=== PATIENT | female | born 1965 | race Caucasian/White ===

== ENCOUNTER 2017-01-14 17:33 | Inpatient (IN) | payer BC ==
[~2017-01-14] VITALS: Ht 165.1 cm; Wt 83.2 kg
[~2017-01-14 17:33] MED LIST: DIPH25CA65 PO; LORA-741 PO; LSX/40 PO; SPIR100T PO; TRAM-10 PO
[2017-01-14] MEDS ORDERED: PANT40TA PO (18:42)
[2017-01-14] MEDS ORDERED: ESCI10TA17 PO (18:42)
[2017-01-14] MEDS ORDERED: SODIUM CHLORIDE 0.9% 1000ML 1,000 ML IV STA (19:26)
[2017-01-14] MEDS ORDERED: OPTIRAY 320 IV PRN (19:30)
[2017-01-14 20:12] LABS: URINE APPEARANCE CLEAR (CLEAR); URINE BILIRUBIN NEG (NEG); URINE COLOR YELLOW; URINE NITRITE NEG (NEG); URINE PH 5.5 (4.5-7.5); URINE SPECIFIC GRAVITY 1.012 (1.000-1.030); UROBILINOGEN NEG (NEG); ZZUR CULT IF INDIC CLEAN CATCH NO
[2017-01-14 20:16] LABS: MANUAL MICROSCOPIC REQUIRED? NO; REVIEW REQ? NO
[2017-01-14 21:01] LABS: HEMATOCRIT 29.6 % (37-47); MEAN CELL VOLUME 88.6 fL (80-100); MEAN CORPUSCULAR HEMOGLOBIN 30.5 pg (25-34); MEAN CORPUSCULAR HGB CONC 34.5 g/dl (32-36); MEAN PLATELET VOLUME 9.3 fL (7.4-10.4); PLATELET COUNT 225 K/uL (130-400); RED BLOOD COUNT 3.34 M/uL (4.2-5.4); WHITE BLOOD COUNT 6.59 K/uL (4.8-10.8)
[2017-01-14 21:08] LABS: INR 1.3 (0.9-1.1); PROTHROMBIN TIME (PATIENT) 13.7 SECONDS (9.0-12.0)
[2017-01-14 21:17] LABS: ALT/SGPT 22 U/L (12-78); BLOOD UREA NITROGEN 6 mg/dl (7-18); BUN/CREATININE RATIO 8.6 (10-20); CALCIUM 8.5 mg/dl (8.5-10.1); CARBON DIOXIDE 22 mmol/L (21-32); CHLORIDE 91 mmol/L (98-107); CREATININE 0.72 mg/dl (0.60-1.20); GLUCOSE 78 mg/dl (70-99); MAGNESIUM 1.7 mg/dl (1.8-2.4); POTASSIUM 3.5 mmol/L (3.5-5.1); SODIUM 124 mmol/L (136-145)
[2017-01-14 21:22] LABS: ALB/GLOB RATIO 0.7 (0.9-2); ALKALINE PHOSPHATASE 232 U/L (45-117); AST/SGOT 57 U/L (15-37)
[2017-01-14 21:26] LABS: BASO % 0.2 %; BASO ABS # 0.01 K/uL (0-0.2); COMPLETE YES; IG% 0.2 %; LYMPH % 15.6 %; LYMPH ABS # 1.03 K/uL (1.2-3.4); MONO % 6.7 %; NEUT % 77.3 %
--- NOTE | 2017-01-14 23:02 | DIAGNOSTIC IMAGING REPORT ---
CT SCAN OF THE ABDOMEN AND PELVIS WITH IV CONTRAST CLINICAL HISTORY: Generalized abdominal pain. COMPARISON STUDY: Abdominal CT dated 02/18/2012. TECHNIQUE: Following the IV administration of 116 cc of Optiray 320, CT scan of the abdomen and pelvis is performed from the lung bases to the proximal femora. Images are reviewed in the axial, sagittal, and coronal planes. IV contrast was administered without complication. Automated dose control exposure was utilized. A dose lowering technique was utilized adhering to the principles of ALARA. CT DOSE: 927.45 mGycm FINDINGS: Lung bases: The heart is normal in size and without pericardial effusion. The lung bases are clear noting dependent atelectasis. Liver: The contrast-enhanced liver is cirrhotic in morphology and heterogeneous in attenuation. There is nodularity of the surface contour as well as widening of the fissures. There is hypertrophy of the left lobe and caudate. There is diffusely diminished attenuation of liver suggesting a component of steatosis. There is no intrahepatic biliary ductal dilatation. The hepatic veins and portal veins are patent. There are perigastric varices, as well as retroperitoneal collateral vessels. Gallbladder: There are calcified gallstones. Mild gallbladder wall thickening is likely related to cirrhosis and ascites. Spleen: The spleen is enlarged, measuring 15.4 cm in length. Pancreas: Moderately atrophic and grossly unremarkable. Adrenal glands: Unremarkable. Kidneys: The contrast enhanced kidneys demonstrate mild cortical atrophy and are without hydronephrosis. The kidneys enhance symmetrically. Abdominal vasculature: The abdominal aorta is normal in course and caliber noting moderate atherosclerotic calcification. Bowel: The small bowel and colon are normal in course and caliber. There is wall thickening and edema seen involving the right colon. The appendix is well-visualized and normal. Peritoneum: There is a small volume of abdominopelvic ascites. No intraperitoneal free air is seen. Lymphadenopathy: None. Pelvic viscera: The bladder, uterus, and adnexa are normal as visualized. Skeletal structures: The skeletal structures are osteopenic. No lytic or blastic lesions are seen. There are chronic left pubic ring fractures. IMPRESSION: 1. Cirrhotic liver morphology with evidence of portal hypertension including splenomegaly, a small volume of abdominopelvic ascites, and collateral vessels. 2. There is wall thickening and edema seen involving the right colon. This likely represents portal colopathy. Correlate clinically for evidence of a superimposed infectious/inflammatory colitis. 3. Cholelithiasis without CT evidence of acute cholecystitis. 4. Additional findings as above. Electronically signed by: Madi Haynes M.D. 01/14/2017 11:01 PM Dictated Date/Time: 01/14/2017 10:54 PM
--- NOTE | 2017-01-14 23:50 | EMERGENCY ROOM VISIT NOTE ---
History Report prepared by Jackelin: Vijay Salmon Under the Supervision of: Dr. Sierra Wang D.O. First contact with patient: 19:11 Chief Complaint: RECTAL BLEEDING Stated Complaint: BLEEDING - STOMACH PAINS Nursing Triage Summary: bright red rectal bleeding x two days with upper abd pain History of Present Illness The patient is a 51 year old female who presents to the Emergency Room with complaints of persistent "bright red" rectal bleeding beginning today. She also complains of "sharp" upper abdominal pain, leg swelling, fatigue and weakness. She has a history of hemorrhoids for the past month and states that they appear to be bleeding "profusely". The patient has a history of ascites due to liver failure from alcoholism. She states that she has not had her abdomen drained in "a while". She states that she is not drinking alcohol currently. The patient also has a history of esophageal varices. She states that her current bleeding has been a "constant ooze". She denies any recent fevers, or chills. The patient currently denies any other bleeding. She has had to have multiple blood transfusions in the past. She is not taking any blood thinners. Source of History: patient Onset: Two days ago Position: other (rectum) Quality: other ("bright red" bleeding) Associated Symptoms: + abdominal pain ("sharp" upper), + fatigue, + weakness , No fevers, No chills Note: The patient also complains of leg swelling. Review of Systems See HPI for pertinent positives & negatives. A total of 10 systems reviewed and were otherwise negative. Past Medical & Surgical Medical Problems: (1) AC ALCOHOLIC HEPATITIS (2) ALCOHOL CIRRHOSIS LIVER (3) Colitis (4) DEPRESSIVE DISORDER NEC (5) DUODENAL ULCER NOS (6) ESOPHAGEAL REFLUX (7) Esophageal varices Family History Patient reports no known family medical history. Social History Smoking Status: Current Every Day Smoker Alcohol Use: heavy Drug Use: other Marital Status: Housing Status: lives with family Occupation Status: employed, other Current/Historical Medications Scheduled Escitalopram (Lexapro), 10 MG PO QAM Furosemide (Lasix), 80 MG PO BID Pantoprazole (Protonix), 40 MG PO BID Spironolactone (Aldactone), 200 MG PO QAM Scheduled PRN Diphenhydramine Hcl (Benadryl Allergy), 1 CAP PO HS PRN for PRN Lorazepam (Ativan), 0.5 MG PO BID PRN for Anxiety Allergies Coded Allergies: No Known Allergies (Verified , 01/16/16) Physical Exam Vital Signs Date Time Temp Pulse Resp B/P (MAP) Pulse Ox O2 Delivery O2 Flow Rate FiO2 01/14/17 22:51 74 18 101/54 98 Room Air 01/14/17 21:30 72 18 96/47 96 Room Air 01/14/17 20:03 70 100/55 96 Room Air 01/14/17 17:45 36.9 80 20 103/62 97 Room Air Physical Exam GENERAL: alert, well appearing, well nourished, no distress, non-toxic EYE EXAM: normal conjunctiva, PERRL and EOM's grossly intact OROPHARYNX: no exudate, no erythema, lips, buccal mucosa, and tongue normal and mucous membranes are moist NECK: supple, no nuchal rigidity, no adenopathy, non-tender LUNGS: Clear to auscultation. Normal chest wall mechanics HEART: no murmurs, S1 normal and S2 normal ABDOMEN: abdomen soft, non-tender, normo-active bowel sounds, no masses, no rebound or guarding, mild distention and fluid wave. BACK: Back is symmetrical on inspection and there is no deformity, no midline tenderness, no CVA tenderness. RECTAL: Several large hemorrhoids noted. None appear thrombosed. No fissures. No stool in the vault. Stool is guaiac negative. SKIN: no rashes and no bruising UPPER EXTREMITIES: upper extremities are grossly normal. LOWER EXTREMITIES: No pitting edema. NEURO EXAM: Normal sensorium, cranial nerves II-XII grossly intact, normal speech, no gross weakness of arms, no gross weakness of legs. Medical Decision & Procedures ER Provider Diagnostic Interpretation: CT:Per my review, radiologist interpretation. CT SCAN OF THE ABDOMEN AND PELVIS WITH IV CONTRAST FINDINGS: Lung bases: The heart is normal in size and without pericardial effusion. The lung bases are clear noting dependent atelectasis. Liver: The contrast-enhanced liver is cirrhotic in morphology and heterogeneous in attenuation. There is nodularity of the surface contour as well as widening of the fissures. There is hypertrophy of the left lobe and caudate. There is diffusely diminished attenuation of liver suggesting a component of steatosis. There is no intrahepatic biliary ductal dilatation. The hepatic veins and portal veins are patent. There are perigastric varices, as well as retroperitoneal collateral vessels. Gallbladder: There are calcified gallstones. Mild gallbladder wall thickening is likely related to cirrhosis and ascites. Spleen: The spleen is enlarged, measuring 15.4 cm in length. Pancreas: Moderately atrophic and grossly unremarkable. Adrenal glands: Unremarkable. Kidneys: The contrast enhanced kidneys demonstrate mild cortical atrophy and are without hydronephrosis. The kidneys enhance symmetrically. Abdominal vasculature: The abdominal aorta is normal in course and caliber noting moderate atherosclerotic calcification. Bowel: The small bowel and colon are normal in course and caliber. There is wall thickening and edema seen involving the right colon. The appendix is well-visualized and normal. Peritoneum: There is a small volume of abdominopelvic ascites. No intraperitoneal free air is seen. Lymphadenopathy: None. Pelvic viscera: The bladder, uterus, and adnexa are normal as visualized. Skeletal structures: The skeletal structures are osteopenic. No lytic or blastic lesions are seen. There are chronic left pubic ring fractures. IMPRESSION: 1. Cirrhotic liver morphology with evidence of portal hypertension including splenomegaly, a small volume of abdominopelvic ascites, and collateral vessels. 2. There is wall thickening and edema seen involving the right colon. This likely represents portal colopathy. Correlate clinically for evidence of a superimposed infectious/inflammatory colitis. 3. Cholelithiasis without CT evidence of acute cholecystitis. 4. Additional findings as above. Electronically signed by: Madi Haynes M.D. Laboratory Results Test 01/14/17 19:58 01/14/17 20:50 Urine Color YELLOW Urine Appearance CLEAR (CLEAR) Urine pH 5.5 (4.5-7.5) Urine Specific [place] 1.012 (1.000-1.030) Urine Protein NEG (NEG) Urine Glucose (UA) NEG (NEG) Urine Ketones NEG (NEG) Urine Occult Blood NEG (NEG) Urine Nitrite NEG (NEG) Urine Bilirubin NEG (NEG) Urine Urobilinogen NEG (NEG) Urine Leukocyte Esterase NEG (NEG) Prothrombin Time 13.7 SECONDS (9.0-12.0) Prothromb Time International Ratio 1.3 (0.9-1.1) Total Bilirubin 2.2 mg/dl (0.2-1) Aspartate Amino Transf (AST/SGOT) 57 U/L (15-37) Alanine Aminotransferase (ALT/SGPT) 22 U/L (12-78) Alkaline Phosphatase 232 U/L (45-117) Troponin I < 0.015 ng/ml (0-0.045) Total Protein 6.6 gm/dl (6.4-8.2) Albumin 2.7 gm/dl (3.4-5.0) Globulin 3.9 gm/dl (2.5-4.0) Albumin/Globulin Ratio 0.7 (0.9-2) Lipase 241 U/L (73-393) Laboratory results per my review. Medications Administered Medications (Trade) Dose Ordered Sig/Betty Route Start Time Stop Time Status Last Admin Dose Admin Sodium Chloride 1,000 ml @ 125 mls/hr Q8H STAT IV 01/14/17 19:26 01/15/17 03:25 DC 01/14/17 19:26 125 MLS/HR ECG Indication: weakness Rate (beats per minute): 71 Rhythm: normal sinus Findings: no acute ischemic change, prolonged QT (mildly), no ectopy, other ( Normal axis. Normal QRS. ) ED Course 1911: The patient was evaluated in room C12B. A complete history and physical exam was performed. 1925: Ordered Sodium Chloride 1000 ml @ 125 mls/hr IV. 0: Upon reevaluation, the patient is resting comfortably. I discussed the findings and the treatment plan with the patient. She expresses agreement and understanding. I spoke with Dr. Fowler of the [facility]. The patient will be evaluated for further management. Medical Decision Differential diagnosis: Etiologies such as diverticulosis, AVM, coagulopathy, colitis, inflammatory bowel disease, malignancy, Lexus-Bustillos tear, esophagitis, peptic ulcer disease , variceal bleed, gastritis, epistaxis, fissure, hemorrhoids, as well as others were entertained. No acute pathology found on CT and no worsening bleeding while in the ER. Negative on bedside testing, however given complication of cirrhosis including variceal bleeding and hemorrhoids. H/H stable compared to prior, hyponatremia worse compared to prior, no new renal dysfunction. VS stable. Mild hypotension here, however pt states she typically runs low. Given risks of bleeding with ascites, chronic anemia, mild chronic hypotension, pt admitted for monitoring as a precaution. No evidence of bacteremia/sepsis, doubt SBP. Pt not in need of emergent transfusion or GI intervention at this time. Doubt upper GI bleed. Medication Reconcilliation Current Medication List: was personally reviewed by me Blood Pressure Screening Patient's blood pressure: Low blood pressure Consults Time Called: [phone] Consulting Physician: Dr. Malcolm Christie Returned Call: [phone] I reviewed the patient's case with Dr. Fowler. Joaquim will evaluate the patient for further management. Impression Primary Impression: Diarrhea Additional Impressions: GI bleed Abdominal pain Hyponatremia Scribe Attestation The scribe's documentation has been prepared under my direction and personally reviewed by me in its entirety. I confirm that the note above accurately reflects all work, treatment, procedures, and medical decision making performed by me. Departure Information Dispostion Being Evaluated By Hospitalist Referrals Stef Hylton D.OJacek (PCP) Patient Instructions My [facility] Problem Qualifiers Primary Impression: Diarrhea Diarrhea type: unspecified type Qualified Codes: R19.7 - Diarrhea, unspecified Additional Impressions: GI bleed GI bleed type/associated pathology: unspecified gastrointestinal hemorrhage type Qualified Codes: K92.2 - Gastrointestinal hemorrhage, unspecified Abdominal pain Abdominal location: upper abdomen, unspecified Qualified Codes: R10.10 - Upper abdominal pain, unspecified
[2017-01-15] VITALS (7 sets, daily range): BP systolic 94–102; BP diastolic 51–64; PULSE 72–86; TEMP 36.8–37; O2SAT 90–97; Ht 165.1 cm; Wt 83.2 kg
[2017-01-15] MEDS ORDERED: FUROSEMIDE 40 MG TAB PO ONE (00:25)
[2017-01-15] MEDS ORDERED: POTASSIUM CHLORIDE 10 MEQ TABCR PO STA (00:25)
[2017-01-15] MEDS ORDERED: ONDANSETRON INJ 2 MG/ML 2 ML VIAL IV PRN (00:30)
[2017-01-15] MEDS ORDERED: ACETAMINOPHEN 325 MG TAB PO PRN (00:30)
[2017-01-15] MEDS ORDERED: MoRPHine SULFATE 4 MG/ML 1 ML CARP\\VIAL IV PRN (00:30)
[2017-01-15] MEDS ORDERED: TRAMADOL HCL 50 MG TAB PO PRN (00:30)
[2017-01-15] MEDS ORDERED: LORAZEPAM 2 MG/ML 1 ML VIAL IV PRN (00:30)
[2017-01-15] MEDS ORDERED: POTASSIUM CHLORIDE 10 MEQ TABCR ONE (00:37)
[2017-01-15] MEDS ORDERED: FUROSEMIDE 40 MG/4 ML VIAL ONE (00:38)
[2017-01-15] MEDS ORDERED: MAGNESIUM SULFATE 1GM / D5W 1 GM BAG ONE (00:38)
[2017-01-15 01:04] LABS: HEMATOCRIT 28.8 % (37-47)
[2017-01-15] MEDS ORDERED: MAGNESIUM SULFATE 1GM / D5W 1 GM in PREMIXED IN D5W 100 ML IV ONE (02:30)
[2017-01-15 07:42] LABS: HEMATOCRIT 27.3 % (37-47); MEAN CELL VOLUME 89.5 fL (80-100); MEAN CORPUSCULAR HEMOGLOBIN 30.8 pg (25-34); MEAN CORPUSCULAR HGB CONC 34.4 g/dl (32-36); MEAN PLATELET VOLUME 10.1 fL (7.4-10.4); PLATELET COUNT 226 K/uL (130-400); RED BLOOD COUNT 3.05 M/uL (4.2-5.4); WHITE BLOOD COUNT 5.62 K/uL (4.8-10.8)
[2017-01-15] MEDS: ESCITALOPRAM OXALATE 10 MG TAB PO SCH (07:48)
[2017-01-15] MEDS: SPIRONOLACTONE 100 MG TAB PO SCH (07:48)
[2017-01-15] MEDS: PANTOprazole SOD 40 MG TAB PO SCH ×2 (07:48→20:46)
[2017-01-15] MEDS: FUROSEMIDE 40 MG TAB PO SCH ×2 (07:48→20:45)
[2017-01-15] MEDS: POTASSIUM CHLORIDE 10 MEQ TABCR PO SCH (07:49)
[2017-01-15] MEDS: LORAZEPAM 0.5 MG TAB PO PRN ×2 (07:53→23:26)
[2017-01-15] MEDS: NICOTINE 7 MG/24 HR TDSY TD SCH (07:53)
[2017-01-15 08:20] LABS: BUN/CREATININE RATIO 9.4 (10-20); CREATININE 0.69 mg/dl (0.60-1.20); MAGNESIUM 1.9 mg/dl (1.8-2.4); POTASSIUM 3.9 mmol/L (3.5-5.1)
[2017-01-15 08:37] LABS: BASO % 0.2 %; BASO ABS # 0.01 K/uL (0-0.2); COMPLETE YES; EOS % 0.5 %; IG% 0.2 %; LYMPH % 19.9 %; LYMPH ABS # 1.12 K/uL (1.2-3.4); MONO % 9.4 %; NEUT % 69.8 %
--- NOTE | 2017-01-15 09:30 | HISTORY & PHYSICAL EXAMINATION ---
DATE OF ADMISSION: 01/14/2017 PRIMARY CARE PHYSICIAN: Dr. Hylton. CHIEF COMPLAINT: Abdominal pain, rectal bleeding. HISTORY OF PRESENT ILLNESS: History obtained from patient and records. Medical history significant for alcoholic cirrhosis, esophageal varices, mood disorder, ongoing tobacco abuse, past alcohol abuse, chronic anemia (baseline hemoglobin of 9-10), chronic hyponatremia, diverticulosis. Recent confinement last June 2014 for UGIB secondary to esophageal varices. Last night the patient noted right-sided achy upper abdominal pain with bloody diarrhea, multiple episodes as per patient. No chest pain, no shortness of breath. Denies NSAID intake. Admits to some nausea, dry heaving. No hematemesis. Some leg swelling. No recent travel, no recent antibiotics. At the Emergency Room, stool hemoccult was noted to be negative. Subsequent bowel movement in the ER noted to be brown, nonbloody. MEDICAL HISTORY: As above. 2015 EGD showed grade 2 esophageal varices status post banding. 2009 colonoscopy showed diverticulosis. SURGERIES: She has had bilateral tubal ligation. HOME MEDICATIONS: Include Benadryl, Lexapro, Lasix, Ativan, Protonix, Aldactone. ALLERGIES: No known drug allergies. FAMILY HISTORY: Stroke, breast cancer. PERSONAL AND SOCIAL HISTORY: One-half pack daily. No recent or past alcohol abuse. Works as a [employer] employee. REVIEW OF SYSTEMS: As per HPI, all other ROS negative. PHYSICAL EXAMINATION: VITAL SIGNS: Blood pressure was noted to be 140/80. Pulse rate 70, RR 18, temperature 37, O2 sats 98 on room air. GENERAL: Obese, slightly anxious. SKIN: Pallor. HEAD, EYES, EARS, NOSE, AND THROAT: Pale palpebral conjunctivae. Dry mucosa. NECK: Short neck. LUNGS: Decreased breath sounds. HEART: Regular rate and rhythm. ABDOMEN: Right-sided abdominal tenderness. EXTREMITIES: Minimal LE edema. No tenderness NEUROLOGIC: No gross focality. LABORATORY DATA: Hemoglobin 10.2, platelets 225 sodium to be 124, potassium 3.5, chloride 91, CO2 22, BUN 20, glucose was noted to be 87. CT abdomen and pelvis showed cirrhosis with portal hypertension, splenomegaly, small volume of abdominal and pelvic ascites collateral vessels, right colon wall thickening, possible colopathy, cholelithiasis ASSESSMENT: 1. Lower gastrointestinal bleed R colitis on CT Rule out Clostridium difficile. hemodynamically stable Hemoccult negative in the ER Subsequent bowel movements at the ER nonbloody as per patient Rule out C. difficile 2. Chronic anemia, hemoglobin at baseline 3. alcoholic cirrhosis. no overt decompensation 4. Acute on chronic hyponatremia 5. ongoing tobacco abuse. PLAN: [facility] Stool C. diff. Follow H&H. Home in a.m. if hemoglobin stable. May need GI consult if with/recurrence of GI bleed. Patient known to [facility]. Follow serum sodium Nicotine patch DVT prophylaxis SCDs. Re: GI bleed FULL CODE. MTDD
--- NOTE | 2017-01-15 16:09 | Progress Note ---
Internal Med Progress Note Date of Service: Jan 15, 2017. Provider Documentation: SUBJECTIVE: Diarrhea has resolved no episode of blood in stool tolerating diet no abdominal pain or discomfort OBJECTIVE: Vital Signs-as noted below Exam: General-no sign of distress Eyes-sclera no icteric ENT-NAD Neck-no JVD Lungs-CTA Heart-regular Abdomen-mildly distended , no tenderness , normal bowel sound Extremities-no lower ext edema Neuro-AAO x3, no focal deficit Lab data as noted below. ASSESSMENT & PLAN: DIARRHEA /REPORT OF BLOOD IN STOOL symptom has resolved , blood or dark stool noted Hemoccult negative in the ER pt mentions of taking Pepto Bismol recently that can cause transient diarrhea and dark stool symptom already improved markedly tolerating diet observe overnight PRN Imodium ordered possible discharge in AM Chronic anemia hemoglobin at baseline Alcoholic cirrhosis/Hx of Esophageal varices : no evidence of decompensation Cont Lasix , Aldactone Hyponatremia: chronic due to liver disease Na improved to baseline DVT PROPHYLAXIS scd and teds ambulate DISPOSITION possible discharge home tomorrow Vital Signs: Date Time Temp Pulse Resp B/P (MAP) Pulse Ox O2 Delivery O2 Flow Rate FiO2 01/15/17 15:17 36.8 78 16 96/56 (69) 96 Room Air 01/15/17 08:00 94 Room Air 01/15/17 07:45 36.9 86 16 94/51 (65) 90 Room Air 01/15/17 02:31 96 Room Air 01/15/17 01:30 37.0 72 18 96/59 (71) 97 Room Air 01/15/17 00:58 78 18 105/58 96 Room Air 01/15/17 00:04 77 18 102/48 95 Room Air 01/14/17 22:51 74 18 101/54 98 Room Air 01/14/17 21:30 72 18 96/47 96 Room Air 01/14/17 20:03 70 100/55 96 Room Air 01/14/17 17:45 36.9 80 20 103/62 97 Room Air Lab Results: Results Past 24 Hours Test 01/14/17 19:58 01/14/17 20:50 01/15/17 00:57 01/15/17 06:47 Range/Units Urine Color YELLOW Urine Appearance CLEAR CLEAR Urine pH 5.5 4.5-7.5 Urine Specific [place] 1.012 1.000-1.030 Urine Protein NEG NEG Urine Glucose (UA) NEG NEG Urine Ketones NEG NEG Urine Occult Blood NEG NEG Urine Nitrite NEG NEG Urine Bilirubin NEG NEG Urine Urobilinogen NEG NEG Urine Leukocyte Esterase NEG NEG White Blood Count 6.59 5.62 4.8-10.8 K/uL Red Blood Count 3.34 3.05 4.2-5.4 M/uL Hemoglobin 10.2 9.9 9.4 12.0-16.0 g/dL Hematocrit 29.6 28.8 27.3 37-47 % Mean Corpuscular Volume 88.6 89.5 80-100 fL Mean Corpuscular Hemoglobin 30.5 30.8 25-34 pg Mean Corpuscular Hemoglobin Concent 34.5 34.4 32-36 g/dl Platelet Count 225 226 130-400 K/uL Mean Platelet Volume 9.3 10.1 7.4-10.4 fL Neutrophils (%) (Auto) 77.3 69.8 % Lymphocytes (%) (Auto) 15.6 19.9 % Monocytes (%) (Auto) 6.7 9.4 % Eosinophils (%) (Auto) 0.0 0.5 % Basophils (%) (Auto) 0.2 0.2 % Neutrophils # (Auto) 5.10 3.92 1.4-6.5 K/uL Lymphocytes # (Auto) 1.03 1.12 1.2-3.4 K/uL Monocytes # (Auto) 0.44 0.53 0.11-0.59 K/uL Eosinophils # (Auto) 0.00 0.03 0-0.5 K/uL Basophils # (Auto) 0.01 0.01 0-0.2 K/uL RDW Standard Deviation 53.5 54.7 36.4-46.3 fL RDW Coefficient of Variation 16.3 16.7 11.5-14.5 % Immature Granulocyte % (Auto) 0.2 0.2 % Immature Granulocyte # (Auto) 0.01 0.01 0.00-0.02 K/uL Prothrombin Time 13.7 9.0-12.0 SECONDS Prothromb Time International Ratio 1.3 0.9-1.1 Sodium Level 124 129 131 136-145 mmol/L Potassium Level 3.5 3.9 3.5-5.1 mmol/L Chloride Level 91 99 98-107 mmol/L Carbon Dioxide Level 22 25 21-32 mmol/L Anion Gap 11.0 7.0 3-11 mmol/L Blood Urea Nitrogen 6 7 7-18 mg/dl Creatinine 0.72 0.69 0.60-1.20 mg/dl Est Creatinine Clear Calc Drug Dose 96.3 100.4 ml/min Estimated GFR () 110.8 115.2 Estimated GFR (Non- 95.6 99.4 BUN/Creatinine Ratio 8.6 9.4 10-20 Random Glucose 78 100 70-99 mg/dl Calcium Level 8.5 8.0 8.5-10.1 mg/dl Magnesium Level 1.7 1.9 1.8-2.4 mg/dl Total Bilirubin 2.2 0.2-1 mg/dl Aspartate Amino Transf (AST/SGOT) 57 15-37 U/L Alanine Aminotransferase (ALT/SGPT) 22 12-78 U/L Alkaline Phosphatase 232 45-117 U/L Troponin I < 0.015 0-0.045 ng/ml Total Protein 6.6 6.4-8.2 gm/dl Albumin 2.7 3.4-5.0 gm/dl Globulin 3.9 2.5-4.0 gm/dl Albumin/Globulin Ratio 0.7 0.9-2 Lipase 241 73-393 U/L Osmolality 264 280-300 mOsm/kg Test 01/15/17 09:33 Range/Units Hepatitis C Antibody Screen NEG NEG
[2017-01-15] MEDS ORDERED: LOPERAMIDE HCL 2 MG CAP PO PRN (16:15)
--- NOTE | 2017-01-15 16:25 | Discharge Instructions ---
Discharge Instructions Date of Service Jan 15, 2017. Admission Reason for Admission: Colitis Discharge Discharge Diagnosis / Problem: DIARRHEA /ABDOMINAL PAIN Discharge Goals Goal(s): Improve disease control, Diagnostic testing Activity Recommendations Activity Limitations: resume your previous activity . Instructions / Follow-Up Instructions / Follow-Up HOSPITAL FOLLOW UP : 01/23/2017 11:20 AM Stef Hylton DO General Internal Medicine [facility] GASTROENTEROLOGY FOLLOW UP : 02/06/2017 9:20 AM Tan Funk MD Gastroenterology, [facility] Hospital Diet Patient's current hospital diet: Low Potassium Diet (2g K), Low Lactose Diet Discharge Diet Recommended Diet: Low Lactose Diet Pending Studies Studies pending at discharge: no Medical Emergencies . Who to Call and When: Medical Emergencies: If at any time you feel your situation is an emergency, please call 911 immediately. . Non-Emergent Contact Non-Emergency issues call your: Primary Care Provider . . "Provider Documentation" section prepared by Nerissa Barton. . VTE Core Measure Inpt VTE Proph given/why not?: Joy Ellis, SCD's
[2017-01-16 07:21] VITALS: BP 92/54; PULSE 71; TEMP 36.7; O2SAT 96
[2017-01-16 07:34] LABS: BASO % 0.6 %; BASO ABS # 0.02 K/uL (0-0.2); COMPLETE YES; IG% 0.3 %; LYMPH % 7.9 %; LYMPH ABS # 0.28 K/uL (1.2-3.4); MEAN CORPUSCULAR HEMOGLOBIN 29.3 pg (25-34); MEAN CORPUSCULAR HGB CONC 32.5 g/dl (32-36); MEAN PLATELET VOLUME 9.3 fL (7.4-10.4); MONO % 26.7 %; NEUT % 62.5 %; PLATELET COUNT 182 K/uL (130-400); RED BLOOD COUNT 3.11 M/uL (4.2-5.4); WHITE BLOOD COUNT 3.56 K/uL (4.8-10.8)
[2017-01-16] MEDS: LORAZEPAM 0.5 MG TAB PO PRN (07:52)
[2017-01-16] MEDS: PANTOprazole SOD 40 MG TAB PO SCH (07:53)
[2017-01-16] MEDS: FUROSEMIDE 40 MG TAB PO SCH (07:53)
[2017-01-16] MEDS: ESCITALOPRAM OXALATE 10 MG TAB PO SCH (07:53)
[2017-01-16] MEDS: POTASSIUM CHLORIDE 10 MEQ TABCR PO SCH (07:54)
[2017-01-16] MEDS: SPIRONOLACTONE 100 MG TAB PO SCH (07:54)
[2017-01-16] MEDS: NICOTINE 7 MG/24 HR TDSY TD SCH (07:54)
[2017-01-16 08:00] VITALS: O2SAT 96
[2017-01-16 08:30] LABS: BUN/CREATININE RATIO 8.8 (10-20); CREATININE 0.67 mg/dl (0.60-1.20); POTASSIUM 3.3 mmol/L (3.5-5.1)
--- NOTE | 2017-01-16 10:09 | Progress Note ---
Internal Med Progress Note Date of Service: Jan 16, 2017. Provider Documentation: SUBJECTIVE: no episode of diarrhea tolerating diet no abdominal pain or nausea stable to be discharged home today OBJECTIVE: Vital Signs-as noted below Exam: General-no sign of distress Eyes-sclera no icteric ENT-NAD Neck-no JVD Lungs-CTA Heart-regular Abdomen-mildly distended , no tenderness , normal bowel sound Extremities-no lower ext edema Neuro-AAO x3, no focal deficit Lab data as noted below. ASSESSMENT & PLAN: DIARRHEA /REPORT OF BLOOD IN STOOL symptom has resolved , no diarrhea or dark stool , no blood in stool H&H stable Hemoccult negative in the ER pt mentions of taking Pepto Bismol recently that can cause transient diarrhea and dark stool tolerating diet PRN Imodium ordered stable to be discharged today Chronic anemia hemoglobin at baseline Alcoholic cirrhosis/Hx of Esophageal varices : no evidence of decompensation Cont Lasix , Aldactone Hyponatremia: chronic due to liver disease Na improved to baseline DVT PROPHYLAXIS scd and teds ambulate DISPOSITION discharge home today Vital Signs: Date Time Temp Pulse Resp B/P (MAP) Pulse Ox O2 Delivery O2 Flow Rate FiO2 01/16/17 08:00 96 Room Air 01/16/17 07:21 36.7 71 16 92/54 (67) 96 Room Air 01/16/17 00:00 Room Air 01/15/17 23:07 36.9 73 16 95/58 (70) 97 Room Air 01/15/17 20:49 102/64 (77) 01/15/17 16:00 Room Air 01/15/17 15:17 36.8 78 16 96/56 (69) 96 Room Air Lab Results: Results Past 24 Hours Test 01/16/17 07:16 Range/Units White Blood Count 3.56 4.8-10.8 K/uL Red Blood Count 3.11 4.2-5.4 M/uL Hemoglobin 9.1 12.0-16.0 g/dL Hematocrit 28.0 37-47 % Mean Corpuscular Volume 90.0 80-100 fL Mean Corpuscular Hemoglobin 29.3 25-34 pg Mean Corpuscular Hemoglobin Concent 32.5 32-36 g/dl Platelet Count 182 130-400 K/uL Mean Platelet Volume 9.3 7.4-10.4 fL Neutrophils (%) (Auto) 62.5 % Lymphocytes (%) (Auto) 7.9 % Monocytes (%) (Auto) 26.7 % Eosinophils (%) (Auto) 2.0 % Basophils (%) (Auto) 0.6 % Neutrophils # (Auto) 2.23 1.4-6.5 K/uL Lymphocytes # (Auto) 0.28 1.2-3.4 K/uL Monocytes # (Auto) 0.95 0.11-0.59 K/uL Eosinophils # (Auto) 0.07 0-0.5 K/uL Basophils # (Auto) 0.02 0-0.2 K/uL RDW Standard Deviation 54.8 36.4-46.3 fL RDW Coefficient of Variation 16.8 11.5-14.5 % Immature Granulocyte % (Auto) 0.3 % Immature Granulocyte # (Auto) 0.01 0.00-0.02 K/uL Sodium Level 131 136-145 mmol/L Potassium Level 3.3 3.5-5.1 mmol/L Chloride Level 96 98-107 mmol/L Carbon Dioxide Level 27 21-32 mmol/L Anion Gap 8.0 3-11 mmol/L Blood Urea Nitrogen 6 7-18 mg/dl Creatinine 0.67 0.60-1.20 mg/dl Est Creatinine Clear Calc Drug Dose 103.4 ml/min Estimated GFR () 116.3 Estimated GFR (Non- 100.4 BUN/Creatinine Ratio 8.8 10-20 Random Glucose 82 70-99 mg/dl Calcium Level 8.0 8.5-10.1 mg/dl
--- NOTE | 2017-01-16 10:10 | Discharge Summary ---
Discharge Summary Date of Service Jan 16, 2017. Discharge Summary Admission Date: Jan 14, 2017 at 23:54 Discharge Date: Jan 16, 2017 Discharge Disposition: Home Principal Diagnosis: DIARRHEA /ABDOMINAL PAIN Procedures: CT ABDOMEN /PELVIS : IMPRESSION: 1. Cirrhotic liver morphology with evidence of portal hypertension including splenomegaly, a small volume of abdominopelvic ascites, and collateral vessels. 2. There is wall thickening and edema seen involving the right colon. This likely represents portal colopathy. Correlate clinically for evidence of a superimposed infectious/inflammatory colitis. 3. Cholelithiasis without CT evidence of acute cholecystitis. 4. Additional findings as above. Medication Reconciliation Continued Medications: Diphenhydramine Hcl (Benadryl Allergy) 25 Mg Cap 1 CAP PO HS PRN for PRN for 30 Days, #30 CAP Escitalopram (Lexapro) 10 Mg Tab 10 MG PO QAM Furosemide (Lasix) 40 Mg Tab 80 MG PO BID Lorazepam (Ativan) 0.5 Mg Tab 0.5 MG PO BID PRN for Anxiety Pantoprazole (Protonix) 40 Mg Tab 40 MG PO BID Spironolactone (Aldactone) 100 Mg Tab 200 MG PO QAM Admission Information HPI (per Admitting provider): DATE OF ADMISSION: 01/14/2017 PRIMARY CARE PHYSICIAN: Dr. Hylton. CHIEF COMPLAINT: Abdominal pain, rectal bleeding. HISTORY OF PRESENT ILLNESS: History obtained from patient and records. Medical history significant for alcoholic cirrhosis, esophageal varices, mood disorder, ongoing tobacco abuse, past alcohol abuse, chronic anemia (baseline hemoglobin of 9-10), chronic hyponatremia, diverticulosis. Recent confinement last June 2014 for UGIB secondary to esophageal varices. Last night the patient noted right-sided achy upper abdominal pain with bloody diarrhea, multiple episodes as per patient. No chest pain, no shortness of breath. Denies NSAID intake. Admits to some nausea, dry heaving. No hematemesis. Some leg swelling. No recent travel, no recent antibiotics. At the Emergency Room, stool hemoccult was noted to be negative. Subsequent bowel movement in the ER noted to be brown, nonbloody. MEDICAL HISTORY: As above. 2015 EGD showed grade 2 esophageal varices status post banding. 2009 colonoscopy showed diverticulosis. SURGERIES: She has had bilateral tubal ligation. HOME MEDICATIONS: Include Benadryl, Lexapro, Lasix, Ativan, Protonix, Aldactone. ALLERGIES: No known drug allergies. FAMILY HISTORY: Stroke, breast cancer. PERSONAL AND SOCIAL HISTORY: One-half pack daily. No recent or past alcohol abuse. Works as a [employer] employee. Physical Exam (per Admitting): REVIEW OF SYSTEMS: As per HPI, all other ROS negative. PHYSICAL EXAMINATION: VITAL SIGNS: Blood pressure was noted to be 140/80. Pulse rate 70, RR 18, temperature 37, O2 sats 98 on room air. GENERAL: Obese, slightly anxious. SKIN: Pallor. HEAD, EYES, EARS, NOSE, AND THROAT: Pale palpebral conjunctivae. Dry mucosa. NECK: Short neck. LUNGS: Decreased breath sounds. HEART: Regular rate and rhythm. ABDOMEN: Right-sided abdominal tenderness. EXTREMITIES: Minimal LE edema. No tenderness NEUROLOGIC: No gross focality. Hospital Course DIARRHEA /REPORT OF BLOOD IN STOOL symptom has resolved , no diarrhea or dark stool , no blood in stool H&H stable Hemoccult negative in the ER pt mentions of taking Pepto Bismol recently that can cause transient diarrhea and dark stool tolerating diet PRN Imodium ordered stable to be discharged today Chronic anemia hemoglobin at baseline Alcoholic cirrhosis/Hx of Esophageal varices : no evidence of decompensation Cont Lasix , Aldactone Hyponatremia: chronic due to liver disease Na improved to baseline DVT PROPHYLAXIS scd and teds ambulate DISPOSITION discharge home today Total time spent on discharge = 35 mins This includes examination of the patient, discharge planning, medication reconciliation, and communication with other providers. Discharge Instructions Discharge Instructions Date of Service Jan 15, 2017. Admission Reason for Admission: Colitis Discharge Discharge Diagnosis / Problem: DIARRHEA /ABDOMINAL PAIN Discharge Goals Goal(s): Improve disease control, Diagnostic testing Activity Recommendations Activity Limitations: resume your previous activity . Instructions / Follow-Up Instructions / Follow-Up HOSPITAL FOLLOW UP : 01/23/2017 11:20 AM Stef Hylton DO General Internal Medicine [facility] GASTROENTEROLOGY FOLLOW UP : 02/06/2017 9:20 AM Tan Funk MD Gastroenterology, [facility] Current Hospital Diet Patient's current hospital diet: Low Potassium Diet (2g K), Low Lactose Diet Discharge Diet Recommended Diet: Low Lactose Diet Pending Studies Studies pending at discharge: no Medical Emergencies . Who to Call and When: Medical Emergencies: If at any time you feel your situation is an emergency, please call 911 immediately. . Non-Emergent Contact Non-Emergency issues call your: Primary Care Provider . . "Provider Documentation" section prepared by Nerissa Barton. . VTE Core Measure Inpt VTE Proph given/why not?: Joy Ellis, SCD's Additional Copies To Stef Hylton D.O.
[2017-01-16] MEDS ORDERED: POTASSIUM CHLORIDE 10 MEQ TABCR PO ONE (10:15)
[2017-01-16 10:55] VITALS: BP 92/54; PULSE 71; TEMP 36.7; O2SAT 96
--- NOTE | 2017-01-17 12:55 | EDITING REQUIRED CODING QUERY ---
CODING QUERY To promote full compliance with coding requirements relating to patient care, provider participation is requested in all cases of screener and blender uncertainty. Please assist us with the question(s) below: Coding Question(s): Patient admitted with abdominal pain, rectal bleeding, and diarrhea. Progress note states "patient taking Pepto Bismol that can cause diarrhea and dark stools". Please document, if known or suspected, the etiology of the patients' rectal bleeding and othe GI symptoms if known or suspected. Thanks for your help! Juan [facility] Osman [facility] Physician's Response(s): There was no actual diagnosis of rectal bleed Stool heme occult was negative in ER No dark stool or GI bleed noted on admission pt did not had any GI symptoms pt's reports of dark stool and diarrhea prior to admission could be secondary to medication induced Principal Diagnosis: "_that condition established after study, to be chiefly responsible for occasioning the admission of the patient to the hospital for care." Co-Existing Principal Diagnosis: "_when two or more diagnoses equally meet the criteria for principal diagnosis as determined by the circumstances of admission, diagnostic work up, and/or therapy provided, and the Alphabetic Index, Tabular List, or another coding guideline does not provide sequencing direction, any one of the diagnoses may be sequenced first." "When the physician has documented what appears to be a current diagnosis in the body of the record, but has not included the diagnosis in the final diagnostic statement, the physician should be asked whether the diagnosis should be added." (Source Coding Clinic 2 QTR90. p3-4)
[2017-02-11] MEDS ORDERED: PRMT25 PO (12:24)
[2017-02-11] MEDS ORDERED: SPR25 PO (12:24)
[2017-02-11] MEDS ORDERED: MULTTAB PO (12:24)
[2017-02-11] MEDS ORDERED: LCTL45 PO (12:24)
[2017-02-11] MEDS ORDERED: THM100 PO (12:24)
[2017-02-11] MEDS ORDERED: LSX40 PO (12:24)
[2017-02-11] MEDS ORDERED: ONDA4TAB65 PO (13:44)
[2017-02-11] MEDS ORDERED: TRAM-10 PO (13:44)
[2017-03-01] MEDS ORDERED: NYSS5 PO (12:47)
[2017-03-01] MEDS ORDERED: PRMT25 PO (12:47)
[2017-03-01] MEDS ORDERED: LACT12LO EXT (12:47)
[2017-03-01] MEDS ORDERED: THM100 PO (13:38)
[2017-03-01] MEDS ORDERED: AMOX875T PO (13:38)
[2017-03-01] MEDS ORDERED: MCRK20 PO (13:38)
[2017-03-01] MEDS ORDERED: FLV1 PO (13:38)
[2017-03-12] MEDS ORDERED: SPR25 PO (20:57)
== END 2017-01-16 14:57 | disposition home or self-care (01) | DRG 392 ==
LOC: C.EDB 17:34 → C.MS2W 23:54 → ENRESERV 01-15 00:50
PROVIDERS: ADMIT Hospitalist; ATTEND Hospitalist
DX: R19.7 Diarrhea, unspecified (principal); F10.24 Alcohol dependence with alcohol-induced mood disorder; I85.10 Secondary esophageal varices without bleeding; E87.1 Hypo-osmolality and hyponatremia; K76.6 Portal hypertension; R10.9 Unspecified abdominal pain; K70.31 Alcoholic cirrhosis of liver with ascites; F17.200 Nicotine dependence, unspecified, uncomplicated; D64.9 Anemia, unspecified; K57.90 Diverticulosis of intestine, part unspecified, without perforation or abscess without bleeding

== ENCOUNTER 2017-02-02 20:13 | Inpatient (IN) | payer BC ==
[~2017-02-02] VITALS: Ht 165.1 cm; Wt 84.1 kg
[~2017-02-02 20:13] MED LIST changes: +ESCI10TA17 PO; +PANT40TA PO; -TRAM-10 PO
[2017-02-02] MEDS ORDERED: TRAM-10 PO (20:51)
[2017-02-02] MEDS ORDERED: LORAZEPAM 2 MG/ML 1 ML VIAL IV STA (20:54)
[2017-02-02] MEDS ORDERED: SODIUM CHLORIDE 0.9% 1000ML 500 ML IV STA (20:54)
[2017-02-02 20:55] LABS: ISTAT CREATININE 1.4 mg/dl (0.6-1.3); ISTAT HEMOGLOBIN 10.2 g/dl (12.0-16.0); ISTAT IONIZED CALCIUM 1.07 mmol/l (1.12-1.32)
--- NOTE | 2017-02-02 21:10 | EMERGENCY ROOM VISIT NOTE ---
History Report prepared by Jackelin: Shea Munoz Under the Supervision of: Dr. Madi Orellana M.D. First contact with patient: 20:50 Chief Complaint: SEIZURE Stated Complaint: ABD PAIN Nursing Triage Summary: Patient reports taking multiple tramadol for "severe stomach pain." Per daughter, patient has hx of alcoholism, alcoholic liver disease, states "it seems like every year she has a problem with bleeding. She has been transferred out of here for bleeding from everywhere, stomach, esophagous. This has been getting worse for months this time." History of Present Illness The patient is a 52 year old female who presents to the Emergency Room with complaints of seizure like activity that occurred prior to arrival. She is accompanied by her daughter. The patient was seen by her [facility] md recently for abdominal pain, which she states she has experienced for the past 3 weeks, but the pain worsened over the past 2 days. The patient's daughter reports she witnessed the patient "fall forward after lighting up a cigarette" in the ED parking lot, and fall to the ground. She ran to get a wheelchair and found the patient very confused when she came too. She denies witnessing the patient shaking at all. She notes the patient became incontinent of her bladder during the episode. The patient herself admits to recent vomiting for the past "couple of days" along with her increased abdominal pain. She has a history of alcoholic hepatitis and alcoholic cirrhosis. She admits she still drinks alcohol regularly, but denies any ETOH use earlier today and states the last time she drank was last night. She also denies any major injuries being sustained during her fall this evening except for cuts along her fingers. The patient does admit to some recent shortness of breath and fatigue. Her PCP is Dr. Hylton with [facility] and she also follows with Dr. Funk of [facility] Gastroenterology. Source of History: patient, family (daughter) Onset: US[employer] Position: other (global) Quality: other (seizure like activity) Timing: resolved Associated Symptoms: + SOB, + vomiting, + abdominal pain, + fatigue Review of Systems See HPI for pertinent positives & negatives. A total of 10 systems reviewed and were otherwise negative. Past Medical & Surgical Medical Problems: (1) AC ALCOHOLIC HEPATITIS (2) ALCOHOL CIRRHOSIS LIVER (3) Cirrhosis, alcoholic (4) Colitis (5) DEPRESSIVE DISORDER NEC (6) DUODENAL ULCER NOS (7) ESOPHAGEAL REFLUX (8) Esophageal varices (9) Syncope and collapse Family History Patient reports no known family medical history. Social History Smoking Status: Current Every Day Smoker Alcohol Use: heavy Drug Use: other Marital Status: Housing Status: lives with family Occupation Status: employed, other Current/Historical Medications Scheduled Escitalopram (Lexapro), 10 MG PO QAM Furosemide (Lasix), 80 MG PO BID Pantoprazole (Protonix), 40 MG PO BID Spironolactone (Aldactone), 200 MG PO QAM Scheduled PRN Lorazepam (Ativan), 0.5 MG PO BID PRN for Anxiety Tramadol (Ultram), 100 MG PO NEEDED PRN for Pain Allergies Coded Allergies: No Known Allergies (Verified , 01/16/16) Physical Exam Vital Signs Date Time Temp Pulse Resp B/P (MAP) Pulse Ox O2 Delivery O2 Flow Rate FiO2 02/02/17 23:53 60 02/02/17 23:26 58 18 85/45 95 Room Air 02/02/17 21:01 92 Room Air 02/02/17 20:39 60 02/02/17 20:15 36.6 64 18 98/42 98 Room Air Physical Exam GENERAL: Patient is in no acute distress. HEENT: No acute trauma, normocephalic atraumatic, mucous membranes moist, no nasal congestion, mild scleral icterus. NECK: No stridor, no adenopathy, no meningismus, trachea is midline. LUNGS: Clear to auscultation bilaterally, no wheeze, no rhonchi, breath sounds equal. HEART: Without murmurs gallops or rubs, regular rate and rhythm. ABDOMEN: Soft, distended, tender in the LUQ, bowel sounds positive, no hernias, no peritonitis. EXTREMITIES: No cyanosis, full range of motion of all the joints without pain or difficulty, abrasions to dorsal fingers, consistent with fall, no evidence for fracture. Moderate bilateral pedal edema. NEUROLOGIC: Oriented x 3, no acute motor or sensory deficits, no focal weakness. SKIN: Jaundice noted, no cellulitis. Medical Decision & Procedures ER Provider Diagnostic Interpretation: Radiology results as stated below per my review and radiologist interpretation: CT OF THE ABDOMEN AND PELVIS WITHOUT CONTRAST CLINICAL HISTORY: Abdominal pain. Possible obstruction. Weakness. COMPARISON STUDY: CT of the abdomen and pelvis January 14, 2017. TECHNIQUE: Axial images of the abdomen and pelvis were obtained without IV contrast. Images were reviewed in the axial, sagittal, and coronal planes. A dose lowering technique was utilized adhering to the principles of ALARA. FINDINGS: Moderate cardiomegaly is noted. Groundglass opacities within visualized portions of the lungs likely reflect atelectasis. Evaluation of the abdomen and pelvis is suboptimal given the lack of IV and oral contrast. Moderate abdominal and pelvic ascites is noted. The liver is markedly dysmorphic with nodularity of the liver surface and enlargement of the caudate lobe and lateral segment. Capsular retraction within the right hepatic lobe is noted. Sensitivity for detection of hepatic lesions diminished on this unenhanced exam but none are identified. There are gallstones within the gallbladder. Mild splenomegaly is noted with extensive varices throughout the abdomen and pelvis. There is no evidence for a bowel obstruction. The appendix is normal. An old left ischiopubic ring fracture is noted. There are multiple bilateral rib fractures. There is apparent wall thickening of the gastric body. IMPRESSION: 1. Cirrhosis with manifestations of portal hypertension including moderate ascites, mild splenomegaly and extensive varices formation. Suboptimal evaluation of the abdomen and pelvis given the lack of IV contrast. 2. Cholelithiasis. 3. Apparent gastric wall thickening. This is likely due to underdistention although gastritis could have this appearance. 4. No bowel obstruction. Normal appendix. Electronically signed by: Ruben Matos M.D. 02/02/2017 10:49 PM Dictated Date/Time: 02/02/2017 10:39 PM CHEST ONE VIEW PORTABLE CLINICAL HISTORY: Altered mental status. Weakness. COMPARISON STUDY: Chest CT July 06, 2014. FINDINGS: There is no pneumothorax or pleural effusion. Linear bibasilar opacities reflect atelectasis. There is no evidence of pulmonary edema. No consolidation is identified to suggest pneumonia. Cardiomediastinal silhouette is stable. There is no evidence of pulmonary edema. IMPRESSION: No acute cardiopulmonary findings. Electronically signed by: Ruben Matos M.D. 02/02/2017 9:[address] OF THE HEAD WITHOUT CONTRAST CLINICAL HISTORY: Altered mental status. COMPARISON STUDY: Head CT February 16, 2012. CT DOSE: 537.48 mGy.cm TECHNIQUE: Helical axial images of the head were obtained without IV contrast. Automated exposure control was utilized for the study. A dose lowering technique was utilized adhering to the principles of ALARA. FINDINGS: No acute intracranial hemorrhage, midline shift or mass effect is present. Mild to moderate atrophy is noted. Ventricular system is unremarkable. The basilar cisterns are patent. There are no extra-axial collections. There are no findings to suggest acute dural sinus thrombosis or acute territorial infarct. There are no significant calvarial abnormalities. Visualized portions of the sinuses and mastoid air cells are clear. IMPRESSION: No acute intracranial findings. Electronically signed by: Ruben Matos M.D. 02/02/2017 10:33 PM Laboratory Results 02/02/17 20:30 Red Blood Count 2.85, Mean Corpuscular Volume 87.4, Mean Corpuscular Hemoglobin 31.6, Mean Corpuscular Hemoglobin Concent 36.1, Mean Platelet Volume 11.1, Neutrophils (%) (Auto) 72.7, Lymphocytes (%) (Auto) 15.8, Monocytes (%) (Auto) 9.9, Eosinophils (%) (Auto) 0.5, Basophils (%) (Auto) 0.2, Neutrophils # (Auto) 4.25, Lymphocytes # (Auto) 0.92, Monocytes # (Auto) 0.58, Eosinophils # (Auto) 0.03, Basophils # (Auto) 0.01 Test 02/02/17 20:30 02/02/17 20:38 02/02/17 20:39 02/02/17 21:25 White Blood Count 5.84 K/uL (4.8-10.8) Red Blood Count 2.85 M/uL (4.2-5.4) Hemoglobin 9.0 g/dL (12.0-16.0) Hematocrit 24.9 % (37-47) Mean Corpuscular Volume 87.4 fL (80-100) Mean Corpuscular Hemoglobin 31.6 pg (25-34) Mean Corpuscular Hemoglobin Concent 36.1 g/dl (32-36) Platelet Count 52 K/uL (130-400) Mean Platelet Volume 11.1 fL (7.4-10.4) Neutrophils (%) (Auto) 72.7 % Lymphocytes (%) (Auto) 15.8 % Monocytes (%) (Auto) 9.9 % Eosinophils (%) (Auto) 0.5 % Basophils (%) (Auto) 0.2 % Neutrophils # (Auto) 4.25 K/uL (1.4-6.5) Lymphocytes # (Auto) 0.92 K/uL (1.2-3.4) Monocytes # (Auto) 0.58 K/uL (0.11-0.59) Eosinophils # (Auto) 0.03 K/uL (0-0.5) Basophils # (Auto) 0.01 K/uL (0-0.2) RDW Standard Deviation 55.8 fL (36.4-46.3) RDW Coefficient of Variation 17.3 % (11.5-14.5) Immature Granulocyte % (Auto) 0.9 % Immature Granulocyte # (Auto) 0.05 K/uL (0.00-0.02) Platelet Estimate DECREASED Large Platelets 1+ Echinocytes 1+ Prothrombin Time 14.8 SECONDS (9.0-12.0) Prothromb Time International Ratio 1.4 (0.9-1.1) Activated Partial Thromboplast Time 38.5 SECONDS (21.0-31.0) Partial Thromboplastin Ratio 1.5 Est Creatinine Clear Calc Drug Dose 59.2 ml/min Magnesium Level 1.7 mg/dl (1.8-2.4) Total Bilirubin 4.1 mg/dl (0.2-1) Direct Bilirubin 2.4 mg/dl (0-0.2) Aspartate Amino Transf (AST/SGOT) 46 U/L (15-37) Alanine Aminotransferase (ALT/SGPT) 18 U/L (12-78) Alkaline Phosphatase 212 U/L (45-117) Ammonia 88.0 umol/L (11-32) Total Creatine Kinase 96 U/L (26-192) Troponin I < 0.015 ng/ml (0-0.045) Total Protein 5.8 gm/dl (6.4-8.2) Albumin 2.4 gm/dl (3.4-5.0) Lipase 121 U/L (73-393) Thyroid Stimulating Hormone (TSH) 1.570 uIu/ml (0.300-4.500) Bedside Lactic Acid Venous 2.95 mmol/L (0.90-1.70) Bedside Hemoglobin 10.2 g/dl (12.0-16.0) Bedside Hematocrit 30 % (37-47) Bedside Sodium 111 mEq/L (135-144) Bedside Potassium 4.4 mEq/L (3.3-5.0) Bedside Chloride 79 mEq/L (101-112) Bedside Total CO2 21 mEq/l (24-31) Bedside Blood Urea Nitrogen 11 mg/dl (7-18) Bedside Creatinine 1.4 mg/dl (0.6-1.3) Bedside Glucose (other) 114 mg/dl (70-99) Bedside Ionized Calcium (Stacey) 1.07 mmol/l (1.12-1.32) Urine Color DK YELLOW Urine Appearance CLEAR (CLEAR) Urine pH 5.0 (4.5-7.5) Urine Specific [place] 1.015 (1.000-1.030) Urine Protein NEG (NEG) Urine Glucose (UA) NEG (NEG) Urine Ketones NEG (NEG) Urine Occult Blood NEG (NEG) Urine Nitrite NEG (NEG) Urine Bilirubin NEG (NEG) Urine Urobilinogen NEG (NEG) Urine Leukocyte Esterase NEG (NEG) Test 02/02/17 21:52 02/02/17 23:27 Ethyl Alcohol mg/dL < 3.0 mg/dl (0-3) Laboratory results reviewed by me. Medications Administered Medications (Trade) Dose Ordered Sig/Betty Route Start Time Stop Time Status Last Admin Dose Admin Sodium Chloride 500 ml @ 999 mls/hr Q31M STAT IV 02/02/17 20:54 02/02/17 21:24 DC 02/02/17 21:06 999 MLS/HR Lorazepam (Ativan Inj) 0.5 mg NOW STAT IV 02/02/17 20:54 02/02/17 20:59 DC 02/02/17 21:07 0.5 MG Sodium Chloride 500 ml @ 999 mls/hr Q31M STAT IV 02/02/17 22:45 02/02/17 23:15 DC 02/02/17 22:45 999 MLS/HR ECG Indication: weakness (seizure like activity) Rate (beats per minute): 63 Rhythm: normal sinus Findings: no acute ischemic change, no ectopy ED Course 2051: The patient was evaluated in room A3. A complete history and physical exam was performed. 2053: Ativan 0.5 mg IV, NSS 500 ml @ 999 mls/hr IV. 2244: NSS 500 ml @ 999 mls/hr IV. 2257: I reevaluated the patient. She is resting comfortably. I discussed her results and my recommendation she remain in the hospital for further evaluation and management. She verbalized complete understanding and agreement. 2305: I discussed the patient case with Joaquim Coleman. The patient will be further evaluated. Medical Decision The differential diagnoses considered include electrolyte imbalance, seizure, syncope, dehydration, worsening liver failure, intracranial bleeding, infection , bowel obstruction, abdominal mass, splenic injury and UTI. There is no leukocytosis. The patient is anemic but she has a history of this and her hemoglobin appears stable. Renal panel testing shows hyponatremia with a sodium about 114. No kidney failure. She does have liver enzyme elevations consistent with her liver disease however, her bilirubin is twice the value it was the last time we checked. No pancreatitis by our testing. There was a mild coagulopathy, likely consistent with her liver disease. Ammonia level was elevated again, consistent with her liver disease. Chest film did not show any pneumonia or CHF. EKG showed a normal sinus rhythm, no acute ischemia. Brain CT showed no acute bleed or mass effect. Abdominal and pelvis CT showed some chronic findings, no acute bowel obstruction, no acute process in the left upper quadrant that would explain her pain. Urinalysis does not show infection. Alcohol level was undetectable. The patient received IV saline and IV Ativan, she is doing fairly well although her blood pressure remains somewhat low. There has been no seizure-like activity noted by us and I am not convinced she had a seizure outside in the hospital parking lot. She felt lightheaded and fell forward and may have had a syncopal event but the daughter did not report any shaking or seizure-like activity. The patient requires a hospital stay. I talked to her about her findings. The on-call hospitalist has been consulted and case management is involved. Medication Reconcilliation Current Medication List: was personally reviewed by me Blood Pressure Screening Patient's blood pressure: Low blood pressure Blood pressure disposition: Did not require urgent referral Consults Time Called: [phone] Consulting Physician: Joaquim Coleman Returned Call: [phone] I discussed the patient case with Joaquim Colemanist. The patient will be further evaluated. Impression Primary Impression: Hyponatremia Additional Impressions: Syncope Liver failure Abdominal pain, left upper quadrant Scribe Attestation The scribe's documentation has been prepared under my direction and personally reviewed by me in its entirety. I confirm that the note above accurately reflects all work, treatment, procedures, and medical decision making performed by me. Departure Information Dispostion Being Evaluated By Hospitalist Referrals No Doctor, Assigned (PCP) Patient Instructions My [facility] Problem Qualifiers
[2017-02-02 21:17] LABS: HEMATOCRIT 24.9 % (37-47); MEAN CELL VOLUME 87.4 fL (80-100); MEAN CORPUSCULAR HEMOGLOBIN 31.6 pg (25-34); MEAN CORPUSCULAR HGB CONC 36.1 g/dl (32-36); RED BLOOD COUNT 2.85 M/uL (4.2-5.4); WHITE BLOOD COUNT 5.84 K/uL (4.8-10.8)
--- NOTE | 2017-02-02 21:21 | DIAGNOSTIC IMAGING REPORT ---
CHEST ONE VIEW PORTABLE CLINICAL HISTORY: Altered mental status. Weakness. COMPARISON STUDY: Chest CT July 06, 2014. FINDINGS: There is no pneumothorax or pleural effusion. Linear bibasilar opacities reflect atelectasis. There is no evidence of pulmonary edema. No consolidation is identified to suggest pneumonia. Cardiomediastinal silhouette is stable. There is no evidence of pulmonary edema. IMPRESSION: No acute cardiopulmonary findings. Electronically signed by: Ruben Matos M.D. 02/02/2017 9:20 PM Dictated Date/Time: 02/02/2017 9:19 PM
[2017-02-02 21:34] LABS: ALT/SGPT 18 U/L (12-78); BLOOD UREA NITROGEN 11 mg/dl (7-18); BUN/CREATININE RATIO 9.3 (10-20); CARBON DIOXIDE 21 mmol/L (21-32); CHLORIDE 81 mmol/L (98-107); GLUCOSE 109 mg/dl (70-99); MAGNESIUM 1.7 mg/dl (1.8-2.4); POTASSIUM 4.4 mmol/L (3.5-5.1)
[2017-02-02 21:35] LABS: INR 1.4 (0.9-1.1); PARTIAL THROMBOPLASTIN RATIO 1.5; PROTHROMBIN TIME (PATIENT) 14.8 SECONDS (9.0-12.0); SODIUM 114 mmol/L (136-145)
[2017-02-02 21:47] LABS: ALKALINE PHOSPHATASE 212 U/L (45-117); AST/SGOT 46 U/L (15-37)
[2017-02-02 21:49] LABS: URINE APPEARANCE CLEAR (CLEAR); URINE BILIRUBIN NEG (NEG); URINE COLOR DK YELLOW; URINE NITRITE NEG (NEG); URINE SPECIFIC GRAVITY 1.015 (1.000-1.030); UROBILINOGEN NEG (NEG); ZZURINE CULT IF INDIC CATH NO
[2017-02-02 21:54] LABS: MANUAL MICROSCOPIC REQUIRED? NO; REVIEW REQ? NO
[2017-02-02 22:02] LABS: PLATELET COUNT 52 K/uL (130-400)
[2017-02-02 22:03] LABS: BASO % 0.2 %; BASO ABS # 0.01 K/uL (0-0.2); COMPLETE YES; ECHINOCYTES 1+; EOS % 0.5 %; IG% 0.9 %; LARGE PLATELETS 1+; LYMPH % 15.8 %; LYMPH ABS # 0.92 K/uL (1.2-3.4); MEAN PLATELET VOLUME 11.1 fL (7.4-10.4); MONO % 9.9 %; NEUT % 72.7 %; PLT ESTIMATE DECREASED
--- NOTE | 2017-02-02 22:34 | DIAGNOSTIC IMAGING REPORT ---
CT OF THE HEAD WITHOUT CONTRAST CLINICAL HISTORY: Altered mental status. COMPARISON STUDY: Head CT February 16, 2012. CT DOSE: 537.48 mGy.cm TECHNIQUE: Helical axial images of the head were obtained without IV contrast. Automated exposure control was utilized for the study. A dose lowering technique was utilized adhering to the principles of ALARA. FINDINGS: No acute intracranial hemorrhage, midline shift or mass effect is present. Mild to moderate atrophy is noted. Ventricular system is unremarkable. The basilar cisterns are patent. There are no extra-axial collections. There are no findings to suggest acute dural sinus thrombosis or acute territorial infarct. There are no significant calvarial abnormalities. Visualized portions of the sinuses and mastoid air cells are clear. IMPRESSION: No acute intracranial findings. Electronically signed by: Ruben Matos M.D. 02/02/2017 10:33 PM Dictated Date/Time: 02/02/2017 10:30 PM
[2017-02-02] MEDS ORDERED: SODIUM CHLORIDE 0.9% 500ML 500 ML IV STA (22:45)
--- NOTE | 2017-02-02 22:50 | DIAGNOSTIC IMAGING REPORT ---
CT OF THE ABDOMEN AND PELVIS WITHOUT CONTRAST CLINICAL HISTORY: Abdominal pain. Possible obstruction. Weakness. COMPARISON STUDY: CT of the abdomen and pelvis January 14, 2017. TECHNIQUE: Axial images of the abdomen and pelvis were obtained without IV contrast. Images were reviewed in the axial, sagittal, and coronal planes. A dose lowering technique was utilized adhering to the principles of ALARA. FINDINGS: Moderate cardiomegaly is noted. Groundglass opacities within visualized portions of the lungs likely reflect atelectasis. Evaluation of the abdomen and pelvis is suboptimal given the lack of IV and oral contrast. Moderate abdominal and pelvic ascites is noted. The liver is markedly dysmorphic with nodularity of the liver surface and enlargement of the caudate lobe and lateral segment. Capsular retraction within the right hepatic lobe is noted. Sensitivity for detection of hepatic lesions diminished on this unenhanced exam but none are identified. There are gallstones within the gallbladder. Mild splenomegaly is noted with extensive varices throughout the abdomen and pelvis. There is no evidence for a bowel obstruction. The appendix is normal. An old left ischiopubic ring fracture is noted. There are multiple bilateral rib fractures. There is apparent wall thickening of the gastric body. IMPRESSION: 1. Cirrhosis with manifestations of portal hypertension including moderate ascites, mild splenomegaly and extensive varices formation. Suboptimal evaluation of the abdomen and pelvis given the lack of IV contrast. 2. Cholelithiasis. 3. Apparent gastric wall thickening. This is likely due to underdistention although gastritis could have this appearance. 4. No bowel obstruction. Normal appendix. Electronically signed by: Ruben Matos M.D. 02/02/2017 10:49 PM Dictated Date/Time: 02/02/2017 10:39 PM
[2017-02-02] MEDS ORDERED: ONDANSETRON INJ 2 MG/ML 2 ML VIAL IV PRN (23:30)
[2017-02-02] MEDS ORDERED: LORAZEPAM 0.5 MG TAB PO PRN (23:45)
[2017-02-02] MEDS ORDERED: TRAMADOL HCL 50 MG TAB PO PRN (23:45)
[2017-02-02] MEDS ORDERED: MAGNESIUM SULFATE 1GM / D5W 1 GM in PREMIXED IN D5W 100 ML IV STA (23:47)
[2017-02-03] VITALS (11 sets, daily range): BP systolic 65–112; BP diastolic 30–56; PULSE 55–66; TEMP 36.4–36.7; O2SAT 91–96; Ht 165.1 cm; Wt 84.1 kg
[2017-02-03 00:56] LABS: BUN/CREATININE RATIO 9.3 (10-20); CALCIUM 7.7 mg/dl (8.5-10.1); CREATININE 1.2 mg/dl (0.60-1.20); POTASSIUM 4.4 mmol/L (3.5-5.1)
[2017-02-03] MEDS ORDERED: SODIUM CHLORIDE 0.9% 1000ML 1,000 ML IV SCH ×3 (01:00→16:45)
--- NOTE | 2017-02-03 04:46 | HISTORY & PHYSICAL EXAMINATION ---
DATE OF ADMISSION: 02/02/2017 PRIMARY CARE PHYSICIAN: Dr. Hylton. CHIEF COMPLAINT: Abdominal pain, left upper quadrant, with a syncopal episode. HISTORY OF PRESENT COMPLAINT: She is a 52-year-old female with significant past medical history of alcoholic cirrhosis with history of hepatic encephalopathy, esophageal varices status, depression, hypotension, iron deficiency anemia and alcohol dependence, apparently has been complaining of left upper quadrant pain for the last 2 weeks. She was seen by Dr. Warner madsen on 2nd of this month. At that time, her sodium was low at 121 and also her AST was up. She continues to drink alcohol. She was complaining of abdominal pain and was prescribed Ultram for the pain control. She has been using Ultram, but the pain did not go away. She was coming to the ER this evening and from the cars in the parking lot to the door to the ER, she collapsed. Her daughter was with her. She did not have a significant injury, but no definite history of convulsions at this time. In the ER, she was hemodynamically stable. She was lethargic and weak and her sodium was noted to be 114 and from that point, she was admitted to telemetry unit for continuation of care. PAST MEDICAL HISTORY: Significant for alcoholic cirrhosis with alcohol dependency, esophageal varices, history of hepatic encephalopathy, depression, hypotension, and iron deficiency anemia. PAST SURGICAL HISTORY: delivery, EGD on 01/16/2016 showed esophageal varices. SOCIAL HISTORY: She is . She has 5 children. She smoked quarter pack per day, 30 years. She continues to drink beer on the weekend. She is generally weak but otherwise reasonably active. FAMILY HISTORY: Paternal grandmother had breast cancer. Mother from a stroke at 75. Father at 49 and do not know the cause. REVIEW OF SYSTEMS: Other systemic review unremarkable except those mentioned in the history of present illness. PHYSICAL EXAMINATION: GENERAL: On examination in the emergency room, she was drowsy but not confused. She was not having any acute distress. VITAL SIGNS: Temperature 36.6, pulse 64, blood pressure 92/42, and saturation 92% on room air. HEENT: Unremarkable. NECK: Supple. No JVD, no bruit. CHEST: Clear to auscultation bilaterally with decreased breath sound both bases. HEART: S1, S2 regular. ABDOMEN: Nondistended, soft, may have minimal amount of ascites and tenderness noted over upper quadrant mostly on the left side. Bowel sounds present. EXTREMITIES: 1+ edema bilaterally. MUSCULOSKELETAL SYSTEM: No acute arthritis in any joint. CENTRAL NERVOUS SYSTEM: She was alert, awake, oriented x3. Generally weak, but no focal sensory and/or motor deficit appreciated. LABORATORY DATA: Noted today white count was 5.84, hemoglobin 9, hematocrit 24.9, and platelet was 52. Sodium 111, potassium 4.4, chloride 81, carbon dioxide 21, anion gap 12, BUN 11, creatinine 1.2, random glucose 114. Lactic acid was 2.95, calcium 8.0. Magnesium 1.7, total bilirubin 4.1, direct 2.4, AST 446, ALT 18, alkaline phosphatase 212, ammonia level was 88, albumin 2.4. Lipase 121, TSH 1.50. INR 1.4, PTT ratio 1.5. Ethyl alcohol was less than 3. UA examination unremarkable. IMAGING DATA: CT of the head, no acute intracranial injury following the fall. Chest x-ray, no acute cardiopulmonary finding and CT of the abdomen and pelvis reported as cirrhosis with manifestations of portal hypertension including moderate ascites, mild splenomegaly and extensive varices formation. Suboptimal evaluation of the abdomen and pelvis given the lack of IV contrast. Cholelithiasis without cholecystitis and apparent gastric wall thickening, this is likely due to under distention, although gastritis could have this appearance. No bowel obstruction. EKG was in sinus rhythm, rate of 63 per minute, normal axis and no acute ST-T wave changes. IMPRESSION AND PLAN: 1. Hyponatremia secondary to cirrhosis. Her sodium was 121 on 2nd of this month. She is received 500 x2 bolus of normal alkaline in the emergency room by the ER physician. We will repeat sodium level. If it is low, we will give a small amount of hypertonic saline to improve sodium, otherwise continue with normal saline. The case was discussed with a video poker floorman. The cause of hyponatremia is due to cirrhosis. 2. Syncope and collapse, likely secondary to ongoing weakness and tiredness could be contributed by hyponatremia. No evidence of any seizure activity. The collapse can be due to low blood pressure as well which she has due to cirrhosis again and intravascular dehydration. 3. Cirrhosis of liver secondary to alcohol abuse.Left upper Quadrant pain, likely secondary to gastritis/stretching of the splenic capsule.Continue Tramadol. She has extensive esophageal and gastric varices. A CT scan did show moderate ascites with mild splenomegaly and extensive adhesions formation. We will continue with her current medications. We will get a GI evaluation while in the hospital. 4. Esophageal varices as mentioned earlier and continue with Protonix. 5. Deep venous thrombosis prophylaxis. We will not give any pharmacologic anticoagulation due to low platelet. 6. Code status -- she will be a full code. In my clinical judgment, the beneficiary meets criteria as per CMS for 2 midnight stay in the hospital. CAROL
[2017-02-03 06:50] LABS: HEMATOCRIT 24.4 % (37-47); MEAN CELL VOLUME 87.5 fL (80-100); MEAN CORPUSCULAR HEMOGLOBIN 31.5 pg (25-34); MEAN CORPUSCULAR HGB CONC 36.1 g/dl (32-36); RED BLOOD COUNT 2.79 M/uL (4.2-5.4); WHITE BLOOD COUNT 3.71 K/uL (4.8-10.8)
[2017-02-03 07:29] LABS: BUN/CREATININE RATIO 11.3 (10-20); CALCIUM 7.8 mg/dl (8.5-10.1); CREATININE 1.1 mg/dl (0.60-1.20); MAGNESIUM 1.9 mg/dl (1.8-2.4); PHOSPHORUS 3.4 mg/dl (2.5-4.9); POTASSIUM 4.2 mmol/L (3.5-5.1)
[2017-02-03 07:38] LABS: MEAN PLATELET VOLUME 11.2 fL (7.4-10.4); PLATELET COUNT 36 K/uL (130-400)
[2017-02-03] MEDS ORDERED: TRAMADOL HCL 50 MG TAB PO PRN (08:15)
[2017-02-03] MEDS ORDERED: LIDODERM (LIDOCAINE) PATCH 5% TD ONE (08:30)
[2017-02-03] MEDS: ESCITALOPRAM OXALATE 10 MG TAB PO SCH (08:44)
[2017-02-03] MEDS ORDERED: SPIRONOLACTONE 100 MG TAB PO SCH (09:00)
[2017-02-03] MEDS ORDERED: PANTOprazole SOD 40 MG TAB PO SCH (09:00)
[2017-02-03 10:52] LABS: BUN/CREATININE RATIO 12.4 (10-20); CALCIUM 7.6 mg/dl (8.5-10.1); POTASSIUM 3.9 mmol/L (3.5-5.1)
[2017-02-03 13:33] LABS: BUN/CREATININE RATIO 11.3 (10-20); CALCIUM 7.6 mg/dl (8.5-10.1); CREATININE 1.1 mg/dl (0.60-1.20); POTASSIUM 3.8 mmol/L (3.5-5.1)
--- NOTE | 2017-02-03 14:17 | NEPHROLOGY CONSULTATION ---
DATE OF CONSULTATION: 02/03/2017 REASON FOR CONSULT: Severe hyponatremia. HISTORY OF PRESENT ILLNESS: The patient is a 52-year-old female with a history of alcoholic cirrhosis who is still drinking heavily. She also has history of hepatic encephalopathy, esophageal varices, depression, chronic hypertension, iron deficiency anemia. She has been complaining of a left upper quadrant for the last few weeks. She was seen by Dr. Hylton who is her PCP 10 days ago, even at that time her sodium was low at 121 and her liver enzymes were up. She continues to drink alcohol. She says she had her birthday just a few days ago where she drank more than usual. As for the pain she was prescribed Ultram, which she took yesterday. It did not help her pain, but she then became very goofy and had altered mental status and she apparently passed out. According to the daughter, the patient had a seizure episode where she was shaking violently and had urinary incontinence. She was brought to the hospital after that. Her sodium at the time of admission was 111, after which she was given normal saline and a few hours later blood sodium was repeated and it had gone up to 116. Normal saline was continued overnight. This morning labs showed a serum sodium of 118. The patient does have lower extremity edema as well as ascites. As an outpatient, she takes both Lasix and spironolactone. She claims she takes her medicines as prescribed. It is worth noting that patient drinks a massive amount of liquid. She drinks about 12 glasses of water per day as well as few sodas. She also drinks about 4 cups of tea and then drinks beer 3-4 most of the days. So even by going by her account, her daily fluid intake is more than 200 ounces per day and it is more likely to be 300 ounces per day which is incredibly high for a patient with advanced liver cirrhosis. At this time, patient appears fairly comfortable and she was eating her breakfast when I interviewed her. PAST MEDICAL AND SURGICAL HISTORY: Alcoholic cirrhosis with alcohol dependency, esophageal varices, history of hepatic encephalopathy, depression, hypertension, chronic anemia. PAST SURGICAL HISTORY: , endoscopy done last year showed esophageal varices. SOCIAL HISTORY: She is . She has 5 children. 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 She has a [id number] history of smoking. She continues to drink beer most of the days. She claims she drinks about 3-4 at one session. FAMILY HISTORY: Grandmother had breast cancer. Mother of a stroke. REVIEW OF SYSTEMS: A full 12 system was reviewed and unless stated otherwise in the HPI and was negative. PHYSICAL EXAMINATION: GENERAL: At the time of my examination, she appears awake, alert, oriented x3. She was eating her breakfast without much problem. She does not appear to be in any distress at all. VITAL SIGNS: Most recent blood pressure this morning was 84/50, 94% on room air, pulse rate 60 per minute, temperature 36.7, respiratory rate 18 per minute. HEENT: Unremarkable. NECK: Supple. No jugular venous distention. No carotid bruit. Mucous membrane is moist. CHEST: Bilateral decreased breath sounds with occasional wheezing. HEART: S1 and S2, regular. ABDOMEN: Distended, it is tender in the left upper quadrant as well as right upper quadrant. She does have some ascites. EXTREMITIES: Show 1+ edema bilaterally with pitting in nature. LABORATORY TESTS: At the time of admission, she had a critically low serum sodium of 111, this morning labs shows a serum 118. As stated earlier, 10 days ago she had a serum sodium of 121 when done as an outpatient, creatinine 1.0, BUN 12. Lactic acid was elevated at the time of admission at 2.95, calcium 7.6, phosphorus 3.4, magnesium 1.9, potassium 3.9, BUN 12. Urinalysis done shows blood is negative, protein is negative, specific gravity 1.015, platelet count 36,000, hemoglobin 8.8, WBC count 3.71. ASSESSMENT AND PLAN: A 52-year-old female with advanced liver disease from alcoholic cirrhosis, admitted with critical hyponatremia and possible mental status change/seizure. It is hard to prove for sure that whether she had a seizure or not. However, given the bladder incontinence and witnessed activity it is possible she really did have seizure as she is very high risk of having that given her alcoholic cirrhosis and very low serum sodium. The etiology of hyponatremia is obviously advanced liver disease. She does not follow any fluid restriction at all. Her daily fluid intake seems more like 300 ounce per day which is incredibly high and it is no wonder her serum sodium runs very low even as an outpatient and she did have more alcohol than usual the last few days because of her birthday constitution party and was probably the cause of drop to the critically low level of 111. Her blood pressure is low and is related with liver disease. Surprisingly, she actually looks quite good despite her advanced liver disease and her low blood pressure. I agree with not giving any more normal saline as the serum sodium has already corrected from 111-118. It is slightly faster rate of correction but given that she had symptoms as well as possible seizure, it is reasonable to correct somewhat fast, but she appears very normal now, so we do not have to correct any further. I believe if we continue with the fluid restriction her serum sodium should go up. Her blood pressure is too low to give any Lasix for now, but we can certainly use this in the coming days. Thank you very much for the consult. CAROL
[2017-02-03 16:04] LABS: BUN/CREATININE RATIO 11.1 (10-20); CALCIUM 7.7 mg/dl (8.5-10.1); CREATININE 1.3 mg/dl (0.60-1.20); POTASSIUM 3.8 mmol/L (3.5-5.1)
[2017-02-03] MEDS ORDERED: FUROSEMIDE INJ 40 MG in SYRINGE 0 ML IV ONE (17:00)
[2017-02-03] MEDS: ALBUMIN HUMAN 25% 12.5 GM/50 ML VIAL IV ONE ×2 (18:11→18:33)
[2017-02-03 20:11] LABS: BUN/CREATININE RATIO 12.3 (10-20); CALCIUM 7.8 mg/dl (8.5-10.1); CREATININE 1.2 mg/dl (0.60-1.20)
[2017-02-03] MEDS ORDERED: LORAZEPAM 1 MG TAB PO PRN (20:45)
--- NOTE | 2017-02-03 20:54 | Progress Note ---
Medicine Progress Note Date & Time of Visit: Feb 03, 2017 at 20:47. Subjective patient seen resting in bed, alert, oriented, appears tired but comfortable states she feels ok main complaint is point tenderness near the left subcostal region, worse with movement denies headache, dizziness,nausea/vomiting, dyspnea, cough denies tremors, anxiety, hallucinations states last drink was last week no other symptoms Objective Last 8 Hrs Date Time Temp Pulse Resp B/P (MAP) Pulse Ox O2 Delivery O2 Flow Rate FiO2 02/03/17 19:37 36.7 61 19 80/39 (53) 93 Room Air 78/42 (54) 02/03/17 16:00 95 Room Air 02/03/17 15:15 36.7 59 20 82/49 (60) 95 Room Air 84/50 (61) Physical Exam: General- oriented x 3, not in distress, speaks in sentences with no effort Head- atraumatic Eyes-EOMI, anicteric ENT- oropharynx clear Neck- supple, no JVD, no adenopathy, no thyromegaly Lungs- clear to auscultation bilaterally (+) spider angiomata on the chest (+) tenderness on the left subcostal region Heart- regular rhythm; no murmur, normal rate Abdomen- normal bowel sounds, soft, nontender, non distended Extremities- no pretibial edema, no calf tenderness; peripheral pulses intact Neuro- alert, oriented x 3; no gross focal deficits Skin- warm & dry Laboratory Results: Last 24 Hours Test 02/02/17 21:25 02/02/17 21:52 02/03/17 00:26 02/03/17 06:34 Urine Color DK YELLOW Urine Appearance CLEAR Urine pH 5.0 Urine Specific [place] 1.015 Urine Protein NEG Urine Glucose (UA) NEG Urine Ketones NEG Urine Occult Blood NEG Urine Nitrite NEG Urine Bilirubin NEG Urine Urobilinogen NEG Urine Leukocyte Esterase NEG Ethyl Alcohol mg/dL < 3.0 mg/dl Sodium Level 116 mmol/L 116 mmol/L Potassium Level 4.4 mmol/L 4.2 mmol/L Chloride Level 84 mmol/L 84 mmol/L Carbon Dioxide Level 23 mmol/L 24 mmol/L Anion Gap 8.0 mmol/L 8.0 mmol/L Blood Urea Nitrogen 11 mg/dl 12 mg/dl Creatinine 1.20 mg/dl 1.10 mg/dl Est Creatinine Clear Calc Drug Dose 58.3 ml/min 63.6 ml/min Estimated GFR () 59.3 65.9 Estimated GFR (Non- 51.2 56.9 BUN/Creatinine Ratio 9.3 11.3 Random Glucose 96 mg/dl 81 mg/dl Calcium Level 7.7 mg/dl 7.8 mg/dl White Blood Count 3.71 K/uL Red Blood Count 2.79 M/uL Hemoglobin 8.8 g/dL Hematocrit 24.4 % Mean Corpuscular Volume 87.5 fL Mean Corpuscular Hemoglobin 31.5 pg Mean Corpuscular Hemoglobin Concent 36.1 g/dl RDW Standard Deviation 56.1 fL RDW Coefficient of Variation 17.4 % Platelet Count 36 K/uL Mean Platelet Volume 11.2 fL Phosphorus Level 3.4 mg/dl Magnesium Level 1.9 mg/dl Test 02/03/17 09:53 02/03/17 12:46 02/03/17 14:17 02/03/17 15:26 Sodium Level 118 mmol/L 118 mmol/L 117 mmol/L Potassium Level 3.9 mmol/L 3.8 mmol/L 3.8 mmol/L Chloride Level 85 mmol/L 85 mmol/L 85 mmol/L Carbon Dioxide Level 24 mmol/L 24 mmol/L 25 mmol/L Anion Gap 8.0 mmol/L 9.0 mmol/L 7.0 mmol/L Blood Urea Nitrogen 12 mg/dl 12 mg/dl 14 mg/dl Creatinine 1.00 mg/dl 1.10 mg/dl 1.30 mg/dl Est Creatinine Clear Calc Drug Dose 69.9 ml/min 63.6 ml/min 53.8 ml/min Estimated GFR () 74.0 65.9 53.9 Estimated GFR (Non- 63.8 56.9 46.5 BUN/Creatinine Ratio 12.4 11.3 11.1 Random Glucose 87 mg/dl 105 mg/dl 104 mg/dl Calcium Level 7.6 mg/dl 7.6 mg/dl 7.7 mg/dl Urine Osmolality 258 mOms/kg Test 02/03/17 19:33 Sodium Level 117 mmol/L Potassium Level 4.0 mmol/L Chloride Level 85 mmol/L Carbon Dioxide Level 25 mmol/L Anion Gap 6.0 mmol/L Blood Urea Nitrogen 15 mg/dl Creatinine 1.20 mg/dl Est Creatinine Clear Calc Drug Dose 58.3 ml/min Estimated GFR () 59.3 Estimated GFR (Non- 51.2 BUN/Creatinine Ratio 12.3 Random Glucose 94 mg/dl Calcium Level 7.8 mg/dl Date/Time Source Procedure Growth Status 02/02/17 21:52 Blood Blood Culture Pending Received 02/02/17 21:50 Blood Blood Culture Pending Received 02/03/17 00:25 Nasal MRSA DNA Surveillance Screen - Final Specimen Negative for MRSA by DNA Probe Complete Assessment & Plan IMPRESSION AND PLAN: Hyponatremia secondary to cirrhosis - Na improving - Nephro consulted monitor Syncope and collapse, likely secondary to hyponatremia, hypotension -- continue to correct Na monitor BP Left upper Quadrant pain,likely secondary to gastritis/stretching of the splenic capsule vs. rib fracture -- Tramadol PRN Lidoderm patch Cirrhosis of liver secondary to alcohol abuse. Alcoholic Hepatitis? - last drink was last Saturday as per patient Bilirubin increasing compared to last admission platelets also decreasing, no signs of bleeding at this time Ct abdomen:IMPRESSION: 1. Cirrhosis with manifestations of portal hypertension including moderate ascites, mild splenomegaly and extensive varices formation. Suboptimal evaluation of the abdomen and pelvis given the lack of IV contrast. 2. Cholelithiasis. 3. Apparent gastric wall thickening. This is likely due to underdistention although gastritis could have this appearance. 4. No bowel obstruction. Normal appendix. - Ammonia elevated no signs of encephalopathy will start Lactulose - Discriminant Function score: 17 will hold off steroids consult GI - Thrombocytopenia Plt trending down no signs of bleeding will hold 2 units Plts - Esophageal varices no signs of bleeding Protonix IV BID - INR seems to be at baseline monitor 5. Deep venous thrombosis prophylaxis. We will not give any pharmacologic anticoagulation due to low platelet. 6. Code status -- she will be a full code. Discharge planning: uncertain (needs PT/OT) Current Inpatient Medications: Current Inpatient Medications Medications (Trade) Dose Ordered Sig/Btety Route Start Time Stop Time Status Last Admin Dose Admin Ondansetron HCl (Zofran Inj) 4 mg Q6H PRN IV 02/02/17 23:30 03/04/17 23:29 Escitalopram Oxalate (Lexapro Tab) 10 mg QAM PO 02/03/17 09:00 03/05/17 08:59 02/03/17 08:44 10 MG Lorazepam (Ativan Tab) 0.5 mg BID PRN PO 02/02/17 23:45 03/04/17 23:44 Pantoprazole Sodium (Protonix Tab) 40 mg BID PO 02/03/17 09:00 03/05/17 08:59 02/03/17 08:44 40 MG Tramadol HCl (Ultram Tab) 50 mg Q12H PRN PO 02/03/17 08:15 03/05/17 08:14 02/03/17 14:19 50 MG Lidocaine (Lidoderm Patch 5%) 1 patch QAM TD 02/04/17 09:00 03/06/17 08:59 Miscellaneous (Remove Lidoderm Patch) 1 ea DAILY@21 N/A 02/03/17 21:00 03/05/17 20:59 Sodium Chloride 1,000 ml @ 100 mls/hr Q10H IV 02/03/17 16:45 03/05/17 16:44 02/03/17 17:05 100 MLS/HR
[2017-02-03] MEDS ORDERED: LACTULOSE SYRUP 30 GM/45 ML UDP PO SCH (21:00)
[2017-02-03] MEDS ORDERED: NURSING VERBAL MED ORDER ONE ×2 (21:00→23:45)
[2017-02-03] MEDS ORDERED: PANTOprazole INJ 40 MG in SYRINGE 0 ML IV STA (21:17)
[2017-02-03] MEDS ORDERED: MIDODRINE 10 MG TAB PO STA (21:21)
[2017-02-03] MEDS ORDERED: ALBUMIN 25% 50 ML with FUROSEMIDE INJ 40 MG IV STA ×2 (21:22)
[2017-02-03] MEDS ORDERED: SODIUM CHLORIDE 1 GM TAB PO STA (21:23)
[2017-02-03] MEDS: THIAMINE HCL 100 MG TAB PO SCH (21:53)
[2017-02-03 22:05] LABS: PARTIAL THROMBOPLASTIN RATIO 1.5
[2017-02-03] MEDS: TRAMADOL HCL 50 MG TAB PO PRN (23:50)
[2017-02-04] VITALS (14 sets, daily range): BP systolic 75–96; BP diastolic 41–58; PULSE 60–75; TEMP 36.4–37.1; O2SAT 90–99
[2017-02-04 06:02] LABS: HEMATOCRIT 24.1 % (37-47); MEAN CORPUSCULAR HGB CONC 35.7 g/dl (32-36); RED BLOOD COUNT 2.77 M/uL (4.2-5.4); WHITE BLOOD COUNT 3.85 K/uL (4.8-10.8)
[2017-02-04 06:05] LABS: MEAN PLATELET VOLUME 11.3 fL (7.4-10.4); PLATELET COUNT 41 K/uL (130-400)
[2017-02-04 06:22] LABS: BASO % 0.5 %; BASO ABS # 0.02 K/uL (0-0.2); COMPLETE YES; ECHINOCYTES 1+; EOS % 0.5 %; IG% 0.3 %; LARGE PLATELETS 2+; LYMPH % 26.5 %; LYMPH ABS # 1.02 K/uL (1.2-3.4); MONO % 10.4 %; NEUT % 61.8 %
[2017-02-04 06:27] LABS: INR 1.4 (0.9-1.1); PARTIAL THROMBOPLASTIN RATIO 1.5; PROTHROMBIN TIME (PATIENT) 15.2 SECONDS (9.0-12.0)
[2017-02-04 06:37] LABS: BUN/CREATININE RATIO 15.3 (10-20); CALCIUM 7.9 mg/dl (8.5-10.1); CREATININE 0.95 mg/dl (0.60-1.20); POTASSIUM 4.3 mmol/L (3.5-5.1)
[2017-02-04] MEDS: TRAMADOL HCL 50 MG TAB PO PRN ×2 (07:42→20:27)
[2017-02-04] MEDS: LACTULOSE SYRUP 30 GM/45 ML UDP PO SCH ×3 (07:42→20:17)
[2017-02-04] MEDS: ESCITALOPRAM OXALATE 10 MG TAB PO SCH (07:43)
[2017-02-04] MEDS: LIDODERM (LIDOCAINE) PATCH 5% TD SCH (07:43)
[2017-02-04] MEDS: PANTOprazole INJ 40 MG in SYRINGE 0 ML IV SCH ×2 (09:54→20:28)
[2017-02-04] MEDS ORDERED: ALBUMIN HUMAN 25% 12.5 GM/50 ML VIAL IV ONE (11:00)
--- NOTE | 2017-02-04 11:51 | Gastrointestinal Consultation ---
Gastrointestinal Consultation Date of Consultation: Feb 04, 2017 Attending Physician: Denis Keys Consulting Physician: Kalie Chou Reason for Consultation: ETOH cirrhosis History of Present Illness Patient is a 52 year old female w PMHx of ETOH cirrhosis complicated by hx of hepatic encephalopathy, bleeding esophageal varices; depression, hypotension, Fe deficiency anemia, who presented w c/o ongoing LUQ abd pain. She was taken to ED by her dght and was collapsed on arrival but no s/s of seizures. Upon eval , her Na was 114, currently improved to 120. Other labs notable for low plt of 40s, INR 1/4, BUN/Cr normal 15/0.98. LFTs elevated Tbili 3.3, AST 41, ALT 13, AP 205, NH3 76. CT head, CXR unremarkable. CT abd/pelvis showed cirrhotic liver , ascites, bilateral rib fx. Pt's cirrhosis is usually managed by Dr. Funk, last office visit was 2015. Hx of esophageal varices, last EGD 01/16/16, grade II varices, banded. Last [id number] 12/15/09 showed diverticulosis otherwise normal exam. She continues to drink ETOH, admits last intake during her birthday 4 beers but admitted to another provider drinks daily. She noticed abd distension x2 weeks. Denies any fever, chills, + SOB but related to abd distension, denies any CP. c/ o LUQ, L rib area tenderness. Denies any bowel habit changes including any dark , tarry stools. Past Medical/Surgical History Medical Problems: (1) Abdominal pain Status: Acute (2) Abdominal pain, left upper quadrant Status: Acute (3) Diarrhea Status: Acute (4) GI bleed Status: Acute (5) Hyponatremia Status: Acute (6) Hyponatremia Status: Acute (7) Liver failure Status: Acute (8) Syncope Status: Acute Past Medical History: See aboce Past Surgical History: C section Family History Patient reports no known family medical history. Social History Smoking Status: Current Every Day Smoker Alcohol Use: heavy Drug Use: none, other Marital Status: Housing Status: lives with family Occupation Status: employed, other Allergies Coded Allergies: No Known Allergies (Verified , 01/16/16) Current Medications Home Meds and Scripts Medications Dose Route/Sig Max Daily Dose Days Date Category Ultram (Tramadol HCl) 50 Mg Tab 100 Mg PO NEEDED PRN 02/02/17 Reported Lexapro (Escitalopram Oxalate) 10 Mg Tab 10 Mg PO QAM 11/19/12 Reported Protonix (Pantoprazole Sodium) 40 Mg Tab 40 Mg PO BID 11/19/12 Reported Ativan (Lorazepam) 0.5 Mg Tab 0.5 Mg PO BID PRN 02/16/12 Reported Aldactone (Spironolactone) 100 Mg Tab 200 Mg PO QAM 02/16/12 Reported Lasix (Furosemide) 40 Mg Tab 80 Mg PO BID 02/16/12 Reported Review of Systems Constitutional: + weakness, No fever, No chills Respiratory: + shortness of breath, No cough Cardiac: No chest pain, No edema Abdomen: + see HPI, + pain, No nausea, No vomiting, No diarrhea, No constipation, No GI bleeding Skin: No rash, No itch, No jaundice Physical Exam Date Time Temp Pulse Resp B/P (MAP) Pulse Ox O2 Delivery O2 Flow Rate FiO2 02/04/17 08:04 36.8 72 18 90/44 (59) 99 02/04/17 08:00 Room Air 02/04/17 04:00 Room Air 02/04/17 03:33 36.7 67 16 93/57 (69) 93 Room Air 02/03/17 23:59 93 Room Air 02/03/17 23:42 36.4 66 16 92/52 (65) 93 Room Air 02/03/17 20:00 93 Room Air 02/03/17 19:37 36.7 61 19 80/39 (53) 93 Room Air 78/42 (54) 02/03/17 16:00 95 Room Air 02/03/17 15:15 36.7 59 20 82/49 (60) 95 Room Air 84/50 (61) 02/03/17 12:05 Room Air General Appearance: WD/WN, no apparent distress Eyes: EOMI, + pertinent finding (mild icteric sclera) Neck: supple, no JVD, trachea midline Respiratory/Chest: no respiratory distress, no accessory muscle use, + decreased breath sounds Cardiovascular: regular rate, rhythm, no gallop, no murmur Abdomen: normal bowel sounds, non tender, + distended Extremities: normal inspection, no pedal edema, no calf tenderness Neurologic/Psych: alert, normal mood/affect, oriented x 3, + pertinent finding (mild asterixis noted) Skin: + jaundice, + pertinent finding (several ecchyomosis on neck, arms. + spider angiomatas on chest, arms. ) Laboratory Results Last 24 Hours Test 02/03/17 12:46 02/03/17 14:17 02/03/17 15:26 02/03/17 19:33 Sodium Level 118 mmol/L 117 mmol/L 117 mmol/L Potassium Level 3.8 mmol/L 3.8 mmol/L 4.0 mmol/L Chloride Level 85 mmol/L 85 mmol/L 85 mmol/L Carbon Dioxide Level 24 mmol/L 25 mmol/L 25 mmol/L Anion Gap 9.0 mmol/L 7.0 mmol/L 6.0 mmol/L Blood Urea Nitrogen 12 mg/dl 14 mg/dl 15 mg/dl Creatinine 1.10 mg/dl 1.30 mg/dl 1.20 mg/dl Est Creatinine Clear Calc Drug Dose 63.6 ml/min 53.8 ml/min 58.3 ml/min Estimated GFR () 65.9 53.9 59.3 Estimated GFR (Non- 56.9 46.5 51.2 BUN/Creatinine Ratio 11.3 11.1 12.3 Random Glucose 105 mg/dl 104 mg/dl 94 mg/dl Calcium Level 7.6 mg/dl 7.7 mg/dl 7.8 mg/dl Urine Osmolality 258 mOms/kg Test 02/03/17 21:36 02/04/17 05:49 Activated Partial Thromboplast Time 40.3 SECONDS 39.2 SECONDS Partial Thromboplastin Ratio 1.5 1.5 White Blood Count 3.85 K/uL Red Blood Count 2.77 M/uL Hemoglobin 8.6 g/dL Hematocrit 24.1 % Mean Corpuscular Volume 87.0 fL Mean Corpuscular Hemoglobin 31.0 pg Mean Corpuscular Hemoglobin Concent 35.7 g/dl Platelet Count 41 K/uL Mean Platelet Volume 11.3 fL Neutrophils (%) (Auto) 61.8 % Lymphocytes (%) (Auto) 26.5 % Monocytes (%) (Auto) 10.4 % Eosinophils (%) (Auto) 0.5 % Basophils (%) (Auto) 0.5 % Neutrophils # (Auto) 2.38 K/uL Lymphocytes # (Auto) 1.02 K/uL Monocytes # (Auto) 0.40 K/uL Eosinophils # (Auto) 0.02 K/uL Basophils # (Auto) 0.02 K/uL RDW Standard Deviation 54.7 fL RDW Coefficient of Variation 17.2 % Immature Granulocyte % (Auto) 0.3 % Immature Granulocyte # (Auto) 0.01 K/uL Large Platelets 2+ Echinocytes 1+ Prothrombin Time 15.2 SECONDS Prothromb Time International Ratio 1.4 Sodium Level 120 mmol/L Potassium Level 4.3 mmol/L Chloride Level 88 mmol/L Carbon Dioxide Level 24 mmol/L Anion Gap 8.0 mmol/L Blood Urea Nitrogen 15 mg/dl Creatinine 0.95 mg/dl Est Creatinine Clear Calc Drug Dose 74.6 ml/min Estimated GFR () 78.7 Estimated GFR (Non- 67.9 BUN/Creatinine Ratio 15.3 Random Glucose 70 mg/dl Calcium Level 7.9 mg/dl Total Bilirubin 3.3 mg/dl Direct Bilirubin 2.0 mg/dl Aspartate Amino Transf (AST/SGOT) 41 U/L Alanine Aminotransferase (ALT/SGPT) 17 U/L Alkaline Phosphatase 205 U/L Ammonia 76.0 umol/L Total Protein 5.3 gm/dl Albumin 2.6 gm/dl Impression Patient is a 52 year old female admitted for hyponatremia, LUQ abd pain, ? syncopal episode. GI following for ETOH cirrhosis. MELD 15 Plan - Lactulose 15g TID (titrate to goal 3-5 BMs daily) - Continue Protonix 40mg BID - Given low BP, hyponatremia, will hold off restart of diuretics for now (home doses Lasix 80mg BID, Spironolactone 100mg BID). - U/S paracentesis w fluid analysis up to 5L removal ok. Albumin 25% 25g before and 25g after paracentesis. - 2g Na diet - Discussed w pt importance of quitting ETOH intake, advised to go through AA again. - Watch for DTs. - Monitor electrolytes and renal function. Late entry: Patient was seen and examined with Jeanie Guy on 02/04 . Her note reflects our findings and plan.
[2017-02-04] MEDS ORDERED: GABAPENTIN 600 MG TAB PO SCH (12:45)
[2017-02-04] MEDS ORDERED: ALBUMIN HUMAN 25% 12.5 GM/50 ML VIAL IV SCH ×2 (13:15)
[2017-02-04] MEDS ORDERED: GABAPENTIN 1200MG LOADING DOSE PO SCH (14:00)
--- NOTE | 2017-02-04 16:24 | Nephrology Progress Note ---
Nephrology Progress Note Date of Service: Feb 04, 2017. Subjective 52 yo female with hyponatremia in the setting of cirrhosis. sodium levels have slowly improved. pt mentating well. no complaints other than left upper abdominal pain. just came back from a paracentesis today. Objective Date Time Temp Pulse Resp B/P (MAP) Pulse Ox O2 Delivery O2 Flow Rate FiO2 02/04/17 13:56 36.7 74 20 93/54 (67) 93 Room Air 02/04/17 13:39 37.0 71 20 90/44 (59) 93 02/04/17 13:18 36.8 70 20 88/46 (60) 93 Room Air 02/04/17 12:00 Room Air 02/04/17 08:04 36.8 72 18 90/44 (59) 99 02/04/17 08:00 Room Air 02/04/17 04:00 Room Air 02/04/17 03:33 36.7 67 16 93/57 (69) 93 Room Air 02/03/17 23:59 93 Room Air 02/03/17 23:42 36.4 66 16 92/52 (65) 93 Room Air 02/03/17 20:00 93 Room Air 02/03/17 19:37 36.7 61 19 80/39 (53) 93 Room Air 78/42 (54) Physical Exam: General-aaox3 Eyes-no scleral icterus ENT-mmm Neck-supple Lungs-cta Heart-rrr Abdomen-bs+/mildly distended/mild tenderness left upper abdominal Extremities-no c/c/e Neuro-nonfocal Current Inpatient Medications Medications (Trade) Dose Ordered Sig/Betty Route Start Time Stop Time Status Last Admin Dose Admin Ondansetron HCl (Zofran Inj) 4 mg Q6H PRN IV 02/02/17 23:30 03/04/17 23:29 Escitalopram Oxalate (Lexapro Tab) 10 mg QAM PO 02/03/17 09:00 03/05/17 08:59 02/04/17 07:43 10 MG Lidocaine (Lidoderm Patch 5%) 1 patch QAM TD 02/04/17 09:00 03/06/17 08:59 02/04/17 07:43 1 PATCH Miscellaneous (Remove Lidoderm Patch) 1 ea DAILY@21 N/A 02/03/17 21:00 03/05/17 20:59 02/03/17 21:53 1 EA Thiamine HCl (Vitamin B-1 Tab) 100 mg Q24H PO 02/03/17 21:00 03/05/17 20:59 02/03/17 21:53 100 MG Lorazepam (Ativan Tab) 1 mg ONE PRN PO 02/03/17 20:45 03/04/17 20:44 Pantoprazole Sodium 40 mg/ Syringe 10 ml @ 5 mls/min DAILY@ IV 02/04/17 09:00 03/06/17 08:59 02/04/17 09:54 5 MLS/MIN Lactulose (Chronulac Syrup) 15 gm TID PO 02/04/17 09:00 03/06/17 08:59 02/04/17 07:42 15 GM Tramadol HCl (Ultram Tab) 50 mg Q6H PRN PO 02/03/17 23:45 03/05/17 23:44 02/04/17 07:42 50 MG Gabapentin (Neurontin Tab) 600 mg Q6H PO 02/04/17 20:00 02/05/17 02:01 Gabapentin (Neurontin Tab) 600 mg Q8H PO 02/05/17 14:00 02/06/17 06:01 Gabapentin (Neurontin Tab) 600 mg Q12H PO 02/06/17 18:00 02/07/17 06:01 Gabapentin (Neurontin Tab) 600 mg Q24H PO 02/08/17 06:00 02/08/17 06:01 Last 24 Hours Test 02/03/17 19:33 02/03/17 21:36 02/04/17 05:49 02/04/17 16:10 Sodium Level 117 mmol/L 120 mmol/L Potassium Level 4.0 mmol/L 4.3 mmol/L Chloride Level 85 mmol/L 88 mmol/L Carbon Dioxide Level 25 mmol/L 24 mmol/L Anion Gap 6.0 mmol/L 8.0 mmol/L Blood Urea Nitrogen 15 mg/dl 15 mg/dl Creatinine 1.20 mg/dl 0.95 mg/dl Est Creatinine Clear Calc Drug Dose 58.3 ml/min 74.6 ml/min Estimated GFR () 59.3 78.7 Estimated GFR (Non- 51.2 67.9 BUN/Creatinine Ratio 12.3 15.3 Random Glucose 94 mg/dl 70 mg/dl Calcium Level 7.8 mg/dl 7.9 mg/dl Activated Partial Thromboplast Time 40.3 SECONDS 39.2 SECONDS Partial Thromboplastin Ratio 1.5 1.5 White Blood Count 3.85 K/uL Red Blood Count 2.77 M/uL Hemoglobin 8.6 g/dL Hematocrit 24.1 % Mean Corpuscular Volume 87.0 fL Mean Corpuscular Hemoglobin 31.0 pg Mean Corpuscular Hemoglobin Concent 35.7 g/dl Platelet Count 41 K/uL Mean Platelet Volume 11.3 fL Neutrophils (%) (Auto) 61.8 % Lymphocytes (%) (Auto) 26.5 % Monocytes (%) (Auto) 10.4 % Eosinophils (%) (Auto) 0.5 % Basophils (%) (Auto) 0.5 % Neutrophils # (Auto) 2.38 K/uL Lymphocytes # (Auto) 1.02 K/uL Monocytes # (Auto) 0.40 K/uL Eosinophils # (Auto) 0.02 K/uL Basophils # (Auto) 0.02 K/uL RDW Standard Deviation 54.7 fL RDW Coefficient of Variation 17.2 % Immature Granulocyte % (Auto) 0.3 % Immature Granulocyte # (Auto) 0.01 K/uL Large Platelets 2+ Echinocytes 1+ Prothrombin Time 15.2 SECONDS Prothromb Time International Ratio 1.4 Total Bilirubin 3.3 mg/dl Direct Bilirubin 2.0 mg/dl Aspartate Amino Transf (AST/SGOT) 41 U/L Alanine Aminotransferase (ALT/SGPT) 17 U/L Alkaline Phosphatase 205 U/L Ammonia 76.0 umol/L Total Protein 5.3 gm/dl Albumin 2.6 gm/dl Assessment & Plan marry-creatinine of 1.3 and improved to 0.9. hyponatremia-sodium levels have slowly improved. rechecking sodium again today. off fluids and off lasix now. urine osm under 300 and will recheck again tomorrow. if continues to be under 300, should improve with normal saline if not improving through fluid restriction alone.
--- NOTE | 2017-02-04 16:43 | DIAGNOSTIC IMAGING REPORT ---
ULTRASOUND-GUIDED DIAGNOSTIC AND THERAPEUTIC PARACENTESIS: HISTORY: Generalized abdominal pain. Cirrhosis. Ascites. Procedure: The procedure and its risks, benefits and alternatives were discussed with the patient and written informed consent was obtained. Preliminary ultrasound of the abdomen was performed to determine a safe needle entry site. The right upper quadrant was prepped and draped in the usual sterile fashion. 1% Lidocaine was used for local anesthesia. A paracentesis needle-sheath was inserted into the peritoneal space using ultrasound guidance. The needle was removed and the sheath was connected to tubing and a vacuum suction device. A total of 3.3 liters of yellow ascites was aspirated. The sheath was removed and a sterile dressing applied. The patient tolerated the procedure well and there were no immediate complications. IMPRESSION: Ultrasound-guided therapeutic paracentesis with aspiration of 3.3 liters of ascites. 1 L of fluid was sent to the laboratory for further analysis. Electronically signed by: Michael De Leon M.D. 02/04/2017 4:41 PM Dictated Date/Time: 02/04/2017 4:40 PM
[2017-02-04 16:56] LABS: BUN/CREATININE RATIO 15.3 (10-20); CALCIUM 8.4 mg/dl (8.5-10.1); CREATININE 0.95 mg/dl (0.60-1.20); POTASSIUM 4.6 mmol/L (3.5-5.1)
--- NOTE | 2017-02-04 19:20 | Progress Note ---
Medicine Progress Note Date & Time of Visit: Feb 04, 2017 at 19:15. Subjective seen resting in bed, appears brighter states she feels improved compared to yesterday although still has LUQ pain, tenderness denies tremors, anxiety, sweats denies dizziness, dyspnea, chest pain no other symptoms Objective Last 8 Hrs Date Time Temp Pulse Resp B/P (MAP) Pulse Ox O2 Delivery O2 Flow Rate FiO2 02/04/17 18:48 36.8 82/43 (56) 86/41 (56) 02/04/17 18:30 67 20 75/43 (54) 91 Room Air 02/04/17 18:10 36.7 66 18 84/45 93 02/04/17 17:53 36.9 64 18 85/43 93 02/04/17 17:07 36.8 60 18 96/58 (71) 94 Room Air 02/04/17 16:43 36.6 66 22 89/45 (60) 96 Room Air 02/04/17 16:05 Room Air 02/04/17 13:56 36.7 74 20 93/54 (67) 93 Room Air 02/04/17 13:39 37.0 71 20 90/44 (59) 93 02/04/17 13:18 36.8 70 20 88/46 (60) 93 Room Air 02/04/17 12:00 Room Air Physical Exam: General- oriented x 3, not in distress, speaks in sentences with no effort Eyes- anicteric Neck- supple, no JVD Lungs- clear to auscultation bilaterally, no n rales/wheeze (+) spider angiomata on the chest (+) tenderness on the left subcostal region Heart- regular rhythm; no murmur, normal rate Abdomen- normal bowel sounds, soft, nontender, mildly distended Extremities- no pretibial edema, no calf tenderness (+) ecchymoses on right upper arm Neuro- alert, oriented x 3; no gross focal deficits Skin- warm & dry Laboratory Results: Last 24 Hours Test 02/03/17 19:33 02/03/17 21:36 02/04/17 00:00 02/04/17 05:49 Sodium Level 117 mmol/L 120 mmol/L Potassium Level 4.0 mmol/L 4.3 mmol/L Chloride Level 85 mmol/L 88 mmol/L Carbon Dioxide Level 25 mmol/L 24 mmol/L Anion Gap 6.0 mmol/L 8.0 mmol/L Blood Urea Nitrogen 15 mg/dl 15 mg/dl Creatinine 1.20 mg/dl 0.95 mg/dl Est Creatinine Clear Calc Drug Dose 58.3 ml/min 74.6 ml/min Estimated GFR () 59.3 78.7 Estimated GFR (Non- 51.2 67.9 BUN/Creatinine Ratio 12.3 15.3 Random Glucose 94 mg/dl 70 mg/dl Calcium Level 7.8 mg/dl 7.9 mg/dl Activated Partial Thromboplast Time 40.3 SECONDS 39.2 SECONDS Partial Thromboplastin Ratio 1.5 1.5 Peritoneal Fluid Total Protein 1.2 g/dl Peritoneal Fluid Albumin 0.6 g/dl White Blood Count 3.85 K/uL Red Blood Count 2.77 M/uL Hemoglobin 8.6 g/dL Hematocrit 24.1 % Mean Corpuscular Volume 87.0 fL Mean Corpuscular Hemoglobin 31.0 pg Mean Corpuscular Hemoglobin Concent 35.7 g/dl Platelet Count 41 K/uL Mean Platelet Volume 11.3 fL Neutrophils (%) (Auto) 61.8 % Lymphocytes (%) (Auto) 26.5 % Monocytes (%) (Auto) 10.4 % Eosinophils (%) (Auto) 0.5 % Basophils (%) (Auto) 0.5 % Neutrophils # (Auto) 2.38 K/uL Lymphocytes # (Auto) 1.02 K/uL Monocytes # (Auto) 0.40 K/uL Eosinophils # (Auto) 0.02 K/uL Basophils # (Auto) 0.02 K/uL RDW Standard Deviation 54.7 fL RDW Coefficient of Variation 17.2 % Immature Granulocyte % (Auto) 0.3 % Immature Granulocyte # (Auto) 0.01 K/uL Large Platelets 2+ Echinocytes 1+ Prothrombin Time 15.2 SECONDS Prothromb Time International Ratio 1.4 Total Bilirubin 3.3 mg/dl Direct Bilirubin 2.0 mg/dl Aspartate Amino Transf (AST/SGOT) 41 U/L Alanine Aminotransferase (ALT/SGPT) 17 U/L Alkaline Phosphatase 205 U/L Ammonia 76.0 umol/L Total Protein 5.3 gm/dl Albumin 2.6 gm/dl Test 02/04/17 16:19 Sodium Level 121 mmol/L Potassium Level 4.6 mmol/L Chloride Level 89 mmol/L Carbon Dioxide Level 26 mmol/L Anion Gap 6.0 mmol/L Blood Urea Nitrogen 15 mg/dl Creatinine 0.95 mg/dl Est Creatinine Clear Calc Drug Dose 74.6 ml/min Estimated GFR () 78.7 Estimated GFR (Non- 67.9 BUN/Creatinine Ratio 15.3 Random Glucose 82 mg/dl Calcium Level 8.4 mg/dl Date/Time Source Procedure Growth Status 02/04/17 00:00 Ascities Fluid Gram Stain Pending Received 02/04/17 00:00 Ascities Fluid Bacterial Culture Pending Received Assessment & Plan Hyponatremia secondary to cirrhosis - Na improving - Nephro consulted given Albumin, Lasix, IV fluids -- monitor Syncope and collapse, likely secondary to hyponatremia, hypotension -- continue to correct Na monitor BP Left upper Quadrant pain,likely secondary to gastritis/stretching of the splenic capsule vs. rib fracture -- for Paracentesis today -- Tramadol PRN Lidoderm patch Cirrhosis of liver secondary to alcohol abuse. Alcoholic Hepatitis? - last drink was last Saturday as per patient Bilirubin increasing compared to last admission platelets also decreasing, no signs of bleeding at this time Ct abdomen:IMPRESSION: 1. Cirrhosis with manifestations of portal hypertension including moderate ascites, mild splenomegaly and extensive varices formation. Suboptimal evaluation of the abdomen and pelvis given the lack of IV contrast. 2. Cholelithiasis. 3. Apparent gastric wall thickening. This is likely due to underdistention although gastritis could have this appearance. 4. No bowel obstruction. Normal appendix. - Ammonia elevated no signs of encephalopathy started Lactulose monitor - Discriminant Function score: 17 will hold off steroids consulted GI - Thrombocytopenia Plt trending down no signs of bleeding 1 unit plt ordered after discussion with Radiologist as patient was having paracentesis monitor Plt - Esophageal varices no signs of bleeding Protonix IV BID - INR seems to be at baseline monitor 5. Deep venous thrombosis prophylaxis. -- heparin/lovenox contraindicated due to thrombocytopenia 6. Code status -- full code. Dispo pending usually lives at home will need PT/OT Discharge planning: uncertain (needs PT/OT) Current Inpatient Medications: Current Inpatient Medications Medications (Trade) Dose Ordered Sig/Betty Route Start Time Stop Time Status Last Admin Dose Admin Ondansetron HCl (Zofran Inj) 4 mg Q6H PRN IV 02/02/17 23:30 03/04/17 23:29 Escitalopram Oxalate (Lexapro Tab) 10 mg QAM PO 02/03/17 09:00 03/05/17 08:59 02/04/17 07:43 10 MG Lidocaine (Lidoderm Patch 5%) 1 patch QAM TD 02/04/17 09:00 03/06/17 08:59 02/04/17 07:43 1 PATCH Miscellaneous (Remove Lidoderm Patch) 1 ea DAILY@21 N/A 02/03/17 21:00 03/05/17 20:59 02/03/17 21:53 1 EA Thiamine HCl (Vitamin B-1 Tab) 100 mg Q24H PO 02/03/17 21:00 03/05/17 20:59 02/03/17 21:53 100 MG Lorazepam (Ativan Tab) 1 mg ONE PRN PO 02/03/17 20:45 03/04/17 20:44 Pantoprazole Sodium 40 mg/ Syringe 10 ml @ 5 mls/min DAILY@ IV 02/04/17 09:00 03/06/17 08:59 02/04/17 09:54 5 MLS/MIN Lactulose (Chronulac Syrup) 15 gm TID PO 02/04/17 09:00 03/06/17 08:59 02/04/17 16:47 15 GM Tramadol HCl (Ultram Tab) 50 mg Q6H PRN PO 02/03/17 23:45 03/05/17 23:44 02/04/17 07:42 50 MG Gabapentin (Neurontin Tab) 600 mg Q6H PO 02/04/17 20:00 02/05/17 02:01 Gabapentin (Neurontin Tab) 600 mg Q8H PO 02/05/17 14:00 02/06/17 06:01 Gabapentin (Neurontin Tab) 600 mg Q12H PO 02/06/17 18:00 02/07/17 06:01 Gabapentin (Neurontin Tab) 600 mg Q24H PO 02/08/17 06:00 02/08/17 06:01
[2017-02-04] MEDS: GABAPENTIN 600MG Q6H DOSE PO SCH (20:27)
[2017-02-04] MEDS: THIAMINE HCL 100 MG TAB PO SCH (20:28)
[2017-02-04 20:32] LABS: PERIT FL WBC 160 /uL (0-300); PERITONEAL FLUID RBC < 3000 /uL
[2017-02-05] MEDS: GABAPENTIN 600MG Q6H DOSE PO SCH (03:22)
[2017-02-05] MEDS: TRAMADOL HCL 50 MG TAB PO PRN ×2 (03:23→20:47)
[2017-02-05 04:00] VITALS: BP 94/57; PULSE 77; TEMP 37.4; O2SAT 92
[2017-02-05 06:33] LABS: HEMATOCRIT 24.5 % (37-47); MEAN CELL VOLUME 88.8 fL (80-100); MEAN CORPUSCULAR HEMOGLOBIN 30.4 pg (25-34); MEAN CORPUSCULAR HGB CONC 34.3 g/dl (32-36); RED BLOOD COUNT 2.76 M/uL (4.2-5.4); WHITE BLOOD COUNT 4.65 K/uL (4.8-10.8)
[2017-02-05 06:40] LABS: MEAN PLATELET VOLUME 10.9 fL (7.4-10.4); PLATELET COUNT 48 K/uL (130-400)
[2017-02-05 06:47] LABS: INR 1.5 (0.9-1.1); PARTIAL THROMBOPLASTIN RATIO 1.5; PROTHROMBIN TIME (PATIENT) 16.1 SECONDS (9.0-12.0)
[2017-02-05 07:08] LABS: BUN/CREATININE RATIO 17.8 (10-20); CALCIUM 8.2 mg/dl (8.5-10.1); CREATININE 0.7 mg/dl (0.60-1.20); POTASSIUM 4.3 mmol/L (3.5-5.1)
[2017-02-05 07:19] VITALS: BP 97/64; PULSE 64; TEMP 36.8; O2SAT 97
[2017-02-05 07:30] LABS: BASO % 0.2 %; BASO ABS # 0.01 K/uL (0-0.2); COMPLETE YES; ECHINOCYTES 1+; EOS % 0.2 %; GIANT PLATELETS 3+; IG% 0.2 %; LYMPH % 18.9 %; LYMPH ABS # 0.88 K/uL (1.2-3.4); MONO % 12.5 %
--- NOTE | 2017-02-05 07:35 | Nephrology Progress Note ---
Nephrology Progress Note Date of Service: Feb 05, 2017. Subjective 52 yo female with hyponatremia in the setting of cirrhosis. sodium levels have slowly improved. pt happy with the swelling in legs improved. continues to have left upper quadrant pain but overall much more comfortable. Objective Date Time Temp Pulse Resp B/P (MAP) Pulse Ox O2 Delivery O2 Flow Rate FiO2 02/05/17 07:19 36.8 64 18 97/64 (75) 97 2.0 02/05/17 04:00 Nasal Cannula 2.0 02/05/17 04:00 37.4 77 20 94/57 (69) 92 Nasal Cannula 2.0 02/05/17 00:00 Room Air 02/04/17 23:51 37.1 75 18 96/46 (63) 90 Room Air 02/04/17 20:00 Room Air 02/04/17 19:51 88/58 (68) 02/04/17 19:48 36.4 65 20 91/56 90 02/04/17 18:48 36.8 70 20 82/43 (56) 86/41 (56) 02/04/17 18:48 36.6 70 18 82/43 02/04/17 18:30 67 20 75/43 (54) 91 Room Air 02/04/17 18:10 36.7 66 18 84/45 93 02/04/17 17:53 36.9 64 18 85/43 93 02/04/17 17:07 36.8 60 18 96/58 (71) 94 Room Air 02/04/17 16:43 36.6 66 22 89/45 (60) 96 Room Air 02/04/17 16:05 Room Air 02/04/17 13:56 36.7 74 20 93/54 (67) 93 Room Air 02/04/17 13:39 37.0 71 20 90/44 (59) 93 02/04/17 13:18 36.8 70 20 88/46 (60) 93 Room Air 02/04/17 12:00 Room Air 02/04/17 08:04 36.8 72 18 90/44 (59) 99 02/04/17 08:00 Room Air Physical Exam: General-aaox3 Eyes-no scleral icterus ENT-mmm Neck-supple Lungs-clear Heart-regular Abdomen-bs+/soft/+mild distention Extremities-no c/c-mild edema in legs Neuro-nonfocal Current Inpatient Medications Medications (Trade) Dose Ordered Sig/Betty Route Start Time Stop Time Status Last Admin Dose Admin Ondansetron HCl (Zofran Inj) 4 mg Q6H PRN IV 02/02/17 23:30 03/04/17 23:29 Escitalopram Oxalate (Lexapro Tab) 10 mg QAM PO 02/03/17 09:00 03/05/17 08:59 02/04/17 07:43 10 MG Lidocaine (Lidoderm Patch 5%) 1 patch QAM TD 02/04/17 09:00 03/06/17 08:59 02/04/17 07:43 1 PATCH Miscellaneous (Remove Lidoderm Patch) 1 ea DAILY@21 N/A 02/03/17 21:00 03/05/17 20:59 02/04/17 20:28 1 EA Thiamine HCl (Vitamin B-1 Tab) 100 mg Q24H PO 02/03/17 21:00 03/05/17 20:59 02/04/17 20:28 100 MG Lorazepam (Ativan Tab) 1 mg ONE PRN PO 02/03/17 20:45 03/04/17 20:44 Pantoprazole Sodium 40 mg/ Syringe 10 ml @ 5 mls/min DAILY@ IV 02/04/17 09:00 03/06/17 08:59 02/04/17 20:28 5 MLS/MIN Lactulose (Chronulac Syrup) 15 gm TID PO 02/04/17 09:00 03/06/17 08:59 02/04/17 20:17 15 GM Tramadol HCl (Ultram Tab) 50 mg Q6H PRN PO 02/03/17 23:45 03/05/17 23:44 02/05/17 03:23 50 MG Gabapentin (Neurontin Tab) 600 mg Q8H PO 02/05/17 14:00 02/06/17 06:01 Gabapentin (Neurontin Tab) 600 mg Q12H PO 02/06/17 18:00 02/07/17 06:01 Gabapentin (Neurontin Tab) 600 mg Q24H PO 02/08/17 06:00 02/08/17 06:01 Last 24 Hours Test 02/04/17 16:19 02/05/17 03:40 02/05/17 06:21 Sodium Level 121 mmol/L 122 mmol/L Potassium Level 4.6 mmol/L 4.3 mmol/L Chloride Level 89 mmol/L 90 mmol/L Carbon Dioxide Level 26 mmol/L 25 mmol/L Anion Gap 6.0 mmol/L 7.0 mmol/L Blood Urea Nitrogen 15 mg/dl 12 mg/dl Creatinine 0.95 mg/dl 0.70 mg/dl Est Creatinine Clear Calc Drug Dose 74.6 ml/min 101.0 ml/min Estimated GFR () 78.7 113.8 Estimated GFR (Non- 67.9 98.2 BUN/Creatinine Ratio 15.3 17.8 Random Glucose 82 mg/dl 66 mg/dl Calcium Level 8.4 mg/dl 8.2 mg/dl Urine Osmolality 256 mOms/kg White Blood Count 4.65 K/uL Red Blood Count 2.76 M/uL Hemoglobin 8.4 g/dL Hematocrit 24.5 % Mean Corpuscular Volume 88.8 fL Mean Corpuscular Hemoglobin 30.4 pg Mean Corpuscular Hemoglobin Concent 34.3 g/dl Platelet Count 48 K/uL Mean Platelet Volume 10.9 fL Neutrophils (%) (Auto) 68.0 % Lymphocytes (%) (Auto) 18.9 % Monocytes (%) (Auto) 12.5 % Eosinophils (%) (Auto) 0.2 % Basophils (%) (Auto) 0.2 % Neutrophils # (Auto) 3.16 K/uL Lymphocytes # (Auto) 0.88 K/uL Monocytes # (Auto) 0.58 K/uL Eosinophils # (Auto) 0.01 K/uL Basophils # (Auto) 0.01 K/uL RDW Standard Deviation 58.2 fL RDW Coefficient of Variation 18.0 % Immature Granulocyte % (Auto) 0.2 % Immature Granulocyte # (Auto) 0.01 K/uL Giant Platelets 3+ Echinocytes 1+ Prothrombin Time 16.1 SECONDS Prothromb Time International Ratio 1.5 Activated Partial Thromboplast Time 38.8 SECONDS Partial Thromboplastin Ratio 1.5 Total Bilirubin 3.6 mg/dl Direct Bilirubin 2.0 mg/dl Aspartate Amino Transf (AST/SGOT) 40 U/L Alanine Aminotransferase (ALT/SGPT) 18 U/L Alkaline Phosphatase 188 U/L Ammonia 55.0 umol/L Total Protein 5.4 gm/dl Albumin 2.8 gm/dl Assessment & Plan marry-creatinine of 1.3 and improved to 0.7. hyponatremia-sodium levels have slowly improved. urine osm under 300. on fluid restriction. 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 recheck bmp again this afternoon.
[2017-02-05] MEDS: ESCITALOPRAM OXALATE 10 MG TAB PO SCH (07:48)
[2017-02-05] MEDS: LACTULOSE SYRUP 30 GM/45 ML UDP PO SCH ×2 (07:49→20:42)
[2017-02-05] MEDS: LIDODERM (LIDOCAINE) PATCH 5% TD SCH (07:49)
[2017-02-05] MEDS: PANTOprazole INJ 40 MG in SYRINGE 0 ML IV SCH ×2 (09:39→20:41)
[2017-02-05] MEDS: FUROSEMIDE 40 MG TAB PO SCH (09:40)
--- NOTE | 2017-02-05 10:01 | Gastroenterology Progress Note ---
Progress Note Date of Service: Feb 05, 2017 Subjective Pt evaluation today including: conversation w/ patient, physical exam, chart review, lab review, review of studies, review of inpatient medication list Pt feels abd distension is much improved. Had 3L ascites removal via paracentesis. No signs of SBP on cell ct. Still c/o LUQ, L lower rib tenderness but only when turning on L side. Denies any BMs since admission. Review of Systems Constitutional: No fever, No chills Respiratory: No cough, No shortness of breath Cardiac: No chest pain Abdomen: No pain, No nausea, No vomiting Skin: + jaundice Medications Current Inpatient Medications Medications (Trade) Dose Ordered Sig/Betty Route Start Time Stop Time Status Last Admin Dose Admin Ondansetron HCl (Zofran Inj) 4 mg Q6H PRN IV 02/02/17 23:30 03/04/17 23:29 Escitalopram Oxalate (Lexapro Tab) 10 mg QAM PO 02/03/17 09:00 03/05/17 08:59 02/05/17 07:48 10 MG Lidocaine (Lidoderm Patch 5%) 1 patch QAM TD 02/04/17 09:00 03/06/17 08:59 02/05/17 07:49 1 PATCH Miscellaneous (Remove Lidoderm Patch) 1 ea DAILY@21 N/A 02/03/17 21:00 03/05/17 20:59 02/04/17 20:28 1 EA Thiamine HCl (Vitamin B-1 Tab) 100 mg Q24H PO 02/03/17 21:00 03/05/17 20:59 02/04/17 20:28 100 MG Lorazepam (Ativan Tab) 1 mg ONE PRN PO 02/03/17 20:45 03/04/17 20:44 Pantoprazole Sodium 40 mg/ Syringe 10 ml @ 5 mls/min DAILY@09,21 IV 02/04/17 09:00 03/06/17 08:59 02/05/17 09:39 5 MLS/MIN Tramadol HCl (Ultram Tab) 50 mg Q6H PRN PO 02/03/17 23:45 03/05/17 23:44 02/05/17 03:23 50 MG Gabapentin (Neurontin Tab) 600 mg Q8H PO 02/05/17 14:00 02/06/17 06:01 Gabapentin (Neurontin Tab) 600 mg Q12H PO 02/06/17 18:00 02/07/17 06:01 Gabapentin (Neurontin Tab) 600 mg Q24H PO 02/08/17 06:00 02/08/17 06:01 Furosemide (Lasix Tab) 40 mg QAM PO 02/05/17 09:00 03/07/17 08:59 02/05/17 09:40 40 MG Lactulose (Chronulac Syrup) 30 gm BID PO 02/05/17 21:00 03/06/17 08:59 Objective Vital Signs Date Time Temp Pulse Resp B/P (MAP) Pulse Ox O2 Delivery O2 Flow Rate FiO2 02/05/17 07:19 36.8 64 18 97/64 (75) 97 2.0 02/05/17 04:00 Nasal Cannula 2.0 02/05/17 04:00 37.4 77 20 94/57 (69) 92 Nasal Cannula 2.0 02/05/17 00:00 Room Air 02/04/17 23:51 37.1 75 18 96/46 (63) 90 Room Air 02/04/17 20:00 Room Air 02/04/17 19:51 88/58 (68) 02/04/17 19:48 36.4 65 20 91/56 90 02/04/17 18:48 36.8 70 20 82/43 (56) 86/41 (56) 02/04/17 18:48 36.6 70 18 82/43 02/04/17 18:30 67 20 75/43 (54) 91 Room Air 02/04/17 18:10 36.7 66 18 84/45 93 02/04/17 17:53 36.9 64 18 85/43 93 02/04/17 17:07 36.8 60 18 96/58 (71) 94 Room Air 02/04/17 16:43 36.6 66 22 89/45 (60) 96 Room Air 02/04/17 16:05 Room Air 02/04/17 13:56 36.7 74 20 93/54 (67) 93 Room Air 02/04/17 13:39 37.0 71 20 90/44 (59) 93 02/04/17 13:18 36.8 70 20 88/46 (60) 93 Room Air 8/14/17 12:00 Room Air Physical Exam General Appearance: WD/WN, no apparent distress Eyes: normal inspection, PERRL, EOMI Neck: supple, no JVD, trachea midline Respiratory/Chest: no respiratory distress, no accessory muscle use, + decreased breath sounds Cardiovascular: regular rate, rhythm, no gallop, no murmur Abdomen: normal bowel sounds, non tender (LUQ), soft Extremities: normal inspection, no pedal edema, no calf tenderness Neurologic/Psych: alert, normal mood/affect, oriented x 3 Skin: + jaundice, + pertinent finding (+ spider angiomatas, bruising to neck, chest, arms. ) Laboratory Results Last 24 Hours Test 02/04/17 16:19 02/05/17 03:40 02/05/17 06:21 Sodium Level 121 mmol/L 122 mmol/L Potassium Level 4.6 mmol/L 4.3 mmol/L Chloride Level 89 mmol/L 90 mmol/L Carbon Dioxide Level 26 mmol/L 25 mmol/L Anion Gap 6.0 mmol/L 7.0 mmol/L Blood Urea Nitrogen 15 mg/dl 12 mg/dl Creatinine 0.95 mg/dl 0.70 mg/dl Est Creatinine Clear Calc Drug Dose 74.6 ml/min 101.0 ml/min Estimated GFR () 78.7 113.8 Estimated GFR (Non- 67.9 98.2 BUN/Creatinine Ratio 15.3 17.8 Random Glucose 82 mg/dl 66 mg/dl Calcium Level 8.4 mg/dl 8.2 mg/dl Urine Osmolality 256 mOms/kg White Blood Count 4.65 K/uL Red Blood Count 2.76 M/uL Hemoglobin 8.4 g/dL Hematocrit 24.5 % Mean Corpuscular Volume 88.8 fL Mean Corpuscular Hemoglobin 30.4 pg Mean Corpuscular Hemoglobin Concent 34.3 g/dl Platelet Count 48 K/uL Mean Platelet Volume 10.9 fL Neutrophils (%) (Auto) 68.0 % Lymphocytes (%) (Auto) 18.9 % Monocytes (%) (Auto) 12.5 % Eosinophils (%) (Auto) 0.2 % Basophils (%) (Auto) 0.2 % Neutrophils # (Auto) 3.16 K/uL Lymphocytes # (Auto) 0.88 K/uL Monocytes # (Auto) 0.58 K/uL Eosinophils # (Auto) 0.01 K/uL Basophils # (Auto) 0.01 K/uL RDW Standard Deviation 58.2 fL RDW Coefficient of Variation 18.0 % Immature Granulocyte % (Auto) 0.2 % Immature Granulocyte # (Auto) 0.01 K/uL Giant Platelets 3+ Echinocytes 1+ Prothrombin Time 16.1 SECONDS Prothromb Time International Ratio 1.5 Activated Partial Thromboplast Time 38.8 SECONDS Partial Thromboplastin Ratio 1.5 Total Bilirubin 3.6 mg/dl Direct Bilirubin 2.0 mg/dl Aspartate Amino Transf (AST/SGOT) 40 U/L Alanine Aminotransferase (ALT/SGPT) 18 U/L Alkaline Phosphatase 188 U/L Ammonia 55.0 umol/L Total Protein 5.4 gm/dl Albumin 2.8 gm/dl Assessment and Plan Impression Patient is a 52 year old female admitted for hyponatremia, LUQ abd pain, ? syncopal episode. GI following for ETOH cirrhosis. MELD 16 Plan - Increase Lactulose to 30g BID - Continue Protonix 40mg BID - Home doses Lasix 80mg BID, Spironolactone 100mg BID; Lasix restarted at 40mg daily by Nephrology, monitor Cr and electrolytes - U/S paracentesis w fluid analysis up to 5L removal ok. Albumin 25% 25g before and 25g after paracentesis. -> done 02/04, no signs of SBP on initial cell ct - 2g Na diet - Discussed w pt importance of quitting ETOH intake, advised to go through AA again. - Watch for DTs. I have seen and examined the patient with Jeanie ATKINS on 02/05. Her note reflect sour findings and plan.
[2017-02-05 11:31] VITALS: BP 85/43; PULSE 64; TEMP 36.8; O2SAT 95
[2017-02-05] MEDS: GABAPENTIN 600MG Q8H DOSE PO SCH ×2 (14:20→20:41)
[2017-02-05 15:27] VITALS: BP 88/53; PULSE 63; TEMP 36.7; O2SAT 98
[2017-02-05 16:31] LABS: BUN/CREATININE RATIO 15.1 (10-20); CALCIUM 8.1 mg/dl (8.5-10.1); CREATININE 0.87 mg/dl (0.60-1.20)
[2017-02-05] MEDS ORDERED: LACTULOSE SYRUP 30 GM/45 ML UDP PO ONE (18:15)
--- NOTE | 2017-02-05 18:33 | Progress Note ---
Internal Med Progress Note Date of Service: Feb 05, 2017. Provider Documentation: SUBJECTIVE: complains of left sided abdominal pain' constipated afebrile s/p paracentesis no sob or chest pain eating ok OBJECTIVE: Vital Signs-as noted below Exam: General-alert and oriented. Not in distress ENT-normal hearing Neck-no neck masses Lungs-cta b/l no wheezing or crackles Heart-s1 and s2 heard regular rhythm no murmurs Abdomen-soft bowel sounds present mild Luq tender mild distension Extremities-no edema no erythema skin spider nevi seen Neuro-alert and oriented moves extremities Lab data as noted below. ASSESSMENT & PLAN: Hyponatremia secondary to cirrhosis Na slowly improving Nephro consulted given Albumin, Lasix, IV fluids continue to monitor Syncope and collapse, likely secondary to hyponatremia, hypotension to correct Na Will monitor BP Left upper Quadrant pain,likely secondary to gastritis/stretching of the splenic capsule vs. rib fracture s/p paracentesis Tramadol PRN Lidoderm patch Cirrhosis of liver secondary to alcohol abuse. Alcoholic Hepatitis? last drink was last Saturday as per patient Bilirubin increasing compared to last admission platelets also decreasing, no signs of bleeding at this time Ammonia elevated no signs of encephalopathy On Lactulose monitor Discriminant Function score: 17 will hold off steroids consulted GI Thrombocytopenia Plt trending down no signs of bleeding Esophageal varices no signs of bleeding On Protonix IV BID INR seems to be at baseline monitor Deep venous thrombosis prophylaxis. heparin/Lovenox contraindicated due to thrombocytopenia Code status -- full code. Dispo pending usually lives at home PT/OT prior to discharge Vital Signs: Date Time Temp Pulse Resp B/P (MAP) Pulse Ox O2 Delivery O2 Flow Rate FiO2 02/05/17 15:27 36.7 63 18 88/53 (65) 98 Nasal Cannula 2.0 02/05/17 12:00 Nasal Cannula 2.0 02/05/17 11:31 36.8 64 16 85/43 (57) 95 Nasal Cannula 2.0 02/05/17 08:00 Nasal Cannula 2.0 02/05/17 07:19 36.8 64 18 97/64 (75) 97 2.0 02/05/17 04:00 Nasal Cannula 2.0 02/05/17 04:00 37.4 77 20 94/57 (69) 92 Nasal Cannula 2.0 02/05/17 00:00 Room Air 02/04/17 23:51 37.1 75 18 96/46 (63) 90 Room Air 02/04/17 20:00 Room Air 02/04/17 19:51 88/58 (68) 02/04/17 19:48 36.4 65 20 91/56 90 02/04/17 18:48 36.8 70 20 82/43 (56) 86/41 (56) 02/04/17 18:48 36.6 70 18 82/43 02/04/17 18:30 67 20 75/43 (54) 91 Room Air 02/04/17 18:10 36.7 66 18 84/45 93 02/04/17 17:53 36.9 64 18 85/43 93 Lab Results: Results Past 24 Hours Test 02/05/17 03:40 02/05/17 06:21 02/05/17 16:00 Range/Units Urine Osmolality 256 500-800 mOms/kg White Blood Count 4.65 4.8-10.8 K/uL Red Blood Count 2.76 4.2-5.4 M/uL Hemoglobin 8.4 12.0-16.0 g/dL Hematocrit 24.5 37-47 % Mean Corpuscular Volume 88.8 80-100 fL Mean Corpuscular Hemoglobin 30.4 25-34 pg Mean Corpuscular Hemoglobin Concent 34.3 32-36 g/dl Platelet Count 48 130-400 K/uL Mean Platelet Volume 10.9 7.4-10.4 fL Neutrophils (%) (Auto) 68.0 % Lymphocytes (%) (Auto) 18.9 % Monocytes (%) (Auto) 12.5 % Eosinophils (%) (Auto) 0.2 % Basophils (%) (Auto) 0.2 % Neutrophils # (Auto) 3.16 1.4-6.5 K/uL Lymphocytes # (Auto) 0.88 1.2-3.4 K/uL Monocytes # (Auto) 0.58 0.11-0.59 K/uL Eosinophils # (Auto) 0.01 0-0.5 K/uL Basophils # (Auto) 0.01 0-0.2 K/uL RDW Standard Deviation 58.2 36.4-46.3 fL RDW Coefficient of Variation 18.0 11.5-14.5 % Immature Granulocyte % (Auto) 0.2 % Immature Granulocyte # (Auto) 0.01 0.00-0.02 K/uL Giant Platelets 3+ Echinocytes 1+ Prothrombin Time 16.1 9.0-12.0 SECONDS Prothromb Time International Ratio 1.5 0.9-1.1 Activated Partial Thromboplast Time 38.8 21.0-31.0 SECONDS Partial Thromboplastin Ratio 1.5 Sodium Level 122 123 136-145 mmol/L Potassium Level 4.3 4.0 3.5-5.1 mmol/L Chloride Level 90 91 98-107 mmol/L Carbon Dioxide Level 25 25 21-32 mmol/L Anion Gap 7.0 7.0 3-11 mmol/L Blood Urea Nitrogen 12 13 7-18 mg/dl Creatinine 0.70 0.87 0.60-1.20 mg/dl Est Creatinine Clear Calc Drug Dose 101.0 81.3 ml/min Estimated GFR () 113.8 87.5 Estimated GFR (Non- 98.2 75.5 BUN/Creatinine Ratio 17.8 15.1 10-20 Random Glucose 66 83 70-99 mg/dl Calcium Level 8.2 8.1 8.5-10.1 mg/dl Total Bilirubin 3.6 0.2-1 mg/dl Direct Bilirubin 2.0 0-0.2 mg/dl Aspartate Amino Transf (AST/SGOT) 40 15-37 U/L Alanine Aminotransferase (ALT/SGPT) 18 12-78 U/L Alkaline Phosphatase 188 45-117 U/L Ammonia 55.0 11-32 umol/L Total Protein 5.4 6.4-8.2 gm/dl Albumin 2.8 3.4-5.0 gm/dl
[2017-02-05 19:41] VITALS: BP 90/48; PULSE 61; TEMP 36.7; O2SAT 99
[2017-02-05] MEDS: THIAMINE HCL 100 MG TAB PO SCH (20:41)
[2017-02-05 23:52] VITALS: BP 80/47; PULSE 67; TEMP 36.6; O2SAT 96
[2017-02-06] VITALS (9 sets, daily range): BP systolic 77–95; BP diastolic 40–61; PULSE 63–96; TEMP 36.6–36.8; O2SAT 81–98
[2017-02-06] MEDS ORDERED: ALBUMIN HUMAN 25% 12.5 GM/50 ML VIAL IV ONE (00:30)
[2017-02-06 00:52] LABS: HEMATOCRIT 24.8 % (37-47); MEAN CELL VOLUME 89.2 fL (80-100); MEAN CORPUSCULAR HEMOGLOBIN 30.9 pg (25-34); MEAN CORPUSCULAR HGB CONC 34.7 g/dl (32-36); RED BLOOD COUNT 2.78 M/uL (4.2-5.4); WHITE BLOOD COUNT 4.75 K/uL (4.8-10.8)
[2017-02-06 01:00] LABS: MEAN PLATELET VOLUME 11.1 fL (7.4-10.4); PLATELET COUNT 49 K/uL (130-400)
[2017-02-06 01:02] LABS: BASO % 0.4 %; BASO ABS # 0.02 K/uL (0-0.2); EOS % 0.2 %; IG% 0.4 %; LYMPH % 22.1 %; LYMPH ABS # 1.05 K/uL (1.2-3.4); MONO % 11.4 %; NEUT % 65.5 %
[2017-02-06 01:05] LABS: INR 1.4 (0.9-1.1); PROTHROMBIN TIME (PATIENT) 15.7 SECONDS (9.0-12.0)
[2017-02-06 01:22] LABS: COMPLETE YES; LARGE PLATELETS 3+
[2017-02-06 01:28] LABS: BUN/CREATININE RATIO 13.9 (10-20); CALCIUM 7.9 mg/dl (8.5-10.1); MAGNESIUM 1.9 mg/dl (1.8-2.4); POTASSIUM 3.8 mmol/L (3.5-5.1)
[2017-02-06 01:47] LABS: ALB/GLOB RATIO 0.9 (0.9-2)
[2017-02-06] MEDS: GABAPENTIN 600MG Q8H DOSE PO SCH (06:33)
[2017-02-06] MEDS: FUROSEMIDE 40 MG TAB PO SCH (07:47)
[2017-02-06] MEDS: PANTOprazole INJ 40 MG in SYRINGE 0 ML IV SCH ×2 (07:47→21:27)
[2017-02-06] MEDS: ESCITALOPRAM OXALATE 10 MG TAB PO SCH (07:47)
[2017-02-06] MEDS: LACTULOSE SYRUP 30 GM/45 ML UDP PO SCH ×2 (07:47→21:11)
[2017-02-06] MEDS: LIDODERM (LIDOCAINE) PATCH 5% TD SCH (07:49)
[2017-02-06] MEDS: TRAMADOL HCL 50 MG TAB PO PRN ×3 (08:50→23:55)
--- NOTE | 2017-02-06 09:08 | Nephrology Progress Note ---
Nephrology Progress Note Date of Service: Feb 06, 2017. Subjective 52 yo female with hyponatremia in the setting of cirrhosis. pt continues to feel better. still with some mild tenderness in the abdomen. Objective Date Time Temp Pulse Resp B/P (MAP) Pulse Ox O2 Delivery O2 Flow Rate FiO2 02/06/17 08:00 Room Air 02/06/17 06:55 36.7 64 16 95/55 (68) 98 Nasal Cannula 2.0 02/06/17 04:18 36.6 96 18 93/61 (72) 97 Nasal Cannula 02/06/17 04:00 Nasal Cannula 2.0 02/06/17 01:58 90/49 (63) 02/06/17 01:11 77/40 (52) 02/06/17 00:05 81 78/52 (61) 02/05/17 23:52 36.6 67 18 80/47 (58) 96 Nasal Cannula 02/05/17 23:36 Nasal Cannula 2.0 02/05/17 20:00 Nasal Cannula 2.0 02/05/17 19:41 36.7 61 20 90/48 (62) 99 Room Air 02/05/17 16:00 Nasal Cannula 2.0 02/05/17 15:27 36.7 63 18 88/53 (65) 98 Nasal Cannula 2.0 02/05/17 12:00 Nasal Cannula 2.0 02/05/17 11:31 36.8 64 16 85/43 (57) 95 Nasal Cannula 2.0 Physical Exam: General-[id number] Eyes-no scleral icterus ENT-mmm Neck-supple Lungs-cta Heart-rrr Abdomen-bs+/soft/+mild distention Extremities-no c/c-+1 edema in legs Neuro-nonfocal Current Inpatient Medications Medications (Trade) Dose Ordered Sig/Betty Route Start Time Stop Time Status Last Admin Dose Admin Ondansetron HCl (Zofran Inj) 4 mg Q6H PRN IV 02/02/17 23:30 03/04/17 23:29 Escitalopram Oxalate (Lexapro Tab) 10 mg QAM PO 02/03/17 09:00 03/05/17 08:59 02/06/17 07:47 10 MG Lidocaine (Lidoderm Patch 5%) 1 patch QAM TD 02/04/17 09:00 03/06/17 08:59 02/06/17 07:49 1 PATCH Miscellaneous (Remove Lidoderm Patch) 1 ea DAILY@21 N/A 02/03/17 21:00 03/05/17 20:59 02/05/17 20:49 1 EA Thiamine HCl (Vitamin B-1 Tab) 100 mg Q24H PO 02/03/17 21:00 03/05/17 20:59 02/05/17 20:41 100 MG Lorazepam (Ativan Tab) 1 mg ONE PRN PO 02/03/17 20:45 03/04/17 20:44 Pantoprazole Sodium 40 mg/ Syringe 10 ml @ 5 mls/min DAILY@ IV 02/04/17 09:00 03/06/17 08:59 02/06/17 07:47 5 MLS/MIN Tramadol HCl (Ultram Tab) 50 mg Q6H PRN PO 02/03/17 23:45 03/05/17 23:44 02/06/17 08:50 50 MG Gabapentin (Neurontin Tab) 600 mg Q12H PO 02/06/17 18:00 02/07/17 06:01 Gabapentin (Neurontin Tab) 600 mg Q24H PO 02/08/17 06:00 02/08/17 06:01 Furosemide (Lasix Tab) 40 mg QAM PO 02/05/17 09:00 03/07/17 08:59 02/06/17 07:47 40 MG Lactulose (Chronulac Syrup) 30 gm BID PO 02/05/17 21:00 03/06/17 08:59 02/05/17 20:42 30 GM Last 24 Hours Test 02/05/17 16:00 02/06/17 00:43 02/06/17 09:00 Sodium Level 123 mmol/L 126 mmol/L Potassium Level 4.0 mmol/L 3.8 mmol/L Chloride Level 91 mmol/L 94 mmol/L Carbon Dioxide Level 25 mmol/L 23 mmol/L Anion Gap 7.0 mmol/L 9.0 mmol/L Blood Urea Nitrogen 13 mg/dl 14 mg/dl Creatinine 0.87 mg/dl 1.00 mg/dl Est Creatinine Clear Calc Drug Dose 81.3 ml/min 70.7 ml/min Estimated GFR () 87.5 74.0 Estimated GFR (Non- 75.5 63.8 BUN/Creatinine Ratio 15.1 13.9 Random Glucose 83 mg/dl 85 mg/dl Calcium Level 8.1 mg/dl 7.9 mg/dl White Blood Count 4.75 K/uL Red Blood Count 2.78 M/uL Hemoglobin 8.6 g/dL Hematocrit 24.8 % Mean Corpuscular Volume 89.2 fL Mean Corpuscular Hemoglobin 30.9 pg Mean Corpuscular Hemoglobin Concent 34.7 g/dl Platelet Count 49 K/uL Mean Platelet Volume 11.1 fL Neutrophils (%) (Auto) 65.5 % Lymphocytes (%) (Auto) 22.1 % Monocytes (%) (Auto) 11.4 % Eosinophils (%) (Auto) 0.2 % Basophils (%) (Auto) 0.4 % Neutrophils # (Auto) 3.11 K/uL Lymphocytes # (Auto) 1.05 K/uL Monocytes # (Auto) 0.54 K/uL Eosinophils # (Auto) 0.01 K/uL Basophils # (Auto) 0.02 K/uL RDW Standard Deviation 58.4 fL RDW Coefficient of Variation 18.0 % Immature Granulocyte % (Auto) 0.4 % Immature Granulocyte # (Auto) 0.02 K/uL Large Platelets 3+ Basophilic Stippling 1+ Prothrombin Time 15.7 SECONDS Prothromb Time International Ratio 1.4 Lactic Acid Level 1.8 mmol/L Magnesium Level 1.9 mg/dl Total Bilirubin 3.1 mg/dl Aspartate Amino Transf (AST/SGOT) 42 U/L Alanine Aminotransferase (ALT/SGPT) 18 U/L Alkaline Phosphatase 197 U/L Ammonia 116.0 umol/L Total Protein 5.6 gm/dl Albumin 2.7 gm/dl Globulin 2.9 gm/dl Albumin/Globulin Ratio 0.9 Assessment & Plan hyponatremia-sodium levels continue to slowly trend up. sodium now up to 126. rechecking again this morning. goal is sodium above 130 if possible. on fluid restriction and lasix. continue current care and follow trends.
[2017-02-06 10:58] LABS: CALCIUM 8.2 mg/dl (8.5-10.1); CREATININE 0.82 mg/dl (0.60-1.20)
--- NOTE | 2017-02-06 11:53 | Gastroenterology Progress Note ---
Progress Note Date of Service: Feb 06, 2017 Subjective Pt evaluation today including: conversation w/ patient, physical exam, chart review, lab review, review of studies, review of inpatient medication list Pt still c/o L side tenderness. + cough, denies any SOB. Moved bowels this AM. Review of Systems Constitutional: No fever, No chills Respiratory: + cough, No shortness of breath Cardiac: No chest pain Abdomen: No pain, No nausea, No vomiting Musculoskeletal: + problem reported (L lower rib pain ) Skin: + jaundice, No rash, No itch Medications Current Inpatient Medications Medications (Trade) Dose Ordered Sig/Betty Route Start Time Stop Time Status Last Admin Dose Admin Ondansetron HCl (Zofran Inj) 4 mg Q6H PRN IV 02/02/17 23:30 03/04/17 23:29 Escitalopram Oxalate (Lexapro Tab) 10 mg QAM PO 02/03/17 09:00 03/05/17 08:59 02/06/17 07:47 10 MG Lidocaine (Lidoderm Patch 5%) 1 patch QAM TD 02/04/17 09:00 03/06/17 08:59 02/06/17 07:49 1 PATCH Miscellaneous (Remove Lidoderm Patch) 1 ea DAILY@21 N/A 02/03/17 21:00 03/05/17 20:59 02/05/17 20:49 1 EA Thiamine HCl (Vitamin B-1 Tab) 100 mg Q24H PO 02/03/17 21:00 03/05/17 20:59 02/05/17 20:41 100 MG Lorazepam (Ativan Tab) 1 mg ONE PRN PO 02/03/17 20:45 03/04/17 20:44 Pantoprazole Sodium 40 mg/ Syringe 10 ml @ 5 mls/min DAILY@09,21 IV 02/04/17 09:00 03/06/17 08:59 02/06/17 07:47 5 MLS/MIN Tramadol HCl (Ultram Tab) 50 mg Q6H PRN PO 02/03/17 23:45 03/05/17 23:44 02/06/17 08:50 50 MG Gabapentin (Neurontin Tab) 600 mg Q12H PO 02/06/17 18:00 02/07/17 06:01 Gabapentin (Neurontin Tab) 600 mg Q24H PO 02/08/17 06:00 02/08/17 06:01 Furosemide (Lasix Tab) 40 mg QAM PO 02/05/17 09:00 03/07/17 08:59 02/06/17 07:47 40 MG Lactulose (Chronulac Syrup) 30 gm BID PO 02/05/17 21:00 03/06/17 08:59 02/05/17 20:42 30 GM Objective Vital Signs Date Time Temp Pulse Resp B/P (MAP) Pulse Ox O2 Delivery O2 Flow Rate FiO2 02/06/17 11:42 36.8 63 17 84/49 (61) 98 Nasal Cannula 2.0 02/06/17 11:27 Room Air 02/06/17 08:00 Room Air 02/06/17 06:55 36.7 64 16 95/55 (68) 98 Nasal Cannula 2.0 02/06/17 04:18 36.6 96 18 93/61 (72) 97 Nasal Cannula 02/06/17 04:00 Nasal Cannula 2.0 02/06/17 01:58 90/49 (63) 02/06/17 01:11 77/40 (52) 02/06/17 00:05 81 78/52 (61) 02/05/17 23:52 36.6 67 18 80/47 (58) 96 Nasal Cannula 02/05/17 23:36 Nasal Cannula 2.0 02/05/17 20:00 Nasal Cannula 2.0 02/05/17 19:41 36.7 61 20 90/48 (62) 99 Room Air 02/05/17 16:00 Nasal Cannula 2.0 02/05/17 15:27 36.7 63 18 88/53 (65) 98 Nasal Cannula 2.0 02/05/17 12:00 Nasal Cannula 2.0 Physical Exam General Appearance: WD/WN, no apparent distress Eyes: normal inspection, PERRL, EOMI Neck: supple, no JVD, trachea midline Respiratory/Chest: + decreased breath sounds, + crackles (L upper lobe) Cardiovascular: regular rate, rhythm, no gallop, no murmur Abdomen: normal bowel sounds, non tender, + distended (mild) Extremities: normal inspection, no pedal edema, no calf tenderness Neurologic/Psych: alert, normal mood/affect, oriented x 3 Skin: + jaundice, + pertinent finding (spider angiomatas on trunk and neck, arms; along w varying areas of bruising on arms. ) Laboratory Results Last 24 Hours Test 02/05/17 16:00 02/06/17 00:43 02/06/17 10:06 Sodium Level 123 mmol/L 126 mmol/L 123 mmol/L Potassium Level 4.0 mmol/L 3.8 mmol/L 4.0 mmol/L Chloride Level 91 mmol/L 94 mmol/L 92 mmol/L Carbon Dioxide Level 25 mmol/L 23 mmol/L 26 mmol/L Anion Gap 7.0 mmol/L 9.0 mmol/L 5.0 mmol/L Blood Urea Nitrogen 13 mg/dl 14 mg/dl 14 mg/dl Creatinine 0.87 mg/dl 1.00 mg/dl 0.82 mg/dl Est Creatinine Clear Calc Drug Dose 81.3 ml/min 70.7 ml/min 86.1 ml/min Estimated GFR () 87.5 74.0 94.0 Estimated GFR (Non- 75.5 63.8 81.1 BUN/Creatinine Ratio 15.1 13.9 17.0 Random Glucose 83 mg/dl 85 mg/dl 104 mg/dl Calcium Level 8.1 mg/dl 7.9 mg/dl 8.2 mg/dl White Blood Count 4.75 K/uL Red Blood Count 2.78 M/uL Hemoglobin 8.6 g/dL Hematocrit 24.8 % Mean Corpuscular Volume 89.2 fL Mean Corpuscular Hemoglobin 30.9 pg Mean Corpuscular Hemoglobin Concent 34.7 g/dl Platelet Count 49 K/uL Mean Platelet Volume 11.1 fL Neutrophils (%) (Auto) 65.5 % Lymphocytes (%) (Auto) 22.1 % Monocytes (%) (Auto) 11.4 % Eosinophils (%) (Auto) 0.2 % Basophils (%) (Auto) 0.4 % Neutrophils # (Auto) 3.11 K/uL Lymphocytes # (Auto) 1.05 K/uL Monocytes # (Auto) 0.54 K/uL Eosinophils # (Auto) 0.01 K/uL Basophils # (Auto) 0.02 K/uL RDW Standard Deviation 58.4 fL RDW Coefficient of Variation 18.0 % Immature Granulocyte % (Auto) 0.4 % Immature Granulocyte # (Auto) 0.02 K/uL Large Platelets 3+ Basophilic Stippling 1+ Prothrombin Time 15.7 SECONDS Prothromb Time International Ratio 1.4 Lactic Acid Level 1.8 mmol/L Magnesium Level 1.9 mg/dl Total Bilirubin 3.1 mg/dl Aspartate Amino Transf (AST/SGOT) 42 U/L Alanine Aminotransferase (ALT/SGPT) 18 U/L Alkaline Phosphatase 197 U/L Ammonia 116.0 umol/L Total Protein 5.6 gm/dl Albumin 2.7 gm/dl Globulin 2.9 gm/dl Albumin/Globulin Ratio 0.9 Assessment and Plan Impression Patient is a 52 year old female admitted for hyponatremia, LUQ abd pain, ? syncopal episode. GI following for ETOH cirrhosis. MELD 16 Plan - Lactulose 30g BID may titrate to goal BM 3-5 a day - Continue Protonix 40mg BID - Home doses Lasix 80mg BID, Spironolactone 100mg BID; Lasix restarted at 40mg daily by Nephrology, monitor Cr and electrolytes - U/S paracentesis w fluid analysis up to 5L removal ok. Albumin 25% 25g before and 25g after paracentesis. -> done 02/04, no signs of SBP on initial cell ct - 2g Na diet - Discussed w pt importance of quitting ETOH intake, advised to go through AA again. - Watch for DTs. - No new GI plans; will watch peripherally, call if new questions/concerns arise. I have seen and examined the patient with Jeanie Guy whose note reflects our findings and plan. I had a long conversation with the patient yesterday regarding her continued daily ETOH abuse. She needs to go to rehab. Mortality is high with continued drinking. Family present.
--- NOTE | 2017-02-06 17:19 | Progress Note ---
Internal Med Progress Note Date of Service: Feb 06, 2017. Provider Documentation: SUBJECTIVE: resting comfortably had a large bowel movement last night afebrile no sob doing ok OBJECTIVE: Vital Signs-as noted below Exam: General-alert and oriented. Not in distress ENT-normal hearing Neck-no neck masses Lungs-cta b/l no wheezing or crackles Heart-s1 and s2 heard regular rhythm no murmurs Abdomen-soft bowel sounds present mild Luq tender mild distension Extremities-no edema no erythema skin spider nevi seen Neuro-alert and oriented moves extremities Lab data as noted below. ASSESSMENT & PLAN: Hyponatremia secondary to cirrhosis Na slowly improving Nephro consulted given Albumin, Lasix, IV fluids continue to monitor currently on fluid restriction 1500ml/day and lasix 40mg daily NA 126 in am and dropped again to 123 will d/w nephrology Syncope and collapse, likely secondary to hyponatremia, hypotension to correct Na Will monitor BP pt/ot Left upper Quadrant pain,likely secondary to gastritis/stretching of the splenic capsule vs. rib fracture s/p paracentesis Tramadol PRN Lidoderm patch Cirrhosis of liver secondary to alcohol abuse. Alcoholic Hepatitis? Discriminant Function score: 17 last drink was last Saturday as per patient Bilirubin increasing compared to last admission platelets also decreasing, no signs of bleeding at this time Ammonia elevated no signs of encephalopathy On Lactulose monitor GI on board held home diuretics and restarted Lasix at 40mg daily f/u ammonia levels in am Strong advice for alcohol cessation- Needs to go to rehab Thrombocytopenia Plt in 40's no signs of bleeding Esophageal varices no signs of bleeding On Protonix IV BID Deep venous thrombosis prophylaxis. heparin/Lovenox contraindicated due to thrombocytopenia Code status -- full code. Dispo transfer to medical floor usually lives at home PT/OT prior to discharge social service for d/c planning Vital Signs: Date Time Temp Pulse Resp B/P (MAP) Pulse Ox O2 Delivery O2 Flow Rate FiO2 02/06/17 15:33 36.7 66 18 94/54 (67) 94 Nasal Cannula 2.0 02/06/17 15:27 36.8 63 17 98 2.0 02/06/17 11:42 36.8 63 17 84/49 (61) 98 Nasal Cannula 2.0 02/06/17 11:27 Room Air 02/06/17 08:00 Room Air 02/06/17 06:55 36.7 64 16 95/55 (68) 98 Nasal Cannula 2.0 02/06/17 04:18 36.6 96 18 93/61 (72) 97 Nasal Cannula 02/06/17 04:00 Nasal Cannula 2.0 02/06/17 01:58 90/49 (63) 02/06/17 01:11 77/40 (52) 02/06/17 00:05 81 78/52 (61) 02/05/17 23:52 36.6 67 18 80/47 (58) 96 Nasal Cannula 02/05/17 23:36 Nasal Cannula 2.0 02/05/17 20:00 Nasal Cannula 2.0 02/05/17 19:41 36.7 61 20 90/48 (62) 99 Room Air Lab Results: Results Past 24 Hours Test 02/06/17 00:43 02/06/17 10:06 Range/Units White Blood Count 4.75 4.8-10.8 K/uL Red Blood Count 2.78 4.2-5.4 M/uL Hemoglobin 8.6 12.0-16.0 g/dL Hematocrit 24.8 37-47 % Mean Corpuscular Volume 89.2 80-100 fL Mean Corpuscular Hemoglobin 30.9 25-34 pg Mean Corpuscular Hemoglobin Concent 34.7 32-36 g/dl Platelet Count 49 130-400 K/uL Mean Platelet Volume 11.1 7.4-10.4 fL Neutrophils (%) (Auto) 65.5 % Lymphocytes (%) (Auto) 22.1 % Monocytes (%) (Auto) 11.4 % Eosinophils (%) (Auto) 0.2 % Basophils (%) (Auto) 0.4 % Neutrophils # (Auto) 3.11 1.4-6.5 K/uL Lymphocytes # (Auto) 1.05 1.2-3.4 K/uL Monocytes # (Auto) 0.54 0.11-0.59 K/uL Eosinophils # (Auto) 0.01 0-0.5 K/uL Basophils # (Auto) 0.02 0-0.2 K/uL RDW Standard Deviation 58.4 36.4-46.3 fL RDW Coefficient of Variation 18.0 11.5-14.5 % Immature Granulocyte % (Auto) 0.4 % Immature Granulocyte # (Auto) 0.02 0.00-0.02 K/uL Large Platelets 3+ Basophilic Stippling 1+ Prothrombin Time 15.7 9.0-12.0 SECONDS Prothromb Time International Ratio 1.4 0.9-1.1 Sodium Level 126 123 136-145 mmol/L Potassium Level 3.8 4.0 3.5-5.1 mmol/L Chloride Level 94 92 98-107 mmol/L Carbon Dioxide Level 23 26 21-32 mmol/L Anion Gap 9.0 5.0 3-11 mmol/L Blood Urea Nitrogen 14 14 7-18 mg/dl Creatinine 1.00 0.82 0.60-1.20 mg/dl Est Creatinine Clear Calc Drug Dose 70.7 86.1 ml/min Estimated GFR () 74.0 94.0 Estimated GFR (Non- 63.8 81.1 BUN/Creatinine Ratio 13.9 17.0 10-20 Random Glucose 85 104 70-99 mg/dl Lactic Acid Level 1.8 0.4-2.0 mmol/L Calcium Level 7.9 8.2 8.5-10.1 mg/dl Magnesium Level 1.9 1.8-2.4 mg/dl Total Bilirubin 3.1 0.2-1 mg/dl Aspartate Amino Transf (AST/SGOT) 42 15-37 U/L Alanine Aminotransferase (ALT/SGPT) 18 12-78 U/L Alkaline Phosphatase 197 45-117 U/L Ammonia 116.0 11-32 umol/L Total Protein 5.6 6.4-8.2 gm/dl Albumin 2.7 3.4-5.0 gm/dl Globulin 2.9 2.5-4.0 gm/dl Albumin/Globulin Ratio 0.9 0.9-2
[2017-02-06] MEDS: GABAPENTIN 600MG Q12H DOSE PO SCH (19:02)
[2017-02-06] MEDS: THIAMINE HCL 100 MG TAB PO SCH (21:11)
[2017-02-06] MEDS ORDERED: LORAZEPAM 0.5 MG TAB PO ONE (22:00)
[2017-02-07] VITALS: O2SAT 94
[2017-02-07 00:29] VITALS: BP 87/59; PULSE 66; TEMP 36.6; O2SAT 96
[2017-02-07] MEDS ORDERED: NURSING VERBAL MED ORDER ONE ×2 (04:30→17:15)
[2017-02-07] MEDS ORDERED: COUGH DROP (SUGAR FREE) LOZ 24 LOZ/1 BOX PO PRN (05:30)
[2017-02-07] MEDS: GABAPENTIN 600MG Q12H DOSE PO SCH (05:39)
[2017-02-07 05:49] LABS: HEMATOCRIT 25.2 % (37-47); MEAN CELL VOLUME 89.7 fL (80-100); MEAN CORPUSCULAR HEMOGLOBIN 31.3 pg (25-34); MEAN CORPUSCULAR HGB CONC 34.9 g/dl (32-36); RED BLOOD COUNT 2.81 M/uL (4.2-5.4); WHITE BLOOD COUNT 4.34 K/uL (4.8-10.8)
[2017-02-07 06:01] LABS: MEAN PLATELET VOLUME 11.4 fL (7.4-10.4); PLATELET COUNT 43 K/uL (130-400)
[2017-02-07 07:09] LABS: ANISOCYTOSIS PRESENT; BASO % 0.7 %; BASO ABS # 0.03 K/uL (0-0.2); COMPLETE YES; ECHINOCYTES 1+; GIANT PLATELETS 3+; IG% 0.2 %; LYMPH % 16.4 %; LYMPH ABS # 0.71 K/uL (1.2-3.4); MONO % 13.4 %; NEUT % 69.3 %; POIKILOCYTOSIS PRESENT
[2017-02-07 07:49] VITALS: BP 92/53; PULSE 66; TEMP 36.6; O2SAT 99
[2017-02-07 08:27] LABS: BUN/CREATININE RATIO 17.8 (10-20); CALCIUM 8.5 mg/dl (8.5-10.1); CREATININE 0.65 mg/dl (0.60-1.20); POTASSIUM 4.1 mmol/L (3.5-5.1)
[2017-02-07] MEDS: LACTULOSE SYRUP 30 GM/45 ML UDP PO SCH ×2 (09:17→20:00)
[2017-02-07] MEDS: FUROSEMIDE 40 MG TAB PO SCH ×2 (09:19→17:00)
[2017-02-07] MEDS: ESCITALOPRAM OXALATE 10 MG TAB PO SCH (09:20)
[2017-02-07] MEDS: TRAMADOL HCL 50 MG TAB PO PRN ×2 (09:21→20:29)
[2017-02-07] MEDS: LIDODERM (LIDOCAINE) PATCH 5% TD SCH (09:25)
[2017-02-07] MEDS: PANTOprazole INJ 40 MG in SYRINGE 0 ML IV SCH ×2 (09:26→20:30)
[2017-02-07] MEDS ORDERED: SPIRONOLACTONE 25 MG TAB PO STA (11:05)
--- NOTE | 2017-02-07 15:14 | DIAGNOSTIC IMAGING REPORT ---
RIBS BILATERAL WITH PA CHEST CLINICAL HISTORY: rib fx? Cough cough. Dyspnea. COMPARISON STUDY: 02/02/2017 FINDINGS: Nondisplaced cortical fracture left third fourth fifth and sixth ribs. Nondisplaced cortical fracture right fourth and fifth ribs. Lungs show minimal dependent atelectatic change. Lungs otherwise are clear. IMPRESSION: 1. Nondisplaced fractures of the left third through sixth ribs. 2. Nondisplaced fracture right fourth and fifth ribs. 3. No evidence of pneumothorax. The above report was generated using voice recognition software. It may contain grammatical, syntax or spelling errors. Electronically signed by: Mirza Spain M.D. 02/07/2017 3:13 PM Dictated Date/Time: 02/07/2017 3:11 PM
--- NOTE | 2017-02-07 15:16 | DIAGNOSTIC IMAGING REPORT ---
CERVICAL SPINE 2 OR 3 VIEWS HISTORY: Trauma fall. neck pain COMPARISON: None. FINDINGS: The cervical spine is visualized from C1 through the superior endplate of T1. There is no fracture. No subluxation. Moderate degenerative disc change at C6-C7. C1-C2 complex is intact. Prevertebral soft tissues and the atlantodens interval are intact. IMPRESSION: Degenerative change. No acute process. The above report was generated using voice recognition software. It may contain grammatical, syntax or spelling errors. Electronically signed by: Mirza Spain M.D. 02/07/2017 3:14 PM Dictated Date/Time: 02/07/2017 3:13 PM
--- NOTE | 2017-02-07 15:54 | Nephrology Progress Note ---
Nephrology Progress Note Date of Service: Feb 07, 2017. Subjective 52 yo female with hyponatremia in the setting of cirrhosis. pt doing well. no complaints at this time. resting comfortably. pt having a difficult time with the fluid restriction. Objective Date Time Temp Pulse Resp B/P (MAP) Pulse Ox O2 Delivery O2 Flow Rate FiO2 02/07/17 08:00 Room Air 02/07/17 07:49 36.6 66 18 92/53 (66) 99 Nasal Cannula 2.0 02/07/17 00:29 36.6 66 20 87/59 (68) 96 Room Air 02/07/17 00:00 94 Nasal Cannula 2.0 02/06/17 16:00 94 Nasal Cannula 2.0 Physical Exam: General-aaox3 Eyes-no scleral icterus ENT-mmm Neck-supple Lungs-clear Heart-regular Abdomen-bs+/soft/+mild distention Extremities-no c/c-+1 edema in legs Neuro-nonfocal Current Inpatient Medications Medications (Trade) Dose Ordered Sig/Betty Route Start Time Stop Time Status Last Admin Dose Admin Ondansetron HCl (Zofran Inj) 4 mg Q6H PRN IV 02/02/17 23:30 03/04/17 23:29 Escitalopram Oxalate (Lexapro Tab) 10 mg QAM PO 02/03/17 09:00 03/05/17 08:59 02/07/17 09:20 10 MG Lidocaine (Lidoderm Patch 5%) 1 patch QAM TD 02/04/17 09:00 03/06/17 08:59 02/07/17 09:25 1 PATCH Miscellaneous (Remove Lidoderm Patch) 1 ea DAILY@21 N/A 02/03/17 21:00 03/05/17 20:59 02/06/17 21:12 1 EA Thiamine HCl (Vitamin B-1 Tab) 100 mg Q24H PO 02/03/17 21:00 03/05/17 20:59 02/06/17 21:11 100 MG Lorazepam (Ativan Tab) 1 mg ONE PRN PO 02/03/17 20:45 03/04/17 20:44 Pantoprazole Sodium 40 mg/ Syringe 10 ml @ 5 mls/min DAILY@09,21 IV 02/04/17 09:00 03/06/17 08:59 02/07/17 09:26 5 MLS/MIN Tramadol HCl (Ultram Tab) 50 mg Q6H PRN PO 02/03/17 23:45 03/05/17 23:44 02/07/17 09:21 50 MG Gabapentin (Neurontin Tab) 600 mg Q24H PO 02/08/17 06:00 02/08/17 06:01 Lactulose (Chronulac Syrup) 30 gm BID PO 02/05/17 21:00 03/06/17 08:59 02/07/17 09:17 30 GM Menthol (Nice Douglas) 1 douglas PRN PRN PO 02/07/17 05:30 03/09/17 05:29 02/07/17 05:39 1 DOUGLAS Furosemide (Lasix Tab) 40 mg BID17 PO 02/07/17 17:00 03/09/17 16:59 Spironolactone (Aldactone Tab) 25 mg QAM PO 02/08/17 08:00 03/10/17 07:59 Last 24 Hours Test 02/07/17 05:29 02/07/17 07:51 White Blood Count 4.34 K/uL Red Blood Count 2.81 M/uL Hemoglobin 8.8 g/dL Hematocrit 25.2 % Mean Corpuscular Volume 89.7 fL Mean Corpuscular Hemoglobin 31.3 pg Mean Corpuscular Hemoglobin Concent 34.9 g/dl Platelet Count 43 K/uL Mean Platelet Volume 11.4 fL Neutrophils (%) (Auto) 69.3 % Lymphocytes (%) (Auto) 16.4 % Monocytes (%) (Auto) 13.4 % Eosinophils (%) (Auto) 0.0 % Basophils (%) (Auto) 0.7 % Neutrophils # (Auto) 3.01 K/uL Lymphocytes # (Auto) 0.71 K/uL Monocytes # (Auto) 0.58 K/uL Eosinophils # (Auto) 0.00 K/uL Basophils # (Auto) 0.03 K/uL RDW Standard Deviation 59.7 fL RDW Coefficient of Variation 18.2 % Immature Granulocyte % (Auto) 0.2 % Immature Granulocyte # (Auto) 0.01 K/uL Giant Platelets 3+ Poikilocytosis PRESENT Anisocytosis PRESENT Echinocytes 1+ Total Bilirubin 2.9 mg/dl Direct Bilirubin 1.7 mg/dl Aspartate Amino Transf (AST/SGOT) 39 U/L Alanine Aminotransferase (ALT/SGPT) 18 U/L Alkaline Phosphatase 182 U/L Ammonia 53.0 umol/L Total Protein 5.7 gm/dl Albumin 2.9 gm/dl Sodium Level 127 mmol/L Potassium Level 4.1 mmol/L Chloride Level 95 mmol/L Carbon Dioxide Level 27 mmol/L Anion Gap 5.0 mmol/L Blood Urea Nitrogen 12 mg/dl Creatinine 0.65 mg/dl Est Creatinine Clear Calc Drug Dose 106.1 ml/min Estimated GFR () 116.7 Estimated GFR (Non- 100.7 BUN/Creatinine Ratio 17.8 Random Glucose 79 mg/dl Calcium Level 8.5 mg/dl Magnesium Level 2.0 mg/dl Assessment & Plan hyponatremia-sodium levels are 127 this morning. have increased the lasix to twice a day and restarted the spironolactone. both at lower doses than when she was admitted. will follow bp and make sure she is not symptomatic ie lightheaded. hoping the increase in diuretics with the fluid restriction improves sodium levels up to the 130 range.
[2017-02-07 16:14] VITALS: BP 81/45; PULSE 67; TEMP 36.5; O2SAT 98
[2017-02-07 16:16] VITALS: BP_SYST 75; BP_SYST 84; BP_DIAS 45; BP_DIAS 49; PULSE 71; TEMP 36.6; O2SAT 97
[2017-02-07] MEDS ORDERED: SODIUM CHLORIDE 0.9% 250ML 250 ML IV SCH (17:45)
--- NOTE | 2017-02-07 19:33 | Progress Note ---
Internal Med Progress Note Date of Service: Feb 07, 2017. Provider Documentation: SUBJECTIVE: resting comfortably AMBULATED SOME DENIES PAIN NO SOB AFEBRILE OBJECTIVE: Vital Signs-as noted below Exam: General-alert and oriented. Not in distress ENT-normal hearing Neck-no neck masses Lungs-cta b/l no wheezing or crackles Heart-s1 and s2 heard regular rhythm no murmurs Abdomen-soft bowel sounds present mild Luq tender mild distension Extremities-no edema no erythema skin spider nevi seen Neuro-alert and oriented moves extremities Lab data as noted below. ASSESSMENT & PLAN: Hyponatremia secondary to cirrhosis Na slowly improving Nephro consulted given Albumin, Lasix, IV fluids continue to monitor currently on fluid restriction 1500ml/day and lasix 40mg daily NA 127 today increased Lasix and restarted Aldactone at lower dose but BP low will d/w nephrology Syncope and collapse, likely secondary to hyponatremia, hypotension to correct Na Will monitor BP pt/ot Left upper Quadrant pain,likely secondary to gastritis/stretching of the splenic capsule vs. rib fracture s/p paracentesis Tramadol PRN Lidoderm patch Cirrhosis of liver secondary to alcohol abuse. Alcoholic Hepatitis? Discriminant Function score: 17 last drink was last Saturday as per patient Bilirubin increasing compared to last admission platelets also decreasing, no signs of bleeding at this time Ammonia elevated no signs of encephalopathy On Lactulose monitor GI on board held home diuretics and restarted Lasix at 40mg daily f/u ammonia levels- 55 today Strong advice for alcohol cessation- Needs to go to rehab but patient wants to go home Thrombocytopenia Plt in 40's no signs of bleeding Esophageal varices no signs of bleeding On Protonix IV BID Deep venous thrombosis prophylaxis. heparin/Lovenox contraindicated due to thrombocytopenia Code status -- full code. Dispo usually lives at home PT/OT prior to discharge social service for d/c planning Vital Signs: Date Time Temp Pulse Resp B/P (MAP) Pulse Ox O2 Delivery O2 Flow Rate FiO2 02/07/17 16:16 36.6 71 18 84/49 (61) 97 Room Air 75/45 (55) 02/07/17 16:14 36.5 67 18 81/45 (57) 98 Room Air 02/07/17 16:00 Room Air 02/07/17 08:00 Room Air 02/07/17 07:49 36.6 66 18 92/53 (66) 99 Nasal Cannula 2.0 02/07/17 00:29 36.6 66 20 87/59 (68) 96 Room Air 02/07/17 00:00 94 Nasal Cannula 2.0 Lab Results: Results Past 24 Hours Test 02/07/17 05:29 02/07/17 07:51 Range/Units White Blood Count 4.34 4.8-10.8 K/uL Red Blood Count 2.81 4.2-5.4 M/uL Hemoglobin 8.8 12.0-16.0 g/dL Hematocrit 25.2 37-47 % Mean Corpuscular Volume 89.7 80-100 fL Mean Corpuscular Hemoglobin 31.3 25-34 pg Mean Corpuscular Hemoglobin Concent 34.9 32-36 g/dl Platelet Count 43 130-400 K/uL Mean Platelet Volume 11.4 7.4-10.4 fL Neutrophils (%) (Auto) 69.3 % Lymphocytes (%) (Auto) 16.4 % Monocytes (%) (Auto) 13.4 % Eosinophils (%) (Auto) 0.0 % Basophils (%) (Auto) 0.7 % Neutrophils # (Auto) 3.01 1.4-6.5 K/uL Lymphocytes # (Auto) 0.71 1.2-3.4 K/uL Monocytes # (Auto) 0.58 0.11-0.59 K/uL Eosinophils # (Auto) 0.00 0-0.5 K/uL Basophils # (Auto) 0.03 0-0.2 K/uL RDW Standard Deviation 59.7 36.4-46.3 fL RDW Coefficient of Variation 18.2 11.5-14.5 % Immature Granulocyte % (Auto) 0.2 % Immature Granulocyte # (Auto) 0.01 0.00-0.02 K/uL Giant Platelets 3+ Poikilocytosis PRESENT Anisocytosis PRESENT Echinocytes 1+ Total Bilirubin 2.9 0.2-1 mg/dl Direct Bilirubin 1.7 0-0.2 mg/dl Aspartate Amino Transf (AST/SGOT) 39 15-37 U/L Alanine Aminotransferase (ALT/SGPT) 18 12-78 U/L Alkaline Phosphatase 182 45-117 U/L Ammonia 53.0 11-32 umol/L Total Protein 5.7 6.4-8.2 gm/dl Albumin 2.9 3.4-5.0 gm/dl Sodium Level 127 136-145 mmol/L Potassium Level 4.1 3.5-5.1 mmol/L Chloride Level 95 98-107 mmol/L Carbon Dioxide Level 27 21-32 mmol/L Anion Gap 5.0 3-11 mmol/L Blood Urea Nitrogen 12 7-18 mg/dl Creatinine 0.65 0.60-1.20 mg/dl Est Creatinine Clear Calc Drug Dose 106.1 ml/min Estimated GFR () 116.7 Estimated GFR (Non- 100.7 BUN/Creatinine Ratio 17.8 10-20 Random Glucose 79 70-99 mg/dl Calcium Level 8.5 8.5-10.1 mg/dl Magnesium Level 2.0 1.8-2.4 mg/dl
[2017-02-07] MEDS: THIAMINE HCL 100 MG TAB PO SCH (20:30)
[2017-02-08 00:04] VITALS: BP 91/52; PULSE 69; TEMP 36.5; O2SAT 98
[2017-02-08] MEDS: TRAMADOL HCL 50 MG TAB PO PRN ×2 (05:24→18:10)
[2017-02-08] MEDS ORDERED: GABAPENTIN 600MG X1 DOSE PO SCH (06:00)
[2017-02-08 06:03] LABS: HEMATOCRIT 26.3 % (37-47); MEAN CELL VOLUME 90.7 fL (80-100); MEAN CORPUSCULAR HGB CONC 34.2 g/dl (32-36); WHITE BLOOD COUNT 4.64 K/uL (4.8-10.8)
[2017-02-08 06:05] LABS: MEAN PLATELET VOLUME 10.7 fL (7.4-10.4); PLATELET COUNT 50 K/uL (130-400)
[2017-02-08 07:15] LABS: ANISOCYTOSIS PRESENT; BASO % 0.4 %; BASO ABS # 0.02 K/uL (0-0.2); COMPLETE YES; ECHINOCYTES 1+; EOS % 0.6 %; GIANT PLATELETS 1+; IG% 0.4 %; LYMPH % 21.6 %; MONO % 10.3 %; NEUT % 66.7 %; PLT ESTIMATE DECREASED
[2017-02-08 07:27] VITALS: BP 100/59; PULSE 69; TEMP 36.8; O2SAT 97
--- NOTE | 2017-02-08 07:36 | Nephrology Progress Note ---
Nephrology Progress Note Date of Service: Feb 08, 2017. Subjective 52 yo female with hyponatremia in the setting of cirrhosis. pt doing well. on fluid restriction and increased her diuretics yesterday. pts blood pressure though are low and pt was lightheaded yesterday. continues to have pain in the right upper quadrant Objective Date Time Temp Pulse Resp B/P (MAP) Pulse Ox O2 Delivery O2 Flow Rate FiO2 02/08/17 07:27 36.8 69 16 100/59 (73) 97 2.0 02/08/17 00:04 36.5 69 18 91/52 (65) 98 2.0 02/08/17 00:00 Room Air 02/07/17 16:16 36.6 71 18 84/49 (61) 97 Room Air 75/45 (55) 02/07/17 16:14 36.5 67 18 81/45 (57) 98 Room Air 02/07/17 16:00 Room Air 02/07/17 08:00 Room Air 02/07/17 07:49 36.6 66 18 92/53 (66) 99 Nasal Cannula 2.0 Physical Exam: General-aaox3 Eyes-no scleral icterus ENT-mmm Neck-supple Lungs-cta Heart-rrr Abdomen-bs+/soft/+mild distention-pain in the right upper quadrant Extremities-no c/c-+1 edema in legs Neuro-nonfocal Current Inpatient Medications Medications (Trade) Dose Ordered Sig/Betty Route Start Time Stop Time Status Last Admin Dose Admin Ondansetron HCl (Zofran Inj) 4 mg Q6H PRN IV 02/02/17 23:30 03/04/17 23:29 Escitalopram Oxalate (Lexapro Tab) 10 mg QAM PO 02/03/17 09:00 03/05/17 08:59 02/07/17 09:20 10 MG Lidocaine (Lidoderm Patch 5%) 1 patch QAM TD 02/04/17 09:00 03/06/17 08:59 02/07/17 09:25 1 PATCH Miscellaneous (Remove Lidoderm Patch) 1 ea DAILY@21 N/A 02/03/17 21:00 03/05/17 20:59 02/07/17 20:43 1 EA Thiamine HCl (Vitamin B-1 Tab) 100 mg Q24H PO 02/03/17 21:00 03/05/17 20:59 02/07/17 20:30 100 MG Pantoprazole Sodium 40 mg/ Syringe 10 ml @ 5 mls/min DAILY@ IV 02/04/17 09:00 03/06/17 08:59 02/07/17 20:30 5 MLS/MIN Tramadol HCl (Ultram Tab) 50 mg Q6H PRN PO 02/03/17 23:45 03/05/17 23:44 02/08/17 05:24 50 MG Lactulose (Chronulac Syrup) 30 gm BID PO 02/05/17 21:00 03/06/17 08:59 02/07/17 09:17 30 GM Menthol (Nice Douglas) 1 douglas PRN PRN PO 02/07/17 05:30 03/09/17 05:29 02/07/17 05:39 1 DOUGLAS Furosemide (Lasix Tab) 40 mg BID17 PO 02/07/17 17:00 03/09/17 16:59 Spironolactone (Aldactone Tab) 25 mg QAM PO 02/08/17 08:00 03/10/17 07:59 Last 24 Hours Test 02/07/17 07:51 02/08/17 05:29 02/08/17 07:24 Sodium Level 127 mmol/L Potassium Level 4.1 mmol/L Chloride Level 95 mmol/L Carbon Dioxide Level 27 mmol/L Anion Gap 5.0 mmol/L Blood Urea Nitrogen 12 mg/dl Creatinine 0.65 mg/dl Est Creatinine Clear Calc Drug Dose 106.1 ml/min Estimated GFR () 116.7 Estimated GFR (Non- 100.7 BUN/Creatinine Ratio 17.8 Random Glucose 79 mg/dl Calcium Level 8.5 mg/dl Magnesium Level 2.0 mg/dl White Blood Count 4.64 K/uL Red Blood Count 2.90 M/uL Hemoglobin 9.0 g/dL Hematocrit 26.3 % Mean Corpuscular Volume 90.7 fL Mean Corpuscular Hemoglobin 31.0 pg Mean Corpuscular Hemoglobin Concent 34.2 g/dl Platelet Count 50 K/uL Mean Platelet Volume 10.7 fL Neutrophils (%) (Auto) 66.7 % Lymphocytes (%) (Auto) 21.6 % Monocytes (%) (Auto) 10.3 % Eosinophils (%) (Auto) 0.6 % Basophils (%) (Auto) 0.4 % Neutrophils # (Auto) 3.09 K/uL Lymphocytes # (Auto) 1.00 K/uL Monocytes # (Auto) 0.48 K/uL Eosinophils # (Auto) 0.03 K/uL Basophils # (Auto) 0.02 K/uL RDW Standard Deviation 62.1 fL RDW Coefficient of Variation 18.9 % Immature Granulocyte % (Auto) 0.4 % Immature Granulocyte # (Auto) 0.02 K/uL Platelet Estimate DECREASED Giant Platelets 1+ Anisocytosis PRESENT Echinocytes 1+ Total Bilirubin 3.5 mg/dl Direct Bilirubin 1.9 mg/dl Aspartate Amino Transf (AST/SGOT) 46 U/L Alanine Aminotransferase (ALT/SGPT) 19 U/L Alkaline Phosphatase 194 U/L Total Protein 5.8 gm/dl Albumin 2.8 gm/dl Assessment & Plan hyponatremia-thought to be from cirrhosis. on fluid restriction and lasix and spironolactone. sodium up to 127 yesterday. todays labs are pending. however bp is low and would like to start midodrine 2.5 tid and titrate up as needed to help raise bp so we can continue to keep diuretics on board.
[2017-02-08] MEDS: FUROSEMIDE 40 MG TAB PO SCH ×2 (09:00→16:50)
[2017-02-08] MEDS: PANTOprazole INJ 40 MG in SYRINGE 0 ML IV SCH (09:09)
[2017-02-08] MEDS: MIDODRINE 2.5 MG TAB PO SCH ×3 (09:09→16:52)
[2017-02-08] MEDS: ESCITALOPRAM OXALATE 10 MG TAB PO SCH (09:09)
[2017-02-08] MEDS: LACTULOSE SYRUP 30 GM/45 ML UDP PO SCH ×2 (09:12→20:01)
[2017-02-08] MEDS: SPIRONOLACTONE 25 MG TAB PO SCH (09:12)
[2017-02-08] MEDS: LIDODERM (LIDOCAINE) PATCH 5% TD SCH (09:15)
[2017-02-08 09:30] VITALS: BP 97/56
[2017-02-08 09:40] LABS: BUN/CREATININE RATIO 18.1 (10-20); CALCIUM 8.6 mg/dl (8.5-10.1); CREATININE 0.59 mg/dl (0.60-1.20); POTASSIUM 4.2 mmol/L (3.5-5.1)
--- NOTE | 2017-02-08 15:21 | Pharmacy Progress Note ---
Automatic IV to PO Conversion Date of Service: Feb 08, 2017. [facility] has identified patient as an appropriate candidate for automatic intravenous to oral conversion. Eligible medication: Protonix 40mg IV every 12 hours. Day # 4 of IV therapy. Subjective The patient is a 52 year old female admitted on Feb 02, 2017 at 23:32 for Cirrhosis, Alcoholic; Hyponatremia; Syncope Collap. Objective Vital Signs: Vital Signs Past 12 Hours Date Time Temp Pulse Resp B/P (MAP) Pulse Ox O2 Delivery O2 Flow Rate FiO2 02/08/17 09:30 97/56 (70) 02/08/17 09:15 Room Air 2.0 Nasal Cannula 02/08/17 07:27 36.8 69 16 100/59 (73) 97 2.0 White Blood Count: Test 02/08/17 05:29 White Blood Count 4.64 K/uL (4.8-10.8) Red Blood Count 2.90 M/uL (4.2-5.4) Hemoglobin 9.0 g/dL (12.0-16.0) Hematocrit 26.3 % (37-47) Mean Corpuscular Volume 90.7 fL (80-100) Mean Corpuscular Hemoglobin 31.0 pg (25-34) Mean Corpuscular Hemoglobin Concent 34.2 g/dl (32-36) Platelet Count 50 K/uL (130-400) Mean Platelet Volume 10.7 fL (7.4-10.4) Neutrophils (%) (Auto) 66.7 % Lymphocytes (%) (Auto) 21.6 % Monocytes (%) (Auto) 10.3 % Eosinophils (%) (Auto) 0.6 % Basophils (%) (Auto) 0.4 % Neutrophils # (Auto) 3.09 K/uL (1.4-6.5) Lymphocytes # (Auto) 1.00 K/uL (1.2-3.4) Monocytes # (Auto) 0.48 K/uL (0.11-0.59) Eosinophils # (Auto) 0.03 K/uL (0-0.5) Basophils # (Auto) 0.02 K/uL (0-0.2) Height (Feet): 5 Height (Inches): 5.00 Weight (Kilograms): 84.000 Assessment & Plan [employer] [place] [employer] recommend conversion to oral therapy once a patient is determined to be clinically stable and are able to tolerate oral medications. Patient identified as appropriate candidate for IV to PO conversion of Protonix based on the following criteria: * Receiving oral medications and/or tolerating oral diet for greater than 24 hours * Patient does not meet criteria for use of intravenous proton pump inhibitors ( negative for GI bleed, hypersecretory conditions, GERD associated with erosive esophagitis & unable to take PO) Automatic conversion to: Protonix 40mg PO every 12 hours
[2017-02-08 15:39] VITALS: BP 101/64; PULSE 70; TEMP 36.8; O2SAT 96
--- NOTE | 2017-02-08 17:31 | Progress Note ---
Internal Med Progress Note Date of Service: Feb 08, 2017. Provider Documentation: SUBJECTIVE: resting comfortably wants to ambulate had one bowel movement afebrile OBJECTIVE: Vital Signs-as noted below Exam: General-alert and oriented. Not in distress ENT-normal hearing Neck-no neck masses Lungs-cta b/l no wheezing or crackles Heart-s1 and s2 heard regular rhythm no murmurs Abdomen-soft bowel sounds present mild Luq tender mild distension Extremities-no edema no erythema skin spider nevi seen Neuro-alert and oriented moves extremities Lab data as noted below. ASSESSMENT & PLAN: Hyponatremia secondary to cirrhosis Na slowly improving Nephro consulted given Albumin, Lasix, IV fluids continue to monitor currently on fluid restriction 1500ml/day and lasix 40mg daily NA 128 today increased Lasix and restarted Aldactone at lower dose started on midodrine to keep BP up- so patient can ge given diuretics will d/w nephrology Syncope and collapse, likely secondary to hyponatremia, hypotension to correct Na Will monitor BP started on midodrine pt/ot Left upper Quadrant pain,likely secondary to gastritis/stretching of the splenic capsule vs. rib fracture s/p paracentesis Tramadol PRN Lidoderm patch Cirrhosis of liver secondary to alcohol abuse. Alcoholic Hepatitis? Discriminant Function score: 17 last drink was last Saturday as per patient Bilirubin increasing compared to last admission platelets also decreasing, no signs of bleeding at this time Ammonia elevated no signs of encephalopathy On Lactulose monitor GI on board held home diuretics and restarted Lasix at 40mg daily. currently on Lasix 40mg bid and Aldactone 25mg daily f/u ammonia levels- 55 today Strong advice for alcohol cessation- Needs to go to rehab but patient wants to go home Thrombocytopenia Plt in 40's no signs of bleeding Esophageal varices no signs of bleeding On Protonix IV BID Deep venous thrombosis prophylaxis. heparin/Lovenox contraindicated due to thrombocytopenia Code status -- full code. Dispo usually lives at home PT/OT prior to discharge social service for d/c planning Vital Signs: Date Time Temp Pulse Resp B/P (MAP) Pulse Ox O2 Delivery O2 Flow Rate FiO2 02/08/17 15:39 36.8 70 18 101/64 (76) 96 Nasal Cannula 2.0 02/08/17 09:30 97/56 (70) 02/08/17 09:15 Room Air 2.0 Nasal Cannula 02/08/17 07:27 36.8 69 16 100/59 (73) 97 2.0 02/08/17 00:04 36.5 69 18 91/52 (65) 98 2.0 02/08/17 00:00 Room Air Lab Results: Results Past 24 Hours Test 02/08/17 05:29 02/08/17 08:34 Range/Units White Blood Count 4.64 4.8-10.8 K/uL Red Blood Count 2.90 4.2-5.4 M/uL Hemoglobin 9.0 12.0-16.0 g/dL Hematocrit 26.3 37-47 % Mean Corpuscular Volume 90.7 80-100 fL Mean Corpuscular Hemoglobin 31.0 25-34 pg Mean Corpuscular Hemoglobin Concent 34.2 32-36 g/dl Platelet Count 50 130-400 K/uL Mean Platelet Volume 10.7 7.4-10.4 fL Neutrophils (%) (Auto) 66.7 % Lymphocytes (%) (Auto) 21.6 % Monocytes (%) (Auto) 10.3 % Eosinophils (%) (Auto) 0.6 % Basophils (%) (Auto) 0.4 % Neutrophils # (Auto) 3.09 1.4-6.5 K/uL Lymphocytes # (Auto) 1.00 1.2-3.4 K/uL Monocytes # (Auto) 0.48 0.11-0.59 K/uL Eosinophils # (Auto) 0.03 0-0.5 K/uL Basophils # (Auto) 0.02 0-0.2 K/uL RDW Standard Deviation 62.1 36.4-46.3 fL RDW Coefficient of Variation 18.9 11.5-14.5 % Immature Granulocyte % (Auto) 0.4 % Immature Granulocyte # (Auto) 0.02 0.00-0.02 K/uL Platelet Estimate DECREASED Giant Platelets 1+ Anisocytosis PRESENT Echinocytes 1+ Total Bilirubin 3.5 0.2-1 mg/dl Direct Bilirubin 1.9 0-0.2 mg/dl Aspartate Amino Transf (AST/SGOT) 46 15-37 U/L Alanine Aminotransferase (ALT/SGPT) 19 12-78 U/L Alkaline Phosphatase 194 45-117 U/L Total Protein 5.8 6.4-8.2 gm/dl Albumin 2.8 3.4-5.0 gm/dl Sodium Level 128 136-145 mmol/L Potassium Level 4.2 3.5-5.1 mmol/L Chloride Level 97 98-107 mmol/L Carbon Dioxide Level 25 21-32 mmol/L Anion Gap 6.0 3-11 mmol/L Blood Urea Nitrogen 11 7-18 mg/dl Creatinine 0.59 0.60-1.20 mg/dl Est Creatinine Clear Calc Drug Dose 116.7 ml/min Estimated GFR () 120.4 Estimated GFR (Non- 103.9 BUN/Creatinine Ratio 18.1 10-20 Random Glucose 99 70-99 mg/dl Calcium Level 8.6 8.5-10.1 mg/dl
[2017-02-08] MEDS: LORAZEPAM 0.5 MG TAB PO PRN (20:00)
[2017-02-08] MEDS: THIAMINE HCL 100 MG TAB PO SCH (20:02)
[2017-02-08] MEDS: PANTOprazole SOD 40 MG TAB PO SCH (20:03)
[2017-02-08 23:44] VITALS: BP 103/59; PULSE 73; TEMP 36.7; O2SAT 95
[2017-02-09 07:29] VITALS: BP 95/53; PULSE 59; TEMP 36.5; O2SAT 97
[2017-02-09] MEDS: PANTOprazole SOD 40 MG TAB PO SCH ×2 (08:36→20:39)
[2017-02-09] MEDS: LORAZEPAM 0.5 MG TAB PO PRN ×2 (08:36→20:39)
[2017-02-09] MEDS: TRAMADOL HCL 50 MG TAB PO PRN ×2 (08:37→20:39)
[2017-02-09] MEDS: MIDODRINE 2.5 MG TAB PO SCH ×3 (08:39→17:25)
[2017-02-09] MEDS: FUROSEMIDE 40 MG TAB PO SCH ×2 (08:39→17:25)
[2017-02-09] MEDS: ESCITALOPRAM OXALATE 10 MG TAB PO SCH (08:39)
[2017-02-09] MEDS: LACTULOSE SYRUP 30 GM/45 ML UDP PO SCH ×2 (08:40→20:39)
[2017-02-09] MEDS: LIDODERM (LIDOCAINE) PATCH 5% TD SCH (08:40)
[2017-02-09] MEDS: SPIRONOLACTONE 25 MG TAB PO SCH (08:44)
[2017-02-09 12:23] VITALS: BP 106/61; PULSE 77
[2017-02-09 15:21] VITALS: BP 97/59; PULSE 76; TEMP 36.9; O2SAT 96
--- NOTE | 2017-02-09 17:57 | Progress Note ---
Internal Med Progress Note Date of Service: Feb 09, 2017. Provider Documentation: SUBJECTIVE: resting comfortably no nausea eating ok wants to ambulate moved bowels today OBJECTIVE: Vital Signs-as noted below Exam: General-alert and oriented. Not in distress ENT-normal hearing Neck-no neck masses Lungs-cta b/l no wheezing or crackles Heart-s1 and s2 heard regular rhythm no murmurs Abdomen-soft bowel sounds present mild Luq tender mild distension Extremities-no edema no erythema skin spider nevi seen Neuro-alert and oriented moves extremities Lab data as noted below. ASSESSMENT & PLAN: Hyponatremia secondary to cirrhosis Na slowly improving Nephro consulted given Albumin, Lasix, IV fluids continue to monitor currently on fluid restriction 1500ml/day and lasix 40mg daily NA 128 increased Lasix and restarted Aldactone at lower dose started on midodrine to keep BP up- so patient can ge given diuretics f/u labs Syncope and collapse, likely secondary to hyponatremia, hypotension to correct Na Will monitor BP started on midodrine pt/ot Left upper Quadrant pain,likely secondary to gastritis/stretching of the splenic capsule vs. rib fracture s/p paracentesis Tramadol PRN Lidoderm patch Cirrhosis of liver secondary to alcohol abuse. Alcoholic Hepatitis? Discriminant Function score: 17 last drink was last Saturday prior to admission as per patient Bilirubin increasing compared to last admission platelets also decreasing, no signs of bleeding at this time Ammonia elevated no signs of encephalopathy On Lactulose monitor GI on board held home diuretics and restarted Lasix at 40mg daily. currently on Lasix 40mg bid and Aldactone 25mg daily Strong advice for alcohol cessation- Needs to go to rehab but patient wants to go home continue current meds Thrombocytopenia Plt in 40's no signs of bleeding Esophageal varices no signs of bleeding On Protonix BID Deep venous thrombosis prophylaxis. heparin/Lovenox contraindicated due to thrombocytopenia Code status -- full code. Dispo usually lives at home PT/OT prior to discharge possible d/c on Saturday social service for d/c planning Vital Signs: Date Time Temp Pulse Resp B/P (MAP) Pulse Ox O2 Delivery O2 Flow Rate FiO2 02/09/17 15:21 36.9 76 18 97/59 (72) 96 Room Air 02/09/17 15:03 Room Air 02/09/17 12:23 77 106/61 (76) 02/09/17 08:40 Room Air 02/09/17 07:29 36.5 59 16 95/53 (67) 97 Nasal Cannula 1.5 02/09/17 04:29 Nasal Cannula 2.0 02/09/17 00:48 Room Air 02/08/17 23:44 36.7 73 18 103/59 (74) 95 Room Air
[2017-02-09] MEDS: THIAMINE HCL 100 MG TAB PO SCH (20:39)
[2017-02-09 23:12] VITALS: BP 96/58; PULSE 71; TEMP 36.8; O2SAT 96
[2017-02-10 07:30] VITALS: BP 99/57; PULSE 75; TEMP 36.5; O2SAT 91
[2017-02-10] MEDS: ESCITALOPRAM OXALATE 10 MG TAB PO SCH (08:31)
[2017-02-10] MEDS: LACTULOSE SYRUP 30 GM/45 ML UDP PO SCH ×2 (08:31→21:16)
[2017-02-10] MEDS: PANTOprazole SOD 40 MG TAB PO SCH ×2 (08:31→21:16)
[2017-02-10] MEDS: MIDODRINE 2.5 MG TAB PO SCH ×3 (08:32→17:21)
[2017-02-10] MEDS: FUROSEMIDE 40 MG TAB PO SCH ×2 (08:32→17:20)
[2017-02-10] MEDS: SPIRONOLACTONE 25 MG TAB PO SCH (08:32)
[2017-02-10] MEDS: LIDODERM (LIDOCAINE) PATCH 5% TD SCH (08:32)
[2017-02-10] MEDS: LORAZEPAM 0.5 MG TAB PO PRN ×2 (08:34→21:16)
[2017-02-10] MEDS: TRAMADOL HCL 50 MG TAB PO PRN ×3 (08:34→21:16)
[2017-02-10 12:40] VITALS: BP 101/49; PULSE 85
--- NOTE | 2017-02-10 14:27 | Progress Note ---
Internal Med Progress Note Date of Service: Feb 10, 2017. Provider Documentation: SUBJECTIVE: slept ok had couple of bowel movements yesterday afebrile eating ok ambulated yesterday and want to try again today OBJECTIVE: Vital Signs-as noted below Exam: General-alert and oriented. Not in distress ENT-normal hearing Neck-no neck masses Lungs-cta b/l no wheezing or crackles Heart-s1 and s2 heard regular rhythm no murmurs Abdomen-soft bowel sounds present non tender mild distension Extremities-no edema no erythema skin spider nevi seen Neuro-alert and oriented moves extremities Lab data as noted below. ASSESSMENT & PLAN: Hyponatremia secondary to cirrhosis Na slowly improving Nephro consulted given Albumin, Lasix, IV fluids currently on fluid restriction 1500ml/day and lasix 40mg twice daily and Aldactone 25mg daily. NA 128 started on midodrine to keep BP up- so patient can ge given diuretics f/u labs Syncope and collapse, likely secondary to hyponatremia, hypotension to correct Na Will monitor BP started on midodrine seems stable pt/ot Left upper Quadrant pain,likely secondary to gastritis/stretching of the splenic capsule vs. rib fracture s/p paracentesis Tramadol PRN Lidoderm patch Cirrhosis of liver secondary to alcohol abuse. Alcoholic Hepatitis? Discriminant Function score: 17 last drink was last Saturday prior to admission as per patient Bilirubin increasing compared to last admission platelets also decreasing, no signs of bleeding at this time Ammonia elevated no signs of encephalopathy On Lactulose monitor GI on board held home diuretics and restarted Lasix 40mg bid and Aldactone 25mg daily Strong advice for alcohol cessation- Needs to go to rehab but patient wants to go home continue current meds Thrombocytopenia Plt in 40's no signs of bleeding Esophageal varices no signs of bleeding On Protonix BID Deep venous thrombosis prophylaxis. heparin/Lovenox contraindicated due to thrombocytopenia Code status -- full code. Dispo usually lives at home PT/OT prior to discharge possible d/c on Saturday social service for d/c planning Vital Signs: Date Time Temp Pulse Resp B/P (MAP) Pulse Ox O2 Delivery O2 Flow Rate FiO2 02/10/17 12:40 85 101/49 (66) 02/10/17 08:44 Room Air 02/10/17 07:30 36.5 75 99/57 (71) 91 02/10/17 00:27 Room Air 02/09/17 23:12 36.8 71 18 96/58 (71) 96 Nasal Cannula 2.0 02/09/17 19:43 Room Air 02/09/17 15:21 36.9 76 18 97/59 (72) 96 Room Air 02/09/17 15:03 Room Air
[2017-02-10 15:21] VITALS: BP 83/46; PULSE 74; TEMP 37; O2SAT 95
[2017-02-10 17:22] VITALS: BP 98/61; PULSE 73
[2017-02-10] MEDS: THIAMINE HCL 100 MG TAB PO SCH (21:15)
[2017-02-10 23:14] VITALS: BP 93/54; PULSE 74; TEMP 36.8; O2SAT 95
[2017-02-11 07:36] LABS: CREATININE 0.7 mg/dl (0.60-1.20); POTASSIUM 3.5 mmol/L (3.5-5.1)
[2017-02-11 07:39] LABS: ALB/GLOB RATIO 0.9 (0.9-2)
[2017-02-11 07:42] LABS: HEMATOCRIT 25.1 % (37-47); MEAN CELL VOLUME 90.9 fL (80-100); MEAN CORPUSCULAR HEMOGLOBIN 31.2 pg (25-34); MEAN CORPUSCULAR HGB CONC 34.3 g/dl (32-36); PLATELET COUNT 46 K/uL (130-400); RED BLOOD COUNT 2.76 M/uL (4.2-5.4); WHITE BLOOD COUNT 4.97 K/uL (4.8-10.8)
[2017-02-11 07:44] LABS: BASO % 0.4 %; BASO ABS # 0.02 K/uL (0-0.2); COMPLETE YES; IG% 0.2 %; LYMPH % 11.7 %; LYMPH ABS # 0.58 K/uL (1.2-3.4); MONO % 19.5 %; NEUT % 68.2 %
[2017-02-11 07:55] VITALS: BP 97/59; PULSE 73; TEMP 36.9; O2SAT 93
[2017-02-11] MEDS: ESCITALOPRAM OXALATE 10 MG TAB PO SCH (08:52)
[2017-02-11] MEDS: SPIRONOLACTONE 25 MG TAB PO SCH (08:52)
[2017-02-11] MEDS: LACTULOSE SYRUP 30 GM/45 ML UDP PO SCH (08:52)
[2017-02-11] MEDS: MIDODRINE 2.5 MG TAB PO SCH ×2 (08:52→12:13)
[2017-02-11] MEDS: TRAMADOL HCL 50 MG TAB PO PRN (08:53)
[2017-02-11] MEDS: FUROSEMIDE 40 MG TAB PO SCH (08:53)
[2017-02-11] MEDS: LORAZEPAM 0.5 MG TAB PO PRN (08:53)
[2017-02-11] MEDS: PANTOprazole SOD 40 MG TAB PO SCH (08:53)
[2017-02-11] MEDS: LIDODERM (LIDOCAINE) PATCH 5% TD SCH (09:42)
[2017-02-11] MEDS ORDERED: PRMT25 PO (12:24)
[2017-02-11] MEDS ORDERED: LSX40 PO (12:24)
[2017-02-11] MEDS ORDERED: MULTTAB PO (12:24)
[2017-02-11] MEDS ORDERED: LCTL45 PO (12:24)
[2017-02-11] MEDS ORDERED: SPR25 PO (12:24)
[2017-02-11] MEDS ORDERED: THM100 PO (12:24)
--- NOTE | 2017-02-11 12:26 | Discharge Instructions ---
Discharge Instructions Date of Service Feb 11, 2017. Admission Reason for Admission: Cirrhosis, Alcoholic; Hyponatremia; Syncope Collap Discharge Discharge Diagnosis / Problem: HYPONATREMIA, SYNCOPE, ALOCHOLISM Discharge Goals Goal(s): Decrease discomfort, Improve function Activity Recommendations Activity Limitations: resume your previous activity . Instructions / Follow-Up Instructions / Follow-Up FOLLOWUP WITH FAMILY DOCTOR ON January AT 8:45AM FOLLOWUP WITH GI IN 2-3 WEEKS. LAB: CBC AND CMP IN 5-7 DAYS AN FOLLOW RESULTS WITH FAMILY DOCTOR. Current Hospital Diet Patient's current hospital diet: Low Sodium Diet (2gm Na), Regular Diet Discharge Diet Recommended Diet: Low Sodium Diet (2gm Na) Fluid Restriction: 1500 ml (6 cups) Pending Studies Studies pending at discharge: no Medical Emergencies . Who to Call and When: Medical Emergencies: If at any time you feel your situation is an emergency, please call 911 immediately. . Non-Emergent Contact Non-Emergency issues call your: Primary Care Provider . . "Provider Documentation" section prepared by Pramod Sanabria. . VTE Core Measure Inpt VTE Proph given/why not?: SCD's
[2017-02-11 13:09] VITALS: BP 97/59; PULSE 73; TEMP 36.9; O2SAT 93
[2017-02-11] MEDS ORDERED: ONDA4TAB65 PO (13:44)
[2017-02-11] MEDS ORDERED: TRAM-10 PO (13:44)
--- NOTE | 2017-02-11 14:51 | Progress Note ---
Internal Med Progress Note Date of Service: Feb 11, 2017. Provider Documentation: SUBJECTIVE: ambulated ok no pain no nausea ok to go home OBJECTIVE: Vital Signs-as noted below Exam: General-alert and oriented. Not in distress ENT-normal hearing Neck-no neck masses Lungs-cta b/l no wheezing or crackles Heart-s1 and s2 heard regular rhythm no murmurs Abdomen-soft bowel sounds present non tender mild distension Extremities-no edema no erythema skin spider nevi seen Neuro-alert and oriented moves extremities Lab data as noted below. ASSESSMENT & PLAN: Hyponatremia secondary to cirrhosis Na slowly improving Nephro consulted given Albumin, Lasix, IV fluids currently on fluid restriction 1500ml/day and Lasix 40mg twice daily and Aldactone 25mg daily. NA 133 today started on midodrine to keep BP up- so patient can take diuretics f/u labs with pcp Syncope and collapse, likely secondary to hyponatremia, hypotension to correct Na Will monitor BP started on midodrine seems stable pt/ot Left upper Quadrant pain,likely secondary to gastritis/stretching of the splenic capsule vs. rib fracture s/p paracentesis Tramadol PRN Lidoderm patch Cirrhosis of liver secondary to alcohol abuse. Alcoholic Hepatitis? Discriminant Function score: 17 last drink was last Saturday prior to admission as per patient Bilirubin increasing compared to last admission platelets also decreasing, no signs of bleeding at this time Ammonia elevated no signs of encephalopathy On Lactulose monitor GI on board held home diuretics and restarted Lasix 40mg bid and Aldactone 25mg daily Strong advice for alcohol cessation- Needs to go to rehab but patient wants to go home continue current meds f/u with pcp and GI Thrombocytopenia Plt in 40's no signs of bleeding Esophageal varices no signs of bleeding On Protonix BID Discharged home with home health Vital Signs: Date Time Temp Pulse Resp B/P (MAP) Pulse Ox O2 Delivery O2 Flow Rate FiO2 02/11/17 13:09 36.9 73 18 93 Room Air 02/11/17 10:23 Room Air 02/11/17 07:55 36.9 73 18 97/59 (72) 93 Room Air 02/10/17 23:50 Room Air 02/10/17 23:14 36.8 74 18 93/54 (67) 95 Room Air 02/10/17 19:44 Room Air 02/10/17 17:22 73 98/61 (73) 02/10/17 15:41 Room Air 02/10/17 15:21 37.0 74 18 83/46 (58) 95 Room Air Lab Results: Results Past 24 Hours Test 02/11/17 06:47 Range/Units White Blood Count 4.97 4.8-10.8 K/uL Red Blood Count 2.76 4.2-5.4 M/uL Hemoglobin 8.6 12.0-16.0 g/dL Hematocrit 25.1 37-47 % Mean Corpuscular Volume 90.9 80-100 fL Mean Corpuscular Hemoglobin 31.2 25-34 pg Mean Corpuscular Hemoglobin Concent 34.3 32-36 g/dl Platelet Count 46 130-400 K/uL Mean Platelet Volume 12.0 7.4-10.4 fL Neutrophils (%) (Auto) 68.2 % Lymphocytes (%) (Auto) 11.7 % Monocytes (%) (Auto) 19.5 % Eosinophils (%) (Auto) 0.0 % Basophils (%) (Auto) 0.4 % Neutrophils # (Auto) 3.39 1.4-6.5 K/uL Lymphocytes # (Auto) 0.58 1.2-3.4 K/uL Monocytes # (Auto) 0.97 0.11-0.59 K/uL Eosinophils # (Auto) 0.00 0-0.5 K/uL Basophils # (Auto) 0.02 0-0.2 K/uL RDW Standard Deviation 63.7 36.4-46.3 fL RDW Coefficient of Variation 19.3 11.5-14.5 % Immature Granulocyte % (Auto) 0.2 % Immature Granulocyte # (Auto) 0.01 0.00-0.02 K/uL Sodium Level 133 136-145 mmol/L Potassium Level 3.5 3.5-5.1 mmol/L Chloride Level 98 98-107 mmol/L Carbon Dioxide Level 27 21-32 mmol/L Anion Gap 8.0 3-11 mmol/L Blood Urea Nitrogen 11 7-18 mg/dl Creatinine 0.70 0.60-1.20 mg/dl Est Creatinine Clear Calc Drug Dose 98.4 ml/min Estimated GFR () 113.8 Estimated GFR (Non- 98.2 BUN/Creatinine Ratio 15.0 10-20 Random Glucose 75 70-99 mg/dl Calcium Level 8.0 8.5-10.1 mg/dl Total Bilirubin 3.2 0.2-1 mg/dl Aspartate Amino Transf (AST/SGOT) 46 15-37 U/L Alanine Aminotransferase (ALT/SGPT) 19 12-78 U/L Alkaline Phosphatase 180 45-117 U/L Total Protein 5.3 6.4-8.2 gm/dl Albumin 2.5 3.4-5.0 gm/dl Globulin 2.8 2.5-4.0 gm/dl Albumin/Globulin Ratio 0.9 0.9-2
--- NOTE | 2017-02-11 15:16 | Discharge Summary ---
Discharge Summary Date of Service Feb 11, 2017. Discharge Summary Admission Date: Feb 02, 2017 at 23:32 Discharge Date: Feb 11, 2017 Discharge Disposition: Home with services Principal Diagnosis: ALCOHOLISM FALL/SYNCOPE HYPONATREMIA HYPOTENSION Secondary Diagnoses/Problems: alcoholic cirrhosis with history of hepatic encephalopathy, esophageal varices status, depression, hypotension, iron deficiency anemia and alcohol dependence Procedures: CT HEAD: No acute intracranial findings. CT ABD/PELVIS: 1. Cirrhosis with manifestations of portal hypertension including moderate ascites, mild splenomegaly and extensive varices formation. Suboptimal evaluation of the abdomen and pelvis given the lack of IV contrast. 2. Cholelithiasis. 3. Apparent gastric wall thickening. This is likely due to underdistention although gastritis could have this appearance. 4. No bowel obstruction. Normal appendix. PARACENTESIS: Ultrasound-guided therapeutic paracentesis with aspiration of 3.3 liters of ascites. 1 L of fluid was sent to the laboratory for further analysis. RIB/CHEST XRAY: 1. Nondisplaced fractures of the left third through sixth ribs. 2. Nondisplaced fracture right fourth and fifth ribs. 3. No evidence of pneumothorax. CERVICAL SPINE XRAY: Degenerative change. No acute process. Consultations: GI NEPHROLOGY Medication Reconciliation New Medications: Multivitamins/Minerals (Mvi With Minerals) Tab 1 TAB PO DAILY for 30 Days, TAB 2 Refills Ondansetron Hcl (Zofran) 4 Mg Tab 4 MG PO Q6 PRN for Nausea or Vomiting, #30 TAB Furosemide (Furosemide) 40 Mg Tab 40 MG PO BID17 for 30 Days, #60 TAB 2 Refills Lactulose (Lactulose) 30 Gm/45 Ml Syrp 45 ML PO UD for 30 Days, 2 Refills LACTULOSE 15-45ML PO 1-3 TIMES A DAY FOR 3-4 BOWEL MOVEMENTS A DAY Midodrine (Midodrine HCl) 2.5 Mg Tab 2.5 MG PO TID@08,12,17 for 30 Days, TAB 2 Refills Spironolactone (Spironolactone) 25 Mg Tab 25 MG PO QAM, #30 TAB 2 Refills Thiamine HCl (Vitamin B-1) 100 Mg Tab 100 MG PO Q24H, #30 TAB 1 Refill Changed Medications: Tramadol (Ultram) 50 Mg Tab 50 MG PO TID PRN for Pain, #30 TAB (Changed from: 100 MG; NEEDED) Continued Medications: Escitalopram (Lexapro) 10 Mg Tab 10 MG PO QAM Lorazepam (Ativan) 0.5 Mg Tab 0.5 MG PO BID PRN for Anxiety Pantoprazole (Protonix) 40 Mg Tab 40 MG PO BID Discontinued Medications: Furosemide (Lasix) 40 Mg Tab 80 MG PO BID Spironolactone (Aldactone) 100 Mg Tab 200 MG PO QAM Admission Information HPI (per Admitting provider): : She is a 52-year-old female with significant past medical history of alcoholic cirrhosis with history of hepatic encephalopathy, esophageal varices status, depression, hypotension, iron deficiency anemia and alcohol dependence, apparently has been complaining of left upper quadrant pain for the last 2 weeks. She was seen by Dr. Warner madsen on 2nd of this month. At that time, her sodium was low at 121 and also her AST was up. She continues to drink alcohol. She was complaining of abdominal pain and was prescribed Ultram for the pain control. She has been using Ultram, but the pain did not go away. She was coming to the ER this evening and from the cars in the parking lot to the door to the ER, she collapsed. Her daughter was with her. She did not have a significant injury, but no definite history of convulsions at this time. In the ER, she was hemodynamically stable. She was lethargic and weak and her sodium was noted to be 114 and from that point, she was admitted to telemetry unit for continuation of care. Physical Exam (per Admitting): GENERAL: On examination in the emergency room, she was drowsy but not confused. She was not having any acute distress. VITAL SIGNS: Temperature 36.6, pulse 64, blood pressure 92/42, and saturation 92% on room air. HEENT: Unremarkable. NECK: Supple. No JVD, no bruit. CHEST: Clear to auscultation bilaterally with decreased breath sound both bases. HEART: S1, S2 regular. ABDOMEN: Nondistended, soft, may have minimal amount of ascites and tenderness noted over upper quadrant mostly on the left side. Bowel sounds present. EXTREMITIES: 1+ edema bilaterally. MUSCULOSKELETAL SYSTEM: No acute arthritis in any joint. CENTRAL NERVOUS SYSTEM: She was alert, awake, oriented x3. Generally weak, but no focal sensory and/or motor deficit appreciated. Hospital Course Hyponatremia secondary to cirrhosis Na slowly improving Nephro consulted given Albumin, Lasix, IV fluids currently on fluid restriction 1500ml/day and Lasix 40mg twice daily and Aldactone 25mg daily. NA 133 today started on midodrine to keep BP up- so patient can take diuretics f/u labs with pcp Syncope and collapse, likely secondary to hyponatremia, hypotension to correct Na Will monitor BP started on midodrine seems stable pt/ot Left upper Quadrant pain,likely secondary to gastritis/stretching of the splenic capsule vs. rib fracture s/p paracentesis Tramadol PRN Lidoderm patch Cirrhosis of liver secondary to alcohol abuse. Alcoholic Hepatitis? Discriminant Function score: 17 last drink was last Saturday prior to admission as per patient Bilirubin increasing compared to last admission platelets also decreasing, no signs of bleeding at this time Ammonia elevated no signs of encephalopathy On Lactulose monitor GI on board held home diuretics and restarted Lasix 40mg bid and Aldactone 25mg daily Strong advice for alcohol cessation- Needs to go to rehab but patient wants to go home continue current meds f/u with pcp and GI Thrombocytopenia Plt in 40's no signs of bleeding Esophageal varices no signs of bleeding On Protonix BID Discharged home with home health Total time spent on discharge = 35MINUTES This includes examination of the patient, discharge planning, medication reconciliation, and communication with other providers. Discharge Instructions Discharge Instructions Date of Service Feb 11, 2017. Admission Reason for Admission: Cirrhosis, Alcoholic; Hyponatremia; Syncope Collap Discharge Discharge Diagnosis / Problem: HYPONATREMIA, SYNCOPE, ALOCHOLISM Discharge Goals Goal(s): Decrease discomfort, Improve function Activity Recommendations Activity Limitations: resume your previous activity . Instructions / Follow-Up Instructions / Follow-Up FOLLOWUP WITH FAMILY DOCTOR ON January AT 8:45AM FOLLOWUP WITH GI IN 2-3 WEEKS. LAB: CBC AND CMP IN 5-7 DAYS AN FOLLOW RESULTS WITH FAMILY DOCTOR. Current Hospital Diet Patient's current hospital diet: Low Sodium Diet (2gm Na), Regular Diet Discharge Diet Recommended Diet: Low Sodium Diet (2gm Na) Fluid Restriction: 1500 ml (6 cups) Pending Studies Studies pending at discharge: no Medical Emergencies . Who to Call and When: Medical Emergencies: If at any time you feel your situation is an emergency, please call 911 immediately. . Non-Emergent Contact Non-Emergency issues call your: Primary Care Provider . . "Provider Documentation" section prepared by Pramod Sanabria. . VTE Core Measure Inpt VTE Proph given/why not?: SCD's
[2017-03-12] MEDS ORDERED: SPR25 PO (20:57)
[2017-03-15] MEDS ORDERED: XFX550 PO (14:01)
[2017-03-15] MEDS ORDERED: ULT50X PO (15:00)
== END 2017-02-11 14:15 | disposition home or self-care (01) | DRG 641 ==
LOC: C.EDB 20:14 → C.2T 23:32 → ENRESERV 23:40 → C.4E 02-06 15:45
PROVIDERS: ADMIT Internal Medicine; ATTEND Internal Medicine
PROC: 0W9G3ZZ Drainage of Peritoneal Cavity, Percutaneous Approach (ICD-10-PCS; principal; 2017-02-04)
DX: E87.1 Hypo-osmolality and hyponatremia (principal); I85.00 Esophageal varices without bleeding; S22.43XA Multiple fractures of ribs, bilateral, initial encounter for closed fracture; F10.20 Alcohol dependence, uncomplicated; I95.9 Hypotension, unspecified; K70.31 Alcoholic cirrhosis of liver with ascites; F32.9 Major depressive disorder, single episode, unspecified; D50.9 Iron deficiency anemia, unspecified; R10.12 Left upper quadrant pain; D69.6 Thrombocytopenia, unspecified; Z87.891 Personal history of nicotine dependence; Z80.3 Family history of malignant neoplasm of breast; Z82.3 Family history of stroke; W18.39XA Other fall on same level, initial encounter; M50.30 Other cervical disc degeneration, unspecified cervical region

== ENCOUNTER 2017-02-22 17:39 | Inpatient (IN) | payer BC ==
[~2017-02-22] VITALS: Ht 165.1 cm; Wt 87.5 kg
[~2017-02-22 17:39] MED LIST changes: -DIPH25CA65 PO; +LCTL45 PO; -LSX/40 PO; +LSX40 PO; +MULTTAB PO; +ONDA4TAB65 PO; +PRMT25 PO; -SPIR100T PO; +SPR25 PO; +THM100 PO; +TRAM-10 PO
--- NOTE | 2017-02-22 18:02 | EMERGENCY ROOM VISIT NOTE ---
History Report prepared by Jackelin: Evelyn Danielle Under the Supervision of: Dr. Lavell Denson M.D. First contact with patient: 17:49 Chief Complaint: DIZZY Stated Complaint: DIZZYNESS,PAIN,WEAK,LOW BP Nursing Triage Summary: pt reports increased falls , dizzy unable to keep balance , denies NV . reports cont abdominal pain , pt reports multiple rib fx History of Present Illness The patient is a 52 year old female who presents to the Emergency Room with complaints of sudden dizziness beginning today. The patient also reports that she is confused but is unsure why. She reports going to her family doctor, Dr. Bauer, today who referred her to the ED for her dizziness. The patient also complains of increased swelling of her legs and a dry mouth. She states that she is on diuretics. The patient states that she was in the ED from February 02 to the because she had a seizure. She also states that she smokes 7 cigarettes per day and that she quit drinking alcohol 3 weeks ago when she was admitted in the ED. The patient reports that she has cirrhosis. Source of History: patient Onset: today Position: other (global) Quality: other (dizziness) Timing: other (sudden) Note: additional symptoms: confusion, dry mouth, swelling of legs Review of Systems All systems have been listed, reviewed, and are negative other than those previously mentioned. Please see Additional Medical History Sheet. Past Medical & Surgical Medical Problems: (1) AC ALCOHOLIC HEPATITIS (2) ALCOHOL CIRRHOSIS LIVER (3) Cirrhosis, alcoholic (4) Colitis (5) DEPRESSIVE DISORDER NEC (6) DUODENAL ULCER NOS (7) ESOPHAGEAL REFLUX (8) Esophageal varices (9) Syncope and collapse Family History Patient reports no known family medical history. Social History Smoking Status: Current Every Day Smoker Alcohol Use: heavy Drug Use: none, other Marital Status: Housing Status: lives with family Occupation Status: employed, other Current/Historical Medications Scheduled Escitalopram (Lexapro), 10 MG PO QAM Furosemide (Furosemide), 40 MG PO BID17 Lactulose (Lactulose), 45 ML PO UD Midodrine (Midodrine HCl), 2.5 MG PO TID@08,12,17 Multivitamins/Minerals (Mvi With Minerals), 1 TAB PO DAILY Pantoprazole (Protonix), 40 MG PO BID Spironolactone (Spironolactone), 25 MG PO QAM Thiamine HCl (Vitamin B-1), 100 MG PO Q24H Scheduled PRN Lorazepam (Ativan), 0.5 MG PO BID PRN for Anxiety Tramadol (Ultram), 50 MG PO TID PRN for Pain Allergies Coded Allergies: No Known Allergies (Verified , 02/22/17) Physical Exam Vital Signs Date Time Temp Pulse Resp B/P (MAP) Pulse Ox O2 Delivery O2 Flow Rate FiO2 02/22/17 19:34 83 18 103/50 94 Room Air 02/22/17 17:44 36.7 86 18 93/52 96 Room Air Physical Exam GENERAL: Patient awake, alert, oriented x 3. Slow to answer questions. Skin color has an orange tint. Patient follows commands. Patient does not appear toxic. Patient is adequately hydrated and well-nourished. SKIN: No erythema, pallor, cyanosis or rash HEENT: Normal head, pupils equal, reactive to light and accommodation. Oral cavity and posterior pharynx appear normal. Neck: Without adenopathy, no neck vein distention. LUNGS: Clear to auscultation. No wheezes, no rales, no rhonchi. HEART: No murmurs. No gallops. No rubs ABDOMEN: Distended with fluid. No masses, no rebound, no hepatomegaly or splenomegaly. EXTREMITIES: Bruise on right knee. Round bruise on right forearm. No signs of trauma. 3+ non-pitting pretibial and pedal edema. NEUROLOGIC: Cranial nerves II-XII within normal limits. No gross motor sensory function deficits. Medical Decision & Procedures ER Provider Diagnostic Interpretation: Radiology results as stated below per my review and radiologist interpretation: CHEST 2 VIEWS ROUTINE HISTORY: cirrhosis COMPARISON: Chest 02/07/2017. FINDINGS: No pneumothorax. Bibasilar linear densities favor subsegmental atelectasis. Progressive left basilar density which favors a small pleural effusion. This is best seen on the lateral view. Bilateral rib fractures are again noted.. The heart remains stable in size. The upper lung zones are clear. IMPRESSION: 1. Bilateral rib fractures are again noted. No pneumothorax. 2. Interval development of a small left pleural effusion. 3. Bibasilar linear densities persist and favor subsegmental atelectasis. Electronically signed by: Michael De Leon M.D. 02/22/2017 7:12 PM Dictated Date/Time: 02/22/2017 7:09 PM ASCITES-ABDOMEN LIMITED ULTRASOUND CLINICAL HISTORY: cirrhosis COMPARISON STUDY: Abdomen and pelvis CT 02/02/2017. FINDINGS: Nodular contour to the liver consistent with cirrhosis. Small to moderate amount of ascites present. This is similar to the prior study and is most pronounced within the perihepatic location. IMPRESSION: Small to moderate amount of ascites, unchanged. Electronically signed by: Michael De Leon M.D. 02/22/2017 7:34 PM Dictated Date/Time: 02/22/2017 7:33 PM Laboratory Results 02/22/17 18:20 Red Blood Count 3.08, Mean Corpuscular Volume 91.2, Mean Corpuscular Hemoglobin 31.2, Mean Corpuscular Hemoglobin Concent 34.2, Mean Platelet Volume 11.4, Neutrophils (%) (Auto) 74.5, Lymphocytes (%) (Auto) 18.3, Monocytes (%) (Auto) 3.7, Eosinophils (%) (Auto) 2.5, Basophils (%) (Auto) 0.6, Neutrophils # (Auto) 5.00, Lymphocytes # (Auto) 1.23, Monocytes # (Auto) 0.25, Eosinophils # (Auto) 0.17, Basophils # (Auto) 0.04 02/22/17 18:20 Test 02/22/17 18:20 02/22/17 18:30 02/22/17 19:46 White Blood Count 6.72 K/uL (4.8-10.8) Red Blood Count 3.08 M/uL (4.2-5.4) Hemoglobin 9.6 g/dL (12.0-16.0) Hematocrit 28.1 % (37-47) Mean Corpuscular Volume 91.2 fL (80-100) Mean Corpuscular Hemoglobin 31.2 pg (25-34) Mean Corpuscular Hemoglobin Concent 34.2 g/dl (32-36) Platelet Count 76 K/uL (130-400) Mean Platelet Volume 11.4 fL (7.4-10.4) Neutrophils (%) (Auto) 74.5 % Lymphocytes (%) (Auto) 18.3 % Monocytes (%) (Auto) 3.7 % Eosinophils (%) (Auto) 2.5 % Basophils (%) (Auto) 0.6 % Neutrophils # (Auto) 5.00 K/uL (1.4-6.5) Lymphocytes # (Auto) 1.23 K/uL (1.2-3.4) Monocytes # (Auto) 0.25 K/uL (0.11-0.59) Eosinophils # (Auto) 0.17 K/uL (0-0.5) Basophils # (Auto) 0.04 K/uL (0-0.2) RDW Standard Deviation 65.3 fL (36.4-46.3) RDW Coefficient of Variation 19.8 % (11.5-14.5) Immature Granulocyte % (Auto) 0.4 % Immature Granulocyte # (Auto) 0.03 K/uL (0.00-0.02) Platelet Estimate DECREASED Large Platelets 2+ Polychromasia 1+ Anisocytosis PRESENT Echinocytes 1+ Prothrombin Time 16.3 SECONDS (9.0-12.0) Prothromb Time International Ratio 1.5 (0.9-1.1) Activated Partial Thromboplast Time 41.7 SECONDS (21.0-31.0) Partial Thromboplastin Ratio 1.6 Anion Gap 9.0 mmol/L (3-11) Est Creatinine Clear Calc Drug Dose 67.0 ml/min Estimated GFR () 74.0 Estimated GFR (Non- 63.8 BUN/Creatinine Ratio 11.7 (10-20) Calcium Level 8.5 mg/dl (8.5-10.1) Magnesium Level 1.7 mg/dl (1.8-2.4) Total Bilirubin 5.3 mg/dl (0.2-1) Direct Bilirubin 3.1 mg/dl (0-0.2) Aspartate Amino Transf (AST/SGOT) 44 U/L (15-37) Alanine Aminotransferase (ALT/SGPT) 15 U/L (12-78) Alkaline Phosphatase 253 U/L (45-117) Troponin I < 0.015 ng/ml (0-0.045) Total Protein 5.9 gm/dl (6.4-8.2) Albumin 2.5 gm/dl (3.4-5.0) Globulin 3.4 gm/dl (2.5-4.0) Albumin/Globulin Ratio 0.7 (0.9-2) Lipase 174 U/L (73-393) Urine Color DK YELLOW Urine Appearance CLOUDY (CLEAR) Urine pH 5.5 (4.5-7.5) Urine Specific [place] 1.017 (1.000-1.030) Urine Protein NEG (NEG) Urine Glucose (UA) NEG (NEG) Urine Ketones NEG (NEG) Urine Occult Blood NEG (NEG) Urine Nitrite POS (NEG) Urine Bilirubin 1+ (NEG) Urine Urobilinogen NEG (NEG) Urine Leukocyte Esterase SMALL (NEG) Urine WBC (Auto) 5-10 /hpf (0-5) Urine RBC (Auto) 0-4 /hpf (0-4) Urine Hyaline Casts (Auto) 5-10 /lpf (0-5) Urine Epithelial Cells (Auto) >30 /lpf (0-5) Urine Bacteria (Auto) 1+ (NEG) Urine Yeast (Auto) PRESENT (NONE PRSENT) Ammonia 34.0 umol/L (11-32) Laboratory results as stated above per my review. Medications Administered Medications (Trade) Dose Ordered Sig/Betty Route Start Time Stop Time Status Last Admin Dose Admin Potassium Chloride (Klor-Con M10) 50 meq ONE STAT PO 02/22/17 21:12 02/22/17 21:13 DC 02/22/17 21:32 50 MEQ Sodium Chloride 500 ml @ 500 mls/hr Q1H STAT IV 02/22/17 21:13 02/22/17 22:12 DC 02/22/17 21:32 500 MLS/HR Thiamine HCl (Vitamin B-1 Inj) 100 mg NOW STAT IV 02/22/17 21:10 02/22/17 21:12 DC 02/22/17 21:32 100 MG ECG Indication: syncope Rate (beats per minute): 83 Rhythm: normal sinus Findings: no acute ischemic change, prolonged QT, no ectopy ED Course 2033: Discussed the patient's case with Dr. Fowler. The patient will be evaluated for further management. Medical Decision Nurses notes reviewed. Medical history sheet reviewed. Differential diagnosis includes but is not limited to: cirrhosis, hypotension, metabolic disorder, and anasarca. Multiple labs, EKG and imaging were obtained. Please see above. The patient has reaccumulated fluid in her abdomen despite a recent paracentesis. She has generalized anasarca. Sodium is extremely low. Bilirubin is significantly elevated. The patient will require further evaluation in the hospital. The patient may require another paracentesis. The case was discussed with the hospitalist. I also discussed care with the patient and her daughters. Medication Reconcilliation Current Medication List: was personally reviewed by me Blood Pressure Screening Patient's blood pressure: Low blood pressure Consults Time Called: 1999 Consulting Physician: Dr. Fowler[place] Returned Call: [phone] Discussed the patient's case with Dr. Fowler. The patient will be evaluated for further management. Impression Primary Impression: Cirrhosis Additional Impressions: Ascites Hyponatremia Hypokalemia Scribe Attestation The scribe's documentation has been prepared under my direction and personally reviewed by me in its entirety. I confirm that the note above accurately reflects all work, treatment, procedures, and medical decision making performed by me. Departure Information Dispostion Being Evaluated By Hospitalist Referrals No Doctor, Assigned (PCP) Patient Instructions My [facility] Problem Qualifiers
[2017-02-22 18:39] LABS: HEMATOCRIT 28.1 % (37-47); MEAN CELL VOLUME 91.2 fL (80-100); MEAN CORPUSCULAR HEMOGLOBIN 31.2 pg (25-34); MEAN CORPUSCULAR HGB CONC 34.2 g/dl (32-36); RED BLOOD COUNT 3.08 M/uL (4.2-5.4); WHITE BLOOD COUNT 6.72 K/uL (4.8-10.8)
[2017-02-22 18:51] LABS: INR 1.5 (0.9-1.1); PARTIAL THROMBOPLASTIN RATIO 1.6; PROTHROMBIN TIME (PATIENT) 16.3 SECONDS (9.0-12.0)
[2017-02-22 18:54] LABS: ALT/SGPT 15 U/L (12-78); BLOOD UREA NITROGEN 12 mg/dl (7-18); BUN/CREATININE RATIO 11.7 (10-20); CALCIUM 8.5 mg/dl (8.5-10.1); CARBON DIOXIDE 28 mmol/L (21-32); CHLORIDE 88 mmol/L (98-107); GLUCOSE 100 mg/dl (70-99); SODIUM 125 mmol/L (136-145)
[2017-02-22 19:00] LABS: ALB/GLOB RATIO 0.7 (0.9-2); ALKALINE PHOSPHATASE 253 U/L (45-117); AST/SGOT 44 U/L (15-37)
[2017-02-22 19:01] LABS: MEAN PLATELET VOLUME 11.4 fL (7.4-10.4); PLATELET COUNT 76 K/uL (130-400)
[2017-02-22 19:02] LABS: URINE APPEARANCE CLOUDY (CLEAR); URINE COLOR DK YELLOW; URINE EPITHELIAL CELL AUTO >30 /lpf (0-5); URINE NITRITE POS (NEG); URINE PH 5.5 (4.5-7.5); URINE SPECIFIC GRAVITY 1.017 (1.000-1.030); UROBILINOGEN NEG (NEG); ZZUR CULT IF INDIC CLEAN CATCH YES
[2017-02-22 19:02] LABS: ANISOCYTOSIS PRESENT; BASO % 0.6 %; BASO ABS # 0.04 K/uL (0-0.2); COMPLETE YES; ECHINOCYTES 1+; EOS % 2.5 %; IG% 0.4 %; LARGE PLATELETS 2+; LYMPH % 18.3 %; LYMPH ABS # 1.23 K/uL (1.2-3.4); MONO % 3.7 %; NEUT % 74.5 %; PLT ESTIMATE DECREASED; POLYCHROMASIA 1+
[2017-02-22 19:05] LABS: MANUAL MICROSCOPIC REQUIRED? NO; REVIEW REQ? YES; URINE BILIRUBIN 1+ (NEG)
--- NOTE | 2017-02-22 19:14 | DIAGNOSTIC IMAGING REPORT ---
CHEST 2 VIEWS ROUTINE HISTORY: cirrhosis COMPARISON: Chest 02/07/2017. FINDINGS: No pneumothorax. Bibasilar linear densities favor subsegmental atelectasis. Progressive left basilar density which favors a small pleural effusion. This is best seen on the lateral view. Bilateral rib fractures are again noted.. The heart remains stable in size. The upper lung zones are clear. IMPRESSION: 1. Bilateral rib fractures are again noted. No pneumothorax. 2. Interval development of a small left pleural effusion. 3. Bibasilar linear densities persist and favor subsegmental atelectasis. Electronically signed by: Michael De Leon M.D. 02/22/2017 7:12 PM Dictated Date/Time: 02/22/2017 7:09 PM
--- NOTE | 2017-02-22 19:36 | DIAGNOSTIC IMAGING REPORT ---
ASCITES-ABDOMEN LIMITED ULTRASOUND CLINICAL HISTORY: cirrhosis COMPARISON STUDY: Abdomen and pelvis CT 02/02/2017. FINDINGS: Nodular contour to the liver consistent with cirrhosis. Small to moderate amount of ascites present. This is similar to the prior study and is most pronounced within the perihepatic location. IMPRESSION: Small to moderate amount of ascites, unchanged. Electronically signed by: Michael De Leon M.D. 02/22/2017 7:34 PM Dictated Date/Time: 02/22/2017 7:33 PM
[2017-02-22] MEDS ORDERED: THIAMINE HCL 100 MG/ML 2 ML VIAL IV STA (21:10)
[2017-02-22] MEDS ORDERED: POTASSIUM CHLORIDE 10 MEQ TABCR PO STA (21:12)
[2017-02-22] MEDS ORDERED: SODIUM CHLORIDE 0.9% 500ML 500 ML IV STA (21:13)
[2017-02-22 22:00] VITALS: BP 99/49; PULSE 80; TEMP 36.7; O2SAT 96; Ht 165.1 cm; Wt 87.5 kg
[2017-02-22] MEDS ORDERED: ACETAMINOPHEN 325 MG TAB PO PRN (22:15)
[2017-02-22] MEDS ORDERED: ONDANSETRON INJ 2 MG/ML 2 ML VIAL IV PRN (22:15)
[2017-02-22] MEDS ORDERED: MAGNESIUM SULFATE 1GM / D5W 1 GM in PREMIXED IN D5W 100 ML IV ONE (22:30)
[2017-02-22] MEDS ORDERED: MIDODRINE 2.5 MG TAB PO ONE (22:39)
[2017-02-22] MEDS ORDERED: LACTULOSE SYRUP 10 GM/15 ML BTL 473 ML PO ONE (22:45)
[2017-02-22] MEDS ORDERED: OPTIRAY 320 IV PRN (22:45)
[2017-02-22] MEDS ORDERED: CEFTRIAXONE SOD INJ 1 GM in DEXTROSE 5% ADD-VANTAGE 50ML 50 ML IV SCH (23:00)
[2017-02-23] VITALS (8 sets, daily range): BP systolic 90–112; BP diastolic 42–54; PULSE 77–89; TEMP 36.4–37; O2SAT 92–95
[2017-02-23] MEDS: ALBUMIN HUMAN 25% 12.5 GM/50 ML VIAL IV SCH ×5 (00:14→23:00)
--- NOTE | 2017-02-23 00:18 | HISTORY & PHYSICAL EXAMINATION ---
DATE OF ADMISSION: 02/22/2017 PRIMARY CARE DOCTOR: Dr. Hylton. CHIEF COMPLAINT: Dizziness, weakness, blood pressure low, chest pain, abdominal pain, shortness of breath, and worsening swelling. HISTORY OF PRESENT ILLNESS: History obtained from patient and records. Medical history significant for alcoholic cirrhosis, past alcohol abuse, ongoing tobacco abuse, history of esophageal varices, mood disorder; chronic anemia (baseline hemoglobin of 9-10), chronic hyponatremia, diverticulosis. Recent confinement about 2 weeks ago for hyponatremia secondary to cirrhosis. Patient was seen by Nephrology. Placed on fluid restriction and diuretic treatment. Patient also started on Midodrine for orthostatic hypotension. Patient also complaining of left upper quadrant pain that time. Underwent paracentesis - transudative fluid on analysis. Patient discharged home. As per patient in the last week increasing abd distention, nicole leg swelling, increasing pleuritic chest pain, shortness of breath. No unusual cough symptoms. Patient dizzy. No black no bloody stools. No emesis. Denies dysuria but urine smells funny, according to her. Patient feels confused. Patient seen at PCP's office complaining of fatigue and fluid retention. Advised to continue home diuretics. Px claims to be compliant with medications. Patient returned to PCP's office today. Blood pressure was noted to be low. Patient was brought to the ER because of worsening symptoms. MEDICAL HISTORY: As above. SURGERIES: Bilateral tubal ligation. HOME MEDICATIONS: Include Lexapro, Ativan, Protonix, midodrine, multivitamins, tramadol, furosemide, lactulose, spironolactone and thiamine. ALLERGIES: No known drug allergies. FAMILY HISTORY: Stroke and breast cancer. PERSONAL AND SOCIAL HISTORY: A few cigarettes a day, quit drinking last month. Currently unemployed. REVIEW OF SYSTEMS: As per HPI, all other ROS negative. PHYSICAL EXAMINATION: VITAL SIGNS: Blood pressure was noted to be 92/52, pulse rate 86, RR 18, temperature 36.7, sats 96% on room air. GENERAL: Noted to be slightly anxious, no respiratory distress. SKIN: Pallor. Spider angiomata. HEENT: Pale palpebral conjunctivae, dry mucosa. NECK: Short. CHEST: Decreased breath sounds. HEART: Regular rate and rhythm. ABDOMEN: Distention, epigastric tenderness. EXTREMITIES: Bilateral lower extremity edema, no tenderness. NEUROLOGIC: No gross focality. LABS: Hemoglobin was noted to be 9.6, hematocrit 28, white cells 6.7, platelets 76. Sodium noted to be 125, potassium 3, chloride 88, CO2 28, BUN 12, creatinine 1, glucose 100. AST 44, alk phos 253, lipase 174. IMAGING DATA: Chest x-ray showed bilateral rib fractures, chronic, no pneumothorax, small left pleural effusion, and atelectasis. Abdomen ultrasound showed small to moderate size, unchanged. Nitrite positive urine. ASSESSMENT: 1. Acute on chronic hyponatremia decompensated cirrhosis. 2. Painful ascites, possible SBP 3. Urinary tract infection, no sepsis. 4. Chest pain. shortness of breath possibly from Old rib fractures rule out pulmonary embolism 5. Lower extremity swelling secondary to decompensated cirrhosis Rule out DVT Past alcohol abuse. 6. Orthostatic hypotension on Midodrine. Patient still hypotensive on current regimen dose. Patient symptomatic at SBP 90s. 7. Ongoing tobacco abuse. 8. Hypokalemia secondary to diuretic therapy PLAN: PCU monitor sodium Fluid restriction, continue diuretic therapy. Replace K, check mag Nephrology consult. RE acute on chronic hyponatremia ff urine CS, IV Ceftriaxone for possible UTI IV albumin for possible SBP, diagnostic/therapeutic paracentesis GI consult. Painful ascites, decompensated cirrhosis CT chest, PE study. RE pleuritic chest pain, SOB Lower extremity venous Dopplers rule out DVT Increase Midodrine dose to 5 mg by mouth 3 times a day Nutrition consult as per patient request RE home dietary advice for cirrhotic patient PT/OT eval. Patient counseled to stop smoking. DVT prophylaxis, SCDs. RE thrombocytopenia Full code. MTDD
[2017-02-23] MEDS ORDERED: FUROSEMIDE INJ 40 MG in SYRINGE 0 ML IV ONE ×2 (00:45→05:15)
[2017-02-23] MEDS: TRAMADOL HCL 50 MG TAB PO PRN ×3 (02:36→21:04)
--- NOTE | 2017-02-23 05:09 | DIAGNOSTIC IMAGING REPORT ---
(CHEST FOR PE) ANGIO WITH CLINICAL HISTORY: 52 years-old Female presenting with chest pain, shortness of breath, clinical concern for pulmonary embolus. TECHNIQUE: Multidetector CT angiography of the chest was performed after administration of intravenous contrast. 3-D volumetric and maximum intensity projection (MIP) images were subsequently reconstructed for review. IV contrast: 83 mL of Optiray 320. A dose lowering technique was used consistent with the principles of ALARA (as low as reasonably achievable). COMPARISON: 07/06/2014. CT DOSE (mGy.cm): The estimated cumulative dose is 288.02 mGy.cm. FINDINGS: [employer] topogram: Unremarkable. Pulmonary vasculature: The study is suboptimal for assessment of the pulmonary vascular tree secondary to delayed acquisition relative to the phase of contrast. No central filling defect to suggest pulmonary embolus. Main pulmonary artery not enlarged. No flattening of the interventricular septum. No intracardiac filling defect. Remaining chest: On soft tissue windows, subcentimeter right thyroid nodule aerated No axillary, supraclavicular, hilar, or mediastinal lymphadenopathy. Atherosclerosis of the thoracic aorta results and luminal contour irregularity descending portion. Normal heart size. Moderate left pleural effusion. No pericardial effusion. Cirrhotic morphology of the liver. Moderate amount of ascites in the upper abdomen. Infiltration of the omentum, nonspecific in the setting of ascites. On lung windows, dependent consolidation with lower lobe volume loss, likely passive atelectasis. Small blebs noted. No other focal infiltrate. Airways patent. On bone windows, deformities of several ribs suggest old fracture. IMPRESSION: 1. No evidence of central pulmonary embolus allowing for suboptimal image quality. 2. Moderate left pleural effusion with bibasilar atelectasis. 3. Cirrhosis with moderate ascites. Electronically signed by: Som Moore M.D. 02/23/2017 5:07 AM Dictated Date/Time: 02/23/2017 4:59 AM
--- NOTE | 2017-02-23 05:44 | DIAGNOSTIC IMAGING REPORT ---
VENOUS DOPPLER LWR EXT BILA CLINICAL HISTORY: 52 years-old Female presenting with leg swelling. TECHNIQUE: Real-time grayscale and color and spectral Doppler ultrasound imaging of the veins of the bilateral lower extremities was performed. Compression and augmentation were also utilized. COMPARISON: None. FINDINGS: Right: Common femoral vein: Patent. Femoral vein: Patent. Greater saphenous vein: Patent. Popliteal vein: Patent. Calf veins: Patent. Left: Common femoral vein: Patent. Femoral vein: Patent. Greater saphenous vein: Patent. Popliteal vein: Patent. Calf veins: Patent. Other: Subcutaneous edema noted in the lower legs bilaterally. IMPRESSION: No evidence of deep venous thrombosis. Electronically signed by: Som Moore M.D. 02/23/2017 5:42 AM Dictated Date/Time: 02/23/2017 5:41 AM
[2017-02-23 05:53] LABS: MEAN CORPUSCULAR HGB CONC 34.6 g/dl (32-36)
[2017-02-23 06:18] LABS: BLOOD UREA NITROGEN 12 mg/dl (7-18); BUN/CREATININE RATIO 11.8 (10-20); CALCIUM 8.5 mg/dl (8.5-10.1); CARBON DIOXIDE 26 mmol/L (21-32); CHLORIDE 90 mmol/L (98-107); GLUCOSE 85 mg/dl (70-99); HEMATOCRIT 25.4 % (37-47); MEAN CELL VOLUME 90.4 fL (80-100); MEAN CORPUSCULAR HEMOGLOBIN 31.3 pg (25-34); POTASSIUM 3.3 mmol/L (3.5-5.1); RED BLOOD COUNT 2.81 M/uL (4.2-5.4); SODIUM 125 mmol/L (136-145)
[2017-02-23 06:52] LABS: PLATELET COUNT 75 K/uL (130-400)
[2017-02-23 06:56] LABS: ANISOCYTOSIS PRESENT; BASO % 0.8 %; BASO ABS # 0.05 K/uL (0-0.2); COMPLETE YES; ECHINOCYTES 1+; EOS % 0.2 %; IG% 0.3 %; LARGE PLATELETS 2+; LYMPH % 8.9 %; LYMPH ABS # 0.59 K/uL (1.2-3.4); NEUT % 64.8 %; PLT ESTIMATE DECREASED
[2017-02-23] MEDS ORDERED: MIDODRINE 2.5 MG TAB PO SCH (08:00)
[2017-02-23] MEDS ORDERED: LACTULOSE SYRUP 20 GM/30 ML UDC PO SCH (09:00)
[2017-02-23] MEDS ORDERED: LACTULOSE SYRUP 10 GM/15 ML BTL 473 ML PO SCH (09:00)
[2017-02-23] MEDS: THIAMINE HCL 100 MG TAB PO SCH (09:22)
[2017-02-23] MEDS: PANTOprazole SOD 40 MG TAB PO SCH ×2 (09:22→21:03)
[2017-02-23] MEDS: ESCITALOPRAM OXALATE 10 MG TAB PO SCH (09:22)
[2017-02-23] MEDS: SPIRONOLACTONE 25 MG TAB PO SCH (09:23)
[2017-02-23] MEDS: FUROSEMIDE 40 MG TAB PO SCH ×2 (09:23→17:12)
[2017-02-23] MEDS: CEROVITE ADV FORMULA TAB PO SCH (09:23)
[2017-02-23] MEDS: MIDODRINE 2.5 MG TAB PO SCH ×3 (09:23→17:12)
[2017-02-23] MEDS ORDERED: POTASSIUM CHLORIDE 20 MEQ TABCR PO ONE (10:00)
[2017-02-23] MEDS ORDERED: LACTULOSE SYRUP 30 GM/45 ML UDP PO ONE (13:00)
--- NOTE | 2017-02-23 15:44 | Progress Note ---
Internal Med Progress Note Date of Service: Feb 23, 2017. Provider Documentation: SUBJECTIVE: says feeling weak and tired afebrile somewhat drowsy but arousable no nausea has abdominal distension OBJECTIVE: Vital Signs-as noted below Exam: General-alert and oriented. Not in distress. ENT-normal hearing Neck-no neck masses Lungs-cta b/l no wheezing or crackles Heart-s1 and s2 heard regular rate and rhythm, no murmurs Abdomen-soft bowel sounds present mild diffuse tender distended Extremities lower extremity edema present no erythema Neuro-alert and oriented moves extremities Lab data as noted below. ASSESSMENT & PLAN: 1. Acute on chronic hyponatremia hx of cirrhosis continue current diuretics fluid restriction f/u labs consulted nephrology 2 Decompensated cirrhosis. Painful ascites, possible SBP low BP perclude increasing diuretics increased midodrine plan for paracentesis continue current diuretics for now' on Rocephin will f/u cx 3. Urinary tract infection, no sepsis. on Rocephin will f/u cx. 4. Chest pain. shortness of breath most likely Old rib fractures CTA chest no Pe - moderate rt pleural effusion 5. Lower extremity swelling secondary to decompensated cirrhosis No DVT. 6.Past alcohol abuse. 7. Orthostatic hypotension on Midodrine. increased midodrine to 5mg tid. 8. Ongoing tobacco abuse. DVT PROPHYLAXIS scds DISPOSITION monitor in tele to be determined Vital Signs: Date Time Temp Pulse Resp B/P (MAP) Pulse Ox O2 Delivery O2 Flow Rate FiO2 02/23/17 12:00 Room Air 02/23/17 11:56 36.6 83 16 91/46 (61) 95 Room Air 02/23/17 09:20 79 95/54 (68) 02/23/17 08:00 Room Air 02/23/17 07:55 36.4 86 16 90/50 (63) 93 Room Air 02/23/17 04:00 36.4 77 17 97/48 (64) 92 Room Air 02/23/17 04:00 Room Air 02/23/17 00:00 36.7 83 18 101/53 (69) 95 Room Air 02/22/17 23:59 Room Air 02/22/17 22:00 36.7 80 18 99/49 96 Room Air 02/22/17 21:43 83 18 99/49 96 02/22/17 21:31 83 18 99/49 96 Room Air 02/22/17 19:34 83 18 103/50 94 Room Air 02/22/17 17:44 36.7 86 18 93/52 96 Room Air Lab Results: Results Past 24 Hours Test 02/22/17 18:20 02/22/17 18:30 02/22/17 18:41 02/22/17 19:46 Range/Units White Blood Count 6.72 4.8-10.8 K/uL Red Blood Count 3.08 4.2-5.4 M/uL Hemoglobin 9.6 12.0-16.0 g/dL Hematocrit 28.1 37-47 % Mean Corpuscular Volume 91.2 80-100 fL Mean Corpuscular Hemoglobin 31.2 25-34 pg Mean Corpuscular Hemoglobin Concent 34.2 32-36 g/dl Platelet Count 76 130-400 K/uL Mean Platelet Volume 11.4 7.4-10.4 fL Neutrophils (%) (Auto) 74.5 % Lymphocytes (%) (Auto) 18.3 % Monocytes (%) (Auto) 3.7 % Eosinophils (%) (Auto) 2.5 % Basophils (%) (Auto) 0.6 % Neutrophils # (Auto) 5.00 1.4-6.5 K/uL Lymphocytes # (Auto) 1.23 1.2-3.4 K/uL Monocytes # (Auto) 0.25 0.11-0.59 K/uL Eosinophils # (Auto) 0.17 0-0.5 K/uL Basophils # (Auto) 0.04 0-0.2 K/uL RDW Standard Deviation 65.3 36.4-46.3 fL RDW Coefficient of Variation 19.8 11.5-14.5 % Immature Granulocyte % (Auto) 0.4 % Immature Granulocyte # (Auto) 0.03 0.00-0.02 K/uL Platelet Estimate DECREASED Large Platelets 2+ Polychromasia 1+ Anisocytosis PRESENT Echinocytes 1+ Prothrombin Time 16.3 9.0-12.0 SECONDS Prothromb Time International Ratio 1.5 0.9-1.1 Activated Partial Thromboplast Time 41.7 21.0-31.0 SECONDS Partial Thromboplastin Ratio 1.6 Sodium Level 125 136-145 mmol/L Potassium Level 3.0 3.5-5.1 mmol/L Chloride Level 88 98-107 mmol/L Carbon Dioxide Level 28 21-32 mmol/L Anion Gap 9.0 3-11 mmol/L Blood Urea Nitrogen 12 7-18 mg/dl Creatinine 1.00 0.60-1.20 mg/dl Est Creatinine Clear Calc Drug Dose 67.0 ml/min Estimated GFR () 74.0 Estimated GFR (Non- 63.8 BUN/Creatinine Ratio 11.7 10-20 Random Glucose 100 70-99 mg/dl Calcium Level 8.5 8.5-10.1 mg/dl Magnesium Level 1.7 1.8-2.4 mg/dl Total Bilirubin 5.3 0.2-1 mg/dl Direct Bilirubin 3.1 0-0.2 mg/dl Aspartate Amino Transf (AST/SGOT) 44 15-37 U/L Alanine Aminotransferase (ALT/SGPT) 15 12-78 U/L Alkaline Phosphatase 253 45-117 U/L Troponin I < 0.015 0-0.045 ng/ml Total Protein 5.9 6.4-8.2 gm/dl Albumin 2.5 3.4-5.0 gm/dl Globulin 3.4 2.5-4.0 gm/dl Albumin/Globulin Ratio 0.7 0.9-2 Lipase 174 73-393 U/L Urine Color DK YELLOW Urine Appearance CLOUDY CLEAR Urine pH 5.5 4.5-7.5 Urine Specific [place] 1.017 1.000-1.030 Urine Protein NEG NEG Urine Glucose (UA) NEG NEG Urine Ketones NEG NEG Urine Occult Blood NEG NEG Urine Nitrite POS NEG Urine Bilirubin 1+ NEG Urine Urobilinogen NEG NEG Urine Leukocyte Esterase SMALL NEG Urine WBC (Auto) 5-10 0-5 /hpf Urine RBC (Auto) 0-4 0-4 /hpf Urine Hyaline Casts (Auto) 5-10 0-5 /lpf Urine Epithelial Cells (Auto) >30 0-5 /lpf Urine Bacteria (Auto) 1+ NEG Urine Yeast (Auto) PRESENT NONE PRSENT Ethyl Alcohol mg/dL < 3.0 0-3 mg/dl Ammonia 34.0 11-32 umol/L Test 02/22/17 23:19 02/23/17 05:28 02/23/17 12:15 Range/Units Sodium Level 124 125 125 136-145 mmol/L Osmolality 250 280-300 mOsm/kg Lactic Acid Level 1.6 0.4-2.0 mmol/L White Blood Count 6.60 4.8-10.8 K/uL Red Blood Count 2.81 4.2-5.4 M/uL Hemoglobin 8.8 12.0-16.0 g/dL Hematocrit 25.4 37-47 % Mean Corpuscular Volume 90.4 80-100 fL Mean Corpuscular Hemoglobin 31.3 25-34 pg Mean Corpuscular Hemoglobin Concent 34.6 32-36 g/dl Platelet Count 75 130-400 K/uL Neutrophils (%) (Auto) 64.8 % Lymphocytes (%) (Auto) 8.9 % Monocytes (%) (Auto) 25.0 % Eosinophils (%) (Auto) 0.2 % Basophils (%) (Auto) 0.8 % Neutrophils # (Auto) 4.28 1.4-6.5 K/uL Lymphocytes # (Auto) 0.59 1.2-3.4 K/uL Monocytes # (Auto) 1.65 0.11-0.59 K/uL Eosinophils # (Auto) 0.01 0-0.5 K/uL Basophils # (Auto) 0.05 0-0.2 K/uL RDW Standard Deviation 63.7 36.4-46.3 fL RDW Coefficient of Variation 19.3 11.5-14.5 % Immature Granulocyte % (Auto) 0.3 % Immature Granulocyte # (Auto) 0.02 0.00-0.02 K/uL Platelet Estimate DECREASED Large Platelets 2+ Anisocytosis PRESENT Echinocytes 1+ Potassium Level 3.3 3.5-5.1 mmol/L Chloride Level 90 98-107 mmol/L Carbon Dioxide Level 26 21-32 mmol/L Anion Gap 9.0 3-11 mmol/L Blood Urea Nitrogen 12 7-18 mg/dl Creatinine 1.00 0.60-1.20 mg/dl Est Creatinine Clear Calc Drug Dose 29.6 ml/min Estimated GFR () 74.0 Estimated GFR (Non- 63.8 BUN/Creatinine Ratio 11.8 10-20 Random Glucose 85 70-99 mg/dl Calcium Level 8.5 8.5-10.1 mg/dl Magnesium Level 2.0 1.8-2.4 mg/dl Ammonia 59.0 11-32 umol/L Troponin I < 0.015 0-0.045 ng/ml Microbiology Results 02/22/17 Urine Culture - Preliminary, Resulted Staph Species
[2017-02-23] MEDS ORDERED: AMOXICILLIN/CLAVULANATE TAB 500 MG TAB PO SCH (16:45)
--- NOTE | 2017-02-23 23:03 | GASTROINTESTINAL CONSULTATION ---
DATE OF CONSULTATION: 02/23/2017 ATTENDING PHYSICIAN: Dr. Fowler. CONSULTING PHYSICIAN: Dr. Roca. REASON FOR CONSULTATION: Hyponatremia, alcohol-induced cirrhosis. HISTORY OF PRESENT ILLNESS: Lauren Licona is a 52-year-old female with an extensive past medical history that includes alcohol-induced cirrhosis, hepatic encephalopathy, history of esophageal varices, status post banding, and acute on chronic hyponatremia, who presented to the Department of Emergency Medicine on 02/22/2017 with complaints of dizziness and weakness. Upon arrival to the Department of Emergency Medicine, she was noted to have sodium of 125 with a potassium of 3.0, chloride of 88, BUN and creatinine of 12 and 1.0. Total bilirubin was noted to be 5.3 with a direct bilirubin of 3.1, AST of 44, ALT of 50 and an alkaline phosphatase of 235. Her troponin was normal. Her ammonia level was 34. Tox screen for alcohol was less than 3 and the patient states that she has not had any alcohol intake since 01/17/2017. Her H&H was 9.6 and 28.1. It should be noted that she was hospitalized from 02/02/2017 until 02/11/2017 with symptoms from her alcoholic cirrhosis. At the time of discharge, her H&H was 8.6 and 25.1 and her sodium at that time was 133. Her total bilirubin at that time was 3.2. Imaging studies from yesterday in the ER included a chest thorax CTA which was negative for PE, bilateral lower extremity Dopplers were negative, a right upper quadrant ultrasound showed small to moderate amount of ascites which was unchanged from her previous and a chest x-ray which showed bilateral rib fractures with no pneumothorax, interval development of small left pleural effusion and subsegmental atelectasis bilaterally. The patient was admitted. She was started on ceftriaxone 1 gram IV daily as well as morphine and Zofran p.r.n. to control symptoms. At the time that I saw the patient, she states that she was feeling slightly improved from when she came in, though still feels weak and does complain of some mild left upper quadrant abdominal pain rated as a 3/10 in intensity, nonradiating, without alleviating or exacerbating factors. She denies any hematemesis, melena, hematochezia, fevers, chills, nausea, vomiting. She has no further complaints. PAST MEDICAL HISTORY: Significant for alcohol-induced cirrhosis, hepatic encephalopathy, esophageal varices, status post banding, depression, hypotension, hyponatremia, iron deficiency anemia. PAST SURGICAL HISTORY: Includes . ALLERGIES: None. MEDICATIONS: At present, Lexapro 10 mg p.o. q.a.m., multivitamin 1 tab p.o. daily, Protonix 40 mg p.o. b.i.d., vitamin B 100 mg p.o. q.a.m., folic acid 1 mg p.o. q.a.m., lactulose 15 grams p.o. daily, Lasix 40 mg p.o. b.i.d., Aldactone 25 mg p.o. q.a.m., midodrine 5 mg p.o. t.i.d., ceftriaxone 1 gram IV daily, DuoNeb via nebulizer every 2 hours p.r.n. shortness of breath and wheezing, albumin 12.5 grams IV q. 6 hours, Tylenol 325 mg p.o. q. 6 p.r.n. pain or fever, Ativan 0.5 mg p.o. b.i.d. p.r.n. anxiety, Tramadol 50 mg p.o. q. 4 p.r.n. pain, Zofran 4 mg IV q. 6 p.r.n. nausea, morphine 2 mg IV q. 3 hours p.r.n. pain. SOCIAL HISTORY: She is a chronic alcohol abuser, her last drink was approximately 1 month ago. She smokes a pack of cigarettes daily and has a [id number] history. She denies illicit drug use. She is . FAMILY HISTORY: Negative for GI malignancy or inflammatory bowel disease. REVIEW OF SYSTEMS: Negative 10-system review other than pertinent positives listed in the HPI. PHYSICAL EXAMINATION: VITAL SIGNS: Include a temp of 36.4, pulse 79, respirations 16, blood pressure 95/54, pulse ox 93% on room air. GENERAL: She is chronic ill appearing, disheveled, in no acute distress. HEAD: Normocephalic, atraumatic. EYES: Pupils equally round. Extraocular muscles are intact. Sclerae are icteric. ENT: External evaluation of ears and nose is normal. Oropharynx is clear. NECK: Soft and supple. CHEST: Clear to auscultation bilaterally. CARDIOVASCULAR: Regular rate and rhythm. ABDOMEN: Soft, distended, positive fluid wave, positive bowel sounds, tenderness in the left upper quadrant. EXTREMITIES: No clubbing or cyanosis. No pitting edema. SKIN: Noted pallor. LABORATORY AND RADIOGRAPHIC STUDIES: Reviewed in the HPI. IMPRESSION: This is a 52-year-old female with alcohol-induced cirrhosis. PLAN: I would recommend continuing her on Protonix 40 mg b.i.d. I would also recommend 2-gram sodium diet. I would recommend lactulose 15 grams p.o. t.i.d. to titrate to a goal of 3-5 bowel movements daily to avoid encephalopathy. I would recommend fluid evaluation with ultrasound-guided paracentesis with fluid analysis for SBP, though it was normal on her last admission. I would also recommend consideration of discontinuing albumin therapy at this point as I am unsure of the indication for its use. If the patient has SBP, there is a clear mortality benefit in using this; however, if there is no evidence of SBP, I am not sure what we are using the albumin for at this point. I would defer this to the primary team. Once again, thanks for allowing me to participate in the care of this patient. If you have any further questions, please do not hesitate in contacting me.
[2017-02-24] VITALS (11 sets, daily range): BP systolic 96–112; BP diastolic 40–65; PULSE 86–95; TEMP 36.5–37.6; O2SAT 92–97
[2017-02-24] MEDS: ALBUMIN HUMAN 25% 12.5 GM/50 ML VIAL IV SCH ×4 (05:25→23:09)
[2017-02-24 06:46] LABS: HEMATOCRIT 24.3 % (37-47); MEAN CELL VOLUME 91.7 fL (80-100); MEAN CORPUSCULAR HEMOGLOBIN 30.9 pg (25-34); MEAN CORPUSCULAR HGB CONC 33.7 g/dl (32-36); RED BLOOD COUNT 2.65 M/uL (4.2-5.4); WHITE BLOOD COUNT 5.12 K/uL (4.8-10.8)
[2017-02-24 07:15] LABS: BUN/CREATININE RATIO 11.5 (10-20); CALCIUM 8.2 mg/dl (8.5-10.1); POTASSIUM 3.6 mmol/L (3.5-5.1)
[2017-02-24 07:19] LABS: MEAN PLATELET VOLUME 10.7 fL (7.4-10.4); PLATELET COUNT 75 K/uL (130-400)
[2017-02-24 07:20] LABS: ANISOCYTOSIS PRESENT; BASO ABS # 0.05 K/uL (0-0.2); COMPLETE YES; EOS % 3.9 %; GIANT PLATELETS 1+; IG% 0.4 %; LYMPH % 22.1 %; LYMPH ABS # 1.13 K/uL (1.2-3.4); MONO % 11.9 %; NEUT % 60.7 %; POIKILOCYTOSIS PRESENT
[2017-02-24 08:15] LABS: INR 1.5 (0.9-1.1); PROTHROMBIN TIME (PATIENT) 16.1 SECONDS (9.0-12.0)
[2017-02-24] MEDS: FUROSEMIDE 40 MG TAB PO SCH (08:41)
[2017-02-24] MEDS: ESCITALOPRAM OXALATE 10 MG TAB PO SCH (08:41)
[2017-02-24] MEDS: PANTOprazole SOD 40 MG TAB PO SCH ×2 (08:41→21:33)
[2017-02-24] MEDS: MIDODRINE 2.5 MG TAB PO SCH ×3 (08:42→18:23)
[2017-02-24] MEDS: THIAMINE HCL 100 MG TAB PO SCH (08:42)
[2017-02-24] MEDS: SPIRONOLACTONE 25 MG TAB PO SCH (08:42)
[2017-02-24] MEDS: CEROVITE ADV FORMULA TAB PO SCH (08:42)
[2017-02-24] MEDS: TRAMADOL HCL 50 MG TAB PO PRN ×4 (08:54→22:42)
[2017-02-24] MEDS: AMOXICILLIN/CLAVULANATE TAB 875 MG TAB PO SCH ×2 (08:59→18:21)
[2017-02-24] MEDS: LACTULOSE SYRUP 10 GM/15 ML BTL 473 ML PO SCH ×3 (09:32→21:00)
--- NOTE | 2017-02-24 11:05 | DIAGNOSTIC IMAGING REPORT ---
ULTRASOUND GUIDED DIAGNOSTIC AND THERAPEUTIC PARACENTESIS CLINICAL HISTORY: Laennec's Cirrhosis PROCEDURE: The risks, benefits, and alternatives to the procedure were discussed with the patient including the risk of bleeding, infection and injury to adjacent structures. The patient agreed to the procedure and informed written consent was obtained. Following real-time ultrasound localization, the skin of the left lower quadrant was prepped and draped. Following local anesthesia with Xylocaine, the sheath paracentesis needle was inserted and approximately 2.4 liters of straw-colored fluid was removed by vacuum suction. The patient tolerated the procedure well and no immediate complications were evident. IMPRESSION: Ultrasound-guided diagnostic and therapeutic paracentesis with removal of 2.4 liters of ascites. 1 L of ascites sent to the laboratory for analysis. Electronically signed by: Ruben Matos M.D. 02/24/2017 11:04 AM Dictated Date/Time: 02/24/2017 11:03 AM
[2017-02-24 12:43] LABS: PERIT FL WBC 167 /uL (0-300); PERITONEAL FLUID RBC < 3000 /uL
[2017-02-24 13:18] LABS: BUN/CREATININE RATIO 11.5 (10-20); CALCIUM 8.5 mg/dl (8.5-10.1); CREATININE 0.97 mg/dl (0.60-1.20); POTASSIUM 3.4 mmol/L (3.5-5.1)
[2017-02-24 14:34] LABS: URINE APPEARANCE CLOUDY (CLEAR); URINE BILIRUBIN NEG (NEG); URINE COLOR DK YELLOW; URINE NITRITE NEG (NEG); URINE SPECIFIC GRAVITY 1.017 (1.000-1.030); UROBILINOGEN NEG (NEG)
--- NOTE | 2017-02-24 15:10 | GASTROENTEROLOGY PROGRESS NOTE ---
DATE: 02/24/2017 SUBJECTIVE: Lauren Licona was seen at her bedside today. She states she was feeling better. She did undergo an ultrasound-guided paracentesis this morning. Studies revealed no evidence of SBP. I informed the patient of this fact. She denies any fevers, chills, nausea, vomiting, hematemesis, melena or hematochezia and has no further complaints. PHYSICAL EXAMINATION: VITAL SIGNS: Temp 36.8, pulse 86, respirations 16. Blood pressure 108/50. GENERAL: She is alert, oriented x3. Chronic ill appearing. CHEST: Clear to auscultation bilaterally. CARDIOVASCULAR SYSTEM: Regular rate and rhythm. ABDOMEN: Soft, distended, nontender, positive bowel sounds. LABORATORY STUDIES: Today include an H&H of 8.2 and 24.3. Her INR is 1.5. Sodium 129, potassium 3.4, chloride 95, bicarbonate 27, BUN 11, creatinine 0.97, blood glucose 111. IMPRESSION: A 52-year-old female with Laennec cirrhosis. PLAN: At the present time, there is no evidence of SBP. Would recommend continued abstinence from all alcohol as it is a known liver toxin and can worsen this patient's already end-stage liver disease. I would recommend titrating her lactulose 15 grams p.o. t.i.d. with a goal of 3-5 bowel movements daily. I would also recommend a 2 gram sodium-restricted diet and I would continue her on Protonix 40 mg p.o. b.i.d. I will follow her clinical course and make further recommendations as needed. Once again, thanks for allowing me to participate in the care of this patient. If you have any further questions, please do not hesitate in contacting me.
[2017-02-24 15:19] LABS: MANUAL MICROSCOPIC REQUIRED? YES; REVIEW REQ? NO
[2017-02-24 15:38] LABS: URINE RBC 0-4 /hpf (0-4)
[2017-02-24 15:39] LABS: URINE BACTERIA 1+ (NEG); URINE WBC >30 /hpf (0-5)
--- NOTE | 2017-02-24 17:08 | Progress Note ---
Internal Med Progress Note Date of Service: Feb 24, 2017. Provider Documentation: SUBJECTIVE: feeling better today afebrile no nausea ambulated ok moved bowels no sob OBJECTIVE: Vital Signs-as noted below Exam: General-alert and oriented. Not in distress. ENT-normal hearing Neck-no neck masses Lungs-cta b/l no wheezing or crackles Heart-s1 and s2 heard regular rate and rhythm, no murmurs Abdomen-soft bowel sounds present mild diffuse tender distended Extremities lower extremity edema present no erythema Neuro-alert and oriented moves extremities Lab data as noted below. ASSESSMENT & PLAN: 1. Acute on chronic hyponatremia hx of cirrhosis continue current diuretics- nephrology changed Lasix to 60mg bid fluid restriction f/u labs consulted nephrology and appreciate inputs 2 Decompensated cirrhosis. Painful ascites, possible SBP low BP perclude increasing diuretics increased midodrine s/p paracentesis with 2.4lts taken out- no SBP diuretics as per nephrology 3. Urinary tract infection, no sepsis. on Augmentin f/u cx 4. Chest pain. shortness of breath most likely Old rib fractures CTA chest no Pe - moderate rt pleural effusion 5. Lower extremity swelling secondary to decompensated cirrhosis No DVT. 6.Past alcohol abuse. 7. Orthostatic hypotension on Midodrine. increased midodrine to 5mg tid.To monitor 8. Ongoing tobacco abuse. DVT PROPHYLAXIS scds DISPOSITION transfer to medical floor pt/ot to be determined Vital Signs: Date Time Temp Pulse Resp B/P (MAP) Pulse Ox O2 Delivery O2 Flow Rate FiO2 02/24/17 15:19 36.6 90 18 112/65 (81) 97 Room Air 02/24/17 14:09 91 92 02/24/17 12:54 36.8 86 16 108/50 (69) 02/24/17 12:00 Room Air 02/24/17 11:25 92 102/52 (69) 02/24/17 11:09 36.7 92 16 106/61 (76) 94 Room Air 02/24/17 08:19 36.8 95 16 96/40 (58) 94 Room Air 02/24/17 08:00 Room Air 02/24/17 04:00 Room Air 02/24/17 03:56 36.9 87 18 97/48 (64) 94 Room Air 02/23/17 23:59 Room Air 02/23/17 23:43 37.0 89 16 97/48 (64) 94 Room Air 02/23/17 20:00 Room Air 02/23/17 19:08 36.4 86 20 95/42 (59) 93 Room Air Lab Results: Results Past 24 Hours Test 02/23/17 17:49 02/24/17 06:26 02/24/17 07:38 02/24/17 11:00 Range/Units Sodium Level 127 128 136-145 mmol/L White Blood Count 5.12 4.8-10.8 K/uL Red Blood Count 2.65 4.2-5.4 M/uL Hemoglobin 8.2 12.0-16.0 g/dL Hematocrit 24.3 37-47 % Mean Corpuscular Volume 91.7 80-100 fL Mean Corpuscular Hemoglobin 30.9 25-34 pg Mean Corpuscular Hemoglobin Concent 33.7 32-36 g/dl Platelet Count 75 130-400 K/uL Mean Platelet Volume 10.7 7.4-10.4 fL Neutrophils (%) (Auto) 60.7 % Lymphocytes (%) (Auto) 22.1 % Monocytes (%) (Auto) 11.9 % Eosinophils (%) (Auto) 3.9 % Basophils (%) (Auto) 1.0 % Neutrophils # (Auto) 3.11 1.4-6.5 K/uL Lymphocytes # (Auto) 1.13 1.2-3.4 K/uL Monocytes # (Auto) 0.61 0.11-0.59 K/uL Eosinophils # (Auto) 0.20 0-0.5 K/uL Basophils # (Auto) 0.05 0-0.2 K/uL RDW Standard Deviation 67.4 36.4-46.3 fL RDW Coefficient of Variation 20.0 11.5-14.5 % Immature Granulocyte % (Auto) 0.4 % Immature Granulocyte # (Auto) 0.02 0.00-0.02 K/uL Giant Platelets 1+ Poikilocytosis PRESENT Anisocytosis PRESENT Potassium Level 3.6 3.5-5.1 mmol/L Chloride Level 94 98-107 mmol/L Carbon Dioxide Level 25 21-32 mmol/L Anion Gap 9.0 3-11 mmol/L Blood Urea Nitrogen 12 7-18 mg/dl Creatinine 1.00 0.60-1.20 mg/dl Est Creatinine Clear Calc Drug Dose 70.1 ml/min Estimated GFR () 74.0 Estimated GFR (Non- 63.8 BUN/Creatinine Ratio 11.5 10-20 Random Glucose 80 70-99 mg/dl Calcium Level 8.2 8.5-10.1 mg/dl Prothrombin Time 16.1 9.0-12.0 SECONDS Prothromb Time International Ratio 1.5 0.9-1.1 Peritoneal Fluid Color YELLOW Peritoneal Fluid Appearance CLEAR Peritoneal Fluid WBC 167 0-300 /uL Peritoneal Fluid RBC < 3000 /uL Peritoneal Fld Mononuclear WBCs (%) 80.6 % Peritoneal Fld Polynuclear WBCs (%) 19.4 % Peritoneal Fluid Total Protein 0.7 g/dl Peritoneal Fluid Albumin < 0.6 g/dl Test 02/24/17 12:29 02/24/17 14:18 Range/Units Sodium Level 129 136-145 mmol/L Potassium Level 3.4 3.5-5.1 mmol/L Chloride Level 95 98-107 mmol/L Carbon Dioxide Level 27 21-32 mmol/L Anion Gap 7.0 3-11 mmol/L Blood Urea Nitrogen 11 7-18 mg/dl Creatinine 0.97 0.60-1.20 mg/dl Est Creatinine Clear Calc Drug Dose 72.3 ml/min Estimated GFR () 76.7 Estimated GFR (Non- 66.2 BUN/Creatinine Ratio 11.5 10-20 Random Glucose 111 70-99 mg/dl Osmolality 267 280-300 mOsm/kg Calcium Level 8.5 8.5-10.1 mg/dl Urine Color DK YELLOW Urine Appearance CLOUDY CLEAR Urine pH 6.0 4.5-7.5 Urine Specific [place] 1.017 1.000-1.030 Urine Protein NEG NEG Urine Glucose (UA) NEG NEG Urine Ketones NEG NEG Urine Occult Blood TRACE NEG Urine Nitrite NEG NEG Urine Bilirubin NEG NEG Urine Urobilinogen NEG NEG Urine Leukocyte Esterase MODERATE NEG Urine WBC (Auto) 0-5 /hpf Urine RBC (Auto) 0-4 /hpf Urine Hyaline Casts (Auto) 0-5 /lpf Urine Epithelial Cells (Auto) 0-5 /lpf Urine Bacteria (Auto) NEG Urine RBC 0-4 0-4 /hpf Urine WBC >30 0-5 /hpf Urine Epithelial Cells >30 0-5 /lpf Urine Bacteria 1+ NEG Urine Hyaline Casts 1-5 0-5 /lpf Urine Osmolality 212 500-800 mOms/kg Urine Random Creatinine 67.0 mg/dl Urine Random Sodium 7 mEq/L Microbiology Results 02/24/17 Gram Stain, Received Pending 02/24/17 Bacterial Culture, Received Pending
[2017-02-24] MEDS: FUROSEMIDE 20 MG TAB PO SCH (18:22)
[2017-02-24] MEDS: LORAZEPAM 0.5 MG TAB PO PRN (18:40)
--- NOTE | 2017-02-24 21:44 | NEPHROLOGY CONSULTATION ---
DATE OF CONSULTATION: 02/24/2017 REASON FOR CONSULT: Hyponatremia in a patient with alcoholic cirrhosis. HISTORY OF PRESENT ILLNESS: Lauren Licona is a 52-year-old white female with an extensive past medical history of alcohol-induced cirrhosis, hepatic encephalopathy, history of esophageal varices status post banding, and history of acute and chronic hyponatremia. She presented to the Emergency Department 2 days ago with complaints of dizziness, weakness and some question of altered mental status. The blood work done in the Emergency Department was abnormal with a serum sodium of 125 and a potassium of 3.0, BUN of 12 and a creatinine of 1.0. Her ammonia level was 34. The patient states that she has not had any alcohol for almost 6 weeks now. She was hospitalized at [facility] from February 02 to February 11 and even at that time she did have hyponatremia. At the time of discharge, her sodium was 133. She had had a CT angiogram of her chest which was negative for PE. Bilateral lower extremity Dopplers were done and was negative for DVT. Serum sodium has improved from 125 on admission to the most recent of 128 and potassium is now normal at 3.6. She is currently getting Lasix 40 mg twice daily as well as spironolactone 25 daily. Her blood pressure as expected for cirrhosis patient is on the lower side, but the most recent one is quite acceptable at 108/50. She just came from abdominal paracentesis where 2.5 L of fluid was removed. PAST MEDICAL AND SURGICAL HISTORY: Alcohol-induced cirrhosis, hepatic encephalopathy, esophageal varices status post banding, depression, hypertension, chronic hyponatremia with acute exacerbations at times, iron deficiency anemia, , anxiety disorder, and COPD. ALLERGIES: None. MEDICATIONS: Prior to hospitalization was reviewed in detail. REVIEW OF SYSTEMS: As detailed in HPI. Unless stated otherwise, 14 systems reviewed and negative. The positive review of system included increasing lower extremity edema, bilateral; increasing shortness of breath and intermittent pleuritic chest pain, weakness, fatigue and increasing abdominal distention. PHYSICAL EXAMINATION: GENERAL: Middle-aged white female who looks older than her stated age. She appears chronically ill. VITAL SIGNS: Most recent blood pressure 108/50, 94% on room air, temperature 36.8, pulse rate 86 per minute. HEENT: Mucous membranes moist. NECK: Supple. No jugular venous distention. SKIN: Shows pallor and spider angiomas. HEENT: Dry mucosa, pale conjuctivae. CHEST: Decreased breath sounds, poor inspiratory effort. HEART: Regular rate and rhythm. No murmur, rub or gallop heard. ABDOMEN: Distention positive, ascites positive. EXTREMITIES: Bilateral 1-2+ lower extremity edema. No calf tenderness. NEUROLOGIC: She is awake, alert, oriented at this time; moving all 4 extremities. Normal speech and following commands. LABORATORY TESTS: From this morning shows a sodium 128, potassium 3.6, chloride 94, CO2 25, BUN 12, creatinine 1.0, calcium 8.2. Hemoglobin 8.2, platelet count 75,000, WBC count 5.12. ASSESSMENT AND PLAN: A 52-year-old female with alcoholic cirrhosis and now admitted with a multitude of symptoms, all of which seems to be related with cirrhosis. I was called for evaluation and management of hyponatremia. 1. Hyponatremia. This is by definition hypervolemic hyponatremia in a patient with known alcoholic cirrhosis. She clearly has 1-2+ edema at this time, which means she does have fluid retention and that is the cause of hyponatremia; however, given her underlying disease it is incredibly difficult to manage her hyponatremia. She would always have somewhat low serum sodium. She needs 2 grams per day salt diet. Fluid restriction as much as we can. I would recommend around 1500 mL per day. She does need Lasix. She is currently getting 40 mg twice daily and even with that serum sodium is actually going up, but she is still complaining of a lot of lower extremity edema, so I would increase the dose of Lasix slightly to 60 mg twice daily. If her serum sodium drops then I would give her higher dose of Lasix, preferably of IV Lasix. Her potassium at this time is normal. I would continue with Aldactone. We would do a urine osmol, urinalysis, urine sodium and urine creatinine for further evaluation, but it is worth noting that given her underlying liver cirrhosis, urine sodium is always low. Repeat BMP again at least every 12 hours for now. Thank you very much for the consult. CAR[place]
[2017-02-25] VITALS (10 sets, daily range): BP systolic 95–116; BP diastolic 53–66; PULSE 86–93; TEMP 36.6–37; O2SAT 91–93
[2017-02-25 06:16] LABS: HEMATOCRIT 22.1 % (37-47); MEAN CELL VOLUME 92.1 fL (80-100); MEAN CORPUSCULAR HEMOGLOBIN 32.1 pg (25-34); MEAN CORPUSCULAR HGB CONC 34.8 g/dl (32-36); WHITE BLOOD COUNT 3.48 K/uL (4.8-10.8)
[2017-02-25 06:25] LABS: MEAN PLATELET VOLUME 11.2 fL (7.4-10.4); PLATELET COUNT 59 K/uL (130-400)
[2017-02-25 06:42] LABS: ANISOCYTOSIS PRESENT; BASO % 0.9 %; BASO ABS # 0.03 K/uL (0-0.2); COMPLETE YES; EOS % 4.9 %; LARGE PLATELETS 2+; LYMPH % 8.3 %; LYMPH ABS # 0.29 K/uL (1.2-3.4); MONO % 25.3 %; NEUT % 60.6 %
[2017-02-25 06:44] LABS: BUN/CREATININE RATIO 11.7 (10-20); CALCIUM 8.3 mg/dl (8.5-10.1); CREATININE 0.77 mg/dl (0.60-1.20); POTASSIUM 3.3 mmol/L (3.5-5.1)
[2017-02-25] MEDS: ALBUT/IPRATROP 3MG/0.5MG NEB 3 ML VIAL INH PRN ×2 (08:17→22:19)
[2017-02-25] MEDS: AMOXICILLIN/CLAVULANATE TAB 875 MG TAB PO SCH ×2 (08:22→16:58)
[2017-02-25] MEDS: MIDODRINE 2.5 MG TAB PO SCH ×3 (08:23→16:58)
[2017-02-25] MEDS: FUROSEMIDE 20 MG TAB PO SCH ×2 (08:23→16:58)
[2017-02-25] MEDS: SPIRONOLACTONE 25 MG TAB PO SCH (08:23)
[2017-02-25] MEDS: PANTOprazole SOD 40 MG TAB PO SCH ×2 (08:24→20:27)
[2017-02-25] MEDS: CEROVITE ADV FORMULA TAB PO SCH (08:24)
[2017-02-25] MEDS: ESCITALOPRAM OXALATE 10 MG TAB PO SCH (08:24)
[2017-02-25] MEDS: THIAMINE HCL 100 MG TAB PO SCH (08:24)
[2017-02-25] MEDS: LACTULOSE SYRUP 10 GM/15 ML BTL 473 ML PO SCH ×3 (08:28→20:27)
[2017-02-25] MEDS: TRAMADOL HCL 50 MG TAB PO PRN ×3 (08:30→23:42)
[2017-02-25] MEDS ORDERED: POTASSIUM CHLORIDE 20 MEQ TABCR PO STA (09:30)
[2017-02-25] MEDS: LORAZEPAM 0.5 MG TAB PO PRN (09:55)
--- NOTE | 2017-02-25 12:58 | NEPHROLOGY PROGRESS NOTE ---
DATE: 02/25/2017 SUBJECTIVE: Overnight, no new issues. Serum sodium has remained slightly low, but stable with a serum sodium ranging from 127 to 129. Most recently is 128. She is making urine, but we do not have a Malloy catheter, so hard to tell exactly how much. Blood pressure is slightly on the lower side, but acceptable. OBJECTIVE: VITAL SIGNS: Most recent blood pressure is 107/57, 92% on room air, pulse rate 86, and temperature 36.6. HEENT: Mucous membrane is moist. NECK: Supple. No jugular venous distention. SKIN: Does show spider angiomas, pallor and some signs of liver cirrhosis. CHEST: Decreased breath sounds. Poor inspiratory effort. CARDIOVASCULAR: Regular rate and rhythm. No murmur, rub or gallop heard. ABDOMEN: Positive for ascites. EXTREMITIES: Show 1-2+ lower extremity edema. No calf tenderness. NEUROLOGIC: She is awake, alert, and oriented at this time, moving all 4 extremities. Normal speech and following commands. LABORATORY TESTS: From this morning, sodium 128, potassium 3.3, BUN is 9, creatinine 0.77, and calcium is 8.3. ASSESSMENT AND PLAN: A 52-year-old female with alcoholic cirrhosis, now admitted with multitude of symptoms, all of which seem to be related with cirrhosis. I was called for evaluation and management of hyponatremia. 1. Hyponatremia. This is by definition hypervolemic hyponatremia in a patient with known alcoholic cirrhosis. She still has evidence of fluid retention with lower extremity edema as well as ascites. I would continue with the Lasix 60 mg twice daily for now. If her serum sodium gets lower, we can increase the Lasix to a higher dose; however, her blood pressure can be low and she also gets lightheaded, which is limiting how much Lasix we can actually use. Serum sodium will fluctuate depending on her hydration status. It would be low if she is hypervolemic. It will be closer to normal when is more euvolemic. Continue to do labs once a day at this time. MTDD
--- NOTE | 2017-02-25 13:35 | Progress Note ---
Internal Med Progress Note Date of Service: Feb 25, 2017. Provider Documentation: SUBJECTIVE: The patient was seen and examined Generally weak and lethargic Denies any symptoms OBJECTIVE: Vital Signs-as noted below Exam: General-No distress at rest Eyes-normal ENT-normal Neck-supple Lungs-clear to ausucltate bilaterally Heart-Regular,no murmur appreciated Abdomen-Benign,no masses,bowel sound present Extremities-Trace edema bilaterally Neuro-AAOc3 Generally weak Lab data as noted below. ASSESSMENT & PLAN: Acute on chronic hyponatremia -hx of cirrhosis with Fluid Overload -fluid restriction -appreciate Nephrology input and recommendation -Has been on Lasix 60mg IV BID -Sodium is stable at 128 Decompensated cirrhosis. Painful ascites:s/p paracentesis with 2.4lts taken out- no SBP Increased midodrine to improve BP Generally weak but remains stable Urinary tract infection, no sepsis. on Augmentin f/u cx-negative Chest pain. shortness of breath -most likely Old rib fractures -CTA chest no Pe - moderate rt pleural effusion Lower extremity swelling secondary to decompensated cirrhosis No DVT. Past alcohol abuse. No withdrawal symptoms Orthostatic hypotension on Midodrine. -increased midodrine to 5mg tid Ongoing tobacco abuse. DVT PROPHYLAXIS scds DISPOSITION Awaited Vital Signs: Date Time Temp Pulse Resp B/P (MAP) Pulse Ox O2 Delivery O2 Flow Rate FiO2 02/25/17 12:15 89 116/66 (83) 02/25/17 09:50 88 104/64 (77) 02/25/17 08:22 90 16 93 Room Air 02/25/17 08:15 89 95/55 (68) 02/25/17 08:10 Room Air 02/25/17 07:21 37.0 86 18 111/57 (75) 91 Room Air 02/25/17 00:22 36.8 87 18 104/62 (76) 92 Room Air 02/25/17 00:00 Room Air 02/24/17 23:07 36.6 86 20 107/57 (74) 92 Room Air 02/24/17 20:00 Room Air 02/24/17 19:49 36.5 86 20 108/62 (77) 95 Room Air 02/24/17 19:20 36.7 88 24 100/51 (67) 94 Room Air 02/24/17 16:00 97 Room Air 02/24/17 15:19 36.6 90 18 112/65 (81) 97 Room Air 02/24/17 14:09 91 92 Lab Results: Results Past 24 Hours Test 02/24/17 14:18 02/25/17 05:37 Range/Units Urine Color DK YELLOW Urine Appearance CLOUDY CLEAR Urine pH 6.0 4.5-7.5 Urine Specific [place] 1.017 1.000-1.030 Urine Protein NEG NEG Urine Glucose (UA) NEG NEG Urine Ketones NEG NEG Urine Occult Blood TRACE NEG Urine Nitrite NEG NEG Urine Bilirubin NEG NEG Urine Urobilinogen NEG NEG Urine Leukocyte Esterase MODERATE NEG Urine WBC (Auto) 0-5 /hpf Urine RBC (Auto) 0-4 /hpf Urine Hyaline Casts (Auto) 0-5 /lpf Urine Epithelial Cells (Auto) 0-5 /lpf Urine Bacteria (Auto) NEG Urine RBC 0-4 0-4 /hpf Urine WBC >30 0-5 /hpf Urine Epithelial Cells >30 0-5 /lpf Urine Bacteria 1+ NEG Urine Hyaline Casts 1-5 0-5 /lpf Urine Osmolality 212 500-800 mOms/kg Urine Random Creatinine 67.0 mg/dl Urine Random Sodium 7 mEq/L White Blood Count 3.48 4.8-10.8 K/uL Red Blood Count 2.40 4.2-5.4 M/uL Hemoglobin 7.7 12.0-16.0 g/dL Hematocrit 22.1 37-47 % Mean Corpuscular Volume 92.1 80-100 fL Mean Corpuscular Hemoglobin 32.1 25-34 pg Mean Corpuscular Hemoglobin Concent 34.8 32-36 g/dl Platelet Count 59 130-400 K/uL Mean Platelet Volume 11.2 7.4-10.4 fL Neutrophils (%) (Auto) 60.6 % Lymphocytes (%) (Auto) 8.3 % Monocytes (%) (Auto) 25.3 % Eosinophils (%) (Auto) 4.9 % Basophils (%) (Auto) 0.9 % Neutrophils # (Auto) 2.11 1.4-6.5 K/uL Lymphocytes # (Auto) 0.29 1.2-3.4 K/uL Monocytes # (Auto) 0.88 0.11-0.59 K/uL Eosinophils # (Auto) 0.17 0-0.5 K/uL Basophils # (Auto) 0.03 0-0.2 K/uL RDW Standard Deviation 65.8 36.4-46.3 fL RDW Coefficient of Variation 19.7 11.5-14.5 % Immature Granulocyte % (Auto) 0.0 % Immature Granulocyte # (Auto) 0.00 0.00-0.02 K/uL Large Platelets 2+ Anisocytosis PRESENT Sodium Level 128 136-145 mmol/L Potassium Level 3.3 3.5-5.1 mmol/L Chloride Level 95 98-107 mmol/L Carbon Dioxide Level 27 21-32 mmol/L Anion Gap 6.0 3-11 mmol/L Blood Urea Nitrogen 9 7-18 mg/dl Creatinine 0.77 0.60-1.20 mg/dl Est Creatinine Clear Calc Drug Dose 91.0 ml/min Estimated GFR () 101.5 Estimated GFR (Non- 87.5 BUN/Creatinine Ratio 11.7 10-20 Random Glucose 80 70-99 mg/dl Calcium Level 8.3 8.5-10.1 mg/dl
[2017-02-25 15:28] LABS: HEMATOCRIT 23.3 % (37-47)
[2017-02-26] VITALS (8 sets, daily range): BP systolic 91–104; BP diastolic 54–66; PULSE 83–97; TEMP 36.5–37; O2SAT 91–93
[2017-02-26 05:45] LABS: HEMATOCRIT 22.7 % (37-47); MEAN CELL VOLUME 91.9 fL (80-100); MEAN CORPUSCULAR HGB CONC 34.8 g/dl (32-36); RED BLOOD COUNT 2.47 M/uL (4.2-5.4); WHITE BLOOD COUNT 4.54 K/uL (4.8-10.8)
[2017-02-26 05:48] LABS: MEAN PLATELET VOLUME 11.3 fL (7.4-10.4); PLATELET COUNT 69 K/uL (130-400)
[2017-02-26 06:10] LABS: ANISOCYTOSIS PRESENT; BASO % 1.1 %; BASO ABS # 0.05 K/uL (0-0.2); COMPLETE YES; EOS % 1.3 %; IG% 0.4 %; LARGE PLATELETS 1+; LYMPH % 10.8 %; LYMPH ABS # 0.49 K/uL (1.2-3.4); MONO % 25.3 %; NEUT % 61.1 %
[2017-02-26 06:12] LABS: BUN/CREATININE RATIO 9.7 (10-20); CALCIUM 7.7 mg/dl (8.5-10.1); CREATININE 0.75 mg/dl (0.60-1.20); POTASSIUM 3.4 mmol/L (3.5-5.1)
[2017-02-26] MEDS ORDERED: POTASSIUM CHLORIDE 10 MEQ TABCR PO STA (08:00)
[2017-02-26] MEDS: AMOXICILLIN/CLAVULANATE TAB 875 MG TAB PO SCH ×2 (08:20→17:00)
[2017-02-26] MEDS: SPIRONOLACTONE 25 MG TAB PO SCH (08:21)
[2017-02-26] MEDS: MIDODRINE 2.5 MG TAB PO SCH ×3 (08:21→16:08)
[2017-02-26] MEDS: THIAMINE HCL 100 MG TAB PO SCH (08:22)
[2017-02-26] MEDS: CEROVITE ADV FORMULA TAB PO SCH (08:22)
[2017-02-26] MEDS: FUROSEMIDE 20 MG TAB PO SCH ×2 (08:22→17:01)
[2017-02-26] MEDS: PANTOprazole SOD 40 MG TAB PO SCH ×2 (08:22→20:20)
[2017-02-26] MEDS: ESCITALOPRAM OXALATE 10 MG TAB PO SCH (08:22)
[2017-02-26] MEDS: LACTULOSE SYRUP 10 GM/15 ML BTL 473 ML PO SCH ×3 (08:23→20:21)
[2017-02-26] MEDS: LORAZEPAM 0.5 MG TAB PO PRN (08:27)
[2017-02-26] MEDS: TRAMADOL HCL 50 MG TAB PO PRN ×4 (08:27→23:59)
[2017-02-26] MEDS ORDERED: POTASSIUM CHLORIDE 10 MEQ TABCR PO ONE (08:30)
--- NOTE | 2017-02-26 09:13 | Nephrology Progress Note ---
Nephrology Progress Note Date of Service: Feb 26, 2017. Subjective no c/o except ongoing edema. some orthostatic sx but states she ambulates well; struggling w/ fluid limit Objective Date Time Temp Pulse Resp B/P (MAP) Pulse Ox O2 Delivery O2 Flow Rate FiO2 02/26/17 06:54 37.0 97 16 97/54 (68) 91 Room Air 02/26/17 00:00 Room Air 02/25/17 23:55 36.7 93 18 106/53 (70) 92 Room Air 02/25/17 22:19 86 16 93 Room Air 02/25/17 16:00 92 Room Air 02/25/17 15:41 36.6 86 18 102/56 (71) 92 Room Air 02/25/17 12:15 89 116/66 (83) 02/25/17 09:50 88 104/64 (77) 02/25/17 08:22 90 16 93 Room Air 02/25/17 08:15 89 95/55 (68) 02/25/17 08:10 Room Air Physical Exam: General-on RA maneuvers readily for exam, nad HEENT: Mucous membrans moist. NECK: Supple. SKIN: nonpruritic upper body diffuse rash w/ macules and patches CHEST: Decreased breath sounds. CARDIOVASCULAR: Regular rate and rhythm. ABDOMEN: soft NT + fluid wave; no sears EXTREMITIES: trace lower extremity edema. no c/c NEUROLOGIC: awake, alert, and oriented at this time, moving all 4 extremities. Normal speech and following commands. Current Inpatient Medications Medications (Trade) Dose Ordered Sig/Betty Route Start Time Stop Time Status Last Admin Dose Admin Acetaminophen (Tylenol Tab) 325 mg Q6H PRN PO 02/22/17 22:15 03/24/17 22:14 Escitalopram Oxalate (Lexapro Tab) 10 mg QAM PO 02/23/17 09:00 03/25/17 08:59 02/25/17 08:24 10 MG Lorazepam (Ativan Tab) 0.5 mg BID PRN PO 02/22/17 22:15 03/24/17 22:14 02/25/17 09:55 0.5 MG Multivitamins/ Minerals (Multivitamin W/ Minerals Tab) 1 tab DAILY PO 02/23/17 09:00 03/25/17 08:59 02/25/17 08:24 1 TAB Pantoprazole Sodium (Protonix Tab) 40 mg BID PO 02/23/17 09:00 03/25/17 08:59 02/25/17 20:27 40 MG Tramadol HCl (Ultram Tab) pain not relieved by tylenol Q4H PRN PO 02/22/17 22:15 03/24/17 22:14 02/25/17 23:42 50 MG Thiamine HCl (Vitamin B-1 Tab) 100 mg QAM PO 02/23/17 09:00 03/25/17 08:59 02/25/17 08:24 100 MG Folic Acid (Folvite Tab) 1 mg QAM PO 02/23/17 09:00 03/25/17 08:59 02/25/17 08:23 1 MG Ondansetron HCl (Zofran Inj) 4 mg Q6H PRN IV 02/22/17 22:15 03/24/17 22:14 Morphine Sulfate (MoRPHine SULFATE INJ) 2 mg Q3H PRN IV 02/22/17 22:15 03/08/17 22:14 Ioversol (Optiray 320) 100 ml UD PRN IV 02/22/17 22:45 02/26/17 22:44 Midodrine (Proamatine Tab) 5 mg TID@,,17 PO 02/23/17 08:00 03/25/17 07:59 02/25/17 16:58 5 MG Albuterol/ Ipratropium (Duoneb) 3 ml Q2H PRN INH 02/22/17 23:00 03/24/17 22:59 02/25/17 22:19 3 ML Spironolactone (Aldactone Tab) 25 mg QAM PO 02/23/17 09:00 03/25/17 08:59 02/25/17 08:23 25 MG Lactulose (Chronulac Syrup) 15 gm TID PO 02/24/17 09:00 03/25/17 08:59 02/25/17 20:27 15 GM Amoxicillin/ Clavulanate Potassium (Augmentin Tab) 875 mg BIDM PO 02/24/17 09:00 02/28/17 08:59 02/25/17 16:58 875 MG Furosemide (Lasix Tab) 60 mg BID17 PO 02/24/17 17:00 03/25/17 08:59 02/25/17 16:58 60 MG Last 24 Hours Test 02/25/17 15:13 02/26/17 05:16 Hemoglobin 8.3 g/dL 7.9 g/dL Hematocrit 23.3 % 22.7 % White Blood Count 4.54 K/uL Red Blood Count 2.47 M/uL Mean Corpuscular Volume 91.9 fL Mean Corpuscular Hemoglobin 32.0 pg Mean Corpuscular Hemoglobin Concent 34.8 g/dl Platelet Count 69 K/uL Mean Platelet Volume 11.3 fL Neutrophils (%) (Auto) 61.1 % Lymphocytes (%) (Auto) 10.8 % Monocytes (%) (Auto) 25.3 % Eosinophils (%) (Auto) 1.3 % Basophils (%) (Auto) 1.1 % Neutrophils # (Auto) 2.77 K/uL Lymphocytes # (Auto) 0.49 K/uL Monocytes # (Auto) 1.15 K/uL Eosinophils # (Auto) 0.06 K/uL Basophils # (Auto) 0.05 K/uL RDW Standard Deviation 65.7 fL RDW Coefficient of Variation 19.7 % Immature Granulocyte % (Auto) 0.4 % Immature Granulocyte # (Auto) 0.02 K/uL Large Platelets 1+ Basophilic Stippling 1+ Anisocytosis PRESENT Sodium Level 129 mmol/L Potassium Level 3.4 mmol/L Chloride Level 97 mmol/L Carbon Dioxide Level 27 mmol/L Anion Gap 5.0 mmol/L Blood Urea Nitrogen 7 mg/dl Creatinine 0.75 mg/dl Est Creatinine Clear Calc Drug Dose 93.5 ml/min Estimated GFR () 104.7 Estimated GFR (Non- 90.4 BUN/Creatinine Ratio 9.7 Random Glucose 83 mg/dl Calcium Level 7.7 mg/dl Assessment & Plan 52-year-old female with alcoholic cirrhosis admitted with volume overload, UTI, hypervolemic hyponatremia. Hypervolemic hyponatremia from liver disease complicated by symptomatic hypotension -continue lasix 60 mg po bid -reinforced importance of fluid limit 1.5 L currently and of cooperating w/ nursing efforts to track output -cont midodrine and current spironolactone dosing -cont <2 gm daily Na diet -I gave some oral K today > may need standing dose -once daily labs appropriate Appreciate consult; will follow with you.
--- NOTE | 2017-02-26 13:07 | Gastroenterology Progress Note ---
Progress Note Date of Service: Feb 26, 2017 Subjective Pt evaluation today including: conversation w/ patient, physical exam, chart review, lab review, review of inpatient medication list Pt reports feeling well today, denies any CP, SOB, headache, abd pain, n/v, diarrhea. BM 4x a day. No bleeding noted. Review of Systems Constitutional: No fever, No chills Respiratory: No cough Cardiac: No chest pain, No edema Abdomen: No pain, No nausea, No vomiting, No diarrhea, No GI bleeding Endo: No fatigue Skin: No rash, No itch, No jaundice Medications Current Inpatient Medications Medications (Trade) Dose Ordered Sig/Betty Route Start Time Stop Time Status Last Admin Dose Admin Acetaminophen (Tylenol Tab) 325 mg Q6H PRN PO 02/22/17 22:15 03/24/17 22:14 Escitalopram Oxalate (Lexapro Tab) 10 mg QAM PO 02/23/17 09:00 03/25/17 08:59 02/26/17 08:22 10 MG Lorazepam (Ativan Tab) 0.5 mg BID PRN PO 02/22/17 22:15 03/24/17 22:14 02/26/17 08:27 0.5 MG Multivitamins/ Minerals (Multivitamin W/ Minerals Tab) 1 tab DAILY PO 02/23/17 09:00 03/25/17 08:59 02/26/17 08:22 1 TAB Pantoprazole Sodium (Protonix Tab) 40 mg BID PO 02/23/17 09:00 03/25/17 08:59 02/26/17 08:22 40 MG Tramadol HCl (Ultram Tab) pain not relieved by tylenol Q4H PRN PO 02/22/17 22:15 03/24/17 22:14 02/26/17 08:27 50 MG Thiamine HCl (Vitamin B-1 Tab) 100 mg QAM PO 02/23/17 09:00 03/25/17 08:59 02/26/17 08:22 100 MG Folic Acid (Folvite Tab) 1 mg QAM PO 02/23/17 09:00 03/25/17 08:59 02/26/17 08:21 1 MG Ondansetron HCl (Zofran Inj) 4 mg Q6H PRN IV 02/22/17 22:15 03/24/17 22:14 Morphine Sulfate (MoRPHine SULFATE INJ) 2 mg Q3H PRN IV 02/22/17 22:15 03/08/17 22:14 Ioversol (Optiray 320) 100 ml UD PRN IV 02/22/17 22:45 02/26/17 22:44 Midodrine (Proamatine Tab) 5 mg TID@08,12,17 PO 02/23/17 08:00 03/25/17 07:59 02/26/17 12:17 5 MG Albuterol/ Ipratropium (Duoneb) 3 ml Q2H PRN INH 02/22/17 23:00 03/24/17 22:59 02/25/17 22:19 3 ML Spironolactone (Aldactone Tab) 25 mg QAM PO 02/23/17 09:00 03/25/17 08:59 02/26/17 08:21 25 MG Lactulose (Chronulac Syrup) 15 gm TID PO 02/24/17 09:00 03/25/17 08:59 02/26/17 08:23 15 GM Amoxicillin/ Clavulanate Potassium (Augmentin Tab) 875 mg BIDM PO 02/24/17 09:00 02/28/17 08:59 02/26/17 08:20 875 MG Furosemide (Lasix Tab) 60 mg BID17 PO 02/24/17 17:00 03/25/17 08:59 02/26/17 08:22 60 MG Cosyntropin 1 mcg/ Syringe 0.5 ml @ 1 mls/min ONE ONCE IV 02/27/17 08:00 02/27/17 08:01 UNV Objective Vital Signs Date Time Temp Pulse Resp B/P (MAP) Pulse Ox O2 Delivery O2 Flow Rate FiO2 02/26/17 12:20 36.5 92 18 102/59 (73) 92 Room Air 02/26/17 08:40 37.0 93 18 91/54 (66) 92 Room Air 02/26/17 08:00 92 Room Air 02/26/17 06:54 37.0 97 16 97/54 (68) 91 Room Air 02/26/17 00:00 Room Air 02/25/17 23:55 36.7 93 18 106/53 (70) 92 Room Air 02/25/17 22:19 86 16 93 Room Air 02/25/17 16:00 92 Room Air 02/25/17 15:41 36.6 86 18 102/56 (71) 92 Room Air Physical Exam General Appearance: WD/WN, no apparent distress Eyes: + pertinent finding (icteric sclera) Neck: supple, no JVD, trachea midline Respiratory/Chest: no respiratory distress, no accessory muscle use, + decreased breath sounds Cardiovascular: regular rate, rhythm, no gallop, no murmur Abdomen: normal bowel sounds, non tender, soft Extremities: normal inspection, no pedal edema, no calf tenderness Neurologic/Psych: alert, normal mood/affect, oriented x 3 Skin: + jaundice, + pertinent finding (spider angiomata on face, chest ) Laboratory Results Last 24 Hours Test 02/25/17 15:13 02/26/17 05:16 Hemoglobin 8.3 g/dL 7.9 g/dL Hematocrit 23.3 % 22.7 % White Blood Count 4.54 K/uL Red Blood Count 2.47 M/uL Mean Corpuscular Volume 91.9 fL Mean Corpuscular Hemoglobin 32.0 pg Mean Corpuscular Hemoglobin Concent 34.8 g/dl Platelet Count 69 K/uL Mean Platelet Volume 11.3 fL Neutrophils (%) (Auto) 61.1 % Lymphocytes (%) (Auto) 10.8 % Monocytes (%) (Auto) 25.3 % Eosinophils (%) (Auto) 1.3 % Basophils (%) (Auto) 1.1 % Neutrophils # (Auto) 2.77 K/uL Lymphocytes # (Auto) 0.49 K/uL Monocytes # (Auto) 1.15 K/uL Eosinophils # (Auto) 0.06 K/uL Basophils # (Auto) 0.05 K/uL RDW Standard Deviation 65.7 fL RDW Coefficient of Variation 19.7 % Immature Granulocyte % (Auto) 0.4 % Immature Granulocyte # (Auto) 0.02 K/uL Large Platelets 1+ Basophilic Stippling 1+ Anisocytosis PRESENT Sodium Level 129 mmol/L Potassium Level 3.4 mmol/L Chloride Level 97 mmol/L Carbon Dioxide Level 27 mmol/L Anion Gap 5.0 mmol/L Blood Urea Nitrogen 7 mg/dl Creatinine 0.75 mg/dl Est Creatinine Clear Calc Drug Dose 93.5 ml/min Estimated GFR () 104.7 Estimated GFR (Non- 90.4 BUN/Creatinine Ratio 9.7 Random Glucose 83 mg/dl Calcium Level 7.7 mg/dl Assessment and Plan Patient is a 52 year old female w ETOH cirrhosis, admitted for weakness, hyponatremia (improving). Pt said last ETOH intake 01/17/17. Last paracentesis 2 days ago w 2.3L removed, no SBP noted. MELD 17, MELD Na 24. Plan - Lactulose 15g TID may titrate to goal BM 3-5 a day - Continue Protonix 40mg BID - Defer diuretic titration of dose by Nephrology, monitor Cr and electrolytes - 2g Na diet; 1.5L fluid restriction - Will order Cortisol STIM test. - Discussed w pt importance of quitting ETOH intake, advised to go through AA again. - Will help arrange for GI f/u upon her DC (follows Dr. Funk). I have seen, examined, and agree with the plan as outlined above by WILBERT Lynn. -Likely Hypervolemic, hypernatremia, but will stim given symptoms and complete w /u
--- NOTE | 2017-02-26 14:07 | Progress Note ---
Internal Med Progress Note Date of Service: Feb 26, 2017. Provider Documentation: SUBJECTIVE: The patient was seen and examined Generally weak and lethargic Denies any symptoms Much brighter today OBJECTIVE: Vital Signs-as noted below Exam: General-No distress at rest Eyes-normal ENT-normal Neck-supple Lungs-clear to ausucltate bilaterally Heart-Regular,no murmur appreciated Abdomen-Benign,no masses,bowel sound present Mild tenderness left flunk area ,the site of paracentesis Extremities-Trace edema bilaterally Neuro-AAOc3 Generally weak Lab data as noted below. ASSESSMENT & PLAN: Chronic Anemia Hb 9.6 to 7.9 Type and Hold 2 units Transfuse of Hb <7.0 Acute on chronic hyponatremia -hx of cirrhosis with Fluid Overload -fluid restriction -appreciate Nephrology input and recommendation -Has been on Lasix 60mg IV BID-changed to oral -Sodium is stable at 129 -Remains stable but needs further improvement -can be discharged when level ~130 Decompensated cirrhosis. Painful ascites:s/p paracentesis with 2.4lts taken out- no SBP Increased midodrine to improve BP Generally weak but remains stable OP GI appointment Urinary tract infection, no sepsis. on Augmentin f/u cx-negative Will stop after 7 days course Chest pain. shortness of breath -most likely Old rib fractures -CTA chest no Pe - moderate rt pleural effusion Lower extremity swelling secondary to decompensated cirrhosis No DVT. Past alcohol abuse. No withdrawal symptoms AA as an OP Orthostatic hypotension on Midodrine. -increased midodrine to 5mg tid Ongoing tobacco abuse. DVT PROPHYLAXIS scds DISPOSITION Awaited Vital Signs: Date Time Temp Pulse Resp B/P (MAP) Pulse Ox O2 Delivery O2 Flow Rate FiO2 02/26/17 12:20 36.5 92 18 102/59 (73) 92 Room Air 02/26/17 08:40 37.0 93 18 91/54 (66) 92 Room Air 02/26/17 08:00 92 Room Air 02/26/17 06:54 37.0 97 16 97/54 (68) 91 Room Air 02/26/17 00:00 Room Air 02/25/17 23:55 36.7 93 18 106/53 (70) 92 Room Air 02/25/17 22:19 86 16 93 Room Air 02/25/17 16:00 92 Room Air 02/25/17 15:41 36.6 86 18 102/56 (71) 92 Room Air Lab Results: Results Past 24 Hours Test 02/25/17 15:13 02/26/17 05:16 Range/Units Hemoglobin 8.3 7.9 12.0-16.0 g/dL Hematocrit 23.3 22.7 37-47 % White Blood Count 4.54 4.8-10.8 K/uL Red Blood Count 2.47 4.2-5.4 M/uL Mean Corpuscular Volume 91.9 80-100 fL Mean Corpuscular Hemoglobin 32.0 25-34 pg Mean Corpuscular Hemoglobin Concent 34.8 32-36 g/dl Platelet Count 69 130-400 K/uL Mean Platelet Volume 11.3 7.4-10.4 fL Neutrophils (%) (Auto) 61.1 % Lymphocytes (%) (Auto) 10.8 % Monocytes (%) (Auto) 25.3 % Eosinophils (%) (Auto) 1.3 % Basophils (%) (Auto) 1.1 % Neutrophils # (Auto) 2.77 1.4-6.5 K/uL Lymphocytes # (Auto) 0.49 1.2-3.4 K/uL Monocytes # (Auto) 1.15 0.11-0.59 K/uL Eosinophils # (Auto) 0.06 0-0.5 K/uL Basophils # (Auto) 0.05 0-0.2 K/uL RDW Standard Deviation 65.7 36.4-46.3 fL RDW Coefficient of Variation 19.7 11.5-14.5 % Immature Granulocyte % (Auto) 0.4 % Immature Granulocyte # (Auto) 0.02 0.00-0.02 K/uL Large Platelets 1+ Basophilic Stippling 1+ Anisocytosis PRESENT Sodium Level 129 136-145 mmol/L Potassium Level 3.4 3.5-5.1 mmol/L Chloride Level 97 98-107 mmol/L Carbon Dioxide Level 27 21-32 mmol/L Anion Gap 5.0 3-11 mmol/L Blood Urea Nitrogen 7 7-18 mg/dl Creatinine 0.75 0.60-1.20 mg/dl Est Creatinine Clear Calc Drug Dose 93.5 ml/min Estimated GFR () 104.7 Estimated GFR (Non- 90.4 BUN/Creatinine Ratio 9.7 10-20 Random Glucose 83 70-99 mg/dl Calcium Level 7.7 8.5-10.1 mg/dl
[2017-02-26] MEDS: ALBUT/IPRATROP 3MG/0.5MG NEB 3 ML VIAL INH PRN (20:03)
[2017-02-27] VITALS (8 sets, daily range): BP systolic 91–103; BP diastolic 46–70; PULSE 84–92; TEMP 36.6–37.3; O2SAT 91–94
[2017-02-27 07:03] LABS: MEAN CORPUSCULAR HEMOGLOBIN 32.2 pg (25-34); RED BLOOD COUNT 2.61 M/uL (4.2-5.4); WHITE BLOOD COUNT 5.86 K/uL (4.8-10.8)
[2017-02-27 07:14] LABS: MEAN PLATELET VOLUME 10.9 fL (7.4-10.4); PLATELET COUNT 67 K/uL (130-400)
[2017-02-27 07:33] LABS: BUN/CREATININE RATIO 10.1 (10-20); CALCIUM 8.2 mg/dl (8.5-10.1); CREATININE 0.69 mg/dl (0.60-1.20); POTASSIUM 3.6 mmol/L (3.5-5.1)
[2017-02-27 07:41] LABS: ANISOCYTOSIS PRESENT; BASO % 0.9 %; BASO ABS # 0.05 K/uL (0-0.2); COMPLETE YES; EOS % 3.4 %; IG% 0.5 %; LARGE PLATELETS 3+; LYMPH % 4.9 %; LYMPH ABS # 0.29 K/uL (1.2-3.4); MONO % 29.5 %; NEUT % 60.8 %; PLT ESTIMATE DECREASED
[2017-02-27] MEDS ORDERED: COSYNTROPIN INJ 1 MCG in SYRINGE 0 ML IV ONE (08:00)
[2017-02-27] MEDS: SPIRONOLACTONE 25 MG TAB PO SCH (08:39)
[2017-02-27] MEDS: PANTOprazole SOD 40 MG TAB PO SCH ×2 (08:39→20:38)
[2017-02-27] MEDS: LACTULOSE SYRUP 10 GM/15 ML BTL 473 ML PO SCH ×3 (08:39→20:39)
[2017-02-27] MEDS: THIAMINE HCL 100 MG TAB PO SCH (08:39)
[2017-02-27] MEDS: CEROVITE ADV FORMULA TAB PO SCH (08:39)
[2017-02-27] MEDS: POTASSIUM CHLORIDE 20 MEQ TABCR PO SCH (08:40)
[2017-02-27] MEDS: FUROSEMIDE 20 MG TAB PO SCH (08:40)
[2017-02-27] MEDS: ESCITALOPRAM OXALATE 10 MG TAB PO SCH (08:40)
[2017-02-27] MEDS: MIDODRINE 2.5 MG TAB PO SCH ×3 (08:41→16:51)
[2017-02-27] MEDS: AMOXICILLIN/CLAVULANATE TAB 875 MG TAB PO SCH ×2 (08:41→16:51)
[2017-02-27] MEDS: TRAMADOL HCL 50 MG TAB PO PRN ×3 (08:46→21:23)
[2017-02-27] MEDS: LORAZEPAM 0.5 MG TAB PO PRN ×2 (08:47→17:38)
[2017-02-27] MEDS ORDERED: NURSING VERBAL MED ORDER ONE (09:15)
--- NOTE | 2017-02-27 09:40 | Gastroenterology Progress Note ---
Progress Note Date of Service: Feb 27, 2017 Subjective Pt evaluation today including: conversation w/ patient, physical exam, chart review, lab review, review of inpatient medication list Pt reports feeling well, denies CP. But does have some cough and slight SOB, needing Albuterol nebulizer treatment. Cough dry, causing throat irritated, she is using Biotene spray for dry mouth. Denies any abd pain, n/v. Review of Systems Constitutional: No fever, No chills Respiratory: + see HPI, + cough, + shortness of breath, No sputum Cardiac: No chest pain Abdomen: No pain, No nausea, No vomiting, No GI bleeding Medications Current Inpatient Medications Medications (Trade) Dose Ordered Sig/Betty Route Start Time Stop Time Status Last Admin Dose Admin Acetaminophen (Tylenol Tab) 325 mg Q6H PRN PO 02/22/17 22:15 03/24/17 22:14 Escitalopram Oxalate (Lexapro Tab) 10 mg QAM PO 02/23/17 09:00 03/25/17 08:59 02/27/17 08:40 10 MG Lorazepam (Ativan Tab) 0.5 mg BID PRN PO 02/22/17 22:15 03/24/17 22:14 02/27/17 08:47 0.5 MG Multivitamins/ Minerals (Multivitamin W/ Minerals Tab) 1 tab DAILY PO 02/23/17 09:00 03/25/17 08:59 02/27/17 08:39 1 TAB Pantoprazole Sodium (Protonix Tab) 40 mg BID PO 02/23/17 09:00 03/25/17 08:59 02/27/17 08:39 40 MG Tramadol HCl (Ultram Tab) pain not relieved by tylenol Q4H PRN PO 02/22/17 22:15 03/24/17 22:14 02/27/17 08:46 50 MG Thiamine HCl (Vitamin B-1 Tab) 100 mg QAM PO 02/23/17 09:00 03/25/17 08:59 02/27/17 08:39 100 MG Folic Acid (Folvite Tab) 1 mg QAM PO 02/23/17 09:00 03/25/17 08:59 02/27/17 08:40 1 MG Ondansetron HCl (Zofran Inj) 4 mg Q6H PRN IV 02/22/17 22:15 03/24/17 22:14 Morphine Sulfate (MoRPHine SULFATE INJ) 2 mg Q3H PRN IV 02/22/17 22:15 03/08/17 22:14 Midodrine (Proamatine Tab) 5 mg TID@08,12,17 PO 02/23/17 08:00 03/25/17 07:59 02/27/17 08:41 5 MG Albuterol/ Ipratropium (Duoneb) 3 ml Q2H PRN INH 02/22/17 23:00 03/24/17 22:59 02/26/17 20:03 3 ML Spironolactone (Aldactone Tab) 25 mg QAM PO 02/23/17 09:00 03/25/17 08:59 02/27/17 08:39 25 MG Lactulose (Chronulac Syrup) 15 gm TID PO 02/24/17 09:00 03/25/17 08:59 02/27/17 08:39 15 GM Amoxicillin/ Clavulanate Potassium (Augmentin Tab) 875 mg BIDM PO 02/24/17 09:00 02/28/17 08:59 02/27/17 08:41 875 MG Furosemide (Lasix Tab) 60 mg BID17 PO 02/24/17 17:00 03/25/17 08:59 02/27/17 08:40 60 MG Potassium Chloride (Klor-Con Tab) 20 meq QAM PO 02/27/17 09:00 03/29/17 08:59 02/27/17 08:40 20 MEQ Nystatin (Mycostatin Susp) 5 ml QID PO 02/27/17 13:00 03/09/17 12:59 Objective Vital Signs Date Time Temp Pulse Resp B/P (MAP) Pulse Ox O2 Delivery O2 Flow Rate FiO2 02/27/17 08:50 Room Air 02/27/17 08:02 37.3 86 16 91/46 (61) 91 Room Air 02/27/17 08:00 91 Room Air 02/27/17 00:00 Room Air 02/27/17 00:00 36.7 84 20 97/59 (72) 94 Room Air 02/26/17 20:03 96 22 92 Room Air 02/26/17 16:57 89 18 104/66 (79) 93 Room Air 02/26/17 16:01 92 Room Air 02/26/17 15:55 36.8 83 18 95/58 (70) 92 Room Air 96/57 (70) 02/26/17 12:20 36.5 92 18 102/59 (73) 92 Room Air Physical Exam General Appearance: WD/WN, no apparent distress Eyes: PERRL, EOMI, + pertinent finding (slightly icteric sclera) Neck: supple, no JVD, trachea midline Respiratory/Chest: normal breath sounds, no respiratory distress, no accessory muscle use Cardiovascular: regular rate, rhythm, no gallop, no murmur Abdomen: normal bowel sounds, non tender, soft Extremities: normal inspection, no pedal edema, no calf tenderness Neurologic/Psych: alert, normal mood/affect, oriented x 3 Skin: + jaundice, + pertinent finding (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 ) Laboratory Results Last 24 Hours Test 02/27/17 06:53 02/27/17 09:15 White Blood Count 5.86 K/uL Red Blood Count 2.61 M/uL Hemoglobin 8.4 g/dL Hematocrit 24.0 % Mean Corpuscular Volume 92.0 fL Mean Corpuscular Hemoglobin 32.2 pg Mean Corpuscular Hemoglobin Concent 35.0 g/dl Platelet Count 67 K/uL Mean Platelet Volume 10.9 fL Neutrophils (%) (Auto) 60.8 % Lymphocytes (%) (Auto) 4.9 % Monocytes (%) (Auto) 29.5 % Eosinophils (%) (Auto) 3.4 % Basophils (%) (Auto) 0.9 % Neutrophils # (Auto) 3.56 K/uL Lymphocytes # (Auto) 0.29 K/uL Monocytes # (Auto) 1.73 K/uL Eosinophils # (Auto) 0.20 K/uL Basophils # (Auto) 0.05 K/uL RDW Standard Deviation 65.1 fL RDW Coefficient of Variation 19.4 % Immature Granulocyte % (Auto) 0.5 % Immature Granulocyte # (Auto) 0.03 K/uL Platelet Estimate DECREASED Large Platelets 3+ Anisocytosis PRESENT Sodium Level 128 mmol/L Potassium Level 3.6 mmol/L Chloride Level 96 mmol/L Carbon Dioxide Level 27 mmol/L Anion Gap 5.0 mmol/L Blood Urea Nitrogen 7 mg/dl Creatinine 0.69 mg/dl Est Creatinine Clear Calc Drug Dose 101.6 ml/min Estimated GFR () 114.4 Estimated GFR (Non- 98.7 BUN/Creatinine Ratio 10.1 Random Glucose 73 mg/dl Calcium Level 8.2 mg/dl Assessment and Plan Patient is a 52 year old female w ETOH cirrhosis, admitted for weakness, hyponatremia (improving). Pt said last ETOH intake 01/17/17. Last paracentesis w 2.3L removed, no SBP noted. MELD 17, MELD Na 24. Plan - Lactulose 15g TID may titrate to goal BM 3-5 a day - Continue Protonix 40mg BID - Defer diuretic titration of dose by Nephrology, monitor Cr and electrolytes - 2g Na diet; 1.5L fluid restriction - Cortisol STIM test in process - Discussed w pt importance of quitting ETOH intake, advised to go through AA again. - Will help arrange for GI f/u upon her DC (follows Dr. Funk). I have seen, examined and agree with the plan as outlined by WILBERT Velazquez as above. -exam reveals soft abd -
--- NOTE | 2017-02-27 10:12 | DIAGNOSTIC IMAGING REPORT ---
CHEST 2 VIEWS ROUTINE HISTORY: r/o pneumonia COMPARISON: Chest 02/22/2017. FINDINGS: Progression of the small to moderate left pleural effusion and left basilar densities.. The heart is stable in size. No pneumothorax. No evidence for pulmonary edema. Right basilar linear densities are consistent with subsegmental atelectasis. IMPRESSION: Progression of the small to moderate left pleural effusion and left basilar consolidation. This may represent atelectasis or pneumonia. Recommend follow up to ensure resolution. Electronically signed by: Michael De Leon M.D. 02/27/2017 10:11 AM Dictated Date/Time: 02/27/2017 10:10 AM
[2017-02-27] MEDS: NYSTATIN SUSP 500,000 U/5 ML UDC PO SCH ×3 (12:25→20:38)
--- NOTE | 2017-02-27 12:37 | Progress Note ---
Internal Med Progress Note Date of Service: Feb 27, 2017. Provider Documentation: SUBJECTIVE: The patient was seen and examined Generally weak and lethargic Has some pain left lower chest Much brighter today OBJECTIVE: Vital Signs-as noted below Exam: General-No distress at rest Eyes-normal ENT-normal Neck-supple Lungs-clear to ausucltate bilaterally Decreased breath sound at the left base Heart-Regular,no murmur appreciated Abdomen-Benign,no masses,bowel sound present Mild tenderness left flunk area ,the site of paracentesis Extremities-Trace edema bilaterally Neuro-AAOc3 Generally weak Lab data as noted below. ASSESSMENT & PLAN: Chronic Anemia Hb 9.6 to 7.9 Type and Hold 2 units Transfuse of Hb <7.0 Hb >8 on 02/27/17 Acute on chronic hyponatremia -hx of cirrhosis with Fluid Overload -fluid restriction -appreciate Nephrology input and recommendation -Has been on Lasix 60mg IV BID-changed to oral -Sodium is stable at 129 -Remains stable but needs further improvement -can be discharged when level ~130 -sodium 128 today -increased Lasix to 80 mg PO BID -continue water restriction to 1500 mls/day Decompensated cirrhosis. Painful ascites:s/p paracentesis with 2.4lts taken out- no SBP Increased midodrine to improve BP Generally weak but remains stable OP GI appointment Urinary tract infection, no sepsis. on Augmentin f/u cx-negative Continue Augmentin for now Chest pain. shortness of breath -most likely Old rib fractures -CTA chest no Pe - moderate left pleural effusion -CXR-left lower lobe atelectasis/consolidation -may need to change antibiotic Lower extremity swelling secondary to decompensated cirrhosis No DVT. Past alcohol abuse. No withdrawal symptoms AA as an OP Orthostatic hypotension on Midodrine. -increased midodrine to 5mg tid Ongoing tobacco abuse. DVT PROPHYLAXIS Thrombocytopenia;No Pharmacologic anticoagulation scds DISPOSITION Awaited Vital Signs: Date Time Temp Pulse Resp B/P (MAP) Pulse Ox O2 Delivery O2 Flow Rate FiO2 02/27/17 11:42 92 18 102/55 (71) 92 Room Air 02/27/17 08:50 Room Air 02/27/17 08:02 37.3 86 16 91/46 (61) 91 Room Air 02/27/17 08:00 91 Room Air 02/27/17 00:00 Room Air 02/27/17 00:00 36.7 84 20 97/59 (72) 94 Room Air 02/26/17 20:03 96 22 92 Room Air 02/26/17 16:57 89 18 104/66 (79) 93 Room Air 02/26/17 16:01 92 Room Air 02/26/17 15:55 36.8 83 18 95/58 (70) 92 Room Air 96/57 (70) Lab Results: Results Past 24 Hours Test 02/27/17 06:53 02/27/17 09:15 Range/Units White Blood Count 5.86 4.8-10.8 K/uL Red Blood Count 2.61 4.2-5.4 M/uL Hemoglobin 8.4 12.0-16.0 g/dL Hematocrit 24.0 37-47 % Mean Corpuscular Volume 92.0 80-100 fL Mean Corpuscular Hemoglobin 32.2 25-34 pg Mean Corpuscular Hemoglobin Concent 35.0 32-36 g/dl Platelet Count 67 130-400 K/uL Mean Platelet Volume 10.9 7.4-10.4 fL Neutrophils (%) (Auto) 60.8 % Lymphocytes (%) (Auto) 4.9 % Monocytes (%) (Auto) 29.5 % Eosinophils (%) (Auto) 3.4 % Basophils (%) (Auto) 0.9 % Neutrophils # (Auto) 3.56 1.4-6.5 K/uL Lymphocytes # (Auto) 0.29 1.2-3.4 K/uL Monocytes # (Auto) 1.73 0.11-0.59 K/uL Eosinophils # (Auto) 0.20 0-0.5 K/uL Basophils # (Auto) 0.05 0-0.2 K/uL RDW Standard Deviation 65.1 36.4-46.3 fL RDW Coefficient of Variation 19.4 11.5-14.5 % Immature Granulocyte % (Auto) 0.5 % Immature Granulocyte # (Auto) 0.03 0.00-0.02 K/uL Platelet Estimate DECREASED Large Platelets 3+ Anisocytosis PRESENT Sodium Level 128 136-145 mmol/L Potassium Level 3.6 3.5-5.1 mmol/L Chloride Level 96 98-107 mmol/L Carbon Dioxide Level 27 21-32 mmol/L Anion Gap 5.0 3-11 mmol/L Blood Urea Nitrogen 7 7-18 mg/dl Creatinine 0.69 0.60-1.20 mg/dl Est Creatinine Clear Calc Drug Dose 101.6 ml/min Estimated GFR () 114.4 Estimated GFR (Non- 98.7 BUN/Creatinine Ratio 10.1 10-20 Random Glucose 73 70-99 mg/dl Calcium Level 8.2 8.5-10.1 mg/dl Cortisol Response to Stimulation Cortisol Baseline
[2017-02-27] MEDS: FUROSEMIDE 80 MG TAB PO SCH (17:38)
--- NOTE | 2017-02-27 17:52 | Nephrology Progress Note ---
Nephrology Progress Note Date of Service: Feb 27, 2017. Subjective no c/o except thirst. ambulating well; cont to struggle w/ fluid limit. Objective Date Time Temp Pulse Resp B/P (MAP) Pulse Ox O2 Delivery O2 Flow Rate FiO2 02/27/17 17:33 90 18 100/70 (80) 94 Room Air 02/27/17 16:00 94 Room Air 02/27/17 15:40 36.6 86 18 95/58 (70) 94 Room Air 02/27/17 11:42 92 18 102/55 (71) 92 Room Air 02/27/17 08:50 Room Air 02/27/17 08:02 37.3 86 16 91/46 (61) 91 Room Air 02/27/17 08:00 91 Room Air 02/27/17 00:00 Room Air 02/27/17 00:00 36.7 84 20 97/59 (72) 94 Room Air 02/26/17 20:03 96 22 92 Room Air Physical Exam: General-on RA maneuvers readily for exam, nad HEENT: Mucous membrans moist. NECK: Supple. SKIN: nonpruritic upper body diffuse rash w/ macules and patches CHEST: Decreased breath sounds. CARDIOVASCULAR: Regular rate and rhythm. ABDOMEN: soft NT + fluid wave; no sears EXTREMITIES: at most trace lower extremity edema. no c/c NEUROLOGIC: awake, alert, and oriented at this time, moving all 4 extremities. Normal speech and following commands. Current Inpatient Medications Medications (Trade) Dose Ordered Sig/Betty Route Start Time Stop Time Status Last Admin Dose Admin Acetaminophen (Tylenol Tab) 325 mg Q6H PRN PO 02/22/17 22:15 03/24/17 22:14 Escitalopram Oxalate (Lexapro Tab) 10 mg QAM PO 02/23/17 09:00 03/25/17 08:59 02/27/17 08:40 10 MG Lorazepam (Ativan Tab) 0.5 mg BID PRN PO 02/22/17 22:15 03/24/17 22:14 02/27/17 17:38 0.5 MG Multivitamins/ Minerals (Multivitamin W/ Minerals Tab) 1 tab DAILY PO 02/23/17 09:00 03/25/17 08:59 02/27/17 08:39 1 TAB Pantoprazole Sodium (Protonix Tab) 40 mg BID PO 02/23/17 09:00 03/25/17 08:59 02/27/17 08:39 40 MG Tramadol HCl (Ultram Tab) pain not relieved by tylenol Q4H PRN PO 02/22/17 22:15 03/24/17 22:14 02/27/17 17:38 50 MG Thiamine HCl (Vitamin B-1 Tab) 100 mg QAM PO 02/23/17 09:00 03/25/17 08:59 02/27/17 08:39 100 MG Folic Acid (Folvite Tab) 1 mg QAM PO 02/23/17 09:00 03/25/17 08:59 02/27/17 08:40 1 MG Ondansetron HCl (Zofran Inj) 4 mg Q6H PRN IV 02/22/17 22:15 03/24/17 22:14 Morphine Sulfate (MoRPHine SULFATE INJ) 2 mg Q3H PRN IV 02/22/17 22:15 03/08/17 22:14 Midodrine (Proamatine Tab) 5 mg TID@,, PO 02/23/17 08:00 03/25/17 07:59 02/27/17 16:51 5 MG Albuterol/ Ipratropium (Duoneb) 3 ml Q2H PRN INH 02/22/17 23:00 03/24/17 22:59 02/26/17 20:03 3 ML Spironolactone (Aldactone Tab) 25 mg QAM PO 02/23/17 09:00 03/25/17 08:59 02/27/17 08:39 25 MG Lactulose (Chronulac Syrup) 15 gm TID PO 02/24/17 09:00 03/25/17 08:59 02/27/17 13:59 15 GM Amoxicillin/ Clavulanate Potassium (Augmentin Tab) 875 mg BIDM PO 02/24/17 09:00 02/28/17 08:59 02/27/17 16:51 875 MG Potassium Chloride (Klor-Con Tab) 20 meq QAM PO 02/27/17 09:00 03/29/17 08:59 02/27/17 08:40 20 MEQ Nystatin (Mycostatin Susp) 5 ml QID PO 02/27/17 13:00 03/09/17 12:59 9/6/17 16:51 5 ML Furosemide (Lasix Tab) 80 mg BID17 PO 02/27/17 17:00 03/29/17 16:59 02/27/17 17:38 80 MG Last 24 Hours Test 02/27/17 06:53 02/27/17 09:15 White Blood Count 5.86 K/uL Red Blood Count 2.61 M/uL Hemoglobin 8.4 g/dL Hematocrit 24.0 % Mean Corpuscular Volume 92.0 fL Mean Corpuscular Hemoglobin 32.2 pg Mean Corpuscular Hemoglobin Concent 35.0 g/dl Platelet Count 67 K/uL Mean Platelet Volume 10.9 fL Neutrophils (%) (Auto) 60.8 % Lymphocytes (%) (Auto) 4.9 % Monocytes (%) (Auto) 29.5 % Eosinophils (%) (Auto) 3.4 % Basophils (%) (Auto) 0.9 % Neutrophils # (Auto) 3.56 K/uL Lymphocytes # (Auto) 0.29 K/uL Monocytes # (Auto) 1.73 K/uL Eosinophils # (Auto) 0.20 K/uL Basophils # (Auto) 0.05 K/uL RDW Standard Deviation 65.1 fL RDW Coefficient of Variation 19.4 % Immature Granulocyte % (Auto) 0.5 % Immature Granulocyte # (Auto) 0.03 K/uL Platelet Estimate DECREASED Large Platelets 3+ Anisocytosis PRESENT Sodium Level 128 mmol/L Potassium Level 3.6 mmol/L Chloride Level 96 mmol/L Carbon Dioxide Level 27 mmol/L Anion Gap 5.0 mmol/L Blood Urea Nitrogen 7 mg/dl Creatinine 0.69 mg/dl Est Creatinine Clear Calc Drug Dose 101.6 ml/min Estimated GFR () 114.4 Estimated GFR (Non- 98.7 BUN/Creatinine Ratio 10.1 Random Glucose 73 mg/dl Calcium Level 8.2 mg/dl Cortisol Response to Stimulation Cortisol Baseline Assessment & Plan 52-year-old female with alcoholic cirrhosis admitted with volume overload, UTI, hypervolemic hyponatremia. Hypervolemic hyponatremia from liver disease complicated by symptomatic hypotension -increase lasix to 80 mg po bid -reinforced importance of fluid limit 1.5 L currently and of cooperating w/ nursing efforts to track output -cont midodrine and current spironolactone dosing -cont <2 gm daily Na diet -I gave some oral K today > continue standing am dose -GI did adrenal insufficiency labs this am -once daily labs appropriate Appreciate consult; will follow with you. Care coordinated w/ arnulfo tobin
[2017-02-27] MEDS: ALBUTEROL HFA 8 GM INHALER INH PRN (19:07)
[2017-02-28] MEDS: TRAMADOL HCL 50 MG TAB PO PRN ×4 (01:33→16:41)
[2017-02-28 06:43] LABS: HEMATOCRIT 25.9 % (37-47); MEAN CELL VOLUME 92.8 fL (80-100); MEAN CORPUSCULAR HEMOGLOBIN 31.9 pg (25-34); MEAN CORPUSCULAR HGB CONC 34.4 g/dl (32-36); RED BLOOD COUNT 2.79 M/uL (4.2-5.4); WHITE BLOOD COUNT 7.07 K/uL (4.8-10.8)
[2017-02-28 07:10] VITALS: BP 99/49; PULSE 91; TEMP 37.4; O2SAT 92
[2017-02-28 07:19] LABS: CALCIUM 8.4 mg/dl (8.5-10.1); CREATININE 0.79 mg/dl (0.60-1.20); POTASSIUM 4.2 mmol/L (3.5-5.1)
[2017-02-28 07:23] LABS: MEAN PLATELET VOLUME 11.9 fL (7.4-10.4); PLATELET COUNT 86 K/uL (130-400)
[2017-02-28 07:27] LABS: ANISOCYTOSIS PRESENT; BASO % 0.8 %; BASO ABS # 0.06 K/uL (0-0.2); COMPLETE YES; EOS % 6.5 %; GIANT PLATELETS 1+; IG% 0.6 %; LYMPH % 9.8 %; LYMPH ABS # 0.69 K/uL (1.2-3.4); MONO % 24.9 %; NEUT % 57.4 %
[2017-02-28 07:45] VITALS: O2SAT 92
[2017-02-28] MEDS: LORAZEPAM 0.5 MG TAB PO PRN ×2 (08:12→22:59)
[2017-02-28] MEDS: FUROSEMIDE 80 MG TAB PO SCH ×2 (08:13→18:13)
[2017-02-28] MEDS: CEROVITE ADV FORMULA TAB PO SCH (08:13)
[2017-02-28] MEDS: ESCITALOPRAM OXALATE 10 MG TAB PO SCH (08:13)
[2017-02-28] MEDS: POTASSIUM CHLORIDE 20 MEQ TABCR PO SCH (08:13)
[2017-02-28] MEDS: PANTOprazole SOD 40 MG TAB PO SCH ×2 (08:14→22:08)
[2017-02-28] MEDS: NYSTATIN SUSP 500,000 U/5 ML UDC PO SCH ×4 (08:14→21:00)
[2017-02-28] MEDS: MIDODRINE 2.5 MG TAB PO SCH ×3 (08:14→16:41)
[2017-02-28] MEDS: AMOXICILLIN/CLAVULANATE TAB 875 MG TAB PO SCH (08:14)
[2017-02-28] MEDS: SPIRONOLACTONE 25 MG TAB PO SCH (08:14)
[2017-02-28] MEDS: LACTULOSE SYRUP 10 GM/15 ML BTL 473 ML PO SCH ×3 (08:14→22:08)
[2017-02-28] MEDS: THIAMINE HCL 100 MG TAB PO SCH (08:14)
--- NOTE | 2017-02-28 14:23 | Progress Note ---
Internal Med Progress Note Date of Service: Feb 28, 2017. Provider Documentation: SUBJECTIVE: The patient was seen and examined Generally weak and lethargic Much better today Ambulating by herself OBJECTIVE: Vital Signs-as noted below Exam: General-No distress at rest Eyes-normal ENT-normal Neck-supple Lungs-clear to ausucltate bilaterally Decreased breath sound at the left base Heart-Regular,no murmur appreciated Abdomen-Benign,no masses,bowel sound present Mild tenderness left flunk area ,the site of paracentesis Extremities-Trace edema bilaterally Neuro-AAOc3 Generally weak Lab data as noted below. ASSESSMENT & PLAN: Chronic Anemia Hb 9.6 to 7.9 Type and Hold 2 units Transfuse of Hb <7.0 Hb 8.9 today 02/28/17 Acute on chronic hyponatremia -hx of cirrhosis with Fluid Overload -fluid restriction -appreciate Nephrology input and recommendation -Has been on Lasix 60mg IV BID-changed to oral -Sodium is stable at 129 -Remains stable but needs further improvement -can be discharged when level ~130 -sodium 128 today -increased Lasix to 80 mg PO BID -continue water restriction to 1500 mls/day -Sodium remain low at 128 for the last few days -monitor and likely discharge when the level >130 Decompensated cirrhosis. Painful ascites:s/p paracentesis with 2.4lts taken out- no SBP Increased midodrine to improve BP Generally weak but remains stable OP GI appointment Urinary tract infection, no sepsis. on Augmentin f/u cx-negative Continue Augmentin for now to cover possible LLL infiltration Chest pain. shortness of breath -most likely Old rib fractures -CTA chest no Pe - moderate left pleural effusion -CXR-left lower lobe atelectasis/consolidation -may need to change antibiotic Lower extremity swelling secondary to decompensated cirrhosis No DVT. Past alcohol abuse. No withdrawal symptoms AA as an OP Orthostatic hypotension on Midodrine. -increased midodrine to 5mg tid Ongoing tobacco abuse. DVT PROPHYLAXIS Thrombocytopenia;No Pharmacologic anticoagulation scds DISPOSITION Awaited Vital Signs: Date Time Temp Pulse Resp B/P (MAP) Pulse Ox O2 Delivery O2 Flow Rate FiO2 02/28/17 07:45 92 Room Air 02/28/17 07:10 37.4 91 20 99/49 (66) 92 Room Air 02/28/17 00:00 Room Air 02/27/17 23:38 36.7 89 20 103/59 (74) 91 Room Air 02/27/17 17:33 90 18 100/70 (80) 94 Room Air 02/27/17 16:00 94 Room Air 02/27/17 15:40 36.6 86 18 95/58 (70) 94 Room Air Lab Results: Results Past 24 Hours Test 02/28/17 06:19 Range/Units White Blood Count 7.07 4.8-10.8 K/uL Red Blood Count 2.79 4.2-5.4 M/uL Hemoglobin 8.9 12.0-16.0 g/dL Hematocrit 25.9 37-47 % Mean Corpuscular Volume 92.8 80-100 fL Mean Corpuscular Hemoglobin 31.9 25-34 pg Mean Corpuscular Hemoglobin Concent 34.4 32-36 g/dl Platelet Count 86 130-400 K/uL Mean Platelet Volume 11.9 7.4-10.4 fL Neutrophils (%) (Auto) 57.4 % Lymphocytes (%) (Auto) 9.8 % Monocytes (%) (Auto) 24.9 % Eosinophils (%) (Auto) 6.5 % Basophils (%) (Auto) 0.8 % Neutrophils # (Auto) 4.06 1.4-6.5 K/uL Lymphocytes # (Auto) 0.69 1.2-3.4 K/uL Monocytes # (Auto) 1.76 0.11-0.59 K/uL Eosinophils # (Auto) 0.46 0-0.5 K/uL Basophils # (Auto) 0.06 0-0.2 K/uL RDW Standard Deviation 65.9 36.4-46.3 fL RDW Coefficient of Variation 19.4 11.5-14.5 % Immature Granulocyte % (Auto) 0.6 % Immature Granulocyte # (Auto) 0.04 0.00-0.02 K/uL Giant Platelets 1+ Anisocytosis PRESENT Sodium Level 128 136-145 mmol/L Potassium Level 4.2 3.5-5.1 mmol/L Chloride Level 96 98-107 mmol/L Carbon Dioxide Level 26 21-32 mmol/L Anion Gap 6.0 3-11 mmol/L Blood Urea Nitrogen 9 7-18 mg/dl Creatinine 0.79 0.60-1.20 mg/dl Est Creatinine Clear Calc Drug Dose 88.7 ml/min Estimated GFR () 98.4 Estimated GFR (Non- 84.9 BUN/Creatinine Ratio 11.0 10-20 Random Glucose 83 70-99 mg/dl Calcium Level 8.4 8.5-10.1 mg/dl
[2017-02-28 14:50] VITALS: BP 94/58; PULSE 76; TEMP 36.5; O2SAT 93
[2017-02-28 16:00] VITALS: O2SAT 93
--- NOTE | 2017-02-28 16:36 | Nephrology Progress Note ---
Nephrology Progress Note Date of Service: Feb 28, 2017. Subjective 52 yo female with alcoholic liver disease who no longer drinks. pt with hypervolemic hyponatremia currently on fluid restriction and lasix. continues to have leg swelling but improving. Objective Date Time Temp Pulse Resp B/P (MAP) Pulse Ox O2 Delivery O2 Flow Rate FiO2 02/28/17 14:50 36.5 76 20 94/58 (70) 93 Room Air 02/28/17 07:45 92 Room Air 02/28/17 07:10 37.4 91 20 99/49 (66) 92 Room Air 02/28/17 00:00 Room Air 02/27/17 23:38 36.7 89 20 103/59 (74) 91 Room Air 02/27/17 17:33 90 18 100/70 (80) 94 Room Air Physical Exam: General-aaox3 Eyes-no scleral icterus ENT-mmm Neck-supple Lungs-decreased at bases Heart-rrr Abdomen-bs+, mildly distended Extremities-+1 to 2 edema-tense Neuro-nonfocal Current Inpatient Medications Medications (Trade) Dose Ordered Sig/Betty Route Start Time Stop Time Status Last Admin Dose Admin Acetaminophen (Tylenol Tab) 325 mg Q6H PRN PO 02/22/17 22:15 03/24/17 22:14 Escitalopram Oxalate (Lexapro Tab) 10 mg QAM PO 02/23/17 09:00 03/25/17 08:59 02/28/17 08:13 10 MG Lorazepam (Ativan Tab) 0.5 mg BID PRN PO 02/22/17 22:15 03/24/17 22:14 02/28/17 08:12 0.5 MG Multivitamins/ Minerals (Multivitamin W/ Minerals Tab) 1 tab DAILY PO 02/23/17 09:00 03/25/17 08:59 02/28/17 08:13 1 TAB Pantoprazole Sodium (Protonix Tab) 40 mg BID PO 02/23/17 09:00 03/25/17 08:59 02/28/17 08:14 40 MG Tramadol HCl (Ultram Tab) pain not relieved by tylenol Q4H PRN PO 02/22/17 22:15 03/24/17 22:14 02/28/17 11:50 50 MG Thiamine HCl (Vitamin B-1 Tab) 100 mg QAM PO 02/23/17 09:00 03/25/17 08:59 02/28/17 08:14 100 MG Folic Acid (Folvite Tab) 1 mg QAM PO 02/23/17 09:00 03/25/17 08:59 02/28/17 08:13 1 MG Ondansetron HCl (Zofran Inj) 4 mg Q6H PRN IV 02/22/17 22:15 03/24/17 22:14 Morphine Sulfate (MoRPHine SULFATE INJ) 2 mg Q3H PRN IV 02/22/17 22:15 03/08/17 22:14 Midodrine (Proamatine Tab) 5 mg TID@,,17 PO 02/23/17 08:00 03/25/17 07:59 02/28/17 11:48 5 MG Albuterol/ Ipratropium (Duoneb) 3 ml Q2H PRN INH 02/22/17 23:00 03/24/17 22:59 02/26/17 20:03 3 ML Spironolactone (Aldactone Tab) 25 mg QAM PO 02/23/17 09:00 03/25/17 08:59 02/28/17 08:14 25 MG Lactulose (Chronulac Syrup) 15 gm TID PO 02/24/17 09:00 03/25/17 08:59 02/28/17 14:02 15 GM Potassium Chloride (Klor-Con Tab) 20 meq QAM PO 02/27/17 09:00 03/29/17 08:59 02/28/17 08:13 20 MEQ Nystatin (Mycostatin Susp) 5 ml QID PO 02/27/17 13:00 03/09/17 12:59 02/28/17 14:02 5 ML Furosemide (Lasix Tab) 80 mg BID17 PO 02/27/17 17:00 03/29/17 16:59 02/28/17 08:13 80 MG Albuterol (Ventolin Hfa Inhaler) 2 puffs Q6 PRN INH 02/27/17 18:30 03/29/17 18:29 02/27/17 19:07 2 PUFFS Last 24 Hours Test 02/28/17 06:19 White Blood Count 7.07 K/uL Red Blood Count 2.79 M/uL Hemoglobin 8.9 g/dL Hematocrit 25.9 % Mean Corpuscular Volume 92.8 fL Mean Corpuscular Hemoglobin 31.9 pg Mean Corpuscular Hemoglobin Concent 34.4 g/dl Platelet Count 86 K/uL Mean Platelet Volume 11.9 fL Neutrophils (%) (Auto) 57.4 % Lymphocytes (%) (Auto) 9.8 % Monocytes (%) (Auto) 24.9 % Eosinophils (%) (Auto) 6.5 % Basophils (%) (Auto) 0.8 % Neutrophils # (Auto) 4.06 K/uL Lymphocytes # (Auto) 0.69 K/uL Monocytes # (Auto) 1.76 K/uL Eosinophils # (Auto) 0.46 K/uL Basophils # (Auto) 0.06 K/uL RDW Standard Deviation 65.9 fL RDW Coefficient of Variation 19.4 % Immature Granulocyte % (Auto) 0.6 % Immature Granulocyte # (Auto) 0.04 K/uL Giant Platelets 1+ Anisocytosis PRESENT Sodium Level 128 mmol/L Potassium Level 4.2 mmol/L Chloride Level 96 mmol/L Carbon Dioxide Level 26 mmol/L Anion Gap 6.0 mmol/L Blood Urea Nitrogen 9 mg/dl Creatinine 0.79 mg/dl Est Creatinine Clear Calc Drug Dose 88.7 ml/min Estimated GFR () 98.4 Estimated GFR (Non- 84.9 BUN/Creatinine Ratio 11.0 Random Glucose 83 mg/dl Calcium Level 8.4 mg/dl Assessment & Plan hyponatremia-sodium levels are slowly improving. thought to be from hypervolemic hyponatremia on fluid restriction and lasix. to recheck sodium levels tomorrow. if sodium levels are stable ok from renal perspective to go home and recheck bmp on saturday as oupt and weekly x 2. hypokalemia-k of 4.2 on appropriate potassium supplementation.
[2017-02-28] MEDS: ALBUTEROL HFA 8 GM INHALER INH PRN (16:44)
[2017-02-28 18:14] VITALS: BP 98/60
[2017-02-28] MEDS: MoRPHine SULFATE 2 MG/ML CARP IV PRN (22:08)
[2017-03-01] VITALS (7 sets, daily range): BP systolic 92–96; BP diastolic 56–58; PULSE 81–94; TEMP 36.6–37.1; O2SAT 91–94
[2017-03-01 06:20] LABS: MEAN CORPUSCULAR HEMOGLOBIN 31.6 pg (25-34); MEAN CORPUSCULAR HGB CONC 33.6 g/dl (32-36); RED BLOOD COUNT 2.66 M/uL (4.2-5.4); WHITE BLOOD COUNT 7.98 K/uL (4.8-10.8)
[2017-03-01 06:22] LABS: MEAN PLATELET VOLUME 11.5 fL (7.4-10.4); PLATELET COUNT 90 K/uL (130-400)
[2017-03-01 06:53] LABS: BUN/CREATININE RATIO 10.3 (10-20); CREATININE 0.94 mg/dl (0.60-1.20); POTASSIUM 4.2 mmol/L (3.5-5.1)
[2017-03-01 07:33] LABS: ANISOCYTOSIS PRESENT; BASO % 0.8 %; BASO ABS # 0.06 K/uL (0-0.2); COMPLETE YES; EOS % 6.8 %; IG% 0.4 %; LARGE PLATELETS 2+; LYMPH % 15.5 %; LYMPH ABS # 1.24 K/uL (1.2-3.4); MONO % 17.4 %; NEUT % 59.1 %
[2017-03-01] MEDS: MoRPHine SULFATE 2 MG/ML CARP IV PRN (07:54)
[2017-03-01] MEDS: MIDODRINE 2.5 MG TAB PO SCH ×2 (08:00→11:52)
[2017-03-01] MEDS: LACTULOSE SYRUP 10 GM/15 ML BTL 473 ML PO SCH (08:24)
[2017-03-01] MEDS: POTASSIUM CHLORIDE 20 MEQ TABCR PO SCH (08:25)
[2017-03-01] MEDS: SPIRONOLACTONE 25 MG TAB PO SCH (08:26)
[2017-03-01] MEDS: FUROSEMIDE 80 MG TAB PO SCH (08:26)
[2017-03-01] MEDS: PANTOprazole SOD 40 MG TAB PO SCH (08:27)
[2017-03-01] MEDS: THIAMINE HCL 100 MG TAB PO SCH (08:27)
[2017-03-01] MEDS: NYSTATIN SUSP 500,000 U/5 ML UDC PO SCH ×2 (08:27→12:53)
[2017-03-01] MEDS: ESCITALOPRAM OXALATE 10 MG TAB PO SCH (08:27)
[2017-03-01] MEDS: CEROVITE ADV FORMULA TAB PO SCH (08:27)
[2017-03-01] MEDS: LORAZEPAM 0.5 MG TAB PO PRN (08:36)
[2017-03-01] MEDS: ALBUTEROL HFA 8 GM INHALER INH PRN (08:42)
--- NOTE | 2017-03-01 12:40 | Progress Note ---
Internal Med Progress Note Date of Service: Mar 01, 2017. Provider Documentation: SUBJECTIVE: The patient was seen and examined Generally weak and lethargic Ready to be discharged Denies any complaints OBJECTIVE: Vital Signs-as noted below Exam: General-No distress at rest Has generalized rash-non specific Eyes-normal ENT-normal Neck-supple Lungs-clear to ausucltate bilaterally Decreased breath sound at the left base Heart-Regular,no murmur appreciated Abdomen-Benign,no masses,bowel sound present Mild tenderness left flunk area ,the site of paracentesis Extremities-1+ edema bilaterally Neuro-AAOc3 Generally weak Lab data as noted below. ASSESSMENT & PLAN: Chronic Anemia Hb 9.6 to 7.9 Type and Hold 2 units Transfuse of Hb <7.0 Hb 8.9 today 02/28/17,8.4 on 03/01/17 Acute on chronic hyponatremia -hx of cirrhosis with Fluid Overload -fluid restriction -appreciate Nephrology input and recommendation -Has been on Lasix 60mg IV BID-changed to oral -Sodium is stable at 129 -Remains stable but needs further improvement -can be discharged when level ~130 -sodium 128 today -increased Lasix to 80 mg PO BID -continue water restriction to 1500 mls/day -Sodium remain low at 128 for the last few days -Sodium 129 today -will discharge home -Discussed with the Custodial Services Manager Decompensated cirrhosis. Painful ascites:s/p paracentesis with 2.4lts taken out- no SBP Increased midodrine to improve BP Generally weak but remains stable OP GI appointment Urinary tract infection, no sepsis. on Augmentin f/u cx-negative Continue Augmentin for now to cover possible LLL infiltration Will continue a total of 10 days course of Augmentin Chest pain. shortness of breath -most likely Old rib fractures -CTA chest no Pe - moderate left pleural effusion -CXR-left lower lobe atelectasis/consolidation -may need to change antibiotic -remains stable on Augmentin Lower extremity swelling secondary to decompensated cirrhosis No DVT. Past alcohol abuse. No withdrawal symptoms AA as an OP Orthostatic hypotension on Midodrine. -increased midodrine to 5mg tid Ongoing tobacco abuse. DVT PROPHYLAXIS Thrombocytopenia;No Pharmacologic anticoagulation scds DISPOSITION Discharge today Vital Signs: Date Time Temp Pulse Resp B/P (MAP) Pulse Ox O2 Delivery O2 Flow Rate FiO2 03/01/17 12:18 36.6 92 18 94 Room Air 03/01/17 11:54 36.6 94 18 94/56 (69) 92 Room Air 92 03/01/17 09:04 37.1 92 13 92/58 (69) 94 Room Air 03/01/17 08:04 94 Room Air 03/01/17 08:00 91 Room Air 03/01/17 07:18 36.7 88 20 96/58 (71) 91 Room Air 03/01/17 00:12 36.7 81 18 96/56 (69) 93 Room Air 03/01/17 00:00 Room Air 02/28/17 20:00 Room Air 02/28/17 18:14 98/60 (73) 02/28/17 16:00 93 Room Air 02/28/17 14:50 36.5 76 20 94/58 (70) 93 Room Air Lab Results: Results Past 24 Hours Test 03/01/17 05:09 Range/Units White Blood Count 7.98 4.8-10.8 K/uL Red Blood Count 2.66 4.2-5.4 M/uL Hemoglobin 8.4 12.0-16.0 g/dL Hematocrit 25.0 37-47 % Mean Corpuscular Volume 94.0 80-100 fL Mean Corpuscular Hemoglobin 31.6 25-34 pg Mean Corpuscular Hemoglobin Concent 33.6 32-36 g/dl Platelet Count 90 130-400 K/uL Mean Platelet Volume 11.5 7.4-10.4 fL Neutrophils (%) (Auto) 59.1 % Lymphocytes (%) (Auto) 15.5 % Monocytes (%) (Auto) 17.4 % Eosinophils (%) (Auto) 6.8 % Basophils (%) (Auto) 0.8 % Neutrophils # (Auto) 4.72 1.4-6.5 K/uL Lymphocytes # (Auto) 1.24 1.2-3.4 K/uL Monocytes # (Auto) 1.39 0.11-0.59 K/uL Eosinophils # (Auto) 0.54 0-0.5 K/uL Basophils # (Auto) 0.06 0-0.2 K/uL RDW Standard Deviation 66.2 36.4-46.3 fL RDW Coefficient of Variation 19.3 11.5-14.5 % Immature Granulocyte % (Auto) 0.4 % Immature Granulocyte # (Auto) 0.03 0.00-0.02 K/uL Large Platelets 2+ Anisocytosis PRESENT Sodium Level 129 136-145 mmol/L Potassium Level 4.2 3.5-5.1 mmol/L Chloride Level 97 98-107 mmol/L Carbon Dioxide Level 27 21-32 mmol/L Anion Gap 5.0 3-11 mmol/L Blood Urea Nitrogen 10 7-18 mg/dl Creatinine 0.94 0.60-1.20 mg/dl Est Creatinine Clear Calc Drug Dose 74.6 ml/min Estimated GFR () 79.7 Estimated GFR (Non- 68.8 BUN/Creatinine Ratio 10.3 10-20 Random Glucose 71 70-99 mg/dl Calcium Level 8.0 8.5-10.1 mg/dl
[2017-03-01] MEDS ORDERED: LACT12LO EXT (12:47)
[2017-03-01] MEDS ORDERED: PRMT25 PO (12:47)
[2017-03-01] MEDS ORDERED: NYSS5 PO (12:47)
--- NOTE | 2017-03-01 12:51 | Discharge Instructions ---
Discharge Instructions Date of Service Mar 01, 2017. Admission Reason for Admission: Hyponatremia Discharge Discharge Diagnosis / Problem: Hyponatremia,Cirrhosis Discharge Goals Goal(s): Prevent Disease Progression Activity Recommendations Activity Limitations: resume your previous activity . Instructions / Follow-Up Instructions / Follow-Up Dr Hylton on 03/05/17 at 8:05 AM. Please keep appointment with GI and Nephrology.Please heck PRP and report to Dr Horan Current Hospital Diet Patient's current hospital diet: Low Sodium Diet (2gm Na) Discharge Diet Recommended Diet: Low Sodium Diet (2gm Na) Fluid Restriction: 1500 ml (6 cups) Pending Studies Studies pending at discharge: no Medical Emergencies . Who to Call and When: Medical Emergencies: If at any time you feel your situation is an emergency, please call 911 immediately. . Non-Emergent Contact Non-Emergency issues call your: Primary Care Provider . Past History Medical & Surgical History: (1) ALCOHOL CIRRHOSIS LIVER (2) DEPRESSIVE DISORDER NEC (3) ESOPHAGEAL REFLUX (4) Esophageal varices (5) Syncope and collapse (6) Hypokalemia (7) Hyponatremia (8) Ascites . "Provider Documentation" section prepared by Mervin Martell. . VTE Core Measure Inpt VTE Proph given/why not?: SCD's (Thrombocytopenia)
[2017-03-01] MEDS: TRAMADOL HCL 50 MG TAB PO PRN (12:54)
[2017-03-01] MEDS ORDERED: AMOX875T PO (13:38)
[2017-03-01] MEDS ORDERED: MCRK20 PO (13:38)
[2017-03-01] MEDS ORDERED: FLV1 PO (13:38)
[2017-03-01] MEDS ORDERED: THM100 PO (13:38)
--- NOTE | 2017-03-01 18:40 | Discharge Summary ---
Discharge Summary Date of Service Mar 01, 2017. Discharge Summary Admission Date: Feb 22, 2017 at 21:19 Discharge Date: Mar 01, 2017 Discharge Disposition: Home with services Principal Diagnosis: Hyponatremia,Cirrhosis Secondary Diagnoses/Problems: Please see H&P and Hospital progress note Consultations: Nephrology Medication Reconciliation New Medications: Amoxicillin & Pot Clavulanate (Augmentin 875-125 mg) 1 Tab Tab 875 MG PO BID for 3 Days, #6 TAB Lactic Acid (Ammonium Lactate) (Lac-Hydrin Twelve) 12 % Lot 1 APPLN EXT UD, #1 TUBE Folic Acid (Folic Acid) 1 Mg Tab 1 MG PO QAM for 30 Days, #30 TAB Midodrine (Midodrine HCl) 2.5 Mg Tab 5 MG PO TID@08,12,17 for 30 Days, #90 TAB Nystatin (Nystatin) 5 Ml Susp 5 ML PO QID for 7 Days, #30 DOSE Potassium Chloride (Klor-Con M20) 20 Meq Tabcr 20 MEQ PO QAM for 30 Days, #30 MEQ Thiamine HCl (Vitamin B-1) 100 Mg Tab 100 MG PO QAM for 30 Days, #30 TAB Continued Medications: Escitalopram (Lexapro) 10 Mg Tab 10 MG PO QAM Furosemide (Furosemide) 40 Mg Tab 40 MG PO BID17 for 30 Days, #60 TAB 2 Refills Lactulose (Lactulose) 30 Gm/45 Ml Syrp 45 ML PO UD for 30 Days, 2 Refills LACTULOSE 15-45ML PO 1-3 TIMES A DAY FOR 3-4 BOWEL MOVEMENTS A DAY Lorazepam (Ativan) 0.5 Mg Tab 0.5 MG PO BID PRN for Anxiety Multivitamins/Minerals (Mvi With Minerals) Tab 1 TAB PO DAILY for 30 Days, TAB 2 Refills Pantoprazole (Protonix) 40 Mg Tab 40 MG PO BID Spironolactone (Spironolactone) 25 Mg Tab 25 MG PO QAM, #30 TAB 2 Refills Thiamine HCl (Vitamin B-1) 100 Mg Tab 100 MG PO Q24H, #30 TAB 1 Refill Tramadol (Ultram) 50 Mg Tab 50 MG PO TID PRN for Pain, #30 TAB Discontinued Medications: Midodrine (Midodrine HCl) 2.5 Mg Tab 2.5 MG PO TID@08,12,17 for 30 Days, TAB 2 Refills Admission Information HPI (per Admitting provider): DATE OF ADMISSION: 02/22/2017 PRIMARY CARE DOCTOR: Dr. Hylton. CHIEF COMPLAINT: Dizziness, weakness, blood pressure low, chest pain, abdominal pain, shortness of breath, and worsening swelling. HISTORY OF PRESENT ILLNESS: History obtained from patient and records. Medical history significant for alcoholic cirrhosis, past alcohol abuse, ongoing tobacco abuse, history of esophageal varices, mood disorder; chronic anemia (baseline hemoglobin of 9-10), chronic hyponatremia, diverticulosis. Recent confinement about 2 weeks ago for hyponatremia secondary to cirrhosis. Patient was seen by Nephrology. Placed on fluid restriction and diuretic treatment. Patient also started on Midodrine for orthostatic hypotension. Patient also complaining of left upper quadrant pain that time. Underwent paracentesis - transudative fluid on analysis. Patient discharged home. As per patient in the last week increasing abd distention, nicole leg swelling, increasing pleuritic chest pain, shortness of breath. No unusual cough symptoms. Patient dizzy. No black no bloody stools. No emesis. Denies dysuria but urine smells funny, according to her. Patient feels confused. Patient seen at PCP's office complaining of fatigue and fluid retention. Advised to continue home diuretics. Px claims to be compliant with medications. Patient returned to PCP's office today. Blood pressure was noted to be low. Patient was brought to the ER because of worsening symptoms. MEDICAL HISTORY: As above. SURGERIES: Bilateral tubal ligation. HOME MEDICATIONS: Include Lexapro, Ativan, Protonix, midodrine, multivitamins, tramadol, furosemide, lactulose, spironolactone and thiamine. ALLERGIES: No known drug allergies. FAMILY HISTORY: Stroke and breast cancer. PERSONAL AND SOCIAL HISTORY: A few cigarettes a day, quit drinking last month. Currently unemployed. REVIEW OF SYSTEMS: As per HPI, all other ROS negative. PHYSICAL EXAMINATION: VITAL SIGNS: Blood pressure was noted to be 92/52, pulse rate 86, RR 18, temperature 36.7, sats 96% on room air. GENERAL: Noted to be slightly anxious, no respiratory distress. SKIN: Pallor. Spider angiomata. HEENT: Pale palpebral conjunctivae, dry mucosa. NECK: Short. CHEST: Decreased breath sounds. HEART: Regular rate and rhythm. ABDOMEN: Distention, epigastric tenderness. EXTREMITIES: Bilateral lower extremity edema, no tenderness. NEUROLOGIC: No gross focality. LABS: Hemoglobin was noted to be 9.6, hematocrit 28, white cells 6.7, platelets 76. Sodium noted to be 125, potassium 3, chloride 88, CO2 28, BUN 12, creatinine 1, glucose 100. AST 44, alk phos 253, lipase 174. IMAGING DATA: Chest x-ray showed bilateral rib fractures, chronic, no pneumothorax, small left pleural effusion, and atelectasis. Abdomen ultrasound showed small to moderate size, unchanged. Nitrite positive urine. ASSESSMENT: 1. Acute on chronic hyponatremia decompensated cirrhosis. 2. Painful ascites, possible SBP 3. Urinary tract infection, no sepsis. 4. Chest pain. shortness of breath possibly from Old rib fractures rule out pulmonary embolism 5. Lower extremity swelling secondary to decompensated cirrhosis Rule out DVT Past alcohol abuse. 6. Orthostatic hypotension on Midodrine. Patient still hypotensive on current regimen dose. Patient symptomatic at SBP 90s. 7. Ongoing tobacco abuse. 8. Hypokalemia secondary to diuretic therapy PLAN: PCU monitor sodium Fluid restriction, continue diuretic therapy. Replace K, check mag Nephrology consult. RE acute on chronic hyponatremia ff urine CS, IV Ceftriaxone for possible UTI IV albumin for possible SBP, diagnostic/therapeutic paracentesis GI consult. Painful ascites, decompensated cirrhosis CT chest, PE study. RE pleuritic chest pain, SOB Lower extremity venous Dopplers rule out DVT Increase Midodrine dose to 5 mg by mouth 3 times a day Nutrition consult as per patient request RE home dietary advice for cirrhotic patient PT/OT eval. Patient counseled to stop smoking. DVT prophylaxis, SCDs. RE thrombocytopenia Full code. Hospital Course Chronic Anemia Hb 9.6 to 7.9 Type and Hold 2 units Transfuse of Hb <7.0 Hb 8.9 today 02/28/17,8.4 on 03/01/17 Acute on chronic hyponatremia -hx of cirrhosis with Fluid Overload -fluid restriction -appreciate Nephrology input and recommendation -Has been on Lasix 60mg IV BID-changed to oral -Sodium is stable at 129 -Remains stable but needs further improvement -can be discharged when level ~130 -sodium 128 today -increased Lasix to 80 mg PO BID -continue water restriction to 1500 mls/day -Sodium remain low at 128 for the last few days -Sodium 129 today -will discharge home -Discussed with the Senior Python Developer Decompensated cirrhosis. Painful ascites:s/p paracentesis with 2.4lts taken out- no SBP Increased midodrine to improve BP Generally weak but remains stable OP GI appointment Urinary tract infection, no sepsis. on Augmentin f/u cx-negative Continue Augmentin for now to cover possible LLL infiltration Will continue a total of 10 days course of Augmentin Chest pain. shortness of breath -most likely Old rib fractures -CTA chest no Pe - moderate left pleural effusion -CXR-left lower lobe atelectasis/consolidation -may need to change antibiotic -remains stable on Augmentin Lower extremity swelling secondary to decompensated cirrhosis No DVT. Past alcohol abuse. No withdrawal symptoms AA as an OP Orthostatic hypotension on Midodrine. -increased midodrine to 5mg tid Ongoing tobacco abuse. DVT PROPHYLAXIS Thrombocytopenia;No Pharmacologic anticoagulation scds DISPOSITION Discharge today Total time spent on discharge = 35 minutes This includes examination of the patient, discharge planning, medication reconciliation, and communication with other providers. Discharge Instructions Date of Service Mar 01, 2017. Admission Reason for Admission: Hyponatremia Discharge Discharge Diagnosis / Problem: Hyponatremia,Cirrhosis Discharge Goals Goal(s): Prevent Disease Progression Activity Recommendations Activity Limitations: resume your previous activity . Instructions / Follow-Up Instructions / Follow-Up Dr Hylton on 03/05/17 at 8:05 AM. Please keep appointment with GI and Nephrology.Please heck PRP and report to Dr Horan Current Hospital Diet Patient's current hospital diet: Low Sodium Diet (2gm Na) Discharge Diet Recommended Diet: Low Sodium Diet (2gm Na) Fluid Restriction: 1500 ml (6 cups) Pending Studies Studies pending at discharge: no Medical Emergencies . Who to Call and When: Medical Emergencies: If at any time you feel your situation is an emergency, please call 911 immediately. . Non-Emergent Contact Non-Emergency issues call your: Primary Care Provider . Past History Medical & Surgical History: (1) ALCOHOL CIRRHOSIS LIVER (2) DEPRESSIVE DISORDER NEC (3) ESOPHAGEAL REFLUX (4) Esophageal varices (5) Syncope and collapse (6) Hypokalemia (7) Hyponatremia (8) Ascites . "Provider Documentation" section prepared by Mervin Martell. . VTE Core Measure Inpt VTE Proph given/why not?: SCD's (Thrombocytopenia) <Electronically signed by Mervin Martell M.D.> Signed: 03/01/17 7757 Additional Copies To Stef Hylton D.O.
[2017-03-12] MEDS ORDERED: SPR25 PO (20:57)
[2017-03-15] MEDS ORDERED: XFX550 PO (14:01)
[2017-03-15] MEDS ORDERED: ULT50X PO (15:00)
== END 2017-03-01 14:11 | disposition home or self-care (01) | DRG 641 ==
LOC: C.EDB 17:39 → C.2E 21:19 → ENRESERV 21:29 → C.MS2W 02-24 14:54
PROVIDERS: ADMIT Internal Medicine; ATTEND Internal Medicine
PROC: 0W9G3ZZ Drainage of Peritoneal Cavity, Percutaneous Approach (ICD-10-PCS; principal; 2017-02-24)
DX: E87.1 Hypo-osmolality and hyponatremia (principal); N39.0 Urinary tract infection, site not specified; J90 Pleural effusion, not elsewhere classified; K70.31 Alcoholic cirrhosis of liver with ascites; R07.9 Chest pain, unspecified; I95.1 Orthostatic hypotension; E87.6 Hypokalemia; D64.9 Anemia, unspecified; F17.210 Nicotine dependence, cigarettes, uncomplicated; Z79.899 Other long term (current) drug therapy

== ENCOUNTER 2017-03-12 16:30 | Inpatient (IN) | payer BC ==
[~2017-03-12] VITALS: Ht 165.1 cm; Wt 82.1 kg
[~2017-03-12 16:30] MED LIST changes: +FLV1 PO; +LACT12LO EXT; +MCRK20 PO; +NYSS5 PO; -ONDA4TAB65 PO
--- NOTE | 2017-03-12 17:07 | EMERGENCY ROOM VISIT NOTE ---
History Report prepared by Jackelin: Daniel Pérez Under the Supervision of: Dr. John Rosenthal M.D. First contact with patient: 16:47 Chief Complaint: EDEMA TO EXTREMITY Stated Complaint: WATER RETENTION History of Present Illness The patient is a 52 year old white female with a past medical history of cirrhosis who presents to the ED with a cc of worsening lower extremity beginning last month. Positive abdomen, hip, ankle swelling, shortness of breath , chest pain. Negative cough. She says that she was admitted here last week for a week and last month for 6 days for the same problems. The patient states that she saw her PCP earlier today (Dr. Hylton). She also follows-up with GI (Dr. Funk) and has an appointment scheduled. The patient adds that she has gained 7 pounds in the past week, and has not been eating as much. She takes Spirolactone and Lasix. Source of History: patient Onset: Last month Position: leg (bilateral) Quality: other (swelling) Timing: worsening Associated Symptoms: + chest pain, + SOB, No cough Note: Associated symptoms: Abdomen, hip, ankle swelling. Gained 7 pounds in past week. Review of Systems See HPI for pertinent positives and negatives. A total of ten systems were reviewed and were otherwise negative. Past Medical & Surgical Medical Problems: (1) AC ALCOHOLIC HEPATITIS (2) ALCOHOL CIRRHOSIS LIVER (3) Cirrhosis, alcoholic (4) Colitis (5) DEPRESSIVE DISORDER NEC (6) DUODENAL ULCER NOS (7) ESOPHAGEAL REFLUX (8) Esophageal varices (9) Syncope and collapse Family History Patient reports no known family medical history. Social History Smoking Status: Current Every Day Smoker Alcohol Use: heavy Drug Use: none, other Marital Status: Housing Status: lives with family Occupation Status: employed, other Current/Historical Medications Scheduled Escitalopram (Lexapro), 10 MG PO QAM Folic Acid (Folic Acid), 1 MG PO QAM Furosemide (Furosemide), 40 MG PO BID17 Lactic Acid (Ammonium Lactate) (Lac-Hydrin Twelve), 1 APPLN EXT UD Lactulose (Lactulose), 45 ML PO UD Midodrine (Midodrine HCl), 5 MG PO TID@08,12,17 Multivitamins/Minerals (Mvi With Minerals), 1 TAB PO DAILY Nystatin (Nystatin), 5 ML PO QID Pantoprazole (Protonix), 40 MG PO BID Potassium Chloride (Klor-Con M20), 20 MEQ PO QAM Spironolactone (Spironolactone), 25 MG PO QAM Thiamine HCl (Vitamin B-1), 100 MG PO Q24H Thiamine HCl (Vitamin B-1), 100 MG PO QAM Scheduled PRN Lorazepam (Ativan), 0.5 MG PO BID PRN for Anxiety Allergies Coded Allergies: No Known Allergies (Verified , 02/22/17) Physical Exam Vital Signs Date Time Temp Pulse Resp B/P (MAP) Pulse Ox O2 Delivery O2 Flow Rate FiO2 03/12/17 19:28 87 22 120/51 95 Room Air 03/12/17 18:00 89 21 96 03/12/17 17:45 85 20 03/12/17 17:31 119/42 03/12/17 17:30 88 22 96 03/12/17 17:15 90 23 95 03/12/17 17:10 115/46 03/12/17 17:03 92 03/12/17 16:56 97 Room Air 03/12/17 16:41 36.7 98 22 112/66 97 Room Air Physical Exam GENERAL: Awake, alert, well-appearing, NAD HENT: Normocephalic, atraumatic. EYES: Normal conjunctiva. Some scleral icterus nicole. NECK: Supple. No nuchal rigidity. FROM. RESPIRATORY: CTAB, no rhonchi, wheezing, crackles CARDIAC: RRR, no MRG. Ejection murmur. ABDOMEN: Soft, distended, no tenderness, BS+ MSK: No chest wall TTP, 4+ nicole LE edema, no asymmetry, calor or calf tenderness. NEURO: GCS 15, CN 2-12 intact, moves all 4s on command SKIN: Multiple telangiectasias over anterior chest. Medical Decision & Procedures ER Provider Diagnostic Interpretation: X-ray: Per my interpretation, radiologist review. CHEST ONE VIEW PORTABLE CLINICAL HISTORY: ABDOMINAL PAIN/GI pain. Nausea. COMPARISON STUDY: 02/27/2017 FINDINGS: Unchanging consolidative/effusion-type change left lung base. The right lung remains clear. Right hemidiaphragm is smooth. Moderate stable cardiomegaly. IMPRESSION: Unchanging left basilar effusion/basilar consolidation. No change from the prior study. The above report was generated using voice recognition software. It may contain grammatical, syntax or spelling errors. Electronically signed by: Mirza Spain M.D. 03/12/2017 5:21 PM Dictated Date/Time: 03/12/2017 5:18 PM Laboratory Results 03/12/17 17:45 Red Blood Count 2.78, Mean Corpuscular Volume 95.0, Mean Corpuscular Hemoglobin 33.1, Mean Corpuscular Hemoglobin Concent 34.8, Mean Platelet Volume 10.9, Neutrophils (%) (Auto) 67.8, Lymphocytes (%) (Auto) 17.5, Monocytes (%) (Auto) 10.1, Eosinophils (%) (Auto) 3.6, Basophils (%) (Auto) 0.7, Neutrophils # (Auto ) 4.75, Lymphocytes # (Auto) 1.23, Monocytes # (Auto) 0.71, Eosinophils # (Auto ) 0.25, Basophils # (Auto) 0.05 03/12/17 17:45 Test 03/12/17 17:00 03/12/17 17:45 Urine Color DK YELLOW Urine Appearance CLEAR (CLEAR) Urine pH 6.0 (4.5-7.5) Urine Specific [place] 1.017 (1.000-1.030) Urine Protein NEG (NEG) Urine Glucose (UA) NEG (NEG) Urine Ketones NEG (NEG) Urine Occult Blood NEG (NEG) Urine Nitrite NEG (NEG) Urine Bilirubin NEG (NEG) Urine Urobilinogen NEG (NEG) Urine Leukocyte Esterase SMALL (NEG) Urine WBC (Auto) 10-30 /hpf (0-5) Urine RBC (Auto) 0-4 /hpf (0-4) Urine Hyaline Casts (Auto) 1-5 /lpf (0-5) Urine Epithelial Cells (Auto) >30 /lpf (0-5) Urine Bacteria (Auto) NEG (NEG) Urine Pathogenic Casts /lpf (0) White Blood Count 7.01 K/uL (4.8-10.8) Red Blood Count 2.78 M/uL (4.2-5.4) Hemoglobin 9.2 g/dL (12.0-16.0) Hematocrit 26.4 % (37-47) Mean Corpuscular Volume 95.0 fL (80-100) Mean Corpuscular Hemoglobin 33.1 pg (25-34) Mean Corpuscular Hemoglobin Concent 34.8 g/dl (32-36) Platelet Count 125 K/uL (130-400) Mean Platelet Volume 10.9 fL (7.4-10.4) Neutrophils (%) (Auto) 67.8 % Lymphocytes (%) (Auto) 17.5 % Monocytes (%) (Auto) 10.1 % Eosinophils (%) (Auto) 3.6 % Basophils (%) (Auto) 0.7 % Neutrophils # (Auto) 4.75 K/uL (1.4-6.5) Lymphocytes # (Auto) 1.23 K/uL (1.2-3.4) Monocytes # (Auto) 0.71 K/uL (0.11-0.59) Eosinophils # (Auto) 0.25 K/uL (0-0.5) Basophils # (Auto) 0.05 K/uL (0-0.2) RDW Standard Deviation 64.0 fL (36.4-46.3) RDW Coefficient of Variation 18.3 % (11.5-14.5) Immature Granulocyte % (Auto) 0.3 % Immature Granulocyte # (Auto) 0.02 K/uL (0.00-0.02) Red Blood Cell Morphology Unremarkable Prothrombin Time 15.3 SECONDS (9.0-12.0) Prothromb Time International Ratio 1.4 (0.9-1.1) Activated Partial Thromboplast Time 37.6 SECONDS (21.0-31.0) Partial Thromboplastin Ratio 1.4 Anion Gap 9.0 mmol/L (3-11) Est Creatinine Clear Calc Drug Dose 64.4 ml/min Estimated GFR () 65.9 Estimated GFR (Non- 56.9 BUN/Creatinine Ratio 12.5 (10-20) Calcium Level 9.2 mg/dl (8.5-10.1) Total Bilirubin 4.8 mg/dl (0.2-1) Direct Bilirubin 2.7 mg/dl (0-0.2) Aspartate Amino Transf (AST/SGOT) 56 U/L (15-37) Alanine Aminotransferase (ALT/SGPT) 18 U/L (12-78) Alkaline Phosphatase 251 U/L (45-117) Ammonia 22.0 umol/L (11-32) Troponin I < 0.015 ng/ml (0-0.045) Pro-B-Type Natriuretic Peptide 265 pg/ml (0-900) Total Protein 6.4 gm/dl (6.4-8.2) Albumin 2.8 gm/dl (3.4-5.0) Lipase 266 U/L (73-393) Laboratory results reviewed by me ECG Indication: SOB/dyspnea Rate (beats per minute): 89 Rhythm: normal sinus Findings: other (QTC prolonged, normal axis, T-wave flattening in lead 3, no sts chagnes or TWI) ED Course 1654: The patient was evaluated in room A3. A complete history and physical exam was performed. 1948: I discussed the patient with Dr. Lisa March wind up worker - he will evaluate the patient for further treatment. 1954: I reevaluated the patient and she is resting comfortably. The patient verbally expressed understanding and agreement of the treatment plan. The patient will be evaluated for further treatment. Medical Decision The patient is a 52 year old white female with a past medical history of cirrhosis who presents to the ED with a cc of worsening lower extremity beginning last month. Positive abdomen, hip, ankle swelling, shortness of breath , chest pain. Negative cough. Differential diagnosis: Liver failure, hepatorenal syndrome, kidney failure, CHF, pleural effusion, atypical CP. Patient was seen and evaluated the bedside. Patient was not in any acute distress. Patient had blood work chest x-ray completed. Patient was noted to have a stable left-sided pleural effusion. Patient's BNP was within normal limits. Patient did have elevated LFTs as well as bilirubin however these are stable from prior. Patient's ammonia was within normal limits. Patient UA negative for acute infection if anything possibly skin contaminant. Patient's hemoglobin is stable. Patient also with hyponatremia which is likely secondary to her volume overload from her alcoholic cirrhosis and ascites. Patient now with an elevated or low white blood cell count. Patient's platelet count over 100,000. Patient was ambulated as a walk test. Outpatient maintain saturations greater than 90% patient was visibly tachypneic and dyspneic. Patient's heart rate was also in the low 100s. Given the patient's symptomatic issues I spoke with the hospitalist who agreed the patient would benefit from a symptomatic paracentesis. Medication Reconcilliation Current Medication List: was personally reviewed by me Blood Pressure Screening Patient's blood pressure: Normal blood pressure Consults Time Called: 1939 Consulting Physician: Dr. Lisa March wind up worker Returned Call: 1948 (in person) I discussed the patient with Dr. Lisa March wind up worker - he will evaluate the patient for further treatment. Impression Primary Impression: Alcoholic cirrhosis of liver with ascites Additional Impressions: Chronic hyponatremia Pleural effusion associated with hepatic disorder Scribe Attestation The scribe's documentation has been prepared under my direction and personally reviewed by me in its entirety. I confirm that the note above accurately reflects all work, treatment, procedures, and medical decision making performed by me. Departure Information Dispostion Being Evaluated By Hospitalist Referrals No Doctor, Assigned (PCP) Patient Instructions My [facility] Problem Qualifiers
--- NOTE | 2017-03-12 17:22 | DIAGNOSTIC IMAGING REPORT ---
CHEST ONE VIEW PORTABLE CLINICAL HISTORY: ABDOMINAL PAIN/GI pain. Nausea. COMPARISON STUDY: 02/27/2017 FINDINGS: Unchanging consolidative/effusion-type change left lung base. The right lung remains clear. Right hemidiaphragm is smooth. Moderate stable cardiomegaly. IMPRESSION: Unchanging left basilar effusion/basilar consolidation. No change from the prior study. The above report was generated using voice recognition software. It may contain grammatical, syntax or spelling errors. Electronically signed by: Mirza Spain M.D. 03/12/2017 5:21 PM Dictated Date/Time: 03/12/2017 5:18 PM
[2017-03-12 17:32] LABS: URINE APPEARANCE CLEAR (CLEAR); URINE BILIRUBIN NEG (NEG); URINE COLOR DK YELLOW; URINE EPITHELIAL CELL AUTO >30 /lpf (0-5); URINE NITRITE NEG (NEG); URINE SPECIFIC GRAVITY 1.017 (1.000-1.030); UROBILINOGEN NEG (NEG); ZZUR CULT IF INDIC CLEAN CATCH YES
[2017-03-12 17:33] LABS: MANUAL MICROSCOPIC REQUIRED? NO; REVIEW REQ? YES
[2017-03-12 18:10] LABS: HEMATOCRIT 26.4 % (37-47); MEAN CORPUSCULAR HEMOGLOBIN 33.1 pg (25-34); MEAN CORPUSCULAR HGB CONC 34.8 g/dl (32-36); MEAN PLATELET VOLUME 10.9 fL (7.4-10.4); PLATELET COUNT 125 K/uL (130-400); RED BLOOD COUNT 2.78 M/uL (4.2-5.4); WHITE BLOOD COUNT 7.01 K/uL (4.8-10.8)
[2017-03-12 18:28] LABS: INR 1.4 (0.9-1.1); PARTIAL THROMBOPLASTIN RATIO 1.4; PROTHROMBIN TIME (PATIENT) 15.3 SECONDS (9.0-12.0)
[2017-03-12 18:31] LABS: ALT/SGPT 18 U/L (12-78); BLOOD UREA NITROGEN 14 mg/dl (7-18); BUN/CREATININE RATIO 12.5 (10-20); CALCIUM 9.2 mg/dl (8.5-10.1); CARBON DIOXIDE 23 mmol/L (21-32); CHLORIDE 92 mmol/L (98-107); GLUCOSE 105 mg/dl (70-99); SODIUM 124 mmol/L (136-145)
[2017-03-12 18:36] LABS: ALKALINE PHOSPHATASE 251 U/L (45-117); AST/SGOT 56 U/L (15-37)
[2017-03-12 18:49] LABS: BASO % 0.7 %; BASO ABS # 0.05 K/uL (0-0.2); COMPLETE YES; EOS % 3.6 %; IG% 0.3 %; LYMPH % 17.5 %; LYMPH ABS # 1.23 K/uL (1.2-3.4); MONO % 10.1 %; NEUT % 67.8 %
[2017-03-12] MEDS ORDERED: LSX40 PO (20:56)
[2017-03-12] MEDS ORDERED: SPR25 PO (20:57)
[2017-03-12] MEDS ORDERED: AMMONIUM LACTATE 12% LOTION 225 GM BTL EXT PRN (21:00)
[2017-03-12] MEDS ORDERED: ONDANSETRON INJ 2 MG/ML 2 ML VIAL IV PRN (21:00)
--- NOTE | 2017-03-12 21:26 | History and Physical ---
History & Physical Date & Time of Service: Mar 12, 2017 at 21:04 Chief Complaint: Water Retention Primary Care Physician: No Doctor, Assigned History of Present Illness Source: patient, clinic records, hospital records 52 o alcoholic cirrhotic presents with a 20 lb weight gain in the past month. She was recently admitted twice in short succession with a similar presentation. She was admitted 02/02- for hyponatremia and swelling, was placed on diuretics and fluid restriction and was started on midodrine for orthostatic hypotension with improvement. At that time she also underwent a paracentesis that was not infected and 3.3L were taken off. That same admission revealed multiple nondisplaced rib fractures on both side of her sternum related to a fall thought to be related to intoxication. She reports that her last alcoholic drink was December 16. She was then readmitted 02/22-03/01 again for hyponatremia and swelling related to cirrhosis. At that time she had pleuritic chest pain and shortness of breath with some confusion. She had another paracentesis with 2L taken off and was diuresed with IV Lasix again. She reports leaving still with edema which she reports is new for her, and now has felt the edema track up to her thighs with continued weight gain. Although she states that she sticks to a fluid restriction, she can't quite remember it and emphatically expressed how thirsty she is all the time. She denies any excessive salt use and reports compliance with her medications and abstinence from alcohol. ROS reveals some substernal chest pain that stabs her and causes discomfort when her fluid-filled belly pushes up on it-whatever position that might provoke that. As I pushed on her suprapubic area on exam, for instance, she reported the substernal pain in the top of her abdomen. She reports having 2-3 BMs daily on the lactulose and denies confusion. She reports shortness of breath and defines it as not being able to take a deep breath with the large fluid filled belly pushing up on her diaphragm. She denies any fevers, chills or other abdominal pain and does not appear toxic. She denies any UTI symptoms but does report some urgency with little urine output of late. She reports some headache, denies cough, sore throat, she is tolerating PO and denies nausea. She also denies any GI bleeding or changes in stool consistency or color. She was on Lasix 40mg BID and Spironolactone 25mg PO BID and during her hospital followup with her PCP on 03/05 her Lasix was increased to 80mg qAM and 40mg qPM. Past Medical/Surgical History Medical Problems: (1) AC ALCOHOLIC HEPATITIS Status: Resolved (2) ALCOHOL CIRRHOSIS LIVER Status: Chronic (3) DEPRESSIVE DISORDER NEC Status: Chronic (4) DUODENAL ULCER NOS Status: Chronic (5) ESOPHAGEAL REFLUX Status: Chronic (6) Esophageal varices Status: Chronic (7) H/O ETOH abuse Status: Chronic Family History Stroke MOTHER Social History Smoking Status: Current Every Day Smoker Smokeless Tobacco Use: No Alcohol Use: none Drug Use: none, other Marital Status: Housing status: lives with significant other Occupational Status: disabled Immunizations History of Influenza Vaccine: Yes Influenza Vaccine Date: Mar 02, 2017 History of Tetanus Vaccine?: Yes Tetanus Immunization Date: Jun 28, 2015 History of Pneumococcal: Yes Pneumococcal Date: Nov 23, 2009 History of Hepatitis B Vaccine: Yes Hepatitis Immunization Date: Apr 11, 2012 Multi-Drug Resistant Organisms History of MDRO: No Allergies Coded Allergies: No Known Allergies (Verified , 02/22/17) Home Medications Scheduled Escitalopram (Lexapro), 10 MG PO QAM Folic Acid (Folic Acid), 1 MG PO QAM Furosemide (Furosemide), 1 TAB PO UD Lactic Acid (Ammonium Lactate) (Lac-Hydrin Twelve), 1 APPLN EXT UD Lactulose (Lactulose), 45 ML PO UD Midodrine (Midodrine HCl), 5 MG PO TID@08,12,17 Multivitamins/Minerals (Mvi With Minerals), 1 TAB PO DAILY Pantoprazole (Protonix), 40 MG PO BID Potassium Chloride (Klor-Con M20), 20 MEQ PO QAM Spironolactone (Spironolactone), 25 MG PO BID Thiamine HCl (Vitamin B-1), 100 MG PO Q24H Scheduled PRN Lorazepam (Ativan), 0.5 MG PO BID PRN for Anxiety Review of Systems Constitutional: No fever, No chills, No weight loss Eyes: No worsening of vision ENT: No sore throat, No trouble swallowing Respiratory: + shortness of breath (when abdomen pushes up into her chest), + dyspnea on exertion, No cough, No dyspnea at rest Cardiovascular: + chest pain (when abdomen pushes up into her chest ), + edema Abdomen: + pain (when abdomen hangs forward or pushes up into her chest), No nausea, No vomiting, No diarrhea, No constipation, No GI bleeding Musculoskeletal: + swelling, No joint pain, No muscle pain Genitourinary - Female: No dysuria, No hematuria Psychiatric: No substance abuse Hematologic / Lymphatic: No abnormal bleeding/bruising Integumentary: + new/changing skin lesions (chronic spider angiomata and cold sores on mouth. ), No rash Allergic / Immunologic: No food allergies Physical Exam Vital Signs Date Time Temp Pulse Resp B/P (MAP) Pulse Ox O2 Delivery O2 Flow Rate FiO2 03/12/17 19:28 87 22 120/51 95 Room Air 03/12/17 18:00 89 21 96 03/12/17 17:45 85 20 03/12/17 17:31 119/42 03/12/17 17:30 88 22 96 03/12/17 17:15 90 23 95 03/12/17 17:10 115/46 03/12/17 17:03 92 03/12/17 16:56 97 Room Air 03/12/17 16:41 36.7 98 22 112/66 97 Room Air General Appearance: WD/WN, no apparent distress Head: normocephalic, atraumatic Eyes: normal inspection, PERRL, EOMI, + abnormal sclerae exam (jaundiced) ENT: normal ENT inspection, hearing grossly normal, pharynx normal, + pertinent finding (cold sores on mouth) Neck: supple, no JVD, trachea midline Respiratory/Chest: lungs clear, normal breath sounds, no respiratory distress, no accessory muscle use Cardiovascular: regular rate, rhythm, no gallop, no murmur, + pertinent finding (edema 3+pitting, to thighs bilaterally) Abdomen/GI: normal bowel sounds, non tender, soft Back: normal inspection Extremities/Musculoskelatal: normal inspection, normal range of motion 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, no motor/sensory deficits, alert, normal mood/affect, oriented x 3 Skin: normal color, warm/dry, + pertinent finding (spider angiomata on her anterior chest and shoulders) Diagnostics Laboratory Results 03/12/17 17:45 Red Blood Count 2.78, Mean Corpuscular Volume 95.0, Mean Corpuscular Hemoglobin 33.1, Mean Corpuscular Hemoglobin Concent 34.8, Mean Platelet Volume 10.9, Neutrophils (%) (Auto) 67.8, Lymphocytes (%) (Auto) 17.5, Monocytes (%) (Auto) 10.1, Eosinophils (%) (Auto) 3.6, Basophils (%) (Auto) 0.7, Neutrophils # (Auto ) 4.75, Lymphocytes # (Auto) 1.23, Monocytes # (Auto) 0.71, Eosinophils # (Auto ) 0.25, Basophils # (Auto) 0.05 03/12/17 17:45 Test 03/12/17 17:00 03/12/17 17:45 03/12/17 21:21 Urine Color DK YELLOW Urine Appearance CLEAR (CLEAR) Urine pH 6.0 (4.5-7.5) Urine Specific Clover 1.017 (1.000-1.030) Urine Protein NEG (NEG) Urine Glucose (UA) NEG (NEG) Urine Ketones NEG (NEG) Urine Occult Blood NEG (NEG) Urine Nitrite NEG (NEG) Urine Bilirubin NEG (NEG) Urine Urobilinogen NEG (NEG) Urine Leukocyte Esterase SMALL (NEG) Urine WBC (Auto) 10-30 /hpf (0-5) Urine RBC (Auto) 0-4 /hpf (0-4) Urine Hyaline Casts (Auto) 1-5 /lpf (0-5) Urine Epithelial Cells (Auto) >30 /lpf (0-5) Urine Bacteria (Auto) NEG (NEG) Urine Pathogenic Casts /lpf (0) White Blood Count 7.01 K/uL (4.8-10.8) Red Blood Count 2.78 M/uL (4.2-5.4) Hemoglobin 9.2 g/dL (12.0-16.0) Hematocrit 26.4 % (37-47) Mean Corpuscular Volume 95.0 fL (80-100) Mean Corpuscular Hemoglobin 33.1 pg (25-34) Mean Corpuscular Hemoglobin Concent 34.8 g/dl (32-36) Platelet Count 125 K/uL (130-400) Mean Platelet Volume 10.9 fL (7.4-10.4) Neutrophils (%) (Auto) 67.8 % Lymphocytes (%) (Auto) 17.5 % Monocytes (%) (Auto) 10.1 % Eosinophils (%) (Auto) 3.6 % Basophils (%) (Auto) 0.7 % Neutrophils # (Auto) 4.75 K/uL (1.4-6.5) Lymphocytes # (Auto) 1.23 K/uL (1.2-3.4) Monocytes # (Auto) 0.71 K/uL (0.11-0.59) Eosinophils # (Auto) 0.25 K/uL (0-0.5) Basophils # (Auto) 0.05 K/uL (0-0.2) RDW Standard Deviation 64.0 fL (36.4-46.3) RDW Coefficient of Variation 18.3 % (11.5-14.5) Immature Granulocyte % (Auto) 0.3 % Immature Granulocyte # (Auto) 0.02 K/uL (0.00-0.02) Red Blood Cell Morphology Unremarkable Prothrombin Time 15.3 SECONDS (9.0-12.0) Prothromb Time International Ratio 1.4 (0.9-1.1) Activated Partial Thromboplast Time 37.6 SECONDS (21.0-31.0) Partial Thromboplastin Ratio 1.4 Anion Gap 9.0 mmol/L (3-11) Est Creatinine Clear Calc Drug Dose 64.4 ml/min Estimated GFR () 65.9 Estimated GFR (Non- 56.9 BUN/Creatinine Ratio 12.5 (10-20) Calcium Level 9.2 mg/dl (8.5-10.1) Total Bilirubin 4.8 mg/dl (0.2-1) Direct Bilirubin 2.7 mg/dl (0-0.2) Aspartate Amino Transf (AST/SGOT) 56 U/L (15-37) Alanine Aminotransferase (ALT/SGPT) 18 U/L (12-78) Alkaline Phosphatase 251 U/L (45-117) Ammonia 22.0 umol/L (11-32) Troponin I < 0.015 ng/ml (0-0.045) Pro-B-Type Natriuretic Peptide 265 pg/ml (0-900) Total Protein 6.4 gm/dl (6.4-8.2) Albumin 2.8 gm/dl (3.4-5.0) Lipase 266 U/L (73-393) Date/Time Source Procedure Growth Status 03/12/17 17:00 Urine , Clean Catch Urine Culture Pending Received Results Past 24 Hours Test 03/12/17 17:00 03/12/17 17:45 Range/Units Urine Color DK YELLOW Urine Appearance CLEAR CLEAR Urine pH 6.0 4.5-7.5 Urine Specific Clover 1.017 1.000-1.030 Urine Protein NEG NEG Urine Glucose (UA) NEG NEG Urine Ketones NEG NEG Urine Occult Blood NEG NEG Urine Nitrite NEG NEG Urine Bilirubin NEG NEG Urine Urobilinogen NEG NEG Urine Leukocyte Esterase SMALL NEG Urine WBC (Auto) 10-30 0-5 /hpf Urine RBC (Auto) 0-4 0-4 /hpf Urine Hyaline Casts (Auto) 1-5 0-5 /lpf Urine Epithelial Cells (Auto) >30 0-5 /lpf Urine Bacteria (Auto) NEG NEG Urine Pathogenic Casts 0 /lpf White Blood Count 7.01 4.8-10.8 K/uL Red Blood Count 2.78 4.2-5.4 M/uL Hemoglobin 9.2 12.0-16.0 g/dL Hematocrit 26.4 37-47 % Mean Corpuscular Volume 95.0 80-100 fL Mean Corpuscular Hemoglobin 33.1 25-34 pg Mean Corpuscular Hemoglobin Concent 34.8 32-36 g/dl Platelet Count 125 130-400 K/uL Mean Platelet Volume 10.9 7.4-10.4 fL Neutrophils (%) (Auto) 67.8 % Lymphocytes (%) (Auto) 17.5 % Monocytes (%) (Auto) 10.1 % Eosinophils (%) (Auto) 3.6 % Basophils (%) (Auto) 0.7 % Neutrophils # (Auto) 4.75 1.4-6.5 K/uL Lymphocytes # (Auto) 1.23 1.2-3.4 K/uL Monocytes # (Auto) 0.71 0.11-0.59 K/uL Eosinophils # (Auto) 0.25 0-0.5 K/uL Basophils # (Auto) 0.05 0-0.2 K/uL RDW Standard Deviation 64.0 36.4-46.3 fL RDW Coefficient of Variation 18.3 11.5-14.5 % Immature Granulocyte % (Auto) 0.3 % Immature Granulocyte # (Auto) 0.02 0.00-0.02 K/uL Red Blood Cell Morphology Unremarkable Prothrombin Time 15.3 9.0-12.0 SECONDS Prothromb Time International Ratio 1.4 0.9-1.1 Activated Partial Thromboplast Time 37.6 21.0-31.0 SECONDS Partial Thromboplastin Ratio 1.4 Sodium Level 124 136-145 mmol/L Potassium Level 4.0 3.5-5.1 mmol/L Chloride Level 92 98-107 mmol/L Carbon Dioxide Level 23 21-32 mmol/L Anion Gap 9.0 3-11 mmol/L Blood Urea Nitrogen 14 7-18 mg/dl Creatinine 1.10 0.60-1.20 mg/dl Est Creatinine Clear Calc Drug Dose 64.4 ml/min Estimated GFR () 65.9 Estimated GFR (Non- 56.9 BUN/Creatinine Ratio 12.5 10-20 Random Glucose 105 70-99 mg/dl Calcium Level 9.2 8.5-10.1 mg/dl Total Bilirubin 4.8 0.2-1 mg/dl Direct Bilirubin 2.7 0-0.2 mg/dl Aspartate Amino Transf (AST/SGOT) 56 15-37 U/L Alanine Aminotransferase (ALT/SGPT) 18 12-78 U/L Alkaline Phosphatase 251 45-117 U/L Ammonia 22.0 11-32 umol/L Troponin I < 0.015 0-0.045 ng/ml Pro-B-Type Natriuretic Peptide 265 0-900 pg/ml Total Protein 6.4 6.4-8.2 gm/dl Albumin 2.8 3.4-5.0 gm/dl Lipase 266 73-393 U/L Microbiology Results 03/12/17 Urine Culture, Received Pending Diagnostic Radiology CHEST ONE VIEW PORTABLE CLINICAL HISTORY: ABDOMINAL PAIN/GI pain. Nausea. COMPARISON STUDY: 02/27/2017 FINDINGS: Unchanging consolidative/effusion-type change left lung base. The right lung remains clear. Right hemidiaphragm is smooth. Moderate stable cardiomegaly. IMPRESSION: Unchanging left basilar effusion/basilar consolidation. No change from the prior study. EKG SR, prolonged QTc to 530 Impression Assessment and Plan 52 yo F presents with increased fluid retention 2/2 decompensated cirrhosis 1. Decompensated cirrhosis-20 lb weight gain over last month per outpatient clinic trend. 3+pitting edema and ascitic fluid in protuberant abdomen. No concerning features of SBP with no tenderness on exam except around where her prior rib fractures were located. The abdominal pain, shortness of breath and chest pain she is describing is all likely from these prior fractures and the larger strain from the increased abdominal fluid. She is not encephalopathic; she has a h/o portal HTN wtih bleeding varices s/p banding. She is notably not on a beta rhina. Diagnostic and therapeutic paracentesis was ordered for am. Diuretics will need to be adjusted. For now, will keep aldactone at 25mg BID dosing and will start Lasix IV. Fluid restriction to 1500/day and 2gm sodium restriction ordered. I am suspicious that she is drinking more water than she lets on with the way she was talking about how thirsty she gets. GI consulted. 2. Hypervolemic hypotonic hyponatremia-likely 2/2 volume overload from cirrhosis and possibly another component of polydipsia? Cont Lasix IV and fluid restriction. Repeat PRP in am. Nephrology was consulted to assist. 3. h/o ETOH abuse-reports abstinence. 4. GERD-Protonix BID 5. Prolonged QTc-530 ms. Repeat EKG in am. 6. Anemia-likely 2/2 chronic occult bleeding and ACD. She is at baseline since prior discharge. No active bleeding. No indication for acute transfusion. DVT proph-Lovenox Full Code Dispo-to med/surg Mary Kay Haley DO [facility] Hospitalist prolonged QTc to 530-repeat EKG in am VTE Prophylaxis VTE Risk Assessment Done? Y/N: Yes Risk Level: Moderate Given or contraindicated: Enoxaparin (Lovenox)SQ
[2017-03-12] MEDS: FUROSEMIDE INJ 40 MG in SYRINGE 0 ML IV SCH (22:19)
[2017-03-12] MEDS: LORAZEPAM 0.5 MG TAB PO PRN (22:20)
[2017-03-12] MEDS: PANTOprazole SOD 40 MG TAB PO SCH (22:20)
[2017-03-12] MEDS: THIAMINE HCL 100 MG TAB PO SCH (22:20)
[2017-03-12] MEDS: SPIRONOLACTONE 25 MG TAB PO SCH (22:21)
[2017-03-12 23:38] VITALS: BP 104/57; PULSE 88; TEMP 36.6; O2SAT 96
[2017-03-12] MEDS ORDERED: IV FLUIDS COMPLETED PRN (23:45)
[2017-03-13] VITALS (13 sets, daily range): BP systolic 92–108; BP diastolic 51–65; PULSE 80–93; TEMP 36.5–36.9; O2SAT 92–98; Ht 165.1 cm; Wt 82.1 kg
[2017-03-13] MEDS: TRAMADOL HCL 50 MG TAB PO PRN ×3 (00:14→18:36)
[2017-03-13 06:50] LABS: BUN/CREATININE RATIO 15.9 (10-20); CALCIUM 8.4 mg/dl (8.5-10.1); POTASSIUM 4.2 mmol/L (3.5-5.1)
[2017-03-13 07:03] LABS: HEMATOCRIT 25.2 % (37-47); MEAN CELL VOLUME 95.8 fL (80-100); MEAN CORPUSCULAR HEMOGLOBIN 33.8 pg (25-34); MEAN CORPUSCULAR HGB CONC 35.3 g/dl (32-36); MEAN PLATELET VOLUME 11.4 fL (7.4-10.4); PLATELET COUNT 118 K/uL (130-400); RED BLOOD COUNT 2.63 M/uL (4.2-5.4); WHITE BLOOD COUNT 5.75 K/uL (4.8-10.8)
[2017-03-13] MEDS: LACTULOSE SYRUP 10 GM/15 ML BTL 473 ML PO SCH ×3 (08:00→20:08)
[2017-03-13] MEDS ORDERED: ESCITALOPRAM OXALATE 10 MG TAB PO SCH (08:00)
[2017-03-13] MEDS: SPIRONOLACTONE 25 MG TAB PO SCH ×2 (08:51→17:07)
[2017-03-13] MEDS: POTASSIUM CHLORIDE 20 MEQ TABCR PO SCH (08:53)
[2017-03-13] MEDS: CEROVITE ADV FORMULA TAB PO SCH (08:54)
[2017-03-13] MEDS: PANTOprazole SOD 40 MG TAB PO SCH ×2 (08:55→20:08)
[2017-03-13] MEDS: MIDODRINE 2.5 MG TAB PO SCH ×3 (08:55→17:06)
[2017-03-13] MEDS: FUROSEMIDE INJ 40 MG in SYRINGE 0 ML IV SCH ×2 (08:56→17:07)
[2017-03-13] MEDS ORDERED: LACTULOSE SYRUP 10 GM/15 ML BTL 473 ML PO SCH (09:00)
--- NOTE | 2017-03-13 09:29 | NEPHROLOGY CONSULTATION ---
DATE OF CONSULTATION: 03/13/2017 ATTENDING OF RECORD: Dr. Barton. REASON FOR CONSULTATION: Hyponatremia. HISTORY OF PRESENT ILLNESS: This is a 52-year-old cirrhotic secondary to alcoholism, last drink was December 16. The patient has had several hospitalizations in January and February for low sodium and volume overload and responded favorably to paracenteses as well as diuresis with fluid restriction. The patient though presents during this admission with a low sodium level of 124, significant abdominal distention and edema in her legs up to her thighs. The patient states that she has never been this fluid overloaded before. She has difficult time eating, since she feels bloated and is having a difficult time moving as well since her legs are heavy and her abdomen is so big. The patient was placed on Lasix 40 mg IV b.i.d. as well as spironolactone 25 mg p.o. b.i.d. and is currently on a midodrine 5 mg p.o. t.i.d. as well. The patient is alert with normal ammonia levels. The patient denies extra salt intake and states that she tried to continue on her fluid restriction at home and was taking her medications appropriately, but continued to retain fluid. REVIEW OF SYSTEMS: +swelling, +fatigue, +early satiety, no fevers or chills, no chest pain, no nausea, no vomiting, no dysuria, no rash, no itching, no headaches, no blurry vision, no dysphagia all other review of systems otherwise negative. PAST MEDICAL HISTORY: Cirrhosis secondary to alcohol, recurrent admissions for hyponatremia, GERD, esophageal varices, and depression. PAST SURGICAL HISTORY: The patient denies. FAMILY HISTORY: Mother is with stroke. SOCIAL HISTORY: Active smoker. No alcohol. Last drink in December 16. No drugs. Lives at home. HOME MEDICATIONS: Significant for spironolactone 25 mg p.o. b.i.d. and Lasix 80 mg in the morning and 40 mg at night. CURRENT MEDICATIONS: Lexapro 10 mg daily, folic acid 1 mg daily, midodrine 5 mg p.o. t.i.d., multivitamin daily, potassium 20 mEq daily, lactulose 15 grams t.i.d., spironolactone 25 mg p.o. twice a day, Lasix 40 mg IV b.i.d., Protonix 40 mg p.o. b.i.d., and thiamine 100 mg p.o. daily. PHYSICAL EXAMINATION: VITAL SIGNS: Temperature 36.5, pulse 93, respiratory rate 16, blood pressure is 108/64, and satting 92% on room air. GENERAL: Awake, alert, and oriented x3. Positive jaundice. Positive scleral icterus. ENT: Moist mucous membranes. NECK: Supple. PULMONARY: Clear to auscultation. CARDIAC: Regular rate and rhythm. ABDOMEN: Bowel sounds positive, significantly distended, and nontender. EXTREMITIES: +2 edema up to her thighs. NEUROLOGICALLY: Nonfocal. DERMATOLOGIC: No rash or ulcers noted. LABORATORIES: Pending for this morning. Sodium level is 124 last night, potassium 4, chloride is 92, bicarbonate is 23, BUN is 14, and creatinine is 1.1. Serum osmolality is 258. Glucose 105. T-bili is elevated at 4.8. Ammonia level is 22. Albumin is 2.8. INR is 1.4. White count 7, H&H 9 and 26, and platelet count 125. Urine cultures pending. Chest x-ray shows left basilar effusion and consolidation. IMPRESSION AND PLAN: Hyponatremia. The patient with hyponatremia from volume overload in the setting of cirrhosis and placed on 1500 mL fluid restriction and switched oral Lasix to IV Lasix on admission. Repeat sodium levels are pending for this morning. Continue to diurese and likely will go for paracentesis well today. All of which should help with her sodium levels. Once volume status has improved and sodium levels have improved above 130, we will need to adjust her outpatient diuretic regimen to try to help control her volume status and sodium levels as an outpatient. The patient was on Lasix 80 mg in the morning and 40 mg at night, but only for about a week prior to coming in and on spironolactone 25 mg. Likely, we will need both outpatient diuretic regimens aggressively increased to try to help control the third spacing of fluid and the need for subsequent paracenteses. I appreciate the consultation. CAROL
--- NOTE | 2017-03-13 09:33 | Gastrointestinal Consultation ---
Gastrointestinal Consultation Date of Consultation: Mar 13, 2017 Attending Physician: Mick Consulting Physician: Ana Reason for Consultation: cirrhosis, weight gain History of Present Illness Patient is a 52 year old female w/ past medical history that includes alcohol- induced cirrhosis, hepatic encephalopathy, history of esophageal varices, status post banding and chronic hyponatremia, who presented through the ED for evaluation of weight gain - GI was consulted for abdominal distention and ascites. Pt tells me she has had about a 30-40 lb wt gain since her last discharge. She tells me she was taking her medication but notes that about one week ago she began developing worsening lower extremity edema abdominal distention. Reports constant abdominal pain explained as a fullness and discomfort. No black or bloody stools, no nausea or vomiting. No fever, chills, CP, SOB. Decompensations: Varices: yes Ascites: yes Hepatic encephalopathy: yes Screenings: EGD:will nee to review records, appears to be last EGD 2015 HCC: will get RUQ US Immunization: will need to review outpatient records Chest XR: Unchanging consolidative/effusion-type change left lung base. The right lung remains clear. Right hemidiaphragm is smooth. Moderate stable cardiomegaly. Past Medical/Surgical History Medical Problems: (1) Abdominal pain Status: Acute (2) Abdominal pain, left upper quadrant Status: Acute (3) Ascites Status: Acute (4) Cirrhosis Status: Acute (5) Diarrhea Status: Acute (6) GI bleed Status: Acute (7) Hypokalemia Status: Acute (8) Hyponatremia Status: Acute (9) Hyponatremia Status: Acute (10) Hyponatremia Status: Acute (11) Liver failure Status: Acute (12) Syncope Status: Acute Past Medical History: ETOH cirrhosis, hepatic encephalopathy, esophageal varices, status post banding , depression, hypotension, hyponatremia, iron deficiency anemia. Past Surgical History: Family History Stroke MOTHER Social History Smoking Status: Unknown if Ever Smoked Alcohol Use: heavy Drug Use: none, other Marital Status: Housing Status: lives with family Occupation Status: disabled Allergies Coded Allergies: No Known Allergies (Verified , 02/22/17) Current Medications Home Meds and Scripts Medications Dose Route/Sig Max Daily Dose Days Date Category Dose Instructions Spironolactone 25 Mg Tab 25 Mg PO BID 03/12/17 Rx Furosemide 40 Mg Tab 1 Tab PO UD 03/12/17 Reported take 80mg po every AM, and 40mg PO every PM. Klor-Con M20 (Potassium Chloride) 20 Meq Tabcr 20 Meq PO QAM 30 03/01/17 Rx Folic Acid 1 Mg Tab 1 Mg PO QAM 30 03/01/17 Rx Lac-Hydrin Twelve (Lactic Acid (Ammonium Lactate)) 12 % Lot 1 Appln EXT UD 03/01/17 Rx Midodrine HCl (Midodrine) 2.5 Mg Tab 5 Mg PO TID@,, 30 03/01/17 Rx Mvi With Minerals (Multivitamins/Minerals) Tab 1 Tab PO DAILY 30 02/11/17 Rx Vitamin B-1 (Thiamine HCl) 100 Mg Tab 100 Mg PO Q24H 02/11/17 Rx Lactulose 30 Gm/45 Ml Syrp 45 Ml PO UD 30 02/11/17 Rx LACTULOSE 15-45ML PO 1-3 TIMES A DAY FOR 3-4 BOWEL MOVEMENTS A DAY Lexapro (Escitalopram Oxalate) 10 Mg Tab 10 Mg PO QAM 11/19/12 Reported Protonix (Pantoprazole Sodium) 40 Mg Tab 40 Mg PO BID 11/19/12 Reported Ativan (Lorazepam) 0.5 Mg Tab 0.5 Mg PO BID PRN 02/16/12 Reported Review of Systems Constitutional: No fever, No chills Cardiac: No chest pain Abdomen: + pain, No nausea, No vomiting, No diarrhea, No constipation, No GI bleeding Physical Exam Date Time Temp Pulse Resp B/P (MAP) Pulse Ox O2 Delivery O2 Flow Rate FiO2 03/13/17 07:42 98 Room Air 03/13/17 07:24 36.6 86 18 95/54 (68) 98 Room Air 03/13/17 04:09 36.5 93 16 108/64 (79) 92 Room Air 03/13/17 03:05 36.6 88 20 104/57 Room Air 03/12/17 23:38 36.6 88 20 104/57 (73) 96 Room Air 03/12/17 21:05 85 15 03/12/17 21:03 84 03/12/17 20:35 88 18 96 Room Air 03/12/17 20:31 99/59 03/12/17 20:05 87 23 95 Room Air 03/12/17 20:01 100/59 03/12/17 19:35 87 22 94 03/12/17 19:31 108/59 03/12/17 19:28 87 22 120/51 95 Room Air 03/12/17 19:25 120/51 03/12/17 19:05 85 20 94 03/12/17 18:35 85 18 03/12/17 18:05 86 21 95 03/12/17 18:00 89 21 96 03/12/17 17:45 85 20 03/12/17 17:31 119/42 03/12/17 17:30 88 22 96 03/12/17 17:15 90 23 95 03/12/17 17:10 115/46 03/12/17 17:03 92 03/12/17 16:56 97 Room Air 03/12/17 16:41 36.7 98 22 112/66 97 Room Air General Appearance: + mild distress (pt appears uncomofrtable in bed) Eyes: PERRL ENT: hearing grossly normal Neck: supple Respiratory/Chest: lungs clear, normal breath sounds Cardiovascular: regular rate, rhythm, + pertinent finding (2+ edema bilaterally up to mid thigh) Abdomen: normal bowel sounds, no organomegaly, no pulsatile mass, + distended ( tense ascites, no fluid wave), + tenderness (generalized discomfort) Neurologic/Psych: alert, normal mood/affect, oriented x 3 Skin: warm/dry, + jaundice, + pertinent finding (two scabs on right side of face) Laboratory Results Last 24 Hours Test 03/12/17 17:00 03/12/17 17:45 03/12/17 21:21 03/13/17 05:58 Urine Color DK YELLOW Urine Appearance CLEAR Urine pH 6.0 Urine Specific [place] 1.017 Urine Protein NEG Urine Glucose (UA) NEG Urine Ketones NEG Urine Occult Blood NEG Urine Nitrite NEG Urine Bilirubin NEG Urine Urobilinogen NEG Urine Leukocyte Esterase SMALL Urine WBC (Auto) 10-30 /hpf Urine RBC (Auto) 0-4 /hpf Urine Hyaline Casts (Auto) 1-5 /lpf Urine Epithelial Cells (Auto) >30 /lpf Urine Bacteria (Auto) NEG Urine Pathogenic Casts /lpf White Blood Count 7.01 K/uL Red Blood Count 2.78 M/uL Hemoglobin 9.2 g/dL Hematocrit 26.4 % Mean Corpuscular Volume 95.0 fL Mean Corpuscular Hemoglobin 33.1 pg Mean Corpuscular Hemoglobin Concent 34.8 g/dl Platelet Count 125 K/uL Mean Platelet Volume 10.9 fL Neutrophils (%) (Auto) 67.8 % Lymphocytes (%) (Auto) 17.5 % Monocytes (%) (Auto) 10.1 % Eosinophils (%) (Auto) 3.6 % Basophils (%) (Auto) 0.7 % Neutrophils # (Auto) 4.75 K/uL Lymphocytes # (Auto) 1.23 K/uL Monocytes # (Auto) 0.71 K/uL Eosinophils # (Auto) 0.25 K/uL Basophils # (Auto) 0.05 K/uL RDW Standard Deviation 64.0 fL RDW Coefficient of Variation 18.3 % Immature Granulocyte % (Auto) 0.3 % Immature Granulocyte # (Auto) 0.02 K/uL Red Blood Cell Morphology Unremarkable Prothrombin Time 15.3 SECONDS Prothromb Time International Ratio 1.4 Activated Partial Thromboplast Time 37.6 SECONDS Partial Thromboplastin Ratio 1.4 Sodium Level 124 mmol/L 125 mmol/L Potassium Level 4.0 mmol/L 4.2 mmol/L Chloride Level 92 mmol/L 95 mmol/L Carbon Dioxide Level 23 mmol/L 21 mmol/L Anion Gap 9.0 mmol/L 9.0 mmol/L Blood Urea Nitrogen 14 mg/dl 16 mg/dl Creatinine 1.10 mg/dl 1.00 mg/dl Est Creatinine Clear Calc Drug Dose 64.4 ml/min 70.9 ml/min Estimated GFR () 65.9 74.0 Estimated GFR (Non- 56.9 63.8 BUN/Creatinine Ratio 12.5 15.9 Random Glucose 105 mg/dl 82 mg/dl Calcium Level 9.2 mg/dl 8.4 mg/dl Total Bilirubin 4.8 mg/dl Direct Bilirubin 2.7 mg/dl Aspartate Amino Transf (AST/SGOT) 56 U/L Alanine Aminotransferase (ALT/SGPT) 18 U/L Alkaline Phosphatase 251 U/L Ammonia 22.0 umol/L Troponin I < 0.015 ng/ml Pro-B-Type Natriuretic Peptide 265 pg/ml Total Protein 6.4 gm/dl Albumin 2.8 gm/dl Lipase 266 U/L Osmolality 258 mOsm/kg Magnesium Level 2.0 mg/dl Test 03/13/17 06:37 White Blood Count 5.75 K/uL Red Blood Count 2.63 M/uL Hemoglobin 8.9 g/dL Hematocrit 25.2 % Mean Corpuscular Volume 95.8 fL Mean Corpuscular Hemoglobin 33.8 pg Mean Corpuscular Hemoglobin Concent 35.3 g/dl RDW Standard Deviation 64.5 fL RDW Coefficient of Variation 18.4 % Platelet Count 118 K/uL Mean Platelet Volume 11.4 fL Impression Patient is a 52 year old female w/ decompensated alcohol-induced cirrhosis, she has been sober from ETOH since December 16 2016, she has never been evaluated by transplant team in [place]. She was admitted to [facility] due to hyponatremia and fluid overload, nephrology following w/ lasix/spironolactone and midodrine. GI consulted for additional management. Will arrange paracentesis, diagnostic and therapeutic w/ albumin before and after. Plan - Low NA diet - 1500 mL fluid restriction - Diuretics per nephrology: Lasix, spironolactone, midodrine - Continue strict ETOH abstinence - Paracentesis w/ 25G 25% albumin to be given before and after paracentesis - rule out SBP - RUQ US for HCC screen - Outpatient EGD - will need close outpatient follow up with GI - will need to be evaluated by transplant clinic - MELD 26 (driven by hyponatremia) - Maddrey Function 20 GI will follow, please call with questions. ATTESTATION: I have performed a history and physical examination of this patient and reviewed the electronic record. Specifically, on physical examination there is no confusion, paracentesis in progress, significant ankle and leg pitting edema. I have discussed the case with WILBERT Blackwell. The above note reflects my findings, conclusions, and recommendations. Raad Perez MD
[2017-03-13] MEDS: ALBUMIN HUMAN 25% 12.5 GM/50 ML VIAL IV SCH ×4 (13:24→19:07)
--- NOTE | 2017-03-13 16:21 | DIAGNOSTIC IMAGING REPORT ---
ULTRASOUND GUIDED DIAGNOSTIC AND THERAPEUTIC PARACENTESIS CLINICAL HISTORY: Ascites. PROCEDURE: The risks, benefits, and alternatives to the procedure were discussed with the patient including the risk of bleeding, infection and injury to adjacent structures. The patient agreed to the procedure and informed written consent was obtained. Following real-time ultrasound localization, the skin of the left lower quadrant was prepped and draped. Following local anesthesia with Xylocaine, the sheath paracentesis needle was inserted and approximately 5.8 liters of straw-colored fluid was removed by vacuum suction. 1 L of ascites was sent to the laboratory for analysis as ordered. The patient tolerated the procedure well and no immediate complications were evident. IMPRESSION: Ultrasound-guided diagnostic and therapeutic paracentesis with removal of 5.8 liters of ascites. Electronically signed by: Ruben Matos M.D. 03/13/2017 4:19 PM Dictated Date/Time: 03/13/2017 4:18 PM
--- NOTE | 2017-03-13 16:25 | DIAGNOSTIC IMAGING REPORT ---
HEPATIC ULTRASONOGRAPHY CLINICAL HISTORY: HCC screening, cirrhosis COMPARISON STUDY: CT scan dated 02/02/2017 FINDINGS: The liver has a cirrhotic appearance. No focal hepatic masses are visualized. The liver demonstrates areas of capsular retraction similar to the prior CT study. The portal vein is patent with normal directional flow. There is ascites. There are tiny gallstones present. There is no ductal dilatation. The common bile measures 5 mm. No focal pancreatic masses are visualized. IMPRESSION: 1. Cirrhotic appearing liver. Persistent areas of capsular retraction, but no focal masses identified ultrasonographically. 2. Cholelithiasis 3. Ascites 4. No ductal dilatation Electronically signed by: Manuel Lou M.D. 03/13/2017 4:23 PM Dictated Date/Time: 03/13/2017 4:21 PM
[2017-03-13 17:33] LABS: PERIT FL WBC 91 /uL (0-300); PERITONEAL FLUID RBC < 3000 /uL
--- NOTE | 2017-03-13 19:15 | Progress Note ---
Internal Med Progress Note Date of Service: Mar 13, 2017. Provider Documentation: SUBJECTIVE: offers no complain breathing much better after paracentesis has mild pain in abdomen at the site of paracentesis no nausea no fever or chills OBJECTIVE: Vital Signs-as noted below Exam: General-chronically ill appearing Eyes-sclera icteric ENT-NAD Neck-no JVD Lungs-CTA Heart-regular S1/S2 Abdomen-distended Extremities-+ 3 edema Neuro-no focal deficit Lab data as noted below. ASSESSMENT & PLAN: 52 yo F presents with increased fluid retention 2/2 decompensated cirrhosis HEPATIC CIRRHOSIS/ALCOHOLIC LIVER DISEASE : h/o portal HTN with bleeding varices s/p banding. presented with -20 lb weight gain over last month per outpatient clinic trend. 3+pitting edema and ascitic fluid in protuberant abdomen. no evidence of hepatin encephalopathy ; pt is continued with home dose of lactulose s/p paracentesis with removal of 5.8 L of ascitic fluid albumin ordered by GI post paracentesis cont diuretics Aldactone at 25mg BID dosing and Lasix IV BID /midodrine Fluid restriction to 1500/day and 2gm sodium restriction GI eval appreciated HYPONATREMIA ; possible due to vol overload for decompensated cirrhosis Cont Lasix IV and fluid restriction. follow PRP . Nephrology consulted, appreciate input HX OF ETOH ABUSE -reports abstinence since November pt is counselled to Continue strict ETOH abstinence GERD -Protonix BID PROLONG QTc -530 ms. Repeat EKG in am shows improvement Qtc 481 avoid medication may cause Qtc prolongation D/c Zofran /SSRI -Lexapro ANEMIA OF CHRONIC DISEASE : Hb at baseline since prior discharge. No active bleeding. No indication for acute transfusion. DVT PROPHYLAXIS scd and teds avoid antiplatelet for thrombocytopenia due to chronic liver disease DISPOSITION expected to be discharged home when medically stable Vital Signs: Date Time Temp Pulse Resp B/P (MAP) Pulse Ox O2 Delivery O2 Flow Rate FiO2 03/14/17 07:30 36.8 83 18 87/44 (58) 94 Room Air 03/14/17 05:21 36.8 82 20 107/57 (74) 92 Room Air 03/14/17 01:23 36.8 92 20 95/52 (66) 94 Room Air 03/14/17 00:45 Room Air 03/13/17 19:51 36.8 83 20 95/52 (66) 95 Room Air 03/13/17 19:08 80 18 95/53 (67) 97 Room Air 03/13/17 17:57 89 18 104/57 (73) 96 Room Air 03/13/17 16:21 36.7 82 18 94/56 (69) 97 Room Air 03/13/17 16:00 Room Air 03/13/17 14:54 36.7 82 20 97/57 (70) 96 Room Air 03/13/17 14:15 36.6 85 20 92/51 (65) 96 Room Air 03/13/17 13:37 36.7 86 86 106/65 (79) 97 Room Air 03/13/17 11:35 36.9 88 22 102/54 (70) 96 Room Air Lab Results: Results Past 24 Hours Test 03/13/17 16:00 03/14/17 06:50 Range/Units Peritoneal Fluid Color YELLOW Peritoneal Fluid Appearance CLEAR Peritoneal Fluid WBC 91 0-300 /uL Peritoneal Fluid RBC < 3000 /uL Peritoneal Fld Mononuclear WBCs (%) 85.3 % Peritoneal Fld Polynuclear WBCs (%) 14.7 % Peritoneal Fluid Total Protein 0.5 g/dl Peritoneal Fluid Albumin < 0.6 g/dl Peritoneal Fluid LDH 20 IU Peritoneal Fluid Glucose 99 mg/dl White Blood Count 3.26 4.8-10.8 K/uL Red Blood Count 2.48 4.2-5.4 M/uL Hemoglobin 7.7 12.0-16.0 g/dL Hematocrit 23.7 37-47 % Mean Corpuscular Volume 95.6 80-100 fL Mean Corpuscular Hemoglobin 31.0 25-34 pg Mean Corpuscular Hemoglobin Concent 32.5 32-36 g/dl RDW Standard Deviation 63.4 36.4-46.3 fL RDW Coefficient of Variation 17.8 11.5-14.5 % Platelet Count 98 130-400 K/uL Mean Platelet Volume 11.2 7.4-10.4 fL Platelet Estimate DECREASED Sodium Level 127 136-145 mmol/L Potassium Level 4.1 3.5-5.1 mmol/L Chloride Level 97 98-107 mmol/L Carbon Dioxide Level 25 21-32 mmol/L Anion Gap 5.0 3-11 mmol/L Blood Urea Nitrogen 15 7-18 mg/dl Creatinine 0.95 0.60-1.20 mg/dl Est Creatinine Clear Calc Drug Dose 74.6 ml/min Estimated GFR () 78.7 Estimated GFR (Non- 67.9 BUN/Creatinine Ratio 15.6 -20 Random Glucose 66 70-99 mg/dl Calcium Level 8.3 8.5-10.1 mg/dl Microbiology Results 03/13/17 Acid Fast Stain, Received Pending 03/13/17 Mycobacterial Culture, Received Pending 03/13/17 Gram Stain - Final, Resulted 03/13/17 Bacterial Culture, Resulted Pending
[2017-03-13] MEDS: THIAMINE HCL 100 MG TAB PO SCH (20:08)
[2017-03-13] MEDS: LORAZEPAM 0.5 MG TAB PO PRN (23:22)
[2017-03-14] VITALS (8 sets, daily range): BP systolic 87–115; BP diastolic 44–66; PULSE 81–92; TEMP 36.7–36.9; O2SAT 92–95
[2017-03-14] MEDS: TRAMADOL HCL 50 MG TAB PO PRN ×3 (00:32→23:38)
[2017-03-14 07:21] LABS: HEMATOCRIT 23.7 % (37-47); MEAN CELL VOLUME 95.6 fL (80-100); MEAN CORPUSCULAR HGB CONC 32.5 g/dl (32-36); RED BLOOD COUNT 2.48 M/uL (4.2-5.4); WHITE BLOOD COUNT 3.26 K/uL (4.8-10.8)
[2017-03-14 07:36] LABS: BUN/CREATININE RATIO 15.6 (10-20); CALCIUM 8.3 mg/dl (8.5-10.1); CREATININE 0.95 mg/dl (0.60-1.20); POTASSIUM 4.1 mmol/L (3.5-5.1)
[2017-03-14 07:55] LABS: MEAN PLATELET VOLUME 11.2 fL (7.4-10.4); PLATELET COUNT 98 K/uL (130-400); PLT ESTIMATE DECREASED
[2017-03-14] MEDS: SPIRONOLACTONE 25 MG TAB PO SCH ×2 (08:04→16:56)
[2017-03-14] MEDS: CEROVITE ADV FORMULA TAB PO SCH (08:04)
[2017-03-14] MEDS: PANTOprazole SOD 40 MG TAB PO SCH ×2 (08:04→20:26)
[2017-03-14] MEDS: MIDODRINE 2.5 MG TAB PO SCH ×3 (08:04→16:57)
[2017-03-14] MEDS: FUROSEMIDE INJ 40 MG in SYRINGE 0 ML IV SCH ×2 (08:04→16:55)
[2017-03-14] MEDS: LACTULOSE SYRUP 10 GM/15 ML BTL 473 ML PO SCH (08:05)
[2017-03-14] MEDS: POTASSIUM CHLORIDE 20 MEQ TABCR PO SCH (08:05)
--- NOTE | 2017-03-14 10:38 | Gastroenterology Progress Note ---
Progress Note Date of Service: Mar 14, 2017 Subjective Pt evaluation today including: conversation w/ patient, physical exam, chart review, lab review Pt was seen and evaluated, chart reviewed. No acute events overnight. Pt tells me her abdominal pressure is greatly relieved with paracentesis. She is tired this morning and denying any concerns - specifically denies abdominal pain, nausea, vomiting, black or bloody stools. Paracentesis 03/14/17: 6L Peritoneal Fluid 03/14/17: Peritoneal WBC 91, Polynuclear 14%,culture pending. SAAG 2.2 likely related to portal HTN RUQ US 03/14/17: Cirrhotic appearing liver. Persistent areas of capsular retraction, but no focal masses identified ultrasonographically. Cholelithiasis Ascites No ductal dilatation Review of Systems Constitutional: No fever, No chills Respiratory: No cough, No shortness of breath Cardiac: No chest pain, No edema Abdomen: No pain, No nausea, No vomiting, No diarrhea, No constipation, No GI bleeding Medications Current Inpatient Medications Medications (Trade) Dose Ordered Sig/Betty Route Start Time Stop Time Status Last Admin Dose Admin Folic Acid (Folvite Tab) 1 mg QAM PO 03/13/17 08:00 04/12/17 08:59 03/14/17 08:04 1 MG Ammonium Lactate (Lac-Hydrin) 1 appl BID PRN EXT 03/12/17 21:00 04/11/17 20:59 Lorazepam (Ativan Tab) 0.5 mg BID PRN PO 03/12/17 21:00 04/11/17 20:59 03/13/17 23:22 0.5 MG Midodrine (Proamatine Tab) 5 mg TID@, PO 03/13/17 08:00 04/12/17 07:59 03/14/17 08:04 5 MG Multivitamins/ Minerals (Multivitamin W/ Minerals Tab) 1 tab DAILY PO 03/13/17 08:00 04/12/17 08:59 03/14/17 08:04 1 TAB Pantoprazole Sodium (Protonix Tab) 40 mg BID PO 03/12/17 21:00 04/11/17 20:59 03/14/17 08:04 40 MG Potassium Chloride (Klor-Con Tab) 20 meq QAM PO 03/13/17 08:00 04/12/17 08:59 03/14/17 08:05 20 MEQ Thiamine HCl (Vitamin B-1 Tab) 100 mg Q24H PO 03/12/17 21:00 04/11/17 20:59 03/13/17 20:08 100 MG Lactulose (Chronulac Syrup) 15 gm TID PO 03/13/17 08:00 04/12/17 08:59 03/14/17 08:05 15 GM Furosemide 40 mg/ Syringe 4 ml @ 4 mls/min BID17 IV 03/12/17 21:15 04/11/17 21:14 03/14/17 08:04 4 MLS/MIN Spironolactone (Aldactone Tab) 25 mg BID@0800,1700 PO 03/12/17 21:15 04/11/17 21:14 03/14/17 08:04 25 MG Miscellaneous (Iv Fluids Completed) 1 ea PRN PRN N/A 03/12/17 23:45 03/12/18 23:44 Tramadol HCl (Ultram Tab) 25 mg Q6H PRN PO 03/13/17 00:00 04/12/17 00:00 03/14/17 08:08 25 MG Objective Vital Signs Date Time Temp Pulse Resp B/P (MAP) Pulse Ox O2 Delivery O2 Flow Rate FiO2 03/14/17 08:34 Room Air 03/14/17 07:30 36.8 83 18 87/44 (58) 94 Room Air 03/14/17 05:21 36.8 82 20 107/57 (74) 92 Room Air 03/14/17 01:23 36.8 92 20 95/52 (66) 94 Room Air 03/14/17 00:45 Room Air 03/13/17 19:51 36.8 83 20 95/52 (66) 95 Room Air 03/13/17 19:08 80 18 95/53 (67) 97 Room Air 03/13/17 17:57 89 18 104/57 (73) 96 Room Air 03/13/17 16:21 36.7 82 18 94/56 (69) 97 Room Air 03/13/17 16:00 Room Air 03/13/17 14:54 36.7 82 20 97/57 (70) 96 Room Air 03/13/17 14:15 36.6 85 20 92/51 (65) 96 Room Air 03/13/17 13:37 36.7 86 86 106/65 (79) 97 Room Air 03/13/17 11:35 36.9 88 22 102/54 (70) 96 Room Air Physical Exam General Appearance: no apparent distress Eyes: PERRL ENT: hearing grossly normal Neck: supple Respiratory/Chest: lungs clear Cardiovascular: regular rate, rhythm Abdomen: normal bowel sounds, soft, no organomegaly, no pulsatile mass Extremities: + pertinent finding (bilateral lower extremity edema, mildly improved since exam yesterday) Neurologic/Psych: alert, normal mood/affect, + pertinent finding (oriented to person, place not oriented to time this AM) Skin: + jaundice Laboratory Results Last 24 Hours Test 03/13/17 16:00 03/14/17 06:50 Peritoneal Fluid Color YELLOW Peritoneal Fluid Appearance CLEAR Peritoneal Fluid WBC 91 /uL Peritoneal Fluid RBC < 3000 /uL Peritoneal Fld Mononuclear WBCs (%) 85.3 % Peritoneal Fld Polynuclear WBCs (%) 14.7 % Peritoneal Fluid Total Protein 0.5 g/dl Peritoneal Fluid Albumin < 0.6 g/dl Peritoneal Fluid LDH 20 IU Peritoneal Fluid Glucose 99 mg/dl White Blood Count 3.26 K/uL Red Blood Count 2.48 M/uL Hemoglobin 7.7 g/dL Hematocrit 23.7 % Mean Corpuscular Volume 95.6 fL Mean Corpuscular Hemoglobin 31.0 pg Mean Corpuscular Hemoglobin Concent 32.5 g/dl RDW Standard Deviation 63.4 fL RDW Coefficient of Variation 17.8 % Platelet Count 98 K/uL Mean Platelet Volume 11.2 fL Platelet Estimate DECREASED Sodium Level 127 mmol/L Potassium Level 4.1 mmol/L Chloride Level 97 mmol/L Carbon Dioxide Level 25 mmol/L Anion Gap 5.0 mmol/L Blood Urea Nitrogen 15 mg/dl Creatinine 0.95 mg/dl Est Creatinine Clear Calc Drug Dose 74.6 ml/min Estimated GFR () 78.7 Estimated GFR (Non- 67.9 BUN/Creatinine Ratio 15.6 Random Glucose 66 mg/dl Calcium Level 8.3 mg/dl Assessment and Plan Patient is a 52 year old female w/ decompensated alcohol-induced cirrhosis, she has been sober from ETOH since December 16 2016, she has never been evaluated by transplant team in [place]. She was admitted to [facility] due to hyponatremia and fluid overload, nephrology following w/ lasix/spironolactone and midodrine. GI consulted for additional management. Will arrange paracentesis, diagnostic and therapeutic w/ albumin before and after. 6L fluid off yesterday, no evidence of SBP, sodium this AM 127. Plan - Low NA diet - 1500 mL fluid restriction - Diuretics per nephrology: IV Lasix 40 BID, spironolactone 25 BID, midodrine 5 TID - Continue strict ETOH abstinence - Outpatient EGD - will need close outpatient follow up with GI - Will increase lactulose to 30 gm TID, cruise staff member can titrate this to 2-3 BMs daily - if insufficient BMs with this dose, or pt does not tolerate, can add Xifaxan 550 BID - MELD 26 (driven by hyponatremia) - Maddrey Function 20 Attg addendum: I interviewed and examined pt, reviewed chart and labs. Pt is improved, with weight loss and improved NA. Would increase midodrine, given hypotension; also, check urine prot/creat and echo to r/o other causes of vol overload. Will cont to follow.
[2017-03-14] MEDS ORDERED: INFLUENZA ADMINISTRATION CHARGE ONE (10:45)
[2017-03-14] MEDS ORDERED: INFLUENZA VIRUS QUAD VACCINE 0.5 ML SYR IM. ONE (10:45)
[2017-03-14] MEDS: LACTULOSE SYRUP 30 GM/45 ML UDP PO SCH ×2 (12:28→20:26)
[2017-03-14] MEDS: LORAZEPAM 0.5 MG TAB PO PRN ×2 (12:28→23:38)
--- NOTE | 2017-03-14 16:20 | Nephrology Progress Note ---
Nephrology Progress Note Date of Service: Mar 14, 2017. Subjective 52 yo female with hyponatremia in the setting of cirrhosis and volume overload. s/p paracentesis and on iv diuretics and a fluid restriction. sodium levels are slowly improving and pt feels much more comfortable and leg swelling also improving. Objective Date Time Temp Pulse Resp B/P (MAP) Pulse Ox O2 Delivery O2 Flow Rate FiO2 03/14/17 15:07 36.7 83 18 104/62 (76) 95 Room Air 03/14/17 11:09 36.7 82 18 113/62 (79) 95 Room Air 03/14/17 08:34 Room Air 03/14/17 07:30 36.8 83 18 87/44 (58) 94 Room Air 03/14/17 05:21 36.8 82 20 107/57 (74) 92 Room Air 03/14/17 01:23 36.8 92 20 95/52 (66) 94 Room Air 03/14/17 00:45 Room Air 03/13/17 19:51 36.8 83 20 95/52 (66) 95 Room Air 03/13/17 19:08 80 18 95/53 (67) 97 Room Air 03/13/17 17:57 89 18 104/57 (73) 96 Room Air 03/13/17 16:21 36.7 82 18 94/56 (69) 97 Room Air Physical Exam: General-aaox3 Eyes-+scleral icterus ENT-mmm Neck-supple Lungs-cta Heart-rrr Abdomen-distended, less tender Extremities-+1 edema Neuro-nonfocal Current Inpatient Medications Medications (Trade) Dose Ordered Sig/Betyt Route Start Time Stop Time Status Last Admin Dose Admin Folic Acid (Folvite Tab) 1 mg QAM PO 03/13/17 08:00 04/12/17 08:59 03/14/17 08:04 1 MG Ammonium Lactate (Lac-Hydrin) 1 appl BID PRN EXT 03/12/17 21:00 04/11/17 20:59 Lorazepam (Ativan Tab) 0.5 mg BID PRN PO 03/12/17 21:00 04/11/17 20:59 03/14/17 12:28 0.5 MG Multivitamins/ Minerals (Multivitamin W/ Minerals Tab) 1 tab DAILY PO 03/13/17 08:00 04/12/17 08:59 03/14/17 08:04 1 TAB Pantoprazole Sodium (Protonix Tab) 40 mg BID PO 03/12/17 21:00 04/11/17 20:59 03/14/17 08:04 40 MG Potassium Chloride (Klor-Con Tab) 20 meq QAM PO 03/13/17 08:00 04/12/17 08:59 03/14/17 08:05 20 MEQ Thiamine HCl (Vitamin B-1 Tab) 100 mg Q24H PO 03/12/17 21:00 04/11/17 20:59 03/13/17 20:08 100 MG Furosemide 40 mg/ Syringe 4 ml @ 4 mls/min BID17 IV 03/12/17 21:15 04/11/17 21:14 03/14/17 08:04 4 MLS/MIN Spironolactone (Aldactone Tab) 25 mg BID@0800,1700 PO 03/12/17 21:15 04/11/17 21:14 03/14/17 08:04 25 MG Miscellaneous (Iv Fluids Completed) 1 ea PRN PRN N/A 03/12/17 23:45 03/12/18 23:44 Tramadol HCl (Ultram Tab) 25 mg Q6H PRN PO 03/13/17 00:00 04/12/17 00:00 03/14/17 08:08 25 MG Lactulose (Chronulac Syrup) 30 gm TID PO 03/14/17 14:00 04/12/17 08:59 03/14/17 12:28 30 GM Midodrine (Proamatine Tab) 7.5 mg TID@,, PO 03/14/17 17:00 04/12/17 07:59 Last 24 Hours Test 03/14/17 06:50 White Blood Count 3.26 K/uL Red Blood Count 2.48 M/uL Hemoglobin 7.7 g/dL Hematocrit 23.7 % Mean Corpuscular Volume 95.6 fL Mean Corpuscular Hemoglobin 31.0 pg Mean Corpuscular Hemoglobin Concent 32.5 g/dl RDW Standard Deviation 63.4 fL RDW Coefficient of Variation 17.8 % Platelet Count 98 K/uL Mean Platelet Volume 11.2 fL Platelet Estimate DECREASED Sodium Level 127 mmol/L Potassium Level 4.1 mmol/L Chloride Level 97 mmol/L Carbon Dioxide Level 25 mmol/L Anion Gap 5.0 mmol/L Blood Urea Nitrogen 15 mg/dl Creatinine 0.95 mg/dl Est Creatinine Clear Calc Drug Dose 74.6 ml/min Estimated GFR () 78.7 Estimated GFR (Non- 67.9 BUN/Creatinine Ratio 15.6 Random Glucose 66 mg/dl Calcium Level 8.3 mg/dl Assessment & Plan Hyponatremia-hypervolemic in setting of cirrhosis-on lasix 40 iv bid and spironolactone. diuresing nicely. also on fluid restriction. sodium improved from 124 to 127.
--- NOTE | 2017-03-14 18:23 | Progress Note ---
Internal Med Progress Note Date of Service: Mar 14, 2017. Provider Documentation: SUBJECTIVE: feels much better today minimum SOB leg swelling feels better OBJECTIVE: Vital Signs-as noted below Exam: General-chronically ill appearing Eyes-sclera icteric ENT-NAD Neck-no JVD Lungs-CTA Heart-regular S1/S2 Abdomen-distended Extremities-+ 3 edema Neuro-no focal deficit Lab data as noted below. ASSESSMENT & PLAN: 52 yo F presents with increased fluid retention 2/2 decompensated cirrhosis HEPATIC CIRRHOSIS/ALCOHOLIC LIVER DISEASE : h/o portal HTN with bleeding varices s/p banding. presented with -20 lb weight gain over last month per outpatient clinic trend. 3+pitting edema and ascitic fluid in protuberant abdomen. -symptom much improved after paracentesis no evidence of hepatic encephalopathy ; pt is continued with home dose of lactulose s/p paracentesis with removal of 5.8 L of ascitic fluid on 03/14/17 Peritoneal Fluid 03/14/17: Peritoneal WBC 91, Polynuclear 14%,culture pending. SAAG 2.2 likely related to portal HTN RUQ US 03/14/17: Cirrhotic appearing liver. Persistent areas of capsular retraction, but no focal masses identified ultrasonographically. Cholelithiasis Ascites No ductal dilatation albumin ordered by GI post paracentesis cont diuretics Aldactone at 25mg BID dosing and Lasix IV BID /midodrine Fluid restriction to 1500/day and 2gm sodium restriction GI eval appreciated HYPONATREMIA ; Na level improved 125-> 127 possible due to vol overload for decompensated cirrhosis Cont Lasix IV and fluid restriction. follow PRP . Nephrology consulted, appreciate input HX OF ETOH ABUSE -reports abstinence since November pt is counselled to Continue strict ETOH abstinence GERD -Protonix BID PROLONG QTc Repeat EKG in am shows improvement Qtc 481 avoid medication may cause Qtc prolongation D/c Zofran /SSRI -Lexapro ANEMIA OF CHRONIC DISEASE : Hb 7.7 no evidence of GI bleed follow H&H transfuse for Hb < 7 or symptoms DVT PROPHYLAXIS scd and teds avoid antiplatelet for thrombocytopenia due to chronic liver disease DISPOSITION expected to be discharged home in next 24-48 hrs Vital Signs: Date Time Temp Pulse Resp B/P (MAP) Pulse Ox O2 Delivery O2 Flow Rate FiO2 03/14/17 16:54 86 18 107/56 (73) 95 Room Air 03/14/17 15:07 36.7 83 18 104/62 (76) 95 Room Air 03/14/17 11:09 36.7 82 18 113/62 (79) 95 Room Air 03/14/17 08:34 Room Air 03/14/17 07:30 36.8 83 18 87/44 (58) 94 Room Air 03/14/17 05:21 36.8 82 20 107/57 (74) 92 Room Air 03/14/17 01:23 36.8 92 20 95/52 (66) 94 Room Air 03/14/17 00:45 Room Air 03/13/17 19:51 36.8 83 20 95/52 (66) 95 Room Air 03/13/17 19:08 80 18 95/53 (67) 97 Room Air Lab Results: Results Past 24 Hours Test 03/14/17 06:50 Range/Units White Blood Count 3.26 4.8-10.8 K/uL Red Blood Count 2.48 4.2-5.4 M/uL Hemoglobin 7.7 12.0-16.0 g/dL Hematocrit 23.7 37-47 % Mean Corpuscular Volume 95.6 80-100 fL Mean Corpuscular Hemoglobin 31.0 25-34 pg Mean Corpuscular Hemoglobin Concent 32.5 32-36 g/dl RDW Standard Deviation 63.4 36.4-46.3 fL RDW Coefficient of Variation 17.8 11.5-14.5 % Platelet Count 98 130-400 K/uL Mean Platelet Volume 11.2 7.4-10.4 fL Platelet Estimate DECREASED Sodium Level 127 136-145 mmol/L Potassium Level 4.1 3.5-5.1 mmol/L Chloride Level 97 98-107 mmol/L Carbon Dioxide Level 25 21-32 mmol/L Anion Gap 5.0 3-11 mmol/L Blood Urea Nitrogen 15 7-18 mg/dl Creatinine 0.95 0.60-1.20 mg/dl Est Creatinine Clear Calc Drug Dose 74.6 ml/min Estimated GFR () 78.7 Estimated GFR (Non- 67.9 BUN/Creatinine Ratio 15.6 10-20 Random Glucose 66 70-99 mg/dl Calcium Level 8.3 8.5-10.1 mg/dl
[2017-03-14] MEDS: THIAMINE HCL 100 MG TAB PO SCH (20:26)
[2017-03-15 04:16] VITALS: BP 93/52; PULSE 88; TEMP 36.8; O2SAT 94
--- NOTE | 2017-03-15 07:16 | Nephrology Progress Note ---
Nephrology Progress Note Date of Service: Mar 15, 2017. Subjective 52 yo female with hyponatremia in the setting of cirrhosis and volume overload. s/p paracentesis. pt was noted to be confused yesterday and lactulose increased. pt does not like the lactulose secondary to the diarrhea. pt though overall feels much more comfortable. midodrine was increased yesterday. Objective Date Time Temp Pulse Resp B/P (MAP) Pulse Ox O2 Delivery O2 Flow Rate FiO2 03/15/17 04:16 36.8 88 18 93/52 (66) 94 Room Air 03/15/17 00:45 Room Air 03/14/17 23:08 36.8 91 16 115/66 (82) 94 Room Air 03/14/17 19:40 36.9 81 18 107/61 (76) 93 Room Air 03/14/17 16:54 86 18 107/56 (73) 95 Room Air 03/14/17 16:00 Room Air 03/14/17 15:07 36.7 83 18 104/62 (76) 95 Room Air 03/14/17 11:09 36.7 82 18 113/62 (79) 95 Room Air 03/14/17 08:34 Room Air 03/14/17 07:30 36.8 83 18 87/44 (58) 94 Room Air Physical Exam: General-aaox3 Eyes-+scleral icterus ENT-mmm Neck-supple Lungs-clear Heart-regular Abdomen-distended but still soft Extremities-+1 edema up her legs Neuro-nonfocal Current Inpatient Medications Medications (Trade) Dose Ordered Sig/Betty Route Start Time Stop Time Status Last Admin Dose Admin Folic Acid (Folvite Tab) 1 mg QAM PO 03/13/17 08:00 04/12/17 08:59 03/14/17 08:04 1 MG Ammonium Lactate (Lac-Hydrin) 1 appl BID PRN EXT 03/12/17 21:00 04/11/17 20:59 Lorazepam (Ativan Tab) 0.5 mg BID PRN PO 03/12/17 21:00 04/11/17 20:59 03/14/17 23:38 0.5 MG Multivitamins/ Minerals (Multivitamin W/ Minerals Tab) 1 tab DAILY PO 03/13/17 08:00 04/12/17 08:59 03/14/17 08:04 1 TAB Pantoprazole Sodium (Protonix Tab) 40 mg BID PO 03/12/17 21:00 04/11/17 20:59 03/14/17 20:26 40 MG Potassium Chloride (Klor-Con Tab) 20 meq QAM PO 03/13/17 08:00 04/12/17 08:59 03/14/17 08:05 20 MEQ Thiamine HCl (Vitamin B-1 Tab) 100 mg Q24H PO 03/12/17 21:00 04/11/17 20:59 03/14/17 20:26 100 MG Furosemide 40 mg/ Syringe 4 ml @ 4 mls/min BID17 IV 03/12/17 21:15 04/11/17 21:14 03/14/17 16:55 4 MLS/MIN Spironolactone (Aldactone Tab) 25 mg BID@0800,1700 PO 03/12/17 21:15 04/11/17 21:14 03/14/17 16:56 25 MG Miscellaneous (Iv Fluids Completed) 1 ea PRN PRN N/A 03/12/17 23:45 03/12/18 23:44 Tramadol HCl (Ultram Tab) 25 mg Q6H PRN PO 03/13/17 00:00 04/12/17 00:00 03/14/17 23:38 25 MG Lactulose (Chronulac Syrup) 30 gm TID PO 03/14/17 14:00 04/12/17 08:59 03/14/17 20:26 30 GM Midodrine (Proamatine Tab) 7.5 mg TID@08,12,17 PO 03/14/17 17:00 04/12/17 07:59 03/14/17 16:57 7.5 MG Last 24 Hours Test 03/15/17 04:44 Assessment & Plan Hyponatremia-hypervolemic in setting of cirrhosis-on lasix 40 iv bid and spironolactone 25mg po bid. pt more comfortable. labs pending for this am. sodium has improved from 124 to 127. Edema-albumin levels are poor. ua did not show proteinuria but checking prot/ cr to be thorough along with echo per recommendations of GI to look for other causes of third spacing of fluid. will check a tsh as well. hypotension-pt was walking yesterday, difficulty with balance but no lightheadedness. on higher dose of midodrine. if still with issues, consider albumin to help improve intravascular volume. for now, hold on the albumin. pancytopenia-defer to primary hospitalist. question any possibillity of variceal bleeding. pt though rather comfortable. would recheck cbc again at noon to follow trend.
[2017-03-15 07:32] VITALS: BP 102/59; PULSE 84; TEMP 36.7; O2SAT 94
[2017-03-15 07:51] LABS: INR 1.5 (0.9-1.1); PROTHROMBIN TIME (PATIENT) 16.1 SECONDS (9.0-12.0)
[2017-03-15 07:56] LABS: MEAN CELL VOLUME 95.8 fL (80-100); MEAN CORPUSCULAR HEMOGLOBIN 32.9 pg (25-34); MEAN CORPUSCULAR HGB CONC 34.3 g/dl (32-36); WHITE BLOOD COUNT 3.83 K/uL (4.8-10.8)
[2017-03-15 07:57] LABS: MEAN PLATELET VOLUME 10.2 fL (7.4-10.4); PLATELET COUNT 98 K/uL (130-400)
[2017-03-15 08:00] VITALS: O2SAT 94
[2017-03-15 08:05] LABS: BUN/CREATININE RATIO 13.9 (10-20); CALCIUM 8.3 mg/dl (8.5-10.1); CREATININE 0.93 mg/dl (0.60-1.20); POTASSIUM 3.8 mmol/L (3.5-5.1)
[2017-03-15] MEDS: SPIRONOLACTONE 25 MG TAB PO SCH ×2 (08:16→17:20)
[2017-03-15] MEDS: LACTULOSE SYRUP 30 GM/45 ML UDP PO SCH ×2 (08:16→14:42)
[2017-03-15 08:17] LABS: THYROID STIMULATING HORMONE 1.55 uIu/ml (0.300-4.500)
[2017-03-15] MEDS: CEROVITE ADV FORMULA TAB PO SCH (08:17)
[2017-03-15] MEDS: PANTOprazole SOD 40 MG TAB PO SCH (08:17)
[2017-03-15] MEDS: POTASSIUM CHLORIDE 20 MEQ TABCR PO SCH (08:17)
[2017-03-15] MEDS: FUROSEMIDE INJ 40 MG in SYRINGE 0 ML IV SCH (08:18)
[2017-03-15] MEDS: MIDODRINE 2.5 MG TAB PO SCH ×3 (08:18→17:21)
[2017-03-15] MEDS: TRAMADOL HCL 50 MG TAB PO PRN ×2 (09:13→14:50)
[2017-03-15 10:39] LABS: URINE PROTIEN/CREAT RATIO 0.1 (0-0.2); URINE TOTAL PROTEIN 13.4 mg/dl (0-11.9)
[2017-03-15 11:21] VITALS: BP 119/68; PULSE 83; TEMP 36.7; O2SAT 94
--- NOTE | 2017-03-15 12:31 | Gastroenterology Progress Note ---
Progress Note Date of Service: Mar 15, 2017 Subjective Pt evaluation today including: conversation w/ patient, physical exam, chart review, lab review Pt was seen and evaluated, chart reviewed. H&H dropping this admission, no evidence of any GIB. Pt adamantly denies any rectal bleeding, melena or emesis. Discussed with staff design engineer who tells me there has not been any s/s of GIB. She voices concern about left lower extremity edema > right. Pt tells me she feels well and wants to go home. No fever, chills, CP, SOB. Review of Systems Constitutional: No fever, No chills ENT: No hearing loss Respiratory: No cough, No shortness of breath Cardiac: No chest pain, No edema Abdomen: No pain, No nausea, No vomiting, No diarrhea, No constipation, No GI bleeding Medications Current Inpatient Medications Medications (Trade) Dose Ordered Sig/Betty Route Start Time Stop Time Status Last Admin Dose Admin Folic Acid (Folvite Tab) 1 mg QAM PO 03/13/17 08:00 04/12/17 08:59 03/15/17 08:17 1 MG Ammonium Lactate (Lac-Hydrin) 1 appl BID PRN EXT 03/12/17 21:00 04/11/17 20:59 03/15/17 08:23 1 APPL Lorazepam (Ativan Tab) 0.5 mg BID PRN PO 03/12/17 21:00 04/11/17 20:59 03/14/17 23:38 0.5 MG Multivitamins/ Minerals (Multivitamin W/ Minerals Tab) 1 tab DAILY PO 03/13/17 08:00 04/12/17 08:59 03/15/17 08:17 1 TAB Pantoprazole Sodium (Protonix Tab) 40 mg BID PO 03/12/17 21:00 04/11/17 20:59 03/15/17 08:17 40 MG Potassium Chloride (Klor-Con Tab) 20 meq QAM PO 03/13/17 08:00 04/12/17 08:59 03/15/17 08:17 20 MEQ Thiamine HCl (Vitamin B-1 Tab) 100 mg Q24H PO 03/12/17 21:00 04/11/17 20:59 03/14/17 20:26 100 MG Furosemide 40 mg/ Syringe 4 ml @ 4 mls/min BID17 IV 03/12/17 21:15 04/11/17 21:14 03/15/17 08:18 4 MLS/MIN Spironolactone (Aldactone Tab) 25 mg BID@0800,1700 PO 03/12/17 21:15 04/11/17 21:14 03/15/17 08:16 25 MG Miscellaneous (Iv Fluids Completed) 1 ea PRN PRN N/A 03/12/17 23:45 03/12/18 23:44 Tramadol HCl (Ultram Tab) 25 mg Q6H PRN PO 03/13/17 00:00 04/12/17 00:00 03/15/17 09:13 25 MG Lactulose (Chronulac Syrup) 30 gm TID PO 03/14/17 14:00 04/12/17 08:59 03/15/17 08:16 30 GM Midodrine (Proamatine Tab) 7.5 mg TID@08,12,17 PO 03/14/17 17:00 04/12/17 07:59 03/15/17 08:18 7.5 MG Objective Vital Signs Date Time Temp Pulse Resp B/P (MAP) Pulse Ox O2 Delivery O2 Flow Rate FiO2 03/15/17 11:21 36.7 83 18 119/68 (85) 94 Room Air 03/15/17 07:32 36.7 84 18 102/59 (73) 94 Room Air 03/15/17 04:16 36.8 88 18 93/52 (66) 94 Room Air 03/15/17 00:45 Room Air 03/14/17 23:08 36.8 91 16 115/66 (82) 94 Room Air 03/14/17 19:40 36.9 81 18 107/61 (76) 93 Room Air 03/14/17 16:54 86 18 107/56 (73) 95 Room Air 03/14/17 16:00 Room Air 03/14/17 15:07 36.7 83 18 104/62 (76) 95 Room Air Physical Exam General Appearance: no apparent distress Eyes: PERRL ENT: hearing grossly normal Neck: supple Respiratory/Chest: lungs clear Cardiovascular: regular rate, rhythm Abdomen: non tender, soft, no organomegaly, no pulsatile mass Extremities: + pedal edema (bilateral lower extremity edema improving but L>R) Neurologic/Psych: alert, normal mood/affect, oriented x 3 Skin: warm/dry, + jaundice Laboratory Results Last 24 Hours Test 03/15/17 07:14 03/15/17 08:40 White Blood Count 3.83 K/uL Red Blood Count 2.40 M/uL Hemoglobin 7.9 g/dL Hematocrit 23.0 % Mean Corpuscular Volume 95.8 fL Mean Corpuscular Hemoglobin 32.9 pg Mean Corpuscular Hemoglobin Concent 34.3 g/dl RDW Standard Deviation 62.5 fL RDW Coefficient of Variation 17.8 % Platelet Count 98 K/uL Mean Platelet Volume 10.2 fL Prothrombin Time 16.1 SECONDS Prothromb Time International Ratio 1.5 Sodium Level 130 mmol/L Potassium Level 3.8 mmol/L Chloride Level 99 mmol/L Carbon Dioxide Level 24 mmol/L Anion Gap 7.0 mmol/L Blood Urea Nitrogen 13 mg/dl Creatinine 0.93 mg/dl Est Creatinine Clear Calc Drug Dose 73.2 ml/min Estimated GFR () 80.8 Estimated GFR (Non- 69.7 BUN/Creatinine Ratio 13.9 Random Glucose 77 mg/dl Calcium Level 8.3 mg/dl Total Bilirubin 2.9 mg/dl Direct Bilirubin 1.9 mg/dl Aspartate Amino Transf (AST/SGOT) 48 U/L Alanine Aminotransferase (ALT/SGPT) 16 U/L Alkaline Phosphatase 188 U/L Total Protein 5.4 gm/dl Albumin 2.6 gm/dl Thyroid Stimulating Hormone (TSH) 1.550 uIu/ml Urine Osmolality 356 mOms/kg Urine Random Creatinine 130.0 mg/dl Urine Random Total Protein 13.6 mg/dl Urine Protein/Creatinine Ratio 0.1 Assessment and Plan Patient is a 52 year old female w/ decompensated alcohol-induced cirrhosis, she has been sober from ETOH since December 16 2016, she has never been evaluated by transplant team in [place]. She was admitted to [facility] due to hyponatremia and fluid overload, nephrology following w/ lasix/spironolactone and midodrine. GI consulted for additional management. Will arrange paracentesis, diagnostic and therapeutic w/ albumin before and after. 6L fluid off yesterday, no evidence of SBP, sodium this AM 127. Additional urine studies and ECHO ordered. Nephrology following as well Plan - No evidence of GIB - Trend H&H - Monitor for s/s of GIB - heme stools - Low NA diet - 1500 mL fluid restriction - Diuretics per nephrology: IV Lasix 40 BID, spironolactone 25 BID, midodrine 7.5 TID - Continue strict ETOH abstinence - Follow up ECHO when available - Outpatient EGD - will need close outpatient follow up with GI - will need to be evaluated by transplant clinic - Lactulose 30 gm TID, staff design engineer can titrate this to 2-3 BMs daily - Xifaxan 550 BID - MELD 26 (driven by hyponatremia) - Maddrey Function 20 Please call with any questions or concerns. ATTESTATION: I have performed a history and physical examination of this patient and reviewed the electronic record. Specifically, on physical examination abdomen is soft and non tender, there is no sign of active GI bleeding. I have discussed the case with WILBERT Blackwell. The above note reflects my findings, conclusions, and recommendations. Raad Perez MD
[2017-03-15] MEDS ORDERED: XFX550 PO (14:01)
--- NOTE | 2017-03-15 14:02 | Discharge Instructions ---
Discharge Instructions Date of Service Mar 15, 2017. Admission Reason for Admission: Decompensated Hepatic Cirrhosis Discharge Discharge Diagnosis / Problem: ALCHOLIC CIRRHOSIS OF LIVER /HYPONATREMIA Discharge Goals Goal(s): Decrease discomfort, Diagnostic testing, Therapeutic intervention Activity Recommendations Activity Limitations: resume your previous activity . Instructions / Follow-Up Instructions / Follow-Up HOSPITAL FOLLOW UP 03/20/2017 1:00 PM Sierra Spencer MD General Internal Medicine [facility] GI FOLLOW UP 04/25/2017 1:40 PM Tan Funk MD Gastroenterology, [facility] Hospital Diet Patient's current hospital diet: Low Sodium Diet (2gm Na) Discharge Diet Recommended Diet: Low Sodium Diet (2gm Na) Fluid Restriction: 1500 ml (6 cups) Pending Studies Studies pending at discharge: yes List of pending studies: LAB WORK: COMPLETE BLOOD WORK , BASIC METABOLIC PANEL WITH NEXT PHYSICIAN VISIT Medical Emergencies . Who to Call and When: Medical Emergencies: If at any time you feel your situation is an emergency, please call 911 immediately. . Non-Emergent Contact Non-Emergency issues call your: Primary Care Provider . . "Provider Documentation" section prepared by Nerissa Barton. . VTE Core Measure Inpt VTE Proph given/why not?: Joy Ellis, SCD's
[2017-03-15] MEDS ORDERED: ULT50X PO (15:00)
--- NOTE | 2017-03-15 15:58 | DIAGNOSTIC IMAGING REPORT ---
VENOUS DOPPLER LW EXT BILA HISTORY: Pain. Edema. L>R lower extreme edema COMPARISON STUDY: None. FINDINGS: There is normal compressibility, flow, and augmentation within the bilateral lower extremity deep venous systems. IMPRESSION: No DVT within the right or left lower extremity. The above report was generated using voice recognition software. It may contain grammatical, syntax or spelling errors. Electronically signed by: Mirza Spain M.D. 03/15/2017 3:57 PM Dictated Date/Time: 03/15/2017 3:56 PM
--- NOTE | 2017-03-15 16:37 | ECHOCARDIOGRAM REPORT ---
*NOTICE TO RECEIVING [employer] This information is strictly Confidential and protected under [place] law. [place] law prohibits you from making any further disclosure of this information unless further disclosure is expressly permitted by the written consent of the person to whom it pertains or is authorized by law. A general authorization for the release of medical or other information is not sufficient for this purpose. Hospital accepts no responsibility if the information is made available to any other person, INCLUDING THE PATIENT. Interpretation Summary * Name: JUAN M HATFIELD Study Date: 03/15/2017 01:49 PM BP: 93/52 mmHg * Patient Location: .[id number]\E422\S\1 HR: 88 * : 1965 (M/d/yyyy) Gender: Female Height: 65 in * Age: 52 yrs Ethnicity: [place] Weight: 180 lb * Ordering Physician: Nerissa Barton * Referring Physician: Self, Referred * Performed By: García [facility] * * Reason For Study: CHF * BSA: 1.9 m2 * -- Conclusions -- * No regional wall motion abnormalities noted. * The LV Ejection Fraction = >70 %. * The right ventricle is normal in size and function. * There is a trace circumferential pericardial effusion. * There are no echocardiographic indications of cardiac tamponade. * Large left pleural effusion. * There appears to be atelectatic lung noted in the left pleural space and fibrinous material adherent to the parietal pericardium (in pleural space). * The fluide is adjaceent to the lateral wall , cardiac apex and posterior wall. * Ascites is noted. Procedure Details * A complete two-dimensional transthoracic echocardiogram was performed (2D, M-mode, Doppler and color flow Doppler). Left Ventricle * The left ventricle is normal in size. * There is normal left ventricular wall thickness. * The left ventricle is hyperdynamic. * Ejection Fraction = >70 %. * The left ventricular wall motion is normal. * No regional wall motion abnormalities noted. Right Ventricle * The right ventricle is normal in size and function. Atria * The left atrial size is normal. * Right atrial size is normal. * There is no evidence of atrial septal defect, but resolution does not allow assessment for a patent foramen ovale. Mitral Valve * The mitral valve is normal. * There is no mitral valve stenosis. * Significant mitral regurgitation is absent. Tricuspid Valve * The tricuspid valve is normal. * There is no tricuspid stenosis. * Significant tricuspid regurgitation is absent. * Doppler findings do not suggest pulmonary hypertension. Aortic Valve * The aortic valve is trileaflet. * Aortic stenosis is absent. * There is no significant aortic regurgitation. Pulmonic Valve * The pulmonary valve is not well seen, but the Doppler examination is normal without significant regurgitation or stenosis. Great Vessels * The aortic root and proximal ascending aorta are normal sized. Pericardium/Pleural * There is a trace circumferential pericardial effusion. * There are no echocardiographic indications of cardiac tamponade. * Large left pleural effusion. * There appears to be atelectatic lung noted in the left pleural space and fibrinous material adherent to the parietal pericardium (in pleural space). The fluide is adjaceent to the lateral wall , cardiac apex and posterior wall. Ascites is noted. Great Vessels * Normal inferior vena cava diameter and respiratory variation suggests normal central venous pressure. * Normal inferior vena cava size and collapsability with sniff indicates a normal right atrial pressure of 3 mmHg Left Ventricular Diastolic Function * Diastolic dysfunction, Grade II (pseudonormalization pattern). MMode 2D Measurements and Calculations Ao root diam 3.1 cm Ao root area 7.7 cm\S\2 ACS 1.4 cm LA dimension 4.1 cm asc Aorta Diam 2.9 cm LA/Ao 1.3 LVAd ap4 29.4 cm\S\2 LVLd ap4 8.4 cm EDV(MOD-sp4) 84.4 ml EDV(sp4-el) 87.4 ml LVAs ap4 20.3 cm\S\2 LVLs ap4 7.6 cm ESV(MOD-sp4) 44.0 ml ESV(sp4-el) 46.0 ml EF(MOD-sp4) 47.8 % EF(sp4-el) 47.4 % LVAd ap2 40.1 cm\S\2 LVLd ap2 8.6 cm EDV(MOD-sp2) 156.8 ml EDV(sp2-el) 158.8 ml LVAs ap2 20.7 cm\S\2 LVLs ap2 6.2 cm ESV(MOD-sp2) 57.7 ml ESV(sp2-el) 58.5 ml EF(MOD-sp2) 63.2 % EF(sp2-el) 63.1 % LVLd %diff 2.4 % EDV(MOD-bp) 117.1 ml LVLs %diff -23.53 % ESV(MOD-bp) 56.0 ml EF(MOD-bp) 52.2 % SV(MOD-sp4) 40.4 ml SI(MOD-sp4) 21.3 ml/m\S\2 SV(MOD-sp2) 99.1 ml SI(MOD-sp2) 52.4 ml/m\S\2 SV(MOD-bp) 61.1 ml SI(MOD-bp) 32.3 ml/m\S\2 SV(sp4-el) 41.4 ml SI(sp4-el) 21.9 ml/m\S\2 SV(sp2-el) 100.2 ml SI(sp2-el) 53.0 ml/m\S\2 Doppler Measurements and Calculations MV E max karsten 100.4 cm/sec MV A max karsten 88.6 cm/sec MV E/A 1.1 MV P1/2t max karsten 107.2 cm/sec MV P1/2t 74.0 msec MVA(P1/2t) 3.0 cm\S\2 MV dec slope 424.3 cm/sec\S\2 MV dec time 0.28 sec Ao V2 max 176.6 cm/sec Ao max PG 12.5 mmHg Ao max PG (full) 4.1 mmHg LV V1 max PG 8.4 mmHg LV V1 max 144.5 cm/sec PA V2 max 91.9 cm/sec PA max PG 3.4 mmHg TR max karsten 254.2 cm/sec
[2017-03-15 17:09] VITALS: BP 119/68; PULSE 83; TEMP 36.7; O2SAT 94
--- NOTE | 2017-03-15 17:55 | Progress Note ---
Internal Med Progress Note Date of Service: Mar 15, 2017. Provider Documentation: SUBJECTIVE: no complain of SOB or chest discomfort feels fine stable to be discharged home today OBJECTIVE: Vital Signs-as noted below Exam: General-chronically ill appearing Eyes-sclera icteric ENT-NAD Neck-no JVD Lungs-CTA Heart-regular S1/S2 Abdomen-distended Extremities-+ 3 edema Neuro-no focal deficit Lab data as noted below. ASSESSMENT & PLAN: 52 yo F presents with increased fluid retention 2/2 decompensated cirrhosis HEPATIC CIRRHOSIS/ALCOHOLIC LIVER DISEASE : h/o portal HTN with bleeding varices s/p banding. presented with -20 lb weight gain over last month per outpatient clinic trend. 3+pitting edema and ascitic fluid in protuberant abdomen. -symptom much improved after paracentesis no evidence of hepatic encephalopathy ; pt is continued with home dose of lactulose s/p paracentesis with removal of 5.8 L of ascitic fluid on 03/14/17 Peritoneal Fluid 03/14/17: Peritoneal WBC 91, Polynuclear 14%,culture pending. SAAG 2.2 likely related to portal HTN RUQ US 03/14/17: Cirrhotic appearing liver. Persistent areas of capsular retraction, but no focal masses identified ultrasonographically. Cholelithiasis Ascites No ductal dilatation ECHO : * The LV Ejection Fraction = >70 %. * The right ventricle is normal in size and function. * There is a trace circumferential pericardial effusion. * There are no echocardiographic indications of cardiac tamponade. * Large left pleural effusion. * There appears to be atelectatic lung noted in the left pleural space and fibrinous material adherent to the parietal pericardium (in pleural space). * The fluide is adjaceent to the lateral wall , cardiac apex and posterior wall. * Ascites is noted. albumin ordered by GI post paracentesis cont diuretics Aldactone at 25mg BID dosing and Lasix 40 mg BID /midodrine added Rifaximin cont Fluid restriction to 1500/day and 2gm sodium restriction GI eval appreciated HYPONATREMIA ; Na level improved 125-> 127 -> 130 possible due to vol overload for decompensated cirrhosis Cont Lasix IV and fluid restriction. follow PRP . Nephrology consulted, appreciate input HX OF ETOH ABUSE -reports abstinence since November pt is counselled to Continue strict ETOH abstinence GERD -Protonix BID PROLONG QTc Repeat EKG in am shows improvement Qtc 481 avoid medication may cause Qtc prolongation D/c Zofran /SSRI -Lexapro ANEMIA OF CHRONIC DISEASE : Hb 7.7 -> 7.9 no evidence of GI bleed follow H&H transfuse for Hb < 7 or symptoms DVT PROPHYLAXIS scd and teds avoid antiplatelet for thrombocytopenia due to chronic liver disease DISPOSITION stable to be discharged home today Vital Signs: Date Time Temp Pulse Resp B/P (MAP) Pulse Ox O2 Delivery O2 Flow Rate FiO2 03/15/17 17:09 36.7 83 18 94 Room Air 03/15/17 11:21 36.7 83 18 119/68 (85) 94 Room Air 03/15/17 08:00 94 Room Air 03/15/17 07:32 36.7 84 18 102/59 (73) 94 Room Air 03/15/17 04:16 36.8 88 18 93/52 (66) 94 Room Air 03/15/17 00:45 Room Air 03/14/17 23:08 36.8 91 16 115/66 (82) 94 Room Air 03/14/17 19:40 36.9 81 18 107/61 (76) 93 Room Air Lab Results: Results Past 24 Hours Test 03/15/17 07:14 03/15/17 08:40 Range/Units White Blood Count 3.83 4.8-10.8 K/uL Red Blood Count 2.40 4.2-5.4 M/uL Hemoglobin 7.9 12.0-16.0 g/dL Hematocrit 23.0 37-47 % Mean Corpuscular Volume 95.8 80-100 fL Mean Corpuscular Hemoglobin 32.9 25-34 pg Mean Corpuscular Hemoglobin Concent 34.3 32-36 g/dl RDW Standard Deviation 62.5 36.4-46.3 fL RDW Coefficient of Variation 17.8 11.5-14.5 % Platelet Count 98 130-400 K/uL Mean Platelet Volume 10.2 7.4-10.4 fL Prothrombin Time 16.1 9.0-12.0 SECONDS Prothromb Time International Ratio 1.5 0.9-1.1 Sodium Level 130 136-145 mmol/L Potassium Level 3.8 3.5-5.1 mmol/L Chloride Level 99 98-107 mmol/L Carbon Dioxide Level 24 21-32 mmol/L Anion Gap 7.0 3-11 mmol/L Blood Urea Nitrogen 13 7-18 mg/dl Creatinine 0.93 0.60-1.20 mg/dl Est Creatinine Clear Calc Drug Dose 73.2 ml/min Estimated GFR () 80.8 Estimated GFR (Non- 69.7 BUN/Creatinine Ratio 13.9 10-20 Random Glucose 77 70-99 mg/dl Calcium Level 8.3 8.5-10.1 mg/dl Total Bilirubin 2.9 0.2-1 mg/dl Direct Bilirubin 1.9 0-0.2 mg/dl Aspartate Amino Transf (AST/SGOT) 48 15-37 U/L Alanine Aminotransferase (ALT/SGPT) 16 12-78 U/L Alkaline Phosphatase 188 45-117 U/L Total Protein 5.4 6.4-8.2 gm/dl Albumin 2.6 3.4-5.0 gm/dl Thyroid Stimulating Hormone (TSH) 1.550 0.300-4.500 uIu/ml Urine Osmolality 356 500-800 mOms/kg Urine Random Creatinine 130.0 mg/dl Urine Random Total Protein 13.6 0-11.9 mg/dl Urine Protein/Creatinine Ratio 0.1 0-0.2
--- NOTE | 2017-03-15 17:58 | Discharge Summary ---
Discharge Summary Date of Service Mar 15, 2017. Discharge Summary Admission Date: Mar 14, 2017 at 10:10 Discharge Date: Mar 15, 2017 Discharge Disposition: Home Principal Diagnosis: ALCOHOLIC CIRRHOSIS OF LIVER /HYPONATREMIA Procedures: PARACENTESIS Consultations: GASTROENTEROLOGY Medication Reconciliation New Medications: Rifaximin (Xifaxan) 550 Mg Tab 550 MG PO BID for 30 Days, #60 TAB 2 Refills Tramadol HCl (Tramadol HCl) 50 Mg Tab 25 MG PO Q6H PRN for pain, #10 TAB Continued Medications: Escitalopram (Lexapro) 10 Mg Tab 10 MG PO QAM Folic Acid (Folic Acid) 1 Mg Tab 1 MG PO QAM for 30 Days, #30 TAB Furosemide (Furosemide) 40 Mg Tab 1 TAB PO UD take 80mg po every AM, and 40mg PO every PM. Lactic Acid (Ammonium Lactate) (Lac-Hydrin Twelve) 12 % Lot 1 APPLN EXT UD, #1 TUBE Lactulose (Lactulose) 30 Gm/45 Ml Syrp 45 ML PO UD for 30 Days, 2 Refills LACTULOSE 15-45ML PO 1-3 TIMES A DAY FOR 3-4 BOWEL MOVEMENTS A DAY Lorazepam (Ativan) 0.5 Mg Tab 0.5 MG PO BID PRN for Anxiety Midodrine (Midodrine HCl) 2.5 Mg Tab 5 MG PO TID@08,12,17 for 30 Days, #90 TAB Multivitamins/Minerals (Mvi With Minerals) Tab 1 TAB PO DAILY for 30 Days, TAB 2 Refills Pantoprazole (Protonix) 40 Mg Tab 40 MG PO BID Potassium Chloride (Klor-Con M20) 20 Meq Tabcr 20 MEQ PO QAM for 30 Days, #30 MEQ Spironolactone (Spironolactone) 25 Mg Tab 25 MG PO BID, #30 TAB 2 Refills Thiamine HCl (Vitamin B-1) 100 Mg Tab 100 MG PO Q24H, #30 TAB 1 Refill Admission Information HPI (per Admitting provider): 52 o alcoholic cirrhotic presents with a 20 lb weight gain in the past month. She was recently admitted twice in short succession with a similar presentation. She was admitted 02/02- for hyponatremia and swelling, was placed on diuretics and fluid restriction and was started on midodrine for orthostatic hypotension with improvement. At that time she also underwent a paracentesis that was not infected and 3.3L were taken off. That same admission revealed multiple nondisplaced rib fractures on both side of her sternum related to a fall thought to be related to intoxication. She reports that her last alcoholic drink was December 16. She was then readmitted 02/22-03/01 again for hyponatremia and swelling related to cirrhosis. At that time she had pleuritic chest pain and shortness of breath with some confusion. She had another paracentesis with 2L taken off and was diuresed with IV Lasix again. She reports leaving still with edema which she reports is new for her, and now has felt the edema track up to her thighs with continued weight gain. Although she states that she sticks to a fluid restriction, she can't quite remember it and emphatically expressed how thirsty she is all the time. She denies any excessive salt use and reports compliance with her medications and abstinence from alcohol. ROS reveals some substernal chest pain that stabs her and causes discomfort when her fluid-filled belly pushes up on it-whatever position that might provoke that. As I pushed on her suprapubic area on exam, for instance, she reported the substernal pain in the top of her abdomen. She reports having 2-3 BMs daily on the lactulose and denies confusion. She reports shortness of breath and defines it as not being able to take a deep breath with the large fluid filled belly pushing up on her diaphragm. She denies any fevers, chills or other abdominal pain and does not appear toxic. She denies any UTI symptoms but does report some urgency with little urine output of late. She reports some headache, denies cough, sore throat, she is tolerating PO and denies nausea. She also denies any GI bleeding or changes in stool consistency or color. She was on Lasix 40mg BID and Spironolactone 25mg PO BID and during her hospital followup with her PCP on 03/05 her Lasix was increased to 80mg qAM and 40mg qPM. Physical Exam (per Admitting): General Appearance: WD/WN, no apparent distress Head: normocephalic, atraumatic Eyes: normal inspection, PERRL, EOMI, + abnormal sclerae exam (jaundiced) ENT: normal ENT inspection, hearing grossly normal, pharynx normal, + pertinent finding (cold sores on mouth) Neck: supple, no JVD, trachea midline Respiratory/Chest: lungs clear, normal breath sounds, no respiratory distress, no accessory muscle use Cardiovascular: regular rate, rhythm, no gallop, no murmur, + pertinent finding (edema 3+pitting, to thighs bilaterally) Abdomen/GI: normal bowel sounds, non tender, soft Back: normal inspection Extremities/Musculoskelatal: normal inspection, normal range of motion Neurologic/Psych: underwriting clerk II-XII nml as tested, no motor/sensory deficits, alert , normal mood/affect, oriented x 3 Skin: normal color, warm/dry, + pertinent finding (spider angiomata on her anterior chest and shoulders) Hospital Course 52 yo F presents with increased fluid retention 2/2 decompensated cirrhosis HEPATIC CIRRHOSIS/ALCOHOLIC LIVER DISEASE : h/o portal HTN with bleeding varices s/p banding. presented with -20 lb weight gain over last month per outpatient clinic trend. 3+pitting edema and ascitic fluid in protuberant abdomen. -symptom much improved after paracentesis no evidence of hepatic encephalopathy ; pt is continued with home dose of lactulose s/p paracentesis with removal of 5.8 L of ascitic fluid on 03/14/17 Peritoneal Fluid 03/14/17: Peritoneal WBC 91, Polynuclear 14%,culture pending. SAAG 2.2 likely related to portal HTN RUQ US 03/14/17: Cirrhotic appearing liver. Persistent areas of capsular retraction, but no focal masses identified ultrasonographically. Cholelithiasis Ascites No ductal dilatation ECHO : * The LV Ejection Fraction = >70 %. * The right ventricle is normal in size and function. * There is a trace circumferential pericardial effusion. * There are no echocardiographic indications of cardiac tamponade. * Large left pleural effusion. * There appears to be atelectatic lung noted in the left pleural space and fibrinous material adherent to the parietal pericardium (in pleural space). * The fluide is adjaceent to the lateral wall , cardiac apex and posterior wall. * Ascites is noted. albumin ordered by GI post paracentesis cont diuretics Aldactone at 25mg BID dosing and Lasix 40 mg BID /midodrine added Rifaximin cont Fluid restriction to 1500/day and 2gm sodium restriction GI eval appreciated HYPONATREMIA ; Na level improved 125-> 127 -> 130 possible due to vol overload for decompensated cirrhosis Cont Lasix IV and fluid restriction. follow PRP . Nephrology consulted, appreciate input HX OF ETOH ABUSE -reports abstinence since November pt is counselled to Continue strict ETOH abstinence GERD -Protonix BID PROLONG QTc Repeat EKG in am shows improvement Qtc 481 avoid medication may cause Qtc prolongation D/c Zofran /SSRI -Lexapro ANEMIA OF CHRONIC DISEASE : Hb 7.7 -> 7.9 no evidence of GI bleed follow H&H transfuse for Hb < 7 or symptoms DVT PROPHYLAXIS scd and teds avoid antiplatelet for thrombocytopenia due to chronic liver disease DISPOSITION stable to be discharged home today Total time spent on discharge =35 mins This includes examination of the patient, discharge planning, medication reconciliation, and communication with other providers. Discharge Instructions Discharge Instructions Date of Service Mar 15, 2017. Admission Reason for Admission: Decompensated Hepatic Cirrhosis Discharge Discharge Diagnosis / Problem: ALCOHOLIC CIRRHOSIS OF LIVER /HYPONATREMIA Discharge Goals Goal(s): Decrease discomfort, Diagnostic testing, Therapeutic intervention Activity Recommendations Activity Limitations: resume your previous activity . Instructions / Follow-Up Instructions / Follow-Up HOSPITAL FOLLOW UP 03/20/2017 1:00 PM Sierra Spencer MD General Internal Medicine [facility] GI FOLLOW UP 04/25/2017 1:40 PM Tan Funk MD Gastroenterology, [facility] Current Hospital Diet Patient's current hospital diet: Low Sodium Diet (2gm Na) Discharge Diet Recommended Diet: Low Sodium Diet (2gm Na) Fluid Restriction: 1500 ml (6 cups) Pending Studies Studies pending at discharge: yes List of pending studies: LAB WORK: COMPLETE BLOOD WORK , BASIC METABOLIC PANEL WITH NEXT PHYSICIAN VISIT Medical Emergencies . Who to Call and When: Medical Emergencies: If at any time you feel your situation is an emergency, please call 911 immediately. . Non-Emergent Contact Non-Emergency issues call your: Primary Care Provider . . "Provider Documentation" section prepared by Nerissa Barton. . VTE Core Measure Inpt VTE Proph given/why not?: Joy Ellis, SCD's
[2017-03-15] MEDS ORDERED: RIFAXIMIN TAB 550 MG TAB PO SCH (20:00)
== END 2017-03-15 18:14 | disposition home or self-care (01) | DRG 433 ==
LOC: C.EDB 16:32 → ENRESERV 21:15 → C.4E 21:30 → OBSVTOIN 03-14 10:10
PROVIDERS: ADMIT Hospitalist; ATTEND Hospitalist
PROC: 0W9G3ZZ Drainage of Peritoneal Cavity, Percutaneous Approach (ICD-10-PCS; principal; 2017-03-13)
DX: K70.31 Alcoholic cirrhosis of liver with ascites (principal); K76.6 Portal hypertension; E87.1 Hypo-osmolality and hyponatremia; D61.818 Other pancytopenia; F10.21 Alcohol dependence, in remission; K21.9 Gastro-esophageal reflux disease without esophagitis; I45.81 Long QT syndrome; D50.0 Iron deficiency anemia secondary to blood loss (chronic); D63.8 Anemia in other chronic diseases classified elsewhere; I95.9 Hypotension, unspecified; F32.9 Major depressive disorder, single episode, unspecified; F17.200 Nicotine dependence, unspecified, uncomplicated; Z86.79 Personal history of other diseases of the circulatory system; Z79.899 Other long term (current) drug therapy; Z82.3 Family history of stroke

== ENCOUNTER 2017-04-09 17:45 | Inpatient (IN) | payer BC ==
[~2017-04-09] VITALS: Ht 165.1 cm; Wt 91.1 kg
[~2017-04-09 17:45] MED LIST changes: -NYSS5 PO; -TRAM-10 PO; +ULT50X PO; +XFX550 PO
[2017-04-09] MEDS ORDERED: TRAM-10 PO (18:22)
[2017-04-09] MEDS ORDERED: ONDA4TAB46 PO (18:22)
[2017-04-09] MEDS ORDERED: LACT3000 PO (18:22)
[2017-04-09] MEDS ORDERED: PRMT25 PO (18:22)
[2017-04-09] MEDS ORDERED: FURO80TA63 PO (18:22)
--- NOTE | 2017-04-09 18:31 | EMERGENCY ROOM VISIT NOTE ---
History Report prepared by Jackelin: Reginaldo Anderson Under the Supervision of: Dr. Sierra Wang D.O. First contact with patient: 18:06 Chief Complaint: OTHER COMPLAINT Stated Complaint: SEVERE FLUID RETENTION IN ABDOMEN/LLE History of Present Illness The patient is a 52 year old female who presents to the Emergency Room with complaints of constant bloating beginning two months ago. The patient states that she has been in and out of the hospital since December for cirrhosis due to alcohol consumption and has been experiencing bloating in her abdomen and legs since then. She notes that when she was last in the hospital, her stomach had to be drained twice due to excessive liquid. She reports that her bloating has not improved since she last came into the ED two months ago, and that this is the worst it has been. The patient also notes that she gained 8 pounds the last time she was in the hospital. She reports taking lactulose, rifixamin, spironolactone, and lorazepam for her symptoms, but notes that her PCP instructed her to receive medication by IV since she is unable to take her medication orally. The patient also complains of dizziness, vomiting after taking medication, loose stool, and bruising. She denies any blood in her vomit , blood in her stool, or change to her appetite. The patient reports being sober since November. Pt states she had outpt labs done earlier today. Review of outpatient labs coming the patient show a creatinine of 1.7, sodium of 118, bilirubin 4.2, albumin 3.0. Stable appearing anemia. Source of History: patient Onset: two months ago Position: other (global) Timing: constant Associated Symptoms: + vomiting (after taking medication) Note: she complains of dizziness, loose stools, and bruising she denies any blood in her vomit, blood in her stool, or a change in appetite Review of Systems See HPI for pertinent positives & negatives. A total of 10 systems reviewed and were otherwise negative. Past Medical & Surgical Medical Problems: (1) AC ALCOHOLIC HEPATITIS (2) Cirrhosis with alcoholism (3) Cirrhosis, alcoholic (4) Colitis (5) Decompensated hepatic cirrhosis (6) DEPRESSIVE DISORDER NEC (7) DUODENAL ULCER NOS (8) ESOPHAGEAL REFLUX (9) Esophageal varices (10) H/O ETOH abuse (11) Hyponatremia (12) Syncope and collapse Family History Stroke MOTHER Social History Smoking Status: Current Every Day Smoker Alcohol Use: heavy Drug Use: none, other Marital Status: Housing Status: lives with family Occupation Status: disabled Current/Historical Medications Scheduled Folic Acid (Folic Acid), 1 MG PO QAM Furosemide (Furosemide), 40 MG PO QPM Furosemide (Lasix), 80 MG PO QAM Lactase (Lactaid), 3,000 UNITS PO DAILY Lactic Acid (Ammonium Lactate) (Lac-Hydrin Twelve), 1 APPLN EXT UD Midodrine (Midodrine HCl), 2.5 MG PO TID Multivitamins/Minerals (Mvi With Minerals), 1 TAB PO DAILY Pantoprazole (Protonix), 40 MG PO BID Potassium Chloride (Klor-Con M20), 20 MEQ PO QAM Rifaximin (Xifaxan), 550 MG PO BID Spironolactone (Spironolactone), 25 MG PO BID Thiamine HCl (Vitamin B-1), 100 MG PO Q24H Tramadol (Ultram), 50 MG PO BID Scheduled PRN Lorazepam (Ativan), 0.5 MG PO BID PRN for Anxiety Ondansetron Hcl (Zofran), 4 MG PO UD PRN for Nausea Allergies Coded Allergies: No Known Allergies (Verified , 02/22/17) Physical Exam Vital Signs Date Time Temp Pulse Resp B/P (MAP) Pulse Ox O2 Delivery O2 Flow Rate FiO2 04/09/17 18:01 36.4 97 20 101/57 95 Room Air Physical Exam GENERAL: alert, well appearing, well nourished, appears uncomfortable, non- toxic EYE EXAM: normal conjunctiva, PERRL and EOM's grossly intact OROPHARYNX: no exudate, no erythema, lips, buccal mucosa, and tongue normal and mucous membranes are moist NECK: supple, no nuchal rigidity, no adenopathy, non-tender LUNGS: Clear to auscultation. Normal chest wall mechanics, no W/R/R HEART: no murmurs, S1 normal and S2 normal ABDOMEN: abdomen soft, non-tender, normo-active bowel sounds, no masses, no rebound or guarding, distended, positive fluid wave, BACK: Back is symmetrical on inspection and there is no deformity, no midline tenderness, no CVA tenderness. SKIN: no rashes and no bruising, jaundiced, several areas of ecchymosis on bilateral upper extremities consistent with recent blood draws, multiple diffuse telangiectasias UPPER EXTREMITIES: upper extremities are grossly normal,. normal ROM. LOWER EXTREMITIES: B/L 4+ pitting edema up to level of hips, no evidence of cellulitis, normal ROM. NEURO EXAM: Normal sensorium, cranial nerves II-XII grossly intact, normal speech, no gross weakness of arms, no gross weakness of legs. Medical Decision & Procedures ER Provider Diagnostic Interpretation: Radiology results have been interpreted by the radiologist and reviewed by me. CHEST ONE VIEW PORTABLE HISTORY: Short of breath. COMPARISON: Chest 03/12/2017. FINDINGS: Small left pleural effusion has decreased in size. There are few linear scarlike densities within the left midlung zone. There are low lung volumes. The right lung is clear. The heart is stable in size. No pneumothorax. IMPRESSION: Decrease in size in the small left pleural effusion. Electronically signed by: Michael De Leon M.D. 04/09/2017 8:31 PM Medications Administered Medications (Trade) Dose Ordered Sig/Betty Route Start Time Stop Time Status Last Admin Dose Admin Furosemide (Lasix Inj) 40 mg NOW STAT IV 04/09/17 18:48 04/09/17 18:55 DC 04/09/17 19:29 40 MG ECG Indication: SOB/dyspnea Rate (beats per minute): 86 Rhythm: sinus rhythm Findings: no acute ischemic change, other (normal axis, normal intervals) ED Course 1806: The patient was evaluated in room A3. A complete history and physical exam was performed. 1848: Lasix Inj 40mg IV 1857: Upon reevaluation, the patient is stable. I discussed the findings and the treatment plan with the patient. She expresses agreement and understanding. I spoke with Dr. Haley of the [facility] Hospitalist Service. The patient will be evaluated for further management. Medical Decision Differentials include: worsening complications of cirrhosis, renal failure, CHF , infection, electrolyte and abnormality. Patient with worsening compensations of her chronic alcohol-induced cirrhosis, now with worsening renal function and electrolytes. Worsening hypoalbuminemia, worsening hyperbilirubinemia. Patient is otherwise stable vital signs here, blood pressure borderline low, however chronic related to the patient's condition. EKG, chest x-ray, and PT/INR added. Case discussed with hospitalist for admission and additional evaluation. She has received prior paracentesis and may need consideration for repeat procedure again. Medication Reconcilliation Current Medication List: was personally reviewed by me Blood Pressure Screening Patient's blood pressure: Normal blood pressure Blood pressure disposition: Did not require urgent referral Consults Time Called: 1852 Consulting Physician: Joaquim Verduzco Returned Call: [phone] I reviewed the patient's case with Joaquim Verduzco. She will evaluate the patient for further management. Impression Primary Impression: Anasarca Additional Impressions: Hyponatremia Acute renal failure (ARF) Hypoalbuminemia Alcoholic cirrhosis of liver with ascites Scribe Attestation The scribe's documentation has been prepared under my direction and personally reviewed by me in its entirety. I confirm that the note above accurately reflects all work, treatment, procedures, and medical decision making performed by me. Departure Information Dispostion Being Evaluated By Hospitalist Referrals Stef Hylton D.O. (PCP) Patient Instructions My [facility] Problem Qualifiers Additional Impressions: Acute renal failure (ARF) Acute renal failure type: unspecified Qualified Codes: N17.9 - Acute kidney failure, unspecified
[2017-04-09] MEDS ORDERED: FUROSEMIDE 40 MG/4 ML VIAL IV STA (18:48)
[2017-04-09 19:42] LABS: INR 1.4 (0.9-1.1); PROTHROMBIN TIME (PATIENT) 14.8 SECONDS (9.0-12.0)
[2017-04-09] MEDS ORDERED: ONDANSETRON INJ 2 MG/ML 2 ML VIAL IV PRN (20:00)
[2017-04-09] MEDS ORDERED: LORAZEPAM 0.5 MG TAB PO PRN (20:00)
--- NOTE | 2017-04-09 20:23 | History and Physical ---
History & Physical Date & Time of Service: Apr 09, 2017 at 20:00 Chief Complaint: Severe Fluid Retention In Abdomen/Lle Primary Care Physician: Stef Hylton D.O. History of Present Illness Source: patient, clinic records, hospital records 52 yo alcoholic cirrhotic presents to the ER with weight gain in her abdomen and legs for the past month since leaving the hospital. She reports being out of her medications as of last Wed, which was 6 days ago, and this includes her diuretics. She reports some abdominal discomfort generally with some worsening of abdominal pain located in her LUQ and RLQ area at the point where the distension begins. The pain is worse with changing positions. She was contacted by her PCP, however, to come into the ER because her sodium was found to be 118 on outpatient labwork. She denies any headaches, SOB, chest pain, fevers, chills, nausea, hemoptysis, hematemesis, hematochezia. She reports vomiting twice today but doesn't know why; she states she was still able to eat yogurt and a pizza her brought her, however. She reports her last BM was today and reports not liking the lactulose. ROS also reveals some sore throat and cough that is chronic and only at night. She is still smoking at least 7 cigarettes daily. She maintains that her last drink was December 16, 2016. She was recently admitted 03/12-03/15 for the same presentation of fluid retention and hyponatremia and was admitted in short succession twice before that for again a similar presentation (02/02-02/11 and 02/22-03/01). During her last admission she was placed on IV Lasix BID with fluid restriction and was sent out on Rifaximin as a new medication. Since then, she reports continual fluid gain and ascites. Past Medical/Surgical History Medical Problems: (1) AC ALCOHOLIC HEPATITIS Status: Resolved (2) Cirrhosis with alcoholism Status: Chronic (3) DEPRESSIVE DISORDER NEC Status: Chronic (4) DUODENAL ULCER NOS Status: Chronic (5) ESOPHAGEAL REFLUX Status: Chronic (6) Esophageal varices Status: Chronic (7) H/O ETOH abuse Status: Chronic Family History FH: CAD (coronary artery disease) FATHER Stroke MOTHER Social History Smoking Status: Current Every Day Smoker Smokeless Tobacco Use: No Alcohol Use: none Drug Use: none, other Marital Status: Housing status: lives with significant other Occupational Status: disabled Immunizations History of Influenza Vaccine: Yes Influenza Vaccine Date: Mar 02, 2017 History of Tetanus Vaccine?: Yes Tetanus Immunization Date: Jun 28, 2015 History of Pneumococcal: Yes Pneumococcal Date: Nov 23, 2009 History of Hepatitis B Vaccine: Yes Hepatitis Immunization Date: Apr 11, 2012 Multi-Drug Resistant Organisms History of MDRO: No Allergies Coded Allergies: No Known Allergies (Verified , 02/22/17) Home Medications Scheduled Folic Acid (Folic Acid), 1 MG PO QAM Furosemide (Furosemide), 40 MG PO QPM Furosemide (Lasix), 80 MG PO QAM Lactase (Lactaid), 3,000 UNITS PO DAILY Lactic Acid (Ammonium Lactate) (Lac-Hydrin Twelve), 1 APPLN EXT UD Midodrine (Midodrine HCl), 2.5 MG PO TID Multivitamins/Minerals (Mvi With Minerals), 1 TAB PO DAILY Pantoprazole (Protonix), 40 MG PO BID Potassium Chloride (Klor-Con M20), 20 MEQ PO QAM Rifaximin (Xifaxan), 550 MG PO BID Spironolactone (Spironolactone), 25 MG PO BID Thiamine HCl (Vitamin B-1), 100 MG PO Q24H Tramadol (Ultram), 50 MG PO BID Scheduled PRN Lorazepam (Ativan), 0.5 MG PO BID PRN for Anxiety Ondansetron Hcl (Zofran), 4 MG PO UD PRN for Nausea Review of Systems At least ten systems were reviewed and negative except as indicated in HPI. Physical Exam Vital Signs Date Time Temp Pulse Resp B/P (MAP) Pulse Ox O2 Delivery O2 Flow Rate FiO2 04/09/17 18:01 36.4 97 20 101/57 95 Room Air General Appearance: no apparent distress, + obese Head: normocephalic, atraumatic Eyes: normal inspection, PERRL, EOMI, + abnormal sclerae exam (scleral icterus) ENT: hearing grossly normal, pharynx normal Neck: supple, no JVD, trachea midline, + pertinent finding (telangiectasias on anterior chest and neck) Respiratory/Chest: lungs clear, normal breath sounds, no respiratory distress, no accessory muscle use Cardiovascular: regular rate, rhythm, no gallop, no murmur, normal peripheral pulses, + pertinent finding (diffuse 3+ pitting edema bilateral LEs to groin) Abdomen/GI: normal bowel sounds, non tender, soft, + pertinent finding ( protuberant abdomen with positive fluid wave but no TTP on exam. ) Back: normal inspection Extremities/Musculoskelatal: normal range of motion, + pedal edema, + swelling Neurologic/Psych: talent advisor II-XII nml as tested, no motor/sensory deficits, alert, normal mood/affect, oriented x 3 Skin: + jaundice, + pertinent finding (telangiectasias as above. ) Diagnostics Laboratory Results Test 04/09/17 19:09 04/09/17 19:25 Prothrombin Time 14.8 SECONDS (9.0-12.0) Prothromb Time International Ratio 1.4 (0.9-1.1) Results Past 24 Hours Test 04/09/17 19:09 04/09/17 19:25 Range/Units Prothrombin Time 14.8 9.0-12.0 SECONDS Prothromb Time International Ratio 1.4 0.9-1.1 Diagnostic Radiology CXR-pending Normal EKG Impression Assessment and Plan 52 yo F with alcoholic cirrhosis presents with increased fluid retention 2/2 decompensated cirrhosis 2/2 noncompliance with diuretics. 1. Hypervolemic hyponatremia 2/2 low effective arterial volume in setting of cirrhosis with fluid accumulation--fluid restriction, Lasix 40 IV BID with first dose given in ER. Malloy in place. Nephro consulted to assist with management. Monitor Na overnight and in am. Fluid restrict to 1.5L. 2. Decompensated cirrhosis-Weight gain over the past month. Pt reports running out of diuretics one week ago. Reports compliance with her fluid restriction at home and a low salt diet. No concerning features of SBP with nontender abdomen on exam and no reports of fevers or chills. She is not encephalopathic with a known h/o portal hypertension with a h/o variceal banding of varices. Cont aldactone at current home dose of 25mg PO BID and Lasix 40 IV BID. GI consulted. 3. h/o ETOH abuse-maintains her abstinence since December 16 of this year. 4. GERD and h/o bleeding esophageal varices-cont Protonix BID per home regimen. 5. 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 Monitor. 6. TRACY-likely related to low EAV. Diuretics as above. Repeat PRP. DVT proph-Heparin Full Code Dispo-telemetry DO [facility] Level [facility] Care Telemetry Resuscitation Status FULL RESUSCITATION VTE Prophylaxis VTE Risk Assessment Done? Y/N: Yes Risk Level: Moderate Given or contraindicated: Unfractionated heparin SQ, T.E.D. Stockings
[2017-04-09 20:30] VITALS: BP 107/61; PULSE 85; TEMP 36.7; O2SAT 97
--- NOTE | 2017-04-09 20:32 | DIAGNOSTIC IMAGING REPORT ---
CHEST ONE VIEW PORTABLE HISTORY: Short of breath. COMPARISON: Chest 03/12/2017. FINDINGS: Small left pleural effusion has decreased in size. There are few linear scarlike densities within the left midlung zone. There are low lung volumes. The right lung is clear. The heart is stable in size. No pneumothorax. IMPRESSION: Decrease in size in the small left pleural effusion. Electronically signed by: Michael De Leon M.D. 04/09/2017 8:31 PM Dictated Date/Time: 04/09/2017 8:30 PM
[2017-04-09 20:33] LABS: URINE APPEARANCE CLEAR (CLEAR); URINE BILIRUBIN NEG (NEG); URINE COLOR DK YELLOW; URINE NITRITE NEG (NEG); URINE SPECIFIC GRAVITY 1.018 (1.000-1.030); UROBILINOGEN NEG (NEG); ZZUR CULT IF INDIC CLEAN CATCH NO
[2017-04-09 20:41] LABS: MANUAL MICROSCOPIC REQUIRED? NO; REVIEW REQ? NO
[2017-04-09 20:51] LABS: CREATININE RANDOM URINE 98.2 mg/dl
[2017-04-09 21:00] VITALS: BP 107/61; PULSE 85; TEMP 36.7; O2SAT 97; Ht 165.1 cm; Wt 91.1 kg
[2017-04-09] MEDS ORDERED: THIAMINE HCL 100 MG TAB PO SCH (21:00)
[2017-04-09] MEDS: HEPARIN SOD 5000 UNIT/0.5 ML CARP SQ SCH (21:35)
[2017-04-09] MEDS: TRAMADOL HCL 50 MG TAB PO PRN (21:39)
[2017-04-09] MEDS: SPIRONOLACTONE 25 MG TAB PO SCH (21:40)
[2017-04-09] MEDS: PANTOprazole SOD 40 MG TAB PO SCH (21:42)
[2017-04-09] MEDS: RIFAXIMIN TAB 550 MG TAB PO SCH (21:44)
[2017-04-09 22:00] LABS: BUN/CREATININE RATIO 13.6 (10-20); CALCIUM 8.9 mg/dl (8.5-10.1); CREATININE 1.76 mg/dl (0.60-1.20); MAGNESIUM 2.2 mg/dl (1.8-2.4); POTASSIUM 4.4 mmol/L (3.5-5.1); THYROID STIMULATING HORMONE 1.12 uIu/ml (0.300-4.500)
[2017-04-09 23:32] VITALS: BP 95/55; PULSE 90; TEMP 36.6; O2SAT 95
[2017-04-09 23:58] LABS: BUN/CREATININE RATIO 14.4 (10-20); CALCIUM 8.8 mg/dl (8.5-10.1); CREATININE 1.7 mg/dl (0.60-1.20); POTASSIUM 4.5 mmol/L (3.5-5.1)
[2017-04-10] VITALS (9 sets, daily range): BP systolic 89–106; BP diastolic 48–65; PULSE 73–91; TEMP 36.5–36.8; O2SAT 94–97
[2017-04-10 05:25] LABS: HEMATOCRIT 24.6 % (37-47); MEAN CELL VOLUME 86.9 fL (80-100); MEAN CORPUSCULAR HEMOGLOBIN 31.1 pg (25-34); MEAN CORPUSCULAR HGB CONC 35.8 g/dl (32-36); MEAN PLATELET VOLUME 9.9 fL (7.4-10.4); PLATELET COUNT 194 K/uL (130-400); RED BLOOD COUNT 2.83 M/uL (4.2-5.4); WHITE BLOOD COUNT 6.33 K/uL (4.8-10.8)
[2017-04-10 06:20] LABS: BUN/CREATININE RATIO 13.5 (10-20); CALCIUM 8.6 mg/dl (8.5-10.1); CREATININE 1.91 mg/dl (0.60-1.20)
[2017-04-10] MEDS: HEPARIN SOD 5000 UNIT/0.5 ML CARP SQ SCH (06:28)
[2017-04-10] MEDS ORDERED: MIDODRINE 2.5 MG TAB PO SCH ×2 (08:00→12:00)
[2017-04-10] MEDS: RIFAXIMIN TAB 550 MG TAB PO SCH (08:04)
[2017-04-10] MEDS: PANTOprazole SOD 40 MG TAB PO SCH (08:04)
[2017-04-10] MEDS: SPIRONOLACTONE 25 MG TAB PO SCH (08:50)
[2017-04-10] MEDS: TRAMADOL HCL 50 MG TAB PO PRN ×2 (08:51→18:57)
[2017-04-10] MEDS ORDERED: FUROSEMIDE INJ 40 MG in SYRINGE 0 ML IV SCH (09:00)
[2017-04-10] MEDS ORDERED: POTASSIUM CHLORIDE 20 MEQ TABCR PO SCH (09:00)
[2017-04-10] MEDS ORDERED: CEROVITE ADV FORMULA TAB PO SCH (09:00)
[2017-04-10] MEDS ORDERED: NICOTINE 21 MG/24 HR TDSY TD SCH (09:00)
--- NOTE | 2017-04-10 09:56 | NEPHROLOGY CONSULTATION ---
DATE OF CONSULTATION: 04/10/2017 ATTENDING OF RECORD: Dr. Haley. REASON FOR CONSULTATION: Volume overload and hyponatremia. HISTORY OF PRESENT ILLNESS: This is a 52-year-old alcoholic cirrhotic who was recently in the hospital from March 12 to March 15 for volume overload and hyponatremia as well as previously admitted in January as well as beginning in February, so this is her fourth admission in the past 2 months with volume overload and hyponatremia. The patient's swelling continues to worsen despite outpatient diuretics. The patient found to have low sodium of 120 and started on Lasix 40 IV b.i.d. as well as a free water restriction. The patient's creatinine also around 1.7 and it trended up to 1.91, the last sodium of 119. REVIEW OF SYSTEMS: The patient with significant swelling, associated fatigue, early satiety, difficulty with ambulation and abdominal distention. No chest pain, no shortness of breath. No itching, no blurry vision, no dysphagia, no headaches, no fevers or chills. All other review of systems otherwise negative. PAST MEDICAL HISTORY: Cirrhosis secondary to alcohol, hyponatremia secondary to volume overload, esophageal varices, GERD, depression. PAST SURGICAL HISTORY: None. FAMILY HISTORY: Mother with stroke. SOCIAL HISTORY: Active smoker, last alcoholic drink on December 16. No drugs. Lives at home. CURRENT MEDICATIONS: Midodrine 2.5 mg p.o. t.i.d., Nicoderm patch daily, folic acid 1 mg daily, multivitamin daily, potassium 20 mEq daily, Lasix 40 IV b.i.d., heparin 5000 units subQ q. 8, Protonix 40 mg p.o. b.i.d., rifaximin 550 mg p.o. b.i.d., spironolactone 25 mg p.o. b.i.d., thiamine 100 mg at night. PHYSICAL EXAMINATION: VITAL SIGNS: Temperature 36.6, pulse 90, respiratory rate 16, blood pressure 91/49, satting 95% on room air. GENERAL: Awake, alert, oriented x3. EYES: Positive scleral icterus. HENT: Moist mucous membranes. NECK: Supple. PULMONARY: Clear to auscultation. CARDIAC: Regular rate and rhythm. ABDOMEN: Significantly distended. EXTREMITIES: +2 to 3 pitting edema. NEUROLOGIC: Nonfocal. DERMATOLOGIC: Positive jaundice. LABORATORY DATA: White count 6, H&H 8.8 and 24.6, and platelet count 194. Sodium was 119, potassium is 5, chloride is 88, bicarbonate is 22, BUN is 26, creatinine is 1.91, glucose 79, calcium is 8.6. Ammonia level is 35. TSH 1.12. INR is 1.4. Urinalysis is 265. Urine random sodium was 6. Previous creatinines have always been relatively normal 0.9-1. Creatinine now up to 1.7 and trending up to 1.91. IMAGING DATA: Chest x-ray shows a decrease in size a small left pleural effusion. IMPRESSION AND PLAN: 1. Acute kidney injury, nonoliguric in the setting of liver cirrhosis with random urine sodium less than 10 with a creatinine trending up with worsening volume overload. The patient may have hepatorenal syndrome. I would like to start octreotide and increase the dose of midodrine and give albumin. The patient though is fluid overloaded and mostly third spacing the fluid. 2. Hyponatremia secondary to volume overload and on Lasix 40 IV b.i.d. The patient likely with hepatorenal syndrome. Unfortunately, as we give the patient albumin , the patient may reabsorb the extra fluid worsening hyponatremia, so must be careful to give albumin, but continue to try to help improve the sodium levels at the same time through diuresis. 3. Overall, poor prognosis given this significant hepatorenal syndrome and concomitant hyponatremia with worsening volume overload. Thankfully, the patient is alert and lungs are clear with just a small pleural effusion; however, concerned if kidney function continues to worsen and already third space fluid with low sodium that the patient may need dialysis during this admission if her sodium levels continue to worsen and kidney function continues to trend upward. We may also consider transfer to [place] for a transplant evaluation and possible tips given the worsening kidney function and low sodium levels. The patient's MELD score may be elevated; however, we will respectfully defer to GI. I appreciate consultation. CAROL
[2017-04-10] MEDS: OCTREOTIDE ACETATE 100 MCG/ML VIAL SQ SCH ×2 (10:26→16:09)
--- NOTE | 2017-04-10 10:44 | Gastrointestinal Consultation ---
Gastrointestinal Consultation Date of Consultation: Apr 10, 2017 Attending Physician: Dr. Haley Consulting Physician: Dr. Colón Reason for Consultation: decompensated cirrhosis with worsening ascites History of Present Illness Patient is a 52 year old female patient of Dr. Hylton with a history of alcoholic cirrhosis having abstained since December 2016. She presented to the emergency room yesterday for worsening ascites and peripheral edema. On arrival , she had marked hyponatremia with sodium 120, today it is 119. INR is 1.4, urine sodium 6, creatinine was 1.6 on arrival and is 1.9 today. Bili not yet measured but she does not appear jaundiced. . This morning, she is seen and examined while she was initially sleeping and was easily awakened and then was alert and oriented. She verbalizes frustration regarding her increasing peripheral edema. She tells me that for a week, she has not been able to stand up because her legs "hurt too much." She denies any intake of any salt, telling me that her does all the cooking and does not allow any salt. The H&P mentions that she had not taken diuretics in the last 6 days. This morning, she adamantly denies missing any doses of any diuretics. She reviews that she takes Lasix and spironolactone BID and that her spironolactone dosage was decreased the last time she was hospitalized. She had been hospitalized for fluid overload twice in the past two months as well as this admission. She tells me that the reason why she was admitted is because Dr. Hylton had ordered labs and on review of the results, instructed that she come immediately to the hospital. She denies any blood in her stools, black tarry stools, nausea /vomiting or confusion. Though no imaging of the liver during this admission, there was a liver US on with cirrhosis w/o focal lesion, +ascites. She also underwent non-contrast CT on 02/02/17 with gallstones, cirrhosis, no focal lesions. Past Medical/Surgical History Medical Problems: (1) Abdominal pain Status: Acute (2) Abdominal pain, left upper quadrant Status: Acute (3) Acute renal failure (ARF) Status: Acute (4) Alcoholic cirrhosis of liver with ascites Status: Acute (5) Anasarca Status: Acute (6) Ascites Status: Acute (7) Cirrhosis Status: Acute (8) Diarrhea Status: Acute (9) GI bleed Status: Acute (10) Hypoalbuminemia Status: Acute (11) Hypokalemia Status: Acute (12) Hyponatremia Status: Acute (13) Hyponatremia Status: Acute (14) Hyponatremia Status: Acute (15) Liver failure Status: Acute (16) Syncope Status: Acute Past Medical History: 1. Alcoholic cirrhosis complicated by ascites prior hepatic encephalopathy, esophageal varices S/P banding. 2. Depression. 3. Hyponatremia. 4. Iron deficiency anemia. Past Surgical History: 1. 2. Most recent EGD 01/16/[address] Funk: grade 2 esophageal varices in the lower one third of the esophagus, moderate portal hypertension. Family History FH: CAD (coronary artery disease) FATHER Stroke MOTHER Social History Smoking Status: Current Every Day Smoker Alcohol Use: heavy Drug Use: none, other Marital Status: Housing Status: lives with family Occupation Status: disabled Allergies Coded Allergies: No Known Allergies (Verified , 02/22/17) Current Medications Home Meds and Scripts Medications Dose Route/Sig Max Daily Dose Days Date Category Ultram (Tramadol HCl) 50 Mg Tab 50 Mg PO BID 04/09/17 Reported Zofran (Ondansetron HCl) 4 Mg Tab 4 Mg PO UD PRN 04/09/17 Reported Midodrine HCl (Midodrine) 2.5 Mg Tab 2.5 Mg PO TID 04/09/17 Reported Lasix (Furosemide) 80 Mg Tab 80 Mg PO QAM 04/09/17 Reported Lactaid (Lactase) 3,000 Unit Tab 3,000 Units PO DAILY 04/09/17 Reported Xifaxan (Rifaximin) 550 Mg Tab 550 Mg PO BID 30 03/15/17 Rx Spironolactone 25 Mg Tab 25 Mg PO BID 03/12/17 Rx Furosemide 40 Mg Tab 40 Mg PO QPM 03/12/17 Reported Klor-Con M20 (Potassium Chloride) 20 Meq Tabcr 20 Meq PO QAM 30 03/01/17 Rx Folic Acid 1 Mg Tab 1 Mg PO QAM 30 03/01/17 Rx Lac-Hydrin Twelve (Lactic Acid (Ammonium Lactate)) 12 % Lot 1 Appln EXT UD 03/01/17 Rx Mvi With Minerals (Multivitamins/Minerals) Tab 1 Tab PO DAILY 30 02/11/17 Rx Vitamin B-1 (Thiamine HCl) 100 Mg Tab 100 Mg PO Q24H 02/11/17 Rx Protonix (Pantoprazole Sodium) 40 Mg Tab 40 Mg PO BID 11/19/12 Reported Ativan (Lorazepam) 0.5 Mg Tab 0.5 Mg PO BID PRN 02/16/12 Reported Review of Systems Constitutional: + weakness (mild), No fever, No chills, No sweats, No weight loss Eyes: No eye pain, No redness ENT: No sore throat, No trouble swallowing, No pain on swallowing Respiratory: No cough, No wheezing, No shortness of breath, No dyspnea on exertion Cardiac: No chest pain, No edema, No palpitations Abdomen: + see HPI, + pain (from very large abdomen and fluid retention in legs ), No nausea, No vomiting, No diarrhea, No constipation, No GI bleeding, No dysphagia, No odynophagia, No jaundice Neuro: No memory loss, No weakness, No numbness/tingling, No vertigo, No balance problems Psych: No depression symptoms, No anxiety, No insomnia Heme: No abnormal bleeding/bruising, No night sweats Endo: No excessive thirst, No excessive urination Skin: No rash, No itch, No new/changing skin lesions, No jaundice Physical Exam Date Time Temp Pulse Resp B/P (MAP) Pulse Ox O2 Delivery O2 Flow Rate FiO2 04/10/17 08:00 Room Air 04/10/17 07:29 36.6 90 16 91/49 (63) 95 Room Air 04/10/17 04:16 36.7 91 20 89/48 (62) 94 Room Air 04/10/17 04:00 Room Air 04/10/17 00:00 Room Air 04/09/17 23:32 36.6 90 20 95/55 (68) 95 Room Air 04/09/17 21:00 36.7 85 18 107/61 97 Room Air 04/09/17 20:30 36.7 85 18 107/61 (76) 97 Room Air 04/09/17 20:15 88 24 101/48 99 04/09/17 18:01 36.4 97 20 101/57 95 Room Air General Appearance: no apparent distress Eyes: normal inspection, EOMI Neck: supple, no adenopathy, thyroid normal, no JVD Respiratory/Chest: chest non-tender, lungs clear, normal breath sounds, no accessory muscle use Cardiovascular: regular rate, rhythm, no JVD, no murmur Abdomen: normal bowel sounds, no organomegaly, + tenderness (mildly, diffusely) , + pertinent finding (large ascites, moderately taunt) Extremities: normal inspection, normal capillary refill, + swelling (2+ pitting edema to the knees, 1+ above the knees to the mid thighs.) Neurologic/Psych: alert, normal mood/affect, oriented x 3 Skin: normal color, no jaundice, warm/dry, no rash Laboratory Results Last 24 Hours Test 04/09/17 19:25 04/09/17 19:52 04/09/17 20:45 04/09/17 23:28 Prothrombin Time 14.8 SECONDS Prothromb Time International Ratio 1.4 Urine Color DK YELLOW Urine Appearance CLEAR Urine pH 5.0 Urine Specific [place] 1.018 Urine Protein NEG Urine Glucose (UA) NEG Urine Ketones NEG Urine Occult Blood NEG Urine Nitrite NEG Urine Bilirubin NEG Urine Urobilinogen NEG Urine Leukocyte Esterase NEG Urine Osmolality 265 mOms/kg Urine Random Creatinine 98.2 mg/dl Urine Random Sodium 6 mEq/L Urine Random Urea Nitrogen 345 mg/dl Sodium Level 120 mmol/L 119 mmol/L Potassium Level 4.4 mmol/L 4.5 mmol/L Chloride Level 88 mmol/L 88 mmol/L Carbon Dioxide Level 23 mmol/L 23 mmol/L Anion Gap 9.0 mmol/L 9.0 mmol/L Blood Urea Nitrogen 24 mg/dl 24 mg/dl Creatinine 1.76 mg/dl 1.70 mg/dl Est Creatinine Clear Calc Drug Dose 41.0 ml/min 42.4 ml/min Estimated GFR () 37.3 38.9 Estimated GFR (Non- 32.2 33.6 BUN/Creatinine Ratio 13.6 14.4 Random Glucose 106 mg/dl 98 mg/dl Osmolality 254 mOsm/kg Calcium Level 8.9 mg/dl 8.8 mg/dl Magnesium Level 2.2 mg/dl Thyroid Stimulating Hormone (TSH) 1.120 uIu/ml Test 04/10/17 05:04 White Blood Count 6.33 K/uL Red Blood Count 2.83 M/uL Hemoglobin 8.8 g/dL Hematocrit 24.6 % Mean Corpuscular Volume 86.9 fL Mean Corpuscular Hemoglobin 31.1 pg Mean Corpuscular Hemoglobin Concent 35.8 g/dl RDW Standard Deviation 48.4 fL RDW Coefficient of Variation 15.1 % Platelet Count 194 K/uL Mean Platelet Volume 9.9 fL Sodium Level 119 mmol/L Potassium Level 5.0 mmol/L Chloride Level 88 mmol/L Carbon Dioxide Level 22 mmol/L Anion Gap 9.0 mmol/L Blood Urea Nitrogen 26 mg/dl Creatinine 1.91 mg/dl Est Creatinine Clear Calc Drug Dose 37.7 ml/min Estimated GFR () 33.8 Estimated GFR (Non- 29.2 BUN/Creatinine Ratio 13.5 Random Glucose 79 mg/dl Calcium Level 8.6 mg/dl Ammonia 35.0 umol/L Impression Patient is a 52 year old female with alcoholic cirrhosis having abstained for the last 3 months, now in fluid overload. Because her history is inconsistent where unsure if she has missed any doses of the diuretics. She is now with hyponatremia low urine sodium, suggestive of HRS. Plan Discussed with nephrology - concerned about increasing Cr, low urine sodium, developing HRS and suggests considering transfer to [place]. Talked with Dr. Colón who agrees based on Dr. Horan's recommendation. Then, discussed with Dr. Keys who will initiate transfer request. I have seen , examined and agree with the plan as outlined by WILBERT Velarde as above. -nephrology is appropriately concerned of status, planning transfer to [facility]
[2017-04-10] MEDS: MIDODRINE 2.5 MG TAB PO SCH ×2 (11:56→16:09)
--- NOTE | 2017-04-10 13:56 | Progress Note ---
Medicine Progress Note Date & Time of Visit: Apr 10, 2017 at 13:49. Subjective seen resting in bed, comfortable alert, oriented x 3 states she feels ok overall, reports swelling of her legs and distention of her abdomen denies dyspnea, chest pain, dizziness, nausea, headache no other symptoms Objective Last 8 Hrs Date Time Temp Pulse Resp B/P (MAP) Pulse Ox O2 Delivery O2 Flow Rate FiO2 04/10/17 12:00 Room Air 04/10/17 11:17 36.5 77 16 104/61 (75) 96 Room Air 04/10/17 10:44 76 102/60 (74) 04/10/17 08:00 Room Air 04/10/17 07:29 36.6 90 16 91/49 (63) 95 Room Air Physical Exam: General- oriented x 3, not in distress, speaks in sentences with no effort Head- atraumatic Eyes- PERRL, EOMI, (+) mild icterus ENT- oropharynx clear Neck- supple, no JVD, no adenopathy, no thyromegaly Lungs- clear breath sounds bilaterally, no rales/wheezes Heart- regular rhythm; no murmur, normal rate Abdomen- normal bowel sounds, (+) distention, soft, nontender Extremities- grade 1-2 lower leg edema, no calf tenderness Neuro- alert, oriented x 3; no gross focal deficits Skin- warm & dry Laboratory Results: Last 24 Hours Test 04/09/17 19:25 04/09/17 19:52 04/09/17 20:45 04/09/17 23:28 Prothrombin Time 14.8 SECONDS Prothromb Time International Ratio 1.4 Urine Color DK YELLOW Urine Appearance CLEAR Urine pH 5.0 Urine Specific [place] 1.018 Urine Protein NEG Urine Glucose (UA) NEG Urine Ketones NEG Urine Occult Blood NEG Urine Nitrite NEG Urine Bilirubin NEG Urine Urobilinogen NEG Urine Leukocyte Esterase NEG Urine Osmolality 265 mOms/kg Urine Random Creatinine 98.2 mg/dl Urine Random Sodium 6 mEq/L Urine Random Urea Nitrogen 345 mg/dl Sodium Level 120 mmol/L 119 mmol/L Potassium Level 4.4 mmol/L 4.5 mmol/L Chloride Level 88 mmol/L 88 mmol/L Carbon Dioxide Level 23 mmol/L 23 mmol/L Anion Gap 9.0 mmol/L 9.0 mmol/L Blood Urea Nitrogen 24 mg/dl 24 mg/dl Creatinine 1.76 mg/dl 1.70 mg/dl Est Creatinine Clear Calc Drug Dose 41.0 ml/min 42.4 ml/min Estimated GFR () 37.3 38.9 Estimated GFR (Non- 32.2 33.6 BUN/Creatinine Ratio 13.6 14.4 Random Glucose 106 mg/dl 98 mg/dl Osmolality 254 mOsm/kg Calcium Level 8.9 mg/dl 8.8 mg/dl Magnesium Level 2.2 mg/dl Thyroid Stimulating Hormone (TSH) 1.120 uIu/ml Test 04/10/17 05:04 White Blood Count 6.33 K/uL Red Blood Count 2.83 M/uL Hemoglobin 8.8 g/dL Hematocrit 24.6 % Mean Corpuscular Volume 86.9 fL Mean Corpuscular Hemoglobin 31.1 pg Mean Corpuscular Hemoglobin Concent 35.8 g/dl RDW Standard Deviation 48.4 fL RDW Coefficient of Variation 15.1 % Platelet Count 194 K/uL Mean Platelet Volume 9.9 fL Sodium Level 119 mmol/L Potassium Level 5.0 mmol/L Chloride Level 88 mmol/L Carbon Dioxide Level 22 mmol/L Anion Gap 9.0 mmol/L Blood Urea Nitrogen 26 mg/dl Creatinine 1.91 mg/dl Est Creatinine Clear Calc Drug Dose 37.7 ml/min Estimated GFR () 33.8 Estimated GFR (Non- 29.2 BUN/Creatinine Ratio 13.5 Random Glucose 79 mg/dl Calcium Level 8.6 mg/dl Total Bilirubin 3.5 mg/dl Direct Bilirubin 2.4 mg/dl Aspartate Amino Transf (AST/SGOT) 50 U/L Alanine Aminotransferase (ALT/SGPT) 21 U/L Alkaline Phosphatase 202 U/L Ammonia 35.0 umol/L Total Protein 6.1 gm/dl Albumin 2.6 gm/dl Assessment & Plan 52 yo F with alcoholic cirrhosis presents with increased fluid retention 2/2 decompensated cirrhosis 2/2 noncompliance with diuretics. 1. Hypervolemic hyponatremia 2/2 low effective arterial volume in setting of cirrhosis with fluid accumulation Possible Hepatorenal Syndrome - Na 120-->119 Crea 0.8 (last month) --> 1.9 currently on Lasix 40mg IV, usual Aldactone BP marginal systolic 90s Nephrology consulted recommend transfer to [facility] for tertiary level of care 2. Decompensated cirrhosis - this is the patient's 4th admission since December - Weight gain over the past month. Pt reports running out of diuretics one week ago, but today reports she was taking them regularly. Reports compliance with her fluid restriction at home and a low salt diet. - Tot bili 3.5 Inr 1.4 - GI consulted recommend transfer to [facility] given marginal BP, hyponatremia of 119, elevated crea of 1.9 from baseline 0.[address] Howard, [facility] hospitalist who kindly accepted the patient 3. h/o ETOH abuse-maintains her abstinence since December 16 of this year. 4. GERD and h/o bleeding esophageal varices-cont Protonix BID per home regimen . 5. 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 Monitor. Full Code Dispo-telemetry case discussed with patient and her she is agreeable and understanding of plan of care Current Inpatient Medications: Current Inpatient Medications Medications (Trade) Dose Ordered Sig/Betty Route Start Time Stop Time Status Last Admin Dose Admin Heparin Sodium (Porcine) (Heparin Sq 5000 Unit/0.5ml) 5,000 unit Q8 SQ 04/09/17 22:00 05/09/17 21:59 04/10/17 06:28 5,000 UNIT Ondansetron HCl (Zofran Inj) 4 mg Q6H PRN IV 04/09/17 20:00 05/09/17 19:59 Nicotine (Nicoderm Cq 21MG Patch) 1 patch QAM TD 04/10/17 09:00 05/10/17 08:59 04/10/17 08:05 1 PATCH Miscellaneous (Remove Nicoderm Patch) 1 ea HS N/A 04/09/17 21:00 05/09/17 20:59 Folic Acid (Folvite Tab) 1 mg QAM PO 04/10/17 09:00 05/10/17 08:59 04/10/17 08:04 1 MG Lorazepam (Ativan Tab) 0.5 mg BID PRN PO 04/09/17 20:00 05/09/17 19:59 04/09/17 21:38 0.5 MG Multivitamins/ Minerals (Multivitamin W/ Minerals Tab) 1 tab DAILY PO 04/10/17 09:00 05/10/17 08:59 04/10/17 08:04 1 TAB Pantoprazole Sodium (Protonix Tab) 40 mg BID PO 04/09/17 21:00 05/09/17 20:59 04/10/17 08:04 40 MG Rifaximin (Xifaxan Tab) 550 mg BID PO 04/09/17 21:00 05/09/17 20:59 04/10/17 08:04 550 MG Spironolactone (Aldactone Tab) 25 mg BID PO 04/09/17 21:00 05/09/17 20:59 04/10/17 08:50 25 MG Thiamine HCl (Vitamin B-1 Tab) 100 mg HS PO 04/09/17 21:00 05/09/17 20:59 04/09/17 21:43 100 MG Tramadol HCl (Ultram Tab) 50 mg BID PRN PO 04/09/17 20:00 05/09/17 19:59 04/10/17 08:51 50 MG Furosemide 40 mg/ Syringe 4 ml @ 4 mls/min BID IV 04/10/17 09:00 05/10/17 08:59 04/10/17 08:50 4 MLS/MIN Octreotide Acetate (Sandostatin Inj) 100 mcg Q8@0600,1400,2200 SQ 04/10/17 10:00 05/10/17 09:59 04/10/17 10:26 100 MCG Midodrine (Proamatine Tab) 7.5 mg TID@0800,1200,1600 PO 04/10/17 12:00 05/10/17 07:59 04/10/17 11:56 7.5 MG Albumin Human (Albumin 25%) 12.5 gm TID IV 04/10/17 14:00 04/13/17 13:59
[2017-04-10] MEDS ORDERED: TRAM-10 PO (13:58)
[2017-04-10] MEDS ORDERED: NICO21DI4 TD (13:58)
[2017-04-10] MEDS ORDERED: PRMT25 PO (13:58)
[2017-04-10] MEDS ORDERED: SNDI SQ (13:58)
[2017-04-10] MEDS ORDERED: ALBUMIN HUMAN 25% 12.5 GM/50 ML VIAL IV SCH (14:00)
--- NOTE | 2017-04-10 14:01 | Discharge Instructions ---
Discharge Instructions Date of Service Apr 10, 2017. Admission Reason for Admission: Hyponatremia Discharge Discharge Diagnosis / Problem: ACUTE DECOMPENSATED LIVER CIRRHOSIS, HYPONATREMIA, POSSIBL HEPATORENAL SYND Discharge Goals Goal(s): Diagnostic testing, Therapeutic intervention Activity Recommendations Activity Level: Bedrest . Additional Information Patient informed of condition: Yes Advance Directives: No (UNKNOWN) DNR: No (PATIENT IS FULL CODE) Level of Care: Other ([facility]) Communicable Disease: No Prognosis: Other (GUARDED) Malloy Catheter: Yes Instructions / Follow-Up Instructions / Follow-Up PLEASE REFER TO ACCOMPANYING HOSPITAL DISCHARGE SUMMARY FOR FURTHER DETAILS. PLEASE REFER TO SEPARATE MEDICAL RECONCILIATION SHEET FOR UPDATED INPATIENT MEDICATION LIST. Current Hospital Diet Patient's current hospital diet: Low Sodium Diet (2gm Na) Discharge Diet Recommended Diet: Low Sodium Diet (2gm Na) Fluid Restriction: 1500 ml (6 cups) Pending Studies Studies pending at discharge: yes List of pending studies: FURTHER EVALUATION AND MANAGEMENT PER [facility] Physician Orders On Transfer Special Precautions: PLEASE REFER TO ACCOMPANYING HOSPITAL DISCHARGE SUMMARY FOR FURTHER DETAILS. PLEASE REFER TO SEPARATE MEDICAL RECONCILIATION SHEET FOR UPDATED INPATIENT MEDICATION LIST. Medical Emergencies . Who to Call and When: Medical Emergencies: If at any time you feel your situation is an emergency, please call 911 immediately. . Non-Emergent Contact Non-Emergency issues call your: Primary Care Provider Call Non-Emergent contact if: you have a fever, your pain is not controlled, your pain is worsening, you have any medication questions . . "Provider Documentation" section prepared by Denis Keys. . Core Measure Problem Core Measures: None
--- NOTE | 2017-04-10 14:06 | Discharge Summary ---
Discharge Summary Date of Service Apr 10, 2017. Discharge Summary Admission Date: Apr 09, 2017 at 19:03 Discharge Date: Apr 10, 2017 Discharge Disposition: Acute care facility Principal Diagnosis: Decompensated Alcoholic Liver Cirrhosis Secondary Diagnoses/Problems: Please refer to hospital course below. Procedures: CHEST ONE VIEW PORTABLE HISTORY: Short of breath. COMPARISON: Chest 03/12/2017. FINDINGS: Small left pleural effusion has decreased in size. There are few linear scarlike densities within the left midlung zone. There are low lung volumes. The right lung is clear. The heart is stable in size. No pneumothorax. IMPRESSION: Decrease in size in the small left pleural effusion. Consultations: GI Dr. Colón, Nephro Dr. Horan Pending Studies/Follow-Up: Please refer to hospital course below. PLEASE REFER TO SEPARATE MEDICAL RECONCILIATION SHEET FOR UPDATED INPATIENT MEDICATION LIST. Medication Reconciliation New Medications: Midodrine (Midodrine HCl) 2.5 Mg Tab 7.5 MG PO TID@0800,1200,1600 for 30 Days, TAB Nicotine (Nicoderm Cq) 21 Mg/24 Hr Dis 1 PATCH TD QAM for 30 Days Octreotide Acetate (Octreotide Acetate) 100 Mcg/Ml Inj 100 MCG SQ Q8@0600,1400,2200 for 5 Days Changed Medications: Tramadol (Ultram) 50 Mg Tab 50 MG PO BID PRN for Pain for 10 Days (Medication details modified) Continued Medications: Folic Acid (Folic Acid) 1 Mg Tab 1 MG PO QAM for 30 Days, #30 TAB Lactase (Lactaid) 3,000 Unit Tab 3000 UNITS PO DAILY Lorazepam (Ativan) 0.5 Mg Tab 0.5 MG PO BID PRN for Anxiety Multivitamins/Minerals (Mvi With Minerals) Tab 1 TAB PO DAILY for 30 Days, TAB 2 Refills Pantoprazole (Protonix) 40 Mg Tab 40 MG PO BID Rifaximin (Xifaxan) 550 Mg Tab 550 MG PO BID for 30 Days, #60 TAB 2 Refills Spironolactone (Spironolactone) 25 Mg Tab 25 MG PO BID, #30 TAB 2 Refills Thiamine HCl (Vitamin B-1) 100 Mg Tab 100 MG PO Q24H, #30 TAB 1 Refill Discontinued Medications: Furosemide (Furosemide) 40 Mg Tab 40 MG PO QPM Furosemide (Lasix) 80 Mg Tab 80 MG PO QAM Lactic Acid (Ammonium Lactate) (Lac-Hydrin Twelve) 12 % Lot 1 APPLN EXT UD, #1 TUBE Midodrine (Midodrine HCl) 2.5 Mg Tab 2.5 MG PO TID Ondansetron Hcl (Zofran) 4 Mg Tab 4 MG PO UD PRN for Nausea Potassium Chloride (Klor-Con M20) 20 Meq Tabcr 20 MEQ PO QAM for 30 Days, #30 MEQ Admission Information HPI (per Admitting provider): 52 yo alcoholic cirrhotic presents to the ER with weight gain in her abdomen and legs for the past month since leaving the hospital. She reports being out of her medications as of last Wed, which was 6 days ago, and this includes her diuretics. She reports some abdominal discomfort generally with some worsening of abdominal pain located in her LUQ and RLQ area at the point where the distension begins. The pain is worse with changing positions. She was contacted by her PCP, however, to come into the ER because her sodium was found to be 118 on outpatient labwork. She denies any headaches, SOB, chest pain, fevers, chills, nausea, hemoptysis, hematemesis, hematochezia. She reports vomiting twice today but doesn't know why; she states she was still able to eat yogurt and a pizza her brought her, however. She reports her last BM was today and reports not liking the lactulose. ROS also reveals some sore throat and cough that is chronic and only at night. She is still smoking at least 7 cigarettes daily. She maintains that her last drink was December 16, 2016. She was recently admitted 03/12-03/15 for the same presentation of fluid retention and hyponatremia and was admitted in short succession twice before that for again a similar presentation (02/02-02/11 and 02/22-03/01). During her last admission she was placed on IV Lasix BID with fluid restriction and was sent out on Rifaximin as a new medication. Since then, she reports continual fluid gain and ascites. Physical Exam (per Admitting): General Appearance: no apparent distress, + obese Head: normocephalic, atraumatic Eyes: normal inspection, PERRL, EOMI, + abnormal sclerae exam (scleral icterus) ENT: hearing grossly normal, pharynx normal Neck: supple, no JVD, trachea midline, + pertinent finding (telangiectasias on anterior chest and neck) Respiratory/Chest: lungs clear, normal breath sounds, no respiratory distress, no accessory muscle use Cardiovascular: regular rate, rhythm, no gallop, no murmur, normal peripheral pulses, + pertinent finding (diffuse 3+ pitting edema bilateral LEs to groin) Abdomen/GI: normal bowel sounds, non tender, soft, + pertinent finding ( protuberant abdomen with positive fluid wave but no TTP on exam. 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 ) Hospital Course 52 yo F with alcoholic cirrhosis presents with increased fluid retention 2/2 decompensated cirrhosis. Decompensated Alcoholic Liver Cirrhosis - this is the patient's 4th admission since December - Weight gain over the past month. Pt reports running out of diuretics one week ago, but today reports she was taking them regularly. Reports compliance with her fluid restriction at home and a low salt diet. - (+) tense ascites, lower leg edema - Tot bili 3.5 Inr 1.4 - GI consulted- Dr. Colón recommend transfer to [facility] given marginal BP, hyponatremia of 119, elevated crea of 1.9 from baseline 0.[address] Howard, [facility] hospitalist who kindly accepted the patient Hypervolemic hyponatremia 2/2 low effective arterial volume in setting of cirrhosis with fluid accumulation Possible Hepatorenal Syndrome - Na 120-->119 Crea 0.8 (last month) --> 1.9 currently on Lasix 40mg IV, usual Aldactone, Midodrine increased, Albumin and Octreotide started BP marginal systolic 90s Nephrology consulted recommend transfer to [facility] for tertiary level of care h/o ETOH abuse-maintains her abstinence since December 16 of this year. GERD and h/o bleeding esophageal varices-cont Protonix BID per home regimen . 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 Monitor. Full Code Dispo- transfer to [facility] case discussed with patient and her she is agreeable and understanding of plan of care Total time spent on discharge = 45 minutes This includes examination of the patient, discharge planning, medication reconciliation, and communication with other providers. Discharge Instructions Discharge Instructions Date of Service Apr 10, 2017. Admission Reason for Admission: Hyponatremia Discharge Discharge Diagnosis / Problem: ACUTE DECOMPENSATED LIVER CIRRHOSIS, HYPONATREMIA, POSSIBL HEPATORENAL SYND Discharge Goals Goal(s): Diagnostic testing, Therapeutic intervention Activity Recommendations Activity Level: Bedrest . Additional Information Patient informed of condition: Yes Advance Directives: No (UNKNOWN) DNR: No (PATIENT IS FULL CODE) Level of Care: Other ([facility]) Communicable Disease: No Prognosis: Other (GUARDED) Malloy Catheter: Yes Instructions / Follow-Up Instructions / Follow-Up PLEASE REFER TO ACCOMPANYING HOSPITAL DISCHARGE SUMMARY FOR FURTHER DETAILS. PLEASE REFER TO SEPARATE MEDICAL RECONCILIATION SHEET FOR UPDATED INPATIENT MEDICATION LIST. Current Hospital Diet Patient's current hospital diet: Low Sodium Diet (2gm Na) Discharge Diet Recommended Diet: Low Sodium Diet (2gm Na) Fluid Restriction: 1500 ml (6 cups) Pending Studies Studies pending at discharge: yes List of pending studies: FURTHER EVALUATION AND MANAGEMENT PER [facility] Physician Orders On Transfer Special Precautions: PLEASE REFER TO ACCOMPANYING HOSPITAL DISCHARGE SUMMARY FOR FURTHER DETAILS. PLEASE REFER TO SEPARATE MEDICAL RECONCILIATION SHEET FOR UPDATED INPATIENT MEDICATION LIST. Medical Emergencies . Who to Call and When: Medical Emergencies: If at any time you feel your situation is an emergency, please call 911 immediately. . Non-Emergent Contact Non-Emergency issues call your: Primary Care Provider Call Non-Emergent contact if: you have a fever, your pain is not controlled, your pain is worsening, you have any medication questions . . "Provider Documentation" section prepared by Denis Keys. . Core Measure Problem Core Measures: None
[2017-04-30] MEDS ORDERED: LACT10SO30 PO (12:05)
[2017-04-30] MEDS ORDERED: CHOL1000 PO (12:05)
[2017-04-30] MEDS ORDERED: LCTS240 PO (12:10)
[2017-04-30] MEDS ORDERED: CHOL400T22 PO (12:10)
[2017-04-30] MEDS ORDERED: POTA20TA16 PO (12:10)
[2017-04-30] MEDS ORDERED: FRS/40 PO (12:10)
== END 2017-04-10 19:45 | disposition short-term general hospital (02) | DRG 432 ==
LOC: C.EDB 17:47 → C.MED 19:03 → ENRESERV 20:02
PROVIDERS: ADMIT Hospitalist; ATTEND Internal Medicine
DX: K70.31 Alcoholic cirrhosis of liver with ascites (principal); K76.7 Hepatorenal syndrome; E87.1 Hypo-osmolality and hyponatremia; I85.00 Esophageal varices without bleeding; E87.0 Hyperosmolality and hypernatremia; Z82.3 Family history of stroke; F17.200 Nicotine dependence, unspecified, uncomplicated; R60.1 Generalized edema; Z82.49 Family history of ischemic heart disease and other diseases of the circulatory system; F10.11 Alcohol abuse, in remission; K21.9 Gastro-esophageal reflux disease without esophagitis; D50.0 Iron deficiency anemia secondary to blood loss (chronic); F32.9 Major depressive disorder, single episode, unspecified

== ENCOUNTER 2017-05-10 17:39 | Inpatient (IN) | payer BC ==
[~2017-05-10] VITALS: Ht 165.1 cm; Wt 85.4 kg
[~2017-05-10 17:39] MED LIST changes: +CHOL400T22 PO; -ESCI10TA17 PO; +FRS/40 PO; +LACT10SO30 PO; -LACT12LO EXT; -LCTL45 PO; +LCTS240 PO; -LSX40 PO; -MCRK20 PO; +POTA20TA16 PO; +TRAM-10 PO; -ULT50X PO
[2017-05-10 18:00] VITALS: BP 104/58; PULSE 92; TEMP 36.7; O2SAT 96; Ht 165.1 cm; Wt 85.4 kg
[2017-05-10 19:48] LABS: BASO % 0.5 %; BASO ABS # 0.04 K/uL (0-0.2); EOS % 1.5 %; HEMATOCRIT 26.8 % (37-47); IG% 0.4 %; LYMPH % 15.1 %; LYMPH ABS # 1.13 K/uL (1.2-3.4); MEAN CELL VOLUME 89.3 fL (80-100); MEAN CORPUSCULAR HEMOGLOBIN 30.7 pg (25-34); MEAN PLATELET VOLUME 9.9 fL (7.4-10.4); MONO % 12.9 %; NEUT % 69.6 %; PLATELET COUNT 227 K/uL (130-400); WHITE BLOOD COUNT 7.46 K/uL (4.8-10.8)
[2017-05-10 19:49] VITALS: BP 104/64; PULSE 91; TEMP 36.7; O2SAT 95
[2017-05-10 19:51] LABS: MEAN CORPUSCULAR HGB CONC 34.3 g/dl (32-36)
[2017-05-10 20:00] LABS: INR 1.4 (0.9-1.1); PARTIAL THROMBOPLASTIN RATIO 1.5; PROTHROMBIN TIME (PATIENT) 15.5 SECONDS (9.0-12.0)
[2017-05-10 20:23] LABS: CREATININE 1.62 mg/dl (0.60-1.20); MAGNESIUM 1.7 mg/dl (1.8-2.4); POTASSIUM 3.5 mmol/L (3.5-5.1)
[2017-05-10 20:27] LABS: ACANTHOCYTES 1+; ANISOCYTOSIS PRESENT; COMPLETE YES
[2017-05-10] MEDS ORDERED: ALBUMIN HUMAN 25% 12.5 GM/50 ML VIAL IV SCH (21:00)
[2017-05-10] MEDS ORDERED: POTASSIUM CHLORIDE 20 MEQ TABCR PO STA (21:07)
[2017-05-10] MEDS: LORAZEPAM 0.5 MG TAB PO PRN (21:19)
[2017-05-10] MEDS: TRAMADOL HCL 50 MG TAB PO PRN (21:19)
[2017-05-10] MEDS: FUROSEMIDE INJ 40 MG in SYRINGE 0 ML IV SCH (21:20)
[2017-05-10] MEDS: LACTULOSE SYRUP 10 GM/15 ML BTL 473 ML PO SCH (21:20)
[2017-05-10] MEDS: RIFAXIMIN TAB 550 MG TAB PO SCH (21:21)
[2017-05-10] MEDS: PANTOprazole SOD 40 MG TAB PO SCH (21:21)
[2017-05-10] MEDS: THIAMINE HCL 100 MG TAB PO SCH (21:21)
[2017-05-10] MEDS: SPIRONOLACTONE 25 MG TAB PO SCH (21:22)
--- NOTE | 2017-05-10 21:25 | History and Physical ---
History & Physical Date & Time of Service: May 10, 2017 at 21:13 Chief Complaint: Alcoholic Cirrhosis, Hyponatremia Primary Care Physician: Stef Hylton D.OJacek History of Present Illness This is a 52 year old F with history of cirrhosis who as per history due to alcohol use but no recent alcohol use who is a patient of Dr. Funk of [facility], sent by Dr. Funk as direct admission for Hyponatremia and as significant fluid overload with returning of abdominal distention after having paracentesis 1 week ago and lower extremity swelling. Patient denies chest pain or shortness of breath but reports discomfort from abdominal distention. Patient denies vomiting or diarrhea or dysuria or confusion Past Medical/Surgical History Medical Problems: (1) AC ALCOHOLIC HEPATITIS Status: Resolved (2) Cirrhosis with alcoholism Status: Chronic (3) DEPRESSIVE DISORDER NEC Status: Chronic (4) DUODENAL ULCER NOS Status: Chronic (5) ESOPHAGEAL REFLUX Status: Chronic (6) Esophageal varices Status: Chronic (7) H/O ETOH abuse Status: Chronic Family History FH: CAD (coronary artery disease) FATHER Stroke MOTHER Social History Smoking Status: Light Tobacco Smoker Drug Use: none, other Marital Status: Housing status: lives with significant other Occupational Status: disabled Immunizations History of Influenza Vaccine: Yes Influenza Vaccine Date: Mar 02, 2017 History of Tetanus Vaccine?: Yes Tetanus Immunization Date: Jun 28, 2015 History of Pneumococcal: Yes Pneumococcal Date: Nov 23, 2009 History of Hepatitis B Vaccine: Yes Hepatitis Immunization Date: Apr 11, 2012 Multi-Drug Resistant Organisms History of MDRO: No Allergies Coded Allergies: No Known Allergies (Verified , 04/30/17) Home Medications Scheduled Cholecalciferol (D3 High Potency), 1 TAB PO BID Folic Acid (Folic Acid), 1 MG PO QAM Furosemide (Lasix), 40 MG PO BID Lactulose (Chronulac), 15 ML PO TID Lactulose (Encephalopathy) (Lactulose), Unknown Dose PO TID Midodrine (Midodrine HCl), 7.5 MG PO TID@0800,1200,1600 Multivitamins/Minerals (Mvi With Minerals), 1 TAB PO DAILY Pantoprazole (Protonix), 40 MG PO BID Potassium Ext Rel (Klor-Con), 10 MEQ PO DAILY Rifaximin (Xifaxan), 550 MG PO BID Spironolactone (Spironolactone), 25 MG PO BID Thiamine HCl (Vitamin B-1), 100 MG PO Q24H Scheduled PRN Lorazepam (Ativan), 0.5 MG PO BID PRN for Anxiety Tramadol (Ultram), 50 MG PO BID PRN for Pain Review of Systems Constitutional: No fever Physical Exam Vital Signs Date Time Temp Pulse Resp B/P (MAP) Pulse Ox O2 Delivery O2 Flow Rate FiO2 05/10/17 19:49 36.7 91 16 104/64 (77) 95 Room Air 05/10/17 18:00 36.7 92 16 104/58 96 Room Air General Appearance: WD/WN, no apparent distress Head: normocephalic, atraumatic Eyes: normal inspection, EOMI, sclerae normal ENT: normal ENT inspection, hearing grossly normal, TMs normal, pharynx normal Neck: no JVD, trachea midline Respiratory/Chest: chest non-tender, lungs clear, normal breath sounds, no respiratory distress, no accessory muscle use Cardiovascular: regular rate, rhythm, no JVD Abdomen/GI: normal bowel sounds, non tender, + distended Back: normal inspection, no muscle spasm Extremities/Musculoskelatal: + pedal edema, + swelling (bilateral lower extremity swelling) Neurologic/Psych: no motor/sensory deficits, alert, oriented x 3 Skin: normal color, warm/dry Diagnostics Laboratory Results Results Past 24 Hours Test 05/10/17 18:50 05/10/17 19:30 Range/Units White Blood Count 7.46 4.8-10.8 K/uL Red Blood Count 3.00 4.2-5.4 M/uL Hemoglobin 9.2 12.0-16.0 g/dL Hematocrit 26.8 37-47 % Mean Corpuscular Volume 89.3 80-100 fL Mean Corpuscular Hemoglobin 30.7 25-34 pg Mean Corpuscular Hemoglobin Concent 34.3 32-36 g/dl Platelet Count 227 130-400 K/uL Mean Platelet Volume 9.9 7.4-10.4 fL Neutrophils (%) (Auto) 69.6 % Lymphocytes (%) (Auto) 15.1 % Monocytes (%) (Auto) 12.9 % Eosinophils (%) (Auto) 1.5 % Basophils (%) (Auto) 0.5 % Neutrophils # (Auto) 5.19 1.4-6.5 K/uL Lymphocytes # (Auto) 1.13 1.2-3.4 K/uL Monocytes # (Auto) 0.96 0.11-0.59 K/uL Eosinophils # (Auto) 0.11 0-0.5 K/uL Basophils # (Auto) 0.04 0-0.2 K/uL RDW Standard Deviation 66.9 36.4-46.3 fL RDW Coefficient of Variation 20.5 11.5-14.5 % Immature Granulocyte % (Auto) 0.4 % Immature Granulocyte # (Auto) 0.03 0.00-0.02 K/uL Anisocytosis PRESENT Acanthocytes 1+ Prothrombin Time 15.5 9.0-12.0 SECONDS Prothromb Time International Ratio 1.4 0.9-1.1 Activated Partial Thromboplast Time 40.3 21.0-31.0 SECONDS Partial Thromboplastin Ratio 1.5 Sodium Level 122 136-145 mmol/L Potassium Level 3.5 3.5-5.1 mmol/L Chloride Level 88 98-107 mmol/L Carbon Dioxide Level 22 21-32 mmol/L Anion Gap 12.0 3-11 mmol/L Blood Urea Nitrogen 18 7-18 mg/dl Creatinine 1.62 0.60-1.20 mg/dl Est Creatinine Clear Calc Drug Dose 43.3 ml/min Estimated GFR () 41.3 Estimated GFR (Non- 35.6 BUN/Creatinine Ratio 11.0 10-20 Random Glucose 102 70-99 mg/dl Osmolality 255 280-300 mOsm/kg Calcium Level 9.0 8.5-10.1 mg/dl Magnesium Level 1.7 1.8-2.4 mg/dl Total Bilirubin 5.8 0.2-1 mg/dl Aspartate Amino Transf (AST/SGOT) 57 15-37 U/L Alanine Aminotransferase (ALT/SGPT) 23 12-78 U/L Alkaline Phosphatase 225 45-117 U/L Total Protein 6.9 6.4-8.2 gm/dl Albumin 3.5 3.4-5.0 gm/dl Globulin 3.4 2.5-4.0 gm/dl Albumin/Globulin Ratio 1.0 0.9-2 Chemistry Specimen Hemolysis EKG EKG ordered Impression Assessment and Plan Cirrhosis with lower extremity swelling abdominal distention and likely ascites -patient of Dr. Funk of [facility], denies recent alcohol use, had paracentesis 1 week ago -appreciate gastroenterology consult as inpatient to follow and whether patient will need further paracentesis -albumin 25 mg TID, Lasix 40 IV mg BID -continue home medications of midodrine, spirolactone, thiamine, rifaximin, folic acid -Lower extremity ultrasound ordered -daily weight, intake and output, fluid restriction to 1 liter daily -nephrology consult requested for assistance with fluid management and hyponatremia Hyponatremia -Serum sodium trended down from 128 to 119. Admission Serum Sodium is 122 -serum and urine osmolality and urine sodium ordered -expect IV diuretics with albumin to reduce fluid overload and then subsequently serum sodium should increase -nephrology consult requested for assistance with fluid management and hyponatremia Electrolyte deficiencies -Admission serum Mag 1.7, hypomagnesemia, 2 grams of IV magnesium ordered -Admission serum potassium 3.5, hypokalemia, 40 meq PO potassium ordered -trend electrolytes when on increased diuretics CKD -monitor renal function with increased diuretics -nephrology consult requested for assistance with fluid management and hyponatremia Outpatient X Ray on 04/27/17 "Lucency in the left lower lobe which may represent an air-fluid level in a bulla, cavitation or abscess. Consider further evaluation with a CT of the thorax with contrast for better characterization" However patient could not receive IV Contrast due to low GFR Pain control for abdominal distention: tramadol DVT ppx: heparin 5000 units subc q8 hours Full Code Status, Telemetry admission Advanced Directives Existing Living Will: No Existing Power of Department Secretary: No VTE Prophylaxis VTE Risk Assessment Done? Y/N: Yes Risk Level: Moderate
[2017-05-10] MEDS: HEPARIN SOD 5000 UNIT/0.5 ML CARP SQ SCH (21:30)
[2017-05-10] MEDS: MAGNESIUM SULFATE 1GM / D5W 1 GM in PREMIXED IN D5W 100 ML IV SCH ×2 (21:37→21:38)
[2017-05-10] MEDS: ALBUMIN HUMAN 25% 12.5 GM/50 ML VIAL IV SCH (21:38)
[2017-05-10] MEDS ORDERED: HEPARIN SOD 5000 UNIT/0.5 ML CARP SQ SCH (22:00)
[2017-05-10] MEDS: HYDROmorphone INJ 0.5 MG/0.5 ML SYR IV PRN (22:31)
[2017-05-10 23:15] VITALS: BP 101/53; PULSE 92; TEMP 36.7; O2SAT 95
[2017-05-11] VITALS (7 sets, daily range): BP systolic 89–113; BP diastolic 45–66; PULSE 18–96; TEMP 36.5–36.8; O2SAT 91–96
[2017-05-11] MEDS: HEPARIN SOD 5000 UNIT/0.5 ML CARP SQ SCH ×2 (06:03→13:53)
[2017-05-11 06:33] LABS: BUN/CREATININE RATIO 12.7 (10-20); CALCIUM 8.6 mg/dl (8.5-10.1); CREATININE 1.55 mg/dl (0.60-1.20); MAGNESIUM 2.1 mg/dl (1.8-2.4); POTASSIUM 3.7 mmol/L (3.5-5.1)
--- NOTE | 2017-05-11 06:39 | DIAGNOSTIC IMAGING REPORT ---
BILATERAL LOWER EXTREMITY VENOUS DOPPLER HISTORY: bilateral leg edema, leg pain COMPARISON STUDY: None. FINDINGS: There is normal compressibility, flow, and augmentation within the bilateral lower extremity deep venous systems. IMPRESSION: No DVT within the right or left lower extremity. Electronically signed by: Michael De Leon M.D. 05/11/2017 6:38 AM Dictated Date/Time: 05/11/2017 6:38 AM
[2017-05-11 06:58] LABS: ALB/GLOB RATIO 1.1 (0.9-2)
[2017-05-11 07:03] LABS: MEAN CELL VOLUME 90.1 fL (80-100); MEAN CORPUSCULAR HEMOGLOBIN 30.9 pg (25-34); MEAN CORPUSCULAR HGB CONC 34.3 g/dl (32-36); MEAN PLATELET VOLUME 9.7 fL (7.4-10.4); PLATELET COUNT 191 K/uL (130-400); RED BLOOD COUNT 2.33 M/uL (4.2-5.4); WHITE BLOOD COUNT 6.38 K/uL (4.8-10.8)
[2017-05-11 07:40] LABS: ACANTHOCYTES 1+; ANISOCYTOSIS PRESENT; BASO % 0.5 %; BASO ABS # 0.03 K/uL (0-0.2); COMPLETE YES; EOS % 2.7 %; IG% 0.5 %; LARGE PLATELETS 1+; LYMPH % 10.7 %; LYMPH ABS # 0.68 K/uL (1.2-3.4); MONO % 20.1 %; NEUT % 65.5 %
[2017-05-11] MEDS: MIDODRINE 2.5 MG TAB PO SCH ×3 (07:55→15:57)
[2017-05-11] MEDS: FUROSEMIDE INJ 40 MG in SYRINGE 0 ML IV SCH (07:56)
[2017-05-11] MEDS: ALBUMIN HUMAN 25% 12.5 GM/50 ML VIAL IV SCH (07:57)
[2017-05-11] MEDS: SPIRONOLACTONE 25 MG TAB PO SCH ×2 (07:58→15:58)
[2017-05-11] MEDS: LACTULOSE SYRUP 10 GM/15 ML BTL 473 ML PO SCH ×3 (07:58→20:38)
[2017-05-11] MEDS: POTASSIUM CHLORIDE 10 MEQ TABCR PO SCH (07:59)
[2017-05-11] MEDS: CEROVITE ADV FORMULA TAB PO SCH (07:59)
[2017-05-11] MEDS: PANTOprazole SOD 40 MG TAB PO SCH ×2 (07:59→20:38)
[2017-05-11] MEDS: CHOLECALCIFEROL 400 INTER.UNIT TAB PO SCH (07:59)
[2017-05-11] MEDS: RIFAXIMIN TAB 550 MG TAB PO SCH ×2 (08:00→20:39)
--- NOTE | 2017-05-11 11:28 | Gastrointestinal Consultation ---
Gastrointestinal Consultation Date of Consultation: May 11, 2017 Attending Physician: Dr. Crawford Consulting Physician: Dr. Chou Reason for Consultation: hyponatremia; cirrhosis; volume overload History of Present Illness Patient is a 52 year old female with a history of decompensated alcoholic cirrhosis (currently abstinent for a few months per patient) who has been admitted to the hospital at least 5 times in the last 6 months with a variety of complication of his cirrhosis including volume overload, hyponatremia, and HRS. He was most recently admitted in mid March with hyponatremia, volume overload and worsening renal insufficiency and hepatorenal syndrome and ultimately transferred to [facility]. She was seen in the GI clinic by Dr. Funk yesterday and routine labs were significant for sodium of 119. Volume overloaded. Last paracentesis was 1 week ago. She was contacted and direct admission was arranged. She was placed on fluid restriction, IV Lasix and albumin. Na this AM is 124. Her renal function is stable with creatinine in the 1.5-1.6 range. MELD is 29. Past Medical/Surgical History Medical Problems: (1) Abdominal pain Status: Acute (2) Abdominal pain, left upper quadrant Status: Acute (3) Acute renal failure (ARF) Status: Acute (4) Alcoholic cirrhosis of liver with ascites Status: Acute (5) Anasarca Status: Acute (6) Ascites Status: Acute (7) Cirrhosis Status: Acute (8) Diarrhea Status: Acute (9) GI bleed Status: Acute (10) Hypoalbuminemia Status: Acute (11) Hypokalemia Status: Acute (12) Hyponatremia Status: Acute (13) Hyponatremia Status: Acute (14) Hyponatremia Status: Acute (15) Liver failure Status: Acute (16) Syncope Status: Acute Past Medical History: as noted Past Surgical History: reviewed and noted Family History FH: CAD (coronary artery disease) FATHER Stroke MOTHER non-contributory Social History Smoking Status: Light Tobacco Smoker Alcohol Use: heavy Drug Use: none, other Marital Status: Housing Status: lives with family Occupation Status: disabled Allergies Coded Allergies: No Known Allergies (Verified , 04/30/17) Current Medications Home Meds and Scripts Medications Dose Route/Sig Max Daily Dose Days Date Category Klor-Con (Potassium Chloride) 20 Meq Tabcr 10 Meq PO DAILY 04/30/17 Reported Chronulac (Lactulose) 10 Gm/15 Ml Syrp 15 Ml PO TID 04/30/17 Reported Lasix (Furosemide) 40 Mg Tab 40 Mg PO BID 04/30/17 Reported D3 High Potency (Cholecalciferol) 400 Unit Tab 1 Tab PO BID 04/30/17 Reported Lactulose (Lactulose (Encephalopathy)) 10 Gm/15 Ml Claire Unknown Dose PO TID 04/30/17 Reported Midodrine HCl (Midodrine) 2.5 Mg Tab 7.5 Mg PO TID@0800,1200,1600 30 04/10/17 Rx Ultram (Tramadol HCl) 50 Mg Tab 50 Mg PO BID PRN 10 04/10/17 Rx Xifaxan (Rifaximin) 550 Mg Tab 550 Mg PO BID 30 03/15/17 Rx Spironolactone 25 Mg Tab 25 Mg PO BID 03/12/17 Rx Folic Acid 1 Mg Tab 1 Mg PO QAM 30 03/01/17 Rx Mvi With Minerals (Multivitamins/Minerals) Tab 1 Tab PO DAILY 30 02/11/17 Rx Vitamin B-1 (Thiamine HCl) 100 Mg Tab 100 Mg PO Q24H 02/11/17 Rx Protonix (Pantoprazole Sodium) 40 Mg Tab 40 Mg PO BID 11/19/12 Reported Ativan (Lorazepam) 0.5 Mg Tab 0.5 Mg PO BID PRN 02/16/12 Reported Review of Systems 12 systems reviewed and negative except as noted Physical Exam Date Time Temp Pulse Resp B/P (MAP) Pulse Ox O2 Delivery O2 Flow Rate FiO2 05/11/17 08:00 Room Air 05/11/17 07:53 36.5 86 18 89/45 (60) 95 Room Air 05/11/17 04:15 36.6 88 16 94/62 (73) 95 Room Air 05/11/17 04:15 Room Air 05/10/17 23:45 Room Air 05/10/17 23:15 36.7 92 18 101/53 (69) 95 Room Air 05/10/17 20:30 Room Air 05/10/17 19:49 36.7 91 16 104/64 (77) 95 Room Air 05/10/17 18:00 36.7 92 16 104/58 96 Room Air General Appearance: WD/WN, no apparent distress Eyes: normal inspection ENT: normal ENT inspection, hearing grossly normal, pharynx normal Neck: supple, no adenopathy Respiratory/Chest: chest non-tender, lungs clear, normal breath sounds, no accessory muscle use Cardiovascular: regular rate, rhythm, no murmur Abdomen: normal bowel sounds, + distended Extremities: normal range of motion, + pedal edema (significant LE edema) Neurologic/Psych: recruiting assistant II-XII nml as tested, no motor/sensory deficits, alert, normal mood/affect, oriented x 3 Skin: warm/dry, + jaundice Laboratory Results Last 24 Hours Test 05/10/17 19:30 05/11/17 05:20 White Blood Count 7.46 K/uL 6.38 K/uL Red Blood Count 3.00 M/uL 2.33 M/uL Hemoglobin 9.2 g/dL 7.2 g/dL Hematocrit 26.8 % 21.0 % Mean Corpuscular Volume 89.3 fL 90.1 fL Mean Corpuscular Hemoglobin 30.7 pg 30.9 pg Mean Corpuscular Hemoglobin Concent 34.3 g/dl 34.3 g/dl Platelet Count 227 K/uL 191 K/uL Mean Platelet Volume 9.9 fL 9.7 fL Neutrophils (%) (Auto) 69.6 % 65.5 % Lymphocytes (%) (Auto) 15.1 % 10.7 % Monocytes (%) (Auto) 12.9 % 20.1 % Eosinophils (%) (Auto) 1.5 % 2.7 % Basophils (%) (Auto) 0.5 % 0.5 % Neutrophils # (Auto) 5.19 K/uL 4.19 K/uL Lymphocytes # (Auto) 1.13 K/uL 0.68 K/uL Monocytes # (Auto) 0.96 K/uL 1.28 K/uL Eosinophils # (Auto) 0.11 K/uL 0.17 K/uL Basophils # (Auto) 0.04 K/uL 0.03 K/uL RDW Standard Deviation 66.9 fL 67.5 fL RDW Coefficient of Variation 20.5 % 20.7 % Immature Granulocyte % (Auto) 0.4 % 0.5 % Immature Granulocyte # (Auto) 0.03 K/uL 0.03 K/uL Anisocytosis PRESENT PRESENT Acanthocytes 1+ 1+ Prothrombin Time 15.5 SECONDS Prothromb Time International Ratio 1.4 Activated Partial Thromboplast Time 40.3 SECONDS Partial Thromboplastin Ratio 1.5 Sodium Level 122 mmol/L 124 mmol/L Potassium Level 3.5 mmol/L 3.7 mmol/L Chloride Level 88 mmol/L 89 mmol/L Carbon Dioxide Level 22 mmol/L 25 mmol/L Anion Gap 12.0 mmol/L 10.0 mmol/L Blood Urea Nitrogen 18 mg/dl 20 mg/dl Creatinine 1.62 mg/dl 1.55 mg/dl Est Creatinine Clear Calc Drug Dose 43.3 ml/min 45.8 ml/min Estimated GFR () 41.3 43.5 Estimated GFR (Non- 35.6 37.6 BUN/Creatinine Ratio 11.0 12.7 Random Glucose 102 mg/dl 86 mg/dl Osmolality 255 mOsm/kg Calcium Level 9.0 mg/dl 8.6 mg/dl Magnesium Level 1.7 mg/dl 2.1 mg/dl Total Bilirubin 5.8 mg/dl 4.6 mg/dl Aspartate Amino Transf (AST/SGOT) 57 U/L 40 U/L Alanine Aminotransferase (ALT/SGPT) 23 U/L 19 U/L Alkaline Phosphatase 225 U/L 192 U/L Total Protein 6.9 gm/dl 6.0 gm/dl Albumin 3.5 gm/dl 3.2 gm/dl Globulin 3.4 gm/dl 2.8 gm/dl Albumin/Globulin Ratio 1.0 1.1 Chemistry Specimen Hemolysis Large Platelets 1+ Impression Patient is a 52 year old female with decompensated ETOH cirrhosis with multiple hospitalizations over the last few months. Admitted with Na of 119 and volume overload. Overall her prognosis remains quite poor. MELD 29. Responding to volume restriction, IV diuresis and albumin. Would continue current course and follow labs closely. Plan as noted above
--- NOTE | 2017-05-11 13:53 | Nephrology Consultation ---
Nephrology Consultation Date of Consultation: May 11, 2017. Attending Physician: Dr Ramirez Requesting Physician: Dr Crawford Reason for Consultation: volume overload in ESLD History of Present Illness 52 year old female w/ alcoholic liver cirrhosis sent from GI clinic d/t worsening volume overload and noted on arrival to have sNa 122 and creatinine 1.6. Her sNa had been 119 as an outpt. This is her 5th admission since spring 2016 w/ same issue. At admission here last month, transferred to [facility] [place]ACY d/ t decreased intravascular volume depletion, worsening volume/renal status and dysnatremia. Peak creatinine that admission 2.7; had a 6 L and 4.5L paracentesis that admission. Other PMH includes active tobacco abuse, depression, anxiety. Last EtOH use was 12/2016. Denies confusion, n/v, recent fall, CISNEROS; denies blood in stool or urine. Endorses significant edema limiting her ability to bend legs and to balance, increasing abdominal girth, exertional dyspnea but no orthopnea. States that she has been faithful to outpt regimen of 1.5L fluid limit, 25 mg bid spironolactone and 40 mg bid lasix; denies recent changes in this regimen. No recent f/c or abd pain. Denies nsaid use. GI is following; no procedures/interventions currently planned. Did have paracentesis one week ago reportedly; no report on volume. Note also that about a week ago per outpt notes, pt had CXR concerning for unexplained LLL lucency (see below) and CT chest recommended but not done. MELD 29. Past Medical/Surgical History Medical Problems: (1) Abdominal pain Status: Acute (2) Abdominal pain, left upper quadrant Status: Acute (3) Acute renal failure (ARF) Status: Acute (4) Alcoholic cirrhosis of liver with ascites Status: Acute (5) Anasarca Status: Acute (6) Ascites Status: Acute (7) Cirrhosis Status: Acute (8) Diarrhea Status: Acute (9) GI bleed Status: Acute (10) Hypoalbuminemia Status: Acute (11) Hypokalemia Status: Acute (12) Hyponatremia Status: Acute (13) Hyponatremia Status: Acute (14) Hyponatremia Status: Acute (15) Liver failure Status: Acute (16) Syncope Status: Acute -alcoholic liver cirrhosis w/ esophageal varices -active tobacco abuse -recurrent hypervolemic hyponatremia -anxiety/depression Family History FH: CAD (coronary artery disease) FATHER Stroke MOTHER Social History Smoking Status: Current Every Day Smoker Alcohol Use: heavy Drug Use: none, other Marital Status: Housing Status: lives with family Occupation Status: disabled denies use EtOH since 12/2016 Allergies Coded Allergies: No Known Allergies (Verified , 04/30/17) Medications Current Inpatient Medications Medications (Trade) Dose Ordered Sig/Betty Route Start Time Stop Time Status Last Admin Dose Admin Heparin Sodium (Porcine) (Heparin Sq 5000 Unit/0.5ml) 5,000 unit Q8H SQ 05/10/17 22:00 06/09/17 21:59 05/11/17 06:03 5,000 UNIT Furosemide 40 mg/ Syringe 4 ml @ 4 mls/min BID17 IV 05/10/17 21:00 06/09/17 20:59 05/11/17 07:56 4 MLS/MIN Cholecalciferol (Vitamin D Tab) 800 inter.unit DAILY PO 05/11/17 09:00 06/10/17 08:59 05/11/17 07:59 800 INTER.UNIT Folic Acid (Folvite Tab) 1 mg QAM PO 05/11/17 09:00 06/10/17 08:59 05/11/17 07:58 1 MG Lactulose (Chronulac Syrup) 10 gm TID PO 05/10/17 21:00 06/09/17 20:59 05/11/17 07:58 10 GM Lorazepam (Ativan Tab) 0.5 mg BID PRN PO 05/10/17 19:00 06/09/17 18:59 05/10/17 21:19 0.5 MG Midodrine (Proamatine Tab) 7.5 mg TID@0800,1200,1600 PO 05/11/17 08:00 06/10/17 07:59 05/11/17 11:41 7.5 MG Multivitamins/ Minerals (Multivitamin W/ Minerals Tab) 1 tab DAILY PO 05/11/17 09:00 06/10/17 08:59 05/11/17 07:59 1 TAB Pantoprazole Sodium (Protonix Tab) 40 mg BID PO 05/10/17 21:00 06/09/17 20:59 05/11/17 07:59 40 MG Potassium Chloride (Klor-Con M10) 10 meq DAILY PO 05/11/17 09:00 06/10/17 08:59 05/11/17 07:59 10 MEQ Rifaximin (Xifaxan Tab) 550 mg BID PO 05/10/17 21:00 06/09/17 20:59 05/11/17 08:00 550 MG Spironolactone (Aldactone Tab) 25 mg BID17 PO 05/10/17 21:00 06/09/17 20:59 05/11/17 07:58 25 MG Thiamine HCl (Vitamin B-1 Tab) 100 mg Q24H PO 05/10/17 21:00 06/09/17 20:59 05/10/17 21:21 100 MG Tramadol HCl (Ultram Tab) 50 mg BID PRN PO 05/10/17 20:45 06/09/17 20:44 05/10/17 21:19 50 MG Albumin Human (Albumin 25%) 25 gm BID IV 05/10/17 21:00 05/13/17 20:59 05/11/17 07:57 25 GM Hydromorphone HCl (Dilaudid Inj) 0.5 mg Q4H PRN IV 05/10/17 22:15 05/24/17 22:14 05/10/17 22:31 0.5 MG Home Meds and Scripts Medications Dose Route/Sig Max Daily Dose Days Date Category Klor-Con (Potassium Chloride) 20 Meq Tabcr 10 Meq PO DAILY 04/30/17 Reported Chronulac (Lactulose) 10 Gm/15 Ml Syrp 15 Ml PO TID 04/30/17 Reported Lasix (Furosemide) 40 Mg Tab 40 Mg PO BID 04/30/17 Reported D3 High Potency (Cholecalciferol) 400 Unit Tab 1 Tab PO BID 04/30/17 Reported Lactulose (Lactulose (Encephalopathy)) 10 Gm/15 Ml Claire Unknown Dose PO TID 04/30/17 Reported Midodrine HCl (Midodrine) 2.5 Mg Tab 7.5 Mg PO TID@0800,1200,1600 30 04/10/17 Rx Ultram (Tramadol HCl) 50 Mg Tab 50 Mg PO BID PRN 10 04/10/17 Rx Xifaxan (Rifaximin) 550 Mg Tab 550 Mg PO BID 30 03/15/17 Rx Spironolactone 25 Mg Tab 25 Mg PO BID 03/12/17 Rx Folic Acid 1 Mg Tab 1 Mg PO QAM 30 03/01/17 Rx Mvi With Minerals (Multivitamins/Minerals) Tab 1 Tab PO DAILY 30 02/11/17 Rx Vitamin B-1 (Thiamine HCl) 100 Mg Tab 100 Mg PO Q24H 02/11/17 Rx Protonix (Pantoprazole Sodium) 40 Mg Tab 40 Mg PO BID 11/19/12 Reported Ativan (Lorazepam) 0.5 Mg Tab 0.5 Mg PO BID PRN 02/16/12 Reported Review of Systems Constitutional: + weakness, + fatigue, No fever Eyes: No worsening of vision ENT: No hearing loss, No unusual epistaxis Respiratory: + dyspnea on exertion, No cough, No wheezing, No dyspnea at rest Cardiac: + edema, No chest pain, No orthopnea, No palpitations Abdomen: No pain, No nausea, No vomiting, No diarrhea, No constipation, No dark urine Musculoskeletal: + joint pain, + muscle pain, + swelling Female : No dysuria, No hematuria Neuro: + weakness, + balance problems, No memory loss Psych: + depression symptoms Heme: No abnormal bleeding/bruising Endo: + fatigue, + excessive thirst Skin: No rash, No new/changing skin lesions Physical Exam Date Time Temp Pulse Resp B/P (MAP) Pulse Ox O2 Delivery O2 Flow Rate FiO2 05/11/17 12:00 Room Air 05/11/17 11:26 36.6 87 19 113/62 (79) 96 Room Air 05/11/17 08:00 Room Air 05/11/17 07:53 36.5 86 18 89/45 (60) 95 Room Air 05/11/17 04:15 36.6 88 16 94/62 (73) 95 Room Air 05/11/17 04:15 Room Air 05/10/17 23:45 Room Air 05/10/17 23:15 36.7 92 18 101/53 (69) 95 Room Air 05/10/17 20:30 Room Air 05/10/17 19:49 36.7 91 16 104/64 (77) 95 Room Air 05/10/17 18:00 36.7 92 16 104/58 96 Room Air General Appearance: WD/WN, + mild distress (on ra; slightly increased wob and dyspnea w/ speech though no nathan distress; some belly breathing) Eyes: EOMI, + pertinent finding (icteric sclerae) ENT: hearing grossly normal Neck: supple Respiratory/Chest: + decreased breath sounds, + wheezing, + pertinent finding ( as above) Cardiovascular: regular rate, rhythm, + pertinent finding (edema) Abdomen: normal bowel sounds, non tender, soft, + pertinent finding (ascites/ marked distension) Extremities: + pedal edema, + swelling Neurologic/Psych: alert, normal mood/affect, oriented x 3 Skin: warm/dry, no rash, + jaundice Diagnostics Last 24 Hours Test 05/10/17 19:30 05/11/17 05:20 05/11/17 12:30 White Blood Count 7.46 K/uL 6.38 K/uL Red Blood Count 3.00 M/uL 2.33 M/uL Hemoglobin 9.2 g/dL 7.2 g/dL Hematocrit 26.8 % 21.0 % Mean Corpuscular Volume 89.3 fL 90.1 fL Mean Corpuscular Hemoglobin 30.7 pg 30.9 pg Mean Corpuscular Hemoglobin Concent 34.3 g/dl 34.3 g/dl Platelet Count 227 K/uL 191 K/uL Mean Platelet Volume 9.9 fL 9.7 fL Neutrophils (%) (Auto) 69.6 % 65.5 % Lymphocytes (%) (Auto) 15.1 % 10.7 % Monocytes (%) (Auto) 12.9 % 20.1 % Eosinophils (%) (Auto) 1.5 % 2.7 % Basophils (%) (Auto) 0.5 % 0.5 % Neutrophils # (Auto) 5.19 K/uL 4.19 K/uL Lymphocytes # (Auto) 1.13 K/uL 0.68 K/uL Monocytes # (Auto) 0.96 K/uL 1.28 K/uL Eosinophils # (Auto) 0.11 K/uL 0.17 K/uL Basophils # (Auto) 0.04 K/uL 0.03 K/uL RDW Standard Deviation 66.9 fL 67.5 fL RDW Coefficient of Variation 20.5 % 20.7 % Immature Granulocyte % (Auto) 0.4 % 0.5 % Immature Granulocyte # (Auto) 0.03 K/uL 0.03 K/uL Anisocytosis PRESENT PRESENT Acanthocytes 1+ 1+ Prothrombin Time 15.5 SECONDS Prothromb Time International Ratio 1.4 Activated Partial Thromboplast Time 40.3 SECONDS Partial Thromboplastin Ratio 1.5 Sodium Level 122 mmol/L 124 mmol/L Potassium Level 3.5 mmol/L 3.7 mmol/L Chloride Level 88 mmol/L 89 mmol/L Carbon Dioxide Level 22 mmol/L 25 mmol/L Anion Gap 12.0 mmol/L 10.0 mmol/L Blood Urea Nitrogen 18 mg/dl 20 mg/dl Creatinine 1.62 mg/dl 1.55 mg/dl Est Creatinine Clear Calc Drug Dose 43.3 ml/min 45.8 ml/min Estimated GFR () 41.3 43.5 Estimated GFR (Non- 35.6 37.6 BUN/Creatinine Ratio 11.0 12.7 Random Glucose 102 mg/dl 86 mg/dl Osmolality 255 mOsm/kg Calcium Level 9.0 mg/dl 8.6 mg/dl Magnesium Level 1.7 mg/dl 2.1 mg/dl Total Bilirubin 5.8 mg/dl 4.6 mg/dl Aspartate Amino Transf (AST/SGOT) 57 U/L 40 U/L Alanine Aminotransferase (ALT/SGPT) 23 U/L 19 U/L Alkaline Phosphatase 225 U/L 192 U/L Total Protein 6.9 gm/dl 6.0 gm/dl Albumin 3.5 gm/dl 3.2 gm/dl Globulin 3.4 gm/dl 2.8 gm/dl Albumin/Globulin Ratio 1.0 1.1 Chemistry Specimen Hemolysis Large Platelets 1+ Urine Osmolality 200 mOms/kg Urine Random Sodium 8 mEq/L Diagnostic Radiology: Dopplers BLE > no DVT 04/25/17 CXR as outpt 2 view L pleural effusion; new LLL lucency which may be air fluid level, cavitation, bulla, abscess >> CT recommended to evaluate EKG: nsr; prol QTc Assessment & Plan 52 y/o F w/ 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 Presenting sNa 122; up to 124 this am. massive volume overload and some concern respiratory status may be worsening. Her creatinine had run 0.8 or so all summer. Last month she had TRACY d/t decreased intravascular volume w/ peak creatinine during [facility] [place] 2.7. By early April creat was 1.4. Note that on 04/25 she had CXR concerning for L pleural effusion and LLL lucency needing further evaluation. >hypervolemic hyponatremia >alcoholic liver cirrhosis >worsening/labile renal failure, w/ TRACY last month from volume depletion >L pleural effusion and LLL lucency 04/25/2017 on XR -cont current spironolactone dose -limit po fluids to 1.2L daily -<2 gm daily sNa diet -change lasix/albumin to combo and give 30 IV mg tid 0600, noon, 1800 >> ordered -goal sNa for tomorrow is 130 though doubt she will hit this easily -recheck bmp now and again daily -ordered 2 view CXR to f/u on prior imaging abnormality -baseline uacm ordered -cont strict I/o -needs daily standing wt pls (ordered) Appreciate consult; will follow with you.
[2017-05-11] MEDS: LORAZEPAM 0.5 MG TAB PO PRN (13:57)
[2017-05-11] MEDS: TRAMADOL HCL 50 MG TAB PO PRN (14:32)
[2017-05-11 15:02] LABS: BUN/CREATININE RATIO 12.7 (10-20); CALCIUM 8.4 mg/dl (8.5-10.1); CREATININE 1.62 mg/dl (0.60-1.20); POTASSIUM 3.6 mmol/L (3.5-5.1)
--- NOTE | 2017-05-11 15:18 | DIAGNOSTIC IMAGING REPORT ---
CHEST 2 VIEWS ROUTINE CLINICAL HISTORY: Abnormal chest x-ray. Alcoholic cirrhosis. COMPARISON STUDY: Chest x-ray dated 04/09/2017 FINDINGS: The cardiac and mediastinal contours remain stable. There is a persistent left pleural effusion with associated left lower lobe atelectasis/consolidation. Rounded opacities of both lung bases are felt to represent nipple shadows. IMPRESSION: Persistent left pleural effusion with associated left lower lobe atelectasis/consolidation. Electronically signed by: Manuel Lou M.D. 05/11/2017 3:17 PM Dictated Date/Time: 05/11/2017 3:16 PM
[2017-05-11] MEDS: HYDROmorphone INJ 0.5 MG/0.5 ML SYR IV PRN ×2 (15:51→23:48)
[2017-05-11] MEDS: ALBUMIN 25% IV SCH ×4 (15:54→19:16)
[2017-05-11] MEDS: FUROSEMIDE IV SCH ×4 (15:54→19:16)
--- NOTE | 2017-05-11 17:27 | Progress Note ---
Medicine Progress Note Date & Time of Visit: May 11, 2017 at 11:20. Subjective Pt was seen and examined Lying in bed with no distress eating her meals Pt said that she feels slightly better She said that she has been watching her fluid intake She said that yesterday her belly distention seems to be worst Denies any palpitation, dizziness and SOB Objective Last 8 Hrs Date Time Temp Pulse Resp B/P (MAP) Pulse Ox O2 Delivery O2 Flow Rate FiO2 05/11/17 15:35 36.8 84 18 97/55 (69) 96 05/11/17 12:00 Room Air 05/11/17 11:26 36.6 87 19 113/62 (79) 96 Room Air Physical Exam: General- No acute distress Head- atraumatic Eyes- PERRL, EOMI ENT- oropharynx clear Neck- supple, no JVD Lungs- Decrease breath sound Heart- regular rhythm Abdomen- normal bowel sounds, +distention Extremities- + pedal edema, no calf tenderness Neuro- alert, oriented x 3; PERRL, EOMI; no facial palsy Skin- warm & dry Laboratory Results: Last 24 Hours Test 05/10/17 19:30 05/11/17 05:20 05/11/17 12:30 05/11/17 14:18 White Blood Count 7.46 K/uL 6.38 K/uL Red Blood Count 3.00 M/uL 2.33 M/uL Hemoglobin 9.2 g/dL 7.2 g/dL Hematocrit 26.8 % 21.0 % Mean Corpuscular Volume 89.3 fL 90.1 fL Mean Corpuscular Hemoglobin 30.7 pg 30.9 pg Mean Corpuscular Hemoglobin Concent 34.3 g/dl 34.3 g/dl Platelet Count 227 K/uL 191 K/uL Mean Platelet Volume 9.9 fL 9.7 fL Neutrophils (%) (Auto) 69.6 % 65.5 % Lymphocytes (%) (Auto) 15.1 % 10.7 % Monocytes (%) (Auto) 12.9 % 20.1 % Eosinophils (%) (Auto) 1.5 % 2.7 % Basophils (%) (Auto) 0.5 % 0.5 % Neutrophils # (Auto) 5.19 K/uL 4.19 K/uL Lymphocytes # (Auto) 1.13 K/uL 0.68 K/uL Monocytes # (Auto) 0.96 K/uL 1.28 K/uL Eosinophils # (Auto) 0.11 K/uL 0.17 K/uL Basophils # (Auto) 0.04 K/uL 0.03 K/uL RDW Standard Deviation 66.9 fL 67.5 fL RDW Coefficient of Variation 20.5 % 20.7 % Immature Granulocyte % (Auto) 0.4 % 0.5 % Immature Granulocyte # (Auto) 0.03 K/uL 0.03 K/uL Anisocytosis PRESENT PRESENT Acanthocytes 1+ 1+ Prothrombin Time 15.5 SECONDS Prothromb Time International Ratio 1.4 Activated Partial Thromboplast Time 40.3 SECONDS Partial Thromboplastin Ratio 1.5 Sodium Level 122 mmol/L 124 mmol/L Potassium Level 3.5 mmol/L 3.7 mmol/L Chloride Level 88 mmol/L 89 mmol/L Carbon Dioxide Level 22 mmol/L 25 mmol/L Anion Gap 12.0 mmol/L 10.0 mmol/L Blood Urea Nitrogen 18 mg/dl 20 mg/dl Creatinine 1.62 mg/dl 1.55 mg/dl Est Creatinine Clear Calc Drug Dose 43.3 ml/min 45.8 ml/min Estimated GFR () 41.3 43.5 Estimated GFR (Non- 35.6 37.6 BUN/Creatinine Ratio 11.0 12.7 Random Glucose 102 mg/dl 86 mg/dl Osmolality 255 mOsm/kg Calcium Level 9.0 mg/dl 8.6 mg/dl Magnesium Level 1.7 mg/dl 2.1 mg/dl Total Bilirubin 5.8 mg/dl 4.6 mg/dl Aspartate Amino Transf (AST/SGOT) 57 U/L 40 U/L Alanine Aminotransferase (ALT/SGPT) 23 U/L 19 U/L Alkaline Phosphatase 225 U/L 192 U/L Total Protein 6.9 gm/dl 6.0 gm/dl Albumin 3.5 gm/dl 3.2 gm/dl Globulin 3.4 gm/dl 2.8 gm/dl Albumin/Globulin Ratio 1.0 1.1 Chemistry Specimen Hemolysis Large Platelets 1+ Urine Osmolality 200 mOms/kg Urine Random Sodium 8 mEq/L Test 05/11/17 14:32 Sodium Level 123 mmol/L Potassium Level 3.6 mmol/L Chloride Level 91 mmol/L Carbon Dioxide Level 23 mmol/L Anion Gap 9.0 mmol/L Blood Urea Nitrogen 21 mg/dl Creatinine 1.62 mg/dl Est Creatinine Clear Calc Drug Dose 43.8 ml/min Estimated GFR () 41.3 Estimated GFR (Non- 35.6 BUN/Creatinine Ratio 12.7 Random Glucose 110 mg/dl Calcium Level 8.4 mg/dl Assessment & Plan HEPATIC CIRRHOSIS/ALCOHOLIC LIVER DISEASE : H/o portal HTN with bleeding varices s/p banding. Presented with abdominal distention and 10 lb weight gain over last month since discharge Last paracentesis about 1 week ago where 5L ascites fluid removed Was starting on lasix 40 mg BID, that changed to 30mg BID with albumin Spironolactone 25 mg BID Fluid restriction to 1.2 L and 2g Na restriction Continue Rifampin/Midodrine/Lactulose Gastro on board Will need Paracentesis done before discharge HYPONATREMIA Possible due to vol overload for decompensated cirrhosis Na on admission 122 Na level improved 124 Cont Lasix IV and fluid restriction. follow PRP Nephrology on board HX OF ETOH ABUSE Reports abstinence since November Pt is counselled to Continue strict ETOH abstinence GERD Protonix BID ANEMIA OF CHRONIC DISEASE : Hbg on admission 9.2 Hbg dropped to 7.2 No evidence of GI bleed D/C heparin subQ for DVT px Continue monitor cbc, transfuse prbc if Hb < 7 Electrolyte deficiencies Mg and K stable continue monitor electrolytes CKD stage 3 Continue monitor renal function with increased diuretics Nephrology on board Pleural Effusion CXR showed Persistent left pleural effusion with associated left lower lobe atelectasis/consolidation. Will reassess after the paracentesis Continue Lasix and spironolactone DVT PROPHYLAXIS D/C heparin subq due to drop in hgb Start on SCDs DISPOSITION CODE STATUS Full Code Statu Current Inpatient Medications: Current Inpatient Medications Medications (Trade) Dose Ordered Sig/Betty Route Start Time Stop Time Status Last Admin Dose Admin Heparin Sodium (Porcine) (Heparin Sq 5000 Unit/0.5ml) 5,000 unit Q8H SQ 05/10/17 22:00 06/09/17 21:59 05/11/17 13:53 5,000 UNIT Cholecalciferol (Vitamin D Tab) 800 inter.unit DAILY PO 05/11/17 09:00 06/10/17 08:59 05/11/17 07:59 800 INTER.UNIT Folic Acid (Folvite Tab) 1 mg QAM PO 05/11/17 09:00 06/10/17 08:59 05/11/17 07:58 1 MG Lactulose (Chronulac Syrup) 10 gm TID PO 05/10/17 21:00 06/09/17 20:59 05/11/17 13:55 10 GM Lorazepam (Ativan Tab) 0.5 mg BID PRN PO 05/10/17 19:00 06/09/17 18:59 05/11/17 13:57 0.5 MG Midodrine (Proamatine Tab) 7.5 mg TID@0800,1200,1600 PO 05/11/17 08:00 06/10/17 07:59 05/11/17 15:57 7.5 MG Multivitamins/ Minerals (Multivitamin W/ Minerals Tab) 1 tab DAILY PO 05/11/17 09:00 06/10/17 08:59 05/11/17 07:59 1 TAB Pantoprazole Sodium (Protonix Tab) 40 mg BID PO 05/10/17 21:00 06/09/17 20:59 05/11/17 07:59 40 MG Potassium Chloride (Klor-Con M10) 10 meq DAILY PO 05/11/17 09:00 06/10/17 08:59 05/11/17 07:59 10 MEQ Rifaximin (Xifaxan Tab) 550 mg BID PO 05/10/17 21:00 06/09/17 20:59 05/11/17 08:00 550 MG Spironolactone (Aldactone Tab) 25 mg BID17 PO 05/10/17 21:00 06/09/17 20:59 05/11/17 15:58 25 MG Thiamine HCl (Vitamin B-1 Tab) 100 mg Q24H PO 05/10/17 21:00 06/09/17 20:59 05/10/17 21:21 100 MG Tramadol HCl (Ultram Tab) 50 mg BID PRN PO 05/10/17 20:45 06/09/17 20:44 05/11/17 14:32 50 MG Hydromorphone HCl (Dilaudid Inj) 0.5 mg Q4H PRN IV 05/10/17 22:15 05/24/17 22:14 05/11/17 15:51 0.5 MG Furosemide 30 mg/ Albumin Human 53 ml @ 60 mls/hr TID@0600,1200,1800 IV 05/12/17 06:00 05/15/17 05:59 Furosemide 30 mg/ Albumin Human 53 ml @ 60 mls/hr TODAY@1500,1900 IV 05/11/17 15:00 05/11/17 19:52 05/11/17 15:54 60 MLS/HR
[2017-05-11] MEDS: THIAMINE HCL 100 MG TAB PO SCH (20:38)
[2017-05-12 03:03] VITALS: BP 90/44; PULSE 88; TEMP 37.1; O2SAT 94
[2017-05-12 03:43] LABS: URINE APPEARANCE CLOUDY (CLEAR); URINE COLOR DK YELLOW; URINE EPITHELIAL CELL AUTO >30 /lpf (0-5); URINE NITRITE NEG (NEG); URINE SPECIFIC GRAVITY 1.016 (1.000-1.030); UROBILINOGEN NEG (NEG); ZZUR CULT IF INDIC CLEAN CATCH YES
[2017-05-12 03:45] LABS: MANUAL MICROSCOPIC REQUIRED? NO; REVIEW REQ? YES
[2017-05-12 04:10] LABS: URINE BILIRUBIN NEG (NEG)
[2017-05-12] MEDS: ALBUMIN 25% IV SCH ×6 (05:41→18:17)
[2017-05-12] MEDS: FUROSEMIDE IV SCH ×6 (05:41→18:17)
[2017-05-12 06:30] LABS: HEMATOCRIT 20.7 % (37-47); MEAN CORPUSCULAR HEMOGLOBIN 31.3 pg (25-34); MEAN CORPUSCULAR HGB CONC 34.8 g/dl (32-36); PLATELET COUNT 192 K/uL (130-400); WHITE BLOOD COUNT 7.03 K/uL (4.8-10.8)
[2017-05-12 06:47] LABS: BUN/CREATININE RATIO 12.3 (10-20); CALCIUM 8.6 mg/dl (8.5-10.1); CREATININE 1.83 mg/dl (0.60-1.20); POTASSIUM 3.7 mmol/L (3.5-5.1)
[2017-05-12 08:05] VITALS: BP 92/50; PULSE 86; TEMP 36.7; O2SAT 93
[2017-05-12] MEDS: MIDODRINE 2.5 MG TAB PO SCH ×3 (08:29→16:18)
[2017-05-12] MEDS: LACTULOSE SYRUP 10 GM/15 ML BTL 473 ML PO SCH ×2 (08:30→13:22)
[2017-05-12] MEDS: SPIRONOLACTONE 25 MG TAB PO SCH ×2 (08:30→16:18)
[2017-05-12] MEDS: CEROVITE ADV FORMULA TAB PO SCH (08:31)
[2017-05-12] MEDS: POTASSIUM CHLORIDE 10 MEQ TABCR PO SCH (08:31)
[2017-05-12] MEDS: CHOLECALCIFEROL 400 INTER.UNIT TAB PO SCH (08:31)
[2017-05-12] MEDS: RIFAXIMIN TAB 550 MG TAB PO SCH ×2 (08:31→20:18)
[2017-05-12] MEDS: PANTOprazole SOD 40 MG TAB PO SCH ×2 (08:31→20:17)
[2017-05-12] MEDS: HYDROmorphone INJ 0.5 MG/0.5 ML SYR IV PRN ×2 (11:21→17:29)
[2017-05-12 11:37] VITALS: BP 93/51; PULSE 80; TEMP 36.6; O2SAT 95
[2017-05-12] MEDS: TRAMADOL HCL 50 MG TAB PO PRN (13:21)
--- NOTE | 2017-05-12 14:32 | Progress Note ---
Medicine Progress Note Date & Time of Visit: May 12, 2017 at 11:11. Subjective Pt was seen and examined Lying in bed with no distress Pt said that she has not had a BM since admitting She said that her abdomen feels distended Pt said that she does have SOB with exertion Denies any chest pain, palpitation, dizziness Objective Last 8 Hrs Date Time Temp Pulse Resp B/P (MAP) Pulse Ox O2 Delivery O2 Flow Rate FiO2 05/12/17 12:00 Room Air 05/12/17 11:37 36.6 80 18 93/51 (65) 95 Room Air 05/12/17 08:05 36.7 86 18 92/50 (64) 93 Room Air 05/12/17 08:00 Room Air Physical Exam: General- No acute distress Head- atraumatic Eyes- PERRL, EOMI ENT- oropharynx clear Neck- supple, no JVD Lungs- Decrease breath sound L>R Heart- regular rhythm Abdomen- normal bowel sounds, +distention Extremities- + pedal edema, no calf tenderness Neuro- alert, oriented x 3; PERRL, EOMI; no facial palsy Skin- warm & dry Laboratory Results: Last 24 Hours Test 05/11/17 14:32 05/12/17 03:15 05/12/17 05:20 Sodium Level 123 mmol/L 123 mmol/L Potassium Level 3.6 mmol/L 3.7 mmol/L Chloride Level 91 mmol/L 88 mmol/L Carbon Dioxide Level 23 mmol/L 26 mmol/L Anion Gap 9.0 mmol/L 8.0 mmol/L Blood Urea Nitrogen 21 mg/dl 23 mg/dl Creatinine 1.62 mg/dl 1.83 mg/dl Est Creatinine Clear Calc Drug Dose 43.8 ml/min 39.1 ml/min Estimated GFR () 41.3 35.6 Estimated GFR (Non- 35.6 30.7 BUN/Creatinine Ratio 12.7 12.3 Random Glucose 110 mg/dl 87 mg/dl Calcium Level 8.4 mg/dl 8.6 mg/dl Urine Color DK YELLOW Urine Appearance CLOUDY Urine pH 5.0 Urine Specific [place]st 1.016 Urine Protein NEG Urine Glucose (UA) NEG Urine Ketones TRACE Urine Occult Blood NEG Urine Nitrite NEG Urine Bilirubin NEG Urine Urobilinogen NEG Urine Leukocyte Esterase TRACE Urine WBC (Auto) 1-5 /hpf Urine RBC (Auto) 0-4 /hpf Urine Hyaline Casts (Auto) 10-30 /lpf Urine Epithelial Cells (Auto) >30 /lpf Urine Bacteria (Auto) NEG Urine Pathogenic Casts /lpf Urine Yeast (Auto) White Blood Count 7.03 K/uL Red Blood Count 2.30 M/uL Hemoglobin 7.2 g/dL Hematocrit 20.7 % Mean Corpuscular Volume 90.0 fL Mean Corpuscular Hemoglobin 31.3 pg Mean Corpuscular Hemoglobin Concent 34.8 g/dl RDW Standard Deviation 68.4 fL RDW Coefficient of Variation 20.7 % Platelet Count 192 K/uL Mean Platelet Volume 10.0 fL Date/Time Source Procedure Growth Status 05/12/17 03:15 Urine , Clean Catch Urine Culture Pending Received Assessment & Plan HEPATIC CIRRHOSIS/ALCOHOLIC LIVER DISEASE : H/o portal HTN with bleeding varices s/p banding. Presented with abdominal distention and 10 lb weight gain over last month since discharge Last paracentesis about 1 week ago where 5L ascites fluid removed Yesterday Starting on lasix 30 mg TID with albumin Spironolactone 25 mg BID Fluid restriction to 1.2 L and 2g Na restriction Continue Rifampin/Midodrine/Lactulose Gastro on board Will get paracentesis done in am continue monitor HYPONATREMIA Possible due to vol overload for decompensated cirrhosis Na on admission 122 Na level 123 today On IV Lasix and fluid restriction. follow PRP Nephrology on board HX OF ETOH ABUSE Reports abstinence since November Pt is counselled to Continue strict ETOH abstinence GERD Protonix BID ANEMIA OF CHRONIC DISEASE : Hbg on admission 9.2 Hbg dropped to 7.2 No evidence of GI bleed D/C heparin subQ for DVT px Continue monitor cbc, transfuse prbc if Hb < 7 Electrolyte deficiencies Mg and K stable continue monitor electrolytes CKD stage 3 Creatine increase to 1.8 On lasix 30mg TID Case discussed with Nephrology recommended to continue current lasix dose If creatine worsening, will decrease lasix tomorrow Continue monitor BMP Nephrology on board Pleural Effusion CXR showed Persistent left pleural effusion with associated left lower lobe atelectasis/consolidation. Will reassess after the paracentesis Continue Lasix and spironolactone Abdullahi get a CT chest tomorrow DVT PROPHYLAXIS D/C heparin subq due to drop in hgb Start on SCDs DISPOSITION CODE STATUS Full Code Statu Consultants: Nephrology Gastro Current Inpatient Medications: Current Inpatient Medications Medications (Trade) Dose Ordered Sig/Betty Route Start Time Stop Time Status Last Admin Dose Admin Cholecalciferol (Vitamin D Tab) 800 inter.unit DAILY PO 05/11/17 09:00 06/10/17 08:59 05/12/17 08:31 800 INTER.UNIT Folic Acid (Folvite Tab) 1 mg QAM PO 05/11/17 09:00 06/10/17 08:59 05/12/17 08:30 1 MG Lactulose (Chronulac Syrup) 10 gm TID PO 05/10/17 21:00 06/09/17 20:59 05/12/17 13:22 10 GM Lorazepam (Ativan Tab) 0.5 mg BID PRN PO 05/10/17 19:00 06/09/17 18:59 05/11/17 13:57 0.5 MG Midodrine (Proamatine Tab) 7.5 mg TID@0800,1200,1600 PO 05/11/17 08:00 06/10/17 07:59 05/12/17 12:05 7.5 MG Multivitamins/ Minerals (Multivitamin W/ Minerals Tab) 1 tab DAILY PO 05/11/17 09:00 06/10/17 08:59 05/12/17 08:31 1 TAB Pantoprazole Sodium (Protonix Tab) 40 mg BID PO 05/10/17 21:00 06/09/17 20:59 05/12/17 08:31 40 MG Potassium Chloride (Klor-Con M10) 10 meq DAILY PO 05/11/17 09:00 06/10/17 08:59 05/12/17 08:31 10 MEQ Rifaximin (Xifaxan Tab) 550 mg BID PO 05/10/17 21:00 06/09/17 20:59 05/12/17 08:31 550 MG Spironolactone (Aldactone Tab) 25 mg BID17 PO 05/10/17 21:00 06/09/17 20:59 05/12/17 08:30 25 MG Thiamine HCl (Vitamin B-1 Tab) 100 mg Q24H PO 05/10/17 21:00 06/09/17 20:59 05/11/17 20:38 100 MG Tramadol HCl (Ultram Tab) 50 mg BID PRN PO 05/10/17 20:45 06/09/17 20:44 05/12/17 13:21 50 MG Hydromorphone HCl (Dilaudid Inj) 0.5 mg Q4H PRN IV 05/10/17 22:15 05/24/17 22:14 05/12/17 11:21 0.5 MG Furosemide 30 mg/ Albumin Human 53 ml @ 60 mls/hr TID@0600,1200,1800 IV 05/12/17 06:00 05/15/17 05:59 05/12/17 12:01 60 MLS/HR
[2017-05-12 15:30] VITALS: BP 99/60; PULSE 82; TEMP 36.8; O2SAT 94
[2017-05-12] MEDS ORDERED: ONDANSETRON INJ 2 MG/ML 2 ML VIAL ONE (18:15)
[2017-05-12] MEDS: ONDANSETRON INJ 2 MG/ML 2 ML VIAL IV. SCH (19:00)
[2017-05-12 20:13] VITALS: BP 107/57; PULSE 82; TEMP 37; O2SAT 93
[2017-05-12] MEDS: THIAMINE HCL 100 MG TAB PO SCH (20:17)
[2017-05-12] MEDS: LACTULOSE SYRUP 20 GM/30 ML UDC PO SCH (20:17)
[2017-05-12 23:15] VITALS: BP 115/54; PULSE 84; TEMP 37; O2SAT 96
[2017-05-13] VITALS (9 sets, daily range): BP systolic 99–119; BP diastolic 45–68; PULSE 71–99; TEMP 36.5–36.8; O2SAT 94–96
[2017-05-13] MEDS: ONDANSETRON INJ 2 MG/ML 2 ML VIAL IV. SCH ×4 (00:16→20:09)
[2017-05-13] MEDS: HYDROmorphone INJ 0.5 MG/0.5 ML SYR IV PRN ×3 (00:17→20:09)
[2017-05-13] MEDS: LORAZEPAM 0.5 MG TAB PO PRN ×3 (03:30→13:45)
[2017-05-13] MEDS: ALBUMIN 25% IV SCH ×4 (06:16→12:00)
[2017-05-13] MEDS: FUROSEMIDE IV SCH ×4 (06:16→12:00)
[2017-05-13 06:22] LABS: HEMATOCRIT 20.1 % (37-47); MEAN CELL VOLUME 90.5 fL (80-100); MEAN CORPUSCULAR HEMOGLOBIN 31.1 pg (25-34); MEAN CORPUSCULAR HGB CONC 34.3 g/dl (32-36); MEAN PLATELET VOLUME 9.9 fL (7.4-10.4); PLATELET COUNT 161 K/uL (130-400); RED BLOOD COUNT 2.22 M/uL (4.2-5.4); WHITE BLOOD COUNT 4.19 K/uL (4.8-10.8)
[2017-05-13 06:38] LABS: BUN/CREATININE RATIO 13.8 (10-20); CALCIUM 8.6 mg/dl (8.5-10.1); CREATININE 1.67 mg/dl (0.60-1.20); POTASSIUM 3.7 mmol/L (3.5-5.1)
[2017-05-13] MEDS: MIDODRINE 2.5 MG TAB PO SCH ×3 (07:17→15:33)
[2017-05-13] MEDS: SPIRONOLACTONE 25 MG TAB PO SCH (07:17)
[2017-05-13] MEDS: RIFAXIMIN TAB 550 MG TAB PO SCH ×2 (07:18→19:56)
[2017-05-13] MEDS: LACTULOSE SYRUP 20 GM/30 ML UDC PO SCH ×3 (07:18→19:57)
[2017-05-13] MEDS: CHOLECALCIFEROL 400 INTER.UNIT TAB PO SCH (07:18)
[2017-05-13] MEDS: POTASSIUM CHLORIDE 10 MEQ TABCR PO SCH (07:19)
[2017-05-13] MEDS: PANTOprazole SOD 40 MG TAB PO SCH ×2 (07:19→19:57)
[2017-05-13] MEDS: CEROVITE ADV FORMULA TAB PO SCH (07:19)
--- NOTE | 2017-05-13 10:20 | DIAGNOSTIC IMAGING REPORT ---
ULTRASOUND-GUIDED THERAPEUTIC PARACENTESIS: HISTORY: Ascites. Procedure: The procedure and its risks, benefits and alternatives were discussed with the patient and written informed consent was obtained. Preliminary ultrasound of the abdomen was performed to determine a safe needle entry site. The right lower quadrant was prepped and draped in the usual sterile fashion. 1% Lidocaine was used for local anesthesia. A paracentesis needle-sheath was inserted into the peritoneal space using ultrasound guidance. The needle was removed and the sheath was connected to tubing and a vacuum suction device. A total of 6 liters of yellow ascites was aspirated. The sheath was removed and a sterile dressing applied. The patient experienced a small of cramping pain at the catheter site. However, this resides following removal of the catheter and there were no immediate complications. IMPRESSION: Ultrasound-guided therapeutic paracentesis with aspiration of 6 liters of ascites. Electronically signed by: Michael De Leon M.D. 05/13/2017 10:18 AM Dictated Date/Time: 05/13/2017 10:17 AM
[2017-05-13] MEDS ORDERED: ALBUMIN HUMAN 25% 12.5 GM/50 ML VIAL IV ONE (14:30)
--- NOTE | 2017-05-13 14:44 | Progress Note ---
Medicine Progress Note Date & Time of Visit: May 13, 2017 at 11:31. Subjective Pt was seen and examined Lying in bed with no distress Pt had paracentesis done this morning where 6L ascites fluid removed Pt said that she feels better today Her SOB seems to improve with exertion and does not wheeze anymore She had a BM today Denies any chest pain, palpitation, dizziness and SOB Objective Last 8 Hrs Date Time Temp Pulse Resp B/P (MAP) Pulse Ox O2 Delivery O2 Flow Rate FiO2 05/13/17 12:18 36.5 71 18 109/68 (82) 95 05/13/17 12:03 96 Room Air 05/13/17 08:47 96 Room Air 05/13/17 08:29 36.5 89 20 112/66 (81) 94 Room Air Physical Exam: General- No acute distress Head- atraumatic Eyes- PERRL, EOMI ENT- oropharynx clear Neck- supple, no JVD Lungs- Decrease breath sound L>R Heart- regular rhythm Abdomen- normal bowel sounds, +distention Extremities- + pedal edema, no calf tenderness Neuro- alert, oriented x 3; PERRL, EOMI; no facial palsy Skin- warm & dry Laboratory Results: Last 24 Hours Test 05/13/17 05:13 05/13/17 09:17 White Blood Count 4.19 K/uL Red Blood Count 2.22 M/uL Hemoglobin 6.9 g/dL Hematocrit 20.1 % Mean Corpuscular Volume 90.5 fL Mean Corpuscular Hemoglobin 31.1 pg Mean Corpuscular Hemoglobin Concent 34.3 g/dl RDW Standard Deviation 68.1 fL RDW Coefficient of Variation 20.6 % Platelet Count 161 K/uL Mean Platelet Volume 9.9 fL Sodium Level 125 mmol/L Potassium Level 3.7 mmol/L Chloride Level 91 mmol/L Carbon Dioxide Level 24 mmol/L Anion Gap 10.0 mmol/L Blood Urea Nitrogen 23 mg/dl Creatinine 1.67 mg/dl Est Creatinine Clear Calc Drug Dose 42.8 ml/min Estimated GFR () 39.8 Estimated GFR (Non- 34.3 BUN/Creatinine Ratio 13.8 Random Glucose 75 mg/dl Calcium Level 8.6 mg/dl Assessment & Plan HEPATIC CIRRHOSIS/ALCOHOLIC LIVER DISEASE : H/o portal HTN with bleeding varices s/p banding. Presented with abdominal distention and 10 lb weight gain over last month since discharge Last paracentesis about 1 week ago where 5L ascites fluid removed Yesterday Starting on lasix 30 mg TID with albumin Spironolactone 25 mg BID Fluid restriction to 1.2 L and 2g Na restriction Continue Rifampin/Midodrine/Lactulose Gastro on board Will get paracentesis done in am continue monitor 05/13 S/P paracentesis where 6 liter ascites fluid removed Albumin given before and after paracentesis Continue 1.2 L fluid restriction and 2 gNa diet Continue Rifampin/Midodrine/Lactulose Will hold further lasix dose today after the paracentesis HYPONATREMIA Possible due to vol overload for decompensated cirrhosis Na on admission 122 Na level 125 today Continue fluid restriction. Hold futhe dose of lasix for today follow PRP Nephrology on board case discussed with Oncology Physician Assistant HX OF ETOH ABUSE Reports abstinence since November Pt is counselled to Continue strict ETOH abstinence GERD Protonix BID ANEMIA OF CHRONIC DISEASE : Hbg on admission 9.2 Hbg dropped to 6.9 No evidence of GI bleed D/C heparin subQ for DVT px Continue monitor cbc, transfuse prbc if Hb < 7 will check h/h at 1800 Electrolyte deficiencies Mg and K stable continue monitor electrolytes CKD stage 3 Creatine increase to 1.8 On lasix 30mg TID Case discussed with Nephrology recommended to continue current lasix dose If creatine worsening, will decrease lasix tomorrow Continue monitor BMP Nephrology on board 05/13 Creatine 1.6 today Hold additional Lasix and spironolactone dose today since pt had paracentesis done this morning Continue monitor BMP Pleural Effusion CXR showed Persistent left pleural effusion with associated left lower lobe atelectasis/consolidation. Will reassess after the paracentesis Continue Lasix and spironolactone CT chest without contrast ordered DVT PROPHYLAXIS D/C heparin subq due to drop in hgb Start on SCDs DISPOSITION CODE STATUS Full Code Statu Consultants: Nephrology Gastro Current Inpatient Medications: Current Inpatient Medications Medications (Trade) Dose Ordered Sig/Betty Route Start Time Stop Time Status Last Admin Dose Admin Cholecalciferol (Vitamin D Tab) 800 inter.unit DAILY PO 05/11/17 09:00 06/10/17 08:59 05/13/17 07:18 800 INTER.UNIT Folic Acid (Folvite Tab) 1 mg QAM PO 05/11/17 09:00 06/10/17 08:59 05/13/17 07:17 1 MG Lorazepam (Ativan Tab) 0.5 mg BID PRN PO 05/10/17 19:00 06/09/17 18:59 05/13/17 13:45 0.5 MG Midodrine (Proamatine Tab) 7.5 mg TID@0800,1200,1600 PO 05/11/17 08:00 06/10/17 07:59 05/13/17 11:49 7.5 MG Multivitamins/ Minerals (Multivitamin W/ Minerals Tab) 1 tab DAILY PO 05/11/17 09:00 06/10/17 08:59 05/13/17 07:19 1 TAB Pantoprazole Sodium (Protonix Tab) 40 mg BID PO 05/10/17 21:00 06/09/17 20:59 05/13/17 07:19 40 MG Potassium Chloride (Klor-Con M10) 10 meq DAILY PO 05/11/17 09:00 06/10/17 08:59 05/13/17 07:19 10 MEQ Rifaximin (Xifaxan Tab) 550 mg BID PO 05/10/17 21:00 06/09/17 20:59 05/13/17 07:18 550 MG Spironolactone (Aldactone Tab) 25 mg BID17 PO 05/10/17 21:00 06/09/17 20:59 05/13/17 07:17 25 MG Thiamine HCl (Vitamin B-1 Tab) 100 mg Q24H PO 05/10/17 21:00 06/09/17 20:59 05/12/17 20:17 100 MG Tramadol HCl (Ultram Tab) 50 mg BID PRN PO 05/10/17 20:45 06/09/17 20:44 05/12/17 13:21 50 MG Hydromorphone HCl (Dilaudid Inj) 0.5 mg Q4H PRN IV 05/10/17 22:15 05/24/17 22:14 05/13/17 07:29 0.5 MG Furosemide 30 mg/ Albumin Human 53 ml @ 60 mls/hr TID@0600,1200,1800 IV 05/12/17 06:00 05/15/17 05:59 05/13/17 06:16 60 MLS/HR Lactulose (Chronulac Syrup) 20 gm TID PO 05/12/17 21:00 06/09/17 20:59 05/13/17 13:32 20 GM Ondansetron HCl (Zofran Inj) 4 mg Q6H IV. 05/12/17 19:00 06/11/17 18:59 05/13/17 11:49 4 MG
--- NOTE | 2017-05-13 16:55 | DIAGNOSTIC IMAGING REPORT ---
(CHEST) THORAX WITHOUT CT DOSE: 546.84 mGy.cm HISTORY: Pleural effusion Left pleural effusion TECHNIQUE: Multiaxial CT images of the chest were performed without contrast. A dose lowering technique was utilized adhering to the principles of ALARA. COMPARISON: 02/22/2017 FINDINGS: Large left pleural effusion. This is slightly increased in volume from the prior study. Consolidative change left lower lobe with associated atelectatic change. This perhaps is progressive. Very small pericardial effusion. Right lung is considered generally clear. Trace amount of posterior pleural thickening unchanged from the prior study. No significant mediastinal or hilar adenopathy within limitations of an unenhanced scan. Findings consistent with hepatic cirrhosis as well as upper abdominal ascites. Findings of progressive lower thoracic chest sidewall as well as abdominal wall anasarca. These findings are progressive. IMPRESSION: 1. Relatively large left pleural effusion slightly increased in volume from the prior study.. 2. Left lower lobe atelectasis. 3. Right lung is considered generally clear. 4. Body wall anasarca progressive. 5. Upper abdominal ascites and hepatic cirrhosis which have been described previously. The above report was generated using voice recognition software. It may contain grammatical, syntax or spelling errors. Electronically signed by: Mirza Spain M.D. 05/13/2017 4:53 PM Dictated Date/Time: 05/13/2017 4:48 PM
--- NOTE | 2017-05-13 17:26 | Gastroenterology Progress Note ---
Progress Note Date of Service: May 13, 2017 Subjective Pt evaluation today including: conversation w/ patient, physical exam, chart review, lab review, review of studies, review of inpatient medication list Ms. Licona is a 52 yr old female with hx of alcoholic cirrhosis having abstained since November 2016. She was admitted for enlarging ascites and worsening renal function (cr 1.76 on arrival, up from 0.9 baseline). Today's Cr 1.67, slightly improved from admission. On Midodrin 7.5mg TID Receiving Lasix with albumin (managed by nephrology). Being followed by Nephrology, having received albumin and lasix. Underwent second paracentesis today, 6 L removed (cell count pending). Has been receiving albumin 25 grams QID until today. Received a total of three 25gram doses today) Pt c/o pain during the paracentesis but feels well now. Eating well (low salt diet). Review of Systems Constitutional: No fever ENT: No hearing loss Respiratory: No cough Cardiac: No chest pain Abdomen: + problem reported (ascites), No pain, No nausea, No vomiting, No diarrhea, No constipation, No GI bleeding Female : No dysuria Neuro: No memory loss Psych: No depression symptoms Heme: No abnormal bleeding/bruising Endo: No fatigue Skin: No rash Medications Current Inpatient Medications Medications (Trade) Dose Ordered Sig/Betty Route Start Time Stop Time Status Last Admin Dose Admin Cholecalciferol (Vitamin D Tab) 800 inter.unit DAILY PO 05/11/17 09:00 06/10/17 08:59 05/13/17 07:18 800 INTER.UNIT Folic Acid (Folvite Tab) 1 mg QAM PO 05/11/17 09:00 06/10/17 08:59 05/13/17 07:17 1 MG Lorazepam (Ativan Tab) 0.5 mg BID PRN PO 05/10/17 19:00 06/09/17 18:59 05/13/17 13:45 0.5 MG Midodrine (Proamatine Tab) 7.5 mg TID@0800,1200,1600 PO 05/11/17 08:00 06/10/17 07:59 05/13/17 15:33 7.5 MG Multivitamins/ Minerals (Multivitamin W/ Minerals Tab) 1 tab DAILY PO 05/11/17 09:00 06/10/17 08:59 05/13/17 07:19 1 TAB Pantoprazole Sodium (Protonix Tab) 40 mg BID PO 05/10/17 21:00 06/09/17 20:59 05/13/17 07:19 40 MG Potassium Chloride (Klor-Con M10) 10 meq DAILY PO 05/11/17 09:00 06/10/17 08:59 05/13/17 07:19 10 MEQ Rifaximin (Xifaxan Tab) 550 mg BID PO 05/10/17 21:00 06/09/17 20:59 05/13/17 07:18 550 MG Spironolactone (Aldactone Tab) 25 mg BID17 PO 05/10/17 21:00 06/09/17 20:59 Future Hold 05/13/17 07:17 25 MG Thiamine HCl (Vitamin B-1 Tab) 100 mg Q24H PO 05/10/17 21:00 06/09/17 20:59 05/12/17 20:17 100 MG Tramadol HCl (Ultram Tab) 50 mg BID PRN PO 05/10/17 20:45 06/09/17 20:44 05/12/17 13:21 50 MG Hydromorphone HCl (Dilaudid Inj) 0.5 mg Q4H PRN IV 05/10/17 22:15 05/24/17 22:14 05/13/17 07:29 0.5 MG Furosemide 30 mg/ Albumin Human 53 ml @ 60 mls/hr TID@0600,1200,1800 IV 05/12/17 06:00 05/15/17 05:59 Future Hold 05/13/17 06:16 60 MLS/HR Lactulose (Chronulac Syrup) 20 gm TID PO 05/12/17 21:00 06/09/17 20:59 05/13/17 13:32 20 GM Ondansetron HCl (Zofran Inj) 4 mg Q6H IV. 05/12/17 19:00 06/11/17 18:59 05/13/17 11:49 4 MG Objective Vital Signs Date Time Temp Pulse Resp B/P (MAP) Pulse Ox O2 Delivery O2 Flow Rate FiO2 05/13/17 16:34 96 Room Air 05/13/17 16:15 36.7 91 18 108/55 (72) 96 Room Air 05/13/17 12:18 36.5 71 18 109/68 (82) 95 05/13/17 12:03 96 Room Air 05/13/17 08:47 96 Room Air 05/13/17 08:29 36.5 89 20 112/66 (81) 94 Room Air 05/13/17 04:00 Room Air 05/13/17 03:45 36.6 85 18 99/54 (69) 96 Room Air 05/13/17 00:26 Room Air 05/12/17 23:15 37.0 84 16 115/54 (74) 96 Room Air 05/12/17 20:17 Room Air 05/12/17 20:13 37.0 82 18 107/57 (74) 93 Physical Exam General Appearance: no apparent distress Neck: no adenopathy, no JVD Respiratory/Chest: lungs clear Cardiovascular: regular rate, rhythm, no JVD, no murmur Abdomen: non tender, soft, + distended (with ascites) Neurologic/Psych: alert, normal mood/affect, oriented x 3 Skin: no jaundice, + pertinent finding (spider angiomas) Laboratory Results Last 24 Hours Test 05/13/17 05:13 05/13/17 09:17 White Blood Count 4.19 K/uL Red Blood Count 2.22 M/uL Hemoglobin 6.9 g/dL Hematocrit 20.1 % Mean Corpuscular Volume 90.5 fL Mean Corpuscular Hemoglobin 31.1 pg Mean Corpuscular Hemoglobin Concent 34.3 g/dl RDW Standard Deviation 68.1 fL RDW Coefficient of Variation 20.6 % Platelet Count 161 K/uL Mean Platelet Volume 9.9 fL Sodium Level 125 mmol/L Potassium Level 3.7 mmol/L Chloride Level 91 mmol/L Carbon Dioxide Level 24 mmol/L Anion Gap 10.0 mmol/L Blood Urea Nitrogen 23 mg/dl Creatinine 1.67 mg/dl Est Creatinine Clear Calc Drug Dose 42.8 ml/min Estimated GFR () 39.8 Estimated GFR (Non- 34.3 BUN/Creatinine Ratio 13.8 Random Glucose 75 mg/dl Calcium Level 8.6 mg/dl Assessment and Plan Ms. Licona is a 52 yr old female with alcoholic cirrhosis abstaining from alcohol x 5 months. Now with worsening of kidney function and increasing ascites MELD: 28. 1. Difficult to manage ascites with diuretics due to worsening of kidney function. Appreciate nephrology who has ordered albumin, lasix during this admission. 2. Pt has liver transplant eval appt later this week. She is <6 months month abstention so not a candidate for a transplant now - but will be soon 3. 2 gram sodium diet. 4. Consider RBC transfusion if Hb becomes lower. 5. Will review ascites cell count when available. 6. Will continue to follow . I performed a history and physical examination of the patient. I have discussed the patient's case, impression and plan with WILBERT Hernández on 05/13/2017. Her note reflects my findings and plan. Doing well s/p paracentesis. Follow electrolytes. Chris Rico MD
--- NOTE | 2017-05-13 17:33 | Nephrology Progress Note ---
Nephrology Progress Note Date of Service: May 13, 2017. Subjective had 6L tap today on abdomen; seen on rounds at 1020; CT from late afternoon w/ enlarging L pleural effusion and possible L base pneumonia; no pain, no n/v; states she wishes they took more fluid off w/ tap; denies voiding sx or chest pain or dyspnea Objective Date Time Temp Pulse Resp B/P (MAP) Pulse Ox O2 Delivery O2 Flow Rate FiO2 05/13/17 08:47 96 Room Air 05/13/17 04:00 Room Air 05/13/17 03:45 36.6 85 18 99/54 (69) 96 Room Air 05/13/17 00:26 Room Air 05/12/17 23:15 37.0 84 16 115/54 (74) 96 Room Air 05/12/17 20:17 Room Air 05/12/17 20:13 37.0 82 18 107/57 (74) 93 05/12/17 16:00 Room Air 05/12/17 15:30 36.8 82 18 99/60 (73) 94 05/12/17 12:00 Room Air 05/12/17 11:37 36.6 80 18 93/51 (65) 95 Room Air Physical Exam: General Appearance: WD/WN, + no distress (on ra; not noticeably w/ slightly increased wob and dyspnea as on other exam) Eyes: EOMI, + pertinent finding (icteric sclerae) ENT: hearing grossly normal Neck: supple Respiratory/Chest: + decreased breath sounds jose luis on L; today no wheezing Cardiovascular: regular rate, rhythm, + pertinent finding (edema 2+ less taut) Abdomen: normal bowel sounds, non tender, soft, + pertinent finding (a bit less ascites/still marked distension) Extremities: + pedal edema, + swelling Neurologic/Psych: alert, normal mood/affect, oriented x 3 Skin: warm/dry, no rash, + jaundice Current Inpatient Medications Medications (Trade) Dose Ordered Sig/Betty Route Start Time Stop Time Status Last Admin Dose Admin Cholecalciferol (Vitamin D Tab) 800 inter.unit DAILY PO 05/11/17 09:00 06/10/17 08:59 05/13/17 07:18 800 INTER.UNIT Folic Acid (Folvite Tab) 1 mg QAM PO 05/11/17 09:00 06/10/17 08:59 05/13/17 07:17 1 MG Lorazepam (Ativan Tab) 0.5 mg BID PRN PO 05/10/17 19:00 06/09/17 18:59 05/13/17 03:30 0.5 MG Midodrine (Proamatine Tab) 7.5 mg TID@0800,1200,1600 PO 05/11/17 08:00 06/10/17 07:59 05/13/17 07:17 7.5 MG Multivitamins/ Minerals (Multivitamin W/ Minerals Tab) 1 tab DAILY PO 05/11/17 09:00 06/10/17 08:59 05/13/17 07:19 1 TAB Pantoprazole Sodium (Protonix Tab) 40 mg BID PO 05/10/17 21:00 06/09/17 20:59 05/13/17 07:19 40 MG Potassium Chloride (Klor-Con M10) 10 meq DAILY PO 05/11/17 09:00 06/10/17 08:59 05/13/17 07:19 10 MEQ Rifaximin (Xifaxan Tab) 550 mg BID PO 05/10/17 21:00 06/09/17 20:59 05/13/17 07:18 550 MG Spironolactone (Aldactone Tab) 25 mg BID17 PO 05/10/17 21:00 06/09/17 20:59 05/13/17 07:17 25 MG Thiamine HCl (Vitamin B-1 Tab) 100 mg Q24H PO 05/10/17 21:00 06/09/17 20:59 05/12/17 20:17 100 MG Tramadol HCl (Ultram Tab) 50 mg BID PRN PO 05/10/17 20:45 06/09/17 20:44 05/12/17 13:21 50 MG Hydromorphone HCl (Dilaudid Inj) 0.5 mg Q4H PRN IV 05/10/17 22:15 05/24/17 22:14 05/13/17 07:29 0.5 MG Furosemide 30 mg/ Albumin Human 53 ml @ 60 mls/hr TID@0600,1200,1800 IV 05/12/17 06:00 05/15/17 05:59 05/13/17 06:16 60 MLS/HR Lactulose (Chronulac Syrup) 20 gm TID PO 05/12/17 21:00 06/09/17 20:59 05/13/17 07:18 20 GM Ondansetron HCl (Zofran Inj) 4 mg Q6H IV. 05/12/17 19:00 06/11/17 18:59 05/13/17 07:17 4 MG Last 24 Hours Test 05/13/17 05:13 White Blood Count 4.19 K/uL Red Blood Count 2.22 M/uL Hemoglobin 6.9 g/dL Hematocrit 20.1 % Mean Corpuscular Volume 90.5 fL Mean Corpuscular Hemoglobin 31.1 pg Mean Corpuscular Hemoglobin Concent 34.3 g/dl RDW Standard Deviation 68.1 fL RDW Coefficient of Variation 20.6 % Platelet Count 161 K/uL Mean Platelet Volume 9.9 fL Sodium Level 125 mmol/L Potassium Level 3.7 mmol/L Chloride Level 91 mmol/L Carbon Dioxide Level 24 mmol/L Anion Gap 10.0 mmol/L Blood Urea Nitrogen 23 mg/dl Creatinine 1.67 mg/dl Est Creatinine Clear Calc Drug Dose 42.8 ml/min Estimated GFR () 39.8 Estimated GFR (Non- 34.3 BUN/Creatinine Ratio 13.8 Random Glucose 75 mg/dl Calcium Level 8.6 mg/dl Assessment & Plan 52 y/o F w/ 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 Presenting sNa 122; up to 124 this am. massive volume overload and some concern respiratory status may be worsening. Her creatinine had run 0.8 or so all summer. Last month she had TRACY d/t decreased intravascular volume w/ peak creatinine during [facility] admission 2.7. By early April creat was 1.4. Note that on 04/25 she had CXR concerning for L pleural effusion and LLL lucency needing further evaluation. had a 6L paracentesis on 05/13>got 12.5 gm albumin w/ this. >hypervolemic hyponatremia >alcoholic liver cirrhosis >worsening/labile renal failure, w/ TRACY last month from volume depletion; creatinine 1.6 today >L pleural effusion and LLL lucency 04/25/2017 on XR -slowly worsening anemia -cont current spironolactone dose (but hold today) -limit po fluids to 1.0L daily -<2 gm daily sNa diet -change lasix/albumin to combo and give 30 IV mg tid 0600, noon, 1800 >> ordered but to be held after am dose today (order in) -goal sNa for tomorrow is 130 though doubt she will hit this easily -recheck bmp daily -baseline uacm ordered -cont strict I/0 -cont daily standing wt pls -defer anemia mgt to hospitalist Appreciate consult; will follow with you. Care coordinated w/ Dr. Ramirez
[2017-05-13] MEDS: THIAMINE HCL 100 MG TAB PO SCH (19:57)
[2017-05-14] VITALS (8 sets, daily range): BP systolic 108–132; BP diastolic 55–68; PULSE 66–101; TEMP 36.6–37.2; O2SAT 91–99
[2017-05-14] MEDS: ONDANSETRON INJ 2 MG/ML 2 ML VIAL IV. SCH ×4 (01:00→19:03)
[2017-05-14] MEDS: HYDROmorphone INJ 0.5 MG/0.5 ML SYR IV PRN ×4 (05:02→21:22)
[2017-05-14 07:34] LABS: BUN/CREATININE RATIO 13.6 (10-20); CALCIUM 8.4 mg/dl (8.5-10.1); CREATININE 1.56 mg/dl (0.60-1.20); POTASSIUM 3.8 mmol/L (3.5-5.1)
[2017-05-14] MEDS: CEROVITE ADV FORMULA TAB PO SCH (07:53)
[2017-05-14] MEDS: CHOLECALCIFEROL 400 INTER.UNIT TAB PO SCH (07:53)
[2017-05-14] MEDS: MIDODRINE 2.5 MG TAB PO SCH ×3 (07:54→16:47)
[2017-05-14] MEDS: POTASSIUM CHLORIDE 10 MEQ TABCR PO SCH (07:54)
[2017-05-14] MEDS: RIFAXIMIN TAB 550 MG TAB PO SCH ×2 (07:55→21:22)
[2017-05-14] MEDS: LACTULOSE SYRUP 20 GM/30 ML UDC PO SCH ×3 (07:55→21:21)
[2017-05-14] MEDS: PANTOprazole SOD 40 MG TAB PO SCH ×2 (07:55→21:22)
[2017-05-14] MEDS: LORAZEPAM 0.5 MG TAB PO PRN ×2 (07:58→23:22)
[2017-05-14] MEDS ORDERED: SPIRONOLACTONE 25 MG TAB PO ONE (08:30)
[2017-05-14] MEDS ORDERED: FUROSEMIDE IV ONE ×6 (08:45→18:00)
[2017-05-14] MEDS ORDERED: ALBUMIN 25% IV ONE ×6 (08:45→18:00)
[2017-05-14 09:14] LABS: HEMATOCRIT 20.7 % (37-47); MEAN CELL VOLUME 91.6 fL (80-100); MEAN CORPUSCULAR HGB CONC 33.8 g/dl (32-36); MEAN PLATELET VOLUME 10.1 fL (7.4-10.4); PLATELET COUNT 177 K/uL (130-400); RED BLOOD COUNT 2.26 M/uL (4.2-5.4); WHITE BLOOD COUNT 5.05 K/uL (4.8-10.8)
[2017-05-14] MEDS: TRAMADOL HCL 50 MG TAB PO PRN ×2 (10:30→21:21)
[2017-05-14] MEDS ORDERED: ALBUMIN 25% 50 ML with FUROSEMIDE INJ 40 MG IV ONE ×2 (13:00)
--- NOTE | 2017-05-14 13:58 | Gastroenterology Progress Note ---
Progress Note Date of Service: May 14, 2017 Subjective Pt evaluation today including: conversation w/ patient, physical exam, chart review, lab review, review of studies, review of inpatient medication list 52 year old female with a hx of ETOH cirrhosis on month 5 of sobriety, admitted with worsening renal function/hyponatremia and increasing abdominal distention. Paracentesis yesterday, with 6L of fluid removed. Cell count ordered, but not completed. She is feeling better today, with less distention, but does feel she may need another paracentesis in a week or so, as it doesn't feel like all the fluid was removed. She reports less distention today, and only minimal RLQ discomfort that she feels may be secondary to the paracentesis. Her labs today look better, with a sodium of 127 and potassium of 7.0. Diuretics being managed by renal service. CT chest did show a pleural effusion and she may need a thoracentesis today as per her hospitalist. Review of Systems Constitutional: No fever Eyes: No worsening of vision, No eye pain ENT: No hearing loss Respiratory: No cough, No shortness of breath Cardiac: No chest pain Abdomen: + see HPI Musculoskeletal: No joint pain Female : No dysuria Neuro: No problem reported Psych: No problem reported Heme: No abnormal bleeding/bruising Endo: No excessive thirst, No excessive urination Skin: No rash, No itch Medications Current Inpatient Medications Medications (Trade) Dose Ordered Sig/Betty Route Start Time Stop Time Status Last Admin Dose Admin Cholecalciferol (Vitamin D Tab) 800 inter.unit DAILY PO 05/11/17 09:00 06/10/17 08:59 05/14/17 07:53 800 INTER.UNIT Folic Acid (Folvite Tab) 1 mg QAM PO 05/11/17 09:00 06/10/17 08:59 05/14/17 07:53 1 MG Lorazepam (Ativan Tab) 0.5 mg BID PRN PO 05/10/17 19:00 06/09/17 18:59 05/14/17 07:58 0.5 MG Midodrine (Proamatine Tab) 7.5 mg TID@0800,1200,1600 PO 05/11/17 08:00 06/10/17 07:59 05/14/17 12:15 7.5 MG Multivitamins/ Minerals (Multivitamin W/ Minerals Tab) 1 tab DAILY PO 05/11/17 09:00 06/10/17 08:59 05/14/17 07:53 1 TAB Pantoprazole Sodium (Protonix Tab) 40 mg BID PO 05/10/17 21:00 06/09/17 20:59 05/14/17 07:55 40 MG Potassium Chloride (Klor-Con M10) 10 meq DAILY PO 05/11/17 09:00 06/10/17 08:59 05/14/17 07:54 10 MEQ Rifaximin (Xifaxan Tab) 550 mg BID PO 05/10/17 21:00 06/09/17 20:59 05/14/17 07:55 550 MG Spironolactone (Aldactone Tab) 25 mg BID17 PO 05/10/17 21:00 06/09/17 20:59 Future Hold 05/13/17 07:17 25 MG Thiamine HCl (Vitamin B-1 Tab) 100 mg Q24H PO 05/10/17 21:00 06/09/17 20:59 05/13/17 19:57 100 MG Tramadol HCl (Ultram Tab) 50 mg BID PRN PO 05/10/17 20:45 06/09/17 20:44 05/14/17 10:30 50 MG Hydromorphone HCl (Dilaudid Inj) 0.5 mg Q4H PRN IV 05/10/17 22:15 05/24/17 22:14 05/14/17 11:03 0.5 MG Furosemide 30 mg/ Albumin Human 53 ml @ 60 mls/hr TID@0600,1200,1800 IV 05/12/17 06:00 06/13/17 05:59 Future hold 05/13/17 06:16 60 MLS/HR Lactulose (Chronulac Syrup) 20 gm TID PO 05/12/17 21:00 06/09/17 20:59 05/14/17 12:17 20 GM Ondansetron HCl (Zofran Inj) 4 mg Q6H IV. 05/12/17 19:00 06/11/17 18:59 05/14/17 12:17 4 MG Furosemide 30 mg/ Albumin Human 53 ml @ 54 mls/hr 1800 ONCE IV 05/14/17 18:00 11/21/17 18:58 Furosemide 30 mg/ Albumin Human 53 ml @ 54 mls/hr ONE ONCE IV 05/14/17 13:00 05/14/17 13:58 05/14/17 13:19 54 MLS/HR Objective Vital Signs Date Time Temp Pulse Resp B/P (MAP) Pulse Ox O2 Delivery O2 Flow Rate FiO2 05/14/17 12:00 91 Room Air 05/14/17 11:55 36.9 66 18 132/60 (84) 99 05/14/17 08:03 36.8 68 18 129/68 (88) 99 05/14/17 08:00 91 Room Air 05/14/17 04:00 37.2 101 18 114/62 (79) 91 Room Air 05/14/17 04:00 Room Air 05/14/17 00:01 Room Air 05/13/17 23:46 36.8 99 18 119/54 (75) 95 Room Air 05/13/17 20:34 36.8 94 18 103/45 (64) 94 Room Air 05/13/17 20:00 Room Air 05/13/17 16:34 96 Room Air 05/13/17 16:15 36.7 91 18 108/55 (72) 96 Room Air Physical Exam General Appearance: no apparent distress Eyes: normal inspection ENT: hearing grossly normal Neck: supple Respiratory/Chest: lungs clear, normal breath sounds Cardiovascular: regular rate, rhythm, + pertinent finding (murmur) Abdomen: normal bowel sounds, soft, + distended (mild), + tenderness (mild RLQ) Extremities: + swelling (1+ BLE edema) Neurologic/Psych: alert Skin: normal color, no jaundice, warm/dry Laboratory Results Last 24 Hours Test 05/14/17 06:07 White Blood Count 5.05 K/uL Red Blood Count 2.26 M/uL Hemoglobin 7.0 g/dL Hematocrit 20.7 % Mean Corpuscular Volume 91.6 fL Mean Corpuscular Hemoglobin 31.0 pg Mean Corpuscular Hemoglobin Concent 33.8 g/dl RDW Standard Deviation 71.5 fL RDW Coefficient of Variation 21.2 % Platelet Count 177 K/uL Mean Platelet Volume 10.1 fL Sodium Level 127 mmol/L Potassium Level 3.8 mmol/L Chloride Level 93 mmol/L Carbon Dioxide Level 24 mmol/L Anion Gap 10.0 mmol/L Blood Urea Nitrogen 21 mg/dl Creatinine 1.56 mg/dl Est Creatinine Clear Calc Drug Dose 44.2 ml/min Estimated GFR () 43.2 Estimated GFR (Non- 37.3 BUN/Creatinine Ratio 13.6 Random Glucose 96 mg/dl Calcium Level 8.4 mg/dl Assessment and Plan 52 year old female with ETOH cirrhosis admitted with worsening renal function/ hyponatremia and increasing abdominal distention Will see if the cell count can be completed on the fluid obtained yesterday. She is otherwise doing much better with less abdominal distention/discomfort, and improved electrolytes. Would continue to closely monitor labs and have her follow up as an outpatient with her regular GI provider. She has an appointment with the transplant team in [place] later this month. I performed a history and physical examination of the patient. I have discussed the patient's case, impression and plan with Destini Marmolejo PA-C. Her note reflects my findings and plan. Improving. Patient show follow up with regular GI doc as out patient. Chris Rico MD
--- NOTE | 2017-05-14 17:05 | Pulmonary Consultation ---
History General Date of Service: May 14, 2017. Stated Complaint: Alcoholic Cirrhosis, Hyponatremia HPI The patient is a 52 year old female who presents to [facility] with complaints of Alcoholic Cirrhosis, Hyponatremia. The patient's primary care provider is Stef Hylton D.O.. Mrs. Licona is a 52-year-old female with past medical history of alcoholic liver cirrhosis with esophageal varices, chronic hypervolemic hyponatremia who was sent from the GI clinic for worsening fluid overload on 05/10/2017. She admits to bilateral lower extremity edema and swelling, increased abdominal girth associated with exertional dyspnea. She denies any shortness of breath at rest , cough, hemoptysis, orthopnea, paroxysmal nocturnal dyspnea. Prior to admission she was on spironolactone 25 mg twice a day as well as Lasix 40 mg twice a day. Per chart review patient had recent paracentesis 1 week prior to admission, volume removed unknown. Chest x-ray done as an outpatient showed left lower lobe opacification and CT chest was recommended. She denies any recent alcohol use. Last drink of alcohol was in December 2016. Her main complaint was discomfort from increased abdominal distention. She denied any other gastrointestinal or genitourinary symptoms. She is a current tobacco user, also has history of anxiety and depressive disorder. Upon arrival to the ER, his vital signs were temperature 36.7, pulse 92, respiratory rate of 16, blood pressure 104/58 saturating 96% on room air. Laboratory data significant for sodium of 119 as an outpatient. Repeat here in hospital was 122. Other notable labs were chloride of 88, creatinine of 1.62, which appears to be around her baseline. Serum osmolality was 255. Magnesium 1.7, total bilirubin of 5.8, AST 57, ALT 23 and alkaline phosphatase 225. Coags were PT 15.5, PTT 48.3 and INR 1.4. She had bilateral lower extremity Dopplers which were negative for DVT. Chest x -ray from 05/11/2017 showed persistent left pleural effusion associated with left lower lobe atelectasis versus consolidation. She was placed on fluid restriction given IV Lasix as well as albumin with improvement of her sodium. Over the course of her hospitalization, hemoglobin dropped from 9.2 to 6.9. Today it is 7.0. On 05/13/2017 she underwent ultrasound-guided paracentesis with removal of 6 L of ascitic fluid. Shortness of breath has improved. CT chest done postprocedure large left pleural effusion which had increased from prior study. Pulmonary consulted for thoracentesis of left pleural effusion. Historian: patient Review of Systems Constitutional: reports: as stated in HPI Eyes: reports: as stated in HPI ENT: reports: as stated in HPI Cardiovascular: reports: as stated in HPI Respiratory: reports: as stated in HPI Gastrointestinal: reports: as stated in HPI Genitourinary - Female: reports: as stated in HPI Musculoskeletal: reports: as stated in HPI Integumentary: reports: as stated in HPI Neurologic: reports: as stated in HPI Psychiatric: reports: as stated in HPI Endocrine: as stated in HPI Hematologic / Lymphatic: as stated in HPI Allergic / Immunologic: as stated in HPI All Other Symptoms All Other Systems: Reviewed and Negative Family History FH: CAD (coronary artery disease) FATHER Stroke MOTHER Social History Hx Tobacco Use In Past Year?: Yes Smoking Status: Current Every Day Smoker Marital status: Housing status: lives with significant other Occupational Status: disabled Immunizations History of Influenza Vaccine: Yes Influenza Vaccine Date: Mar 02, 2017 History of Tetanus Vaccine?: Yes Tetanus Immunization Date: Jun 28, 2015 History of Pneumococcal: Yes Pneumococcal Date: Nov 23, 2009 History of Hepatitis B Vaccine: Yes Hepatitis Immunization Date: Apr 11, 2012 History of MDRO History of MDRO: No Allergies Coded Allergies: No Known Allergies (Verified , 04/30/17) Current Medications Reported Home Medications Medications Dose Route/Sig Max Daily Dose Days Date Category Klor-Con (Potassium Chloride) 20 Meq Tabcr 10 Meq PO DAILY 04/30/17 Reported Chronulac (Lactulose) 10 Gm/15 Ml Syrp 15 Ml PO TID 04/30/17 Reported Lasix (Furosemide) 40 Mg Tab 40 Mg PO BID 04/30/17 Reported D3 High Potency (Cholecalciferol) 400 Unit Tab 1 Tab PO BID 04/30/17 Reported Lactulose (Lactulose (Encephalopathy)) 10 Gm/15 Ml Claire Unknown Dose PO TID 04/30/17 Reported Midodrine HCl (Midodrine) 2.5 Mg Tab 7.5 Mg PO TID@0800,1200,1600 30 04/10/17 Rx Ultram (Tramadol HCl) 50 Mg Tab 50 Mg PO BID PRN 10 04/10/17 Rx Xifaxan (Rifaximin) 550 Mg Tab 550 Mg PO BID 30 03/15/17 Rx Spironolactone 25 Mg Tab 25 Mg PO BID 03/12/17 Rx Folic Acid 1 Mg Tab 1 Mg PO QAM 30 03/01/17 Rx Mvi With Minerals (Multivitamins/Minerals) Tab 1 Tab PO DAILY 30 02/11/17 Rx Vitamin B-1 (Thiamine HCl) 100 Mg Tab 100 Mg PO Q24H 02/11/17 Rx Protonix (Pantoprazole Sodium) 40 Mg Tab 40 Mg PO BID 11/19/12 Reported Ativan (Lorazepam) 0.5 Mg Tab 0.5 Mg PO BID PRN 02/16/12 Reported Physical Physical Exam Vital Signs: Date Time Temp Pulse Resp B/P (MAP) Pulse Ox O2 Delivery O2 Flow Rate FiO2 05/14/17 16:18 36.6 86 18 108/55 (72) 97 Room Air 05/14/17 12:00 91 Room Air 05/14/17 11:55 36.9 66 18 132/60 (84) 99 05/14/17 08:03 36.8 68 18 129/68 (88) 99 05/14/17 08:00 91 Room Air 05/14/17 04:00 37.2 101 18 114/62 (79) 91 Room Air 05/14/17 04:00 Room Air 05/14/17 00:01 Room Air 05/13/17 23:46 36.8 99 18 119/54 (75) 95 Room Air 05/13/17 20:34 36.8 94 18 103/45 (64) 94 Room Air 05/13/17 20:00 Room Air General Appearance: WD/WN, NO APPARENT DISTRESS Head: NORMOCEPHALIC, ATRAUMATIC Eyes: PERRLA, NO DISCHARGE, EOMI, scleral icterus ENT: NORMAL MOUTH EXAM, NORMAL THROAT EXAM Neck: NORMAL RANGE OF MOTION, NO TENDERNESS (Decreased breath sound on left lung base, Good air entry on the right.), TRACHEA MIDLINE, NO STRIDOR Respiratory: NO RESPIRATORY DISTRESS, NO TENDERNESS Cardiovasular: REGULAR RATE/RHYTHM, NORMAL S1S2 Abdomen: other (distended abdomen, NT, decreased BS) Upper Extremities: other (No cyanosis, no clubbing) Edema: Bilateral LE (2+) Neuro: ALERT, ORIENTED x 3 Psychiatric: NORMAL AFFECT, NO SUICIDAL IDEATION, CONTRACTS FOR SAFETY Diagnostics Labs Results Past 24 Hours Test 05/14/17 06:07 05/14/17 13:46 Range/Units White Blood Count 5.05 4.8-10.8 K/uL Red Blood Count 2.26 4.2-5.4 M/uL Hemoglobin 7.0 12.0-16.0 g/dL Hematocrit 20.7 37-47 % Mean Corpuscular Volume 91.6 80-100 fL Mean Corpuscular Hemoglobin 31.0 25-34 pg Mean Corpuscular Hemoglobin Concent 33.8 32-36 g/dl RDW Standard Deviation 71.5 36.4-46.3 fL RDW Coefficient of Variation 21.2 11.5-14.5 % Platelet Count 177 130-400 K/uL Mean Platelet Volume 10.1 7.4-10.4 fL Sodium Level 127 136-145 mmol/L Potassium Level 3.8 3.5-5.1 mmol/L Chloride Level 93 98-107 mmol/L Carbon Dioxide Level 24 21-32 mmol/L Anion Gap 10.0 3-11 mmol/L Blood Urea Nitrogen 21 7-18 mg/dl Creatinine 1.56 0.60-1.20 mg/dl Est Creatinine Clear Calc Drug Dose 44.2 ml/min Estimated GFR () 43.2 Estimated GFR (Non- 37.3 BUN/Creatinine Ratio 13.6 10-20 Random Glucose 96 70-99 mg/dl Calcium Level 8.4 8.5-10.1 mg/dl Diagnostic Radiology (CHEST) THORAX WITHOUT 05/13/2017 CT DOSE: 546.84 mGy.cm HISTORY: Pleural effusion Left pleural effusion TECHNIQUE: Multiaxial CT images of the chest were performed without contrast. A dose lowering technique was utilized adhering to the principles of ALARA. COMPARISON: 02/22/2017 FINDINGS: Large left pleural effusion. This is slightly increased in volume from the prior study. Consolidative change left lower lobe with associated atelectatic change. This perhaps is progressive. Very small pericardial effusion. Right lung is considered generally clear. Trace amount of posterior pleural thickening unchanged from the prior study. No significant mediastinal or hilar adenopathy within limitations of an unenhanced scan. Findings consistent with hepatic cirrhosis as well as upper abdominal ascites. Findings of progressive lower thoracic chest sidewall as well as abdominal wall anasarca. These findings are progressive. IMPRESSION: 1. Relatively large left pleural effusion slightly increased in volume from the prior study.. 2. Left lower lobe atelectasis. 3. Right lung is considered generally clear. 4. Body wall anasarca progressive. 5. Upper abdominal ascites and hepatic cirrhosis which have been described previously. CHEST 2 VIEWS ROUTINE 05/11/2017 CLINICAL HISTORY: Abnormal chest x-ray. Alcoholic cirrhosis. COMPARISON STUDY: Chest x-ray dated 04/09/2017 FINDINGS: The cardiac and mediastinal contours remain stable. There is a persistent left pleural effusion with associated left lower lobe atelectasis/consolidation. Rounded opacities of both lung bases are felt to represent nipple shadows. IMPRESSION: Persistent left pleural effusion with associated left lower lobe atelectasis/consolidation. BILATERAL LOWER EXTREMITY VENOUS DOPPLER 05/11/2017 HISTORY: bilateral leg edema, leg pain COMPARISON STUDY: None. FINDINGS: There is normal compressibility, flow, and augmentation within the bilateral lower extremity deep venous systems. IMPRESSION: No DVT within the right or left lower extremity. Impression Assessment and Plan Alcoholic liver cirrhosis with esophageal varices Chronic hypervolemic hyponatremia Anemia Hepatorenal failure Ascites Left pleural effusions Tobacco use disorder Ms. Licona is a 52-year-old female with alcohol liver cirrhosis complicated by recurrent ascites, hypovolemic hyponatremia and left pleural effusion. Pleural effusion is most likely from translocation of ascitic fluid through the diaphragm. However, this is most likely seen on the right side and less on the left. Despite large amount of fluid on the left she is saturating well on room air. Nonetheless, I feel that therapeutic and diagnostic thoracentesis is needed at this time to alleviate symptoms and for diagnosis. Will obtain consent for ultrasound guided left thoracentesis in AM. Continue diuresis per nephrology and management of cirrhosis and ascites per GI. Management of anemia per hospitalist team Smoking cessation counseling provided. Nicotine patch offered. I appreciate the consult.
--- NOTE | 2017-05-14 17:20 | Nephrology Progress Note ---
Nephrology Progress Note Date of Service: May 14, 2017. Subjective had 6L tap 05/13; c/o L sided abd pain today; pulm to eval re enlarging L pleural effusion and possible L base pneumonia; no pain, no n/v; abd girth increasing again; some exertional dyspnea Objective Date Time Temp Pulse Resp B/P (MAP) Pulse Ox O2 Delivery O2 Flow Rate FiO2 05/14/17 16:18 36.6 86 18 108/55 (72) 97 Room Air 05/14/17 12:00 91 Room Air 05/14/17 11:55 36.9 66 18 132/60 (84) 99 05/14/17 08:03 36.8 68 18 129/68 (88) 99 05/14/17 08:00 91 Room Air 05/14/17 04:00 37.2 101 18 114/62 (79) 91 Room Air 05/14/17 04:00 Room Air 05/14/17 00:01 Room Air 05/13/17 23:46 36.8 99 18 119/54 (75) 95 Room Air 05/13/17 20:34 36.8 94 18 103/45 (64) 94 Room Air 05/13/17 20:00 Room Air Physical Exam: General Appearance: WD/WN, + no distress (on ra; w/ slightly increased wob and dyspnea as on other exam) Eyes: EOMI, + pertinent finding (icteric sclerae) ENT: hearing grossly normal Neck: supple Respiratory/Chest: + decreased breath sounds jose luis on L; today no wheezing Cardiovascular: regular rate, rhythm, + pertinent finding (edema 2+ less taut) Abdomen: normal bowel sounds, non tender, soft, + pertinent finding (a bit less ascites/still marked distension) Extremities: + pedal edema, + swelling Neurologic/Psych: alert, normal mood/affect, oriented x 3 Skin: warm/dry, no rash, + jaundice Current Inpatient Medications Medications (Trade) Dose Ordered Sig/Betty Route Start Time Stop Time Status Last Admin Dose Admin Cholecalciferol (Vitamin D Tab) 800 inter.unit DAILY PO 05/11/17 09:00 06/10/17 08:59 05/14/17 07:53 800 INTER.UNIT Folic Acid (Folvite Tab) 1 mg QAM PO 05/11/17 09:00 06/10/17 08:59 05/14/17 07:53 1 MG Lorazepam (Ativan Tab) 0.5 mg BID PRN PO 05/10/17 19:00 06/09/17 18:59 05/14/17 07:58 0.5 MG Midodrine (Proamatine Tab) 7.5 mg TID@0800,1200,1600 PO 05/11/17 08:00 06/10/17 07:59 05/14/17 16:47 7.5 MG Multivitamins/ Minerals (Multivitamin W/ Minerals Tab) 1 tab DAILY PO 05/11/17 09:00 06/10/17 08:59 05/14/17 07:53 1 TAB Pantoprazole Sodium (Protonix Tab) 40 mg BID PO 05/10/17 21:00 06/09/17 20:59 05/14/17 07:55 40 MG Potassium Chloride (Klor-Con M10) 10 meq DAILY PO 05/11/17 09:00 06/10/17 08:59 05/14/17 07:54 10 MEQ Rifaximin (Xifaxan Tab) 550 mg BID PO 05/10/17 21:00 06/09/17 20:59 05/14/17 07:55 550 MG Spironolactone (Aldactone Tab) 25 mg BID17 PO 05/10/17 21:00 06/09/17 20:59 Future Hold 05/13/17 07:17 25 MG Thiamine HCl (Vitamin B-1 Tab) 100 mg Q24H PO 05/10/17 21:00 06/09/17 20:59 05/13/17 19:57 100 MG Tramadol HCl (Ultram Tab) 50 mg BID PRN PO 05/10/17 20:45 06/09/17 20:44 05/14/17 10:30 50 MG Hydromorphone HCl (Dilaudid Inj) 0.5 mg Q4H PRN IV 05/10/17 22:15 05/24/17 22:14 05/14/17 16:48 0.5 MG Furosemide 30 mg/ Albumin Human 53 ml @ 60 mls/hr TID@0600,1200,1800 IV 05/12/17 06:00 06/13/17 05:59 Future hold 05/13/17 06:16 60 MLS/HR Lactulose (Chronulac Syrup) 20 gm TID PO 05/12/17 21:00 06/09/17 20:59 05/14/17 12:17 20 GM Ondansetron HCl (Zofran Inj) 4 mg Q6H IV. 05/12/17 19:00 06/11/17 18:59 05/14/17 12:17 4 MG Furosemide 30 mg/ Albumin Human 53 ml @ 54 mls/hr 1800 ONCE IV 05/14/17 18:00 05/14/17 18:58 Last 24 Hours Test 05/14/17 06:07 05/14/17 13:46 White Blood Count 5.05 K/uL Red Blood Count 2.26 M/uL Hemoglobin 7.0 g/dL Hematocrit 20.7 % Mean Corpuscular Volume 91.6 fL Mean Corpuscular Hemoglobin 31.0 pg Mean Corpuscular Hemoglobin Concent 33.8 g/dl RDW Standard Deviation 71.5 fL RDW Coefficient of Variation 21.2 % Platelet Count 177 K/uL Mean Platelet Volume 10.1 fL Sodium Level 127 mmol/L Potassium Level 3.8 mmol/L Chloride Level 93 mmol/L Carbon Dioxide Level 24 mmol/L Anion Gap 10.0 mmol/L Blood Urea Nitrogen 21 mg/dl Creatinine 1.56 mg/dl Est Creatinine Clear Calc Drug Dose 44.2 ml/min Estimated GFR () 43.2 Estimated GFR (Non- 37.3 BUN/Creatinine Ratio 13.6 Random Glucose 96 mg/dl Calcium Level 8.4 mg/dl Assessment & Plan 52 y/o F w/ 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 Presenting sNa 122; up to 124 this am. massive volume overload and some concern respiratory status may be worsening. Her creatinine had run 0.8 or so all summer. Last month she had TRACY d/t decreased intravascular volume w/ peak creatinine [place] [facility] [place] 2.7. By early April creat was 1.4. Note that on 04/25 she had CXR concerning for L pleural effusion and LLL lucency needing further evaluation. had a 6L paracentesis on 05/13>got 12.5 gm albumin w/ this. >hypervolemic hyponatremia >alcoholic liver cirrhosis >worsening/labile renal failure, w/ TRACY last month from volume depletion; creatinine 1.6 today >L pleural effusion and LLL lucency 04/25/2017 on XR -slowly worsening anemia -resume spironolactone dose but only once daily 12.5 mg -limit po fluids to 1.0L daily -<2 gm daily sNa diet -resume lasix/albumin combo and give 30 IV mg tid 0600, noon, 1800 (first 2 doses today a bit delayed) -for d/c diuretics, recommend lasix 60 mg po two doses at least 4h apart daily, K 20 mEq daily; spironolactone 25 gm daily not bid -goal sNa for tomorrow is 133 though doubt she will hit this easily -recheck bmp daily -baseline uacm ordered -cont strict I/0 -cont daily standing wt pls -defer anemia mgt to hospitalist Appreciate consult; will follow with you. Care coordinated w/ Dr. Ramirez
--- NOTE | 2017-05-14 17:48 | Progress Note ---
Medicine Progress Note Date & Time of Visit: May 14, 2017 at 12:30. Subjective Pt was seen and examined Lying in bed with no distress Pt said that she feels much better today She said that she walked around today She said that her breathing feels much better Denies any chest pain, palpitation, dizziness and SOB Objective Last 8 Hrs Date Time Temp Pulse Resp B/P (MAP) Pulse Ox O2 Delivery O2 Flow Rate FiO2 05/14/17 16:18 36.6 86 18 108/55 (72) 97 Room Air 05/14/17 12:00 91 Room Air 05/14/17 11:55 36.9 66 18 132/60 (84) 99 Physical Exam: General- No acute distress Head- atraumatic Eyes- PERRL, EOMI ENT- oropharynx clear Neck- supple, no JVD Lungs- Decrease breath sound Heart- regular rhythm Abdomen- normal bowel sounds, +distention Extremities- + pedal edema, no calf tenderness Neuro- alert, oriented x 3; PERRL, EOMI; no facial palsy Skin- warm & dry Laboratory Results: Last 24 Hours Test 05/14/17 06:07 05/14/17 13:46 White Blood Count 5.05 K/uL Red Blood Count 2.26 M/uL Hemoglobin 7.0 g/dL Hematocrit 20.7 % Mean Corpuscular Volume 91.6 fL Mean Corpuscular Hemoglobin 31.0 pg Mean Corpuscular Hemoglobin Concent 33.8 g/dl RDW Standard Deviation 71.5 fL RDW Coefficient of Variation 21.2 % Platelet Count 177 K/uL Mean Platelet Volume 10.1 fL Sodium Level 127 mmol/L Potassium Level 3.8 mmol/L Chloride Level 93 mmol/L Carbon Dioxide Level 24 mmol/L Anion Gap 10.0 mmol/L Blood Urea Nitrogen 21 mg/dl Creatinine 1.56 mg/dl Est Creatinine Clear Calc Drug Dose 44.2 ml/min Estimated GFR () 43.2 Estimated GFR (Non- 37.3 BUN/Creatinine Ratio 13.6 Random Glucose 96 mg/dl Calcium Level 8.4 mg/dl Assessment & Plan HEPATIC CIRRHOSIS/ALCOHOLIC LIVER DISEASE : H/o portal HTN with bleeding varices s/p banding. Presented with abdominal distention and 10 lb weight gain over last month since discharge Last paracentesis about 1 week ago where 5L ascites fluid removed Yesterday Starting on lasix 30 mg TID with albumin Spironolactone 25 mg BID Fluid restriction to 1.2 L and 2g Na restriction Continue Rifampin/Midodrine/Lactulose Gastro on board Will get paracentesis done in am continue monitor 05/13 S/P paracentesis where 6 liter ascites fluid removed Albumin given before and after paracentesis Continue 1.2 L fluid restriction and 2 gNa diet Continue Rifampin/Midodrine/Lactulose Will hold further lasix dose today after the paracentesis 05/14 S/P paracentesis where 6 liter ascites fluid removed on 05/13 Continue 1 L fluid restriction and 2 gNa diet Continue Rifampin/Midodrine/Lactulose Continue Lasix 30mg with albumin TID Resumed Spironolactone 25 mg daily Has a follow up appointment next week with the transplant team HYPONATREMIA Possible due to vol overload for decompensated cirrhosis Na on admission 122 Na level 125 today Continue fluid restriction. Hold futhe dose of lasix for today follow PRP Nephrology on board case discussed with Bricklayer Tender 05/14 Na 127 today Resumed Lasix 30mg with albumin TID Resumed Spironolactone 25 mg daily Case discussed with Bricklayer Tender Dr. Mcgregor Continue monitor BMP HX OF ETOH ABUSE Reports abstinence since November Pt is counselled to Continue strict ETOH abstinence GERD Protonix BID ANEMIA OF CHRONIC DISEASE : Hbg on admission 9.2 Hbg dropped to 6.9 No evidence of GI bleed D/C heparin subQ for DVT px Continue monitor cbc, transfuse prbc if Hb < 7 05/14 Hgb 7 today No sign of bleeding Continue monitor CBC and transfuse PRBC if hgb <7 Electrolyte deficiencies Mg and K stable continue monitor electrolytes CKD stage 3 Creatine increase to 1.8 On lasix 30mg TID Case discussed with Nephrology recommended to continue current lasix dose If creatine worsening, will decrease lasix tomorrow Continue monitor BMP Nephrology on board 05/14 Creatine 1.1today Resumed Lasix with albumin TID Spironolactone resumed to 25 mg daily Nephrology on board Continue monitor BMP Pleural Effusion CXR showed Persistent left pleural effusion with associated left lower lobe atelectasis/consolidation. Will reassess after the paracentesis Continue Lasix and spironolactone CT chest without contrast ordered 05/14 CT chest showed large left pleural effusion slightly increased in volume from the prior study Mostly due to fluid shift from the ascites Consult Pulmonology Case discussed with Manager Willow Plan to get thoracentesis DVT PROPHYLAXIS D/C heparin subq due to drop in hgb On SCDs DISPOSITION CODE STATUS Full Code Status Consultants: Nephrology Gastro Pulm Current Inpatient Medications: Current Inpatient Medications Medications (Trade) Dose Ordered Sig/Betty Route Start Time Stop Time Status Last Admin Dose Admin Cholecalciferol (Vitamin D Tab) 800 inter.unit DAILY PO 05/11/17 09:00 06/10/17 08:59 05/14/17 07:53 800 INTER.UNIT Folic Acid (Folvite Tab) 1 mg QAM PO 05/11/17 09:00 06/10/17 08:59 05/14/17 07:53 1 MG Lorazepam (Ativan Tab) 0.5 mg BID PRN PO 05/10/17 19:00 06/09/17 18:59 05/14/17 07:58 0.5 MG Midodrine (Proamatine Tab) 7.5 mg TID@0800,1200,1600 PO 05/11/17 08:00 06/10/17 07:59 05/14/17 16:47 7.5 MG Multivitamins/ Minerals (Multivitamin W/ Minerals Tab) 1 tab DAILY PO 05/11/17 09:00 06/10/17 08:59 05/14/17 07:53 1 TAB Pantoprazole Sodium (Protonix Tab) 40 mg BID PO 05/10/17 21:00 06/09/17 20:59 05/14/17 07:55 40 MG Potassium Chloride (Klor-Con M10) 10 meq DAILY PO 05/11/17 09:00 06/10/17 08:59 05/14/17 07:54 10 MEQ Rifaximin (Xifaxan Tab) 550 mg BID PO 05/10/17 21:00 06/09/17 20:59 05/14/17 07:55 550 MG Spironolactone (Aldactone Tab) 25 mg BID17 PO 05/10/17 21:00 06/09/17 20:59 Future Hold 05/13/17 07:17 25 MG Thiamine HCl (Vitamin B-1 Tab) 100 mg Q24H PO 05/10/17 21:00 06/09/17 20:59 05/13/17 19:57 100 MG Tramadol HCl (Ultram Tab) 50 mg BID PRN PO 05/10/17 20:45 06/09/17 20:44 05/14/17 10:30 50 MG Hydromorphone HCl (Dilaudid Inj) 0.5 mg Q4H PRN IV 05/10/17 22:15 05/24/17 22:14 05/14/17 16:48 0.5 MG Furosemide 30 mg/ Albumin Human 53 ml @ 60 mls/hr TID@0600,1200,1800 IV 05/12/17 06:00 06/13/17 05:59 Future hold 05/13/17 06:16 60 MLS/HR Lactulose (Chronulac Syrup) 20 gm TID PO 05/12/17 21:00 06/09/17 20:59 05/14/17 12:17 20 GM Ondansetron HCl (Zofran Inj) 4 mg Q6H IV. 05/12/17 19:00 06/11/17 18:59 05/14/17 12:17 4 MG Furosemide 30 mg/ Albumin Human 53 ml @ 54 mls/hr 1800 ONCE IV 05/14/17 18:00 05/14/17 18:58
[2017-05-14] MEDS: THIAMINE HCL 100 MG TAB PO SCH (21:22)
[2017-05-15] VITALS (15 sets, daily range): BP systolic 96–129; BP diastolic 46–70; PULSE 81–100; TEMP 36.7–37.2; O2SAT 91–99
[2017-05-15] MEDS: ONDANSETRON INJ 2 MG/ML 2 ML VIAL IV. SCH ×4 (01:00→20:47)
[2017-05-15] MEDS: FUROSEMIDE IV SCH ×6 (06:27→20:45)
[2017-05-15] MEDS: ALBUMIN 25% IV SCH ×6 (06:27→20:45)
[2017-05-15] MEDS: LORAZEPAM 0.5 MG TAB PO PRN ×2 (08:01→22:10)
[2017-05-15] MEDS: TRAMADOL HCL 50 MG TAB PO PRN (08:02)
[2017-05-15] MEDS: HYDROmorphone INJ 0.5 MG/0.5 ML SYR IV PRN ×3 (08:02→20:43)
[2017-05-15] MEDS: CEROVITE ADV FORMULA TAB PO SCH (08:02)
[2017-05-15] MEDS: POTASSIUM CHLORIDE 10 MEQ TABCR PO SCH (08:03)
[2017-05-15] MEDS: PANTOprazole SOD 40 MG TAB PO SCH ×2 (08:03→20:38)
[2017-05-15] MEDS: MIDODRINE 2.5 MG TAB PO SCH ×4 (08:03→20:40)
[2017-05-15] MEDS: CHOLECALCIFEROL 400 INTER.UNIT TAB PO SCH (08:03)
[2017-05-15] MEDS: LACTULOSE SYRUP 20 GM/30 ML UDC PO SCH ×3 (08:04→20:38)
[2017-05-15] MEDS: RIFAXIMIN TAB 550 MG TAB PO SCH ×2 (08:05→20:39)
[2017-05-15 09:54] LABS: BLOOD UREA NITROGEN 19 mg/dl (7-18); BUN/CREATININE RATIO 11.9 (10-20); CALCIUM 8.4 mg/dl (8.5-10.1); CARBON DIOXIDE 25 mmol/L (21-32); CHLORIDE 96 mmol/L (98-107); CREATININE 1.57 mg/dl (0.60-1.20); GLUCOSE 135 mg/dl (70-99); SODIUM 129 mmol/L (136-145)
[2017-05-15 10:06] LABS: HEMATOCRIT 19.4 % (37-47); MEAN CELL VOLUME 93.3 fL (80-100); MEAN CORPUSCULAR HEMOGLOBIN 31.3 pg (25-34); MEAN CORPUSCULAR HGB CONC 33.5 g/dl (32-36); MEAN PLATELET VOLUME 9.4 fL (7.4-10.4); PLATELET COUNT 132 K/uL (130-400); RED BLOOD COUNT 2.08 M/uL (4.2-5.4); WHITE BLOOD COUNT 3.45 K/uL (4.8-10.8)
--- NOTE | 2017-05-15 10:32 | Procedure Note ---
Procedure Note Date of Service May 15, 2017. Procedure Note Procedures: Left sided Thoracentesis Consent: obtained via the patient and placed into the chart Pre-Procedural Dx: Left pleural effusion Post-Procedural Dx: Left pleural effusion Analgesia: 8cc of 1% Liquid Lidocaine Procedure: The patient was placed in an upright position and thoracic US was used to select a spot for the procedure. A spot along the posterior axillary line was marked in the 7th intercostal space. The patient was then draped and prepped in a sterile fashion. A modified Seldinger technique was then used for catheter placement. Flowing this approximately 1100 cc of serosanguineous pleural fluid was removed. The patient was then cleaned and placed at a 60 degree angle in the bed were the US was used to evaluate for possible pneumothorax. The US showed good lung sliding and starry night sign. Post procedure CXR was ordered. EBL: < 5 cc Complications: none
--- NOTE | 2017-05-15 10:48 | Pulmonology Progress Note ---
Pulmonary Progress Note Date of Service May 15, 2017. Attending Dr. Malloy Subjective Patient seen and examined this morning. She is complaining of some mild intermittent shortness of breath and dyspnea on exertion. She denies any chest pain. Has mild generalized abdominal pain. Objective VS reviewed. Tm 36.9, BP 109/63-129-69,RR18-20, SaO2 91-99% on RA. Gen: AAOx3, NAD, Speaking in full sentences, no use of respiratory muscles of respiration CVS: S1, S2, RRR Lungs: diminished breath sound on left lower base; good air entry on the right Abd: distended, generalized tenderness to palpation, decreased BS Ext: +2 edema bilaterally, no cyanosis, no clubbing Labs reviewed. Significant for Hgb 6.5 today. Na 129, Cl 29, BUN 19, Cr 1.57. Imaging reviewed. Medications reviewed. Assessment & Plan Alcoholic liver cirrhosis with esophageal varices Chronic hypervolemic hyponatremia Anemia Hepatorenal failure Ascites Left pleural effusions Tobacco use disorder Ms. Licona is a 52-year-old female with alcohol liver cirrhosis complicated by recurrent ascites, hypovolemic hyponatremia and left pleural effusion. Consent obtained for left thoracentesis. 1100cc of serosanguinous fluid drained. Continue diuresis per nephrology and management of cirrhosis and ascites per GI. Management of anemia per hospitalist team Smoking cessation counseling provided. Nicotine patch offered. Please contact me if you have any other questions or concerns. Data Medications: Current Inpatient Medications Medications (Trade) Dose Ordered Sig/Betty Route Start Time Stop Time Status Last Admin Dose Admin Cholecalciferol (Vitamin D Tab) 800 inter.unit DAILY PO 05/11/17 09:00 06/10/17 08:59 05/15/17 08:03 800 INTER.UNIT Folic Acid (Folvite Tab) 1 mg QAM PO 05/11/17 09:00 06/10/17 08:59 05/15/17 08:04 1 MG Lorazepam (Ativan Tab) 0.5 mg BID PRN PO 05/10/17 19:00 06/09/17 18:59 05/15/17 08:01 0.5 MG Midodrine (Proamatine Tab) 7.5 mg TID@0800,1200,1600 PO 05/11/17 08:00 06/10/17 07:59 05/15/17 08:03 7.5 MG Multivitamins/ Minerals (Multivitamin W/ Minerals Tab) 1 tab DAILY PO 05/11/17 09:00 06/10/17 08:59 05/15/17 08:02 1 TAB Pantoprazole Sodium (Protonix Tab) 40 mg BID PO 05/10/17 21:00 06/09/17 20:59 05/15/17 08:03 40 MG Potassium Chloride (Klor-Con M10) 10 meq DAILY PO 05/11/17 09:00 06/10/17 08:59 05/15/17 08:03 10 MEQ Rifaximin (Xifaxan Tab) 550 mg BID PO 05/10/17 21:00 06/09/17 20:59 05/15/17 08:05 550 MG Spironolactone (Aldactone Tab) 25 mg BID17 PO 05/10/17 21:00 06/09/17 20:59 Future Hold 05/13/17 07:17 25 MG Thiamine HCl (Vitamin B-1 Tab) 100 mg Q24H PO 05/10/17 21:00 06/09/17 20:59 05/14/17 21:22 100 MG Tramadol HCl (Ultram Tab) 50 mg BID PRN PO 05/10/17 20:45 06/09/17 20:44 05/15/17 08:02 50 MG Hydromorphone HCl (Dilaudid Inj) 0.5 mg Q4H PRN IV 05/10/17 22:15 05/24/17 22:14 05/15/17 08:02 0.5 MG Furosemide 30 mg/ Albumin Human 53 ml @ 60 mls/hr TID@0600,1200,1800 IV 05/12/17 06:00 06/13/17 05:59 Future hold 05/15/17 06:27 60 MLS/HR Lactulose (Chronulac Syrup) 20 gm TID PO 05/12/17 21:00 06/09/17 20:59 05/14/17 21:21 20 GM Ondansetron HCl (Zofran Inj) 4 mg Q6H IV. 05/12/17 19:00 06/11/17 18:59 05/15/17 08:01 4 MG Vital Signs: Date Time Temp Pulse Resp B/P (MAP) Pulse Ox O2 Delivery O2 Flow Rate FiO2 05/15/17 08:12 36.8 81 18 129/69 (89) 99 05/15/17 08:00 91 Room Air 05/15/17 04:00 Room Air 05/15/17 03:20 36.8 91 20 109/63 (78) 97 Room Air 05/15/17 00:00 36.9 90 18 112/58 (76) 95 Room Air 05/15/17 00:00 Room Air 05/14/17 20:00 95 Room Air 05/14/17 20:00 36.7 86 20 132/56 (81) 95 Room Air 05/14/17 16:30 97 Room Air 05/14/17 16:18 36.6 86 18 108/55 (72) 97 Room Air 05/14/17 12:00 91 Room Air 05/14/17 11:55 36.9 66 18 132/60 (84) 99 Laboratory Results: Last 24 Hours Test 05/14/17 13:46 05/15/17 09:03 05/15/17 09:52 05/15/17 10:24 White Blood Count 3.45 K/uL Red Blood Count 2.08 M/uL Hemoglobin 6.5 g/dL Hematocrit 19.4 % Mean Corpuscular Volume 93.3 fL Mean Corpuscular Hemoglobin 31.3 pg Mean Corpuscular Hemoglobin Concent 33.5 g/dl RDW Standard Deviation 72.8 fL RDW Coefficient of Variation 21.3 % Platelet Count 132 K/uL Mean Platelet Volume 9.4 fL Sodium Level 129 mmol/L Chloride Level 96 mmol/L Carbon Dioxide Level 25 mmol/L Anion Gap 8.0 mmol/L Blood Urea Nitrogen 19 mg/dl Creatinine 1.57 mg/dl Est Creatinine Clear Calc Drug Dose 44.2 ml/min Estimated GFR () 42.9 Estimated GFR (Non- 37.0 BUN/Creatinine Ratio 11.9 Random Glucose 135 mg/dl Calcium Level 8.4 mg/dl Test 05/15/17 10:26 05/15/17 10:31
[2017-05-15 11:09] LABS: PLEURAL FLUID TOTAL PROTEIN 2.9 g/dl
--- NOTE | 2017-05-15 11:18 | DIAGNOSTIC IMAGING REPORT ---
CHEST ONE VIEW PORTABLE CLINICAL HISTORY: S/P Thoracentesis COMPARISON STUDY: 05/01/2017 FINDINGS: The cardiac images so contours remain stable. There is no evidence of pneumothorax status post left-sided thoracentesis. There are persistent but improving left basilar airspace opacities. A left scapular deformity is again evident. The right lung is clear. There is no failure.[ IMPRESSION: 1. No evidence of pneumothorax status post left-sided thoracentesis 2. Persistent but improving left basilar airspace opacities Electronically signed by: Manuel Lou M.D. 05/15/2017 11:16 AM Dictated Date/Time: 05/15/2017 11:15 AM
[2017-05-15 11:24] LABS: INR 1.6 (0.9-1.1)
[2017-05-15 11:30] LABS: POTASSIUM 3.6 mmol/L (3.5-5.1)
[2017-05-15 11:49] LABS: PLEURAL FLUID APPEARANCE CLOUDY; PLEURAL FLUID COLOR RED; PLEURAL FLUID MONONUC RELAT 86.4 %; PLEURAL FLUID POLYNUC 13.6 %; PLEURAL FLUID SOURCE LEFT LUNG; PLEURAL FLUID WBC (A) 221 /uL
--- NOTE | 2017-05-15 13:22 | Gastroenterology Progress Note ---
Progress Note Date of Service: May 15, 2017 Subjective Pt evaluation today including: conversation w/ patient, physical exam, chart review, lab review, review of studies, review of inpatient medication list 52 year old female with a hx of ETOH cirrhosis, sober for almost 6 months, admitted with worsening renal failure/hyponatremia and increasing abdominal distention. S/P paracentesis yesterday with 6L of fluid collected. Unfortunately , the fluid did not make it to the lab, and was unable to be found to complete the ordered cell count. She just had a thoracentesis today as well due to a pleural effusion. She states that while she is exhausted from the procedure, she does feel better and denies any further SOB or chest pain. She does continue with mild abdominal discomfort and her abdomen is again somewhat distended. Labs today show a Hgb of 6.5, sodium of 129 and creat of 1.57. Review of Systems Constitutional: No fever, No chills Eyes: No worsening of vision, No eye pain ENT: No hearing loss Respiratory: No shortness of breath Cardiac: No chest pain Abdomen: + see HPI Musculoskeletal: No joint pain Female : No dysuria Neuro: No problem reported Psych: No problem reported Heme: No abnormal bleeding/bruising Endo: No excessive thirst, No excessive urination Skin: No rash Medications Current Inpatient Medications Medications (Trade) Dose Ordered Sig/Betty Route Start Time Stop Time Status Last Admin Dose Admin Cholecalciferol (Vitamin D Tab) 800 inter.unit DAILY PO 05/11/17 09:00 06/10/17 08:59 05/15/17 08:03 800 INTER.UNIT Folic Acid (Folvite Tab) 1 mg QAM PO 05/11/17 09:00 06/10/17 08:59 05/15/17 08:04 1 MG Lorazepam (Ativan Tab) 0.5 mg BID PRN PO 05/10/17 19:00 06/09/17 18:59 05/15/17 08:01 0.5 MG Midodrine (Proamatine Tab) 7.5 mg TID@0800,1200,1600 PO 05/11/17 08:00 06/10/17 07:59 05/15/17 12:15 7.5 MG Multivitamins/ Minerals (Multivitamin W/ Minerals Tab) 1 tab DAILY PO 05/11/17 09:00 06/10/17 08:59 05/15/17 08:02 1 TAB Pantoprazole Sodium (Protonix Tab) 40 mg BID PO 05/10/17 21:00 06/09/17 20:59 05/15/17 08:03 40 MG Potassium Chloride (Klor-Con M10) 10 meq DAILY PO 05/11/17 09:00 06/10/17 08:59 05/15/17 08:03 10 MEQ Rifaximin (Xifaxan Tab) 550 mg BID PO 05/10/17 21:00 06/09/17 20:59 05/15/17 08:05 550 MG Spironolactone (Aldactone Tab) 25 mg BID17 PO 05/10/17 21:00 06/09/17 20:59 Future Hold 05/13/17 07:17 25 MG Thiamine HCl (Vitamin B-1 Tab) 100 mg Q24H PO 05/10/17 21:00 06/09/17 20:59 05/14/17 21:22 100 MG Tramadol HCl (Ultram Tab) 50 mg BID PRN PO 05/10/17 20:45 06/09/17 20:44 05/15/17 08:02 50 MG Hydromorphone HCl (Dilaudid Inj) 0.5 mg Q4H PRN IV 05/10/17 22:15 05/24/17 22:14 05/15/17 08:02 0.5 MG Furosemide 30 mg/ Albumin Human 53 ml @ 60 mls/hr TID@0600,1200,1800 IV 05/12/17 06:00 06/13/17 05:59 Future hold 05/15/17 12:14 60 MLS/HR Lactulose (Chronulac Syrup) 20 gm TID PO 05/12/17 21:00 06/09/17 20:59 05/14/17 21:21 20 GM Ondansetron HCl (Zofran Inj) 4 mg Q6H IV. 05/12/17 19:00 06/11/17 18:59 05/15/17 12:16 4 MG Objective Vital Signs Date Time Temp Pulse Resp B/P (MAP) Pulse Ox O2 Delivery O2 Flow Rate FiO2 05/15/17 12:00 91 Room Air 05/15/17 11:25 37.0 84 18 122/64 (83) 99 05/15/17 08:12 36.8 81 18 129/69 (89) 99 05/15/17 08:00 91 Room Air 05/15/17 04:00 Room Air 05/15/17 03:20 36.8 91 20 109/63 (78) 97 Room Air 05/15/17 00:00 36.9 90 18 112/58 (76) 95 Room Air 05/15/17 00:00 Room Air 05/14/17 20:00 95 Room Air 05/14/17 20:00 36.7 86 20 132/56 (81) 95 Room Air 05/14/17 16:30 97 Room Air 05/14/17 16:18 36.6 86 18 108/55 (72) 97 Room Air Physical Exam General Appearance: no apparent distress Eyes: normal inspection ENT: hearing grossly normal Neck: supple Respiratory/Chest: lungs clear, normal breath sounds, no respiratory distress Cardiovascular: regular rate, rhythm Abdomen: normal bowel sounds, non tender, soft, + distended Extremities: + pedal edema (1-2+) Neurologic/Psych: alert Skin: normal color, no jaundice Laboratory Results Last 24 Hours Test 05/14/17 13:46 05/15/17 09:03 05/15/17 10:26 05/15/17 10:31 White Blood Count 3.45 K/uL Red Blood Count 2.08 M/uL Hemoglobin 6.5 g/dL Hematocrit 19.4 % Mean Corpuscular Volume 93.3 fL Mean Corpuscular Hemoglobin 31.3 pg Mean Corpuscular Hemoglobin Concent 33.5 g/dl RDW Standard Deviation 72.8 fL RDW Coefficient of Variation 21.3 % Platelet Count 132 K/uL Mean Platelet Volume 9.4 fL Sodium Level 129 mmol/L Potassium Level mmol/L Chloride Level 96 mmol/L Carbon Dioxide Level 25 mmol/L Anion Gap 8.0 mmol/L Blood Urea Nitrogen 19 mg/dl Creatinine 1.57 mg/dl Est Creatinine Clear Calc Drug Dose 44.2 ml/min Estimated GFR () 42.9 Estimated GFR (Non- 37.0 BUN/Creatinine Ratio 11.9 Random Glucose 135 mg/dl Calcium Level 8.4 mg/dl Pleural Fluid Source LEFT LUNG Pleural Fluid Color RED Pleural Fluid Appearance CLOUDY Pleural Fluid WBC 221 /uL Pleural Fluid RBC 62798 /uL Pleural Fluid pH 7.45 Pleural Fluid Polynuclear WBCs % 13.6 % Pleural Fluid Mononuclear WBCs % 86.4 % Pleural Fluid Total Protein 2.9 g/dl Pleural Fluid LDH 141 IU Pleural Fluid Glucose 90 mg/dl Pleural Fluid Amylase 21 U/L Test 05/15/17 10:49 Prothrombin Time 18.0 SECONDS Prothromb Time International Ratio 1.6 Potassium Level 3.6 mmol/L Total Bilirubin 4.5 mg/dl Lactate Dehydrogenase 149 U/L Total Protein 5.7 gm/dl Albumin 3.4 gm/dl Assessment and Plan 52 year old female with ETOH cirrhosis admitted with worsening renal function/ hyponatremia and increasing abdominal distention Patient is s/p thoracentesis this morning and does state that she feels better, however her abdomen is somewhat distended again over yesterday. She reports that her pain has improved. Her electrolytes have improved and her creatinine is stable. D/W Dr. Funk regarding the possible role for a TIPS at this juncture as she has failed OP diuretic management. I discussed this with Dr. Rico who thinks it is best for her regular providers make this decision since it can be life altering. Since she has an appointment with [facility] [place] pre[place] on 05/20/17, she will discuss risks and benefits of TIPS with them at that time. Would continue to closely monitor labs and have her follow up as an outpatient with her Dr. Funk.
--- NOTE | 2017-05-15 15:31 | Progress Note ---
Medicine Progress Note Date & Time of Visit: May 15, 2017 at 15:07. Subjective Pt was seen and examined Lying in bed with no distress Pt said that her breathing feels much better after the thoracentesis this morning She said that she feels like the fluid is starting to accumulate again in her abdomen She said that her abdomen feels tender Denies any chest pain, palpitation, dizziness and SOB Objective Last 8 Hrs Date Time Temp Pulse Resp B/P (MAP) Pulse Ox O2 Delivery O2 Flow Rate FiO2 05/15/17 12:00 91 Room Air 05/15/17 11:25 37.0 84 18 122/64 (83) 99 05/15/17 08:12 36.8 81 18 129/69 (89) 99 05/15/17 08:00 91 Room Air Physical Exam: General- No acute distress Head- atraumatic Eyes- PERRL, EOMI ENT- oropharynx clear Neck- supple, no JVD Lungs- No wheezing Heart- regular rhythm Abdomen- normal bowel sounds, +distention Extremities- + pedal edema, no calf tenderness Neuro- alert, oriented x 3; PERRL, EOMI; no facial palsy Skin- warm & dry Laboratory Results: Last 24 Hours Test 05/15/17 09:03 05/15/17 10:26 05/15/17 10:31 05/15/17 10:49 White Blood Count 3.45 K/uL Red Blood Count 2.08 M/uL Hemoglobin 6.5 g/dL Hematocrit 19.4 % Mean Corpuscular Volume 93.3 fL Mean Corpuscular Hemoglobin 31.3 pg Mean Corpuscular Hemoglobin Concent 33.5 g/dl RDW Standard Deviation 72.8 fL RDW Coefficient of Variation 21.3 % Platelet Count 132 K/uL Mean Platelet Volume 9.4 fL Sodium Level 129 mmol/L Potassium Level mmol/L 3.6 mmol/L Chloride Level 96 mmol/L Carbon Dioxide Level 25 mmol/L Anion Gap 8.0 mmol/L Blood Urea Nitrogen 19 mg/dl Creatinine 1.57 mg/dl Est Creatinine Clear Calc Drug Dose 44.2 ml/min Estimated GFR () 42.9 Estimated GFR (Non- 37.0 BUN/Creatinine Ratio 11.9 Random Glucose 135 mg/dl Calcium Level 8.4 mg/dl Pleural Fluid Source LEFT LUNG Pleural Fluid Color RED Pleural Fluid Appearance CLOUDY Pleural Fluid WBC 221 /uL Pleural Fluid RBC 24266 /uL Pleural Fluid pH 7.45 Pleural Fluid Polynuclear WBCs % 13.6 % Pleural Fluid Mononuclear WBCs % 86.4 % Pleural Fluid Total Protein 2.9 g/dl Pleural Fluid LDH 141 IU Pleural Fluid Glucose 90 mg/dl Pleural Fluid Amylase 21 U/L Prothrombin Time 18.0 SECONDS Prothromb Time International Ratio 1.6 Total Bilirubin 4.5 mg/dl Lactate Dehydrogenase 149 U/L Total Protein 5.7 gm/dl Albumin 3.4 gm/dl Date/Time Source Procedure Growth Status 05/15/17 10:26 Pleural Fluid (Thoracentesis) Left Gram Stain - Final Resulted 05/15/17 10:26 Pleural Fluid (Thoracentesis) Left Bacterial Culture Pending Resulted 05/15/17 10:26 Pleural Fluid (Thoracentesis) Left Acid Fast Stain Pending Received 05/15/17 10:26 Pleural Fluid (Thoracentesis) Left Mycobacterial Culture Pending Received Assessment & Plan HEPATIC CIRRHOSIS/ALCOHOLIC LIVER DISEASE : H/o portal HTN with bleeding varices s/p banding. Presented with abdominal distention and 10 lb weight gain over last month since discharge Last paracentesis about 1 week ago where 5L ascites fluid removed Yesterday Starting on lasix 30 mg TID with albumin Spironolactone 25 mg BID Fluid restriction to 1.2 L and 2g Na restriction Continue Rifampin/Midodrine/Lactulose Gastro on board Will get paracentesis done in am continue monitor 05/13 S/P paracentesis where 6 liter ascites fluid removed Albumin given before and after paracentesis Continue 1.2 L fluid restriction and 2 gNa diet Continue Rifampin/Midodrine/Lactulose Will hold further lasix dose today after the paracentesis 05/15 S/P paracentesis where 6 liter ascites fluid removed on 05/13 Continue 1 L fluid restriction and 2 gNa diet Continue Rifampin/Midodrine/Lactulose Case discussed with Nephrology recommended to change the lasix to torsemide 40mg BID Continue Spironolactone 25 mg daily Has a follow up appointment on 05/20 with the transplant team Reviewed outpatient med rec showed, she was on lasix 40mg daily and spironolactone 100mg daily Consider TIPS since failed outpatient diuretic HYPONATREMIA Possible due to vol overload for decompensated cirrhosis Na on admission 122 Na level 125 today Continue fluid restriction. Hold futhe dose of lasix for today follow PRP Nephrology on board case discussed with Social Media Specialist 05/15 Na 129 today Lasix changed with torsemide 40mg BID Resume spironolactone 25 mg daily tomorrow Case discussed with Social Media Specialist Continue monitor BMP HX OF ETOH ABUSE Reports abstinence since November Pt is counselled to Continue strict ETOH abstinence GERD Protonix BID ANEMIA OF CHRONIC DISEASE : Hbg on admission 9.2 Hbg dropped to 6.9 No evidence of GI bleed D/C heparin subQ for DVT px Continue monitor cbc, transfuse prbc if Hb < 7 05/15 Hgb dropped to 6.5 today No sign of bleeding Will transfused 1 unit prbc today continue monitor cbc Transfuse if h/h below 7 Electrolyte deficiencies Mg and K stable continue monitor electrolytes CKD stage 3 Creatine increase to 1.5 On lasix 30mg TID Case discussed with Nephrology recommended to continue current lasix dose If creatine worsening, will decrease lasix tomorrow Continue monitor BMP Nephrology on board 05/15 Creatine 1.5 today Starting on torsemide 40mg BID On Spironolactone to 25 mg daily Nephrology on board Continue monitor BMP Pleural Effusion CXR showed Persistent left pleural effusion with associated left lower lobe atelectasis/consolidation. Will reassess after the paracentesis Continue Lasix and spironolactone CT chest without contrast ordered 05/15 CT chest showed large left pleural effusion slightly increased in volume from the prior study Mostly due to fluid shift from the ascites Consult Pulmonology S/P thoracentesis where 1.1 L fluid removed Repeat CXR post thoracentesis showed no evidence of pneumothorax. Persistent but improving left basilar airspace opacities Breathing clinically improved Continue monitor DVT PROPHYLAXIS D/C heparin subQ due to drop in hgb On SCDs DISPOSITION CODE STATUS Full Code Consultants: Nephrology Gastro Pulm Procedures: Paracentesis Thoracentesis Current Inpatient Medications: Current Inpatient Medications Medications (Trade) Dose Ordered Sig/Betty Route Start Time Stop Time Status Last Admin Dose Admin Cholecalciferol (Vitamin D Tab) 800 inter.unit DAILY PO 05/11/17 09:00 06/10/17 08:59 05/15/17 08:03 800 INTER.UNIT Folic Acid (Folvite Tab) 1 mg QAM PO 05/11/17 09:00 06/10/17 08:59 05/15/17 08:04 1 MG Lorazepam (Ativan Tab) 0.5 mg BID PRN PO 05/10/17 19:00 06/09/17 18:59 05/15/17 08:01 0.5 MG Midodrine (Proamatine Tab) 7.5 mg TID@0800,1200,1600 PO 05/11/17 08:00 06/10/17 07:59 05/15/17 12:15 7.5 MG Multivitamins/ Minerals (Multivitamin W/ Minerals Tab) 1 tab DAILY PO 05/11/17 09:00 06/10/17 08:59 05/15/17 08:02 1 TAB Pantoprazole Sodium (Protonix Tab) 40 mg BID PO 05/10/17 21:00 06/09/17 20:59 05/15/17 08:03 40 MG Potassium Chloride (Klor-Con M10) 10 meq DAILY PO 05/11/17 09:00 06/10/17 08:59 05/15/17 08:03 10 MEQ Rifaximin (Xifaxan Tab) 550 mg BID PO 05/10/17 21:00 06/09/17 20:59 05/15/17 08:05 550 MG Spironolactone (Aldactone Tab) 25 mg BID17 PO 05/10/17 21:00 06/09/17 20:59 Future Hold 05/13/17 07:17 25 MG Thiamine HCl (Vitamin B-1 Tab) 100 mg Q24H PO 05/10/17 21:00 06/09/17 20:59 05/14/17 21:22 100 MG Tramadol HCl (Ultram Tab) 50 mg BID PRN PO 05/10/17 20:45 06/09/17 20:44 05/15/17 08:02 50 MG Hydromorphone HCl (Dilaudid Inj) 0.5 mg Q4H PRN IV 05/10/17 22:15 05/24/17 22:14 05/15/17 13:03 0.5 MG Furosemide 30 mg/ Albumin Human 53 ml @ 60 mls/hr TID@0600,1200,1800 IV 05/12/17 06:00 06/13/17 05:59 Future hold 05/15/17 12:14 60 MLS/HR Lactulose (Chronulac Syrup) 20 gm TID PO 05/12/17 21:00 06/09/17 20:59 05/14/17 21:21 20 GM Ondansetron HCl (Zofran Inj) 4 mg Q6H IV. 05/12/17 19:00 06/11/17 18:59 05/15/17 12:16 4 MG
--- NOTE | 2017-05-15 16:02 | NEPHROLOGY PROGRESS NOTE ---
DATE: 05/15/2017 DATE: 05/15/2017 SUBJECTIVE: The patient feels somewhat stable, although she has poor baseline health. She has a 6 liter of ascites tap on 05/13/2017. She also had a pleural tap on the left side. She still has lower extremity edema, significant ascites. Denies any nausea, vomiting, chest pain, trouble breathing. She desperately wants to go home. PHYSICAL EXAMINATION: VITAL SIGNS: Blood pressure is 115/66, 97% on room air, temperature 36.8. GENERAL: She is awake, alert, oriented x3. She is not in any respiratory distress at rest. LUNGS: Decreased breath sound especially on the left side. She did not take a deep inspiratory effort secondary to pleuritic pain. CARDIOVASCULAR: Regular rate and rhythm. ABDOMEN: Significant ascites. EXTREMITIES: Shows 2+ pedal edema. LABORATORY TESTS: From this morning shows a hemoglobin of 6.5, WBC count of 3.45, platelet count 132. Sodium 129, potassium 3.6, BUN 19, creatinine 1.57. ASSESSMENT AND PLAN: A 52-year-old female with end-stage renal disease from alcoholic cirrhosis and chronic volume overload, recurrent hyponatremia. RECOMMENDATION: Hyponatremia : This is hypervolemic hyponatremia from alcoholic liver cirrhosis. As an outpatient, she takes Lasix 80 twice daily, but it does not seem this is enough. She has significant lower extremity edema as well as pleural effusions. She needs higher dose of diuretics. In patients with cirrhosis who has significant splanchnic circulation and intestinal wall edema Demadex/Bumex works better and I would consider switching over to Demadex 60 mg twice daily. This would be slightly higher dose of loop diuretic than she was taking before. The dose can be increased further even if it means a slightly higher creatinine. Continue spironolactone. Continue fluid limit and continue low salt diet. She does have significant anemia, in fact hemoglobin today was 6.5. Defer to hospitalist. [place]
[2017-05-15] MEDS: TORSEMIDE 20 MG TAB PO SCH (17:17)
[2017-05-15] MEDS: THIAMINE HCL 100 MG TAB PO SCH (20:38)
[2017-05-15 21:32] LABS: HEMATOCRIT 24.2 % (37-47)
[2017-05-16] MEDS: ONDANSETRON INJ 2 MG/ML 2 ML VIAL IV. SCH ×3 (01:00→10:12)
[2017-05-16] MEDS: HYDROmorphone INJ 0.5 MG/0.5 ML SYR IV PRN ×2 (03:37→07:56)
[2017-05-16 05:56] LABS: HEMATOCRIT 22.7 % (37-47); MEAN CELL VOLUME 91.9 fL (80-100); MEAN CORPUSCULAR HEMOGLOBIN 31.2 pg (25-34); MEAN CORPUSCULAR HGB CONC 33.9 g/dl (32-36); PLATELET COUNT 133 K/uL (130-400); RED BLOOD COUNT 2.47 M/uL (4.2-5.4)
[2017-05-16] MEDS: FUROSEMIDE IV SCH ×2 (06:01)
[2017-05-16] MEDS: ALBUMIN 25% IV SCH ×2 (06:01)
[2017-05-16 06:05] VITALS: BP 101/56; PULSE 94
[2017-05-16 06:44] LABS: BUN/CREATININE RATIO 12.7 (10-20); CALCIUM 8.3 mg/dl (8.5-10.1); CREATININE 1.38 mg/dl (0.60-1.20); MAGNESIUM 1.4 mg/dl (1.8-2.4); POTASSIUM 3.8 mmol/L (3.5-5.1)
[2017-05-16 07:26] VITALS: BP 102/57; PULSE 109; TEMP 36.8; O2SAT 94
[2017-05-16] MEDS: RIFAXIMIN TAB 550 MG TAB PO SCH (07:52)
[2017-05-16] MEDS: LACTULOSE SYRUP 20 GM/30 ML UDC PO SCH ×2 (07:52→13:37)
[2017-05-16] MEDS: CHOLECALCIFEROL 400 INTER.UNIT TAB PO SCH (07:52)
[2017-05-16] MEDS: TORSEMIDE 20 MG TAB PO SCH (07:52)
[2017-05-16] MEDS: POTASSIUM CHLORIDE 10 MEQ TABCR PO SCH (07:53)
[2017-05-16] MEDS: CEROVITE ADV FORMULA TAB PO SCH (07:53)
[2017-05-16] MEDS: PANTOprazole SOD 40 MG TAB PO SCH (07:53)
[2017-05-16 08:00] VITALS: O2SAT 94
[2017-05-16] MEDS ORDERED: SPIRONOLACTONE 25 MG TAB PO SCH (09:00)
[2017-05-16] MEDS: OXYCODONE HCL IR 5 MG TAB (IMMEDIATE RELEASE) PO PRN ×2 (09:01→15:40)
[2017-05-16] MEDS: MAGNESIUM SULFATE 1GM / D5W 1 GM in PREMIXED IN D5W 100 ML IV SCH ×2 (09:02→10:12)
--- NOTE | 2017-05-16 11:42 | Pulmonology Progress Note ---
Pulmonary Progress Note Date of Service May 16, 2017. Attending Dr. Malloy Subjective Patient seen and examined this morning. She states history much better from a respiratory standpoint. She denies any chest pain, shortness of breath or cough. She states that she initially had some chest pain post thoracentesis which is now resolved. She would like to go home today. Objective VS reviewed. Tm 36. 8, BP 94-109,RR 16, SaO2 94% % on RA. Gen: AAOx3, NAD, Speaking in full sentences, no use of respiratory muscles of respiration CVS: S1, S2, RRR Lungs: diminished breath sound on left lower base; good air entry on the right Abd: distended, generalized tenderness to palpation, decreased BS Ext: +2 edema bilaterally, no cyanosis, no clubbing Labs reviewed. Significant for Hgb 7.7 today. Na 125 from 129, Cl 93, BUN 17, Cr 1.38 Pleural fluid cultures pending, pleural fluid cytology pending. Imaging reviewed. CHEST ONE VIEW PORTABLE 05/15/2017 CLINICAL HISTORY: S/P Thoracentesis COMPARISON STUDY: 05/01/2017 FINDINGS: The cardiac images so contours remain stable. There is no evidence of pneumothorax status post left-sided thoracentesis. There are persistent but improving left basilar airspace opacities. A left scapular deformity is again evident. The right lung is clear. There is no failure.[ IMPRESSION: 1. No evidence of pneumothorax status post left-sided thoracentesis 2. Persistent but improving left basilar airspace opacities Medications reviewed. Assessment & Plan Alcoholic liver cirrhosis with esophageal varices Chronic hypervolemic hyponatremia Anemia Hepatorenal failure Ascites Left pleural effusions Tobacco use disorder Ms. Licona is a 52-year-old female with alcohol liver cirrhosis complicated by recurrent ascites, hypovolemic hyponatremia and left pleural effusion. She is status post left thoracentesis with removal of about 1100 mL of serosanguineous fluid. She is breathing better and feeling improved from a respiratory standpoint Fluid appears to be lymphocytic predominant exudate. Currently awaiting cultures and cytology. Continue diuresis per nephrology and management of cirrhosis and ascites per GI. Please contact me if you have any other questions or concerns. Data Medications: Current Inpatient Medications Medications (Trade) Dose Ordered Sig/Betty Route Start Time Stop Time Status Last Admin Dose Admin Cholecalciferol (Vitamin D Tab) 800 inter.unit DAILY PO 05/11/17 09:00 06/10/17 08:59 05/16/17 07:52 800 INTER.UNIT Folic Acid (Folvite Tab) 1 mg QAM PO 05/11/17 09:00 06/10/17 08:59 05/16/17 07:53 1 MG Lorazepam (Ativan Tab) 0.5 mg BID PRN PO 05/10/17 19:00 06/09/17 18:59 05/15/17 22:10 0.5 MG Midodrine (Proamatine Tab) 7.5 mg TID@0800,1200,1600 PO 05/11/17 08:00 06/10/17 07:59 05/15/17 20:40 7.5 MG Multivitamins/ Minerals (Multivitamin W/ Minerals Tab) 1 tab DAILY PO 05/11/17 09:00 06/10/17 08:59 05/16/17 07:53 1 TAB Pantoprazole Sodium (Protonix Tab) 40 mg BID PO 05/10/17 21:00 06/09/17 20:59 05/16/17 07:53 40 MG Potassium Chloride (Klor-Con M10) 10 meq DAILY PO 05/11/17 09:00 06/10/17 08:59 05/16/17 07:53 10 MEQ Rifaximin (Xifaxan Tab) 550 mg BID PO 05/10/17 21:00 06/09/17 20:59 05/16/17 07:52 550 MG Thiamine HCl (Vitamin B-1 Tab) 100 mg Q24H PO 05/10/17 21:00 06/09/17 20:59 05/15/17 20:38 100 MG Tramadol HCl (Ultram Tab) 50 mg BID PRN PO 05/10/17 20:45 06/09/17 20:44 05/15/17 08:02 50 MG Lactulose (Chronulac Syrup) 20 gm TID PO 05/12/17 21:00 06/09/17 20:59 05/16/17 07:52 20 GM Ondansetron HCl (Zofran Inj) 4 mg Q6H IV. 05/12/17 19:00 06/11/17 18:59 05/16/17 10:12 4 MG Spironolactone (Aldactone Tab) 25 mg DAILY PO 05/16/17 09:00 06/09/17 20:59 05/16/17 07:54 25 MG Oxycodone HCl (Roxicodone Immediate Rel Tab) 5 mg Q6 PRN PO 05/16/17 08:45 05/30/17 08:44 05/16/17 09:01 5 MG Torsemide (Demadex Tab) 60 mg BID17 PO 05/16/17 17:00 06/14/17 16:59 Vital Signs: Date Time Temp Pulse Resp B/P (MAP) Pulse Ox O2 Delivery O2 Flow Rate FiO2 05/16/17 08:00 94 Room Air 05/16/17 07:26 36.8 109 16 102/57 (72) 94 Room Air 05/16/17 06:05 94 101/56 (71) 05/16/17 00:00 Room Air 05/15/17 23:56 37.2 94 18 112/46 (68) 95 Room Air 05/15/17 20:58 37.1 97 18 109/62 95 05/15/17 19:58 37.1 92 18 103/60 94 05/15/17 19:25 37.0 98 18 96/52 97 05/15/17 18:57 37.1 95 20 115/66 97 05/15/17 18:40 37.2 95 18 122/66 97 05/15/17 18:22 37.0 100 18 115/70 96 05/15/17 17:07 36.7 99 18 118/65 (82) 94 Room Air 05/15/17 15:26 36.8 84 16 115/66 (82) 97 Room Air 05/15/17 12:00 91 Room Air Laboratory Results: Last 24 Hours Test 05/15/17 21:17 05/16/17 05:42 Hemoglobin 8.4 g/dL 7.7 g/dL Hematocrit 24.2 % 22.7 % White Blood Count 6.90 K/uL Red Blood Count 2.47 M/uL Mean Corpuscular Volume 91.9 fL Mean Corpuscular Hemoglobin 31.2 pg Mean Corpuscular Hemoglobin Concent 33.9 g/dl RDW Standard Deviation 68.0 fL RDW Coefficient of Variation 20.2 % Platelet Count 133 K/uL Mean Platelet Volume 9.0 fL Sodium Level 125 mmol/L Potassium Level 3.8 mmol/L Chloride Level 93 mmol/L Carbon Dioxide Level 24 mmol/L Anion Gap 8.0 mmol/L Blood Urea Nitrogen 17 mg/dl Creatinine 1.38 mg/dl Est Creatinine Clear Calc Drug Dose 50.3 ml/min Estimated GFR () 50.1 Estimated GFR (Non- 43.2 BUN/Creatinine Ratio 12.7 Random Glucose 81 mg/dl Calcium Level 8.3 mg/dl Magnesium Level 1.4 mg/dl
[2017-05-16] MEDS: MIDODRINE 2.5 MG TAB PO SCH ×2 (12:25→15:38)
[2017-05-16 12:27] VITALS: BP 106/52; PULSE 90
[2017-05-16] MEDS ORDERED: RXC5 PO (15:45)
[2017-05-16] MEDS ORDERED: DMD20 PO (15:45)
[2017-05-16] MEDS ORDERED: SPR25 PO (15:45)
[2017-05-16 15:59] VITALS: BP 111/54; PULSE 94; TEMP 37.2; O2SAT 95
--- NOTE | 2017-05-16 16:05 | Discharge Instructions ---
Discharge Instructions Date of Service May 16, 2017. Admission Reason for Admission: Alcoholic Cirrhosis, Hyponatremia Discharge Discharge Diagnosis / Problem: Ascites, hyponatremia, Left pleural effusion, Anemia of chronic disease Discharge Goals Goal(s): Decrease discomfort, Improve function, Improve disease control Activity Recommendations Activity Limitations: resume your previous activity (as tolerated) Follow up with your primary care Dr. Hylton on 05/21/17 @ 3:00PM Follow up with the transplant team on 05/20/17 @ 9:00 AM Follow up with gastroenterology Continue monitor BMP and magnesium and CBC Continue fluid restriction to 1.2 Liter Follow up a low sodium diet oxycodone for pain Please do not drive after taking the oxycodone Current Hospital Diet Patient's current hospital diet: Low Sodium Diet (2gm Na) Discharge Diet Recommended Diet: Low Sodium Diet (2gm Na) Pending Studies Studies pending at discharge: yes List of pending studies: acid fast stain from pleural effusion Medical Emergencies . Who to Call and When: Medical Emergencies: If at any time you feel your situation is an emergency, please call 911 immediately. . Non-Emergent Contact Non-Emergency issues call your: Primary Care Provider Call Non-Emergent contact if: you have a fever, you have any medication questions . . "Provider Documentation" section prepared by Nir Ramirez. . VTE Core Measure Inpt VTE Proph given/why not?: SCD's [place] Drug Monitoring Program Search Results: no issues identified
[2017-05-16] MEDS ORDERED: OXYCODONE HCL IR 5 MG TAB (IMMEDIATE RELEASE) PO PRN (16:14)
[2017-05-16 16:18] VITALS: BP 111/54; PULSE 94; TEMP 37.2; O2SAT 95
[2017-05-16] MEDS ORDERED: OXYCODONE HCL IR 5 MG TAB (IMMEDIATE RELEASE) PO SCH (16:30)
[2017-05-16] MEDS ORDERED: TORSEMIDE 20 MG TAB PO SCH ×4 (17:00→21:00)
--- NOTE | 2017-05-16 17:30 | Progress Note ---
Medicine Progress Note Date & Time of Visit: May 16, 2017 at 11:17. Subjective Pt was seen and examined Lying in bed with no distress Pt would like to go home today She said that her breathing seems much better today She denies any chest pain, palpitation, dizziness and SOB Objective Last 8 Hrs Date Time Temp Pulse Resp B/P (MAP) Pulse Ox O2 Delivery O2 Flow Rate FiO2 05/16/17 16:18 37.2 94 17 95 Room Air 05/16/17 15:59 37.2 94 17 111/54 (73) 95 05/16/17 12:27 90 106/52 (70) Physical Exam: General- No acute distress Head- atraumatic Eyes- PERRL, EOMI ENT- oropharynx clear Neck- supple, no JVD Lungs- No wheezing Heart- regular rhythm Abdomen- normal bowel sounds, +distention Extremities- + pedal edema, no calf tenderness Neuro- alert, oriented x 3; PERRL, EOMI; no facial palsy Skin- warm & dry Laboratory Results: Last 24 Hours Test 05/15/17 21:17 05/16/17 05:42 Hemoglobin 8.4 g/dL 7.7 g/dL Hematocrit 24.2 % 22.7 % White Blood Count 6.90 K/uL Red Blood Count 2.47 M/uL Mean Corpuscular Volume 91.9 fL Mean Corpuscular Hemoglobin 31.2 pg Mean Corpuscular Hemoglobin Concent 33.9 g/dl RDW Standard Deviation 68.0 fL RDW Coefficient of Variation 20.2 % Platelet Count 133 K/uL Mean Platelet Volume 9.0 fL Sodium Level 125 mmol/L Potassium Level 3.8 mmol/L Chloride Level 93 mmol/L Carbon Dioxide Level 24 mmol/L Anion Gap 8.0 mmol/L Blood Urea Nitrogen 17 mg/dl Creatinine 1.38 mg/dl Est Creatinine Clear Calc Drug Dose 50.3 ml/min Estimated GFR () 50.1 Estimated GFR (Non- 43.2 BUN/Creatinine Ratio 12.7 Random Glucose 81 mg/dl Calcium Level 8.3 mg/dl Magnesium Level 1.4 mg/dl Assessment & Plan HEPATIC CIRRHOSIS/ALCOHOLIC LIVER DISEASE : H/o portal HTN with bleeding varices s/p banding. Presented with abdominal distention and 10 lb weight gain over last month since discharge Last paracentesis about 1 week ago where 5L ascites fluid removed Yesterday Starting on lasix 30 mg TID with albumin Spironolactone 25 mg BID Fluid restriction to 1.2 L and 2g Na restriction Continue Rifampin/Midodrine/Lactulose Gastro on board Will get paracentesis done in am continue monitor 05/13 S/P paracentesis where 6 liter ascites fluid removed Albumin given before and after paracentesis Continue 1.2 L fluid restriction and 2 gNa diet Continue Rifampin/Midodrine/Lactulose Will hold further lasix dose today after the paracentesis 05/16 S/P paracentesis where 6 liter ascites fluid removed on 05/13 Continue 1 L fluid restriction and 2 gNa diet Continue Rifampin/Midodrine/Lactulose Case discussed with Nephrology yesterday recommended to change the lasix to torsemide 60mg BID Continue Spironolactone 25 mg daily Has a follow up appointment on 05/20 with the transplant team Reviewed outpatient med rec showed, she was on lasix 40mg daily and spironolactone 100mg daily Consider TIPS since failed outpatient diuretic Nephrology recommended to increase the torsemide to 80-100 mg BID Will monitor BMP HYPONATREMIA Possible due to vol overload for decompensated cirrhosis Na on admission 122 Na level 125 today Continue fluid restriction. Hold futhe dose of lasix for today follow PRP Nephrology on board case discussed with [employer] Sales Supervisor 05/16 Na dropped 125 today Torsemide increase to 80mg BID Ok to titrate torsemide to 100mg BID if needed as per nephrology Pt wants to go home today OK by nephrology to discharge home Continue spironolactone 25 mg daily Case discussed with [employer] Sales Supervisor Check BMP on 05/20 Continue 1.2 L fluid restriction HX OF ETOH ABUSE Reports abstinence since November Pt is counselled to Continue strict ETOH abstinence GERD Protonix BID ANEMIA OF CHRONIC DISEASE : Hbg on admission 9.2 Hbg dropped to 6.9 No evidence of GI bleed D/C heparin subQ for DVT px Continue monitor cbc, transfuse prbc if Hb < 7 05/15 Hgb 7.7 today No sign of bleeding received 1 unit prbc yesterday continue monitor cbc Transfuse if h/h below 7 Electrolyte deficiencies Mg replaced continue monitor electrolytes CKD stage 3 Creatine increase to 1.5 On lasix 30mg TID Case discussed with Nephrology recommended to continue current lasix dose If creatine worsening, will decrease lasix tomorrow Continue monitor BMP Nephrology on board 05/15 Creatine 1.3 today Torsemide increased to 80mg BID Continue Spironolactone to 25 mg daily' Case discussed with nephrology, and OK to discharge on Torsemide Nephrology on board Continue monitor BMP Pleural Effusion CXR showed Persistent left pleural effusion with associated left lower lobe atelectasis/consolidation. Will reassess after the paracentesis Continue Lasix and spironolactone CT chest without contrast ordered 05/16 CT chest showed large left pleural effusion slightly increased in volume from the prior study Mostly due to fluid shift from the ascites Consult Pulmonology S/P thoracentesis on 05/15 where 1.1 L fluid removed Repeat CXR post thoracentesis showed no evidence of pneumothorax. Persistent but improving left basilar airspace opacities Breathing clinically improved Fluid appears to be lymphocytic predominant exudate Continue monitor DVT PROPHYLAXIS D/C heparin subQ due to drop in hgb On SCDs DISPOSITION CODE STATUS Full Code Disposition Discharge home today Follow up with Dr. Hylton on 05/21 @ 3:00 PM Follow up with transplant team on 05/20 @ 9:00 AM Check BMP, Mg, CBC on 05/20 Consultants: Nephrology Gastro Pulm Procedures: Paracentesis Thoracentesis Current Inpatient Medications: Current Inpatient Medications Medications (Trade) Dose Ordered Sig/Betty Route Start Time Stop Time Status Last Admin Dose Admin Cholecalciferol (Vitamin D Tab) 800 inter.unit DAILY PO 05/11/17 09:00 06/10/17 08:59 05/16/17 07:52 800 INTER.UNIT Folic Acid (Folvite Tab) 1 mg QAM PO 05/11/17 09:00 06/10/17 08:59 05/16/17 07:53 1 MG Lorazepam (Ativan Tab) 0.5 mg BID PRN PO 05/10/17 19:00 06/09/17 18:59 05/15/17 22:10 0.5 MG Midodrine (Proamatine Tab) 7.5 mg TID@0800,1200,1600 PO 05/11/17 08:00 06/10/17 07:59 05/16/17 15:38 7.5 MG Multivitamins/ Minerals (Multivitamin W/ Minerals Tab) 1 tab DAILY PO 05/11/17 09:00 06/10/17 08:59 05/16/17 07:53 1 TAB Pantoprazole Sodium (Protonix Tab) 40 mg BID PO 05/10/17 21:00 06/09/17 20:59 05/16/17 07:53 40 MG Potassium Chloride (Klor-Con M10) 10 meq DAILY PO 05/11/17 09:00 06/10/17 08:59 05/16/17 07:53 10 MEQ Rifaximin (Xifaxan Tab) 550 mg BID PO 05/10/17 21:00 06/09/17 20:59 05/16/17 07:52 550 MG Thiamine HCl (Vitamin B-1 Tab) 100 mg Q24H PO 05/10/17 21:00 06/09/17 20:59 05/15/17 20:38 100 MG Tramadol HCl (Ultram Tab) 50 mg BID PRN PO 05/10/17 20:45 06/09/17 20:44 05/15/17 08:02 50 MG Lactulose (Chronulac Syrup) 20 gm TID PO 05/12/17 21:00 06/09/17 20:59 05/16/17 07:52 20 GM Ondansetron HCl (Zofran Inj) 4 mg Q6H IV. 05/12/17 19:00 06/11/17 18:59 05/16/17 10:12 4 MG Spironolactone (Aldactone Tab) 25 mg DAILY PO 05/16/17 09:00 06/09/17 20:59 05/16/17 07:54 25 MG Oxycodone HCl (Roxicodone Immediate Rel Tab) 5 mg Q6 PRN PO 05/16/17 08:45 05/30/17 08:44 05/16/17 15:40 5 MG Torsemide (Demadex Tab) 60 mg BID17 PO 05/16/17 17:00 06/14/17 16:59 Torsemide (Demadex Tab) 80 mg BID PO 05/16/17 21:00 05/17/17 09:01 No refill Oxycodone HCl (Roxicodone Immediate Rel Tab) 5 mg Q6H PO 05/16/17 16:30 05/17/17 16:29 No refill
--- NOTE | 2017-05-21 00:41 | Discharge Summary ---
Discharge Summary Date of Service May 21, 2017. Discharge Summary Admission Date: May 10, 2017 at 17:56 Discharge Date: May 16, 2017 Discharge Disposition: Home Principal Diagnosis: HEPATIC CIRRHOSIS/ALCOHOLIC LIVER DISEASE : Secondary Diagnoses/Problems: Hyponatremia Left pleural effusion Anemia of chronic disease Ascites Electrolyte deficiencies CKD stage 3 Procedures: Paracentesis Thoracentesis Consultations: Nephrology Gastro Pulm Medication Reconciliation New Medications: Oxycodone HCl (Oxycodone HCl) 5 Mg Tab 5 MG PO Q6 PRN for Pain for 5 Days, #20 TAB Torsemide (Torsemide) 20 Mg Tab 80 MG PO BID17 for 30 Days, TAB Changed Medications: Spironolactone (Spironolactone) 25 Mg Tab 25 MG PO DAILY for 30 Days, #30 TAB 2 Refills (Changed from: BID) Continued Medications: Cholecalciferol (D3 High Potency) 400 Unit Tab 1 TAB PO BID Folic Acid (Folic Acid) 1 Mg Tab 1 MG PO QAM for 30 Days, #30 TAB Lactulose (Chronulac) 10 Gm/15 Ml Syrp 15 ML PO TID Lactulose (Encephalopathy) (Lactulose) 10 Gm/15 Ml Claire Unknown Dose PO TID Lorazepam (Ativan) 0.5 Mg Tab 0.5 MG PO BID PRN for Anxiety Midodrine (Midodrine HCl) 2.5 Mg Tab 7.5 MG PO TID@0800,1200,1600 for 30 Days, TAB Multivitamins/Minerals (Mvi With Minerals) Tab 1 TAB PO DAILY for 30 Days, TAB 2 Refills Pantoprazole (Protonix) 40 Mg Tab 40 MG PO BID Potassium Ext Rel (Klor-Con) 20 Meq Tabcr 10 MEQ PO DAILY Rifaximin (Xifaxan) 550 Mg Tab 550 MG PO BID for 30 Days, #60 TAB 2 Refills Thiamine HCl (Vitamin B-1) 100 Mg Tab 100 MG PO Q24H, #30 TAB 1 Refill Discontinued Medications: Furosemide (Lasix) 40 Mg Tab 40 MG PO BID Tramadol (Ultram) 50 Mg Tab 50 MG PO BID PRN for Pain for 10 Days Admission Information HPI (per Admitting provider): This is a 52 year old F with history of cirrhosis who as per history due to alcohol use but no recent alcohol use who is a patient of Dr. Funk of [facility], sent by Dr. Funk as direct admission for Hyponatremia and as significant fluid overload with returning of abdominal distention after having paracentesis 1 week ago and lower extremity swelling. Patient denies chest pain or shortness of breath but reports discomfort from abdominal distention. Patient denies vomiting or diarrhea or dysuria or confusion Physical Exam (per Admitting): General Appearance: WD/WN, no apparent distress Head: normocephalic, atraumatic Eyes: normal inspection, EOMI, sclerae normal ENT: normal ENT inspection, hearing grossly normal, TMs normal, pharynx normal Neck: no JVD, trachea midline Respiratory/Chest: chest non-tender, lungs clear, normal breath sounds, no respiratory distress, no accessory muscle use Cardiovascular: regular rate, rhythm, no JVD Abdomen/GI: normal bowel sounds, non tender, + distended Back: normal inspection, no muscle spasm Extremities/Musculoskelatal: + pedal edema, + swelling (bilateral lower extremity swelling) Neurologic/Psych: no motor/sensory deficits, alert, oriented x 3 Skin: normal color, warm/dry Hospital Course HEPATIC CIRRHOSIS/ALCOHOLIC LIVER DISEASE : H/o portal HTN with bleeding varices s/p banding. Presented with abdominal distention and 10 lb weight gain over last month since discharge Last paracentesis about 1 week ago where 5L ascites fluid removed Yesterday Starting on lasix 30 mg TID with albumin Spironolactone 25 mg BID Fluid restriction to 1.2 L and 2g Na restriction Continue Rifampin/Midodrine/Lactulose Gastro on board Will get paracentesis done in am continue monitor 05/13 S/P paracentesis where 6 liter ascites fluid removed Albumin given before and after paracentesis Continue 1.2 L fluid restriction and 2 gNa diet Continue Rifampin/Midodrine/Lactulose Will hold further lasix dose today after the paracentesis 05/16 S/P paracentesis where 6 liter ascites fluid removed on 05/13 Continue 1 L fluid restriction and 2 gNa diet Continue Rifampin/Midodrine/Lactulose Case discussed with Nephrology yesterday recommended to change the lasix to torsemide 60mg BID Continue Spironolactone 25 mg daily Has a follow up appointment on 05/20 with the transplant team Reviewed outpatient med rec showed, she was on lasix 40mg daily and spironolactone 100mg daily Consider TIPS since failed outpatient diuretic Nephrology recommended to increase the torsemide to 80-100 mg BID Will monitor BMP HYPONATREMIA Possible due to vol overload for decompensated cirrhosis Na on admission 122 Na level 125 today Continue fluid restriction. Hold futhe dose of lasix for today follow PRP Nephrology on board case discussed with Associate Merchandise Planner 05/16 Na dropped 125 today Torsemide increase to 80mg BID Ok to titrate torsemide to 100mg BID if needed as per nephrology Pt wants to go home today OK by nephrology to discharge home Continue spironolactone 25 mg daily Case discussed with Associate Merchandise Planner Check BMP on 05/20 Continue 1.2 L fluid restriction HX OF ETOH ABUSE Reports abstinence since November Pt is counselled to Continue strict ETOH abstinence GERD Protonix BID ANEMIA OF CHRONIC DISEASE : Hbg on admission 9.2 Hbg dropped to 6.9 No evidence of GI bleed D/C heparin subQ for DVT px Continue monitor cbc, transfuse prbc if Hb < 7 05/15 Hgb 7.7 today No sign of bleeding received 1 unit prbc yesterday continue monitor cbc Transfuse if h/h below 7 Electrolyte deficiencies Mg replaced continue monitor electrolytes CKD stage 3 Creatine increase to 1.5 On lasix 30mg TID Case discussed with Nephrology recommended to continue current lasix dose If creatine worsening, will decrease lasix tomorrow Continue monitor BMP Nephrology on board 05/15 Creatine 1.3 today Torsemide increased to 80mg BID Continue Spironolactone to 25 mg daily' Case discussed with nephrology, and OK to discharge on Torsemide Nephrology on board Continue monitor BMP Pleural Effusion CXR showed Persistent left pleural effusion with associated left lower lobe atelectasis/consolidation. Will reassess after the paracentesis Continue Lasix and spironolactone CT chest without contrast ordered 05/16 CT chest showed large left pleural effusion slightly increased in volume from the prior study Mostly due to fluid shift from the ascites Consult Pulmonology S/P thoracentesis on 05/15 where 1.1 L fluid removed Repeat CXR post thoracentesis showed no evidence of pneumothorax. Persistent but improving left basilar airspace opacities Breathing clinically improved Fluid appears to be lymphocytic predominant exudate Continue monitor DVT PROPHYLAXIS D/C heparin subQ due to drop in hgb On SCDs DISPOSITION CODE STATUS Full Code Disposition Discharge home today Follow up with Dr. Hylton on 05/21 @ 3:00 PM Follow up with transplant team on 05/20 @ 9:00 AM Check BMP, Mg, CBC on 05/20 Total time spent on discharge = 35 minutes This includes examination of the patient, discharge planning, medication reconciliation, and communication with other providers. Discharge Instructions Discharge Instructions Date of Service May 16, 2017. Admission Reason for Admission: Alcoholic Cirrhosis, Hyponatremia Discharge Discharge Diagnosis / Problem: Ascites, hyponatremia, Left pleural effusion, Anemia of chronic disease Discharge Goals Goal(s): Decrease discomfort, Improve function, Improve disease control Activity Recommendations Activity Limitations: resume your previous activity (as tolerated) Follow up with your primary care Dr. Hylton on 05/21/17 @ 3:00PM Follow up with the transplant team on 05/20/17 @ 9:00 AM Follow up with gastroenterology Continue monitor BMP and magnesium and CBC Continue fluid restriction to 1.2 Liter Follow up a low sodium diet oxycodone for pain Please do not drive after taking the oxycodone Current Hospital Diet Patient's current hospital diet: Low Sodium Diet (2gm Na) Discharge Diet Recommended Diet: Low Sodium Diet (2gm Na) Pending Studies Studies pending at discharge: yes List of pending studies: acid fast stain from pleural effusion Medical Emergencies . Who to Call and When: Medical Emergencies: If at any time you feel your situation is an emergency, please call 911 immediately. . Non-Emergent Contact Non-Emergency issues call your: Primary Care Provider Call Non-Emergent contact if: you have a fever, you have any medication questions . . "Provider Documentation" section prepared by Nir Ramirez. . VTE Core Measure Inpt VTE Proph given/why not?: SCD's [place] Drug Monitoring Program Search Results: no issues identified Additional Copies To Stef Hylton D.O.
== END 2017-05-16 18:04 | disposition home or self-care (01) | DRG 433 ==
LOC: C.2T 17:56 → ENRESERV 05-15 15:58 → C.MED 05-15 17:01
PROVIDERS: ADMIT Hospitalist; ATTEND Internal Medicine
PROC: 0W9B3ZZ Drainage of Left Pleural Cavity, Percutaneous Approach (ICD-10-PCS; principal; 2017-05-15)
DX: K70.31 Alcoholic cirrhosis of liver with ascites (principal); E87.1 Hypo-osmolality and hyponatremia; J90 Pleural effusion, not elsewhere classified; F32.9 Major depressive disorder, single episode, unspecified; K21.9 Gastro-esophageal reflux disease without esophagitis; F17.200 Nicotine dependence, unspecified, uncomplicated; D63.8 Anemia in other chronic diseases classified elsewhere; F41.9 Anxiety disorder, unspecified; Z82.3 Family history of stroke

== ENCOUNTER → 2017-05-23 | Day surgery (SDC) | payer BC ==
[~2017-05-23] VITALS: Ht 165.1 cm; Wt 88.0 kg
[~2017-05-23] MED LIST changes: +ALBUMIN HUMAN 25% 12.5 GM/50 ML VIAL IV ONE; +DMD20 PO; +ETHANOLAMINE OLEATE 5% 2 ML AMP ONE; +FENTANYL CITRATE INJ 50 MCG/1 ML 2 ML VIAL ONE; -FRS/40 PO; +LIDOCAINE HCL 2% 2 ML VIAL (20MG/ML) ONE; +ONDANSETRON INJ 2 MG/ML 2 ML VIAL ONE; +PROPOFOL IV EMULSION 10 MG/ML 20 ML VIAL IV ONE; +RXC5 PO; -TRAM-10 PO
[2017-05-23 13:04] VITALS: Ht 165.1 cm; Wt 88.0 kg
--- NOTE | 2017-05-23 13:07 | Endo History and Physical ---
History & Physical Date of Service: May 23, 2017. Chief Complaint: Cirrhosis, h/o varices Referring Physician: History of Present Illness Cirrhosis, h/o varices. Plan variceal banding. Past Medical History Fractures, Reflux, Liver Disease, Depression Past Surgical History Hx Cardiac Surgery: No Hx Internal Defibrillator: No Hx Pacemaker: No Hx Abdominal Surgery: Yes (c sec) Hx Post-Op Nausea and Vomiting: No Hx Cancer Surgery: No Hx Thoracic Surgery: No Hx Orthopedic: No Hx Urinary Tract Surgery: No Social History Smoking Status: Current Every Day Smoker Hx Substance Use: No Hx Alcohol Use: Yes Allergies Coded Allergies: No Known Allergies (Verified , 05/23/17) Current Medications Reported Home Medications Medications Dose Route/Sig Max Daily Dose Days Date Category Torsemide 20 Mg Tab 80 Mg PO BID17 30 05/16/17 Rx Oxycodone HCl 5 Mg Tab 5 Mg PO Q6 PRN 5 05/16/17 Rx Spironolactone 25 Mg Tab 25 Mg PO DAILY 30 05/16/17 Rx Klor-Con (Potassium Chloride) 20 Meq Tabcr 10 Meq PO DAILY 04/30/17 Reported Chronulac (Lactulose) 10 Gm/15 Ml Syrp 15 Ml PO TID 04/30/17 Reported D3 High Potency (Cholecalciferol) 400 Unit Tab 1 Tab PO BID 04/30/17 Reported Midodrine HCl (Midodrine) 2.5 Mg Tab 7.5 Mg PO TID@0800,1200,1600 30 04/10/17 Rx Xifaxan (Rifaximin) 550 Mg Tab 550 Mg PO BID 30 03/15/17 Rx Folic Acid 1 Mg Tab 1 Mg PO QAM 30 03/01/17 Rx Mvi With Minerals (Multivitamins/Minerals) Tab 1 Tab PO DAILY 30 02/11/17 Rx Vitamin B-1 (Thiamine HCl) 100 Mg Tab 100 Mg PO Q24H 02/11/17 Rx Protonix (Pantoprazole Sodium) 40 Mg Tab 40 Mg PO BID 11/19/12 Reported Ativan (Lorazepam) 0.5 Mg Tab 0.5 Mg PO BID PRN 02/16/12 Reported Vital Signs Weight (Kilograms): 88 Height (Feet): 5 Height (Inches): 5 Physical Exam General Appearance: no apparent distress Respiratory/Chest: Respiratory effort: no dyspnea Cardiovascular: Heart Auscultation: RRR Abdomen: Inspection & Palpation: distended Assessment and Plan H/o varices - EGD
[2017-05-23 14:32] VITALS: BP 128/74; PULSE 89; O2SAT 95
--- NOTE | 2017-05-23 14:34 | Anesthesiology Progress Note ---
Anesthesia Post Op Note Date & Time May 23, 2017 at 14:34 Vital Signs Pain Intensity: 6 Vital Signs Past 12 Hours Date Time Temp Pulse Resp B/P (MAP) Pulse Ox O2 Delivery O2 Flow Rate FiO2 05/23/17 14:17 86 16 100/77 (85) 95 Room Air 05/23/17 14:02 87 13 101/62 (75) 99 Room Air 05/23/17 13:12 36.6 87 20 112/52 (72) 97 Room Air Notes Mental Status: alert / awake / arousable, participated in evaluation Nausea / Vomiting: adequately controlled Pain: adequately controlled Airway Patency, RR, SpO2: stable & adequate BP & HR: stable & adequate Hydration State: stable & adequate Anesthetic Complications: no major complications apparent
--- NOTE | 2017-05-23 14:47 | Discharge Instructions ---
Endoscopy Patient Instructions Date / Procedure(s) Performed May 23, 2017. EGD Allergy Information Coded Allergies: No Known Allergies (Verified , 05/23/17) Discharge Date / Findings May 23, 2017. Stigmata of prior banding but only small varices without high risk features at present. Portal gastropathy GAVE, s/p APC Provider Instructions Activity Restrictions - No exercising or heavy lifting for 24 hours. - Do not drink alcohol the day of the procedure. - Do not drive a car or operate machinery until the day after the procedure. - Do not make any important decisions or sign important papers in 24 hours after the procedure. Following Day: - Return to full activity which may include returning to work/school. Diet Start your diet with liquids and light foods (jello, soup, juice, toast). Then eat your usual diet if not nauseated. Treatment For Common After Affects For mild abdominal pain, bloating, or excessive gas: - Rest - Eat lightly - Lie on right side Follow-Up Information Follow-up with DR ROSS as scheduled Anesthesia Information What You Should Know You have had a procedure that required some medicine to reduce anxiety and discomfort. This treatment is called moderate sedation. After receiving the treatment, you may be sleepy, but you will be able to breathe on your own. The effects of the treatment may last for several hours. Follow these instructions along with Activity/Diet recommendations noted above: * Do NOT do anything where dizziness or clumsiness would be dangerous. * Rest quietly at home today, then you can be up and about tomorrow. * Have a responsible person stay with you the rest of today. * You may have had an I.V. today. If so, you may take the dressing off later today. Recommendations Call your doctor if: * Trouble breathing * Continuous vomiting for more than 24 hours * Temperature above 101 degrees * Severe abdominal pain or bloating * Pain not relieved by pain medicine ordered * There is increased drainage or redness from any incision * A large amount of rectal bleeding greater than 2-3 tablespoons. (If you had a polyp/s removed or have hemorrhoids, a small amount of blood - from the rectum is to be expected.) * You have any unanswered questions or concerns. IN THE EVENT OF A SERIOUS EMERGENCY, GO TO THE NEAREST EMERGENCY ROOM Your discharge instructions were prepared by provider Tan Hameed. Patient Instructions Signature Page Lauren Licona Patient (or Guardian) Signature/Date: I have read and understand the instructions given to me by my caregivers. Caregiver/RN/Doctor Signature/Date: The above-named patient and/or guardian has received patient instructions on this date. + Original Patient Signature Page (only) stays with chart. Please make copy for patient.
--- NOTE | 2017-05-23 14:53 | GI REPORT ---
Procedure Date: 05/23/2017 1:31 PM Procedure: Upper GI endoscopy Indications: Cirrhosis rule out esophageal varices Medicines: See the Anesthesia note for documentation of the administered medications Complications: No immediate complications. Estimated Blood Loss: Estimated blood loss: none. Procedure: Pre-Anesthesia Assessment: - ASA Grade Assessment: III - A patient with severe systemic disease. After obtaining informed consent, the endoscope was passed under direct vision. Throughout the procedure, the patient's blood pressure, pulse, and oxygen saturations were monitored continuously. The scope was introduced through the mouth, and advanced to the second part of duodenum. The upper GI endoscopy was accomplished without difficulty. The patient tolerated the procedure well. Findings: There were three columns of small g1 varices that easily flattened with insufflation. There were multiple areas of scar in the lower esophagus, consistent with prior banding. There were multiple rings at the GE junction with mild luminal narrowing. There were two small ulcers at the GE junction, possibly from pill esophagitis. There was marked portal gastropathy with spontaneous mild oozing in cardia. There were changes of portal gastropathy throughout the body of the stomach. There were stripes of petechiae in the antrum, with mild active oozing, consistent with GAVE. APC was applied to this area with adequate hemostasis. The duodenum was normal. Recommendation: - BID PPI. Repeat EGD for recurrent anemia. - Discharge patient to home. Tan Funk M.D. Tan Funk MD 05/23/2017 2:52:51 PM This report has been signed electronically. Note Initiated On: 05/23/2017 1:31 PM I attest to the content of the Intraoperative Record and orders documented therein, exceptions below
== END | disposition home or self-care (01) ==
LOC: C.GI 11:52
PROVIDERS: ATTEND Internal Medicine Gastroenterology
DX: I85.00 Esophageal varices without bleeding (principal); K22.2 Esophageal obstruction; K31.89 Other diseases of stomach and duodenum; K74.60 Unspecified cirrhosis of liver; F17.210 Nicotine dependence, cigarettes, uncomplicated; Z79.899 Other long term (current) drug therapy

== ENCOUNTER 2017-06-09 11:10 | Emergency (ER) | payer BC ==
[~2017-06-09] VITALS: Ht 165.1 cm; Wt 81.0 kg
[~2017-06-09 11:10] MED LIST changes: -ALBUMIN HUMAN 25% 12.5 GM/50 ML VIAL IV ONE; -ETHANOLAMINE OLEATE 5% 2 ML AMP ONE; -FENTANYL CITRATE INJ 50 MCG/1 ML 2 ML VIAL ONE; -LACT10SO30 PO; -LIDOCAINE HCL 2% 2 ML VIAL (20MG/ML) ONE; -ONDANSETRON INJ 2 MG/ML 2 ML VIAL ONE; -PROPOFOL IV EMULSION 10 MG/ML 20 ML VIAL IV ONE
[2017-06-09 11:12] VITALS: TEMP 36.7; Ht 165.1 cm; Wt 81.0 kg
[2017-06-09] MEDS ORDERED: SPRN100 PO (11:37)
[2017-06-09] MEDS ORDERED: OXYCODONE HCL IR 5 MG TAB (IMMEDIATE RELEASE) PO STA (12:16)
--- NOTE | 2017-06-09 12:16 | DIAGNOSTIC IMAGING REPORT ---
R SHOULDER MIN 2 VIEWS ROUTINE CLINICAL HISTORY: 52 years-old Female presenting with R shoulder injury. TECHNIQUE: Internal rotation, Grashey, and transscapular Y views of the right shoulder were obtained. COMPARISON: Correlation made to chest x-ray from 05/11/2017. FINDINGS: Mildly comminuted surgical neck fracture of the right humerus. Mild apex lateral angulation at the fracture plane. There is 7 mm of diastases of the lateral cortical margin of the distal fracture fragment. There is also some foreshortening medially secondary to angulation. The right humeral head remains congruent on the bony glenoid fossa. The fracture planes do not appear to involve the tubercles. Small fracture fragment posterior laterally slightly displaced from the fracture plane. Acromioclavicular joint congruent. Visualized portion of the right lung clear. IMPRESSION: Mildly comminuted, angulated, and displaced fracture of the surgical neck of the right humerus. Electronically signed by: Som Moore M.D. 06/09/2017 12:15 PM Dictated Date/Time: 06/09/2017 12:13 PM
--- NOTE | 2017-06-09 12:28 | EMERGENCY ROOM VISIT NOTE ---
History First contact with patient: 11:26 Chief Complaint: SHOULDER PAIN Stated Complaint: RIGHT ARM AND SHOULDER PAIN FROM FALL History of Present Illness The patient is a 52 year old female who presents to the Emergency Room with complaints of right shoulder pain after she fell off of a step stool last night and fell into a corner wall before falling onto a table. The patient reports that the impact against the wall is what caused most of the pain. She denies any other injuries from the fall, including head injury, neck pain or back pain. She denies any chest pain, shortness of breath or abdominal pain. The patient reports that she is to soon be placed on the liver transplant list. The patient currently rates her discomfort an 8 out of 10. She took an oxycodone at home for the pain. Review of Systems 10 system review was performed and was negative except for pertinent positives and negatives as indicated in history of present illness Past Medical/Surgical History Medical Problems: (1) AC ALCOHOLIC HEPATITIS (2) Cirrhosis with alcoholism (3) Cirrhosis, alcoholic (4) Colitis (5) Decompensated hepatic cirrhosis (6) DEPRESSIVE DISORDER NEC (7) DUODENAL ULCER NOS (8) ESOPHAGEAL REFLUX (9) Esophageal varices (10) H/O ETOH abuse (11) Hyponatremia (12) Syncope and collapse Family History FH: CAD (coronary artery disease) FATHER Stroke MOTHER Social History Smoking Status: Current Every Day Smoker Alcohol Use: heavy Drug Use: none, other Marital Status: Housing Status: lives with family Occupation Status: disabled Current/Historical Medications Scheduled Cholecalciferol (D3 High Potency), 1 TAB PO BID Folic Acid (Folic Acid), 1 MG PO QAM Lactulose (Chronulac), 15 ML PO TID Midodrine (Midodrine HCl), 7.5 MG PO TID@0800,1200,1600 Multivitamins/Minerals (Mvi With Minerals), 1 TAB PO DAILY Pantoprazole (Protonix), 40 MG PO BID Rifaximin (Xifaxan), 550 MG PO BID Spironolactone (Spironolactone), 150 MG PO DAILY Thiamine HCl (Vitamin B-1), 100 MG PO Q24H Scheduled PRN Lorazepam (Ativan), 0.5 MG PO BID PRN for Anxiety Oxycodone HCl (Oxycodone HCl), 5 MG PO Q6 PRN for Pain Physical Exam Vital Signs Date Time Temp Pulse Resp B/P (MAP) Pulse Ox O2 Delivery O2 Flow Rate FiO2 06/09/17 11:12 36.7 93 18 108/62 99 Physical Exam CONSTITUTIONAL: Healthy and well nourished. Alert and oriented X 3 with positive affect. Patient appears in mild to moderate discomfort from pain. GCS 15. HEENT: Normocephalic, atraumatic. Pupils equal, round and reactive. NECK: Full active range of motion without discomfort. RESPIRATORY: Clear to auscultation bilaterally with no wheezing, crackles, rhonchi or stridor. CARDIOVASCULAR: Regular rate and rhythm with no murmurs, rubs or gallops. GASTROINTESTINAL: Bowel sounds present in all quadrants. MUSCULOSKELETAL: Examination shows general tenderness to palpation about the shoulder. She has no focal tenderness over the distal clavicle or acromioclavicular joint. Flexion and extension, as well as pronation and supination does not cause any elbow discomfort. Remaining musculoskeletal exam is unremarkable. Distal pulses are intact. NEUROLOGIC: No focal neurologic deficits noted. Right hand and fingers are sensory intact. Medical Decision & Procedures ER Provider Diagnostic Interpretation: My interpretation of right shoulder x-rays confirms a comminuted, displaced and angulated proximal humerus fracture. Radiologist report is as follows: R SHOULDER MIN 2 VIEWS ROUTINE CLINICAL HISTORY: 52 years-old Female presenting with R shoulder injury. TECHNIQUE: Internal rotation, Grashey, and transscapular Y views of the right shoulder were obtained. COMPARISON: Correlation made to chest x-ray from 05/11/2017. FINDINGS: Mildly comminuted surgical neck fracture of the right humerus. Mild apex lateral angulation at the fracture plane. There is 7 mm of diastases of the lateral cortical margin of the distal fracture fragment. There is also some foreshortening medially secondary to angulation. The right humeral head remains congruent on the bony glenoid fossa. The fracture planes do not appear to involve the tubercles. Small fracture fragment posterior laterally slightly displaced from the fracture plane. Acromioclavicular joint congruent. Visualized portion of the right lung clear. IMPRESSION: Mildly comminuted, angulated, and displaced fracture of the surgical neck of the right humerus. Medications Administered Medications (Trade) Dose Ordered Sig/Betty Route Start Time Stop Time Status Last Admin Dose Admin Oxycodone HCl (Roxicodone Immediate Rel Tab) 5 mg NOW STAT PO 06/09/17 12:16 06/09/17 12:19 DC 06/09/17 12:21 5 MG ED Course Patient history and physical exam were performed. Nurse's notes were reviewed. Vital signs were reviewed, showing an elevated blood pressure 169/111. The patient appears in moderate discomfort, but refused any initial analgesics. X- rays of the right shoulder confirms a proximal humerus fracture. X-rays were reviewed with the patient. A shoulder immobilizer was applied. The patient was provided contact information for [facility] for further follow-up. Review of the [place] Prescription Drug Monitoring Program shows that the patient receives frequent prescriptions from her PCPs office. The patient was instructed to contact her PCP regarding further pain management options. The patient was encouraged to intermittently apply ice to the shoulder. The patient voiced understanding of all discharge instructions, and rated her discomfort a 7 out of 10 at the time of discharge. She was administered and OxyIR 5 mg just prior to discharge. The patient was advised that her blood pressure was elevated at 169/111, which may be secondary to pain. She was encouraged to follow-up with her PCP for a blood pressure recheck. Medical Decision [place] Drug Monitoring Program Search Results: patient reviewed within database, see additional documentation Head Trauma GCS Score: 15 Medication Reconcilliation Current Medication List: was personally reviewed by me Blood Pressure Screening Patient's blood pressure: Elevated blood pressure Blood pressure disposition: Elevated BP felt to be situational, Referred to PCP Impression Primary Impression: Closed fracture of right proximal humerus Additional Impression: Fall from ladder Departure Information Referrals Stef Hylton D.O. (PCP) Patient Instructions [facility] Problem Qualifiers Primary Impression: Closed fracture of right proximal humerus Encounter type: initial encounter Fracture morphology: other fracture Fracture alignment: displaced Qualified Codes: S42.291A - Other displaced fracture of upper end of right humerus, initial encounter for closed fracture Additional Impression: Fall from ladder Encounter type: initial encounter Qualified Codes: W11.XXXA - Fall on and from ladder, initial encounter
[2017-06-09 12:56] VITALS: BP 105/45; PULSE 72; O2SAT 95
== END 2017-06-09 12:58 | disposition home or self-care (01) ==
LOC: C.EDB 11:11 → C.EDD 12:58
DX: S42.301A Unspecified fracture of shaft of humerus, right arm, initial encounter for closed fracture (principal); W17.89XA Other fall from one level to another, initial encounter; K21.9 Gastro-esophageal reflux disease without esophagitis; F32.9 Major depressive disorder, single episode, unspecified; K70.30 Alcoholic cirrhosis of liver without ascites; F17.200 Nicotine dependence, unspecified, uncomplicated; Z87.19 Personal history of other diseases of the digestive system; Z79.899 Other long term (current) drug therapy; Z82.49 Family history of ischemic heart disease and other diseases of the circulatory system; Z82.3 Family history of stroke

== ENCOUNTER 2017-06-13 16:11 | Inpatient (IN) | payer BC ==
[~2017-06-13] VITALS: Ht 165.1 cm; Wt 76.2 kg
[~2017-06-13 16:11] MED LIST changes: -CPR500 PO; -FURO40TA3 PO; +LACT10SO53 PO; -LCTS240 PO; -PRMT10 PO; -SPR25 PO; +THIA100T27 PO; -THM100 PO
--- NOTE | 2017-06-13 18:00 | NUR ---
Patient admitted to room 233 in stable condition. Oriented to room and call clark. VS stable. is at the bedside. Dr. Martell notified of patient's arrival. Call clark is in reach.
[2017-06-13 18:23] VITALS: BP 109/60; PULSE 77; TEMP 36.6; O2SAT 98
[2017-06-13] MEDS ORDERED: PRMT10 PO (18:49)
[2017-06-13 19:50] VITALS: BP 101/49; PULSE 78; TEMP 36.6; O2SAT 96
[2017-06-13 19:56] LABS: HEMOGLOBIN 8.3 g/dL (12.0-16.0); MEAN CELL VOLUME 99.6 fL (80-100); MEAN CORPUSCULAR HEMOGLOBIN 34.4 pg (25-34); MEAN CORPUSCULAR HGB CONC 34.6 g/dl (32-36); MEAN PLATELET VOLUME 9.6 fL (7.4-10.4); PLATELET COUNT 208 K/uL (130-400); RED CELL DISTRIBUTION WIDTH CV 19.7 % (11.5-14.5); RED CELL DISTRIBUTION WIDTH SD 70.8 fL (36.4-46.3); WHITE BLOOD COUNT 7.79 K/uL (4.8-10.8)
[2017-06-13 20:00] VITALS: O2SAT 96
--- NOTE | 2017-06-13 20:00 | NUR ---
A: Patient resting in bed. Denies any pain or SOB. NSR on the monitor. One assist with ambulation. Right arm is in a sling due to a recent fall resulting in a broken arm. Call clark is in reach. Will continue to monitor.
--- NOTE | 2017-06-13 20:04 | HISTORY & PHYSICAL EXAMINATION ---
DATE OF ADMISSION: 06/13/2017 PRIMARY CARE PHYSICIAN: Stef Hylton DO. CHIEF COMPLAINT: Increasing weight with increasing ascites and shortness of breath with wheezing. HISTORY OF PRESENT COMPLAINT: She is a 52-year-old female with significant past medical history of alcoholic cirrhosis with esophageal varices, history of recurrent ascites, hepatic encephalopathy, depression, GERD, iron deficiency anemia, hyponatremia. Apparently has been complaining of increasing shortness of breath with wheezing for the last few days. She also has tense ascites associated with it and it has been difficult for her to move around with fluid overload. She was also noticed to have increasing BUN and creatinine recently on a blood test and that creatinine went up from 1.2-2.2. From that point, she was advised to come to the hospital for further evaluation and evaluated by nephrology and also GI to rule out any SBP. She does have shortness of breath on exertion and she is generally weak and lethargic, but she denies to have any chest pain, any palpitation. She does have shortness of breath on exertion. She has abdominal discomfort with tense ascites and also she has ongoing swelling of the legs. She denies to have any fever, chills or rigors. She denies any problem with urine and her bowel has been moving about 3 times a day with lactulose. PAST MEDICAL HISTORY: Significant for alcoholic cirrhosis with esophageal varices, history of ascites, history of hepatic encephalopathy, depression, GERD, iron deficiency anemia, hyperlipidemia. PAST SURGICAL HISTORY: Significant for delivery, ligation of the oviduct, and upper endoscopy quite a few times which showed esophageal varices secondary to portal hypertension and gastropathy. SOCIAL HISTORY: She is . She lives with her . She has 5 children. She used to use alcohol but no more. She does not smoke and she has been reasonably ambulant. FAMILY HISTORY: Significant that paternal grandmother had breast cancer. Mother at the age of 75 from a stroke. Father at the age of 49 with cause unknown. REVIEW OF SYSTEMS: All other systems reviewed are unremarkable except for those mentioned in history of present complaint. ALLERGIES: NKDA. MEDICATIONS: As an outpatient, she has been taking oxycodone 5/325 one tablet every 8 hours as needed, spironolactone 150 mg daily, lorazepam 0.5 mg tablet 2 times daily as needed, midodrine 2.5 mg tablet daily, torsemide 80 mg 2 times daily, rifaximin 550 mg 1 tablet 2 times daily, folic acid 1 mg daily, cholecalciferol 80 international units daily, ammonium lactate as directed, lactulose 30 grams 3 times daily, thiamine 100 mg daily, multivitamin 1 tablet daily, Protonix 40 mg daily, and albuterol HFA inhaler 4 puffs q.i.d. as needed. PHYSICAL EXAMINATION: GENERAL: On examination on the medical floor, she was having moderate distress at rest with shortness of breath. VITAL SIGNS: Temperature 36.6, pulse is 77, blood pressure 109/60, saturation 98% on room air. HEENT: Unremarkable. NECK: Supple. No JVD, no bruit. CHEST: Decreased breath sounds with occasional wheezing mostly anteriorly and minimal crackles at the bases. HEART: S1, S2 regular, no murmur. ABDOMEN: Distended and tender moderate amount of ascites clinically. EXTREMITIES: 2+ edema bilaterally. Peripheral pulses were not palpable. MUSCULOSKELETAL: Did not show any acute arthritis. CENTRAL NERVOUS SYSTEM: She is alert, awake, and oriented x3. She is generally weak, but no focal sensory or motor deficit appreciated. LABORATORY DATA: Noted from clinic; H&H that was done on 20 of May 8.8/25.3. Her INR was 1.83 at that time. Platelet count 211. Basic metabolic panel that was done on of this month, sodium was 126 significant drop from 06/03/2017 from 132, potassium 4.4, chloride 85, carbon dioxide 29, BUN 25.2 and creatinine 2.2. Creatinine went up from 1.2-2.2. Other labs, EKG and chest x-ray pending from the hospital. IMPRESSION AND PLAN: 1. Acute kidney injury with chronic kidney disease. The patient will be admitted to telemetry unit. May have Hepatorenal syndrome. We will consult nephrology for further evaluation and management of fluid overload. Depending on the x-ray findings, we will give her 1 dose of Lasix IV tonight. Her torsemide has been on hold and spironolactone has been decreased as per the outpatient note. 2. Cirrhosis with tense ascites. She will need to have paracentesis, most likely tomorrow. Ascitic fluid to rule out any SBP, will not give any antibiotic as of yet. Fluid will be taken out via paracentesis 6-10 liters depending on the ultrasound findings. 3. Fluid overload as mentioned earlier. She does have wheezing most likely secondary to fluid overload in the lung. We will continue with nebulized bronchodilator and albuterol as needed. She may need to have a pulmonary evaluation provided the condition does not get any better. 4. Hyponatremia, mostly consequences of cirrhosis and also diuretics. We will monitor sodium level while in the hospital. 5. Gastroesophageal reflux disease. We will continue with Protonix. 6. Deep venous thrombosis prophylaxis, we will await start of heparin. Code status. She will be full code. Case was discussed with patient and . In my clinical judgment, the beneficiary meets criteria as per CMS for 2 midnight stay in the hospital. CAROL
[2017-06-13 20:11] LABS: INR 1.5 (0.9-1.1)
[2017-06-13 20:13] VITALS: Ht 165.1 cm; Wt 76.2 kg
[2017-06-13 20:17] LABS: ALT/SGPT 19 U/L (12-78); AST/SGOT 46 U/L (15-37); BLOOD UREA NITROGEN 37 mg/dl (7-18); CALCIUM 8.8 mg/dl (8.5-10.1); CARBON DIOXIDE 28 mmol/L (21-32); CREATININE 3.17 mg/dl (0.60-1.20); GLUCOSE 92 mg/dl (70-99); SODIUM 121 mmol/L (136-145)
[2017-06-13 20:22] LABS: ALKALINE PHOSPHATASE 193 U/L (45-117); PHOSPHORUS 3.7 mg/dl (2.5-4.9); TOTAL PROTEIN 5.9 gm/dl (6.4-8.2)
--- NOTE | 2017-06-13 20:24 | DIAGNOSTIC IMAGING REPORT ---
CHEST ONE VIEW PORTABLE HISTORY: Congestive heart failure. COMPARISON: Chest 05/13/2017. FINDINGS: No pneumothorax. Small to moderate left pleural effusion has increased in size. Linear densities within the left mid to lower lung zone are again noted and may represent atelectasis or scarring area the right lung is clear. The heart is stable in size. IMPRESSION: Increase in size in the small to moderate left pleural effusion. No evidence for pulmonary edema. Electronically signed by: Michael De Leon M.D. 06/13/2017 8:23 PM Dictated Date/Time: 06/13/2017 8:22 PM
[2017-06-13] MEDS: OXYCODONE HCL IR 5 MG TAB (IMMEDIATE RELEASE) PO PRN (20:30)
[2017-06-13] MEDS: THIAMINE HCL 100 MG TAB PO SCH (20:30)
[2017-06-13] MEDS: LACTULOSE SYRUP 20 GM/30 ML UDC PO SCH (20:31)
[2017-06-13] MEDS: PANTOprazole SOD 40 MG TAB PO SCH (20:31)
[2017-06-13] MEDS: RIFAXIMIN TAB 550 MG TAB PO SCH (20:32)
[2017-06-13] MEDS: CHOLECALCIFEROL 400 INTER.UNIT TAB PO SCH (20:32)
[2017-06-13] MEDS: HEPARIN SOD 5000 UNIT/0.5 ML CARP SQ SCH (20:33)
[2017-06-13 21:50] VITALS: PULSE 91; O2SAT 97
[2017-06-13] MEDS: LEVALBUTEROL 0.31MG/3 ML VIAL INH SCH (21:50)
[2017-06-13] MEDS: MIDODRINE 10 MG TAB PO SCH (22:13)
[2017-06-13 23:40] VITALS: BP 100/51; PULSE 90; TEMP 36.8; O2SAT 90
[2017-06-14] VITALS (11 sets, daily range): BP systolic 91–114; BP diastolic 42–68; PULSE 79–99; TEMP 36.4–37.3; O2SAT 88–97
--- NOTE | 2017-06-14 00:04 | NUR ---
A: Assessment completed- see EMR for full detail; VSS, - see EMR; AA&Ox4, Appropriate; NSR, noted on monitor; Denies CP/SOB, On room Air; pt. denies pain at this time; right arm in sling; abdomen distended and firm, pt denies abdominal pain; Pt. currently resting in bed; no needs apparent or verbalized at this time; IV site intact; labs reviewed; safety reviewed; call-clark & items of necessity in reach, will continue to monitor.
[2017-06-14] MEDS: LEVALBUTEROL 0.31MG/3 ML VIAL INH SCH ×4 (03:00→19:09)
[2017-06-14] MEDS: OXYCODONE HCL IR 5 MG TAB (IMMEDIATE RELEASE) PO PRN ×4 (04:13→22:29)
--- NOTE | 2017-06-14 04:19 | NUR ---
A: Assessment completed- see EMR for full detail; VSS, - see EMR; AA&Ox4, Appropriate; NSR, noted on monitor; Denies CP/SOB, On 2 LPM; pt. reports pain in right arm at this time - medicated per order with oxy IR -see eMAR; Pt. currently resting in bed; ambulated BR with supervision to void, and returned to bed;adjusted arm sling for pt. comfort. no needs apparent or verbalized at this time; IV site intact; call-clark & items of necessity in reach, will continue to monitor.
[2017-06-14] MEDS: HEPARIN SOD 5000 UNIT/0.5 ML CARP SQ SCH ×3 (06:10→21:51)
[2017-06-14] MEDS: MIDODRINE 10 MG TAB PO SCH ×2 (07:51→20:35)
[2017-06-14] MEDS: RIFAXIMIN TAB 550 MG TAB PO SCH ×2 (07:52→20:35)
[2017-06-14] MEDS: CEROVITE ADV FORMULA TAB PO SCH (07:52)
[2017-06-14] MEDS: PANTOprazole SOD 40 MG TAB PO SCH ×2 (07:52→20:35)
[2017-06-14] MEDS: CHOLECALCIFEROL 400 INTER.UNIT TAB PO SCH ×2 (07:52→20:35)
[2017-06-14] MEDS ORDERED: MIDODRINE 2.5 MG TAB PO SCH ×2 (08:00→11:00)
[2017-06-14] MEDS ORDERED: ALBUMIN HUMAN 25% 12.5 GM/50 ML VIAL IV SCH (08:00)
--- NOTE | 2017-06-14 08:00 | NUR ---
Patient assessed around this time. vss. no c/o nausea sob. Patient SR on monitor. Patient c/o R shoulder pain, no pain medication available at this time, attempted repositioning. Will call Dr. Ramirez to discuss pain medication orders/ regimen. Patient for paracentesis today at 0900.
[2017-06-14] MEDS: LACTULOSE SYRUP 20 GM/30 ML UDC PO SCH ×3 (09:00→20:36)
[2017-06-14] MEDS ORDERED: SPIRONOLACTONE 100 MG TAB PO SCH (09:00)
--- NOTE | 2017-06-14 09:00 | NUR ---
Spoke with Dr. Ashley sewell to give early dose of prn pain medication prior to paracentesis and implemented.
--- NOTE | 2017-06-14 09:17 | NEPHROLOGY CONSULTATION ---
DATE OF CONSULTATION: 06/14/2017 ATTENDING OF RECORD: Dr. Ramirez. REASON FOR CONSULTATION: TRACY and volume overload. HISTORY OF PRESENT ILLNESS: This is a 52-year-old female with alcoholic liver cirrhosis, who was sent in to the Emergency Room with worsening volume overload and worsening kidney function and hyponatremia. The patient has had multiple hospitalizations this year for volume overload and worsening kidney function. Her last paracentesis she thinks was in the beginning of April. The patient is currently getting worked up for the liver transplant list. Unfortunately, the patient recently fell while putting up [email or web address] decorations and hurt her right shoulder and she is currently in a sling and the patient is on oxycodone for the pain management. The patient started to become more fluid overloaded and creatinine started to worsen and she has been started on albumin. The patient is otherwise doing okay. PAST MEDICAL HISTORY/PAST SURGICAL HISTORY: Alcoholic cirrhosis, a history of hyponatremia in the past, +anxiety, and depression. FAMILY HISTORY: Significant for heart disease and significant for breast cancer. SOCIAL HISTORY: No longer smokes. No longer drinks. no drugs. REVIEW OF SYSTEMS: Positive right shoulder pain from previous injury. Positive shortness of breath with exertion. Positive abdominal distention. Positive swelling. No chest pain. No headaches. No blurry vision. No dysphagia. No rash or itching. All other review of systems otherwise negative. CURRENT MEDICATIONS: Folic acid 1 mg daily, multivitamin daily, spironolactone 150 mg daily, albumin 25 grams x2 doses today, heparin 5000 units subQ q. 8 hours, vitamin D 400 units b.i.d., lactulose 10 grams p.o. t.i.d., Protonix 40 mg p.o. b.i.d., rifaximin 550 mg p.o. b.i.d., midodrine 10 mg p.o. b.i.d., and thiamine 100 mg daily. PHYSICAL EXAMINATION: VITAL SIGNS: Temperature 37, pulse 84, respiratory rate 18, blood pressure 145 and satting 93% on room air. GENERAL: Awake, alert, and oriented x3. EYES: +scleral icterus. NECK: Supple. PULMONARY: Decreased breath sounds at the bases. CARDIAC: Regular rate and rhythm. ABDOMEN: Distended. Bowel sounds positive. EXTREMITIES: +2 pitting edema. NEUROLOGICALLY: Nonfocal. DERMATOLOGIC: No rash or ulcers noted. LABORATORY DATA: White count 7, H&H 8.3 and 24, and platelet count is 208. Sodium level is 121, potassium is 4, chloride is 87, bicarbonate is 28, BUN is 37, and creatinine is 3.17. Lactic acid is 2, calcium is 8.8, phosphorus 3.7, and magnesium is 2. T-bili 7.1. Albumin is 3. INR is 1.5. ASSESSMENT AND PLAN: 1. Hyponatremia. The patient with hyponatremia in the setting of volume overload. The patient should be on 1 liter fluid restriction, which will place on today. Hopefully, sodium levels improve as we mobilize extra fluid. 2. Acute kidney injury. Creatinine up to 3.17 last night and currently getting albumin 25 grams x2 doses today. Would like to check urine sodium to see if it is low and consider giving 100 grams of albumin today to try to help mobilize extra fluid. Greatly appreciate GI as well as primary hospitalist's help. Unclear if this is hepatorenal syndrome and if the patient would benefit from octreotide. Currently, on spironolactone 150 mg a day as well as midodrine 10 mg p.o. b.i.d. and the lactulose. Would stop the spironolactone for now. We will check a urine sodium. Increase the albumin to [address] the patient on a fluid restriction. I appreciate the consultation. Case discussed with GI and Primary Hospitalist who agree with plan. CAROL
--- NOTE | 2017-06-14 11:28 | Gastrointestinal Consultation ---
Gastrointestinal Consultation Date of Consultation: Jun 14, 2017 Attending Physician: Nir Ramirez Consulting Physician: Julian Manzanares Reason for Consultation: Cirrhosis History of Present Illness Patient is a 52 year old female w hx of ETOH cirrhosis, admitted for worsening ascites, edema and labs showing ARF and hyponatremia. Na 121, Cr 3.17, LFT: Tbili 7.1, AST 46, ALT 15. She fell while hanging [employer] decorations 2 days ago and broke R humerus, now in a sling. She feels tired, and abd getting more distended lately. Denies any changes in BM habits or blood in stools. She denies any ETOH intake since 11/2016. Followed by Dr. Funk and last seen early May. Was instructed to hold Lasix but continue Spironolactone: 150mg daily, Demadex 80mg BID. She is also on Midodrine 7.5mg TID. She reports being compliant with her diuretics. She is not a TIPS candidate due to high MELD 30. [place] [facility] [place] is scheduled to undergo u/s guided paracentesis. Last LVP done 05/27, 7L removal. She had been getting paracentesis every 2 weeks or so with 5-7L ascites removal. Last EGD: 05/23/17 - Grade 1 varices. AMRIT, KURT'd. Last colonoscopy: 12/15/2009 - diverticulosis. Repeat in 10 yrs time. HCC screening: liver u/s 02/2017 - no hepatic masses. Past Medical/Surgical History Medical Problems: (1) Abdominal pain Status: Acute (2) Abdominal pain, left upper quadrant Status: Acute (3) Acute renal failure (ARF) Status: Acute (4) Alcoholic cirrhosis of liver with ascites Status: Acute (5) Anasarca Status: Acute (6) Ascites Status: Acute (7) Cirrhosis Status: Acute (8) Closed fracture of right proximal humerus Status: Acute (9) Diarrhea Status: Acute (10) Elevated blood pressure reading Status: Acute (11) Fall from ladder Status: Acute (12) GI bleed Status: Acute (13) Hypoalbuminemia Status: Acute (14) Hypokalemia Status: Acute (15) Hyponatremia Status: Acute (16) Hyponatremia Status: Acute (17) Hyponatremia Status: Acute (18) Liver failure Status: Acute (19) Syncope Status: Acute Past Medical History: See above, depression, anemia, hyperlipidemia. Past Surgical History: Csection, tubal ligation Family History FH: CAD (coronary artery disease) FATHER Stroke MOTHER Social History Smoking Status: Current Every Day Smoker Alcohol Use: heavy (states quit in November 2016) Drug Use: none, other Marital Status: Housing Status: lives with family Occupation Status: disabled Allergies Coded Allergies: No Known Allergies (Verified , 06/09/17) Current Medications Home Meds and Scripts Medications Dose Route/Sig Max Daily Dose Days Date Category Midodrine HCl (Midodrine) 10 Mg Tab 10 Mg PO BID 06/13/17 Reported Spironolactone 100 Mg Tab 150 Mg PO DAILY 06/09/17 Reported Oxycodone HCl 5 Mg Tab 5 Mg PO Q6 PRN 5 05/16/17 Rx Chronulac (Lactulose) 10 Gm/15 Ml Syrp 15 Ml PO TID 04/30/17 Reported D3 High Potency (Cholecalciferol) 400 Unit Tab 1 Tab PO BID 04/30/17 Reported Xifaxan (Rifaximin) 550 Mg Tab 550 Mg PO BID 30 03/15/17 Rx Folic Acid 1 Mg Tab 1 Mg PO QAM 30 03/01/17 Rx Mvi With Minerals (Multivitamins/Minerals) Tab 1 Tab PO DAILY 30 02/11/17 Rx Vitamin B-1 (Thiamine HCl) 100 Mg Tab 100 Mg PO Q24H 02/11/17 Rx Protonix (Pantoprazole Sodium) 40 Mg Tab 40 Mg PO BID 11/19/12 Reported Ativan (Lorazepam) 0.5 Mg Tab 0.5 Mg PO BID PRN 02/16/12 Reported Review of Systems Constitutional: + weakness, No fever, No chills Respiratory: No cough, No shortness of breath Cardiac: No chest pain Abdomen: + pain (due to distension ), No nausea, No vomiting, No GI bleeding Musculoskeletal: + see HPI Physical Exam Date Time Temp Pulse Resp B/P (MAP) Pulse Ox O2 Delivery O2 Flow Rate FiO2 06/14/17 08:00 Room Air 06/14/17 07:52 37.0 84 18 100/45 (63) 93 Room Air 06/14/17 07:02 83 16 96 Room Air 06/14/17 04:00 97 Room Air 06/14/17 03:40 37.1 92 18 110/52 (71) 91 Room Air 06/14/17 00:01 97 Room Air 06/13/17 23:40 36.8 90 18 100/51 (67) 90 Room Air 06/13/17 21:50 91 14 97 Room Air 06/13/17 20:13 Room Air 06/13/17 20:00 96 Room Air 06/13/17 19:50 36.6 78 20 101/49 (66) 96 Room Air 06/13/17 18:23 36.6 77 19 109/60 (76) 98 Room Air General Appearance: WD/WN, no apparent distress Eyes: normal inspection, PERRL, EOMI Neck: supple, no JVD, trachea midline Respiratory/Chest: normal breath sounds, no respiratory distress, no accessory muscle use Cardiovascular: regular rate, rhythm, no gallop, no murmur Abdomen: normal bowel sounds, non tender, + distended Extremities: + pertinent finding (R arm in sling: humerus fracture ) Neurologic/Psych: alert, normal mood/affect, oriented x 3 Skin: + pertinent finding (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, neck ) Laboratory Results Last 24 Hours Test 06/13/17 19:38 06/14/17 10:00 White Blood Count 7.79 K/uL Red Blood Count 2.41 M/uL Hemoglobin 8.3 g/dL Hematocrit 24.0 % Mean Corpuscular Volume 99.6 fL Mean Corpuscular Hemoglobin 34.4 pg Mean Corpuscular Hemoglobin Concent 34.6 g/dl RDW Standard Deviation 70.8 fL RDW Coefficient of Variation 19.7 % Platelet Count 208 K/uL Mean Platelet Volume 9.6 fL Prothrombin Time 15.7 SECONDS Prothromb Time International Ratio 1.5 Sodium Level 121 mmol/L Potassium Level 4.0 mmol/L Chloride Level 87 mmol/L Carbon Dioxide Level 28 mmol/L Anion Gap 6.0 mmol/L Blood Urea Nitrogen 37 mg/dl Creatinine 3.17 mg/dl Estimated GFR () 18.3 Estimated GFR (Non- 15.8 BUN/Creatinine Ratio 11.7 Random Glucose 92 mg/dl Lactic Acid Level 2.0 mmol/L Calcium Level 8.8 mg/dl Phosphorus Level 3.7 mg/dl Magnesium Level 2.0 mg/dl Total Bilirubin 7.1 mg/dl Direct Bilirubin 4.0 mg/dl Aspartate Amino Transf (AST/SGOT) 46 U/L Alanine Aminotransferase (ALT/SGPT) 19 U/L Alkaline Phosphatase 193 U/L Total Protein 5.9 gm/dl Albumin 3.0 gm/dl Peritoneal Fluid Albumin < 0.6 g/dl Peritoneal Fluid Glucose 92 mg/dl Impression Patient is a 52 year old female w ETOH cirrhosis presented w hyponatremia, volume overload w ascites, edema and worsening renal function. MELD: 33 Plan - Hx of variceal bleed, last EGD 04/2017 showed grade 1 varices. Not on non selective rhina, unsure why. At this point NSBB are contraindicated in view of TRACY. - Continue Xifaxan and Lactulose. - U/S guided paracentesis w fluid analysis. - Hold diuretics till kidney function improves. - Appreciate nephrology following: awaiting urine studies to r/o HRS. Albumin resuscitation, continue Midodrine, consider addition of Octreotide. Fluid restriction 1L recommended. - She would likely need rolling chair pusher SBP prophylaxis (Cipro) given low Protein in ascites fluid. Will defer use now until renal function improves. - Noted L pleural effusion ? hepatic hydrothorax, will monitor for now. - 2g Na diet. - Monitor labs. - Continue ETOH cessation, no APAP for >2g a day. I performed a history and physical examination of the patient, including specifically on physical exam - abdomen is soft.I have discussed the patient's management with Jeanie. Please refer to the METAL CNC OPERATOR's note for the documented findings and plan of care. 52 F with alcoholic cirrhosis, admitted with TRACY and hyponatremia, decompensated cirrhosis with ascites, seems to be refractory. Her MELD is high hence TIPS was deferred. Unlikely HRS. Continue to hold diuretics and give Albumin 1gm/kg , monitor her kidney function and electrolytes. Follow up with Renal. She has low Protein ascites with Low NA and CTP C and elevated bili hence she is a candidate for fci SBP prophylaxis.
[2017-06-14 12:07] LABS: CREATININE RANDOM URINE 47.5 mg/dl; POTASSIUM RANDOM URINE 16.1 mEq/L
[2017-06-14] MEDS: LORAZEPAM 0.5 MG TAB PO PRN ×2 (12:08→20:42)
[2017-06-14] MEDS: ALBUMIN HUMAN 25% 12.5 GM/50 ML VIAL IV SCH ×6 (13:20→21:41)
--- NOTE | 2017-06-14 16:00 | NUR ---
Patient assessed see EMR for more details. vss. no c/o nausea sob. see EMAR for pain med administration. SR on monitor. call clark in reach safety reviewed needs addressed.
[2017-06-14 17:49] LABS: CALCIUM 8.7 mg/dl (8.5-10.1); CREATININE 3.33 mg/dl (0.60-1.20); POTASSIUM 4.2 mmol/L (3.5-5.1)
--- NOTE | 2017-06-14 18:13 | Progress Note ---
Medicine Progress Note Date & Time of Visit: Jun 14, 2017 at 09:50. Subjective Pt was seen and examined Lying in bed with no distress Complaint of tenderness in her abdomen Complaint of SOB with exertion Denies any chest pain, fever and palpitation Objective Last 8 Hrs Date Time Temp Pulse Resp B/P (MAP) Pulse Ox O2 Delivery O2 Flow Rate FiO2 06/14/17 16:00 Room Air 06/14/17 15:57 36.7 87 16 95/42 (59) 90 Room Air 06/14/17 14:25 82 16 91 Room Air 06/14/17 12:03 36.9 79 18 95/50 (65) 92 Room Air 06/14/17 12:00 Room Air Physical Exam: General- No acute distress Head- atraumatic Eyes- PERRL, EOMI ENT- oropharynx clear Neck- supple, no JVD Lungs- decrease breath sound Heart- regular rhythm Abdomen- normal bowel sounds, soft Extremities-no calf tenderness, +edema Neuro- alert, oriented x 3; PERRL, EOMI Skin- warm & dry Laboratory Results: Last 24 Hours Test 06/13/17 19:38 06/14/17 10:00 06/14/17 10:40 06/14/17 17:08 White Blood Count 7.79 K/uL Red Blood Count 2.41 M/uL Hemoglobin 8.3 g/dL Hematocrit 24.0 % Mean Corpuscular Volume 99.6 fL Mean Corpuscular Hemoglobin 34.4 pg Mean Corpuscular Hemoglobin Concent 34.6 g/dl RDW Standard Deviation 70.8 fL RDW Coefficient of Variation 19.7 % Platelet Count 208 K/uL Mean Platelet Volume 9.6 fL Prothrombin Time 15.7 SECONDS Prothromb Time International Ratio 1.5 Sodium Level 121 mmol/L 124 mmol/L Potassium Level 4.0 mmol/L 4.2 mmol/L Chloride Level 87 mmol/L 88 mmol/L Carbon Dioxide Level 28 mmol/L 26 mmol/L Anion Gap 6.0 mmol/L 10.0 mmol/L Blood Urea Nitrogen 37 mg/dl 41 mg/dl Creatinine 3.17 mg/dl 3.33 mg/dl Estimated GFR () 18.3 17.3 Estimated GFR (Non- 15.8 14.9 BUN/Creatinine Ratio 11.7 12.3 Random Glucose 92 mg/dl 98 mg/dl Lactic Acid Level 2.0 mmol/L Calcium Level 8.8 mg/dl 8.7 mg/dl Phosphorus Level 3.7 mg/dl Magnesium Level 2.0 mg/dl Total Bilirubin 7.1 mg/dl Direct Bilirubin 4.0 mg/dl Aspartate Amino Transf (AST/SGOT) 46 U/L Alanine Aminotransferase (ALT/SGPT) 19 U/L Alkaline Phosphatase 193 U/L Total Protein 5.9 gm/dl Albumin 3.0 gm/dl Peritoneal Fluid Color YELLOW Peritoneal Fluid Appearance CLEAR Peritoneal Fluid WBC 76 /uL Peritoneal Fluid RBC < 3000 /uL Peritoneal Fld Mononuclear WBCs (%) 77.8 % Peritoneal Fld Polynuclear WBCs (%) 22.2 % Peritoneal Fluid Total Protein 0.7 g/dl Peritoneal Fluid Albumin < 0.6 g/dl Peritoneal Fluid LDH 26 IU Peritoneal Fluid Glucose 92 mg/dl Peritoneal Fluid Amylase 6 U/L Peritoneal Fluid Triglycerides 36 mg/dl Urine Osmolality 149 mOms/kg Urine Random Creatinine 47.5 mg/dl Urine Random Sodium 15 mEq/L Urine Random Potassium 16.1 mEq/L Est Creatinine Clear Calc Drug Dose 20.7 ml/min Date/Time Source Procedure Growth Status 06/14/17 10:00 Ascities Fluid Gram Stain - Final Resulted 06/14/17 10:00 Ascities Fluid Bacterial Culture Pending Resulted Assessment & Plan HEPATIC CIRRHOSIS/ALCOHOLIC LIVER DISEASE : H/o portal HTN with bleeding varices s/p banding. Presented with abdominal distention Last paracentesis on 05/27 where 7L ascites fluid removed Has been getting paracentesis every 2 weeks or so with 5-7L ascites removal. Not a TIPS candidate due to high MELD 30 Schedule to get u/s guided paracentesis this morning Spironolactone on hold due to elevated creatine Fluid restriction to 1 L and 2g Na restriction Will give albumin 100g today Continue Rifampin/Midodrine/Lactulose Will need to start on fpc cipro prophylaxis Gastro on board continue monitor HYPONATREMIA Possible due to vol overload for decompensated cirrhosis Na on admission 121 Na level 124 today Continue fluid 1L restriction. follow PRP Nephrology on board case discussed with Financial Auditor TRACY on CKD stage 3 Creatine on admission 3.17 Hold spironolactone Nephrology on board Continue monitor BMP HX OF ETOH ABUSE Reports abstinence since November Pt is counselled to Continue strict ETOH abstinence GERD Protonix BID ANEMIA OF CHRONIC DISEASE : Hbg on admission 8.3 No evidence of GI bleed Continue monitor cbc, transfuse prbc if Hb < 7 Pleural Effusion CXR showed increase in size in the small to moderate left pleural effusion. No evidence for pulmonary edema. Last thoracentesis on 05/15 where 1.1 L fluid removed Will reassess after the paracentesis stable DVT PROPHYLAXIS On heparin subq CODE STATUS Full Code Consultants: Nephro gastro Current Inpatient Medications: Current Inpatient Medications Medications (Trade) Dose Ordered Sig/Betty Route Start Time Stop Time Status Last Admin Dose Admin Heparin Sodium (Porcine) (Heparin Sq 5000 Unit/0.5ml) 5,000 unit Q8 SQ 06/13/17 22:00 07/13/17 21:59 06/14/17 06:10 5,000 UNIT Ondansetron HCl (Zofran Inj) 4 mg Q6H PRN IV 06/13/17 18:45 07/13/17 18:44 Cholecalciferol (Vitamin D Tab) 400 inter.unit BID PO 06/13/17 21:00 07/13/17 20:59 06/14/17 07:52 400 INTER.UNIT Folic Acid (Folvite Tab) 1 mg QAM PO 06/14/17 09:00 07/14/17 08:59 06/14/17 12:08 1 MG Lactulose (Chronulac Syrup) 10 gm TID PO 06/13/17 21:00 07/13/17 20:59 06/14/17 13:31 10 GM Lorazepam (Ativan Tab) 0.5 mg BID PRN PO 06/13/17 18:45 07/13/17 18:44 06/14/17 12:08 0.5 MG Multivitamins/ Minerals (Multivitamin W/ Minerals Tab) 1 tab DAILY PO 06/14/17 09:00 07/14/17 08:59 06/14/17 07:52 1 TAB Pantoprazole Sodium (Protonix Tab) 40 mg BID PO 06/13/17 21:00 07/13/17 20:59 06/14/17 07:52 40 MG Rifaximin (Xifaxan Tab) 550 mg BID PO 06/13/17 21:00 07/13/17 20:59 06/14/17 07:52 550 MG Thiamine HCl (Vitamin B-1 Tab) 100 mg Q24H PO 06/13/17 20:00 07/13/17 19:59 06/13/17 20:30 100 MG Oxycodone HCl (Roxicodone Immediate Rel Tab) 5 mg Q6 PRN PO 06/13/17 20:15 06/27/17 20:14 06/14/17 16:37 5 MG Midodrine (Proamatine Tab) 10 mg BID PO 06/13/17 21:00 07/13/17 20:59 06/14/17 07:51 10 MG Levalbuterol (Xopenex 0.31MG/ 3ML Neb) 0.31 mg Q6R INH 06/13/17 21:00 07/13/17 20:59 06/14/17 14:25 0.31 MG Albumin Human (Albumin 25%) 12.5 gm 1300,1301,1700,1701 IV 06/14/17 13:00 06/14/17 20:59 06/14/17 17:39 12.5 GM Albumin Human (Albumin 25%) 12.5 gm 2100,2101 IV 06/14/17 21:00 06/14/17 23:59
--- NOTE | 2017-06-14 19:24 | DIAGNOSTIC IMAGING REPORT ---
PARACENTESIS ABDOMEN W/IMAGING CLINICAL HISTORY: 52 years-old Female presenting with tense ascites. COMPARISON: 05/27/2017. PROCEDURE: The procedure and its risks, benefits and alternatives were discussed with the patient, and written informed consent was obtained. A timeout was performed to confirm patient identity. Limited ultrasound of the abdomen was performed to determine a safe needle entry site. The right lower quadrant was prepped and draped in the usual aseptic fashion. 1% Lidocaine was used for local anesthesia. A paracentesis needle-sheath was inserted into the peritoneal space using ultrasound guidance. The needle was removed and the sheath was connected to tubing and a vacuum suction device. A total of 6.5 L of clear yellow ascites was aspirated. The sheath was removed, and a dressing applied. The patient tolerated the procedure well. No immediate complications. IMPRESSION: Ultrasound-guided diagnostic and therapeutic paracentesis with aspiration of 6.5 L of ascites. Electronically signed by: Som Moore M.D. 06/14/2017 7:22 PM Dictated Date/Time: 06/14/2017 7:22 PM
[2017-06-14] MEDS: THIAMINE HCL 100 MG TAB PO SCH (19:46)
--- NOTE | 2017-06-14 19:49 | NUR ---
A: Full assessment complete. See EMR. Pt is A&O x 4. SR 90s with PACs on the monitor. RA. Saline locked x 1. Right arm in sling. Hand warm with good radial pulse noted. Pt denies having any numbness/tingling in arm/hand. Dressing over right lower abd site S/P paracentesis clean/dry/intact. C/O pain in right arm. Previously medicated for pain. See EMAR. No other needs verbalized or apparent at this time. Will continue to monitor. Call clark in reach.
--- NOTE | 2017-06-14 23:35 | NUR ---
A: Assessment remains unchanged. See EMR. BP in the 90s systolically. Sats noted to be 88-89% on RA. Placed on 2L via N/C. Sats now maintaining 92%. SR 90s with PACs on the monitor. Saline locked x 1. Previously medicated for pain. See EMAR. Pt verbalizes being comfortable. No needs verbalized or apparent at this time. Will continue to monitor. Call clark in reach.
[2017-06-15] VITALS (8 sets, daily range): BP systolic 99–111; BP diastolic 49–64; PULSE 86–99; TEMP 36.4–36.9; O2SAT 92–95
[2017-06-15] MEDS: LEVALBUTEROL 0.31MG/3 ML VIAL INH SCH ×3 (02:15→19:15)
[2017-06-15] MEDS: ONDANSETRON INJ 2 MG/ML 2 ML VIAL IV PRN (03:57)
--- NOTE | 2017-06-15 04:25 | NUR ---
A: HR noted to be in the 120s. Pt found sitting on edge of the bed dry heaving. PRN Zofran administered. Assisted back into bed. Discovered pt to be oriented to self only. Also discovered that pt urinated on chair by sink and all over floor. Blood noted from IV site on gown and linens. Pt reoriented. New site obtained. Bed alarm activated. Will continue to monitor.
[2017-06-15 07:36] LABS: HEMATOCRIT 21.4 % (37-47); HEMOGLOBIN 7.4 g/dL (12.0-16.0); MEAN CORPUSCULAR HEMOGLOBIN 34.6 pg (25-34); MEAN CORPUSCULAR HGB CONC 34.6 g/dl (32-36); MEAN PLATELET VOLUME 9.7 fL (7.4-10.4); PLATELET COUNT 184 K/uL (130-400); RED CELL DISTRIBUTION WIDTH CV 20.4 % (11.5-14.5); RED CELL DISTRIBUTION WIDTH SD 74.9 fL (36.4-46.3); WHITE BLOOD COUNT 5.95 K/uL (4.8-10.8)
[2017-06-15] MEDS: LACTULOSE SYRUP 20 GM/30 ML UDC PO SCH (07:52)
[2017-06-15] MEDS: MIDODRINE 10 MG TAB PO SCH ×3 (07:53→20:53)
[2017-06-15] MEDS: RIFAXIMIN TAB 550 MG TAB PO SCH ×3 (07:54→20:54)
[2017-06-15] MEDS: PANTOprazole SOD 40 MG TAB PO SCH ×2 (07:54→09:00)
[2017-06-15] MEDS: CEROVITE ADV FORMULA TAB PO SCH ×2 (07:55→09:00)
[2017-06-15] MEDS: CHOLECALCIFEROL 400 INTER.UNIT TAB PO SCH ×3 (07:55→20:53)
--- NOTE | 2017-06-15 08:00 | NUR ---
A-PATIENT OBTUNDED...CONFUSED...SHE SPIT FOOD OUT THAT I TRIED TO FEED HER.....TOO LETHARGIC TO TAKE PILLS....INCONTINENT STOOL....URINE ALSO.
[2017-06-15 08:15] LABS: ALBUMIN 3.6 gm/dl (3.4-5.0); CREATININE 3.1 mg/dl (0.60-1.20); POTASSIUM 4.2 mmol/L (3.5-5.1)
--- NOTE | 2017-06-15 10:00 | NUR ---
A- PATIENT CONTINUALLY TRYING TO GET OOB....1:1 ARCHITECTURE FACULTY MEMBER AT BEDSIDE.
--- NOTE | 2017-06-15 12:08 | NUR ---
A- PATIENT SPIT OUT PILLS THAT I FOR THE SECOND TIME TRIED TTO ADMINISTER TO HER....DR. AWARE THAT SHE IS REFUSING MEDS...1:1 NURSING ASSISSTANT AT BEDSIDE.....RIGHT ARM SLING INPLACE...PATIENT ASSISSTED TO BEDSIDE COMMODE FOR VOIDS...INCONTINENT STOOL.
[2017-06-15] MEDS ORDERED: OCTREOTIDE IV BOLUS & DRIP IV STA (12:42)
[2017-06-15] MEDS ORDERED: OCTREOTIDE ACETATE INJ 100 MCG in SYR 9 ML PHA PREPARED IV ONE (13:15)
[2017-06-15] MEDS ORDERED: LACTULOSE 200GM/700ML WTR ENEMA PR SCH (13:15)
[2017-06-15] MEDS ORDERED: UNIT DOSE COMPOUND PO SCH (14:00)
[2017-06-15] MEDS ORDERED: ALBUMIN HUMAN 25% 12.5 GM/50 ML VIAL IV SCH (14:00)
[2017-06-15] MEDS ORDERED: LACTULOSE SYRUP 10 GM/15 ML BTL 473 ML PO SCH (14:00)
[2017-06-15] MEDS ORDERED: LACTULOSE SYRUP 200 GM, WATER, STERILE IRRIG 700 ML, BARCODE IDENTIFIER 1 EA PR SCH ×2 (14:00)
[2017-06-15] MEDS: HEPARIN SOD 5000 UNIT/0.5 ML CARP SQ SCH (14:00)
--- NOTE | 2017-06-15 14:21 | Progress Note ---
Progress Note Date of Service Jun 15, 2017. Progress Note Events noted. Pt received mult doses of ativan and benzo yesterday, now lethargic and difficult to arouse requiring a sitter in the room. Pt spat out meds earlier today. Pt s/p 6.5 liter LVP yesterday, received 50 gm albumin yesterday with rise in albumin from 3 to 3.6. Date Time Temp Pulse Resp B/P (MAP) Pulse Ox O2 Delivery O2 Flow Rate FiO2 06/15/17 12:06 Room Air 06/15/17 08:00 Room Air 06/15/17 07:31 93 16 111/64 (80) 93 Room Air 06/15/17 07:01 96 16 93 Room Air 06/15/17 04:00 Room Air 06/15/17 03:45 36.4 99 16 99/54 (69) 94 Room Air 06/15/17 02:16 92 16 93 Room Air 06/15/17 00:01 Nasal Cannula 2.0 06/14/17 23:34 37.3 99 16 91/44 (60) 92 Nasal Cannula 2.0 06/14/17 20:02 36.9 98 20 108/44 (65) 90 Room Air 06/14/17 20:00 Room Air 06/14/17 19:10 81 16 91 Room Air 06/14/17 16:00 Room Air 06/14/17 15:57 36.7 87 16 95/42 (59) 90 Room Air 06/14/17 14:25 82 16 91 Room Air Lethargic, moans in respond to tactile stimulation Lungs: decr BS both bases Abd: soft but distended, tympanic Extrem: bilat mild pedal edema Last 24 Hours Test 06/14/17 17:08 06/15/17 06:42 06/15/17 06:43 06/15/17 09:52 Sodium Level 124 mmol/L 125 mmol/L Potassium Level 4.2 mmol/L 4.2 mmol/L Chloride Level 88 mmol/L 88 mmol/L Carbon Dioxide Level 26 mmol/L 26 mmol/L Anion Gap 10.0 mmol/L 11.0 mmol/L Blood Urea Nitrogen 41 mg/dl 41 mg/dl Creatinine 3.33 mg/dl 3.10 mg/dl Est Creatinine Clear Calc Drug Dose 20.7 ml/min 21.4 ml/min Estimated GFR () 17.3 18.8 Estimated GFR (Non- 14.9 16.3 BUN/Creatinine Ratio 12.3 13.4 Random Glucose 98 mg/dl 96 mg/dl Calcium Level 8.7 mg/dl 9.0 mg/dl Total Bilirubin 7.1 mg/dl Aspartate Amino Transf (AST/SGOT) 39 U/L Alanine Aminotransferase (ALT/SGPT) 15 U/L Alkaline Phosphatase 157 U/L Total Protein 6.0 gm/dl Albumin 3.6 gm/dl Globulin 2.4 gm/dl Albumin/Globulin Ratio 1.5 White Blood Count 5.95 K/uL Red Blood Count 2.14 M/uL Hemoglobin 7.4 g/dL Hematocrit 21.4 % Mean Corpuscular Volume 100.0 fL Mean Corpuscular Hemoglobin 34.6 pg Mean Corpuscular Hemoglobin Concent 34.6 g/dl RDW Standard Deviation 74.9 fL RDW Coefficient of Variation 20.4 % Platelet Count 184 K/uL Mean Platelet Volume 9.7 fL Ammonia 92.2 umol/L A/p: Cirrhosis HRS, likely type 1 on type 2 -- Midodrine dose increased, albumin 75 gm daily, begin octreotide drip, follow uop, cont fluid restriction. Volume overload with ascites, hepatic hydrothorax -- Diuretics on hold until intravsc volume has been repleted, consider resuming tomorrow with albumin. HE secondary to narcs, benzos -- NGT placed, will use lactulose and xifaxan via NGT; hold sedatives; will need enemas if pulls NG. Would consider transfer if creat continues to rise.
--- NOTE | 2017-06-15 14:48 | DIAGNOSTIC IMAGING REPORT ---
KUB HISTORY: check NGT placement COMPARISON: Chest and abdominal series 06/29/2014. FINDINGS: The bowel gas pattern is unremarkable. There are no dilated loops of small bowel to suggest an obstruction. Nasogastric tube terminates in the stomach. Small left pleural effusion. No pneumoperitoneum or pneumatosis. IMPRESSION: Nasogastric tube terminates in the expected location of the stomach. Electronically signed by: Michael De Leon M.D. 06/15/2017 2:46 PM Dictated Date/Time: 06/15/2017 2:45 PM
[2017-06-15] MEDS: OCTREOTIDE ACETATE INJ 500 MCG in NSS 100ML IV SCH ×2 (14:55→23:50)
--- NOTE | 2017-06-15 15:21 | NUR ---
A- DR. HARP HERE EARLIER...PLACED NG DOWN SO PATIENT CAN RECEIVE HER MEDS...KUB FOLLOWING NG PLACEMENT SHOWS NG IN STOMACH.....
--- NOTE | 2017-06-15 15:24 | NUR ---
A- SANDOSTATIN GTT INFUSING AFTER BOLUS...PATIENT REMAINS OBTUNDED. RESTLESS AT TIMES....1:1 NURSING ASSISSTANT AT BEDSIDE.
[2017-06-15 15:32] LABS: HEMATOCRIT 21.1 % (37-47); HEMOGLOBIN 7.4 g/dL (12.0-16.0)
[2017-06-15] MEDS: ALBUMIN HUMAN 25% 12.5 GM/50 ML VIAL IV SCH ×2 (16:07→20:54)
[2017-06-15] MEDS: LACTULOSE SYRUP 10 GM/15 ML BTL 473 ML PO SCH ×2 (16:16→20:55)
--- NOTE | 2017-06-15 16:46 | Nephrology Progress Note ---
Nephrology Progress Note Date of Service: Jun 15, 2017. Subjective seen on rounds this am; extremely somnolent; when awakened/aroused, does not follow directions tries to get out of bed; not taking pills spat food at nursing ; does not participate in ros Objective Date Time Temp Pulse Resp B/P (MAP) Pulse Ox O2 Delivery O2 Flow Rate FiO2 06/15/17 15:19 Room Air 06/15/17 15:18 36.4 93 18 104/61 (75) 95 06/15/17 12:06 Room Air 06/15/17 08:00 Room Air 06/15/17 07:31 93 16 111/64 (80) 93 Room Air 06/15/17 07:01 96 16 93 Room Air 06/15/17 04:00 Room Air 06/15/17 03:45 36.4 99 16 99/54 (69) 94 Room Air 06/15/17 02:16 92 16 93 Room Air 06/15/17 00:01 Nasal Cannula 2.0 06/14/17 23:34 37.3 99 16 91/44 (60) 92 Nasal Cannula 2.0 06/14/17 20:02 36.9 98 20 108/44 (65) 90 Room Air 06/14/17 20:00 Room Air 06/14/17 19:10 81 16 91 Room Air Physical Exam: GENERAL: lying flat on ra, somnolent, confused when awake EYES: +scleral icterus. NECK: Supple. PULMONARY: Decreased breath sounds at the bases. CARDIAC: Regular rate and rhythm. ABDOMEN: Distended. Bowel sounds positive. EXTREMITIES: +3-4 pitting edema/ anasarca; R arm in sling NEUROLOGICALLY: brenner, confused DERMATOLOGIC: No rash or ulcers noted. Current Inpatient Medications Medications (Trade) Dose Ordered Sig/Betty Route Start Time Stop Time Status Last Admin Dose Admin Heparin Sodium (Porcine) (Heparin Sq 5000 Unit/0.5ml) 5,000 unit Q8 SQ 06/13/17 22:00 07/13/17 21:59 Future hold 06/14/17 21:51 5,000 UNIT Ondansetron HCl (Zofran Inj) 4 mg Q6H PRN IV 06/13/17 18:45 07/13/17 18:44 06/15/17 03:57 4 MG Cholecalciferol (Vitamin D Tab) 400 inter.unit BID PO 06/13/17 21:00 07/13/17 20:59 06/14/17 20:35 400 INTER.UNIT Folic Acid (Folvite Tab) 1 mg QAM PO 06/14/17 09:00 07/14/17 08:59 06/14/17 12:08 1 MG Multivitamins/ Minerals (Multivitamin W/ Minerals Tab) 1 tab DAILY PO 06/14/17 09:00 07/14/17 08:59 06/14/17 07:52 1 TAB Pantoprazole Sodium (Protonix Tab) 40 mg BID PO 06/13/17 21:00 07/13/17 20:59 06/14/17 20:35 40 MG Rifaximin (Xifaxan Tab) 550 mg BID PO 06/13/17 21:00 07/13/17 20:59 06/14/17 20:35 550 MG Thiamine HCl (Vitamin B-1 Tab) 100 mg Q24H PO 06/13/17 20:00 07/13/17 19:59 06/14/17 19:46 100 MG Levalbuterol (Xopenex 0.31MG/ 3ML Neb) 0.31 mg Q6R INH 06/13/17 21:00 07/13/17 20:59 06/15/17 07:01 0.31 MG Albumin Human (Albumin 25%) 25 gm TID IV 06/15/17 14:00 06/18/17 13:59 06/15/17 16:07 25 GM Midodrine (Proamatine Tab) 15 mg BID PO 06/15/17 21:00 07/13/17 20:59 Octreotide Acetate 500 mcg/ Sodium Chloride 105 ml @ 10 mls/hr [id number] IV 06/15/17 13:15 07/15/17 13:14 06/15/17 14:55 10 MLS/HR Lactulose (Chronulac Syrup) 15 gm QID PO 06/15/17 17:00 07/13/17 20:59 06/15/17 16:16 15 GM Last 24 Hours Test 06/14/17 17:08 06/15/17 06:42 06/15/17 06:43 06/15/17 09:52 Sodium Level 124 mmol/L 125 mmol/L Potassium Level 4.2 mmol/L 4.2 mmol/L Chloride Level 88 mmol/L 88 mmol/L Carbon Dioxide Level 26 mmol/L 26 mmol/L Anion Gap 10.0 mmol/L 11.0 mmol/L Blood Urea Nitrogen 41 mg/dl 41 mg/dl Creatinine 3.33 mg/dl 3.10 mg/dl Est Creatinine Clear Calc Drug Dose 20.7 ml/min 21.4 ml/min Estimated GFR () 17.3 18.8 Estimated GFR (Non- 14.9 16.3 BUN/Creatinine Ratio 12.3 13.4 Random Glucose 98 mg/dl 96 mg/dl Calcium Level 8.7 mg/dl 9.0 mg/dl Total Bilirubin 7.1 mg/dl Aspartate Amino Transf (AST/SGOT) 39 U/L Alanine Aminotransferase (ALT/SGPT) 15 U/L Alkaline Phosphatase 157 U/L Total Protein 6.0 gm/dl Albumin 3.6 gm/dl Globulin 2.4 gm/dl Albumin/Globulin Ratio 1.5 White Blood Count 5.95 K/uL Red Blood Count 2.14 M/uL Hemoglobin 7.4 g/dL Hematocrit 21.4 % Mean Corpuscular Volume 100.0 fL Mean Corpuscular Hemoglobin 34.6 pg Mean Corpuscular Hemoglobin Concent 34.6 g/dl RDW Standard Deviation 74.9 fL RDW Coefficient of Variation 20.4 % Platelet Count 184 K/uL Mean Platelet Volume 9.7 fL Ammonia 92.2 umol/L Test 06/15/17 15:09 Hemoglobin 7.4 g/dL Hematocrit 21.1 % Assessment & Plan 52 y/o F w/ alcoholic liver cirrhosis admitted w/ worsening volume overload, tracy , hyponatremia w/ presenting Na 121. had 7L paracentesis 06/14. today very confused, floridly overloaded 1. Hypervolemic hyponatremia. sNa improving -cont 1 liter fluid restriction -ordered albumin IV again; some concern however to worsen volume status with this but goal is preserving renal function -cont to hold spironolactone -may need to do lasix/albumin combined if vol status worsens and no renal response w/ current approach -f/u GI recs -cont strict I/O 2. TRACY on CKD HRS 1 versus prerenal versus atn -ordered uacm -cont dual therapy for HRS (agree w/ gi rec for octreotide gtt); -cont midodrine 10 mg p.o. b.i.d. >her baseline creatinine through february 2017 was 0.8-0.9; then in march/ april more in mid 's; currently running low 3s, which is severe renal failure in this small framed liver pt >per GI consider transfer if worsening renal function Appreciate consult; will follow with you; care coordinated w/ Dr Ramirez
--- NOTE | 2017-06-15 18:47 | Progress Note ---
Medicine Progress Note Date & Time of Visit: Jun 15, 2017 at 14:37. Subjective Pt was seen and examined Lying in bed drowsy Pt slept the day and woke up around 4pm Pt said that her throat hurt Denies any chest pain and SOB Objective Last 8 Hrs Date Time Temp Pulse Resp B/P (MAP) Pulse Ox O2 Delivery O2 Flow Rate FiO2 06/15/17 15:19 Room Air 06/15/17 15:18 36.4 93 18 104/61 (75) 95 06/15/17 12:06 Room Air Physical Exam: General- No acute distress Head- atraumatic Eyes- PERRL, EOMI ENT- oropharynx clear Neck- supple, no JVD Lungs- decrease breath sound Heart- regular rhythm Abdomen- normal bowel sounds, soft Extremities-no calf tenderness, +edema Neuro- alert, oriented x 3; PERRL, EOMI Skin- warm & dry Laboratory Results: Last 24 Hours Test 06/15/17 06:42 06/15/17 06:43 06/15/17 09:52 06/15/17 15:09 Sodium Level 125 mmol/L Potassium Level 4.2 mmol/L Chloride Level 88 mmol/L Carbon Dioxide Level 26 mmol/L Anion Gap 11.0 mmol/L Blood Urea Nitrogen 41 mg/dl Creatinine 3.10 mg/dl Est Creatinine Clear Calc Drug Dose 21.4 ml/min Estimated GFR () 18.8 Estimated GFR (Non- 16.3 BUN/Creatinine Ratio 13.4 Random Glucose 96 mg/dl Calcium Level 9.0 mg/dl Total Bilirubin 7.1 mg/dl Aspartate Amino Transf (AST/SGOT) 39 U/L Alanine Aminotransferase (ALT/SGPT) 15 U/L Alkaline Phosphatase 157 U/L Total Protein 6.0 gm/dl Albumin 3.6 gm/dl Globulin 2.4 gm/dl Albumin/Globulin Ratio 1.5 White Blood Count 5.95 K/uL Red Blood Count 2.14 M/uL Hemoglobin 7.4 g/dL 7.4 g/dL Hematocrit 21.4 % 21.1 % Mean Corpuscular Volume 100.0 fL Mean Corpuscular Hemoglobin 34.6 pg Mean Corpuscular Hemoglobin Concent 34.6 g/dl RDW Standard Deviation 74.9 fL RDW Coefficient of Variation 20.4 % Platelet Count 184 K/uL Mean Platelet Volume 9.7 fL Ammonia 92.2 umol/L Assessment & Plan HEPATIC CIRRHOSIS/ALCOHOLIC LIVER DISEASE : H/o portal HTN with bleeding varices s/p banding. Presented with abdominal distention Last paracentesis on 05/27 where 7L ascites fluid removed Has been getting paracentesis every 2 weeks or so with 5-7L ascites removal. Not a TIPS candidate due to high MELD 30 Schedule to get u/s guided paracentesis this morning Spironolactone on hold due to elevated creatine Fluid restriction to 1 L and 2g Na restriction Will give albumin 100g today Continue Rifampin/Midodrine/Lactulose Will need to start on jail cipro prophylaxis Gastro on board continue monitor 06/15 S/P thoracentesis done yesterday where 6.5 L ascites fluid removed Has been very drowsy NGT tube placed to to give meds Continue Rifampin/Midodrine/Lactulose Albumin given Elevated Ammonia level 92 HYPONATREMIA Possible due to vol overload for decompensated cirrhosis Na on admission 121 Na level 125 today Continue fluid 1L restriction. follow PRP Nephrology on board case discussed with Immigration Coordinator TRACY on CKD stage 3 Creatine on admission 3.17 Possible related to hepatorenal creatine 3.1 today Continue holding spironolactone If creatine worsening, will transfer Nephrology on board Continue monitor BMP HX OF ETOH ABUSE Reports abstinence since November Pt is counselled to Continue strict ETOH abstinence GERD Protonix BID ANEMIA OF CHRONIC DISEASE : Hbg on admission 8.3 No evidence of GI bleed Hbg 7.4 Type and cross Continue monitor cbc, transfuse prbc if Hb < 7 Pleural Effusion CXR showed increase in size in the small to moderate left pleural effusion. No evidence for pulmonary edema. Last thoracentesis on 05/15 where 1.1 L fluid removed Will reassess after the paracentesis stable DVT PROPHYLAXIS Will hold heparin subq for now due to low hgb SCDs CODE STATUS Full Code Consultants: Nephro gastro Current Inpatient Medications: Current Inpatient Medications Medications (Trade) Dose Ordered Sig/Betty Route Start Time Stop Time Status Last Admin Dose Admin Heparin Sodium (Porcine) (Heparin Sq 5000 Unit/0.5ml) 5,000 unit Q8 SQ 06/13/17 22:00 07/13/17 21:59 Future hold 06/14/17 21:51 5,000 UNIT Ondansetron HCl (Zofran Inj) 4 mg Q6H PRN IV 12/21/17 18:45 07/13/17 18:44 06/15/17 03:57 4 MG Cholecalciferol (Vitamin D Tab) 400 inter.unit BID PO 06/13/17 21:00 07/13/17 20:59 06/14/17 20:35 400 INTER.UNIT Folic Acid (Folvite Tab) 1 mg QAM PO 06/14/17 09:00 07/14/17 08:59 06/14/17 12:08 1 MG Multivitamins/ Minerals (Multivitamin W/ Minerals Tab) 1 tab DAILY PO 06/14/17 09:00 07/14/17 08:59 06/14/17 07:52 1 TAB Pantoprazole Sodium (Protonix Tab) 40 mg BID PO 06/13/17 21:00 07/13/17 20:59 06/14/17 20:35 40 MG Rifaximin (Xifaxan Tab) 550 mg BID PO 06/13/17 21:00 07/13/17 20:59 06/14/17 20:35 550 MG Thiamine HCl (Vitamin B-1 Tab) 100 mg Q24H PO 06/13/17 20:00 07/13/17 19:59 06/14/17 19:46 100 MG Levalbuterol (Xopenex 0.31MG/ 3ML Neb) 0.31 mg Q6R INH 06/13/17 21:00 07/13/17 20:59 06/15/17 07:01 0.31 MG Albumin Human (Albumin 25%) 25 gm TID IV 06/15/17 14:00 06/18/17 13:59 06/15/17 16:07 25 GM Midodrine (Proamatine Tab) 15 mg BID PO 06/15/17 21:00 07/13/17 20:59 Octreotide Acetate 500 mcg/ Sodium Chloride 105 ml @ 10 mls/hr [id number] IV 06/15/17 13:15 07/15/17 13:14 06/15/17 14:55 10 MLS/HR Lactulose (Chronulac Syrup) 15 gm QID PO 06/15/17 17:00 07/13/17 20:59 06/15/17 16:16 15 GM
--- NOTE | 2017-06-15 20:00 | NUR ---
PT RESTING IN BED COMFORTABLY. REPORTS ACHINESS IN RT SHOULDER, REFUSES TO WEAR SLING. RT ARM ON PILLOW WITH ICE, ECCHYMOSIS AND EDEMA NOTED TO ARM. PT ASSESSED, SEE EMR. NG INTACT, CLAMPED, POSITION CHECKED. PT REPOSITIONED IN BED. PT ALERT AND ORIENTED AT THIS TIME, OCCASIONALLY CONFUSED, PULLS AT LINES. 1:1 NURSING SUPERVISION AT BEDSIDE. CALL RETANA WITHIN REACH, MONITORING.
[2017-06-15] MEDS: LANSOPRAZOLE SOLUTAB 15 MG GT SCH (20:52)
[2017-06-15] MEDS: THIAMINE HCL 100 MG TAB PO SCH (20:53)
--- NOTE | 2017-06-16 | NUR ---
PT RESTING IN BED COMFORTABLY. NO ACUTE CHANGES. 1:1 NURSING AT BESIDE. PT ORIENTED AT THIS TIME. SEE EMR FOR ASSESSMENT. NG INTACT. CALL RETANA WITHIN REACH, MONITORING.
[2017-06-16] MEDS: LEVALBUTEROL 0.31MG/3 ML VIAL INH SCH ×2 (02:02→07:00)
--- NOTE | 2017-06-16 03:30 | NUR ---
PT COMPLAINING OF 7 RT ARM PAIN, PT REPOSITIONED, ICE RE-APPLIED. DR. CERVANTES UPDATED ON PTS RT ARM PAIN AT THIS TIME, PAIN MEDICATION ORDERS TO BE PUT IN BY DR. CERVANTES.
--- NOTE | 2017-06-16 04:00 | NUR ---
PT RESTING IN BED COMFORTABLY, NO ACUTE CHANGES, SEE EMR FOR ASSESSMENT. VS OBTAINED. PT REPOSITIONED IN BED. 1:1 SITTER AT BEDSIDE, PT ACTING APPROPRIATELY. NG INTACT, CLAMPED. CALL RETANA WITHIN REACH, MONITORING.
[2017-06-16] MEDS: OXYCODONE HCL SOLN 5 MG/5 ML UDC GT PRN ×2 (04:01→09:56)
[2017-06-16 04:46] VITALS: BP 104/55; PULSE 83; TEMP 36.9; O2SAT 92
[2017-06-16 06:47] LABS: HEMATOCRIT 21.8 % (37-47); HEMOGLOBIN 7.4 g/dL (12.0-16.0); MEAN CELL VOLUME 102.8 fL (80-100); MEAN CORPUSCULAR HEMOGLOBIN 34.9 pg (25-34); MEAN CORPUSCULAR HGB CONC 33.9 g/dl (32-36); MEAN PLATELET VOLUME 9.4 fL (7.4-10.4); PLATELET COUNT 178 K/uL (130-400); RED CELL DISTRIBUTION WIDTH CV 20.3 % (11.5-14.5); RED CELL DISTRIBUTION WIDTH SD 76.8 fL (36.4-46.3)
[2017-06-16 07:11] VITALS: BP 104/52; PULSE 80; PULSE 93; TEMP 36.7; O2SAT 78; O2SAT 91
[2017-06-16 07:19] LABS: CALCIUM 8.8 mg/dl (8.5-10.1); CREATININE 2.17 mg/dl (0.60-1.20); POTASSIUM 3.7 mmol/L (3.5-5.1)
--- NOTE | 2017-06-16 08:00 | NUR ---
Patient assessed see EMR for more details. vss. call clark in reach safety reviewed needs addressed. IV patent and intact. 1:1 at bedside patient NGT intact @55cm. NGT placed by GI due to esophageal varices. Patient requested pain medication, she is not due for any at this time patient aware and offered repositioning.
[2017-06-16] MEDS: LACTULOSE SYRUP 10 GM/15 ML BTL 473 ML PO SCH ×4 (09:53→21:15)
[2017-06-16] MEDS: LANSOPRAZOLE SOLUTAB 15 MG GT SCH ×2 (09:53→21:14)
[2017-06-16] MEDS: CEROVITE ADV FORMULA TAB PO SCH (09:55)
[2017-06-16] MEDS: ALBUMIN HUMAN 25% 12.5 GM/50 ML VIAL IV SCH ×3 (09:55→21:23)
[2017-06-16] MEDS: CHOLECALCIFEROL 400 INTER.UNIT TAB PO SCH ×2 (09:55→21:15)
[2017-06-16] MEDS: RIFAXIMIN TAB 550 MG TAB PO SCH ×2 (09:56→21:14)
[2017-06-16] MEDS: MIDODRINE 10 MG TAB PO SCH ×2 (09:56→21:15)
[2017-06-16] MEDS: OCTREOTIDE ACETATE INJ 500 MCG in NSS 100ML IV SCH ×2 (10:27→21:10)
[2017-06-16 11:50] VITALS: BP 112/61; PULSE 79; TEMP 36.7; O2SAT 91
--- NOTE | 2017-06-16 12:00 | NUR ---
Patient assessed around this time. Dr. Funk at bedside to d/c NGT. other douglas assessment unchanged. see EMR for more details. vss. no c/o pain nausea sob.
--- NOTE | 2017-06-16 12:22 | Progress Note ---
Progress Note Date of Service Jun 16, 2017. Progress Note Events noted. Yesterday, albumin, midodrine, and lactulose increased. Narcotics and benzos held, but narcs resumed due to pain from fx. No complaints. BM x 2. Last 24 Hours Test 06/15/17 15:09 06/16/17 06:12 Hemoglobin 7.4 g/dL 7.4 g/dL Hematocrit 21.1 % 21.8 % White Blood Count 4.60 K/uL Red Blood Count 2.12 M/uL Mean Corpuscular Volume 102.8 fL Mean Corpuscular Hemoglobin 34.9 pg Mean Corpuscular Hemoglobin Concent 33.9 g/dl RDW Standard Deviation 76.8 fL RDW Coefficient of Variation 20.3 % Platelet Count 178 K/uL Mean Platelet Volume 9.4 fL Sodium Level 128 mmol/L Potassium Level 3.7 mmol/L Chloride Level 92 mmol/L Carbon Dioxide Level 29 mmol/L Anion Gap 8.0 mmol/L Blood Urea Nitrogen 37 mg/dl Creatinine 2.17 mg/dl Est Creatinine Clear Calc Drug Dose 30.2 ml/min Estimated GFR () 29.0 Estimated GFR (Non- 25.0 BUN/Creatinine Ratio 17.1 Random Glucose 78 mg/dl Calcium Level 8.8 mg/dl Date Time Temp Pulse Resp B/P (MAP) Pulse Ox O2 Delivery O2 Flow Rate FiO2 06/16/17 11:50 36.7 79 16 112/61 (78) 91 Room Air 06/16/17 08:00 Room Air 06/16/17 07:11 93 16 78 Room Air 06/16/17 07:11 36.7 80 16 104/52 (69) 91 Room Air 06/16/17 04:46 36.9 83 18 104/55 (71) 92 Room Air 06/16/17 04:00 Room Air 06/15/17 23:59 Room Air 06/15/17 23:35 36.9 86 16 103/55 (71) 93 Room Air 06/15/17 21:48 Room Air 06/15/17 19:21 36.7 93 18 104/49 (67) 92 Room Air 06/15/17 19:17 95 16 93 Room Air 06/15/17 15:19 Room Air 06/15/17 15:18 36.4 93 18 104/61 (75) 95 Lucid, awake, conversant Jaundice, multiple ecchymoses. Abd soft, mild distended, tympanic, no flank edema Extrem: no edema, no asterixis A/P: Cirrhotic HRS 1 on 2, improving on midodrine/octreotide/albumin - cont current meds until creat resolves to baseline (mid 1's). Hyponatremia, improved - cont current vol restriction HE - Minimize narcs and sedatives realizing that she made need narcs for her arm fx, cont xifaxan and lactulose Vol overload, pleural effusion - d/w nephro, begin lasix 20 IV BID/TID with albumin, follow creat
--- NOTE | 2017-06-16 13:22 | Progress Note ---
Medicine Progress Note Date & Time of Visit: Jun 16, 2017 at 12:51. Subjective Pt was seen and examined Lying in bed with no distress Pt feels much better today Yesterday she was very drowsy and lethargy She is more awake today she said that she wants the NGT out she said that she is having some pain in her right arm Denies any chest pain, palpitation, dizziness and fever Objective Last 8 Hrs Date Time Temp Pulse Resp B/P (MAP) Pulse Ox O2 Delivery O2 Flow Rate FiO2 06/16/17 11:50 36.7 79 16 112/61 (78) 91 Room Air 06/16/17 08:00 Room Air 06/16/17 07:11 93 16 78 Room Air 06/16/17 07:11 36.7 80 16 104/52 (69) 91 Room Air Physical Exam: General- No acute distress Head- atraumatic Eyes- PERRL, EOMI ENT- oropharynx clear Neck- supple, no JVD Lungs- decrease breath sound Heart- regular rhythm Abdomen- normal bowel sounds, soft Extremities-no calf tenderness, +edema Neuro- alert, oriented x 3; PERRL, EOMI Skin- warm & dry Laboratory Results: Last 24 Hours Test 06/15/17 15:09 06/16/17 06:12 Hemoglobin 7.4 g/dL 7.4 g/dL Hematocrit 21.1 % 21.8 % White Blood Count 4.60 K/uL Red Blood Count 2.12 M/uL Mean Corpuscular Volume 102.8 fL Mean Corpuscular Hemoglobin 34.9 pg Mean Corpuscular Hemoglobin Concent 33.9 g/dl RDW Standard Deviation 76.8 fL RDW Coefficient of Variation 20.3 % Platelet Count 178 K/uL Mean Platelet Volume 9.4 fL Sodium Level 128 mmol/L Potassium Level 3.7 mmol/L Chloride Level 92 mmol/L Carbon Dioxide Level 29 mmol/L Anion Gap 8.0 mmol/L Blood Urea Nitrogen 37 mg/dl Creatinine 2.17 mg/dl Est Creatinine Clear Calc Drug Dose 30.2 ml/min Estimated GFR () 29.0 Estimated GFR (Non- 25.0 BUN/Creatinine Ratio 17.1 Random Glucose 78 mg/dl Calcium Level 8.8 mg/dl Assessment & Plan HEPATIC CIRRHOSIS/ALCOHOLIC LIVER DISEASE : H/o portal HTN with bleeding varices s/p banding. Presented with abdominal distention Last paracentesis on 05/27 where 7L ascites fluid removed Has been getting paracentesis every 2 weeks or so with 5-7L ascites removal. Not a TIPS candidate due to high MELD 30 Schedule to get u/s guided paracentesis this morning Spironolactone on hold due to elevated creatine Fluid restriction to 1 L and 2g Na restriction Will give albumin 100g today Continue Rifampin/Midodrine/Lactulose Will need to start on plater production cipro prophylaxis Gastro on board continue monitor 06/15 S/P thoracentesis done on 06/14 where 6.5 L ascites fluid removed NGT removed since pt is more awake and ok to tolerated PO intake Continue Rifampin/Midodrine/Lactulose Albumin given Elevated Ammonia level 92 Starting on cipro for BPH prophylaxix Plan to resume diuretic HYPONATREMIA Possible due to vol overload for decompensated cirrhosis Na on admission 121 Na level 128 today Continue fluid 1L restriction. follow PRP Nephrology on board TRACY on CKD stage 3 Creatine on admission 3.17 Possible related to hepatorenal Creatine improved to 2.17 today Spironolactone on hold Nephrology on board Continue monitor BMP HX OF ETOH ABUSE Reports abstinence since November Pt is counselled to Continue strict ETOH abstinence GERD Protonix BID ANEMIA OF CHRONIC DISEASE : Hbg on admission 8.3 No evidence of GI bleed Hbg 7.4 Type and cross done Continue monitor cbc, transfuse prbc if Hb < 7 Right Shoulder Fracture Continue wearing sling Continue pain control Hold narcotic for lethargy and drowsiness Pleural Effusion CXR showed increase in size in the small to moderate left pleural effusion. No evidence for pulmonary edema. Last thoracentesis on 05/15 where 1.1 L fluid removed Saturated well on RA stable DVT PROPHYLAXIS Will hold heparin subq for now due to low hgb SCDs CODE STATUS Full Code Disposition Continue monitor in tele Consultants: Nephro gastro Current Inpatient Medications: Current Inpatient Medications Medications (Trade) Dose Ordered Sig/Betty Route Start Time Stop Time Status Last Admin Dose Admin Heparin Sodium (Porcine) (Heparin Sq 5000 Unit/0.5ml) 5,000 unit Q8 SQ 06/13/17 22:00 07/13/17 21:59 Future Hold 06/14/17 21:51 5,000 UNIT Ondansetron HCl (Zofran Inj) 4 mg Q6H PRN IV 06/13/17 18:45 07/13/17 18:44 06/15/17 03:57 4 MG Cholecalciferol (Vitamin D Tab) 400 inter.unit BID PO 06/13/17 21:00 07/13/17 20:59 06/16/17 09:55 400 INTER.UNIT Folic Acid (Folvite Tab) 1 mg QAM PO 06/14/17 09:00 07/14/17 08:59 06/16/17 09:00 1 MG Multivitamins/ Minerals (Multivitamin W/ Minerals Tab) 1 tab DAILY PO 06/14/17 09:00 07/14/17 08:59 06/16/17 09:55 1 TAB Rifaximin (Xifaxan Tab) 550 mg BID PO 06/13/17 21:00 07/13/17 20:59 06/16/17 09:56 550 MG Thiamine HCl (Vitamin B-1 Tab) 100 mg Q24H PO 06/13/17 20:00 07/13/17 19:59 06/15/17 20:53 100 MG Levalbuterol (Xopenex 0.31MG/ 3ML Neb) 0.31 mg Q6R INH 06/13/17 21:00 07/13/17 20:59 06/16/17 07:00 0.31 MG Albumin Human (Albumin 25%) 25 gm TID IV 06/15/17 14:00 06/18/17 13:59 06/16/17 09:55 25 GM Midodrine (Proamatine Tab) 15 mg BID PO 06/15/17 21:00 07/13/17 20:59 06/16/17 09:56 15 MG Octreotide Acetate 500 mcg/ Sodium Chloride 105 ml @ 10 mls/hr [id number] IV 06/15/17 13:15 07/15/17 13:14 06/16/17 10:27 10 MLS/HR Lactulose (Chronulac Syrup) 15 gm QID PO 06/15/17 17:00 07/13/17 20:59 06/16/17 09:53 15 GM Lansoprazole (Prevacid Solutab) 15 mg BID GT 06/15/17 21:00 07/15/17 20:59 06/16/17 09:53 15 MG Oxycodone HCl (Roxicodone Soln) 5 mg Q6H PRN GT 06/16/17 03:45 06/30/17 03:44 06/16/17 09:56 5 MG Ciprofloxacin (Cipro Tab) 500 mg DAILY PO 06/17/17 09:00 06/27/17 08:59 Furosemide 20 mg/ Syringe 2 ml @ 4 mls/min BID IV 06/16/17 21:00 07/16/17 20:59 UNV
[2017-06-16] MEDS ORDERED: LEVALBUTEROL 0.31MG/3 ML VIAL INH PRN (15:00)
[2017-06-16] MEDS ORDERED: LORAZEPAM 0.5 MG TAB PO PRN (15:30)
--- NOTE | 2017-06-16 15:41 | Nephrology Progress Note ---
Nephrology Progress Note Date of Service: Jun 16, 2017. Subjective still confused this am but much more alert, interactive; c/o severe R arm pain; no dyspnea, feels swelling improved Objective Date Time Temp Pulse Resp B/P (MAP) Pulse Ox O2 Delivery O2 Flow Rate FiO2 06/16/17 12:00 Room Air 06/16/17 11:50 36.7 79 16 112/61 (78) 91 Room Air 06/16/17 08:00 Room Air 06/16/17 07:11 93 16 78 Room Air 06/16/17 07:11 36.7 80 16 104/52 (69) 91 Room Air 06/16/17 04:46 36.9 83 18 104/55 (71) 92 Room Air 06/16/17 04:00 Room Air 06/15/17 23:59 Room Air 06/15/17 23:35 36.9 86 16 103/55 (71) 93 Room Air 06/15/17 21:48 Room Air 06/15/17 19:21 36.7 93 18 104/49 (67) 92 Room Air 06/15/17 19:17 95 16 93 Room Air Physical Exam: GENERAL: sitting up in bed on ra, alert, mostly appropriate, confused when awake EYES: +scleral icterus. NECK: Supple. PULMONARY: Decreased breath sounds at the bases. CARDIAC: Regular rate and rhythm. ABDOMEN: Distended, + fluid wave. Bowel sounds positive. EXTREMITIES: +2 pitting edema/ anasarca; R arm no longer in sling NEUROLOGICALLY: brenner, fluent speech; today less confused DERMATOLOGIC: No rash or ulcers noted. multiple ecchymoses Current Inpatient Medications Medications (Trade) Dose Ordered Sig/Betty Route Start Time Stop Time Status Last Admin Dose Admin Heparin Sodium (Porcine) (Heparin Sq 5000 Unit/0.5ml) 5,000 unit Q8 SQ 06/13/17 22:00 07/13/17 21:59 Future Hold 06/14/17 21:51 5,000 UNIT Ondansetron HCl (Zofran Inj) 4 mg Q6H PRN IV 06/13/17 18:45 07/13/17 18:44 06/15/17 03:57 4 MG Cholecalciferol (Vitamin D Tab) 400 inter.unit BID PO 06/13/17 21:00 07/13/17 20:59 06/16/17 09:55 400 INTER.UNIT Folic Acid (Folvite Tab) 1 mg QAM PO 06/14/17 09:00 07/14/17 08:59 06/16/17 09:00 1 MG Multivitamins/ Minerals (Multivitamin W/ Minerals Tab) 1 tab DAILY PO 06/14/17 09:00 07/14/17 08:59 06/16/17 09:55 1 TAB Rifaximin (Xifaxan Tab) 550 mg BID PO 06/13/17 21:00 07/13/17 20:59 06/16/17 09:56 550 MG Thiamine HCl (Vitamin B-1 Tab) 100 mg Q24H PO 06/13/17 20:00 07/13/17 19:59 06/15/17 20:53 100 MG Albumin Human (Albumin 25%) 25 gm TID IV 06/15/17 14:00 06/18/17 13:59 06/16/17 13:34 25 GM Midodrine (Proamatine Tab) 15 mg BID PO 06/15/17 21:00 07/13/17 20:59 06/16/17 09:56 15 MG Octreotide Acetate 500 mcg/ Sodium Chloride 105 ml @ 10 mls/hr [id number] IV 06/15/17 13:15 07/15/17 13:14 06/16/17 10:27 10 MLS/HR Lactulose (Chronulac Syrup) 15 gm QID PO 06/15/17 17:00 07/13/17 20:59 06/16/17 13:34 15 GM Lansoprazole (Prevacid Solutab) 15 mg BID GT 06/15/17 21:00 07/15/17 20:59 06/16/17 09:53 15 MG Ciprofloxacin (Cipro Tab) 500 mg DAILY PO 06/17/17 09:00 06/27/17 08:59 Furosemide 20 mg/ Syringe 2 ml @ 4 mls/min BID IV 06/16/17 21:00 06/18/17 09:01 Levalbuterol (Xopenex 0.31MG/ 3ML Neb) 0.31 mg Q6R PRN INH 06/16/17 15:00 07/13/17 20:59 Oxycodone HCl (Roxicodone Immediate Rel Tab) 5 mg Q6HWA PRN PO 06/16/17 14:30 06/30/17 14:29 Lorazepam (Ativan Tab) 0.25 mg ONE PRN PO 06/16/17 15:30 07/16/17 15:29 Last 24 Hours Test 06/16/17 06:12 White Blood Count 4.60 K/uL Red Blood Count 2.12 M/uL Hemoglobin 7.4 g/dL Hematocrit 21.8 % Mean Corpuscular Volume 102.8 fL Mean Corpuscular Hemoglobin 34.9 pg Mean Corpuscular Hemoglobin Concent 33.9 g/dl RDW Standard Deviation 76.8 fL RDW Coefficient of Variation 20.3 % Platelet Count 178 K/uL Mean Platelet Volume 9.4 fL Sodium Level 128 mmol/L Potassium Level 3.7 mmol/L Chloride Level 92 mmol/L Carbon Dioxide Level 29 mmol/L Anion Gap 8.0 mmol/L Blood Urea Nitrogen 37 mg/dl Creatinine 2.17 mg/dl Est Creatinine Clear Calc Drug Dose 30.2 ml/min Estimated GFR () 29.0 Estimated GFR (Non- 25.0 BUN/Creatinine Ratio 17.1 Random Glucose 78 mg/dl Calcium Level 8.8 mg/dl Assessment & Plan 52 y/o F w/ alcoholic liver cirrhosis admitted w/ worsening volume overload, tracy , hyponatremia w/ presenting Na 121. had 7L paracentesis 06/14. ongoing fluid overload 1. Hypervolemic hyponatremia. sNa improving -cont 1 liter fluid restriction -cont albumin IV > d/w GI and agree w/ adding 20 mg iv lasix timed so as not to disrupt sleep -cont to hold spironolactone -f/u other GI recs -cont strict I/O 2. TRACY on CKD HRS 1 versus prerenal versus atn >> favor prerenal given her response to care; overall though over past weeks/months worsening CKD -ordered uacm -cont dual therapy for HRS (agree w/ gi rec for octreotide gtt); -cont midodrine 10 mg p.o. b.i.d. >her baseline creatinine through february 2017 was 0.8-0.9; then in march/ april more in mid 1's; currently running low 3s, which is severe renal failure in this small framed liver pt >per GI consider transfer if worsening renal function for TIPS and/or txplt eval Appreciate consult; will follow with you; care coordinated w/ Dr Funk
[2017-06-16 15:52] VITALS: BP 104/65; PULSE 83; TEMP 36.9; O2SAT 95
[2017-06-16] MEDS ORDERED: FUROSEMIDE INJ 20 MG in SYRINGE 0 ML IV ONE (16:00)
--- NOTE | 2017-06-16 16:00 | NUR ---
A- NO CHANGE IN PHYSICAL ASSESSMENT SINCE 1200.
[2017-06-16] MEDS: OXYCODONE HCL IR 5 MG TAB (IMMEDIATE RELEASE) PO PRN ×2 (16:08→21:58)
[2017-06-16] MEDS: THIAMINE HCL 100 MG TAB PO SCH (19:38)
--- NOTE | 2017-06-16 19:40 | NUR ---
A: Full assessment complete. See EMR. Pt is A&O x 4. SR 70s-80s with PACs on the monitor. RA. Sandostatin infusing at 10 ml/hr through left forearm site. Additional left forearm site present and locked. SCDs off at this time per pt request. C/O right arm pain, previously medicated. See EMAR. No needs verbalized or apparent at this time. Will continue to monitor. Call clark in reach.
[2017-06-16 20:10] VITALS: BP 109/57; PULSE 86; TEMP 36.9; O2SAT 95
[2017-06-16] MEDS ORDERED: FUROSEMIDE INJ 20 MG in SYRINGE 0 ML IV SCH (21:00)
[2017-06-16 23:40] VITALS: BP 110/60; PULSE 76; TEMP 37; O2SAT 90
[2017-06-16] MEDS: ONDANSETRON INJ 2 MG/ML 2 ML VIAL IV PRN (23:44)
--- NOTE | 2017-06-16 23:45 | NUR ---
A: Assessment complete. See EMR. VSS. SR 70s on the monitor. RA. Sandostatin continues to infuse per MD order. Pt nauseous, PRN Zofran administered. See EMAR. No needs verbalized or apparent at this time. Will continue to monitor. Bed alarm on for pt safety. Call clark in reach.
[2017-06-17] VITALS (8 sets, daily range): BP systolic 102–115; BP diastolic 57–67; PULSE 72–79; TEMP 36.7–37.1; O2SAT 92–95
--- NOTE | 2017-06-17 04:00 | NUR ---
A: Assessment complete. See EMR. VSS. SR 70s on the monitor. RAJacek Sandostatin continues to infuse per MD order. Assisted to toilet. Comfort bath, gown change, and linen change performed. No other needs verbalized or apparent at this time. Will continue to monitor. Call clark in reach.
[2017-06-17] MEDS: OXYCODONE HCL IR 5 MG TAB (IMMEDIATE RELEASE) PO PRN ×4 (04:31→22:58)
[2017-06-17 06:59] LABS: CALCIUM 8.6 mg/dl (8.5-10.1); CREATININE 1.6 mg/dl (0.60-1.20); POTASSIUM 3.4 mmol/L (3.5-5.1)
[2017-06-17] MEDS: LORAZEPAM 0.5 MG TAB PO PRN ×2 (07:37→21:07)
[2017-06-17] MEDS: OCTREOTIDE ACETATE INJ 500 MCG in NSS 100ML IV SCH ×2 (07:38→18:02)
[2017-06-17] MEDS: RIFAXIMIN TAB 550 MG TAB PO SCH ×2 (07:39→21:04)
[2017-06-17] MEDS: FUROSEMIDE INJ 20 MG in SYRINGE 0 ML IV SCH ×2 (07:39→14:00)
[2017-06-17] MEDS: CEROVITE ADV FORMULA TAB PO SCH (07:40)
[2017-06-17] MEDS: CHOLECALCIFEROL 400 INTER.UNIT TAB PO SCH ×2 (07:40→21:01)
[2017-06-17] MEDS: ALBUMIN HUMAN 25% 12.5 GM/50 ML VIAL IV SCH ×3 (07:41→21:06)
[2017-06-17] MEDS: MIDODRINE 10 MG TAB PO SCH ×2 (07:41→21:03)
[2017-06-17] MEDS: LACTULOSE SYRUP 10 GM/15 ML BTL 473 ML PO SCH ×4 (07:42→21:04)
[2017-06-17] MEDS: CIPROFLOXACIN 500 MG TAB PO SCH (07:42)
[2017-06-17] MEDS: LANSOPRAZOLE SOLUTAB 15 MG GT SCH ×2 (07:42→21:02)
[2017-06-17] MEDS ORDERED: POTASSIUM CHLORIDE 10 MEQ TABCR PO ONE (07:45)
--- NOTE | 2017-06-17 08:00 | NUR ---
A: Assessment completed. Refer to EMR for assessment details. NSR w/ pac's on tele. Patient denies any chest pain or shortness of breath at this time. C/O R arm pain rated 6/10. Denies any other needs or complaints at this time. Agrees to ring for assistance. Call clark within reach. Will continue to monitor.
[2017-06-17] MEDS ORDERED: POTASSIUM CHLORIDE 20 MEQ TABCR PO ONE (09:00)
[2017-06-17 09:55] LABS: HEMATOCRIT 20.7 % (37-47); MEAN CELL VOLUME 104.5 fL (80-100); MEAN CORPUSCULAR HEMOGLOBIN 35.4 pg (25-34); MEAN CORPUSCULAR HGB CONC 33.8 g/dl (32-36); MEAN PLATELET VOLUME 9.7 fL (7.4-10.4); PLATELET COUNT 191 K/uL (130-400); RED CELL DISTRIBUTION WIDTH SD 75.4 fL (36.4-46.3); WHITE BLOOD COUNT 4.18 K/uL (4.8-10.8)
--- NOTE | 2017-06-17 12:00 | NUR ---
Reassessment completed. Refer to EMR for assessment details. NSR w/ pac's on tele. Patient denies any chest pain or shortness of breath at this time. Continues to c/o R arm pain. Denies any other needs or complaints at this time. Agrees to ring for assistance. Call clark within reach. Will continue to monitor.
--- NOTE | 2017-06-17 14:40 | Progress Note ---
Progress Note Date of Service Jun 17, 2017. Progress Note Feels well. Reports nausea, no BM. O/w no complaints. Current Inpatient Medications Medications (Trade) Dose Ordered Sig/Betty Route Start Time Stop Time Status Last Admin Dose Admin Heparin Sodium (Porcine) (Heparin Sq 5000 Unit/0.5ml) 5,000 unit Q8 SQ 06/13/17 22:00 07/13/17 21:59 Future Hold 06/14/17 21:51 5,000 UNIT Ondansetron HCl (Zofran Inj) 4 mg Q6H PRN IV 06/13/17 18:45 07/13/17 18:44 06/16/17 23:44 4 MG Cholecalciferol (Vitamin D Tab) 400 inter.unit BID PO 06/13/17 21:00 07/13/17 20:59 06/17/17 07:40 400 INTER.UNIT Folic Acid (Folvite Tab) 1 mg QAM PO 06/14/17 09:00 07/14/17 08:59 06/17/17 07:39 1 MG Multivitamins/ Minerals (Multivitamin W/ Minerals Tab) 1 tab DAILY PO 06/14/17 09:00 07/14/17 08:59 06/17/17 07:40 1 TAB Rifaximin (Xifaxan Tab) 550 mg BID PO 06/13/17 21:00 07/13/17 20:59 06/17/17 07:39 550 MG Thiamine HCl (Vitamin B-1 Tab) 100 mg Q24H PO 06/13/17 20:00 07/13/17 19:59 06/16/17 19:38 100 MG Albumin Human (Albumin 25%) 25 gm TID IV 06/15/17 14:00 06/18/17 13:59 06/17/17 07:41 25 GM Midodrine (Proamatine Tab) 15 mg BID PO 06/15/17 21:00 07/13/17 20:59 06/17/17 07:41 15 MG Octreotide Acetate 500 mcg/ Sodium Chloride 105 ml @ 10 mls/hr [id number] IV 06/15/17 13:15 07/15/17 13:14 06/17/17 07:38 10 MLS/HR Lactulose (Chronulac Syrup) 15 gm QID PO 06/15/17 17:00 07/13/17 20:59 06/17/17 13:21 15 GM Lansoprazole (Prevacid Solutab) 15 mg BID GT 06/15/17 21:00 07/15/17 20:59 06/17/17 07:42 15 MG Ciprofloxacin (Cipro Tab) 500 mg DAILY PO 06/17/17 09:00 06/27/17 08:59 06/17/17 07:42 500 MG Levalbuterol (Xopenex 0.31MG/ 3ML Neb) 0.31 mg Q6R PRN INH 06/16/17 15:00 07/13/17 20:59 Oxycodone HCl (Roxicodone Immediate Rel Tab) 5 mg Q6HWA PRN PO 06/16/17 14:30 06/30/17 14:29 06/17/17 11:05 5 MG Furosemide 20 mg/ Syringe 2 ml @ 4 mls/min BID@0900,1400 IV 06/17/17 09:00 06/18/17 13:59 06/17/17 07:39 4 MLS/MIN Lorazepam (Ativan Tab) 0.25 mg Q12H PRN PO 06/16/17 22:15 07/16/17 15:29 06/17/17 07:37 0.25 MG Date Time Temp Pulse Resp B/P (MAP) Pulse Ox O2 Delivery O2 Flow Rate FiO2 06/17/17 12:00 Room Air 06/17/17 11:04 36.9 72 18 115/65 (82) 94 Room Air 06/17/17 08:00 Room Air 06/17/17 07:30 37.1 79 20 109/60 (76) 95 Room Air 06/17/17 07:29 37.1 79 20 109/60 (76) 95 Room Air 06/17/17 04:17 37.0 78 20 102/57 (72) 92 Room Air 06/17/17 04:00 Room Air 06/17/17 00:01 Room Air 06/16/17 23:40 37.0 76 17 110/60 (77) 90 06/16/17 20:10 36.9 86 20 109/57 (74) 95 Room Air 06/16/17 20:00 Room Air 06/16/17 16:00 Room Air 12/24/17 15:52 36.9 83 20 104/65 (78) 95 Nasal Cannula Comfortable, lucid. Abd: tympanic, distended but soft, no flank dullness or flank edema Extrem: no edema Last 24 Hours Test 06/16/17 21:20 06/17/17 05:23 Urine Color YELLOW Urine Appearance CLEAR Urine pH 7.0 Urine Specific [place] 1.010 Urine Protein NEG Urine Glucose (UA) NEG Urine Ketones NEG Urine Occult Blood NEG Urine Nitrite NEG Urine Bilirubin NEG Urine Urobilinogen NEG Urine Leukocyte Esterase TRACE Urine WBC (Auto) 1-5 /hpf Urine RBC (Auto) 0-4 /hpf Urine Hyaline Casts (Auto) 1-5 /lpf Urine Epithelial Cells (Auto) >30 /lpf Urine Bacteria (Auto) NEG White Blood Count 4.18 K/uL Red Blood Count 1.98 M/uL Hemoglobin 7.0 g/dL Hematocrit 20.7 % Mean Corpuscular Volume 104.5 fL Mean Corpuscular Hemoglobin 35.4 pg Mean Corpuscular Hemoglobin Concent 33.8 g/dl RDW Standard Deviation 75.4 fL RDW Coefficient of Variation 20.0 % Platelet Count 191 K/uL Mean Platelet Volume 9.7 fL Sodium Level 133 mmol/L Potassium Level 3.4 mmol/L Chloride Level 95 mmol/L Carbon Dioxide Level 30 mmol/L Anion Gap 8.0 mmol/L Blood Urea Nitrogen 28 mg/dl Creatinine 1.60 mg/dl Est Creatinine Clear Calc Drug Dose 40.9 ml/min Estimated GFR () 41.9 Estimated GFR (Non- 36.2 BUN/Creatinine Ratio 17.6 Random Glucose 107 mg/dl Calcium Level 8.6 mg/dl A/P: Cirrhotic HRS 1 on 2, improving on midodrine/octreotide/albumin - Creat close to baseline , cont current meds for 1 more day. Hyponatremia, improved - cont current vol restriction HE - Minimize narcs and sedatives realizing that she made need narcs for her arm fx, cont xifaxan and lactulose. Will give dulcolax as well; she likely has narc induced constipation. Vol overload, pleural effusion - Cont lasix 201 IV BID with albumin today, follow creat. Consider LVP tomorrow. Anticiapte d/c home in 1-2 more days on midodrine 15 TID, lactulose QID. Would plan to resume prior outpt doses of diuretics on d/c.
[2017-06-17] MEDS ORDERED: BISACODYL 5 MG TABEC PO ONE (14:45)
--- NOTE | 2017-06-17 16:00 | NUR ---
Patient reassessment completed. Refer to EMR for assessment details. NSR w/ Pac's on tele. Patient denies any chest pain or shortness of breath at this time. C/o R arm pain rated 6/10 and medicated with po oxycodone. Denies any other needs or complaints at this time. Agrees to ring for assistance. Call clark within reach. Will continue to monitor.
--- NOTE | 2017-06-17 17:14 | Progress Note ---
Medicine Progress Note Date & Time of Visit: Jun 17, 2017 at 17:08. Subjective Pt was seen and examined Lying in bed with no distress Pt said that she feels much better Denies any chest pain, palpitation, dizziness and SOB Objective Last 8 Hrs Date Time Temp Pulse Resp B/P (MAP) Pulse Ox O2 Delivery O2 Flow Rate FiO2 06/17/17 16:00 Room Air 06/17/17 15:40 36.7 73 20 108/58 (75) 94 Room Air 06/17/17 12:00 Room Air 06/17/17 11:04 36.9 72 18 115/65 (82) 94 Room Air Physical Exam: General- No acute distress Head- atraumatic Eyes- PERRL, EOMI ENT- oropharynx clear Neck- supple, no JVD Lungs- decrease breath sound Heart- regular rhythm Abdomen- normal bowel sounds, soft Extremities-no calf tenderness, +edema Neuro- alert, oriented x 3; PERRL, EOMI Skin- warm & dry Laboratory Results: Last 24 Hours Test 06/16/17 21:20 06/17/17 05:23 Urine Color YELLOW Urine Appearance CLEAR Urine pH 7.0 Urine Specific [place] 1.010 Urine Protein NEG Urine Glucose (UA) NEG Urine Ketones NEG Urine Occult Blood NEG Urine Nitrite NEG Urine Bilirubin NEG Urine Urobilinogen NEG Urine Leukocyte Esterase TRACE Urine WBC (Auto) 1-5 /hpf Urine RBC (Auto) 0-4 /hpf Urine Hyaline Casts (Auto) 1-5 /lpf Urine Epithelial Cells (Auto) >30 /lpf Urine Bacteria (Auto) NEG White Blood Count 4.18 K/uL Red Blood Count 1.98 M/uL Hemoglobin 7.0 g/dL Hematocrit 20.7 % Mean Corpuscular Volume 104.5 fL Mean Corpuscular Hemoglobin 35.4 pg Mean Corpuscular Hemoglobin Concent 33.8 g/dl RDW Standard Deviation 75.4 fL RDW Coefficient of Variation 20.0 % Platelet Count 191 K/uL Mean Platelet Volume 9.7 fL Sodium Level 133 mmol/L Potassium Level 3.4 mmol/L Chloride Level 95 mmol/L Carbon Dioxide Level 30 mmol/L Anion Gap 8.0 mmol/L Blood Urea Nitrogen 28 mg/dl Creatinine 1.60 mg/dl Est Creatinine Clear Calc Drug Dose 40.9 ml/min Estimated GFR () 41.9 Estimated GFR (Non- 36.2 BUN/Creatinine Ratio 17.6 Random Glucose 107 mg/dl Calcium Level 8.6 mg/dl Assessment & Plan HEPATIC CIRRHOSIS/ALCOHOLIC LIVER DISEASE : H/o portal HTN with bleeding varices s/p banding. Presented with abdominal distention Last paracentesis on 05/27 where 7L ascites fluid removed Has been getting paracentesis every 2 weeks or so with 5-7L ascites removal. Not a TIPS candidate due to high MELD 30 Schedule to get u/s guided paracentesis this morning Spironolactone on hold due to elevated creatine Fluid restriction to 1 L and 2g Na restriction Will give albumin 100g today Continue Rifampin/Midodrine/Lactulose Will need to start on fpc cipro prophylaxis Gastro on board continue monitor 06/17 S/P thoracentesis done on 06/14 where 6.5 L ascites fluid removed NGT removed since pt is more awake and ok to tolerated PO intake Continue Rifampin/Midodrine Has not had a BM in the last few days Increase lactulose to 20ml Albumin given Elevated Ammonia level 92 Continue cipro for BPH prophylaxix Continue lasix 20mg BID Clinically improved HYPONATREMIA Possible due to vol overload for decompensated cirrhosis Na on admission 121 Na level 133 today Continue fluid 1L restriction. follow PRP Nephrology on board TRACY on CKD stage 3 Creatine on admission 3.17 Possible related to hepatorenal Creatine improved to 1.6 today Spironolactone on hold Nephrology on board Continue monitor BMP HX OF ETOH ABUSE Reports abstinence since November Pt is counselled to Continue strict ETOH abstinence GERD Protonix BID ANEMIA OF CHRONIC DISEASE : Hbg on admission 8.3 No evidence of GI bleed Hbg 7, check h/h later Type and cross done Continue monitor cbc, transfuse prbc if Hb < 7 Right Shoulder Fracture Continue wearing sling Continue pain control Hold narcotic for lethargy and drowsiness Pleural Effusion CXR showed increase in size in the small to moderate left pleural effusion. No evidence for pulmonary edema. Last thoracentesis on 05/15 where 1.1 L fluid removed Saturated well on RA stable DVT PROPHYLAXIS Continue holding heparin subq for now due to low hgb SCDs CODE STATUS Full Code Disposition Continue monitor in tele Consultants: Nephro gastro Current Inpatient Medications: Current Inpatient Medications Medications (Trade) Dose Ordered Sig/Betty Route Start Time Stop Time Status Last Admin Dose Admin Heparin Sodium (Porcine) (Heparin Sq 5000 Unit/0.5ml) 5,000 unit Q8 SQ 06/13/17 22:00 07/13/17 21:59 Future Hold 06/14/17 21:51 5,000 UNIT Ondansetron HCl (Zofran Inj) 4 mg Q6H PRN IV 06/13/17 18:45 07/13/17 18:44 06/16/17 23:44 4 MG Cholecalciferol (Vitamin D Tab) 400 inter.unit BID PO 06/13/17 21:00 07/13/17 20:59 06/17/17 07:40 400 INTER.UNIT Folic Acid (Folvite Tab) 1 mg QAM PO 06/14/17 09:00 07/14/17 08:59 06/17/17 07:39 1 MG Multivitamins/ Minerals (Multivitamin W/ Minerals Tab) 1 tab DAILY PO 06/14/17 09:00 07/14/17 08:59 06/17/17 07:40 1 TAB Rifaximin (Xifaxan Tab) 550 mg BID PO 06/13/17 21:00 07/13/17 20:59 06/17/17 07:39 550 MG Thiamine HCl (Vitamin B-1 Tab) 100 mg Q24H PO 06/13/17 20:00 07/13/17 19:59 06/16/17 19:38 100 MG Albumin Human (Albumin 25%) 25 gm TID IV 06/15/17 14:00 06/18/17 13:59 06/17/17 14:00 25 GM Midodrine (Proamatine Tab) 15 mg BID PO 06/15/17 21:00 07/13/17 20:59 06/17/17 07:41 15 MG Octreotide Acetate 500 mcg/ Sodium Chloride 105 ml @ 10 mls/hr [id number] IV 06/15/17 13:15 07/15/17 13:14 06/17/17 07:38 10 MLS/HR Lactulose (Chronulac Syrup) 15 gm QID PO 06/15/17 17:00 07/13/17 20:59 06/17/17 16:47 15 GM Lansoprazole (Prevacid Solutab) 15 mg BID GT 06/15/17 21:00 07/15/17 20:59 06/17/17 07:42 15 MG Ciprofloxacin (Cipro Tab) 500 mg DAILY PO 06/17/17 09:00 06/27/17 08:59 06/17/17 07:42 500 MG Levalbuterol (Xopenex 0.31MG/ 3ML Neb) 0.31 mg Q6R PRN INH 06/16/17 15:00 07/13/17 20:59 Oxycodone HCl (Roxicodone Immediate Rel Tab) 5 mg Q6HWA PRN PO 06/16/17 14:30 06/30/17 14:29 06/17/17 16:48 5 MG Furosemide 20 mg/ Syringe 2 ml @ 4 mls/min BID@0900,1400 IV 06/17/17 09:00 06/18/17 13:59 06/17/17 14:00 4 MLS/MIN Lorazepam (Ativan Tab) 0.25 mg Q12H PRN PO 06/16/17 22:15 07/16/17 15:29 06/17/17 07:37 0.25 MG
[2017-06-17 17:19] LABS: HEMATOCRIT 24.3 % (37-47)
--- NOTE | 2017-06-17 20:07 | NUR ---
A: Assessment completed- see EMR for full detail; VSS, - see EMR; AA&O, Appropriate;NSR with occasional PAC's, noted on monitor; Denies CP/SOB, On room Air; pt. denies pain at this time; skin with jaundiced coloration/ icterus; abdomen with 2x2 and Tegaderm from centesis on abdomen, abdomen distended, firm and nontender, pt. denies abdominal pain, NV. Pt. requesting pain medication at this time- reviewed pain medication schedule with pt, - pt agreeable will medicate at next available dose-see eMAR; Pt. left arm in sling due to unresolved Fx; Pt. currently resting in bed assisted pt. to reposition for comfort; no needs apparent or verbalized at this time; IV sites intact octreotide infusing per order -see eMAR; safety reviewed; call-clark & items of necessity in reach, Pt. rings call-clark appropriately for assistance; will continue to monitor & assess.
[2017-06-17] MEDS: THIAMINE HCL 100 MG TAB PO SCH (21:01)
--- NOTE | 2017-06-17 23:45 | NUR ---
A: Assessment completed and update- see EMR for full detail; VSS, - see EMR; AA&Ox4, Appropriate;NSR with occasional PAC's, noted on monitor; Denies CP/SOB, On room Air; Pt. medicated for pain as ordered with oxy IR - see eMAR; Pt. currently resting in bed;Assisted pt. to BR and pt returned to bed, no needs other apparent or verbalized at this time; reviewed fluid restriction with pt; IV sites flushed, leaking,removed and new iv access obtained -see eMAR; safety reviewed; call-clark & items of necessity in reach, Pt. rings call-clark appropriately for assistance;.
[2017-06-18] VITALS (10 sets, daily range): BP systolic 92–115; BP diastolic 49–63; PULSE 66–78; TEMP 36.7–37.4; O2SAT 92–98
--- NOTE | 2017-06-18 03:50 | NUR ---
A: Assessment completed and update- see EMR for full detail; VSS, - see EMR; AA&Ox4, Appropriate;NSR, noted on monitor; Denies CP/SOB, On room Air; safety reviewed; call-clark & items of necessity in reach, Pt. rings call-clark appropriately for assistance;
[2017-06-18] MEDS: OCTREOTIDE ACETATE INJ 500 MCG in NSS 100ML IV SCH ×2 (04:25→14:04)
[2017-06-18 06:13] LABS: MEAN CELL VOLUME 105.5 fL (80-100); MEAN CORPUSCULAR HEMOGLOBIN 35.2 pg (25-34); MEAN CORPUSCULAR HGB CONC 33.3 g/dl (32-36); MEAN PLATELET VOLUME 9.3 fL (7.4-10.4); PLATELET COUNT 168 K/uL (130-400); RED CELL DISTRIBUTION WIDTH CV 19.4 % (11.5-14.5); RED CELL DISTRIBUTION WIDTH SD 74.7 fL (36.4-46.3); WHITE BLOOD COUNT 4.21 K/uL (4.8-10.8)
[2017-06-18 06:36] LABS: INR 1.9 (0.9-1.1)
[2017-06-18 06:57] LABS: CALCIUM 8.7 mg/dl (8.5-10.1); CREATININE 1.24 mg/dl (0.60-1.20); POTASSIUM 3.8 mmol/L (3.5-5.1)
--- NOTE | 2017-06-18 08:00 | NUR ---
A: Resting quietly. Medicated for c/o right arm pain. NSR on the monitor. +1 BLE edema noted. Patient states this is a big improvement. Lung sounds are clear, diminished throughout on RA. Denies CP/SOB. +BS. BM this AM. Abdomen is distended and firm but non-tender. Voiding without difficulty. Ambulates with 1 assist. BUE are ecchymotic. Dressing intact to abdomen s/p paracentesis. Skin is jaundiced. RUE in sling. Neurovascular checks are WNL. Strict 1000 ml fluid restrictions. See EMR for complete assessment details. Call clark is within reach. Will continue to monitor.
[2017-06-18] MEDS: FUROSEMIDE INJ 20 MG in SYRINGE 0 ML IV SCH (09:14)
[2017-06-18] MEDS: ALBUMIN HUMAN 25% 12.5 GM/50 ML VIAL IV SCH (09:15)
[2017-06-18] MEDS: RIFAXIMIN TAB 550 MG TAB PO SCH ×2 (09:15→19:54)
[2017-06-18] MEDS: CHOLECALCIFEROL 400 INTER.UNIT TAB PO SCH ×2 (09:16→19:56)
[2017-06-18] MEDS: MIDODRINE 10 MG TAB PO SCH ×2 (09:16→19:55)
[2017-06-18] MEDS: CIPROFLOXACIN 500 MG TAB PO SCH (09:16)
[2017-06-18] MEDS: CEROVITE ADV FORMULA TAB PO SCH (09:16)
[2017-06-18] MEDS: LANSOPRAZOLE SOLUTAB 15 MG GT SCH ×2 (09:17→19:55)
[2017-06-18] MEDS: LACTULOSE SYRUP 10 GM/15 ML BTL 473 ML PO SCH ×4 (09:17→19:54)
[2017-06-18] MEDS: OXYCODONE HCL IR 5 MG TAB (IMMEDIATE RELEASE) PO PRN ×3 (09:27→23:01)
--- NOTE | 2017-06-18 09:47 | Nephrology Progress Note ---
Nephrology Progress Note Date of Service: Jun 18, 2017. Subjective less confusion, ate full breakfast; edema cont to improve; no n/v, not dyspneic ; arm pain for moment controlled Objective Date Time Temp Pulse Resp B/P (MAP) Pulse Ox O2 Delivery O2 Flow Rate FiO2 06/18/17 07:24 37.4 78 18 102/49 (66) 93 Room Air 06/18/17 04:00 93 Room Air 2.0 06/18/17 03:50 36.8 74 20 115/63 (80) 92 Room Air 06/18/17 00:01 93 Room Air 2.0 06/17/17 23:45 36.9 77 18 110/67 (81) 93 Room Air 06/17/17 20:07 36.8 79 20 108/62 (77) 93 Room Air 06/17/17 20:00 94 Room Air 2.0 06/17/17 16:00 Room Air 06/17/17 15:40 36.7 73 20 108/58 (75) 94 Room Air 06/17/17 12:00 Room Air 06/17/17 11:04 36.9 72 18 115/65 (82) 94 Room Air Physical Exam: GENERAL: sitting up on side of bed on ra, alert, mostly appropriate EYES: +scleral icterus. NECK: Supple. PULMONARY: Decreased breath sounds at the bases. CARDIAC: Regular rate and rhythm. ABDOMEN: Distended, + fluid wave. Bowel sounds positive. EXTREMITIES: trace-1+ pitting edema ankles/sacrum ; R arm in sling NEUROLOGICALLY: brenner, fluent speech; today less confused DERMATOLOGIC: No rash or ulcers noted. multiple ecchymoses Current Inpatient Medications Medications (Trade) Dose Ordered Sig/Betty Route Start Time Stop Time Status Last Admin Dose Admin Heparin Sodium (Porcine) (Heparin Sq 5000 Unit/0.5ml) 5,000 unit Q8 SQ 06/13/17 22:00 07/13/17 21:59 Future Hold 06/14/17 21:51 5,000 UNIT Ondansetron HCl (Zofran Inj) 4 mg Q6H PRN IV 06/13/17 18:45 07/13/17 18:44 06/16/17 23:44 4 MG Cholecalciferol (Vitamin D Tab) 400 inter.unit BID PO 06/13/17 21:00 07/13/17 20:59 06/17/17 21:01 400 INTER.UNIT Folic Acid (Folvite Tab) 1 mg QAM PO 06/14/17 09:00 07/14/17 08:59 06/17/17 07:39 1 MG Multivitamins/ Minerals (Multivitamin W/ Minerals Tab) 1 tab DAILY PO 06/14/17 09:00 07/14/17 08:59 06/17/17 07:40 1 TAB Rifaximin (Xifaxan Tab) 550 mg BID PO 06/13/17 21:00 07/13/17 20:59 06/17/17 21:04 550 MG Thiamine HCl (Vitamin B-1 Tab) 100 mg Q24H PO 06/13/17 20:00 07/13/17 19:59 06/17/17 21:01 100 MG Albumin Human (Albumin 25%) 25 gm TID IV 06/15/17 14:00 06/18/17 13:59 06/17/17 21:06 25 GM Midodrine (Proamatine Tab) 15 mg BID PO 06/15/17 21:00 07/13/17 20:59 06/17/17 21:03 15 MG Octreotide Acetate 500 mcg/ Sodium Chloride 105 ml @ 10 mls/hr [id number] IV 06/15/17 13:15 07/15/17 13:14 06/18/17 04:25 10 MLS/HR Lactulose (Chronulac Syrup) 15 gm QID PO 06/15/17 17:00 07/13/17 20:59 06/17/17 21:04 15 GM Lansoprazole (Prevacid Solutab) 15 mg BID GT 06/15/17 21:00 07/15/17 20:59 06/17/17 21:02 15 MG Ciprofloxacin (Cipro Tab) 500 mg DAILY PO 06/17/17 09:00 06/27/17 08:59 06/17/17 07:42 500 MG Levalbuterol (Xopenex 0.31MG/ 3ML Neb) 0.31 mg Q6R PRN INH 06/16/17 15:00 07/13/17 20:59 Oxycodone HCl (Roxicodone Immediate Rel Tab) 5 mg Q6HWA PRN PO 06/16/17 14:30 06/30/17 14:29 06/17/17 22:58 5 MG Furosemide 20 mg/ Syringe 2 ml @ 4 mls/min BID@0900,1400 IV 06/17/17 09:00 06/18/17 13:59 06/17/17 14:00 4 MLS/MIN Lorazepam (Ativan Tab) 0.25 mg Q12H PRN PO 06/16/17 22:15 07/16/17 15:29 06/17/17 21:07 0.25 MG Last 24 Hours Test 06/17/17 17:08 06/18/17 05:40 Hemoglobin 8.0 g/dL 7.0 g/dL Hematocrit 24.3 % 21.0 % White Blood Count 4.21 K/uL Red Blood Count 1.99 M/uL Mean Corpuscular Volume 105.5 fL Mean Corpuscular Hemoglobin 35.2 pg Mean Corpuscular Hemoglobin Concent 33.3 g/dl RDW Standard Deviation 74.7 fL RDW Coefficient of Variation 19.4 % Platelet Count 168 K/uL Mean Platelet Volume 9.3 fL Prothrombin Time 19.2 SECONDS Prothromb Time International Ratio 1.9 Sodium Level 133 mmol/L Potassium Level 3.8 mmol/L Chloride Level 97 mmol/L Carbon Dioxide Level 28 mmol/L Anion Gap 8.0 mmol/L Blood Urea Nitrogen 22 mg/dl Creatinine 1.24 mg/dl Est Creatinine Clear Calc Drug Dose 53.0 ml/min Estimated GFR () 57.0 Estimated GFR (Non- 49.2 BUN/Creatinine Ratio 17.4 Random Glucose 74 mg/dl Calcium Level 8.7 mg/dl Assessment & Plan 52 y/o F w/ alcoholic liver cirrhosis admitted w/ worsening volume overload, tracy , hyponatremia w/ presenting Na 121. had 7L paracentesis 06/14. ongoing fluid overload and possibly per primary service for another paracentesis before d/c 1. Hypervolemic hyponatremia, nearly resolved. sNa improving > 133 past 2 days -cont 1 liter fluid restriction > at d/c, recommend 1.2L restrction and <2 gm daily Na -cont albumin IV 25 gm tid + lasix 20 mg w/ am/afternoon albumin dosing -cont to hold spironolactone unless for d/c next 24 hrs; then as below -f/u other GI recs -cont strict I/O 2. TRACY on CKD, prerenal w/ good response to albumin resuscitation overall though over past weeks/months worsening CKD >her baseline creatinine through february 2017 was 0.8-0.9; then in march/ april more in mid 1's; currently running low 3s, which is severe renal failure in this small framed liver pt; if we can maintain creatinine mid 1's for next few mos, I would consider that success from kidney standpoint -off octreotide now; defer to GI re midodrine or not >when within 24 hrs of d/c, recommend giving both IV lasix doses then stopping both IV albumin/lasix and starting spironolactone 25 mg daily and lasix 40 mg po 2 daily doses at least 4-6 hrs apart; on day of transition from IV to po would give spironolactone only and IV lasix both doses if possible -check bmp daily while in house; check bmp weekly x 3 after d/c -if not already est in CKD clinic needs to est w/ me or Dr Horan after d/c w/in 4 -6 wks or next available; not urgent but we should follow as outpt Appreciate consult; will follow with you; care coordinated w/ Dr. Barton
[2017-06-18] MEDS ORDERED: CPR500 PO (09:51)
[2017-06-18] MEDS ORDERED: LACT10SO53 PO (09:51)
[2017-06-18] MEDS ORDERED: PRMT10 PO (09:51)
--- NOTE | 2017-06-18 10:44 | NUR ---
A: Report called to YANA Turner for transfer to room 253-2. All medications, belongings, and chart sent along with patient. monitoring engineer removed. Transferred via wheelchair by YANA Graham.
--- NOTE | 2017-06-18 10:50 | Gastroenterology Progress Note ---
Progress Note Date of Service: Jun 18, 2017 Subjective Pt evaluation today including: conversation w/ patient, physical exam, chart review, lab review, review of inpatient medication list Pt had a BM today, felt abd distension is improved. Doing ok, denies any acute events overnight, no CP, SOB, abd pain, n/v. Ate breakfast well, leg swelling improved. Review of Systems Constitutional: No fever, No chills Respiratory: No cough, No shortness of breath Cardiac: No chest pain Abdomen: No pain, No nausea, No vomiting Skin: + jaundice Medications Current Inpatient Medications Medications (Trade) Dose Ordered Sig/Betty Route Start Time Stop Time Status Last Admin Dose Admin Heparin Sodium (Porcine) (Heparin Sq 5000 Unit/0.5ml) 5,000 unit Q8 SQ 06/13/17 22:00 07/13/17 21:59 Future Hold 06/14/17 21:51 5,000 UNIT Ondansetron HCl (Zofran Inj) 4 mg Q6H PRN IV 06/13/17 18:45 07/13/17 18:44 06/16/17 23:44 4 MG Cholecalciferol (Vitamin D Tab) 400 inter.unit BID PO 06/13/17 21:00 07/13/17 20:59 06/18/17 09:16 400 INTER.UNIT Folic Acid (Folvite Tab) 1 mg QAM PO 06/14/17 09:00 07/14/17 08:59 06/18/17 09:15 1 MG Multivitamins/ Minerals (Multivitamin W/ Minerals Tab) 1 tab DAILY PO 06/14/17 09:00 07/14/17 08:59 06/18/17 09:16 1 TAB Rifaximin (Xifaxan Tab) 550 mg BID PO 06/13/17 21:00 07/13/17 20:59 06/18/17 09:15 550 MG Thiamine HCl (Vitamin B-1 Tab) 100 mg Q24H PO 06/13/17 20:00 07/13/17 19:59 06/17/17 21:01 100 MG Albumin Human (Albumin 25%) 25 gm TID IV 06/15/17 14:00 06/18/17 13:59 06/18/17 09:15 25 GM Midodrine (Proamatine Tab) 15 mg BID PO 06/15/17 21:00 07/13/17 20:59 06/18/17 09:16 20 MG Octreotide Acetate 500 mcg/ Sodium Chloride 105 ml @ 10 mls/hr [id number] IV 06/15/17 13:15 07/15/17 13:14 06/18/17 04:25 10 MLS/HR Lactulose (Chronulac Syrup) 15 gm QID PO 06/15/17 17:00 07/13/17 20:59 06/18/17 09:17 15 GM Lansoprazole (Prevacid Solutab) 15 mg BID GT 06/15/17 21:00 07/15/17 20:59 06/18/17 09:17 15 MG Ciprofloxacin (Cipro Tab) 500 mg DAILY PO 06/17/17 09:00 06/27/17 08:59 06/18/17 09:16 500 MG Levalbuterol (Xopenex 0.31MG/ 3ML Neb) 0.31 mg Q6R PRN INH 06/16/17 15:00 07/13/17 20:59 Oxycodone HCl (Roxicodone Immediate Rel Tab) 5 mg Q6HWA PRN PO 06/16/17 14:30 06/30/17 14:29 06/18/17 09:27 5 MG Furosemide 20 mg/ Syringe 2 ml @ 4 mls/min BID@0900,1400 IV 06/17/17 09:00 06/18/17 13:59 06/18/17 09:14 4 MLS/MIN Lorazepam (Ativan Tab) 0.25 mg Q12H PRN PO 06/16/17 22:15 07/16/17 15:29 06/17/17 21:07 0.25 MG Objective Vital Signs Date Time Temp Pulse Resp B/P (MAP) Pulse Ox O2 Delivery O2 Flow Rate FiO2 06/18/17 08:00 Room Air 06/18/17 07:24 37.4 78 18 102/49 (66) 93 Room Air 06/18/17 04:00 93 Room Air 2.0 06/18/17 03:50 36.8 74 20 115/63 (80) 92 Room Air 06/18/17 00:01 93 Room Air 2.0 06/17/17 23:45 36.9 77 18 110/67 (81) 93 Room Air 06/17/17 20:07 36.8 79 20 108/62 (77) 93 Room Air 06/17/17 20:00 94 Room Air 2.0 06/17/17 16:00 Room Air 06/17/17 15:40 36.7 73 20 108/58 (75) 94 Room Air 06/17/17 12:00 Room Air 06/17/17 11:04 36.9 72 18 115/65 (82) 94 Room Air Physical Exam General Appearance: WD/WN, no apparent distress Eyes: PERRL, EOMI (slightly icteric sclera ), + pertinent finding Neck: supple, no JVD, trachea midline Respiratory/Chest: normal breath sounds, no respiratory distress, no accessory muscle use Cardiovascular: regular rate, rhythm, no gallop, no murmur Abdomen: normal bowel sounds, non tender, soft, + distended Extremities: + swelling (+1 edema bilateral LE), + pertinent finding (R arm in sling (humerus fracture)) Neurologic/Psych: alert, normal mood/affect, oriented x 3 Skin: + jaundice, + pertinent finding (spider angiomas on face, chest ) Laboratory Results Last 24 Hours Test 06/17/17 17:08 06/18/17 05:40 Hemoglobin 8.0 g/dL 7.0 g/dL Hematocrit 24.3 % 21.0 % White Blood Count 4.21 K/uL Red Blood Count 1.99 M/uL Mean Corpuscular Volume 105.5 fL Mean Corpuscular Hemoglobin 35.2 pg Mean Corpuscular Hemoglobin Concent 33.3 g/dl RDW Standard Deviation 74.7 fL RDW Coefficient of Variation 19.4 % Platelet Count 168 K/uL Mean Platelet Volume 9.3 fL Prothrombin Time 19.2 SECONDS Prothromb Time International Ratio 1.9 Sodium Level 133 mmol/L Potassium Level 3.8 mmol/L Chloride Level 97 mmol/L Carbon Dioxide Level 28 mmol/L Anion Gap 8.0 mmol/L Blood Urea Nitrogen 22 mg/dl Creatinine 1.24 mg/dl Est Creatinine Clear Calc Drug Dose 53.0 ml/min Estimated GFR () 57.0 Estimated GFR (Non- 49.2 BUN/Creatinine Ratio 17.4 Random Glucose 74 mg/dl Calcium Level 8.7 mg/dl Assessment and Plan Patient is a 52 year old female w ETOH cirrhosis presented w hyponatremia, volume overload w ascites, edema and worsening renal function. MELD: 33 Renal function is improving on Midodrine, Octreotide, Albumin. Hyponatremia also improving, on FR. Did have paracentesis on 06/14 (6.5L ascites removed). Abd distended but not tense Plan - Hx of variceal bleed, last EGD 04/2017 showed grade 1 varices. Not on non selective rhina, unsure why. At this point NSBB are contraindicated in view of TRACY. - Continue Xifaxan and Lactulose. - Repeat paracentesis tomorrow; INR today 1.9 and will give Vit K 5mg IV x 1 dose today, recheck INR tomorrow. - Hold diuretics till kidney function improves but can restart outpt dose when DC'd - Continue Midorine 15mg BID, Octreotide gtt, Albumin 25g TID. Fluid restriction 1L recommended. - She would likely need prison SBP prophylaxis (Cipro 500mg once daily) given low albumin and protein in ascites fluid. - Noted L pleural effusion ? hepatic hydrothorax, will monitor for now. - 2g Na diet. - Monitor labs. - Continue ETOH cessation, no APAP for >2g a day. ATTESTATION: I have performed a history and physical examination of this patient and reviewed the electronic record. Specifically, on physical examination there is moderate abdominal distention without tenderness. I have discussed the case with WILBERT Aiken. The above note reflects my findings, conclusions, and recommendations. Raad Perez MD
[2017-06-18] MEDS ORDERED: PHYTONADIONE INJ 5 MG in SODIUM CHLORIDE 0.9% 50ML 50 ML IV ONE (11:00)
--- NOTE | 2017-06-18 11:00 | NUR ---
A: Patient arrived to room. Alert and oriented x4. Supervision with transfers. IV Sandostatin infusing. Oriented to room and call clark.
[2017-06-18] MEDS: LORAZEPAM 0.5 MG TAB PO PRN (12:21)
--- NOTE | 2017-06-18 16:52 | Progress Note ---
Internal Med Progress Note Date of Service: Jun 18, 2017. Provider Documentation: SUBJECTIVE: mentions feeling better , no complain of SOB no fever or chills conversing appropriately no confusion noted has persisted abdominal distention OBJECTIVE: Vital Signs-as noted below Exam: General-chronically ill appearing , jaundiced Eyes-icteric sclera ENT-moist oral mucosa /multiple spider nevi present on lips , mostly Neck-no JVD , no thyromegaly , trachea midline Lungs-clear to auscultate , no wheeze or rales Heart-regular S1/S2 Abdomen-+ distention , + ascites , non tender , bowel sound active Extremities-generalized petechial rash , swenson erythema , deeply icteric skin , spider nevi-stigmata of chronic liver disease present Neuro-AAO x3, no focal neurological deficit , no Asterixis Lab data as noted below. ASSESSMENT & PLAN: HEPATIC CIRRHOSIS/ALCOHOLIC LIVER DISEASE : H/o portal HTN with bleeding varices s/p banding. Presented with abdominal distention /ascites Has been getting paracentesis every 2 weeks or so with 5-7L ascites removal. 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 High risk for infection given recurrent paracentesis GI consulted, following closely , appreciate input HYPONATREMIA Possible due to vol overload for decompensated cirrhosis Na level improved cont Fluid restriction 1.2 L daily Nephrology on board-appreciate consult TRACY on CKD stage 3 Creatine on admission 3.17 Possible related to hepatorenal-Baseline Cr 1-1.2 Creatine improved to 1.6-> 1.2 today Spironolactone on hold Nephrology following Continue monitor BMP avoid NSAID's /contrast studies HX OF ETOH ABUSE Reports abstinence since November Pt is counselled to Continue strict ETOH abstinence GERD Protonix BID ANEMIA OF CHRONIC DISEASE : Hbg on admission 8.3 No evidence of GI bleed Hbg 7, PRBC Type and cross done Continue monitor cbc, transfuse prbc if Hb < 7 HEPATIC CIRRHOSIS/ALCOHOLIC LIVER DISEASE : H/o portal HTN with bleeding varices s/p banding. on iv Octreotide gtt GI following closely GERD Protonix BID Right Shoulder Fracture s/p fall Continue wearing sling Continue pain control DVT PROPHYLAXIS Continue holding heparin subq for now due to low hgb SCDs CODE STATUS Full Code Disposition Expected to be discharged home when medically stable Consultants: Nephrology gastro Vital Signs: Date Time Temp Pulse Resp B/P (MAP) Pulse Ox O2 Delivery O2 Flow Rate FiO2 06/20/17 07:51 37.0 77 18 94/54 (67) 92 Room Air 06/20/17 00:14 37.1 84 18 106/54 (71) 93 Room Air 06/19/17 23:55 Room Air 06/19/17 20:52 76 103/67 (79) 94 Room Air 06/19/17 16:03 36.7 76 18 107/63 (78) 92 Room Air 06/19/17 16:00 92 Room Air 06/19/17 15:46 36.7 69 14 100/52 (68) 96 Room Air Lab Results: Results Past 24 Hours Test 06/20/17 06:36 Range/Units White Blood Count 4.44 4.8-10.8 K/uL Red Blood Count 1.93 4.2-5.4 M/uL Hemoglobin 6.9 12.0-16.0 g/dL Hematocrit 20.6 37-47 % Mean Corpuscular Volume 106.7 80-100 fL Mean Corpuscular Hemoglobin 35.8 25-34 pg Mean Corpuscular Hemoglobin Concent 33.5 32-36 g/dl RDW Standard Deviation 75.6 36.4-46.3 fL RDW Coefficient of Variation 19.4 11.5-14.5 % Platelet Count 145 130-400 K/uL Mean Platelet Volume 9.4 7.4-10.4 fL Sodium Level 132 136-145 mmol/L Potassium Level 3.4 3.5-5.1 mmol/L Chloride Level 99 98-107 mmol/L Carbon Dioxide Level 28 21-32 mmol/L Anion Gap 5.0 3-11 mmol/L Blood Urea Nitrogen 12 7-18 mg/dl Creatinine 1.00 0.60-1.20 mg/dl Est Creatinine Clear Calc Drug Dose 65.7 ml/min Estimated GFR () 74.0 Estimated GFR (Non- 63.8 BUN/Creatinine Ratio 11.9 10-20 Random Glucose 81 70-99 mg/dl Calcium Level 8.6 8.5-10.1 mg/dl Magnesium Level 1.8 1.8-2.4 mg/dl
--- NOTE | 2017-06-18 18:02 | NUR ---
Case Management: Consulted for discharge planning. Met with pt who reports living with her , Johny, in a 2 story home. Pt states Johny works 3am to 12:30pm and he is usually home around the time she wakes up. Pt states she was putting up decorations and cleaning when she lost her balance and grabbed a chair which tipped and caused her to fall. Asked pt if she gets confused or cloudy sometimes and pt states she does when her level that's checked in the blood is high. Explained ammonia level and that taking Lactulose helps bind the ammonia so it can come out in her poop. Pt verbalized understanding and states today is the first day she has pooped since Saturday. Pt feels clear and oriented during our conversation. Pt states Dr. Funk does her paracentesis outpatient and follows her ammonia level. Pt declined home health and plans to return home with her on discharge. Transferred to [facility]. Case Management to follow.
--- NOTE | 2017-06-18 18:21 | NUR ---
ID: Patient alert and oriented x4. Supervision with transfers. Right arm in sling. Pain relieved with Roxicodone PO. Continue with IV Sandostatin. Received IV Vitamin K this afternoon. Paracentesis planned for morning. VSS on RA. Tolerating diet- 1000ml fluid restriction. Anticipated discharge uncertain at present time.
[2017-06-18] MEDS: MoRPHine SULFATE 2 MG/ML CARP IV PRN (19:53)
[2017-06-18] MEDS: THIAMINE HCL 100 MG TAB PO SCH (19:56)
[2017-06-19] MEDS: OCTREOTIDE ACETATE INJ 500 MCG in NSS 100ML IV SCH ×3 (00:44→21:56)
[2017-06-19] MEDS: MoRPHine SULFATE 2 MG/ML CARP IV PRN ×3 (05:09→21:52)
[2017-06-19 07:00] LABS: HEMATOCRIT 22.2 % (37-47); HEMOGLOBIN 7.2 g/dL (12.0-16.0); MEAN CELL VOLUME 106.7 fL (80-100); MEAN CORPUSCULAR HEMOGLOBIN 34.6 pg (25-34); MEAN CORPUSCULAR HGB CONC 32.4 g/dl (32-36); MEAN PLATELET VOLUME 9.3 fL (7.4-10.4); PLATELET COUNT 168 K/uL (130-400); RED CELL DISTRIBUTION WIDTH CV 19.5 % (11.5-14.5)
--- NOTE | 2017-06-19 07:11 | DIAGNOSTIC IMAGING REPORT ---
CHEST ONE VIEW PORTABLE HISTORY: LEFT SIDED PLEURAL EFFUSION COMPARISON: Chest 06/13/2017. FINDINGS: Moderate left pleural effusion, unchanged. Left mid lung zone densities are also stable. The right lung is clear. No pneumothorax. The heart is stable in size. Right humeral neck fractures again noted. IMPRESSION: 1. No change in the moderate left pleural effusion. 2. The right humeral neck fracture is again noted. Electronically signed by: Michael De Leon M.D. 06/19/2017 7:10 AM Dictated Date/Time: 06/19/2017 7:09 AM
[2017-06-19 07:12] LABS: INR 1.7 (0.9-1.1)
[2017-06-19 07:26] VITALS: BP 112/50; PULSE 76; TEMP 36.9; O2SAT 92
[2017-06-19] MEDS: MIDODRINE 10 MG TAB PO SCH ×2 (07:44→20:54)
[2017-06-19] MEDS: CHOLECALCIFEROL 400 INTER.UNIT TAB PO SCH ×2 (07:44→20:54)
[2017-06-19] MEDS: RIFAXIMIN TAB 550 MG TAB PO SCH ×2 (07:44→20:54)
[2017-06-19] MEDS: CEROVITE ADV FORMULA TAB PO SCH (07:44)
[2017-06-19] MEDS: LACTULOSE SYRUP 10 GM/15 ML BTL 473 ML PO SCH ×4 (07:44→20:54)
[2017-06-19] MEDS: CIPROFLOXACIN 500 MG TAB PO SCH (07:44)
[2017-06-19] MEDS: LANSOPRAZOLE SOLUTAB 15 MG GT SCH ×2 (07:44→20:54)
[2017-06-19 07:45] LABS: CALCIUM 8.9 mg/dl (8.5-10.1); CREATININE 1.12 mg/dl (0.60-1.20); POTASSIUM 3.7 mmol/L (3.5-5.1)
--- NOTE | 2017-06-19 09:00 | NUR ---
ID: Patient admitted with end stage liver disease. A&OX4. Denies pain, SOB, N/V. Sandostatin with NSS infusing at 15ml/hr left wrist. SL left AC. Trace BLE edema, positive pulses. Lungs are clear on room air. Abdomen is firm, distended, nontender. Right shoulder fracture, sling is in place. Independent in the room. Hourly rounding. Encouraged to ring for assistance. Will continue to monitor.
--- NOTE | 2017-06-19 09:37 | Nephrology Progress Note ---
Nephrology Progress Note Date of Service: Jun 19, 2017. Subjective 52 yo female with hyponatremia and marry in setting of liver cirrhosis and volume overload. diuresing nicely and creatinine and sodium levels have both improved. pt still with abdominal distention, tentatively scheduled for paracentesis today although inr 1.7 today-did get vitamin k iv yesterday. Objective Date Time Temp Pulse Resp B/P (MAP) Pulse Ox O2 Delivery O2 Flow Rate FiO2 06/19/17 08:00 Room Air 06/19/17 07:26 36.9 76 18 112/50 (70) 92 Room Air 06/19/17 00:00 Room Air 06/18/17 23:20 37.4 76 18 111/51 (71) 92 Room Air 06/18/17 20:00 Room Air 06/18/17 18:00 93 Room Air 06/18/17 16:28 36.7 66 18 97/52 (67) 98 06/18/17 12:30 36.8 66 20 92/50 (64) 96 Room Air 06/18/17 11:32 36.8 68 18 106/58 (74) 98 Room Air 06/18/17 11:20 93 Room Air Physical Exam: General-aaox3 Eyes-+scleral icterus ENT-mmm Neck-supple Lungs-cta Heart-rrr Abdomen-bs+/distended Extremities-no edema Neuro-nonfocal Current Inpatient Medications Medications (Trade) Dose Ordered Sig/Betty Route Start Time Stop Time Status Last Admin Dose Admin Heparin Sodium (Porcine) (Heparin Sq 5000 Unit/0.5ml) 5,000 unit Q8 SQ 06/13/17 22:00 07/13/17 21:59 Future Hold 06/14/17 21:51 5,000 UNIT Ondansetron HCl (Zofran Inj) 4 mg Q6H PRN IV 06/13/17 18:45 07/13/17 18:44 06/16/17 23:44 4 MG Cholecalciferol (Vitamin D Tab) 400 inter.unit BID PO 06/13/17 21:00 18 20:59 06/19/17 07:44 400 INTER.UNIT Folic Acid (Folvite Tab) 1 mg QAM PO 06/14/17 09:00 07/14/17 08:59 06/19/17 07:44 1 MG Multivitamins/ Minerals (Multivitamin W/ Minerals Tab) 1 tab DAILY PO 06/14/17 09:00 07/14/17 08:59 06/19/17 07:44 1 TAB Rifaximin (Xifaxan Tab) 550 mg BID PO 06/13/17 21:00 07/13/17 20:59 06/19/17 07:44 550 MG Thiamine HCl (Vitamin B-1 Tab) 100 mg Q24H PO 06/13/17 20:00 07/13/17 19:59 06/18/17 19:56 100 MG Midodrine (Proamatine Tab) 15 mg BID PO 06/15/17 21:00 07/13/17 20:59 06/19/17 07:44 15 MG Octreotide Acetate 500 mcg/ Sodium Chloride 105 ml @ 10 mls/hr [id number] IV 06/15/17 13:15 07/15/17 13:14 06/19/17 00:44 10 MLS/HR Lactulose (Chronulac Syrup) 15 gm QID PO 06/15/17 17:00 07/13/17 20:59 06/19/17 07:44 15 GM Lansoprazole (Prevacid Solutab) 15 mg BID GT 06/15/17 21:00 07/15/17 20:59 06/19/17 07:44 15 MG Ciprofloxacin (Cipro Tab) 500 mg DAILY PO 06/17/17 09:00 06/27/17 08:59 06/19/17 07:44 500 MG Levalbuterol (Xopenex 0.31MG/ 3ML Neb) 0.31 mg Q6R PRN INH 06/16/17 15:00 07/13/17 20:59 Oxycodone HCl (Roxicodone Immediate Rel Tab) 5 mg Q6HWA PRN PO 06/16/17 14:30 06/30/17 14:29 06/18/17 23:01 5 MG Lorazepam (Ativan Tab) 0.25 mg Q12H PRN PO 06/16/17 22:15 07/16/17 15:29 06/18/17 12:21 0.25 MG Morphine Sulfate (MoRPHine SULFATE INJ) 1 mg Q6 PRN IV 06/18/17 19:15 07/02/17 19:14 06/19/17 05:09 1 MG Last 24 Hours Test 06/19/17 06:37 White Blood Count 4.80 K/uL Red Blood Count 2.08 M/uL Hemoglobin 7.2 g/dL Hematocrit 22.2 % Mean Corpuscular Volume 106.7 fL Mean Corpuscular Hemoglobin 34.6 pg Mean Corpuscular Hemoglobin Concent 32.4 g/dl RDW Standard Deviation 75.0 fL RDW Coefficient of Variation 19.5 % Platelet Count 168 K/uL Mean Platelet Volume 9.3 fL Prothrombin Time 17.4 SECONDS Prothromb Time International Ratio 1.7 Sodium Level 131 mmol/L Potassium Level 3.7 mmol/L Chloride Level 97 mmol/L Carbon Dioxide Level 29 mmol/L Anion Gap 5.0 mmol/L Blood Urea Nitrogen 15 mg/dl Creatinine 1.12 mg/dl Est Creatinine Clear Calc Drug Dose 58.6 ml/min Estimated GFR () 64.5 Estimated GFR (Non- 55.6 BUN/Creatinine Ratio 13.5 Random Glucose 78 mg/dl Calcium Level 8.9 mg/dl Magnesium Level 1.6 mg/dl Assessment & Plan [id number] octreotide and midodrine. creatinine has improved. was on albumin and lasix to help with volume status. ok to continue the albumin and lasix till discharge.
[2017-06-19] MEDS: OXYCODONE HCL IR 5 MG TAB (IMMEDIATE RELEASE) PO PRN ×2 (09:57→18:21)
[2017-06-19] MEDS ORDERED: MAGNESIUM SULFATE 1GM / D5W 1 GM in PREMIXED IN D5W 100 ML IV SCH (10:00)
[2017-06-19] MEDS: ALBUMIN 25% 50 ML with FUROSEMIDE INJ 20 MG IV SCH ×4 (10:15→20:58)
--- NOTE | 2017-06-19 11:17 | Gastroenterology Progress Note ---
Progress Note Date of Service: Jun 19, 2017 Subjective Pt evaluation today including: conversation w/ patient, physical exam, chart review, lab review, review of inpatient medication list Pt feels well, scheduled for u/s paracentesis at 2P today. INR 1.7 after Vit K 5mg IV yesterday. She denies any issues w abd pain, n/v, ate breakfast well today. Feels abd is more distended today. Continues to have BMs w/o rectal bleeding. Review of Systems Constitutional: No fever, No chills Respiratory: No cough, No shortness of breath Cardiac: No chest pain Abdomen: + see HPI, No pain, No nausea, No vomiting Skin: + jaundice Medications Current Inpatient Medications Medications (Trade) Dose Ordered Sig/Betty Route Start Time Stop Time Status Last Admin Dose Admin Heparin Sodium (Porcine) (Heparin Sq 5000 Unit/0.5ml) 5,000 unit Q8 SQ 06/13/17 22:00 07/13/17 21:59 Future Hold 06/14/17 21:51 5,000 UNIT Ondansetron HCl (Zofran Inj) 4 mg Q6H PRN IV 06/13/17 18:45 07/13/17 18:44 06/16/17 23:44 4 MG Cholecalciferol (Vitamin D Tab) 400 inter.unit BID PO 06/13/17 21:00 07/13/17 20:59 06/19/17 07:44 400 INTER.UNIT Folic Acid (Folvite Tab) 1 mg QAM PO 06/14/17 09:00 07/14/17 08:59 06/19/17 07:44 1 MG Multivitamins/ Minerals (Multivitamin W/ Minerals Tab) 1 tab DAILY PO 06/14/17 09:00 07/14/17 08:59 06/19/17 07:44 1 TAB Rifaximin (Xifaxan Tab) 550 mg BID PO 06/13/17 21:00 07/13/17 20:59 06/19/17 07:44 550 MG Thiamine HCl (Vitamin B-1 Tab) 100 mg Q24H PO 06/13/17 20:00 07/13/17 19:59 06/18/17 19:56 100 MG Midodrine (Proamatine Tab) 15 mg BID PO 06/15/17 21:00 07/13/17 20:59 06/19/17 07:44 15 MG Octreotide Acetate 500 mcg/ Sodium Chloride 105 ml @ 10 mls/hr [id number] IV 06/15/17 13:15 07/15/17 13:14 06/19/17 09:59 10 MLS/HR Lactulose (Chronulac Syrup) 15 gm QID PO 06/15/17 17:00 07/13/17 20:59 06/19/17 07:44 15 GM Lansoprazole (Prevacid Solutab) 15 mg BID GT 06/15/17 21:00 07/15/17 20:59 06/19/17 07:44 15 MG Ciprofloxacin (Cipro Tab) 500 mg DAILY PO 06/17/17 09:00 06/27/17 08:59 06/19/17 07:44 500 MG Levalbuterol (Xopenex 0.31MG/ 3ML Neb) 0.31 mg Q6R PRN INH 06/16/17 15:00 07/13/17 20:59 Oxycodone HCl (Roxicodone Immediate Rel Tab) 5 mg Q6HWA PRN PO 06/16/17 14:30 06/30/17 14:29 06/19/17 09:57 5 MG Lorazepam (Ativan Tab) 0.25 mg Q12H PRN PO 06/16/17 22:15 07/16/17 15:29 06/18/17 12:21 0.25 MG Morphine Sulfate (MoRPHine SULFATE INJ) 1 mg Q6 PRN IV 06/18/17 19:15 07/02/17 19:14 06/19/17 05:09 1 MG Furosemide 20 mg/ Albumin Human 52 ml @ 54 mls/hr BID IV 06/19/17 10:00 06/22/17 09:59 06/19/17 10:15 54 MLS/HR Objective Vital Signs Date Time Temp Pulse Resp B/P (MAP) Pulse Ox O2 Delivery O2 Flow Rate FiO2 06/19/17 08:00 Room Air 06/19/17 07:26 36.9 76 18 112/50 (70) 92 Room Air 06/19/17 00:00 Room Air 06/18/17 23:20 37.4 76 18 111/51 (71) 92 Room Air 06/18/17 20:00 Room Air 06/18/17 18:00 93 Room Air 06/18/17 16:28 36.7 66 18 97/52 (67) 98 06/18/17 12:30 36.8 66 20 92/50 (64) 96 Room Air 06/18/17 11:32 36.8 68 18 106/58 (74) 98 Room Air 06/18/17 11:20 93 Room Air Physical Exam General Appearance: WD/WN, no apparent distress Eyes: EOMI, + pertinent finding (icteric sclera) Neck: supple, no JVD, trachea midline Respiratory/Chest: normal breath sounds, no respiratory distress, no accessory muscle use Cardiovascular: regular rate, rhythm, no gallop, no murmur Abdomen: normal bowel sounds, non tender, + distended Extremities: normal inspection, no pedal edema, no calf tenderness Neurologic/Psych: alert, normal mood/affect, oriented x 3 Skin: + jaundice, + pertinent finding (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, neck, chest ) Laboratory Results Last 24 Hours Test 06/19/17 06:37 White Blood Count 4.80 K/uL Red Blood Count 2.08 M/uL Hemoglobin 7.2 g/dL Hematocrit 22.2 % Mean Corpuscular Volume 106.7 fL Mean Corpuscular Hemoglobin 34.6 pg Mean Corpuscular Hemoglobin Concent 32.4 g/dl RDW Standard Deviation 75.0 fL RDW Coefficient of Variation 19.5 % Platelet Count 168 K/uL Mean Platelet Volume 9.3 fL Prothrombin Time 17.4 SECONDS Prothromb Time International Ratio 1.7 Sodium Level 131 mmol/L Potassium Level 3.7 mmol/L Chloride Level 97 mmol/L Carbon Dioxide Level 29 mmol/L Anion Gap 5.0 mmol/L Blood Urea Nitrogen 15 mg/dl Creatinine 1.12 mg/dl Est Creatinine Clear Calc Drug Dose 58.6 ml/min Estimated GFR () 64.5 Estimated GFR (Non- 55.6 BUN/Creatinine Ratio 13.5 Random Glucose 78 mg/dl Calcium Level 8.9 mg/dl Magnesium Level 1.6 mg/dl Assessment and Plan Patient is a 52 year old female w ETOH cirrhosis presented w hyponatremia, volume overload w ascites, edema and worsening renal function. MELD: 33 Renal function now normalized on Midodrine, Octreotide. Albumin DC'd. Hyponatremia also improving, on FR. Did have paracentesis on 06/14 (6.5L ascites removed). Abd distended but not tense Plan - Hx of variceal bleed, last EGD 04/2017 showed grade 1 varices. Not on non selective rhina, unsure why. At this point NSBB are contraindicated in view of TRACY. - Continue Xifaxan and Lactulose. - Repeat paracentesis today; INR today 1.7, this is ok per radiologist. Will given Albumin 25% 25g before and after paracentesis. - OK to restart diuretics at home dose upon DC - Continue Midorine 15mg BID, Octreotide gtt.Fluid restriction 1L recommended. - She would likely need allocations clerk SBP prophylaxis (Cipro 500mg once daily) given low albumin and protein in ascites fluid. - Noted L pleural effusion ? hepatic hydrothorax, will monitor for now. - 2g Na diet. - Monitor labs. - Continue ETOH cessation, no APAP for >2g a day. - Should be ok for DC from GI standpoint after paracentesis completed. ATTESTATION: I have performed a history and physical examination of this patient and reviewed the electronic record. Specifically, on physical examination after paracemtesis, abdomen is soft and nontender. I have discussed the case with WILBERT Aiken. The above note reflects my findings, conclusions, and recommendations. Raad Perez MD
[2017-06-19] MEDS: ALBUMIN HUMAN 25% 12.5 GM/50 ML VIAL IV SCH ×2 (11:31→15:51)
--- NOTE | 2017-06-19 11:51 | NUR ---
Case Management: Met with pt as she called to Case Management to request information on Social Security. Pt states she had filled out some forms but had messed them up and she only had 10 days to get them turned in. Pt could not tell me what forms she had filled out so I provided her with the phone number for the SS office in [place]. Pt was up independently to the chair during my visit. R arm in sling.
[2017-06-19 15:46] VITALS: BP 100/52; PULSE 69; TEMP 36.7; O2SAT 96
[2017-06-19 16:00] VITALS: O2SAT 92
[2017-06-19 16:03] VITALS: BP 107/63; PULSE 76; TEMP 36.7; O2SAT 92
--- NOTE | 2017-06-19 19:46 | Progress Note ---
Internal Med Progress Note Date of Service: Jun 19, 2017. Provider Documentation: SUBJECTIVE: had ultrasound guided paracentesis with removal of 4.8 ml of ascitic fluid feels much better today eager to be discharged home pt is counselled , given the large amount of ascitic fluid removal it will be ideal to keep her overnight and check renal function tomorrow pt will also benefit with continued Albumin and IV Lasix overnight pt agreeable to stay plan is to discharge home tomorrow if Lab work( renal function /H&H ) remains stable OBJECTIVE: Vital Signs-as noted below Exam: Exam: General-chronically ill appearing , jaundiced Eyes-icteric sclera ENT-moist oral mucosa /multiple spider nevi present on lips , mostly Neck-no JVD , no thyromegaly , trachea midline Lungs-clear to auscultate , no wheeze or rales Heart-regular S1/S2 Abdomen-+ distention , + ascites , non tender , bowel sound active Extremities-generalized petechial rash , swenson erythema , deeply icteric skin , spider nevi-stigmata of chronic liver disease present Neuro-AAO x3, no focal neurological deficit , no Asterixis Lab data as noted below. ASSESSMENT & PLAN: HEPATIC CIRRHOSIS/ALCOHOLIC LIVER DISEASE : H/o portal HTN with bleeding varices s/p banding. Presented with abdominal distention /ascites Has been getting paracentesis every 2 weeks or so with 5-7L ascites removal. Not a TIPS candidate due to high MELD 30 S/P thoracentesis done on 06/14 where 6.5 L ascites fluid removed Schedule to get u/s guided paracentesis this morning Spironolactone on hold due to elevated creatine-TRACY Fluid restriction to 1.2 L and 2g Na restriction pt is given IV 20 mg BID Lasix and albumin -to preserve intravascular vol while diuresing pt is continued on Rifampin/Midodrine/Lactulose Added Ciprofloxacin terminal gauger prophylaxis for SBP High risk for infection given recurrent paracentesis GI consulted, following closely , appreciate input pt underwent Paracenteses with removal of 4.8 L serosanguineous ascitic fluid tolerated the Procedure well will repeat BMP tomorrow to asses renal function after mobilizing large amount of fluid HYPONATREMIA Improved Possible due to vol overload for decompensated cirrhosis Na level improved cont Fluid restriction 1.2 L daily Nephrology on board-appreciate consult TRACY on CKD stage 3 improved Creatine on admission 3.17 Possible related to hepatorenal-Baseline Cr 1-1.2 Creatine improved to 1.6-> 1.2 _. 1.1 Spironolactone on hold Nephrology following Continue monitor BMP avoid NSAID's /contrast studies HX OF ETOH ABUSE Reports abstinence since November Pt is counselled to Continue strict ETOH abstinence GERD Protonix BID ANEMIA OF CHRONIC DISEASE : Hbg on admission 8.3 No evidence of GI bleed Hbg 7, PRBC Type and cross done Continue monitor cbc, transfuse prbc if Hb < 7 HEPATIC CIRRHOSIS/ALCOHOLIC LIVER DISEASE : H/o portal HTN with bleeding varices s/p banding. GERD Protonix BID Right Shoulder Fracture s/p fall Continue wearing sling Continue pain control DVT PROPHYLAXIS Continue holding heparin subq for now due to low hgb SCDs CODE STATUS Full Code DISPOSITION : plan is to discharge home tomorrow if Lab work( renal function /H&H ) remains stable Consultants: Nephrology gastro Vital Signs: Date Time Temp Pulse Resp B/P (MAP) Pulse Ox O2 Delivery O2 Flow Rate FiO2 06/20/17 14:43 36.6 68 18 96 Room Air 06/20/17 11:00 36.6 68 18 111/55 96 06/20/17 10:30 36.8 70 18 111/56 97 06/20/17 10:15 36.8 71 18 113/62 (79) 96 Room Air 06/20/17 09:54 36.8 72 18 103/53 97 0.0 06/20/17 08:30 Room Air 06/20/17 07:51 37.0 77 18 94/54 (67) 92 Room Air 06/20/17 00:14 37.1 84 18 106/54 (71) 93 Room Air 06/19/17 23:55 Room Air 06/19/17 20:52 76 103/67 (79) 94 Room Air 06/19/17 16:03 36.7 76 18 107/63 (78) 92 Room Air 06/19/17 16:00 92 Room Air 06/19/17 15:46 36.7 69 14 100/52 (68) 96 Room Air Lab Results: Results Past 24 Hours Test 06/20/17 06:36 Range/Units White Blood Count 4.44 4.8-10.8 K/uL Red Blood Count 1.93 4.2-5.4 M/uL Hemoglobin 6.9 12.0-16.0 g/dL Hematocrit 20.6 37-47 % Mean Corpuscular Volume 106.7 80-100 fL Mean Corpuscular Hemoglobin 35.8 25-34 pg Mean Corpuscular Hemoglobin Concent 33.5 32-36 g/dl RDW Standard Deviation 75.6 36.4-46.3 fL RDW Coefficient of Variation 19.4 11.5-14.5 % Platelet Count 145 130-400 K/uL Mean Platelet Volume 9.4 7.4-10.4 fL Sodium Level 132 136-145 mmol/L Potassium Level 3.4 3.5-5.1 mmol/L Chloride Level 99 98-107 mmol/L Carbon Dioxide Level 28 21-32 mmol/L Anion Gap 5.0 3-11 mmol/L Blood Urea Nitrogen 12 7-18 mg/dl Creatinine 1.00 0.60-1.20 mg/dl Est Creatinine Clear Calc Drug Dose 65.7 ml/min Estimated GFR () 74.0 Estimated GFR (Non- 63.8 BUN/Creatinine Ratio 11.9 10-20 Random Glucose 81 70-99 mg/dl Calcium Level 8.6 8.5-10.1 mg/dl Magnesium Level 1.8 1.8-2.4 mg/dl
[2017-06-19 20:52] VITALS: BP 103/67; PULSE 76; O2SAT 94
[2017-06-19] MEDS: THIAMINE HCL 100 MG TAB PO SCH (20:54)
[2017-06-20] VITALS (7 sets, daily range): BP systolic 94–113; BP diastolic 53–62; PULSE 68–84; TEMP 36.6–37.1; O2SAT 92–97
[2017-06-20] MEDS: OXYCODONE HCL IR 5 MG TAB (IMMEDIATE RELEASE) PO PRN ×3 (00:47→11:07)
[2017-06-20 07:16] LABS: HEMATOCRIT 20.6 % (37-47); HEMOGLOBIN 6.9 g/dL (12.0-16.0); MEAN CELL VOLUME 106.7 fL (80-100); MEAN CORPUSCULAR HEMOGLOBIN 35.8 pg (25-34); MEAN CORPUSCULAR HGB CONC 33.5 g/dl (32-36); MEAN PLATELET VOLUME 9.4 fL (7.4-10.4); PLATELET COUNT 145 K/uL (130-400); RED CELL DISTRIBUTION WIDTH CV 19.4 % (11.5-14.5); RED CELL DISTRIBUTION WIDTH SD 75.6 fL (36.4-46.3); WHITE BLOOD COUNT 4.44 K/uL (4.8-10.8)
--- NOTE | 2017-06-20 07:28 | DIAGNOSTIC IMAGING REPORT ---
ULTRASOUND-GUIDED THERAPEUTIC PARACENTESIS: HISTORY: Ascites Procedure: The procedure and its risks, benefits and alternatives were discussed with the patient and written informed consent was obtained. Preliminary ultrasound of the abdomen was performed to determine a safe needle entry site. The left lower quadrant quadrant was prepped and draped in the usual sterile fashion. 1% Lidocaine was used for local anesthesia. A paracentesis needle-sheath was inserted into the peritoneal space using ultrasound guidance. The needle was removed and the sheath was connected to tubing and a vacuum suction device. A total of 4.8 liters of serosanguineous ascites was aspirated. The sheath was removed and a sterile dressing applied. The patient tolerated the procedure well and there were no immediate complications. IMPRESSION: Ultrasound-guided therapeutic paracentesis with aspiration of 4.8 liters of serosanguineous ascites. Electronically signed by: Michael De Leon M.D. 06/20/2017 7:26 AM Dictated Date/Time: 06/20/2017 7:26 AM
[2017-06-20 07:35] LABS: CALCIUM 8.6 mg/dl (8.5-10.1); POTASSIUM 3.4 mmol/L (3.5-5.1)
[2017-06-20] MEDS: OCTREOTIDE ACETATE INJ 500 MCG in NSS 100ML IV SCH (08:08)
[2017-06-20] MEDS ORDERED: POTASSIUM CHLORIDE 20 MEQ TABCR PO STA (08:20)
[2017-06-20] MEDS ORDERED: SPIR25TA6 PO (08:26)
[2017-06-20] MEDS ORDERED: FURO40TA3 PO (08:28)
--- NOTE | 2017-06-20 08:45 | NUR ---
ID NOTE: Pt is alert and oriented x's 4; Lungs clear on room air; Pt states pain is tolerable with ordered medication; Tolerating Low sodium diet with fluid restriction at this time; Fluids/medication infusing as ordered into ULE; Pt is oriented to her own ability and demonstrates a steady gait; Ambulates to the restroom indep at this time and denies any difficulty. Plan to infuse blood; Will continue to monitor.
[2017-06-20] MEDS: CEROVITE ADV FORMULA TAB PO SCH (08:56)
[2017-06-20] MEDS: LANSOPRAZOLE SOLUTAB 15 MG GT SCH (08:56)
[2017-06-20] MEDS: RIFAXIMIN TAB 550 MG TAB PO SCH (08:56)
[2017-06-20] MEDS: CHOLECALCIFEROL 400 INTER.UNIT TAB PO SCH (08:56)
[2017-06-20] MEDS: MoRPHine SULFATE 2 MG/ML CARP IV PRN (08:56)
[2017-06-20] MEDS: CIPROFLOXACIN 500 MG TAB PO SCH (08:56)
[2017-06-20] MEDS: MIDODRINE 10 MG TAB PO SCH (08:57)
[2017-06-20] MEDS: LACTULOSE SYRUP 10 GM/15 ML BTL 473 ML PO SCH ×2 (08:58→12:18)
[2017-06-20] MEDS ORDERED: SPIRONOLACTONE 25 MG TAB PO SCH (09:00)
[2017-06-20] MEDS ORDERED: FUROSEMIDE INJ 40 MG in SYRINGE 0 ML IV SCH (10:00)
--- NOTE | 2017-06-20 10:06 | NUR ---
While removing section of silk tape to prevent tubing from kinking on LAC site, less than 1mm skin tear occurred. Dressed with vaseline gauze and paper tape.
--- NOTE | 2017-06-20 12:10 | NUR ---
A NOTE: Pt blood transfusion complete. Will continue to monitor.
--- NOTE | 2017-06-20 13:59 | NUR ---
A NOTE: Pt is requesting (2) copies of her medical records from Mar 2017-NOW. RN assisted pt in filling out release of information. Spoke to Cristel in Medical Records department who stated that she would watch for the fax and that once complete the records will be mailed to the patient as per the patients request. executive secretary social welfare assisted in faxing the request, Confirmation of delivery printed at 1402; The copy of the request as well as the confirmation of delivery was given to the patient for her records per her request.
[2017-06-20] MEDS: LORAZEPAM 0.5 MG TAB PO PRN (14:06)
--- NOTE | 2017-06-20 14:38 | Discharge Instructions ---
Discharge Instructions Date of Service Jun 20, 2017. Admission Reason for Admission: End Stage Liver Disease Discharge Discharge Diagnosis / Problem: CHRONIC LIVER DISEASE /ASCITIES /ACUTE RENAL FAILURE RESOLVED/ANEMIA Discharge Goals Goal(s): Decrease discomfort, Improve function, Increase independence, Improve disease control, Diagnostic testing, Therapeutic intervention Activity Recommendations Activity Limitations: resume your previous activity Shower/Bathe: no limitations . Instructions / Follow-Up Instructions / Follow-Up HOSPITAL FOLLOW UP : 06/25/2017 11:20 AM Stef Hylton DO General Internal Medicine [facility] LAB WORK : BASIC METABOLIC PANEL /COMPLETE BLOOD COUNT ON 06/25/2017 GASTROENTEROLOGY FOLLOW UP : 06/27/2017 3:00 PM Tan Funk MD Gastroenterology, [facility] KIDNEY SPECIALIST /NEPHROLOGY FOLLOW UP:07/03/2017 1:40 PM Richy Horan DO Nephrology, [facility] Current Hospital Diet Patient's current hospital diet: Low Sodium Diet (2gm Na), Renal Diet Discharge Diet Recommended Diet: Low Sodium Diet (2gm Na) Fluid Restriction: 1200 ml (5 cups) Pending Studies Studies pending at discharge: yes List of pending studies: LAB WORK : BASIC METABOLIC PANEL /COMPLETE BLOOD COUNT ON 06/25/2017 Medical Emergencies . Who to Call and When: Medical Emergencies: If at any time you feel your situation is an emergency, please call 911 immediately. . Non-Emergent Contact Non-Emergency issues call your: Primary Care Provider . . "Provider Documentation" section prepared by Nerissa Barton. . VTE Core Measure Inpt VTE Proph given/why not?: Joy Ellis, [facility]
--- NOTE | 2017-06-20 15:15 | Discharge Summary ---
Discharge Summary Date of Service Jun 20, 2017. Discharge Summary Admission Date: Jun 13, 2017 at 17:52 Discharge Date: Jun 20, 2017 Discharge Disposition: Home Principal Diagnosis: CHRONIC LIVER DISEASE /ASCITES /ACUTE RENAL FAILURE RESOLVED/ANEMIA Procedures: ULTRASOUND GUIDED PARACENTESIS Consultations: Nephrology -[facility] gastroenterology -[facility] Medication Reconciliation New Medications: Furosemide (Lasix) 40 Mg Tab 40 MG PO BID for 30 Days, #60 TAB 3 Refills take the AM dose of Lasix at least 6 hrs after the aldactone dose Ciprofloxacin (Ciprofloxacin HCl) 500 Mg Tab 500 MG PO DAILY for 30 Days, #30 TAB 3 Refills Lactulose (Chronulac) 10 Gm/15 Ml Syrp 15 GM PO QID for 30 Days, #2700 ML 4 Refills Midodrine (Midodrine HCl) 10 Mg Tab 15 MG PO BID for 30 Days, #90 TAB 3 Refills Spironolactone (Spironolactone) 25 Mg Tab 25 MG PO QAM for 30 Days, #30 TAB 3 Refills Continued Medications: Cholecalciferol (D3 High Potency) 400 Unit Tab 1 TAB PO BID Folic Acid (Folic Acid) 1 Mg Tab 1 MG PO QAM for 30 Days, #30 TAB Lorazepam (Ativan) 0.5 Mg Tab 0.5 MG PO BID PRN for Anxiety Multivitamins/Minerals (Mvi With Minerals) Tab 1 TAB PO DAILY for 30 Days, TAB 2 Refills Oxycodone HCl (Oxycodone HCl) 5 Mg Tab 5 MG PO Q6 PRN for Pain for 5 Days, #20 TAB Pantoprazole (Protonix) 40 Mg Tab 40 MG PO BID Rifaximin (Xifaxan) 550 Mg Tab 550 MG PO BID for 30 Days, #60 TAB 2 Refills Thiamine HCl (Vitamin B-1) 100 Mg Tab 100 MG PO Q24H, #30 TAB 1 Refill Discontinued Medications: Lactulose (Chronulac) 10 Gm/15 Ml Syrp 15 ML PO TID Midodrine (Midodrine HCl) 10 Mg Tab 10 MG PO BID Spironolactone (Spironolactone) 100 Mg Tab 150 MG PO DAILY Referrals At Discharge Follow up Referrals: [facility] Weigher Referral - 05/27/18 with Tan Funk M.D. [employer] Referral - 07/03/17 with Richy Horan DO Physician Referral - 06/25/17 with Stef Hylton D.O. Admission Information HPI (per Admitting provider): DATE OF ADMISSION: 06/13/2017 PRIMARY CARE PHYSICIAN: Stef Hylton DO. CHIEF COMPLAINT: Increasing weight with increasing ascites and shortness of breath with wheezing. HISTORY OF PRESENT COMPLAINT: She is a 52-year-old female with significant past medical history of alcoholic cirrhosis with esophageal varices, history of recurrent ascites, hepatic encephalopathy, depression, GERD, iron deficiency anemia, hyponatremia. Apparently has been complaining of increasing shortness of breath with wheezing for the last few days. She also has tense ascites associated with it and it has been difficult for her to move around with fluid overload. She was also noticed to have increasing BUN and creatinine recently on a blood test and that creatinine went up from 1.2-2.2. From that point, she was advised to come to the hospital for further evaluation and evaluated by nephrology and also GI to rule out any SBP. She does have shortness of breath on exertion and she is generally weak and lethargic, but she denies to have any chest pain, any palpitation. She does have shortness of breath on exertion. She has abdominal discomfort with tense ascites and also she has ongoing swelling of the legs. She denies to have any fever, chills or rigors. She denies any problem with urine and her bowel has been moving about 3 times a day with lactulose. PAST MEDICAL HISTORY: Significant for alcoholic cirrhosis with esophageal varices, history of ascites, history of hepatic encephalopathy, depression, GERD, iron deficiency anemia, hyperlipidemia. PAST SURGICAL HISTORY: Significant for delivery, ligation of the oviduct, and upper endoscopy quite a few times which showed esophageal varices secondary to portal hypertension and gastropathy. SOCIAL HISTORY: She is . She lives with her . She has 5 children. She used to use alcohol but no more. She does not smoke and she has been reasonably ambulant. FAMILY HISTORY: Significant that paternal grandmother had breast cancer. Mother at the age of 75 from a stroke. Father at the age of 49 with cause unknown. REVIEW OF SYSTEMS: All other systems reviewed are unremarkable except for those mentioned in history of present complaint. ALLERGIES: NKDA. MEDICATIONS: As an outpatient, she has been taking oxycodone 5/325 one tablet every 8 hours as needed, spironolactone 150 mg daily, lorazepam 0.5 mg tablet 2 times daily as needed, midodrine 2.5 mg tablet daily, torsemide 80 mg 2 times daily, rifaximin 550 mg 1 tablet 2 times daily, folic acid 1 mg daily, cholecalciferol 80 international units daily, ammonium lactate as directed, lactulose 30 grams 3 times daily, thiamine 100 mg daily, multivitamin 1 tablet daily, Protonix 40 mg daily, and albuterol HFA inhaler 4 puffs q.i.d. as needed. Physical Exam (per Admitting): PHYSICAL EXAMINATION: GENERAL: On examination on the medical floor, she was having moderate distress at rest with shortness of breath. VITAL SIGNS: Temperature 36.6, pulse is 77, blood pressure 109/60, saturation 98% on room air. HEENT: Unremarkable. NECK: Supple. No JVD, no bruit. CHEST: Decreased breath sounds with occasional wheezing mostly anteriorly and minimal crackles at the bases. HEART: S1, S2 regular, no murmur. ABDOMEN: Distended and tender moderate amount of ascites clinically. EXTREMITIES: 2+ edema bilaterally. Peripheral pulses were not palpable. MUSCULOSKELETAL: Did not show any acute arthritis. CENTRAL NERVOUS SYSTEM: She is alert, awake, and oriented x3. She is generally weak, but no focal sensory or motor deficit appreciated. Hospital Course no complain of discomfort, no dizzy spell or lightheadedness no fever or chills eager to be discharged home renal function remains stable Hb dropped form 7.2-> 6.9 no evidence of GI bleed ordered for 1 Unit or PRBC transfusion ( pt had multiple PRBC tx in past admissions) plan is to discharge home after PRBC tx if remains clinically stable PHYSICAL EXAM : Exam: General-chronically ill appearing , jaundiced Eyes-icteric sclera ENT-moist oral mucosa /multiple spider nevi present on lips , mostly Neck-no JVD , no thyromegaly , trachea midline Lungs-clear to auscultate , no wheeze or rales Heart-regular S1/S2 Abdomen-+ distention , + ascites , non tender , bowel sound active Extremities-generalized petechial rash , swenson erythema , deeply icteric skin , spider nevi-stigmata of chronic liver disease present Neuro-AAO x3, no focal neurological deficit , no Asterixis Last 8 Hrs Date Time Temp Pulse Resp B/P (MAP) Pulse Ox O2 Delivery O2 Flow Rate FiO2 06/20/17 14:43 36.6 68 18 96 Room Air 06/20/17 11:00 36.6 68 18 111/55 96 06/20/17 10:30 36.8 70 18 111/56 97 06/20/17 10:15 36.8 71 18 113/62 (79) 96 Room Air 06/20/17 09:54 36.8 72 18 103/53 97 0.0 06/20/17 08:30 Room Air 06/20/17 07:51 37.0 77 18 94/54 (67) 92 Room Air HEPATIC CIRRHOSIS/ALCOHOLIC LIVER DISEASE : H/o portal HTN with bleeding varices s/p banding. Presented with abdominal distention /ascites Has been getting paracentesis every 2 weeks or so with 5-7L ascites removal. Not a TIPS candidate due to high MELD 30 S/P thoracentesis done on 06/14 where 6.5 L ascites fluid removed Schedule to get u/s guided paracentesis this morning Spironolactone on hold due to elevated creatine-TRACY Fluid restriction to 1.2 L and 2g Na restriction pt is given IV 20 mg BID Lasix and albumin -to preserve intravascular vol while diuresing pt is continued on Rifampin/Midodrine/Lactulose Added Ciprofloxacin usp prophylaxis for SBP High risk for infection given recurrent paracentesis GI consulted, following closely , appreciate input pt underwent Paracenteses with removal of 4.8 L serosanguineous ascitic fluid tolerated the Procedure well will repeat BMP today shows stable renal function pt will be discharged on Ciprofloxacin 500 mg daily Lasix 40 mg PO daily Aldactone dose reduced to 25 mg daily ( was on 150 mg daily ) Midodrine dose adjusted 15 mg BID ( was on 10 mg BID ) follow up appointment scheduled with GI Dr Funk on 06/27/17 HYPONATREMIA Improved Possible due to vol overload for decompensated cirrhosis Na level improved cont Fluid restriction 1.2 L daily Nephrology on board-appreciate consult TRACY on CKD stage 3 resolved Creatine on admission 3.17 Possible related to hepatorenal-Baseline Cr 1-1.2 Creatine improved to 1.6-> 1.2 _. 1.1 -> 1.0 Spironolactone reduced on lower dose 25 mg daily ( was on 150 mg daily ) Nephrology following repeat BMP on 05/25/18 avoid NSAID's /contrast studies pt is scheduled to follow up with Dr Horan on 07/03/2017 HX OF ETOH ABUSE Reports abstinence since November Pt is counselled to Continue strict ETOH abstinence GERD Protonix BID ANEMIA OF CHRONIC DISEASE : Hbg on admission 8.3 No evidence of GI bleed Hbg dropped form 7.2 to 6.9 today no evidence of GI bleed pt received 1 unit of PRBC transfusion repeat CBC on 06/25/17 GERD Protonix BID Right Shoulder Fracture s/p fall Continue wearing sling Continue pain control DVT PROPHYLAXIS ambulate SCDs CODE STATUS Full Code DISPOSITION : stable to be discharged home today Consultants: Nephrology gastro Total time spent on discharge = 50 mins This includes examination of the patient, discharge planning, medication reconciliation, and communication with other providers. Discharge Instructions Discharge Instructions Date of Service Jun 20, 2017. Admission Reason for Admission: End Stage Liver Disease Discharge Discharge Diagnosis / Problem: CHRONIC LIVER DISEASE /ASCITES /ACUTE RENAL FAILURE RESOLVED/ANEMIA Discharge Goals Goal(s): Decrease discomfort, Improve function, Increase independence, Improve disease control, Diagnostic testing, Therapeutic intervention Activity Recommendations Activity Limitations: resume your previous activity Shower/Bathe: no limitations . Instructions / Follow-Up Instructions / Follow-Up HOSPITAL FOLLOW UP : 06/25/2017 11:20 AM Stef Hylton DO General Internal Medicine [facility] LAB WORK : BASIC METABOLIC PANEL /COMPLETE BLOOD COUNT ON 06/25/2017 GASTROENTEROLOGY FOLLOW UP : 06/27/2017 3:00 PM Tan Funk MD Gastroenterology, [facility] KIDNEY SPECIALIST /NEPHROLOGY FOLLOW UP:07/03/2017 1:40 PM Richy Horan DO Nephrology, [facility] Current Hospital Diet Patient's current hospital diet: Low Sodium Diet (2gm Na), Renal Diet Discharge Diet Recommended Diet: Low Sodium Diet (2gm Na) Fluid Restriction: 1200 ml (5 cups) Pending Studies Studies pending at discharge: yes List of pending studies: LAB WORK : BASIC METABOLIC PANEL /COMPLETE BLOOD COUNT ON 06/25/2017 Medical Emergencies . Who to Call and When: Medical Emergencies: If at any time you feel your situation is an emergency, please call 911 immediately. . Non-Emergent Contact Non-Emergency issues call your: Primary Care Provider . . "Provider Documentation" section prepared by Nerissa Barton. . VTE Core Measure Inpt VTE Proph given/why not?: Joy Ellis, SCD's Additional Copies To Stef Hylton D.O. Gaslightwala, Irphan E., M.D.
--- NOTE | 2017-06-20 15:35 | NUR ---
A: Pt being discharged to home. A+O x 4, family here to provide transportation. Prior shift nurse completed discharge paperwork and gave pt lab work script. This nurse removed pt's 2 IV sites, dressings C/D/I. Pt provided discharge instructions and verbalized understanding of information. Pt taken to entrance via wheelchair.
[2017-07-26] MEDS ORDERED: SPIR50TA2 PO (11:48)
[2017-08-26] MEDS ORDERED: TRAM-10 PO (12:12)
[2017-09-09] MEDS ORDERED: POTA-639 PO (08:00)
[2017-09-24] MEDS ORDERED: LACT10SO3 PO (18:05)
[2017-09-24] MEDS ORDERED: THIA100T10 PO (18:08)
== END 2017-06-20 15:37 | disposition home or self-care (01) | DRG 682 ==
LOC: C.2T 17:52 → C.MS2W 06-18 09:44 → ENRESERV 06-18 10:08
PROVIDERS: ADMIT Internal Medicine; ATTEND Hospitalist
PROC: 0W9G3ZX Drainage of Peritoneal Cavity, Percutaneous Approach, Diagnostic (ICD-10-PCS; principal; 2017-06-14)
PROC: 0W9G3ZZ Drainage of Peritoneal Cavity, Percutaneous Approach (ICD-10-PCS; 2017-06-20)
DX: N17.9 Acute kidney failure, unspecified (principal); K76.7 Hepatorenal syndrome; E87.1 Hypo-osmolality and hyponatremia; J90 Pleural effusion, not elsewhere classified; K70.31 Alcoholic cirrhosis of liver with ascites; N18.3 Chronic kidney disease, stage 3 (moderate); K21.9 Gastro-esophageal reflux disease without esophagitis; E78.5 Hyperlipidemia, unspecified; D63.8 Anemia in other chronic diseases classified elsewhere; F32.9 Major depressive disorder, single episode, unspecified; Z79.899 Other long term (current) drug therapy; Z87.891 Personal history of nicotine dependence

== ENCOUNTER → 2017-06-13 | Outpatient (CLI) | payer BC ==
[~2017-06-13] MED LIST changes: +CPR500 PO; -DMD20 PO; +FURO40TA3 PO; -POTA20TA16 PO; +PRMT10 PO; +SPRN100 PO
[2017-06-13 14:27] LABS: BLOOD UREA NITROGEN 36 mg/dl (7-18); BUN/CREATININE RATIO 11.4 (10-20); CALCIUM 9.2 mg/dl (8.5-10.1); CARBON DIOXIDE 28 mmol/L (21-32); CHLORIDE 86 mmol/L (98-107); CREATININE 3.14 mg/dl (0.60-1.20); GLUCOSE 96 mg/dl (70-99); POTASSIUM 4.6 mmol/L (3.5-5.1); SODIUM 121 mmol/L (136-145)
== END | disposition home or self-care (01) ==
LOC: C.LAB 13:30
PROVIDERS: ATTEND Internal Medicine Gastroenterology
DX: N28.9 Disorder of kidney and ureter, unspecified (principal); K70.31 Alcoholic cirrhosis of liver with ascites

== ENCOUNTER 2017-07-30 11:41 | Inpatient (IN) | payer BC ==
[~2017-07-30] VITALS: Ht 152.4 cm; Wt 66.6 kg
[~2017-07-30 11:41] MED LIST changes: -CHOL400T22 PO; +CPR500 PO; +FURO40TA3 PO; -LACT10SO53 PO; +LCTS240 PO; +PRMT10 PO; -PRMT25 PO; +SPIR50TA2 PO; -SPRN100 PO; -THIA100T27 PO; +THM100 PO
[2017-07-30 15:50] VITALS: BP 102/57; PULSE 76; TEMP 36.6; O2SAT 100; Ht 152.4 cm; Wt 66.6 kg
[2017-07-30 16:00] VITALS: BP 102/57; PULSE 76; TEMP 36.6; O2SAT 100
[2017-07-30] MEDS ORDERED: ALBUMIN HUMAN 25% 12.5 GM/50 ML VIAL IV ONE (17:45)
[2017-07-30] MEDS ORDERED: FUROSEMIDE INJ 40 MG in SYRINGE 0 ML IV ONE (17:45)
[2017-07-30 17:50] LABS: HEMATOCRIT 27.9 % (37-47); HEMOGLOBIN 9.8 g/dL (12.0-16.0); MEAN CELL VOLUME 99.6 fL (80-100); MEAN CORPUSCULAR HGB CONC 35.1 g/dl (32-36); MEAN PLATELET VOLUME 8.9 fL (7.4-10.4); PLATELET COUNT 213 K/uL (130-400); RED CELL DISTRIBUTION WIDTH CV 14.4 % (11.5-14.5); RED CELL DISTRIBUTION WIDTH SD 53.3 fL (36.4-46.3); WHITE BLOOD COUNT 8.63 K/uL (4.8-10.8)
[2017-07-30 18:02] LABS: INR 1.4 (0.9-1.1); PTT PATIENT 39.4 SECONDS (21.0-31.0)
[2017-07-30 18:22] LABS: ALBUMIN 3.1 gm/dl (3.4-5.0); CALCIUM 8.7 mg/dl (8.5-10.1); CREATININE 1.52 mg/dl (0.60-1.20); PHOSPHORUS 3.6 mg/dl (2.5-4.9); POTASSIUM 4.8 mmol/L (3.5-5.1); TOTAL PROTEIN 6.4 gm/dl (6.4-8.2)
[2017-07-30] MEDS: SPIRONOLACTONE 100 MG TAB PO SCH (18:31)
--- NOTE | 2017-07-30 19:04 | DIAGNOSTIC IMAGING REPORT ---
CHEST ONE VIEW PORTABLE HISTORY: 52 years-old Female r/o CHF hyponatremia and cirrhosis with concern for congestive heart failure COMPARISON: Chest radiograph 06/19/2017 TECHNIQUE: Portable AP view of the chest FINDINGS: Cardiac silhouette appears mildly enlarged. Unchanged moderate left pleural effusion with left basilar opacities right lung is generally clear. No pneumothorax or overt pulmonary edema. Subacute appearing right humeral neck fracture redemonstrated. Bones appear mildly demineralized. IMPRESSION: 1. Unchanged moderate left pleural effusion with probable left basilar atelectasis. 2. Stable alignment of the subacute appearing right humeral neck fracture. The above report was generated using voice recognition software. It may contain grammatical, syntax or spelling errors. Electronically signed by: Miguel Benitez M.D. 07/30/2017 7:02 PM Dictated Date/Time: 07/30/2017 7:00 PM
[2017-07-30 19:16] VITALS: BP 93/46; PULSE 89; TEMP 36.6; O2SAT 97
--- NOTE | 2017-07-30 19:21 | HISTORY & PHYSICAL EXAMINATION ---
DATE OF ADMISSION: 07/30/2017 PRIMARY CARE PHYSICIAN: Stef Hylton DO CHIEF COMPLAINT: The patient was sent in with abnormal labs with complaints of shakiness and unsteadiness. HISTORY OF PRESENT COMPLAINT: She is a 52-year-old female with significant past medical history of alcoholic cirrhosis with recurrent encephalopathy, esophageal varices, depression; apparently was noted to have low sodium and high creatinine on a recent blood test on 07/28/2017. Her sodium was 129 on 07/17/2017, that went down to 123. The patient has been complaining of increasing leg swelling, weakness and also unsteadiness. She has had a fall in May and broke her right humerus, but she did not have any more fall since then, but she is unsteady on her feet. She did not have any chest pain, shortness breath, palpitation. She did complain of some swelling of the leg, but no more swelling of the abdomen. She has a leaky paracentesis site, and in that area she has a bag placed in and she has to empty the bag quite a few times recently, and she is getting generally very weak and lethargic. No fever, chills or rigors. No cough or phlegm. Denies to have any problem with urine and/or bowel habit. PAST MEDICAL HISTORY: Significant for alcoholic cirrhosis with recurrent encephalopathy and recurrent paracentesis; hypotension; iron deficiency anemia; electrolyte imbalance, mainly with hyponatremia; depression; GERD; and history of esophageal varices. PAST SURGICAL HISTORY: delivery, ligation of oviduct, and endoscopies in the past. FAMILY HISTORY: Paternal grandmother had breast cancer. Father had unknown disease. Mother had a stroke. SOCIAL HISTORY: , smokes about 1/4 pack per day, no alcohol, and she has been reasonably ambulant. ALLERGIES: She has no allergy. MEDICATIONS: She has been on furosemide 40 mg b.i.d., folic acid 1 mg daily, lactulose 15 grams 4 times daily, lorazepam 0.5 mg b.i.d. as needed, midodrine 10 mg tablet 15 mg b.i.d., multivitamin 1 tablet daily, oxycodone 5 mg q. 6 hourly p.r.n., Protonix 40 mg b.i.d., Xifaxan 550 mg b.i.d., spironolactone 50 mg b.i.d., and thiamine 100 mg daily. She also uses albuterol HFA 2 puffs 4 times daily as needed, and potassium chloride 20 mEq daily. REVIEW OF SYSTEMS: Other systems reviewed are unremarkable except as mentioned in the history of present complaint. PHYSICAL EXAMINATION: GENERAL: On examination in the medical floor, she was not having any acute distress. She was not jaundiced. She denies to have any acute symptoms. VITAL SIGNS: Temperature 36.6, pulse is 86, blood pressure 102/57, saturation 100% on room air. HEENT: Unremarkable. NECK: Supple. No JVD, no bruit. CHEST: Occasional crackles at the bases with decreased breath sounds at the bases. HEART: S1, S2 regular. No murmur. ABDOMEN: Soft, minimally distended. The peritoneal leaking site has a colostomy bag, and the bag was empty when I examined patient. Bowel sounds present. EXTREMITIES: She has 2+ edema bilaterally. MUSCULOSKELETAL SYSTEM: Did not show any acute arthritis involving any joint. CENTRAL NERVOUS SYSTEM: She was alert, awake, oriented x3. Generally weak, but no focal sensory and/or motor deficit appreciated. LABORATORY DATA: Noted from outpatient clinic at [facility], BUN 18, creatinine 1.4 that has been increased. Sodium 123, decreased from 129 on 07/17/2017; potassium 4.1; chloride 87; carbon dioxide 23; glucose 94; calcium 8.8; albumin was 3.5; alkaline phosphatase 199. ALT 20, AST 53, bilirubin was 5.4, protein 5.9. Other labs are pending in the hospital. IMPRESSION AND PLAN: 1. Hyponatremia in the setting of cirrhosis. The patient will be admitted to telemetry unit. She will be monitored in the unit. She was started with intravenous Lasix, albumin, low sodium diet, and monitor sodium while she is in the hospital. 2. Cirrhosis of the liver with recurrent ascites. She does not have any ascites at this time, as because she has a leakiness from the prior peritoneal paracentesis site and she has a bag placed there. She does have edema. Again, she will get Lasix to take care of the fluid accumulation. GI evaluation while in the hospital. 3. Hypotension. Blood pressure seems to be on the lower side of normal. Continue with midodrine. 4. Gastroesophageal reflux disease. Continue with proton pump inhibitor twice a day. 5. Depression. No acute symptoms at this time. Continue with her current medication. 6. Acute kidney injury with chronic kidney disease. Again, admitted to telemetry unit, nephrology evaluation. Albumin and Lasix as per nephrology, and Aldactone will be continued as well. We will monitor kidney function while in the hospital. 7. Deep venous thrombosis prophylaxis. We will await for the platelet counts, and then if there is no contraindication, we can start with heparin subQ. 8. Code status - she will be a full code. In my clinical assessment, the beneficiary meets criteria as per CMS for 2 midnight stay in the hospital. CAROL
[2017-07-30] MEDS: PANTOprazole SOD 40 MG TAB PO SCH (20:39)
[2017-07-30] MEDS: OXYCODONE HCL IR 5 MG TAB (IMMEDIATE RELEASE) PO PRN (20:39)
[2017-07-30] MEDS: LACTULOSE SYRUP 20 GM/30 ML UDC PO SCH (20:39)
[2017-07-30] MEDS: LORAZEPAM 0.5 MG TAB PO PRN (20:39)
[2017-07-30] MEDS: RIFAXIMIN TAB 550 MG TAB PO SCH (20:39)
[2017-07-30] MEDS: HEPARIN SOD 5000 UNIT/0.5 ML CARP SQ SCH (20:42)
[2017-07-30 23:40] VITALS: BP 104/51; PULSE 101; TEMP 37.2; O2SAT 97
[2017-07-31] VITALS (9 sets, daily range): BP systolic 75–97; BP diastolic 30–54; PULSE 80–112; TEMP 36.8–37.4; O2SAT 94–100
[2017-07-31] MEDS: TROLAMINE SALICYLATE 10% CRM 255 APPLN/85 GM TUBE EXT PRN ×2 (00:39→05:12)
[2017-07-31] MEDS: OXYCODONE HCL IR 5 MG TAB (IMMEDIATE RELEASE) PO PRN ×4 (03:07→21:16)
[2017-07-31] MEDS: HEPARIN SOD 5000 UNIT/0.5 ML CARP SQ SCH ×3 (05:17→21:04)
[2017-07-31] MEDS: MIDODRINE 10 MG TAB PO SCH ×2 (06:12→12:42)
[2017-07-31] MEDS: LORAZEPAM 0.5 MG TAB PO PRN (07:41)
[2017-07-31] MEDS: FUROSEMIDE INJ 40 MG in SYRINGE 0 ML IV SCH ×2 (07:42→17:11)
[2017-07-31] MEDS: RIFAXIMIN TAB 550 MG TAB PO SCH ×2 (07:42→21:02)
[2017-07-31] MEDS: PANTOprazole SOD 40 MG TAB PO SCH ×2 (07:42→21:02)
[2017-07-31] MEDS: SPIRONOLACTONE 100 MG TAB PO SCH ×2 (07:43→17:11)
[2017-07-31] MEDS: CEROVITE ADV FORMULA TAB PO SCH (07:43)
[2017-07-31 07:44] LABS: CALCIUM 8.1 mg/dl (8.5-10.1); CREATININE 1.85 mg/dl (0.60-1.20); POTASSIUM 4.8 mmol/L (3.5-5.1)
[2017-07-31] MEDS: LACTULOSE SYRUP 20 GM/30 ML UDC PO SCH ×4 (07:44→21:02)
[2017-07-31] MEDS ORDERED: ALBUMIN HUMAN 25% 12.5 GM/50 ML VIAL IV SCH (09:00)
[2017-07-31] MEDS: THIAMINE HCL 100 MG TAB PO SCH (09:13)
--- NOTE | 2017-07-31 10:25 | NEPHROLOGY CONSULTATION ---
DATE OF CONSULTATION: 07/31/2017 ATTENDING OF RECORD: Mervin Martell MD REASON FOR CONSULTATION: Hyponatremia and volume overload. HISTORY OF PRESENT ILLNESS: This is a 52-year-old female with history of alcoholic liver cirrhosis who has had multiple admissions for hyponatremia, volume overload and worsening kidney function. The patient's last paracentesis was in the beginning of July and continued to leak afterwards requiring a drainage bag to be placed, has been slowing down, fills up the bag about once a day and drains it at night. The patient is still undergoing workup to be listed for a liver transplant, still has pulmonary function tests that still need to be done, also continues to wear a sling for her right shoulder, which she hurt and has been on pain medications for. The patient has become more fluid overloaded since last discharge with significant edema in the lower extremities, fluid in the lungs with pleural effusions and worsening sodium levels. The patient is started on IV diuretics in house as well as albumin. Sodium level was 122 last night, 121 this morning. Creatinine has gone from 1.52 up to 1.85, albumin of 3.1. Urine osmol and urine random sodium is pending. INR is 1.4. T-bili is elevated at 4.6, AST mildly elevated at 63, alkaline phosphatase 223. PAST MEDICAL HISTORY/PAST SURGICAL HISTORY: Alcoholic cirrhosis, history of hyponatremia, anxiety, depression. FAMILY HISTORY: Significant for heart disease. SOCIAL HISTORY: No longer smokes, no more alcohol, no drugs. REVIEW OF SYSTEMS: Positive right shoulder pain from previous injury and continues to worsen. Positive abdominal distention, although leaking from previous paracentesis and has a drainage bag intact. Positive swelling in the legs. Positive shortness of breath with exertion. No chest pain, no nausea, no vomiting, no rash, no itching, no fevers or chills. All other review of systems otherwise negative. CURRENT MEDICATIONS: Folic acid 1 mg daily, multivitamin daily, thiamine 100 mg daily, Lasix 40 mg IV b.i.d., albumin 25 grams IV b.i.d., midodrine 15 mg p.o. b.i.d., heparin 5000 units subQ q. 8, lactulose 15 grams p.o. q.i.d., Protonix 40 mg p.o. b.i.d., rifaximin 550 mg p.o. b.i.d., spironolactone 50 mg p.o. b.i.d. PHYSICAL EXAMINATION VITAL SIGNS: Temperature 36.8, pulse 100, respiratory rate is 20, blood pressures 70s/30s. Satting 100% on room air. GENERAL: Awake, alert, oriented x3. Positive jaundice. EYES: Positive scleral icterus. ENT: Moist mucous membranes. NECK: Supple. PULMONARY: Decreased breath sounds at the bases. CARDIAC: Tachy. ABDOMEN: Soft with a drainage bag in place. EXTREMITIES: +2 to 3 pitting edema. NEUROLOGICALLY: Nonfocal. DERMATOLOGIC: Jaundiced. LABORATORY STUDIES: White count is 8.6, H&H 9.8 and 27.9, platelet count is 213. Sodium level is 121, potassium 4.8, chloride is 91, bicarbonate is 22, BUN is 27, creatinine is 1.85, glucose is 86, calcium is 8.1, albumin is 3.1 with a T-bili of 4.6. Urine osmol and urine random sodium pending. Chest x-ray showed moderate left pleural effusion with probable left basilar atelectasis. ASSESSMENT AND PLAN: 1. Hyponatremia in the setting of volume overload/cirrhosis, currently on fluid restriction as well as Lasix 40 mg IV b.i.d. and spironolactone 50 mg p.o. b.i.d. Continue the current diuretics. The patient appears to be 30-40 pounds fluid overloaded and we will like to gradually diurese the patient as blood pressure and patient tolerates. 2. Acute kidney injury. Creatinine tends to be varying quite a bit. During last admission in May, creatinine went up to 3.33 and then upon discharge, it was 1. On this admission, creatinine is 1.52 to 1.85. We will prophylactically treat her for presumed hepatorenal, already on midodrine as an outpatient and continue the albumin and the IV diuretics. We would like to increase the albumin dose to 100 grams today and we will follow up on the urine sodium studies. I greatly appreciate gastroenterology help as well as primary hospitalist's help in the management of this complicated unfortunate patient. CAROL
[2017-07-31] MEDS ORDERED: NURSING VERBAL MED ORDER ONE (11:00)
[2017-07-31] MEDS ORDERED: LIDOCAINE HCL 1% 20 ML VIAL SQ PRN (11:15)
--- NOTE | 2017-07-31 11:15 | DIAGNOSTIC IMAGING REPORT ---
LIMITED ULTRASOUND FOR ASCITES EVALUATION CLINICAL HISTORY: Ascites COMPARISON STUDY: July 26, 2017 FINDINGS: There is low volume 4 quadrant ascites, markedly diminished in volume when compared the prior study dated July 26, 2017. IMPRESSION: Low volume 4 quadrant ascites, significantly diminished in volume from the preceding study Electronically signed by: Manuel Lou M.D. 07/31/2017 11:14 AM Dictated Date/Time: 07/31/2017 11:12 AM
--- NOTE | 2017-07-31 12:03 | Gastrointestinal Consultation ---
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 She was sent to ED by Dr. Horan (Nephrology) for worsening hyponatremia and symptoms of weakness. Outpt labs showed Na of 123. She's complaining of increased leg swelling, weakness and unsteadiness. Noted on labs no signs of leukocytosis, H/H at baseline mild anemia, INR 1.4, Na 121, Cr 1.5 -> 1.8. In the past she's had issues w TRACY, not HRS, Urine Na 15. UOP still adequate. She is hypotensive BP 70s/40s, currently being placed on Midodrine, Octreotide and Albumin per Nephrology. Pt's last ETOH intake was November 2016. She admits to be compliant w her diuretics , at home dose of Spironolactone 50mg BID, Lasix 80mg BID. Was also on low salt diet. 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 Not a candidate for TIPS due to high MELD >30 w increased bilirubin. She's getting evaluated for possible liver transplant. She had her last paracentesis on 07/26/17 w 6L fluid removal. Having issues of ascites fluid leakage at the paracentesis site since the tap and had an ostomy bag placed over it since the procedure for leak control per pt's report. Used to be that she had to empty the bag several times a night. Volume output now significantly lowered and total of 200ml out yesterday. Past Medical/Surgical History Medical Problems: (1) Abdominal pain Status: Acute (2) Abdominal pain, left upper quadrant Status: Acute (3) Acute renal failure (ARF) Status: Acute (4) Alcoholic cirrhosis of liver with ascites Status: Acute (5) Anasarca Status: Acute (6) Ascites Status: Acute (7) Cirrhosis Status: Acute (8) Closed fracture of right proximal humerus Status: Acute (9) Diarrhea Status: Acute (10) Elevated blood pressure reading Status: Acute (11) Fall from ladder Status: Acute (12) GI bleed Status: Acute (13) Hypoalbuminemia Status: Acute (14) Hypokalemia Status: Acute (15) Hyponatremia Status: Acute (16) Hyponatremia Status: Acute (17) Hyponatremia Status: Acute (18) Liver failure Status: Acute (19) Syncope Status: Acute Past Medical History: See above, also depression, GERD Past Surgical History: C section, tubal ligation. Family History FH: CAD (coronary artery disease) FATHER Stroke MOTHER Social History Smoking Status: Current Every Day Smoker Alcohol Use: heavy (history ) Drug Use: none, other Marital Status: Housing Status: lives with family Occupation Status: disabled Allergies Coded Allergies: No Known Allergies (Verified , 07/26/17) Current Medications Home Meds and Scripts Medications Dose Route/Sig Max Daily Dose Days Date Category Dose Instructions Aldactone (Spironolactone) 50 Mg Tab 50 Mg PO BID 07/26/17 Reported Lasix (Furosemide) 40 Mg Tab 40 Mg PO BID 30 06/20/17 Rx take the AM dose of Lasix at least 6 hrs after the aldactone dose Chronulac (Lactulose) 10 Gm/15 Ml Syrp 15 Gm PO QID 30 06/18/17 Rx Midodrine HCl (Midodrine) 10 Mg Tab 15 Mg PO BID 30 06/18/17 Rx Ciprofloxacin HCl (Ciprofloxacin) 500 Mg Tab 500 Mg PO DAILY 30 06/18/17 Rx Oxycodone HCl 5 Mg Tab 5 Mg PO Q6 PRN 5 05/16/17 Rx Xifaxan (Rifaximin) 550 Mg Tab 550 Mg PO BID 30 03/15/17 Rx Folic Acid 1 Mg Tab 1 Mg PO QAM 30 03/01/17 Rx Mvi With Minerals (Multivitamins/Minerals) Tab 1 Tab PO DAILY 30 02/11/17 Rx Vitamin B-1 (Thiamine HCl) 100 Mg Tab 100 Mg PO Q24H 02/11/17 Rx Protonix (Pantoprazole Sodium) 40 Mg Tab 40 Mg PO BID 11/19/12 Reported Ativan (Lorazepam) 0.5 Mg Tab 0.5 Mg PO BID PRN 02/16/12 Reported Review of Systems Constitutional: No fever, No chills Respiratory: No cough, No shortness of breath Cardiac: No chest pain Abdomen: + see HPI (c/o paracentesis site leak since last tap on 07/26 ), No pain , No nausea, No vomiting Skin: No rash, No itch Physical Exam Date Time Temp Pulse Resp B/P (MAP) Pulse Ox O2 Delivery O2 Flow Rate FiO2 07/31/17 08:00 100 Room Air 07/31/17 07:43 36.8 100 20 75/32 (46) 95 Room Air 77/39 (52) 07/31/17 05:56 76/36 (49) 07/31/17 04:00 Room Air 07/31/17 03:38 37.2 112 18 82/40 (54) 94 Room Air 07/30/17 23:59 Room Air 07/30/17 23:40 37.2 101 19 104/51 (68) 97 Room Air 07/30/17 20:00 Room Air 07/30/17 19:16 36.6 89 21 93/46 (62) 97 Room Air 89 07/30/17 16:00 36.6 76 18 102/57 (72) 100 Room Air 07/30/17 16:00 100 Room Air 07/30/17 15:50 36.6 76 18 102/57 100 Room Air General Appearance: WD/WN, no apparent distress Eyes: PERRL, EOMI, + pertinent finding (mild icteric sclera) Neck: supple, no JVD, trachea midline Respiratory/Chest: normal breath sounds, no respiratory distress, no accessory muscle use Cardiovascular: regular rate, rhythm, no gallop, no murmur Abdomen: normal bowel sounds, non tender, soft, + distended (mild ) Extremities: no calf tenderness, + swelling (non pitting leg swelling) Neurologic/Psych: alert, normal mood/affect, oriented x 3 Skin: + jaundice (mild), + pertinent finding (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, neck ) Laboratory Results Last 24 Hours Test 07/30/17 17:29 07/31/17 06:34 07/31/17 09:01 07/31/17 09:02 White Blood Count 8.63 K/uL Red Blood Count 2.80 M/uL Hemoglobin 9.8 g/dL Hematocrit 27.9 % Mean Corpuscular Volume 99.6 fL Mean Corpuscular Hemoglobin 35.0 pg Mean Corpuscular Hemoglobin Concent 35.1 g/dl RDW Standard Deviation 53.3 fL RDW Coefficient of Variation 14.4 % Platelet Count 213 K/uL Mean Platelet Volume 8.9 fL Prothrombin Time 14.8 SECONDS Prothromb Time International Ratio 1.4 Activated Partial Thromboplast Time 39.4 SECONDS Partial Thromboplastin Ratio 1.5 Sodium Level 122 mmol/L 121 mmol/L Potassium Level 4.8 mmol/L 4.8 mmol/L Chloride Level 90 mmol/L 91 mmol/L Carbon Dioxide Level 22 mmol/L 22 mmol/L Anion Gap 10.0 mmol/L 8.0 mmol/L Blood Urea Nitrogen 25 mg/dl 27 mg/dl Creatinine 1.52 mg/dl 1.85 mg/dl Est Creatinine Clear Calc Drug Dose 41.3 ml/min 34.0 ml/min Estimated GFR () 44.6 35.2 Estimated GFR (Non- 38.5 30.3 BUN/Creatinine Ratio 16.3 14.8 Random Glucose 79 mg/dl 86 mg/dl Calcium Level 8.7 mg/dl 8.1 mg/dl Phosphorus Level 3.6 mg/dl Magnesium Level 1.8 mg/dl Total Bilirubin 4.6 mg/dl Direct Bilirubin 3.3 mg/dl Aspartate Amino Transf (AST/SGOT) 63 U/L Alanine Aminotransferase (ALT/SGPT) 25 U/L Alkaline Phosphatase 223 U/L Total Protein 6.4 gm/dl Albumin 3.1 gm/dl Impression Patient is a 52 year old female w hx of ETOH cirrhosis, complicated by hx of variceal hemorrhage s/p banding, portal HTN, GAVE, refractory ascites, pleural effusion (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 MELD 29. She is admitted for worsening hyponatremia and weakness symptoms. Currently having also persistent leakage on post paracentesis site on LLQ area, managed by ostomy bag Plan - Continue current Lactulose and Xifaxan. - Diuretics Lasix 40mg IV BID, Spironolactone 50mg BID. Pt needs to be on 2g Na diet, 1.2L fluid restriction. Monitor renal function and electrolytes - Discussed case with Nephrology: going to be added on Albumin, Octreotide, and continued on Midodrine given low BP - Abd u/s for ascites volume check -> low volume. Last paracentesis on 07/26 w 6L ascites removal. Ostomy bag removed. Paracentesis site numbed w 2ml Lidocaine 1% , and sutured with #3 suture, single stitch. Eventually will need weekly paracentesis. She's not a candidate for TIPS due to high MELD w elevated bilirubin. - Avoid thoracentesis for pleural effusion given likely related to hepatic hydrothorax, will manage ascites and effusion w diuretics, paracentesis. I performed a history and physical examination of the patient, including specifically on physical exam - abdomen is soft.I have discussed the patient's management with Jeanie. Please refer to the HOSPICE NURSE PRACTITIONER's note for the documented findings and plan of care. Patient with decompensated Liver cirrhosis, Ascites and hepatic hydrothorax, Hx of HE. She is directly admitted for monitored diuresis by Renal team. Has Hyponatremia and deemed poor candidate for TIPS. Would continue Midodrine, Albumin and Octreotide to optimize her kidney function and diurese as we can and then arrange for LVP on a weekly basis. Avoid chest tube or catheters.
[2017-07-31] MEDS: OCTREOTIDE ACETATE 100 MCG/ML VIAL SQ SCH ×2 (12:41→18:35)
[2017-07-31] MEDS: ALBUMIN HUMAN 25% 12.5 GM/50 ML VIAL IV SCH ×2 (12:41→17:12)
--- NOTE | 2017-07-31 14:27 | Progress Note ---
Internal Med Progress Note Date of Service: Jul 31, 2017. Provider Documentation: SUBJECTIVE: The patient was seen and examined Complains of some pain in Right shoulder on moving Generally weak and lethargic OBJECTIVE: Vital Signs-as noted below Exam: General-No distress at rest Eyes-normal ENT-normal Neck-supple Lungs-Clear to auscultate bilaterally Heart-Regular Abdomen-Soft ,mildly tender Clinically minimal ascites Extremities-2+ edema bilaterally Neuro-AAOx3 Generally weak Lab data as noted below. ASSESSMENT & PLAN: Hyponatremia in the setting of cirrhosis. Complains of weakness and tiredness She was started with intravenous Lasix, albumin, low sodium diet, a Nephrology consulted Monitor PRP Cirrhosis of the liver with recurrent ascites. She does not have any ascites at this time, as because she has a leaking of Ascitic Fluid from the prior peritoneal paracentesis site GI consulted Hypotension. Blood pressure seems to be on the lower side of normal. Continue with midodrine. Right Shoulder Pain S/P Fracture of the right shoulder CXR;;Stable alignment of the subacute appearing right humeral neck fracture Continue pain med No need to do any X-rays now Gastroesophageal reflux disease. Continue with proton pump inhibitor twice a day. Depression. No acute symptoms at this time. Continue with her current medication. Acute kidney injury with chronic kidney disease. Albumin and Lasix as per nephrology, and Aldactone will be continued as well. We will monitor kidney function Nephrology evaluation Deep venous thrombosis prophylaxis. SQ Heparin Code status - she will be a full code. Vital Signs: Date Time Temp Pulse Resp B/P (MAP) Pulse Ox O2 Delivery O2 Flow Rate FiO2 07/31/17 12:00 100 Room Air 07/31/17 12:00 98 20 100 Room Air 07/31/17 11:41 36.8 88 20 83/39 (54) 98 Room Air 07/31/17 08:00 100 Room Air 07/31/17 07:43 36.8 100 20 75/32 (46) 95 Room Air 77/39 (52) 07/31/17 05:56 76/36 (49) 07/31/17 04:00 Room Air 07/31/17 03:38 37.2 112 18 82/40 (54) 94 Room Air 07/30/17 23:59 Room Air 07/30/17 23:40 37.2 101 19 104/51 (68) 97 Room Air 07/30/17 20:00 Room Air 07/30/17 19:16 36.6 89 21 93/46 (62) 97 Room Air 89 07/30/17 16:00 36.6 76 18 102/57 (72) 100 Room Air 07/30/17 16:00 100 Room Air 07/30/17 15:50 36.6 76 18 102/57 100 Room Air Lab Results: Results Past 24 Hours Test 07/30/17 17:29 07/31/17 06:34 07/31/17 09:01 07/31/17 09:02 Range/Units White Blood Count 8.63 4.8-10.8 K/uL Red Blood Count 2.80 4.2-5.4 M/uL Hemoglobin 9.8 12.0-16.0 g/dL Hematocrit 27.9 37-47 % Mean Corpuscular Volume 99.6 80-100 fL Mean Corpuscular Hemoglobin 35.0 25-34 pg Mean Corpuscular Hemoglobin Concent 35.1 32-36 g/dl RDW Standard Deviation 53.3 36.4-46.3 fL RDW Coefficient of Variation 14.4 11.5-14.5 % Platelet Count 213 130-400 K/uL Mean Platelet Volume 8.9 7.4-10.4 fL Prothrombin Time 14.8 9.0-12.0 SECONDS Prothromb Time International Ratio 1.4 0.9-1.1 Activated Partial Thromboplast Time 39.4 21.0-31.0 SECONDS Partial Thromboplastin Ratio 1.5 Sodium Level 122 121 136-145 mmol/L Potassium Level 4.8 4.8 3.5-5.1 mmol/L Chloride Level 90 91 98-107 mmol/L Carbon Dioxide Level 22 22 21-32 mmol/L Anion Gap 10.0 8.0 3-11 mmol/L Blood Urea Nitrogen 25 27 7-18 mg/dl Creatinine 1.52 1.85 0.60-1.20 mg/dl Est Creatinine Clear Calc Drug Dose 41.3 34.0 ml/min Estimated GFR () 44.6 35.2 Estimated GFR (Non- 38.5 30.3 BUN/Creatinine Ratio 16.3 14.8 10-20 Random Glucose 79 86 70-99 mg/dl Calcium Level 8.7 8.1 8.5-10.1 mg/dl Phosphorus Level 3.6 2.5-4.9 mg/dl Magnesium Level 1.8 1.8-2.4 mg/dl Total Bilirubin 4.6 0.2-1 mg/dl Direct Bilirubin 3.3 0-0.2 mg/dl Aspartate Amino Transf (AST/SGOT) 63 15-37 U/L Alanine Aminotransferase (ALT/SGPT) 25 12-78 U/L Alkaline Phosphatase 223 45-117 U/L Total Protein 6.4 6.4-8.2 gm/dl Albumin 3.1 3.4-5.0 gm/dl
[2017-07-31] MEDS: ONDANSETRON INJ 2 MG/ML 2 ML VIAL IV PRN (21:30)
[2017-08-01] VITALS (11 sets, daily range): BP systolic 88–120; BP diastolic 35–60; PULSE 82–98; TEMP 36.6–37.5; O2SAT 92–100
[2017-08-01] MEDS: ALBUMIN HUMAN 25% 12.5 GM/50 ML VIAL IV SCH ×4 (00:33→18:26)
[2017-08-01] MEDS: PROMETHAZINE HCL 25 MG TAB PO PRN ×3 (00:44→17:05)
[2017-08-01] MEDS: OCTREOTIDE ACETATE 100 MCG/ML VIAL SQ SCH ×3 (01:09→18:27)
[2017-08-01] MEDS: OXYCODONE HCL IR 5 MG TAB (IMMEDIATE RELEASE) PO PRN ×2 (03:38→17:06)
[2017-08-01] MEDS: HEPARIN SOD 5000 UNIT/0.5 ML CARP SQ SCH ×3 (06:21→22:00)
[2017-08-01] MEDS: SPIRONOLACTONE 100 MG TAB PO SCH ×2 (07:59→17:06)
[2017-08-01] MEDS: LORAZEPAM 0.5 MG TAB PO PRN (08:00)
[2017-08-01] MEDS: RIFAXIMIN TAB 550 MG TAB PO SCH ×2 (08:03→21:00)
[2017-08-01] MEDS: FUROSEMIDE INJ 40 MG in SYRINGE 0 ML IV SCH ×2 (08:03→17:06)
[2017-08-01] MEDS: MIDODRINE 10 MG TAB PO SCH ×2 (08:04→14:15)
[2017-08-01] MEDS: LACTULOSE SYRUP 20 GM/30 ML UDC PO SCH ×4 (08:04→22:30)
[2017-08-01] MEDS: PANTOprazole SOD 40 MG TAB PO SCH ×2 (08:04→21:00)
[2017-08-01] MEDS: CEROVITE ADV FORMULA TAB PO SCH (08:05)
[2017-08-01] MEDS: THIAMINE HCL 100 MG TAB PO SCH (08:05)
[2017-08-01 08:37] LABS: CALCIUM 8.2 mg/dl (8.5-10.1); CREATININE 1.92 mg/dl (0.60-1.20); POTASSIUM 4.6 mmol/L (3.5-5.1)
--- NOTE | 2017-08-01 09:09 | Gastroenterology Progress Note ---
Progress Note Date of Service: Aug 01, 2017 Subjective Pt evaluation today including: conversation w/ patient, physical exam, chart review, lab review, review of inpatient medication list Pt reports mild nausea, but tolerating food fine. Denies any abd pain. Sutured paracentesis leak site dry. BM this AM w/o rectal bleeding. Review of Systems Constitutional: No fever, No chills Respiratory: No cough Cardiac: No chest pain Abdomen: + nausea, No pain, No vomiting Medications Current Inpatient Medications Medications (Trade) Dose Ordered Sig/Betty Route Start Time Stop Time Status Last Admin Dose Admin Ondansetron HCl (Zofran Inj) 4 mg Q6H PRN IV 07/30/17 17:15 08/29/17 17:14 07/31/17 21:30 4 MG Folic Acid (Folvite Tab) 1 mg QAM PO 07/31/17 09:00 08/30/17 08:59 08/01/17 08:05 1 MG Lactulose (Chronulac Syrup) 15 gm QID PO 07/30/17 21:00 08/29/17 20:59 08/01/17 08:04 15 GM Lorazepam (Ativan Tab) 0.5 mg BID PRN PO 07/30/17 17:15 08/29/17 17:14 08/01/17 08:00 0.5 MG Midodrine (Proamatine Tab) 15 mg BID@0800,1400 PO 07/31/17 08:00 08/30/17 07:59 08/01/17 08:04 15 MG Multivitamins/ Minerals (Multivitamin W/ Minerals Tab) 1 tab DAILY PO 07/31/17 09:00 08/30/17 08:59 08/01/17 08:05 1 TAB Oxycodone HCl (Roxicodone Immediate Rel Tab) 5 mg Q6 PRN PO 07/30/17 17:15 08/13/17 17:14 08/01/17 03:38 5 MG Pantoprazole Sodium (Protonix Tab) 40 mg BID PO 07/30/17 21:00 08/29/17 20:59 08/01/17 08:04 40 MG Rifaximin (Xifaxan Tab) 550 mg BID PO 07/30/17 21:00 08/29/17 20:59 08/01/17 08:03 550 MG Spironolactone (Aldactone Tab) 50 mg BID17 PO 07/30/17 17:30 08/29/17 17:29 08/01/17 07:59 50 MG Thiamine HCl (Vitamin B-1 Tab) 100 mg DAILY PO 07/31/17 09:00 08/30/17 08:59 08/01/17 08:05 100 MG Furosemide 40 mg/ Syringe 4 ml @ 4 mls/min BID17 IV 07/31/17 09:00 08/30/17 08:59 08/01/17 08:03 4 MLS/MIN Heparin Sodium (Porcine) (Heparin Sq 5000 Unit/0.5ml) 5,000 unit Q8 SQ 07/30/17 22:00 08/29/17 21:59 08/01/17 06:21 5,000 UNIT Trolamine Salicylate (Myoflex Cream) 1 appln QID PRN EXT 07/31/17 00:15 08/30/17 00:14 07/31/17 05:12 1 APPLN Octreotide Acetate (Sandostatin Inj) 100 mcg Q8H SQ 07/31/17 10:00 08/30/17 09:59 08/01/17 01:09 100 MCG Albumin Human (Albumin 25%) 25 gm Q6 IV 07/31/17 12:00 08/03/17 08:59 08/01/17 06:21 25 GM Lidocaine HCl (Xylocaine 1% Inj (Local)) 20 ml ONE PRN SQ 07/31/17 11:15 Promethazine HCl (Phenergan Tab) 25 mg Q6H PRN PO 08/01/17 00:00 08/31/17 00:00 08/01/17 08:00 25 MG Objective Vital Signs Date Time Temp Pulse Resp B/P (MAP) Pulse Ox O2 Delivery O2 Flow Rate FiO2 08/01/17 08:00 100 Room Air 08/01/17 08:00 98 08/01/17 06:54 37.4 89 20 91/35 (53) 94 Room Air 08/01/17 04:00 Room Air 08/01/17 03:38 37.5 90 18 88/42 (57) 92 Room Air 08/01/17 01:22 84 88/46 (60) 07/31/17 23:59 Room Air 07/31/17 23:35 37.4 80 18 77/30 (46) 95 Room Air 07/31/17 20:00 Room Air 07/31/17 19:44 37.3 84 19 97/40 (59) 94 Room Air 07/31/17 16:00 Room Air 07/31/17 15:06 36.9 83 19 96/54 (68) 97 Room Air 07/31/17 12:00 100 Room Air 07/31/17 12:00 98 20 100 Room Air 07/31/17 11:41 36.8 88 20 83/39 (54) 98 Room Air Physical Exam General Appearance: WD/WN, no apparent distress Eyes: EOMI Neck: supple, no JVD, trachea midline Respiratory/Chest: normal breath sounds, no respiratory distress, no accessory muscle use Cardiovascular: regular rate, rhythm, no gallop, no murmur Abdomen: normal bowel sounds, non tender, + distended (mild), + pertinent finding (RLQ dressing dry ) Extremities: + swelling (bilateral LE) Neurologic/Psych: alert, normal mood/affect, oriented x 3 Skin: + jaundice, + pertinent finding (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, neck ) Laboratory Results Last 24 Hours Test 07/31/17 21:00 2 07:04 Urine Osmolality 230 mOms/kg Urine Random Sodium 13 mEq/L Sodium Level 123 mmol/L Potassium Level 4.6 mmol/L Chloride Level 93 mmol/L Carbon Dioxide Level 20 mmol/L Anion Gap 10.0 mmol/L Blood Urea Nitrogen 27 mg/dl Creatinine 1.92 mg/dl Est Creatinine Clear Calc Drug Dose 30.7 ml/min Estimated GFR () 33.6 Estimated GFR (Non- 29.0 BUN/Creatinine Ratio 14.2 Random Glucose 83 mg/dl Calcium Level 8.2 mg/dl Magnesium Level 2.0 mg/dl Assessment and Plan Patient is a 52 year old female w hx of ETOH cirrhosis, complicated by hx of variceal hemorrhage s/p banding, portal HTN, GAVE, refractory ascites, pleural effusion (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 MELD 29. She is admitted for worsening hyponatremia and weakness symptoms. Currently having also persistent leakage on post paracentesis site on LLQ area, managed by ostomy bag -> resolved after site sutured. Na 123, Cr up to 1.92. UOP 1L, Urine Na 13. Plans - Continue current Lactulose and Xifaxan. - Diuretics Lasix 40mg IV BID, Spironolactone 50mg BID. Pt needs to be on 2g Na diet, 1.2L fluid restriction. Monitor renal function and electrolytes - Discussed case with Nephrology: continue Albumin, Octreotide, and Midodrine given low BP - Abd u/s for ascites volume check -> low volume. Last paracentesis on 07/26 w 6L ascites removal. Ostomy bag removed. Paracentesis site numbed w 2ml Lidocaine 1% , and sutured with #3 suture, single stitch. Eventually will need weekly paracentesis which we have arranged in outpt setting. She's not a candidate for TIPS due to high MELD w elevated bilirubin. - Avoid thoracentesis for pleural effusion given likely related to hepatic hydrothorax, will manage ascites and effusion w diuretics, paracentesis. I performed a history and physical examination of the patient. I have discussed the patient's case, impression and plan with Jeanie ATKINS. Her note reflects my findings and plan. Continue to follow electrolytes and titrate diuretics accordingly. Chris Rico MD
--- NOTE | 2017-08-01 15:26 | Progress Note ---
Internal Med Progress Note Date of Service: Aug 01, 2017. Provider Documentation: SUBJECTIVE: The patient was seen and examined Complains of some pain in Right shoulder on moving Generally weak and lethargic Clinically a little better today OBJECTIVE: Vital Signs-as noted below Exam: General-No distress at rest Eyes-normal ENT-normal Neck-supple Lungs-Clear to auscultate bilaterally Heart-Regular Abdomen-Soft ,mildly tender Clinically minimal ascites Extremities-2+ edema bilaterally Neuro-AAOx3 Generally weak Lab data as noted below. ASSESSMENT & PLAN: Hyponatremia in the setting of cirrhosis. Complains of weakness and tiredness She was started with intravenous Lasix, albumin, low sodium diet, a Nephrology consulted Started on Octreotide Monitor PRP-Sodium remains low at 123 Cirrhosis of the liver with recurrent ascites. She does not have any ascites at this time, as because she has a leaking of Ascitic Fluid from the prior peritoneal paracentesis site GI consulted Abdominal wound is sutured -no more leaking of Peritoneal fluid Hypotension. Blood pressure seems to be on the lower side of normal. Continue with midodrine. Right Shoulder Pain S/P Fracture of the right shoulder CXR;;Stable alignment of the subacute appearing right humeral neck fracture Continue pain med No need to do any X-rays now Gastroesophageal reflux disease. Continue with proton pump inhibitor twice a day. Depression. No acute symptoms at this time. Continue with her current medication. Acute kidney injury with chronic kidney disease. Albumin and Lasix as per nephrology, and Aldactone will be continued as well. We will monitor kidney function Nephrology evaluation-appreciate Input Deep venous thrombosis prophylaxis. SQ Heparin Code status - she will be a full code. Vital Signs: Date Time Temp Pulse Resp B/P (MAP) Pulse Ox O2 Delivery O2 Flow Rate FiO2 08/01/17 12:06 36.9 85 20 110/51 (70) 96 Room Air 08/01/17 12:00 100 Room Air 08/01/17 08:00 100 Room Air 08/01/17 08:00 98 08/01/17 06:54 37.4 89 20 91/35 (53) 94 Room Air 08/01/17 04:00 Room Air 08/01/17 03:38 37.5 90 18 88/42 (57) 92 Room Air 08/01/17 01:22 84 88/46 (60) 07/31/17 23:59 Room Air 07/31/17 23:35 37.4 80 18 77/30 (46) 95 Room Air 07/31/17 20:00 Room Air 07/31/17 19:44 37.3 84 19 97/40 (59) 94 Room Air 07/31/17 16:00 Room Air Lab Results: Results Past 24 Hours Test 07/31/17 21:00 08/01/17 07:04 Range/Units Urine Osmolality 230 500-800 mOms/kg Urine Random Sodium 13 mEq/L Sodium Level 123 136-145 mmol/L Potassium Level 4.6 3.5-5.1 mmol/L Chloride Level 93 98-107 mmol/L Carbon Dioxide Level 20 21-32 mmol/L Anion Gap 10.0 3-11 mmol/L Blood Urea Nitrogen 27 7-18 mg/dl Creatinine 1.92 0.60-1.20 mg/dl Est Creatinine Clear Calc Drug Dose 30.7 ml/min Estimated GFR () 33.6 Estimated GFR (Non- 29.0 BUN/Creatinine Ratio 14.2 10-20 Random Glucose 83 70-99 mg/dl Calcium Level 8.2 8.5-10.1 mg/dl Magnesium Level 2.0 1.8-2.4 mg/dl
--- NOTE | 2017-08-01 15:39 | Nephrology Progress Note ---
Nephrology Progress Note Date of Service: Aug 01, 2017. Subjective 52 yo female seen for tracy/hyponatremia in setting of cirrhosis and volume overload. on albumin/lasix/spironolactone/midodrine/octreotide. drainage bag removed from abdomen. Objective Date Time Temp Pulse Resp B/P (MAP) Pulse Ox O2 Delivery O2 Flow Rate FiO2 08/01/17 12:06 36.9 85 20 110/51 (70) 96 Room Air 08/01/17 12:00 100 Room Air 08/01/17 08:00 100 Room Air 08/01/17 08:00 98 08/01/17 06:54 37.4 89 20 91/35 (53) 94 Room Air 08/01/17 04:00 Room Air 08/01/17 03:38 37.5 90 18 88/42 (57) 92 Room Air 08/01/17 01:22 84 88/46 (60) 07/31/17 23:59 Room Air 07/31/17 23:35 37.4 80 18 77/30 (46) 95 Room Air 07/31/17 20:00 Room Air 07/31/17 19:44 37.3 84 19 97/40 (59) 94 Room Air 07/31/17 16:00 Room Air Physical Exam: General-aaox3, jaundiced Eyes-+scleral icterus ENT-mmm Neck-supple Lungs-cta Heart-rrr Abdomen-bs+, soft/mildly distended Extremities-+2 edema Neuro-nonfocal Current Inpatient Medications Medications (Trade) Dose Ordered Sig/Betty Route Start Time Stop Time Status Last Admin Dose Admin Ondansetron HCl (Zofran Inj) 4 mg Q6H PRN IV 07/30/17 17:15 08/29/17 17:14 07/31/17 21:30 4 MG Folic Acid (Folvite Tab) 1 mg QAM PO 07/31/17 09:00 08/30/17 08:59 08/01/17 08:05 1 MG Lactulose (Chronulac Syrup) 15 gm QID PO 07/30/17 21:00 08/29/17 20:59 08/01/17 12:08 15 GM Lorazepam (Ativan Tab) 0.5 mg BID PRN PO 07/30/17 17:15 08/29/17 17:14 08/01/17 08:00 0.5 MG Midodrine (Proamatine Tab) 15 mg BID@0800,1400 PO 07/31/17 08:00 08/30/17 07:59 08/01/17 14:15 15 MG Multivitamins/ Minerals (Multivitamin W/ Minerals Tab) 1 tab DAILY PO 07/31/17 09:00 08/30/17 08:59 08/01/17 08:05 1 TAB Oxycodone HCl (Roxicodone Immediate Rel Tab) 5 mg Q6 PRN PO 07/30/17 17:15 08/13/17 17:14 08/01/17 03:38 5 MG Pantoprazole Sodium (Protonix Tab) 40 mg BID PO 07/30/17 21:00 08/29/17 20:59 08/01/17 08:04 40 MG Rifaximin (Xifaxan Tab) 550 mg BID PO 07/30/17 21:00 08/29/17 20:59 08/01/17 08:03 550 MG Spironolactone (Aldactone Tab) 50 mg BID17 PO 07/30/17 17:30 08/29/17 17:29 08/01/17 07:59 50 MG Thiamine HCl (Vitamin B-1 Tab) 100 mg DAILY PO 07/31/17 09:00 08/30/17 08:59 08/01/17 08:05 100 MG Furosemide 40 mg/ Syringe 4 ml @ 4 mls/min BID17 IV 07/31/17 09:00 08/30/17 08:59 08/01/17 08:03 4 MLS/MIN Heparin Sodium (Porcine) (Heparin Sq 5000 Unit/0.5ml) 5,000 unit Q8 SQ 07/30/17 22:00 08/29/17 21:59 08/01/17 14:18 5,000 UNIT Trolamine Salicylate (Myoflex Cream) 1 appln QID PRN EXT 07/31/17 00:15 08/30/17 00:14 07/31/17 05:12 1 APPLN Octreotide Acetate (Sandostatin Inj) 100 mcg Q8H SQ 07/31/17 10:00 08/30/17 09:59 08/01/17 10:36 100 MCG Albumin Human (Albumin 25%) 25 gm Q6 IV 07/31/17 12:00 08/03/17 08:59 08/01/17 12:08 25 GM Lidocaine HCl (Xylocaine 1% Inj (Local)) 20 ml ONE PRN SQ 07/31/17 11:15 Promethazine HCl (Phenergan Tab) 25 mg Q6H PRN PO 08/01/17 00:00 08/31/17 00:00 08/01/17 08:00 25 MG Last 24 Hours Test 07/31/17 21:00 08/01/17 07:04 Urine Osmolality 230 mOms/kg Urine Random Sodium 13 mEq/L Sodium Level 123 mmol/L Potassium Level 4.6 mmol/L Chloride Level 93 mmol/L Carbon Dioxide Level 20 mmol/L Anion Gap 10.0 mmol/L Blood Urea Nitrogen 27 mg/dl Creatinine 1.92 mg/dl Est Creatinine Clear Calc Drug Dose 30.7 ml/min Estimated GFR () 33.6 Estimated GFR (Non- 29.0 BUN/Creatinine Ratio 14.2 Random Glucose 83 mg/dl Calcium Level 8.2 mg/dl Magnesium Level 2.0 mg/dl Assessment & Plan hyponatremia-fluid restriction/lasix/spironolactone-sodium levels still low. sodium levels should eventually improve as we continue to diurese patient. TRACY-low sodium-on high dose albumin/midodrine/octreotide. hopefully creatinine eventually peaks and starts to trend down. unclear if this is pure hepatorenal syndrome or just third spacing with intravascular volume depletion. no changes to therapy.
[2017-08-01 23:12] LABS: BASO % 0.9 %; BASO ABS # 0.03 K/uL (0-0.2); EOS % 0.9 %; EOS ABS # 0.03 K/uL (0-0.5); HEMATOCRIT 22.9 % (37-47); HEMOGLOBIN 7.9 g/dL (12.0-16.0); IG# 0.01 K/uL (0.00-0.02); LYMPH % 12.7 %; LYMPH ABS # 0.42 K/uL (1.2-3.4); MEAN CELL VOLUME 99.1 fL (80-100); MEAN CORPUSCULAR HEMOGLOBIN 34.2 pg (25-34); MEAN CORPUSCULAR HGB CONC 34.5 g/dl (32-36); MONO % 12.7 %; MONO ABS # 0.42 K/uL (0.11-0.59); NEUT % 72.5 %; NEUT ABS # 2.41 K/uL (1.4-6.5); PLATELET COUNT 155 K/uL (130-400); RED CELL DISTRIBUTION WIDTH CV 14.3 % (11.5-14.5); RED CELL DISTRIBUTION WIDTH SD 50.9 fL (36.4-46.3); WHITE BLOOD COUNT 3.32 K/uL (4.8-10.8)
[2017-08-01 23:25] LABS: INR 1.6 (0.9-1.1)
[2017-08-01 23:37] LABS: ALBUMIN 3.9 gm/dl (3.4-5.0); ALKALINE PHOSPHATASE 135 U/L (45-117); ALT/SGPT 21 U/L (12-78); AST/SGOT 41 U/L (15-37); BLOOD UREA NITROGEN 23 mg/dl (7-18); CALCIUM 8.9 mg/dl (8.5-10.1); CARBON DIOXIDE 26 mmol/L (21-32); CREATININE 1.88 mg/dl (0.60-1.20); GLUCOSE 108 mg/dl (70-99); POTASSIUM 3.6 mmol/L (3.5-5.1); SODIUM 130 mmol/L (136-145); TOTAL PROTEIN 6.2 gm/dl (6.4-8.2)
[2017-08-02] VITALS (8 sets, daily range): BP systolic 101–129; BP diastolic 38–61; PULSE 80–104; TEMP 36.6–37.2; O2SAT 97–100
--- NOTE | 2017-08-02 00:25 | Progress Note ---
Progress Note Date of Service Aug 02, 2017. Progress Note Called by nurse this evening regarding this patient. She was very lethargic and difficult to arouse and then became delirious, taking off her clothes and trying to sit on her neighbor's bed. Labs reveal an elevated ammonia >200. She is on lactulose and did have a BM this evening. She is also on Rifaximin, however, I am uncertain if the nurse was able to give it in the setting of delirium. Currently her VSS and she is afebrile and resting comfortably in bed with a sitter at bedside. She is able to open her eyes and respond to me that she is not in pain and then goes to sleep again. SBP was considered, however, her abdomen is soft, nontender and she is afebrile. Narcotics and benzos were held as this may have been the inciting factor for earlier behavior on top of HE. Anemia is present but no signs of active bleeding. H/H in am. Will monitor closely and reorient as needed. DO Tera
[2017-08-02] MEDS: ALBUMIN HUMAN 25% 12.5 GM/50 ML VIAL IV SCH ×5 (01:09→23:40)
[2017-08-02] MEDS: ONDANSETRON INJ 2 MG/ML 2 ML VIAL IV PRN (01:09)
[2017-08-02] MEDS: OCTREOTIDE ACETATE 100 MCG/ML VIAL SQ SCH ×3 (01:10→17:52)
[2017-08-02] MEDS: HEPARIN SOD 5000 UNIT/0.5 ML CARP SQ SCH ×3 (05:25→23:21)
[2017-08-02] MEDS: LACTULOSE SYRUP 20 GM/30 ML UDC PO SCH (07:26)
--- NOTE | 2017-08-02 09:36 | Nephrology Progress Note ---
Nephrology Progress Note Date of Service: Aug 02, 2017. Subjective 52 yo female seen for tracy/hyponatremia in setting of cirrhosis and volume overload. on albumin/lasix/spironolactone/midodrine/octreotide. pts abdomen is becoming more distended. its tender to palpation. pt is confused and requiring a 1 to 1. ammonia levels are rising. GI is increasing the lactulose and planning for paracentesis to rule out sbp. Objective Date Time Temp Pulse Resp B/P (MAP) Pulse Ox O2 Delivery O2 Flow Rate FiO2 08/02/17 08:00 Room Air 08/02/17 07:17 37.0 97 20 101/38 (59) 99 Room Air 08/02/17 04:00 37.2 104 17 129/52 (77) 97 Room Air 08/02/17 04:00 100 Room Air 08/02/17 01:39 119/61 (80) 08/01/17 23:59 100 Room Air 08/01/17 23:24 36.8 92 16 120/60 (80) 96 Room Air 08/01/17 20:00 Room Air 08/01/17 19:03 36.8 90 17 91/45 (60) 98 Room Air 08/01/17 16:00 100 Room Air 08/01/17 15:11 36.6 82 19 92/47 (62) 96 Room Air 08/01/17 12:06 36.9 85 20 110/51 (70) 96 Room Air 08/01/17 12:00 100 Room Air Physical Exam: General-confused, jaundiced Eyes-+scleral icterus ENT-mmm Neck-supple Lungs-clear Heart-tachy Abdomen-bs+, distended/+ttp to right side Extremities-+1 edema Neuro-confused Current Inpatient Medications Medications (Trade) Dose Ordered Sig/Betty Route Start Time Stop Time Status Last Admin Dose Admin Ondansetron HCl (Zofran Inj) 4 mg Q6H PRN IV 07/30/17 17:15 08/29/17 17:14 08/02/17 01:09 4 MG Folic Acid (Folvite Tab) 1 mg QAM PO 07/31/17 09:00 08/30/17 08:59 08/01/17 08:05 1 MG Lactulose (Chronulac Syrup) 15 gm QID PO 07/30/17 21:00 08/29/17 20:59 08/02/17 07:26 15 GM Lorazepam (Ativan Tab) 0.5 mg BID PRN PO 07/30/17 17:15 08/29/17 17:14 Future Hold 08/01/17 08:00 0.5 MG Midodrine (Proamatine Tab) 15 mg BID@0800,1400 PO 07/31/17 08:00 08/30/17 07:59 08/01/17 14:15 15 MG Multivitamins/ Minerals (Multivitamin W/ Minerals Tab) 1 tab DAILY PO 07/31/17 09:00 08/30/17 08:59 08/01/17 08:05 1 TAB Oxycodone HCl (Roxicodone Immediate Rel Tab) 5 mg Q6 PRN PO 07/30/17 17:15 08/13/17 17:14 Future Hold 08/01/17 17:06 5 MG Pantoprazole Sodium (Protonix Tab) 40 mg BID PO 07/30/17 21:00 08/29/17 20:59 08/01/17 08:04 40 MG Rifaximin (Xifaxan Tab) 550 mg BID PO 07/30/17 21:00 08/29/17 20:59 08/01/17 08:03 550 MG Spironolactone (Aldactone Tab) 50 mg BID17 PO 07/30/17 17:30 08/29/17 17:29 08/01/17 17:06 50 MG Thiamine HCl (Vitamin B-1 Tab) 100 mg DAILY PO 07/31/17 09:00 08/30/17 08:59 08/01/17 08:05 100 MG Furosemide 40 mg/ Syringe 4 ml @ 4 mls/min BID17 IV 07/31/17 09:00 08/30/17 08:59 08/01/17 17:06 4 MLS/MIN Heparin Sodium (Porcine) (Heparin Sq 5000 Unit/0.5ml) 5,000 unit Q8 SQ 07/30/17 22:00 08/29/17 21:59 08/02/17 05:25 5,000 UNIT Trolamine Salicylate (Myoflex Cream) 1 appln QID PRN EXT 07/31/17 00:15 08/30/17 00:14 07/31/17 05:12 1 APPLN Octreotide Acetate (Sandostatin Inj) 100 mcg Q8H SQ 07/31/17 10:00 08/30/17 09:59 08/02/17 01:10 100 MCG Albumin Human (Albumin 25%) 25 gm Q6 IV 07/31/17 12:00 08/03/17 08:59 08/02/17 05:23 25 GM Lidocaine HCl (Xylocaine 1% Inj (Local)) 20 ml ONE PRN SQ 07/31/17 11:15 Promethazine HCl (Phenergan Tab) 25 mg Q6H PRN PO 08/01/17 00:00 08/31/17 00:00 08/01/17 17:05 25 MG Last 24 Hours Test 08/01/17 22:53 08/02/17 04:30 White Blood Count 3.32 K/uL Red Blood Count 2.31 M/uL Hemoglobin 7.9 g/dL Hematocrit 22.9 % Mean Corpuscular Volume 99.1 fL Mean Corpuscular Hemoglobin 34.2 pg Mean Corpuscular Hemoglobin Concent 34.5 g/dl Platelet Count 155 K/uL Mean Platelet Volume 9.0 fL Neutrophils (%) (Auto) 72.5 % Lymphocytes (%) (Auto) 12.7 % Monocytes (%) (Auto) 12.7 % Eosinophils (%) (Auto) 0.9 % Basophils (%) (Auto) 0.9 % Neutrophils # (Auto) 2.41 K/uL Lymphocytes # (Auto) 0.42 K/uL Monocytes # (Auto) 0.42 K/uL Eosinophils # (Auto) 0.03 K/uL Basophils # (Auto) 0.03 K/uL RDW Standard Deviation 50.9 fL RDW Coefficient of Variation 14.3 % Immature Granulocyte % (Auto) 0.3 % Immature Granulocyte # (Auto) 0.01 K/uL Poikilocytosis PRESENT Prothrombin Time 17.1 SECONDS Prothromb Time International Ratio 1.6 Sodium Level 130 mmol/L Potassium Level 3.6 mmol/L Chloride Level 96 mmol/L Carbon Dioxide Level 26 mmol/L Anion Gap 8.0 mmol/L Blood Urea Nitrogen 23 mg/dl Creatinine 1.88 mg/dl Est Creatinine Clear Calc Drug Dose 31.4 ml/min Estimated GFR () 34.5 Estimated GFR (Non- 29.8 BUN/Creatinine Ratio 12.3 Random Glucose 108 mg/dl Calcium Level 8.9 mg/dl Total Bilirubin 5.2 mg/dl Direct Bilirubin 2.6 mg/dl Aspartate Amino Transf (AST/SGOT) 41 U/L Alanine Aminotransferase (ALT/SGPT) 21 U/L Alkaline Phosphatase 135 U/L Ammonia 210.5 umol/L Troponin I < 0.015 ng/ml Total Protein 6.2 gm/dl Albumin 3.9 gm/dl Urine Color YELLOW Urine Appearance CLEAR Urine pH 6.5 Urine Specific [place] 1.006 Urine Protein NEG Urine Glucose (UA) NEG Urine Ketones NEG Urine Occult Blood 1+ Urine Nitrite NEG Urine Bilirubin NEG Urine Urobilinogen NEG Urine Leukocyte Esterase NEG Urine WBC (Auto) 1-5 /hpf Urine RBC (Auto) 0-4 /hpf Urine Hyaline Casts (Auto) 1-5 /lpf Urine Epithelial Cells (Auto) >30 /lpf Urine Bacteria (Auto) NEG Assessment & Plan hyponatremia-fluid restriction/lasix/spironolactone-sodium levels improved to 130. continue current treatment. confusion more likely from elevated ammonia levels as suppose to overcorrection of hyponatremia. TRACY--on albumin/midodrine/octreotide. creatinine stable. no role for dialysis. hopefully, once stabilized, creatinine will eventually improve back to baseline.
[2017-08-02] MEDS: RIFAXIMIN TAB 550 MG TAB PO SCH ×2 (09:38→20:18)
[2017-08-02] MEDS: FUROSEMIDE INJ 40 MG in SYRINGE 0 ML IV SCH ×2 (09:38→17:55)
[2017-08-02] MEDS: PANTOprazole SOD 40 MG TAB PO SCH ×2 (09:38→20:18)
[2017-08-02] MEDS: CEROVITE ADV FORMULA TAB PO SCH (09:39)
[2017-08-02] MEDS: THIAMINE HCL 100 MG TAB PO SCH (09:39)
[2017-08-02] MEDS: SPIRONOLACTONE 100 MG TAB PO SCH ×2 (09:39→17:53)
[2017-08-02] MEDS: MIDODRINE 10 MG TAB PO SCH ×2 (09:40→14:10)
--- NOTE | 2017-08-02 11:40 | DIAGNOSTIC IMAGING REPORT ---
PARACENTESIS ABDOMEN W/IMAGING CLINICAL HISTORY: 52 years-old Female with ascites. COMPARISON: Ultrasound 07/31/2017 PROCEDURE: The procedure was explained to the patient in the care including the benefits and possible risks/complications. The patient gave verbal understanding and written consent was obtained. A time-out was performed prior to the start of the procedure. The patient was placed on the ultrasound table in the supine position. Using ultrasound guidance, an appropriate procedure site in the left lower abdomen was marked. This area was then prepped and draped in the usual sterile fashion. Local anesthesia was achieved within 1% lidocaine. An 8-[place] centesis catheter was then inserted. Approximately 1.8 liters of clear, yellowish fluid was removed and sent to the lab for analysis. The catheter was removed and external pressure was held to achieve hemostasis. A sterile dressing was applied to the procedure site. The patient tolerated the procedure well without immediate complications. IMPRESSION: Successful ultrasound-guided paracentesis with removal of 1.8 L ascitic fluid. The above report was generated using voice recognition software. It may contain grammatical, syntax or spelling errors. Electronically signed by: Miguel Benitez M.D. 08/02/2017 11:39 AM Dictated Date/Time: 08/02/2017 11:37 AM
--- NOTE | 2017-08-02 12:11 | Gastroenterology Progress Note ---
Progress Note Date of Service: Aug 02, 2017 Subjective Pt evaluation today including: conversation w/ patient, physical exam, chart review, lab review, review of inpatient medication list Pt became more confused overnight. Ammonia level obtained and noted to be elevated at 200. This AM, she will respond to name called but kept on repeating "I'm cold". She has a bedside sitter. She doesn't want to eat. RN reports abd appears more distended. She managed to get pt to take some Lactulose PO, and pt was having BMs. I am unable to obtain ROS from pt Medications Current Inpatient Medications Medications (Trade) Dose Ordered Sig/Betty Route Start Time Stop Time Status Last Admin Dose Admin Ondansetron HCl (Zofran Inj) 4 mg Q6H PRN IV 07/30/17 17:15 08/29/17 17:14 08/02/17 01:09 4 MG Folic Acid (Folvite Tab) 1 mg QAM PO 07/31/17 09:00 08/30/17 08:59 08/02/17 09:39 1 MG Lorazepam (Ativan Tab) 0.5 mg BID PRN PO 07/30/17 17:15 08/29/17 17:14 Future Hold 08/01/17 08:00 0.5 MG Midodrine (Proamatine Tab) 15 mg BID@0800,1400 PO 07/31/17 08:00 08/30/17 07:59 08/02/17 09:40 15 MG Multivitamins/ Minerals (Multivitamin W/ Minerals Tab) 1 tab DAILY PO 07/31/17 09:00 08/30/17 08:59 08/02/17 09:39 1 TAB Oxycodone HCl (Roxicodone Immediate Rel Tab) 5 mg Q6 PRN PO 07/30/17 17:15 08/13/17 17:14 Future Hold 08/01/17 17:06 5 MG Pantoprazole Sodium (Protonix Tab) 40 mg BID PO 07/30/17 21:00 08/29/17 20:59 08/02/17 09:38 40 MG Rifaximin (Xifaxan Tab) 550 mg BID PO 07/30/17 21:00 08/29/17 20:59 08/02/17 09:38 550 MG Spironolactone (Aldactone Tab) 50 mg BID17 PO 07/30/17 17:30 08/29/17 17:29 08/02/17 09:39 50 MG Thiamine HCl (Vitamin B-1 Tab) 100 mg DAILY PO 07/31/17 09:00 08/30/17 08:59 08/02/17 09:39 100 MG Furosemide 40 mg/ Syringe 4 ml @ 4 mls/min BID17 IV 07/31/17 09:00 08/30/17 08:59 08/02/17 09:38 4 MLS/MIN Heparin Sodium (Porcine) (Heparin Sq 5000 Unit/0.5ml) 5,000 unit Q8 SQ 07/30/17 22:00 08/29/17 21:59 08/02/17 05:25 5,000 UNIT Trolamine Salicylate (Myoflex Cream) 1 appln QID PRN EXT 07/31/17 00:15 08/30/17 00:14 07/31/17 05:12 1 APPLN Octreotide Acetate (Sandostatin Inj) 100 mcg Q8H SQ 07/31/17 10:00 08/30/17 09:59 08/02/17 10:04 100 MCG Albumin Human (Albumin 25%) 25 gm Q6 IV 07/31/17 12:00 08/03/17 08:59 08/02/17 05:23 25 GM Lidocaine HCl (Xylocaine 1% Inj (Local)) 20 ml ONE PRN SQ 07/31/17 11:15 Promethazine HCl (Phenergan Tab) 25 mg Q6H PRN PO 08/01/17 00:00 08/31/17 00:00 08/01/17 17:05 25 MG Lactulose (Chronulac Syrup) 30 gm TID PO 08/02/17 14:00 08/29/17 20:59 Objective Vital Signs Date Time Temp Pulse Resp B/P (MAP) Pulse Ox O2 Delivery O2 Flow Rate FiO2 08/02/17 11:31 36.7 94 18 110/58 (75) 98 Room Air 08/02/17 08:00 Room Air 08/02/17 07:17 37.0 97 20 101/38 (59) 99 Room Air 08/02/17 04:00 37.2 104 17 129/52 (77) 97 Room Air 08/02/17 04:00 100 Room Air 08/02/17 01:39 119/61 (80) 08/01/17 23:59 100 Room Air 08/01/17 23:24 36.8 92 16 120/60 (80) 96 Room Air 08/01/17 20:00 Room Air 08/01/17 19:03 36.8 90 17 91/45 (60) 98 Room Air 08/01/17 16:00 100 Room Air 08/01/17 15:11 36.6 82 19 92/47 (62) 96 Room Air 08/01/17 12:06 36.9 85 20 110/51 (70) 96 Room Air Physical Exam General Appearance: + mild distress (confused) Respiratory/Chest: no respiratory distress, no accessory muscle use, + decreased breath sounds Cardiovascular: regular rate, rhythm, no gallop, no murmur Abdomen: non tender, soft, + distended Extremities: + swelling Neurologic/Psych: + disoriented Laboratory Results Last 24 Hours Test 08/01/17 22:53 08/02/17 04:30 08/02/17 09:34 White Blood Count 3.32 K/uL Red Blood Count 2.31 M/uL Hemoglobin 7.9 g/dL Hematocrit 22.9 % Mean Corpuscular Volume 99.1 fL Mean Corpuscular Hemoglobin 34.2 pg Mean Corpuscular Hemoglobin Concent 34.5 g/dl Platelet Count 155 K/uL Mean Platelet Volume 9.0 fL Neutrophils (%) (Auto) 72.5 % Lymphocytes (%) (Auto) 12.7 % Monocytes (%) (Auto) 12.7 % Eosinophils (%) (Auto) 0.9 % Basophils (%) (Auto) 0.9 % Neutrophils # (Auto) 2.41 K/uL Lymphocytes # (Auto) 0.42 K/uL Monocytes # (Auto) 0.42 K/uL Eosinophils # (Auto) 0.03 K/uL Basophils # (Auto) 0.03 K/uL RDW Standard Deviation 50.9 fL RDW Coefficient of Variation 14.3 % Immature Granulocyte % (Auto) 0.3 % Immature Granulocyte # (Auto) 0.01 K/uL Poikilocytosis PRESENT Prothrombin Time 17.1 SECONDS Prothromb Time International Ratio 1.6 Sodium Level 130 mmol/L Potassium Level 3.6 mmol/L Chloride Level 96 mmol/L Carbon Dioxide Level 26 mmol/L Anion Gap 8.0 mmol/L Blood Urea Nitrogen 23 mg/dl Creatinine 1.88 mg/dl Est Creatinine Clear Calc Drug Dose 31.4 ml/min Estimated GFR () 34.5 Estimated GFR (Non- 29.8 BUN/Creatinine Ratio 12.3 Random Glucose 108 mg/dl Calcium Level 8.9 mg/dl Total Bilirubin 5.2 mg/dl Direct Bilirubin 2.6 mg/dl Aspartate Amino Transf (AST/SGOT) 41 U/L Alanine Aminotransferase (ALT/SGPT) 21 U/L Alkaline Phosphatase 135 U/L Ammonia 210.5 umol/L Troponin I < 0.015 ng/ml Total Protein 6.2 gm/dl Albumin 3.9 gm/dl Urine Color YELLOW Urine Appearance CLEAR Urine pH 6.5 Urine Specific [place] 1.006 Urine Protein NEG Urine Glucose (UA) NEG Urine Ketones NEG Urine Occult Blood 1+ Urine Nitrite NEG Urine Bilirubin NEG Urine Urobilinogen NEG Urine Leukocyte Esterase NEG Urine WBC (Auto) 1-5 /hpf Urine RBC (Auto) 0-4 /hpf Urine Hyaline Casts (Auto) 1-5 /lpf Urine Epithelial Cells (Auto) >30 /lpf Urine Bacteria (Auto) NEG Assessment and Plan Patient is a 52 year old female w hx of ETOH cirrhosis, complicated by hx of variceal hemorrhage s/p banding, portal HTN, GAVE, refractory ascites, pleural effusion (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 MELD 29. She is admitted for worsening hyponatremia and weakness symptoms. Currently having also persistent leakage on post paracentesis site on LLQ area, managed by ostomy bag -> resolved after site sutured. Na 130, Cr 1.8, UOP 3.9L, Urine Na 13. Overnight became more confused. NH3 level over 200. She was already on Lactulose 15g QID and Xifaxan 550mg BID. Plans - Continue Xifaxan; increased Lactulose to 30g TID -> may change to enema form if pt not able to take PO - Repeat u/s guided paracentesis with fluid analysis to r/o SBP. - Consider infectious workup if confusion doesn't clear up (CXR, blood cx if increased WBC or febrile). - Diuretics Lasix 40mg IV BID, Spironolactone 50mg BID. Pt needs to be on 2g Na diet, 1.2L fluid restriction. Monitor renal function and electrolytes - Discussed case with Nephrology: continue Albumin, Octreotide, and Midodrine given low BP - Abd u/s for ascites volume check -> low volume. Last paracentesis on 07/26 w 6L ascites removal. Ostomy bag removed. Paracentesis site numbed w 2ml Lidocaine 1% , and sutured with #3 suture, single stitch. Eventually will need weekly paracentesis which we have arranged in outpt setting. She's not a candidate for TIPS due to high MELD w elevated bilirubin. - Avoid thoracentesis for pleural effusion given likely related to hepatic hydrothorax, will manage ascites and effusion w diuretics, paracentesis. I performed a history and physical examination of the patient. I have discussed the patient's case, impression and plan with WILBERT Aiken. Her note reflects my findings and plan. Patient became confused overnight but more lucid today. Titrate lactulose to about 3 BMs a day. Chris Rico MD
[2017-08-02] MEDS ORDERED: LACTULOSE SYRUP 20 GM/30 ML UDC PO SCH (14:00)
[2017-08-02] MEDS: LACTULOSE SYRUP 30 GM/45 ML UDP PO SCH ×2 (14:10→20:17)
--- NOTE | 2017-08-02 15:22 | Progress Note ---
Internal Med Progress Note Date of Service: Aug 02, 2017. Provider Documentation: SUBJECTIVE: The patient was seen and examined Complains of some pain in Right shoulder on moving Generally weak and lethargic Has had more confusion last night Ammonia >200 .Bowel moved Much better this AM OBJECTIVE: Vital Signs-as noted below Exam: General-No distress at rest Drowsy Eyes-normal ENT-normal Neck-supple Lungs-Clear to auscultate bilaterally Heart-Regular Abdomen-Soft ,mildly tender Clinically minimal ascites Extremities-2+ edema bilaterally Neuro-AAOx3 Generally weak Lab data as noted below. ASSESSMENT & PLAN: Acute Confusion Ammonia >200,Na-130 No Fever,chills Stop -benzo and Narc More Lactulose Observe-clinically a little better this AM Diagnostic paracentesis Hyponatremia in the setting of cirrhosis. Complains of weakness and tiredness She was started with intravenous Lasix, albumin, low sodium diet, a Nephrology consulted Started on Octreotide Monitor PRP-Sodium remains low at 123 Sodium 130 Cirrhosis of the liver with recurrent ascites. She does not have any ascites at this time, as because she has a leaking of Ascitic Fluid from the prior peritoneal paracentesis site GI consulted Abdominal wound is sutured -no more leaking of Peritoneal fluid Hypotension. Blood pressure seems to be on the lower side of normal. Continue with midodrine. Right Shoulder Pain S/P Fracture of the right shoulder CXR;;Stable alignment of the subacute appearing right humeral neck fracture Continue pain med No need to do any X-rays now Gastroesophageal reflux disease. Continue with proton pump inhibitor twice a day. Depression. No acute symptoms at this time. Continue with her current medication. Acute kidney injury with chronic kidney disease. Albumin and Lasix as per nephrology, and Aldactone will be continued as well. We will monitor kidney function Nephrology evaluation-appreciate Input Deep venous thrombosis prophylaxis. SQ Heparin Code status - she will be a full code. Vital Signs: Date Time Temp Pulse Resp B/P (MAP) Pulse Ox O2 Delivery O2 Flow Rate FiO2 08/02/17 12:00 Room Air 08/02/17 11:31 36.7 94 18 110/58 (75) 98 Room Air 08/02/17 08:00 Room Air 08/02/17 07:17 37.0 97 20 101/38 (59) 99 Room Air 08/02/17 04:00 37.2 104 17 129/52 (77) 97 Room Air 08/02/17 04:00 100 Room Air 08/02/17 01:39 119/61 (80) 08/01/17 23:59 100 Room Air 08/01/17 23:24 36.8 92 16 120/60 (80) 96 Room Air 08/01/17 20:00 Room Air 08/01/17 19:03 36.8 90 17 91/45 (60) 98 Room Air 08/01/17 16:00 100 Room Air Lab Results: Results Past 24 Hours Test 08/01/17 22:53 08/02/17 04:30 08/02/17 11:15 Range/Units White Blood Count 3.32 4.8-10.8 K/uL Red Blood Count 2.31 4.2-5.4 M/uL Hemoglobin 7.9 12.0-16.0 g/dL Hematocrit 22.9 37-47 % Mean Corpuscular Volume 99.1 80-100 fL Mean Corpuscular Hemoglobin 34.2 25-34 pg Mean Corpuscular Hemoglobin Concent 34.5 32-36 g/dl Platelet Count 155 130-400 K/uL Mean Platelet Volume 9.0 7.4-10.4 fL Neutrophils (%) (Auto) 72.5 % Lymphocytes (%) (Auto) 12.7 % Monocytes (%) (Auto) 12.7 % Eosinophils (%) (Auto) 0.9 % Basophils (%) (Auto) 0.9 % Neutrophils # (Auto) 2.41 1.4-6.5 K/uL Lymphocytes # (Auto) 0.42 1.2-3.4 K/uL Monocytes # (Auto) 0.42 0.11-0.59 K/uL Eosinophils # (Auto) 0.03 0-0.5 K/uL Basophils # (Auto) 0.03 0-0.2 K/uL RDW Standard Deviation 50.9 36.4-46.3 fL RDW Coefficient of Variation 14.3 11.5-14.5 % Immature Granulocyte % (Auto) 0.3 % Immature Granulocyte # (Auto) 0.01 0.00-0.02 K/uL Poikilocytosis PRESENT Prothrombin Time 17.1 9.0-12.0 SECONDS Prothromb Time International Ratio 1.6 0.9-1.1 Sodium Level 130 136-145 mmol/L Potassium Level 3.6 3.5-5.1 mmol/L Chloride Level 96 98-107 mmol/L Carbon Dioxide Level 26 21-32 mmol/L Anion Gap 8.0 3-11 mmol/L Blood Urea Nitrogen 23 7-18 mg/dl Creatinine 1.88 0.60-1.20 mg/dl Est Creatinine Clear Calc Drug Dose 31.4 ml/min Estimated GFR () 34.5 Estimated GFR (Non- 29.8 BUN/Creatinine Ratio 12.3 10-20 Random Glucose 108 70-99 mg/dl Calcium Level 8.9 8.5-10.1 mg/dl Total Bilirubin 5.2 0.2-1 mg/dl Direct Bilirubin 2.6 0-0.2 mg/dl Aspartate Amino Transf (AST/SGOT) 41 15-37 U/L Alanine Aminotransferase (ALT/SGPT) 21 12-78 U/L Alkaline Phosphatase 135 45-117 U/L Ammonia 210.5 11-32 umol/L Troponin I < 0.015 0-0.045 ng/ml Total Protein 6.2 6.4-8.2 gm/dl Albumin 3.9 3.4-5.0 gm/dl Urine Color YELLOW Urine Appearance CLEAR CLEAR Urine pH 6.5 4.5-7.5 Urine Specific [place] 1.006 1.000-1.030 Urine Protein NEG NEG Urine Glucose (UA) NEG NEG Urine Ketones NEG NEG Urine Occult Blood 1+ NEG Urine Nitrite NEG NEG Urine Bilirubin NEG NEG Urine Urobilinogen NEG NEG Urine Leukocyte Esterase NEG NEG Urine WBC (Auto) 1-5 0-5 /hpf Urine RBC (Auto) 0-4 0-4 /hpf Urine Hyaline Casts (Auto) 1-5 0-5 /lpf Urine Epithelial Cells (Auto) >30 0-5 /lpf Urine Bacteria (Auto) NEG NEG Peritoneal Fluid Color PALE YELLOW Peritoneal Fluid Appearance CLEAR Peritoneal Fluid WBC 116 0-300 /uL Peritoneal Fluid RBC < 3000 /uL Peritoneal Fld Mononuclear WBCs (%) 91.8 % Peritoneal Fld Polynuclear WBCs (%) 8.2 % Peritoneal Fluid Total Protein 1.6 g/dl Peritoneal Fluid Albumin 1.0 g/dl Microbiology Results 08/02/17 Acid Fast Stain, Received Pending 08/02/17 Mycobacterial Culture, Received Pending 08/02/17 Gram Stain, Received Pending 08/02/17 Bacterial Culture, Received Pending
[2017-08-03] VITALS (15 sets, daily range): BP systolic 102–121; BP diastolic 49–61; PULSE 78–93; TEMP 36.8–37.5; O2SAT 93–98
[2017-08-03] MEDS: OCTREOTIDE ACETATE 100 MCG/ML VIAL SQ SCH ×3 (01:02→17:30)
--- NOTE | 2017-08-03 01:52 | Gastroenterology Progress Note ---
Progress Note Date of Service: Aug 03, 2017 Subjective Pt evaluation today including: conversation w/ patient, physical exam The patient notes that she is back to her baseline mental status. She is able to carry a regular conversation without any difficulties today. Review of Systems ENT: No unusual epistaxis, No sore throat, No trouble swallowing Respiratory: No cough, No wheezing, No hemoptysis Abdomen: No pain, No vomiting, No acolic stools Medications Current Inpatient Medications Medications (Trade) Dose Ordered Sig/Betty Route Start Time Stop Time Status Last Admin Dose Admin Ondansetron HCl (Zofran Inj) 4 mg Q6H PRN IV 07/30/17 17:15 08/29/17 17:14 08/02/17 01:09 4 MG Folic Acid (Folvite Tab) 1 mg QAM PO 07/31/17 09:00 08/30/17 08:59 08/02/17 09:39 1 MG Lorazepam (Ativan Tab) 0.5 mg BID PRN PO 07/30/17 17:15 08/29/17 17:14 Future Hold 08/01/17 08:00 0.5 MG Midodrine (Proamatine Tab) 15 mg BID@0800,1400 PO 07/31/17 08:00 08/30/17 07:59 08/02/17 14:10 15 MG Multivitamins/ Minerals (Multivitamin W/ Minerals Tab) 1 tab DAILY PO 07/31/17 09:00 08/30/17 08:59 08/02/17 09:39 1 TAB Oxycodone HCl (Roxicodone Immediate Rel Tab) 5 mg Q6 PRN PO 07/30/17 17:15 08/13/17 17:14 Future Hold 08/01/17 17:06 5 MG Pantoprazole Sodium (Protonix Tab) 40 mg BID PO 07/30/17 21:00 08/29/17 20:59 08/02/17 20:18 40 MG Rifaximin (Xifaxan Tab) 550 mg BID PO 07/30/17 21:00 08/29/17 20:59 08/02/17 20:18 550 MG Spironolactone (Aldactone Tab) 50 mg BID17 PO 07/30/17 17:30 08/29/17 17:29 08/02/17 17:53 50 MG Thiamine HCl (Vitamin B-1 Tab) 100 mg DAILY PO 07/31/17 09:00 08/30/17 08:59 08/02/17 09:39 100 MG Furosemide 40 mg/ Syringe 4 ml @ 4 mls/min BID17 IV 07/31/17 09:00 08/30/17 08:59 08/02/17 17:55 4 MLS/MIN Heparin Sodium (Porcine) (Heparin Sq 5000 Unit/0.5ml) 5,000 unit Q8 SQ 07/30/17 22:00 08/29/17 21:59 08/02/17 23:21 5,000 UNIT Trolamine Salicylate (Myoflex Cream) 1 appln QID PRN EXT 07/31/17 00:15 08/30/17 00:14 07/31/17 05:12 1 APPLN Octreotide Acetate (Sandostatin Inj) 100 mcg Q8H SQ 07/31/17 10:00 08/30/17 09:59 08/03/17 01:02 100 MCG Albumin Human (Albumin 25%) 25 gm Q6 IV 07/31/17 12:00 08/03/17 08:59 08/02/17 23:40 25 GM Lidocaine HCl (Xylocaine 1% Inj (Local)) 20 ml ONE PRN SQ 07/31/17 11:15 Promethazine HCl (Phenergan Tab) 25 mg Q6H PRN PO 08/01/17 00:00 08/31/17 00:00 08/01/17 17:05 25 MG Lactulose (Chronulac Syrup) 30 gm TID PO 08/02/17 14:00 08/29/17 20:59 08/02/17 20:17 30 GM Objective Vital Signs Date Time Temp Pulse Resp B/P (MAP) Pulse Ox O2 Delivery O2 Flow Rate FiO2 08/03/17 00:00 98 Room Air 08/02/17 23:45 36.9 85 19 110/50 (70) 97 Room Air 08/02/17 20:00 98 Room Air 08/02/17 19:38 36.9 83 18 107/55 (72) 98 Room Air 08/02/17 16:00 Room Air 08/02/17 15:58 36.6 80 20 112/57 (75) 99 Room Air 08/02/17 12:00 Room Air 08/02/17 11:31 36.7 94 18 110/58 (75) 98 Room Air 08/02/17 08:00 Room Air 08/02/17 07:17 37.0 97 20 101/38 (59) 99 Room Air 08/02/17 04:00 37.2 104 17 129/52 (77) 97 Room Air 08/02/17 04:00 100 Room Air Physical Exam General Appearance: no apparent distress Respiratory/Chest: lungs clear Cardiovascular: no murmur Abdomen: soft Neurologic/Psych: oriented x 3, + pertinent finding (no asterixis) Laboratory Results Last 24 Hours Test 08/02/17 04:30 08/02/17 11:15 Urine Color YELLOW Urine Appearance CLEAR Urine pH 6.5 Urine Specific [place] 1.006 Urine Protein NEG Urine Glucose (UA) NEG Urine Ketones NEG Urine Occult Blood 1+ Urine Nitrite NEG Urine Bilirubin NEG Urine Urobilinogen NEG Urine Leukocyte Esterase NEG Urine WBC (Auto) 1-5 /hpf Urine RBC (Auto) 0-4 /hpf Urine Hyaline Casts (Auto) 1-5 /lpf Urine Epithelial Cells (Auto) >30 /lpf Urine Bacteria (Auto) NEG Peritoneal Fluid Color PALE YELLOW Peritoneal Fluid Appearance CLEAR Peritoneal Fluid WBC 116 /uL Peritoneal Fluid RBC < 3000 /uL Peritoneal Fld Mononuclear WBCs (%) 91.8 % Peritoneal Fld Polynuclear WBCs (%) 8.2 % Peritoneal Fluid Total Protein 1.6 g/dl Peritoneal Fluid Albumin 1.0 g/dl Assessment and Plan Patient with a history of cirrhosis admitted with hepatic encephalopathy. It appears that she's returned to her baseline mental status. Recommendations Continue with present medications to include rifaximin twice daily and lactulose 1-2 times daily Advance diet as tolerated Please call with any additional questions or concerns, GI to sign off
[2017-08-03] MEDS: ALBUMIN HUMAN 25% 12.5 GM/50 ML VIAL IV SCH (05:25)
[2017-08-03] MEDS: HEPARIN SOD 5000 UNIT/0.5 ML CARP SQ SCH ×3 (05:26→21:29)
[2017-08-03 07:39] LABS: HEMATOCRIT 19.5 % (37-47); HEMOGLOBIN 6.8 g/dL (12.0-16.0); MEAN CORPUSCULAR HEMOGLOBIN 35.2 pg (25-34); MEAN CORPUSCULAR HGB CONC 34.9 g/dl (32-36); MEAN PLATELET VOLUME 8.6 fL (7.4-10.4); PLATELET COUNT 119 K/uL (130-400); RED CELL DISTRIBUTION WIDTH CV 14.7 % (11.5-14.5); WHITE BLOOD COUNT 3.41 K/uL (4.8-10.8)
[2017-08-03 07:48] LABS: CALCIUM 9.2 mg/dl (8.5-10.1); CREATININE 1.08 mg/dl (0.60-1.20); PHOSPHORUS 2.3 mg/dl (2.5-4.9); POTASSIUM 2.9 mmol/L (3.5-5.1)
[2017-08-03] MEDS ORDERED: POTASSIUM CHLORIDE 10 MEQ TABCR PO STA (07:56)
[2017-08-03] MEDS: FUROSEMIDE INJ 40 MG in SYRINGE 0 ML IV SCH ×2 (08:35→17:58)
[2017-08-03] MEDS: CEROVITE ADV FORMULA TAB PO SCH ×2 (08:36→10:33)
[2017-08-03] MEDS: MIDODRINE 10 MG TAB PO SCH ×2 (08:36→14:05)
[2017-08-03] MEDS: RIFAXIMIN TAB 550 MG TAB PO SCH ×2 (08:36→19:51)
[2017-08-03] MEDS: LACTULOSE SYRUP 30 GM/45 ML UDP PO SCH ×3 (08:36→19:50)
[2017-08-03] MEDS: THIAMINE HCL 100 MG TAB PO SCH (08:36)
[2017-08-03] MEDS: PANTOprazole SOD 40 MG TAB PO SCH ×2 (08:36→19:52)
[2017-08-03] MEDS: SPIRONOLACTONE 100 MG TAB PO SCH ×2 (08:42→17:32)
[2017-08-03] MEDS: MAGNESIUM CHLORIDE 64MG DELAYED REL TAB PO SCH ×2 (10:33→19:52)
[2017-08-03] MEDS: TRAMADOL HCL 50 MG TAB PO PRN ×2 (12:43→17:32)
--- NOTE | 2017-08-03 15:37 | Progress Note ---
Internal Med Progress Note Date of Service: Aug 03, 2017. Provider Documentation: SUBJECTIVE: The patient was seen and examined Complains of some pain in Right shoulder on moving Generally weak and lethargic Has had more confusion last night Ammonia >200 on Bowel moved 08/12 Hb low <7 Remains weak and lethargic OBJECTIVE: Vital Signs-as noted below Exam: General-No distress at rest Drowsy and Jaundiced Eyes-normal ENT-normal Neck-supple Lungs-Clear to auscultate bilaterally Heart-Regular Abdomen-Soft ,mildly tender Clinically minimal ascites Extremities-2+ edema bilaterally Neuro-AAOx3 Generally weak Lab data as noted below. ASSESSMENT & PLAN: Acute Confusion-back to baseline Ammonia >200,Na-130 No Fever,chills Stop -benzo and Narc More Lactulose Observe-clinically a little better this AM Diagnostic paracentesis-no SBP Hyponatremia in the setting of cirrhosis. Complains of weakness and tiredness She was started with intravenous Lasix, albumin, low sodium diet, a Nephrology consulted Started on Octreotide Monitor PRP-Sodium remains low at 123 Sodium 138 Minimally low Mag and K-will supplement orally Cirrhosis of the liver with recurrent ascites. She does not have any ascites at this time, as because she has a leaking of Ascitic Fluid from the prior peritoneal paracentesis site GI consulted Abdominal wound is sutured -no more leaking of Peritoneal fluid Hypotension. Blood pressure seems to be on the lower side of normal. Continue with midodrine. Right Shoulder Pain S/P Fracture of the right shoulder CXR;;Stable alignment of the subacute appearing right humeral neck fracture Continue pain med No need to do any X-rays now Will try Ultram Gastroesophageal reflux disease. Continue with proton pump inhibitor twice a day. Depression. No acute symptoms at this time. Continue with her current medication. Acute kidney injury with chronic kidney disease. Albumin and Lasix as per nephrology, and Aldactone will be continued as well. We will monitor kidney function Nephrology evaluation-appreciate Input Renal function is better Deep venous thrombosis prophylaxis. SQ Heparin Code status - she will be a full code. Vital Signs: Date Time Temp Pulse Resp B/P (MAP) Pulse Ox O2 Delivery O2 Flow Rate FiO2 08/03/17 13:23 37.4 81 18 112/56 96 08/03/17 12:30 37.4 83 18 110/50 96 08/03/17 12:00 97 Room Air 08/03/17 12:00 37.3 78 18 106/56 (73) 97 Room Air 08/03/17 11:25 37.3 78 18 106/56 97 08/03/17 11:06 37.2 80 18 109/57 97 08/03/17 08:00 98 Room Air 08/03/17 07:53 36.8 87 18 102/52 (69) 93 Room Air 08/03/17 04:11 98 Room Air 08/03/17 04:06 37.5 78 20 103/58 (73) 96 Room Air 08/03/17 00:00 98 Room Air 08/02/17 23:45 36.9 85 19 110/50 (70) 97 Room Air 08/02/17 20:00 98 Room Air 08/02/17 19:38 36.9 83 18 107/55 (72) 98 Room Air 08/02/17 16:00 Room Air 08/02/17 15:58 36.6 80 20 112/57 (75) 99 Room Air Lab Results: Results Past 24 Hours Test 08/03/17 06:56 Range/Units White Blood Count 3.41 4.8-10.8 K/uL Red Blood Count 1.93 4.2-5.4 M/uL Hemoglobin 6.8 12.0-16.0 g/dL Hematocrit 19.5 37-47 % Mean Corpuscular Volume 101.0 80-100 fL Mean Corpuscular Hemoglobin 35.2 25-34 pg Mean Corpuscular Hemoglobin Concent 34.9 32-36 g/dl RDW Standard Deviation 54.0 36.4-46.3 fL RDW Coefficient of Variation 14.7 11.5-14.5 % Platelet Count 119 130-400 K/uL Mean Platelet Volume 8.6 7.4-10.4 fL Sodium Level 138 136-145 mmol/L Potassium Level 2.9 3.5-5.1 mmol/L Chloride Level 102 98-107 mmol/L Carbon Dioxide Level 27 21-32 mmol/L Anion Gap 9.0 3-11 mmol/L Blood Urea Nitrogen 17 7-18 mg/dl Creatinine 1.08 0.60-1.20 mg/dl Est Creatinine Clear Calc Drug Dose 50.6 ml/min Estimated GFR () 67.4 Estimated GFR (Non- 58.2 BUN/Creatinine Ratio 15.3 10-20 Random Glucose 76 70-99 mg/dl Calcium Level 9.2 8.5-10.1 mg/dl Phosphorus Level 2.3 2.5-4.9 mg/dl Magnesium Level 1.5 1.8-2.4 mg/dl
[2017-08-04] VITALS (7 sets, daily range): BP systolic 108–130; BP diastolic 50–65; PULSE 75–84; TEMP 36.7–37.2; O2SAT 91–99
[2017-08-04] MEDS: OCTREOTIDE ACETATE 100 MCG/ML VIAL SQ SCH ×3 (02:13→17:13)
[2017-08-04] MEDS: TRAMADOL HCL 50 MG TAB PO PRN (02:14)
[2017-08-04] MEDS: HEPARIN SOD 5000 UNIT/0.5 ML CARP SQ SCH ×3 (06:00→21:18)
[2017-08-04] MEDS: THIAMINE HCL 100 MG TAB PO SCH (07:56)
[2017-08-04] MEDS: FUROSEMIDE INJ 40 MG in SYRINGE 0 ML IV SCH ×2 (07:57→17:13)
[2017-08-04] MEDS: MAGNESIUM CHLORIDE 64MG DELAYED REL TAB PO SCH ×2 (07:57→21:09)
[2017-08-04] MEDS: MIDODRINE 10 MG TAB PO SCH ×2 (07:57→14:39)
[2017-08-04] MEDS: SPIRONOLACTONE 100 MG TAB PO SCH ×2 (07:58→17:12)
[2017-08-04] MEDS: CEROVITE ADV FORMULA TAB PO SCH (07:58)
[2017-08-04] MEDS: RIFAXIMIN TAB 550 MG TAB PO SCH ×2 (07:59→21:10)
[2017-08-04] MEDS: PANTOprazole SOD 40 MG TAB PO SCH ×2 (07:59→21:09)
[2017-08-04] MEDS: LACTULOSE SYRUP 30 GM/45 ML UDP PO SCH ×3 (07:59→21:08)
--- NOTE | 2017-08-04 09:47 | Gastroenterology Progress Note ---
Progress Note Date of Service: Aug 04, 2017 Subjective Pt evaluation today including: conversation w/ patient, physical exam Review of Systems Constitutional: No fever, No sweats Respiratory: No cough, No wheezing Cardiac: No chest pain, No PND, No palpitations Medications Current Inpatient Medications Medications (Trade) Dose Ordered Sig/Betty Route Start Time Stop Time Status Last Admin Dose Admin Ondansetron HCl (Zofran Inj) 4 mg Q6H PRN IV 07/30/17 17:15 08/29/17 17:14 08/02/17 01:09 4 MG Folic Acid (Folvite Tab) 1 mg QAM PO 07/31/17 09:00 08/30/17 08:59 08/04/17 07:58 1 MG Lorazepam (Ativan Tab) 0.5 mg BID PRN PO 07/30/17 17:15 08/29/17 17:14 Future Hold 08/01/17 08:00 0.5 MG Midodrine (Proamatine Tab) 15 mg BID@0800,1400 PO 07/31/17 08:00 08/30/17 07:59 08/04/17 07:57 15 MG Multivitamins/ Minerals (Multivitamin W/ Minerals Tab) 1 tab DAILY PO 07/31/17 09:00 08/30/17 08:59 08/04/17 07:58 1 TAB Oxycodone HCl (Roxicodone Immediate Rel Tab) 5 mg Q6 PRN PO 07/30/17 17:15 08/13/17 17:14 Future Hold 08/01/17 17:06 5 MG Pantoprazole Sodium (Protonix Tab) 40 mg BID PO 07/30/17 21:00 08/29/17 20:59 08/04/17 07:59 40 MG Rifaximin (Xifaxan Tab) 550 mg BID PO 07/30/17 21:00 08/29/17 20:59 08/04/17 07:59 550 MG Spironolactone (Aldactone Tab) 50 mg BID17 PO 07/30/17 17:30 08/29/17 17:29 08/04/17 07:58 50 MG Thiamine HCl (Vitamin B-1 Tab) 100 mg DAILY PO 07/31/17 09:00 08/30/17 08:59 08/04/17 07:56 100 MG Furosemide 40 mg/ Syringe 4 ml @ 4 mls/min BID17 IV 07/31/17 09:00 08/30/17 08:59 08/04/17 07:57 4 MLS/MIN Heparin Sodium (Porcine) (Heparin Sq 5000 Unit/0.5ml) 5,000 unit Q8 SQ 07/30/17 22:00 08/29/17 21:59 08/03/17 21:29 5,000 UNIT Trolamine Salicylate (Myoflex Cream) 1 appln QID PRN EXT 07/31/17 00:15 08/30/17 00:14 07/31/17 05:12 1 APPLN Octreotide Acetate (Sandostatin Inj) 100 mcg Q8H SQ 07/31/17 10:00 08/30/17 09:59 08/04/17 02:13 100 MCG Lidocaine HCl (Xylocaine 1% Inj (Local)) 20 ml ONE PRN SQ 07/31/17 11:15 Promethazine HCl (Phenergan Tab) 25 mg Q6H PRN PO 08/01/17 00:00 08/31/17 00:00 08/01/17 17:05 25 MG Lactulose (Chronulac Syrup) 30 gm TID PO 08/02/17 14:00 08/29/17 20:59 08/04/17 07:59 30 GM Magnesium Chloride (Slow-Mag Tab) 64 mg BID PO 08/03/17 09:00 09/02/17 08:59 08/04/17 07:57 64 MG Tramadol HCl (Ultram Tab) 25 mg Q4H PRN PO 08/03/17 11:45 09/02/17 11:44 08/04/17 02:14 25 MG Objective Vital Signs Date Time Temp Pulse Resp B/P (MAP) Pulse Ox O2 Delivery O2 Flow Rate FiO2 08/04/17 08:00 Room Air 08/04/17 07:41 37.1 82 20 108/50 (69) 94 Nasal Cannula 08/04/17 04:04 98 Room Air 08/04/17 04:01 37.2 84 17 115/63 (80) 91 Room Air 08/04/17 00:00 98 Room Air 08/03/17 23:54 37.5 93 18 113/49 (70) 96 Room Air 08/03/17 20:26 98 Room Air 08/03/17 19:16 37.1 90 22 121/61 (81) 96 Room Air 08/03/17 16:00 96 Room Air 08/03/17 15:37 37.1 83 21 120/61 (80) 96 Room Air 08/03/17 13:23 37.4 81 18 112/56 96 08/03/17 12:30 37.4 83 18 110/50 96 08/03/17 12:00 97 Room Air 08/03/17 12:00 37.3 78 18 106/56 (73) 97 Room Air 08/03/17 11:25 37.3 78 18 106/56 97 08/03/17 11:06 37.2 80 18 109/57 97 Physical Exam General Appearance: no apparent distress Neck: no JVD Respiratory/Chest: lungs clear Cardiovascular: + systolic murmur Abdomen: non tender, soft Neurologic/Psych: oriented x 3 Skin: + jaundice Laboratory Results Last 24 Hours Test 08/04/17 08:51 08/04/17 09:06 Assessment and Plan Patient with a history of cirrhosis admitted with hepatic encephalopathy. From the standpoint of her hepatic encephalopathy the patient has returned to her baseline. Of note she did have a drop in her hemoglobin and hematocrit yesterday and was given a transfusion. There appears to be no evidence of active bleeding as she does not have melena or hematemesis or dark stool. Her last upper endoscopy was about 3 months ago and notable for portal gastropathy and grade 1 esophageal varices. I wonder if the anemia is related to her chronic disease process or perhaps small volume oozing from portal gastropathy. Given the recent decline in her hemoglobin it may be prudent to offer the patient an upper endoscopy on Saturday to reevaluate for portal gastropathy. Recommendations Upper endoscopy on Saturday Nothing by mouth at midnight please Please call with any questions or concerns
[2017-08-04 11:23] LABS: HEMATOCRIT 26.7 % (37-47); HEMOGLOBIN 8.8 g/dL (12.0-16.0); PLATELET COUNT 137 K/uL (130-400); RED CELL DISTRIBUTION WIDTH CV 19.4 % (11.5-14.5); RED CELL DISTRIBUTION WIDTH SD 70.9 fL (36.4-46.3); WHITE BLOOD COUNT 5.72 K/uL (4.8-10.8)
[2017-08-04 11:47] LABS: CALCIUM 9.2 mg/dl (8.5-10.1); CREATININE 1.12 mg/dl (0.60-1.20); POTASSIUM 2.9 mmol/L (3.5-5.1)
--- NOTE | 2017-08-04 12:50 | Progress Note ---
Internal Med Progress Note Date of Service: Aug 04, 2017. Provider Documentation: SUBJECTIVE: The patient was seen and examined Complains of some pain in Right shoulder on moving Generally weak and lethargic No more confusion Denies any other symptoms OBJECTIVE: Vital Signs-as noted below Exam: General-No distress at rest Drowsy and Jaundiced Eyes-normal ENT-normal Neck-supple Lungs-Clear to auscultate bilaterally Heart-Regular Abdomen-Soft ,mildly tender Clinically minimal ascites Extremities-2+ edema bilaterally Neuro-AAOx3 Generally weak Lab data as noted below. ASSESSMENT & PLAN: Acute Confusion-back to baseline Ammonia >200,Na-130 No Fever,chills Stop -benzo and Narc More Lactulose Observe-clinically a little better this AM Diagnostic paracentesis-no SBP No more confusion -Ammonia at 30 Remains weak and lethargic and anxious Chronic Anemia Hb Dropped to <7 Transfused 1 unit of PRBC 08/03/17 Hb >8 now EGD tomorrow Hyponatremia in the setting of cirrhosis. Complains of weakness and tiredness She was started with intravenous Lasix, albumin, low sodium diet, a Nephrology consulted Started on Octreotide Monitor PRP-Sodium remains low at 123 Sodium 138 Minimally low Mag and K-will supplement orally will give IV K and Mag Cirrhosis of the liver with recurrent ascites. She does not have any ascites at this time, as because she has a leaking of Ascitic Fluid from the prior peritoneal paracentesis site GI consulted Abdominal wound is sutured -no more leaking of Peritoneal fluid Hypotension. Blood pressure seems to be on the lower side of normal. Continue with midodrine. Right Shoulder Pain S/P Fracture of the right shoulder CXR;;Stable alignment of the subacute appearing right humeral neck fracture Continue pain med No need to do any X-rays now Will try Ultram Gastroesophageal reflux disease. Continue with proton pump inhibitor twice a day. Depression. No acute symptoms at this time. Continue with her current medication. Acute kidney injury with chronic kidney disease. Albumin and Lasix as per nephrology, and Aldactone will be continued as well. We will monitor kidney function Nephrology evaluation-appreciate Input Renal function is better Deep venous thrombosis prophylaxis. SQ Heparin Code status - she will be a full code. Vital Signs: Date Time Temp Pulse Resp B/P (MAP) Pulse Ox O2 Delivery O2 Flow Rate FiO2 08/04/17 11:34 36.7 75 18 119/65 (83) 99 Room Air 08/04/17 08:00 Room Air 08/04/17 07:41 37.1 82 20 108/50 (69) 94 Nasal Cannula 08/04/17 04:04 98 Room Air 08/04/17 04:01 37.2 84 17 115/63 (80) 91 Room Air 08/04/17 00:00 98 Room Air 08/03/17 23:54 37.5 93 18 113/49 (70) 96 Room Air 08/03/17 20:26 98 Room Air 08/03/17 19:16 37.1 90 22 121/61 (81) 96 Room Air 08/03/17 16:00 96 Room Air 08/03/17 15:37 37.1 83 21 120/61 (80) 96 Room Air 08/03/17 13:23 37.4 81 18 112/56 96 Lab Results: Results Past 24 Hours Test 08/04/17 11:10 Range/Units White Blood Count 5.72 4.8-10.8 K/uL Red Blood Count 2.67 4.2-5.4 M/uL Hemoglobin 8.8 12.0-16.0 g/dL Hematocrit 26.7 37-47 % Mean Corpuscular Volume 100.0 80-100 fL Mean Corpuscular Hemoglobin 33.0 25-34 pg Mean Corpuscular Hemoglobin Concent 33.0 32-36 g/dl RDW Standard Deviation 70.9 36.4-46.3 fL RDW Coefficient of Variation 19.4 11.5-14.5 % Platelet Count 137 130-400 K/uL Mean Platelet Volume 9.0 7.4-10.4 fL Sodium Level 137 136-145 mmol/L Potassium Level 2.9 3.5-5.1 mmol/L Chloride Level 99 98-107 mmol/L Carbon Dioxide Level 29 21-32 mmol/L Anion Gap 9.0 3-11 mmol/L Blood Urea Nitrogen 14 7-18 mg/dl Creatinine 1.12 0.60-1.20 mg/dl Est Creatinine Clear Calc Drug Dose 48.8 ml/min Estimated GFR () 64.5 Estimated GFR (Non- 55.6 BUN/Creatinine Ratio 12.7 10-20 Random Glucose 70 70-99 mg/dl Calcium Level 9.2 8.5-10.1 mg/dl Phosphorus Level 2.0 2.5-4.9 mg/dl Magnesium Level 1.5 1.8-2.4 mg/dl Ammonia 30.0 11-32 umol/L
[2017-08-04] MEDS ORDERED: MAGNESIUM SULFATE 1GM / D5W 1 GM in PREMIXED IN D5W 100 ML IV STA (12:54)
[2017-08-04] MEDS: POTASSIUM CHLR 10 MEQ / WTR 10 MEQ in PREMIXED WATER 100 ML IV SCH ×2 (14:43→15:44)
[2017-08-04] MEDS ORDERED: LORAZEPAM 0.5 MG TAB PO PRN (15:00)
[2017-08-04] MEDS: LORAZEPAM 0.5 MG TAB PO PRN (15:11)
[2017-08-05] VITALS (7 sets, daily range): BP systolic 105–110; BP diastolic 52–63; PULSE 66–81; TEMP 36.8–37.2; O2SAT 93–97
[2017-08-05] MEDS: OCTREOTIDE ACETATE 100 MCG/ML VIAL SQ SCH ×3 (02:26→18:16)
[2017-08-05] MEDS: HEPARIN SOD 5000 UNIT/0.5 ML CARP SQ SCH ×3 (05:42→20:38)
[2017-08-05] MEDS: MIDODRINE 10 MG TAB PO SCH ×2 (07:56→14:32)
[2017-08-05] MEDS: MAGNESIUM CHLORIDE 64MG DELAYED REL TAB PO SCH ×2 (07:56→20:37)
[2017-08-05] MEDS: SPIRONOLACTONE 100 MG TAB PO SCH ×2 (07:56→17:21)
[2017-08-05] MEDS: CEROVITE ADV FORMULA TAB PO SCH (07:56)
[2017-08-05] MEDS: RIFAXIMIN TAB 550 MG TAB PO SCH ×2 (07:56→20:37)
[2017-08-05] MEDS: PANTOprazole SOD 40 MG TAB PO SCH ×2 (07:56→20:36)
[2017-08-05] MEDS: THIAMINE HCL 100 MG TAB PO SCH (07:56)
[2017-08-05] MEDS: FUROSEMIDE INJ 40 MG in SYRINGE 0 ML IV SCH ×2 (07:57→17:22)
[2017-08-05] MEDS: LACTULOSE SYRUP 30 GM/45 ML UDP PO SCH ×3 (07:57→20:37)
[2017-08-05 09:20] LABS: HEMATOCRIT 26.2 % (37-47); HEMOGLOBIN 8.8 g/dL (12.0-16.0); MEAN CELL VOLUME 98.1 fL (80-100); MEAN CORPUSCULAR HGB CONC 33.6 g/dl (32-36); MEAN PLATELET VOLUME 9.1 fL (7.4-10.4); PLATELET COUNT 135 K/uL (130-400); RED CELL DISTRIBUTION WIDTH CV 19.2 % (11.5-14.5); RED CELL DISTRIBUTION WIDTH SD 67.9 fL (36.4-46.3); WHITE BLOOD COUNT 6.31 K/uL (4.8-10.8)
[2017-08-05 09:46] LABS: CREATININE 1.09 mg/dl (0.60-1.20); PHOSPHORUS 2.4 mg/dl (2.5-4.9); POTASSIUM 3.5 mmol/L (3.5-5.1)
[2017-08-05] MEDS ORDERED: PROPOFOL IV EMULSION 10 MG/ML 20 ML VIAL IV ONE (10:53)
[2017-08-05] MEDS ORDERED: LIDOCAINE HCL 2% 2 ML VIAL (20MG/ML) ONE (10:53)
--- NOTE | 2017-08-05 11:07 | Progress Note ---
Progress Note Date of Service Aug 05, 2017. Progress Note 52 yo presenting for HE and noted drop in Hb without evidence of bleeding. HE has improved as has Na, planning for EGD today
--- NOTE | 2017-08-05 11:40 | GI REPORT ---
Procedure Date: 08/05/2017 10:58 AM Procedure: Upper GI endoscopy Indications: Iron deficiency anemia Medicines: Monitored Anesthesia Care Complications: No immediate complications. Estimated blood loss: None. Estimated Blood Loss: Estimated blood loss: none. Procedure: Pre-Anesthesia Assessment: - Pre-Anesthesia Assessment: - Prior to the procedure, a History and Physical was performed, and patient medications, allergies and sensitivities were reviewed. The patient's tolerance of previous anesthesia was reviewed. Please see Storage Made Easy for complete details. - The risks and benefits of the procedure and the sedation options and risks were discussed with the patient. All questions were answered and informed consent was obtained. - Patient identification and proposed procedure were verified prior to the procedure by the physician and the nurse. The procedure was verified in the pre-procedure area in the procedure room. After obtaining informed consent, the endoscope was passed carefully and meticuously under direct vision and only advanced when the lumen was clearly identified, C02 insuflation was utilized throughout the entirity of the procedure. Throughout the procedure, the patient's blood pressure, pulse, and oxygen saturations were monitored continuously. After obtaining informed consent, the endoscope was passed under direct vision. Throughout the procedure, the patient's blood pressure, pulse, and oxygen saturations were monitored continuously. The scope was introduced through the mouth, and advanced to the second part of duodenum. The upper GI endoscopy was accomplished without difficulty. The patient tolerated the procedure well. Findings: Grade I varices were found in the lower third of the esophagus. They were diminutive in size. A widely patent and non-obstructing Schatzki ring (acquired) was found in the lower third of the esophagus. Moderate portal hypertensive gastropathy was found in the gastric fundus and in the gastric body. Gastric antral vascular ectasia without bleeding was present in the gastric antrum. The examined duodenum was normal. No findings of acute bleeding Impression: - Grade I esophageal varices. - Widely patent and non-obstructing Schatzki ring. - Portal hypertensive gastropathy. - Gastric antral vascular ectasia without bleeding. - Normal examined duodenum. - No specimens collected. Recommendation: - [facility]. - Continue treatment for HE (seems cleared pre-procedurally), electryloyte replacement - Ok for D/C when appropriate - Blood Cultures - Urine Culture - Will contact Transplant Team in [place] for update. Andrew Colón MD 08/05/2017 11:39:52 AM This report has been signed electronically. Note Initiated On: 08/05/2017 10:58 AM I attest to the content of the Intraoperative Record and orders documented therein, exceptions below
--- NOTE | 2017-08-05 11:51 | Anesthesiology Progress Note ---
Anesthesia Post Op Note Date & Time Aug 05, 2017 at 11:51 Vital Signs Pain Intensity: 0.0 Vital Signs Past 12 Hours Date Time Temp Pulse Resp B/P (MAP) Pulse Ox O2 Delivery O2 Flow Rate FiO2 08/05/17 11:43 63 18 99/47 (64) 63 Room Air 08/05/17 11:28 69 18 99/47 (64) 69 Room Air 08/05/17 10:54 36.6 65 20 101/43 (62) 96 Room Air 08/05/17 08:10 Room Air 08/05/17 08:08 37.0 78 20 108/58 (75) 94 Room Air 08/05/17 04:00 Room Air 08/05/17 03:57 37.1 76 19 105/56 (72) 93 Room Air 08/05/17 00:10 Room Air 08/05/17 00:02 37.2 81 18 110/63 (79) 93 Room Air Notes Mental Status: alert / awake / arousable, participated in evaluation Pt Amnestic to Procedure: Yes Nausea / Vomiting: adequately controlled Pain: adequately controlled Airway Patency, RR, SpO2: stable & adequate BP & HR: stable & adequate Hydration State: stable & adequate Anesthetic Complications: no major complications apparent
--- NOTE | 2017-08-05 16:44 | Progress Note ---
Internal Med Progress Note Date of Service: Aug 05, 2017. Provider Documentation: SUBJECTIVE: The patient was seen and examined Complains of some pain in Right shoulder on moving Generally weak and lethargic No more confusion Denies any other symptoms S/P negative EGD Wants to go home OBJECTIVE: Vital Signs-as noted below Exam: General-No distress at rest Drowsy and Jaundiced Eyes-normal ENT-normal Neck-supple Lungs-Clear to auscultate bilaterally Heart-Regular Abdomen-Soft,no tenderness Clinically minimal ascites Extremities-1+ edema bilaterally [id number] more confusion Generally weak Lab data as noted below. ASSESSMENT & PLAN: Acute Confusion,Hepatic Encephalopathy -back to baseline Ammonia >200,Na-130 No Fever,chills Stop -benzo and Narc More Lactulose Observe-clinically a little better this AM Diagnostic paracentesis-no SBP No more confusion -Ammonia at 30 Remains weak and lethargic and anxious Back to baseline Chronic Anemia Hb Dropped to <7 Transfused 1 unit of PRBC 08/03/17 Hb >8 now EGD tomorrow-no acute bleeding Hyponatremia in the setting of cirrhosis. Complains of weakness and tiredness She was started with intravenous Lasix, albumin, low sodium diet, a Nephrology consulted Started on Octreotide Monitor PRP-Sodium remains low at 123 Sodium 138 Minimally low Mag and K-will supplement orally will give IV K and Mag Electrolytes are corrected Cirrhosis of the liver with recurrent ascites. She does not have any ascites at this time, as because she has a leaking of Ascitic Fluid from the prior peritoneal paracentesis site GI consulted Abdominal wound is sutured -no more leaking of Peritoneal fluid Hypotension. Blood pressure seems to be on the lower side of normal. Continue with midodrine. Right Shoulder Pain S/P Fracture of the right shoulder CXR;;Stable alignment of the subacute appearing right humeral neck fracture Continue pain med No need to do any X-rays now Will try Ultram- Gastroesophageal reflux disease. Continue with proton pump inhibitor twice a day. Depression. No acute symptoms at this time. Continue with her current medication. Acute kidney injury with chronic kidney disease. Albumin and Lasix as per nephrology, and Aldactone will be continued as well. We will monitor kidney function Nephrology evaluation-appreciate Input Renal function is better Deep venous thrombosis prophylaxis. SQ Heparin Code status - she will be a full code. Likely discharge tomorrow Vital Signs: Date Time Temp Pulse Resp B/P (MAP) Pulse Ox O2 Delivery O2 Flow Rate FiO2 08/05/17 15:26 36.8 66 107/52 (70) 97 Room Air 08/05/17 12:45 Room Air 08/05/17 11:58 61 18 102/53 (69) 92 Room Air 08/05/17 11:43 63 18 99/47 (64) 93 Room Air 08/05/17 11:28 69 18 99/47 (64) 93 Room Air 08/05/17 10:54 36.6 65 20 101/43 (62) 96 Room Air 08/05/17 08:10 Room Air 08/05/17 08:08 37.0 78 20 108/58 (75) 94 Room Air 08/05/17 04:00 Room Air 08/05/17 03:57 37.1 76 19 105/56 (72) 93 Room Air 08/05/17 00:10 Room Air 08/05/17 00:02 37.2 81 18 110/63 (79) 93 Room Air 08/04/17 20:00 Room Air 08/04/17 19:29 37.1 83 21 116/56 (76) 95 Room Air Lab Results: Results Past 24 Hours Test 08/05/17 08:54 Range/Units White Blood Count 6.31 4.8-10.8 K/uL Red Blood Count 2.67 4.2-5.4 M/uL Hemoglobin 8.8 12.0-16.0 g/dL Hematocrit 26.2 37-47 % Mean Corpuscular Volume 98.1 80-100 fL Mean Corpuscular Hemoglobin 33.0 25-34 pg Mean Corpuscular Hemoglobin Concent 33.6 32-36 g/dl RDW Standard Deviation 67.9 36.4-46.3 fL RDW Coefficient of Variation 19.2 11.5-14.5 % Platelet Count 135 130-400 K/uL Mean Platelet Volume 9.1 7.4-10.4 fL Sodium Level 135 136-145 mmol/L Potassium Level 3.5 3.5-5.1 mmol/L Chloride Level 98 98-107 mmol/L Carbon Dioxide Level 29 21-32 mmol/L Anion Gap 8.0 3-11 mmol/L Blood Urea Nitrogen 13 7-18 mg/dl Creatinine 1.09 0.60-1.20 mg/dl Est Creatinine Clear Calc Drug Dose 50.5 ml/min Estimated GFR () 66.6 Estimated GFR (Non- 57.5 BUN/Creatinine Ratio 12.3 10-20 Random Glucose 88 70-99 mg/dl Calcium Level 9.0 8.5-10.1 mg/dl Phosphorus Level 2.4 2.5-4.9 mg/dl Magnesium Level 1.7 1.8-2.4 mg/dl
[2017-08-06 00:05] VITALS: BP 94/58; PULSE 69; TEMP 36.7; O2SAT 94
[2017-08-06] MEDS: OCTREOTIDE ACETATE 100 MCG/ML VIAL SQ SCH ×2 (01:53→10:00)
[2017-08-06] MEDS: HEPARIN SOD 5000 UNIT/0.5 ML CARP SQ SCH (05:35)
[2017-08-06 07:23] VITALS: BP 98/57; PULSE 75; TEMP 36.8; O2SAT 95
[2017-08-06] MEDS: MIDODRINE 10 MG TAB PO SCH (09:05)
[2017-08-06] MEDS: SPIRONOLACTONE 100 MG TAB PO SCH (09:06)
[2017-08-06] MEDS: CEROVITE ADV FORMULA TAB PO SCH (09:07)
[2017-08-06] MEDS: PANTOprazole SOD 40 MG TAB PO SCH (09:07)
[2017-08-06] MEDS: RIFAXIMIN TAB 550 MG TAB PO SCH (09:07)
[2017-08-06] MEDS: THIAMINE HCL 100 MG TAB PO SCH (09:08)
[2017-08-06] MEDS: LACTULOSE SYRUP 30 GM/45 ML UDP PO SCH (09:08)
[2017-08-06] MEDS: MAGNESIUM CHLORIDE 64MG DELAYED REL TAB PO SCH (09:08)
[2017-08-06] MEDS: FUROSEMIDE INJ 40 MG in SYRINGE 0 ML IV SCH (09:09)
--- NOTE | 2017-08-06 10:40 | Gastroenterology Progress Note ---
Progress Note Date of Service: Aug 06, 2017 Subjective Pt evaluation today including: conversation w/ patient, physical exam, chart review, lab review, review of studies, review of inpatient medication list Ms. Licona is a 52 yr old female with ETOH cirrhosis (abstaining) who was admitted on 07/30 for hepatic encephalopathy, hyponatremia - both resolved. Paracentesis fluid culture negative. She then experienced a drop in Hb and occult positive stool (no gross GI bleeding) during the hospitalization. Hb 9.8 on admission, dropped to 6.8, received a unit of blood, yesterday 8.8 and stable post transfusion. Today she tells me that she feels well and would like to go home. EGD 08/06 (yesterday) with: - Grade I esophageal varices. - Widely patent and non-obstructing Schatzki ring. - Portal hypertensive gastropathy. - Gastric antral vascular ectasia without bleeding. - Normal examined duodenum. Review of Systems Constitutional: No fever Eyes: No worsening of vision ENT: No hearing loss Respiratory: No cough Cardiac: No chest pain Abdomen: No pain, No nausea, No vomiting, No diarrhea, No constipation, No GI bleeding Musculoskeletal: No joint pain Female : No dysuria Neuro: No memory loss Psych: No depression symptoms Heme: No abnormal bleeding/bruising Endo: No fatigue Skin: No jaundice Medications Current Inpatient Medications Medications (Trade) Dose Ordered Sig/Betty Route Start Time Stop Time Status Last Admin Dose Admin Ondansetron HCl (Zofran Inj) 4 mg Q6H PRN IV 07/30/17 17:15 08/29/17 17:14 08/02/17 01:09 4 MG Folic Acid (Folvite Tab) 1 mg QAM PO 07/31/17 09:00 08/30/17 08:59 08/06/17 09:04 1 MG Lorazepam (Ativan Tab) 0.5 mg BID PRN PO 07/30/17 17:15 08/29/17 17:14 Future Hold 08/04/17 15:11 0.5 MG Midodrine (Proamatine Tab) 15 mg BID@0800,1400 PO 07/31/17 08:00 08/30/17 07:59 08/06/17 09:05 15 MG Multivitamins/ Minerals (Multivitamin W/ Minerals Tab) 1 tab DAILY PO 07/31/17 09:00 08/30/17 08:59 08/06/17 09:07 1 TAB Oxycodone HCl (Roxicodone Immediate Rel Tab) 5 mg Q6 PRN PO 07/30/17 17:15 08/13/17 17:14 Future Hold 08/01/17 17:06 5 MG Pantoprazole Sodium (Protonix Tab) 40 mg BID PO 07/30/17 21:00 08/29/17 20:59 08/06/17 09:07 40 MG Rifaximin (Xifaxan Tab) 550 mg BID PO 07/30/17 21:00 08/29/17 20:59 08/06/17 09:07 550 MG Spironolactone (Aldactone Tab) 50 mg BID17 PO 07/30/17 17:30 08/29/17 17:29 08/06/17 09:06 50 MG Thiamine HCl (Vitamin B-1 Tab) 100 mg DAILY PO 07/31/17 09:00 08/30/17 08:59 08/06/17 09:08 100 MG Furosemide 40 mg/ Syringe 4 ml @ 4 mls/min BID17 IV 07/31/17 09:00 08/30/17 08:59 08/06/17 09:09 4 MLS/MIN Heparin Sodium (Porcine) (Heparin Sq 5000 Unit/0.5ml) 5,000 unit Q8 SQ 07/30/17 22:00 08/29/17 21:59 08/05/17 05:42 5,000 UNIT Trolamine Salicylate (Myoflex Cream) 1 appln QID PRN EXT 07/31/17 00:15 08/30/17 00:14 07/31/17 05:12 1 APPLN Octreotide Acetate (Sandostatin Inj) 100 mcg Q8H SQ 07/31/17 10:00 08/30/17 09:59 08/05/17 18:16 100 MCG Lidocaine HCl (Xylocaine 1% Inj (Local)) 20 ml ONE PRN SQ 07/31/17 11:15 Promethazine HCl (Phenergan Tab) 25 mg Q6H PRN PO 08/01/17 00:00 08/31/17 00:00 08/01/17 17:05 25 MG Lactulose (Chronulac Syrup) 30 gm TID PO 08/02/17 14:00 08/29/17 20:59 08/06/17 09:08 30 GM Magnesium Chloride (Slow-Mag Tab) 64 mg BID PO 08/03/17 09:00 09/02/17 08:59 08/06/17 09:08 64 MG Tramadol HCl (Ultram Tab) 25 mg Q4H PRN PO 08/03/17 11:45 09/02/17 11:44 08/04/17 02:14 25 MG Lorazepam (Ativan Tab) 0.25 mg TID PRN PO 08/04/17 15:00 09/03/17 14:59 08/05/17 00:35 0.25 MG Objective Vital Signs Date Time Temp Pulse Resp B/P (MAP) Pulse Ox O2 Delivery O2 Flow Rate FiO2 08/06/17 07:43 Room Air 08/06/17 07:23 36.8 75 18 98/57 (71) 95 Room Air 08/06/17 00:05 36.7 69 18 94/58 (70) 94 Room Air 08/06/17 00:00 Room Air 08/05/17 19:02 36.8 71 18 105/60 (75) 96 Room Air 08/05/17 18:17 36.8 66 18 97 08/05/17 16:00 97 Room Air 08/05/17 15:26 36.8 66 107/52 (70) 97 Room Air 08/05/17 12:45 Room Air 08/05/17 11:58 61 18 102/53 (69) 92 Room Air 08/05/17 11:43 63 18 99/47 (64) 93 Room Air 08/05/17 11:28 69 18 99/47 (64) 93 Room Air 08/05/17 10:54 36.6 65 20 101/43 (62) 96 Room Air Physical Exam General Appearance: no apparent distress ENT: pharynx normal Neck: supple, no JVD Respiratory/Chest: lungs clear Cardiovascular: regular rate, rhythm, no JVD, no murmur Abdomen: non tender, soft, + pertinent finding (mild ascites) Extremities: no pedal edema Neurologic/Psych: alert, normal mood/affect, oriented x 3 Skin: no jaundice Assessment and Plan Ms. Licona is a 52 yr old female with ETOH cirrhosis (abstaining), esophageal varices, who was admitted with hepatic encephalopathy (resolved). Anemia was likely caused by the slow GI blood loss that occurs with portal hypertensive gastropathy. Plan: 1. No GI contraindication to discharge 2. Continue the same OP meds as prior to admission. 3. Pt has OP GI f/u already scheduled for 2 weeks. I have seen , examined and agree with the plan as outlined by WILBERT Velarde as above. -Patient left today prior to rounds
== END 2017-08-06 12:30 | disposition left against medical advice (07) | DRG 433 ==
LOC: UNDOADMIN 15:11 → C.2T 15:11 → ENRESERV 08-05 17:45 → C.MS4W 08-05 18:31
PROVIDERS: ADMIT Hospitalist; ATTEND Internal Medicine
PROC: 0DJ08ZZ Inspection of Upper Intestinal Tract, Via Natural or Artificial Opening Endoscopic (ICD-10-PCS; principal; 2017-08-05 11:00)
DX: K70.31 Alcoholic cirrhosis of liver with ascites (principal); E87.1 Hypo-osmolality and hyponatremia; N17.9 Acute kidney failure, unspecified; J94.8 Other specified pleural conditions; F32.9 Major depressive disorder, single episode, unspecified; K21.9 Gastro-esophageal reflux disease without esophagitis; F17.200 Nicotine dependence, unspecified, uncomplicated; I95.9 Hypotension, unspecified; N18.9 Chronic kidney disease, unspecified; M25.511 Pain in right shoulder; Z80.3 Family history of malignant neoplasm of breast; Z82.3 Family history of stroke

== ENCOUNTER 2017-09-24 16:37 | Inpatient (IN) | payer BC ==
[~2017-09-24] VITALS: Ht 165.1 cm; Wt 76.5 kg
[~2017-09-24 16:37] MED LIST changes: -CPR500 PO; +POTA20TA16 PO; -RXC5 PO; +TRAM-10 PO
[2017-09-24] MEDS ORDERED: SODIUM CHLORIDE 0.9% 500ML 500 ML IV STA (16:53)
[2017-09-24] MEDS ORDERED: ALBUMIN HUMAN 25% 12.5 GM/50 ML VIAL IV SCH (17:15)
[2017-09-24 17:35] LABS: HEMOGLOBIN 9.1 g/dL (12.0-16.0); MEAN CELL VOLUME 99.2 fL (80-100); MEAN CORPUSCULAR HEMOGLOBIN 34.7 pg (25-34); MEAN PLATELET VOLUME 8.5 fL (7.4-10.4); PLATELET COUNT 275 K/uL (130-400); RED CELL DISTRIBUTION WIDTH CV 15.5 % (11.5-14.5); RED CELL DISTRIBUTION WIDTH SD 56.4 fL (36.4-46.3); WHITE BLOOD COUNT 9.35 K/uL (4.8-10.8)
[2017-09-24 17:54] LABS: INR 1.5 (0.9-1.1); PTT PATIENT 39.3 SECONDS (21.0-31.0)
[2017-09-24] MEDS ORDERED: LSX40 PO (18:05)
[2017-09-24] MEDS ORDERED: RIFA550T2 PO (18:05)
[2017-09-24] MEDS ORDERED: FOLI1TAB8 PO (18:05)
[2017-09-24] MEDS ORDERED: POTA20TA13 PO (18:05)
[2017-09-24] MEDS ORDERED: SPRN100 PO (18:05)
[2017-09-24] MEDS ORDERED: ATV5X PO (18:05)
[2017-09-24] MEDS ORDERED: LACT10SO17 PO (18:05)
[2017-09-24] MEDS ORDERED: PANT40TA2 PO (18:05)
[2017-09-24] MEDS ORDERED: ULT50 PO (18:05)
[2017-09-24] MEDS ORDERED: MIDO5TAB PO (18:05)
[2017-09-24 18:07] LABS: ALKALINE PHOSPHATASE 216 U/L (45-117); ALT/SGPT 25 U/L (12-78); AST/SGOT 55 U/L (15-37); BLOOD UREA NITROGEN 21 mg/dl (7-18); CALCIUM 8.7 mg/dl (8.5-10.1); CARBON DIOXIDE 18 mmol/L (21-32); CREATININE 1.36 mg/dl (0.60-1.20); GLUCOSE 91 mg/dl (70-99); LIPASE 221 U/L (73-393); POTASSIUM 4.4 mmol/L (3.5-5.1); SODIUM 119 mmol/L (136-145); TOTAL PROTEIN 6.4 gm/dl (6.4-8.2)
[2017-09-24 18:08] LABS: BASO % 0.3 %; BASO ABS # 0.03 K/uL (0-0.2); EOS ABS # 0.09 K/uL (0-0.5); IG# 0.12 K/uL (0.00-0.02); LYMPH % 8.8 %; LYMPH ABS # 0.82 K/uL (1.2-3.4); NEUT % 73.6 %; NEUT ABS # 6.89 K/uL (1.4-6.5)
[2017-09-24] MEDS ORDERED: THIA100T11 PO (18:08)
[2017-09-24] MEDS ORDERED: MoRPHine SULFATE 4 MG/ML 1 ML CARP\\VIAL IV STA (19:33)
[2017-09-24 20:02] VITALS: BP 115/55; PULSE 102; TEMP 36.8; Ht 165.1 cm; Wt 76.5 kg
--- NOTE | 2017-09-24 20:15 | EMERGENCY ROOM VISIT NOTE ---
History Report prepared by Jackelin: Salvador Trejo Under the Supervision of: Dr. Haider Corbin D.O. First contact with patient: 16:45 Chief Complaint: ABDOMINAL PAIN Stated Complaint: LOW SOD, LIGHT HEADED, CHEST AND STOMACH PAIN History of Present Illness The patient is a 52 year old female who presents to the Emergency Room with complaints of worsening "fullness" in her abdomen. The patient states that she has a Paracentesis procedure scheduled tomorrow with Dr. Funk, and he directed her to come to the ER tonight secondary to her recent blood work. Her laboratory studies showed low sodium levels. She was last tapped 15 days ago. She is on a transport list for alcoholic cirrhosis. The patient states that the fluid in her abdomen is painful. She denies any chest pain or shortness of breath, and adds that her blood pressure is usually low. Her added that her blood pressure is commonly in the 90's systolically and 50's diastolically. Pt denies headache, change in vision, fevers, nausea, vomiting, diarrhea, pain with urination, and melena. Source of History: patient Position: abdomen Quality: other (Fullness) Timing: worsening Associated Symptoms: No chest pain, No SOB Note: Hypotensive Review of Systems See HPI for pertinent positives & negatives. A total of 10 systems reviewed and were otherwise negative. Past Medical & Surgical Medical Problems: (1) AC ALCOHOLIC HEPATITIS (2) Acute on chronic renal failure (3) Anemia (4) Cirrhosis of liver (5) Cirrhosis with alcoholism (6) Cirrhosis, alcoholic (7) Colitis (8) Decompensated hepatic cirrhosis (9) DEPRESSIVE DISORDER NEC (10) DUODENAL ULCER NOS (11) ESOPHAGEAL REFLUX (12) Esophageal varices (13) H/O ETOH abuse (14) Hepatorenal syndrome (15) Hyponatremia (16) Hyponatremia (17) Syncope and collapse (18) Unsteady gait Family History FH: CAD (coronary artery disease) FATHER Stroke MOTHER Social History Smoking Status: Light Tobacco Smoker Alcohol Use: heavy Drug Use: none, other Marital Status: Housing Status: lives with family Occupation Status: disabled Current/Historical Medications Scheduled Folic Acid (Folvite), 1 MG PO QAM Furosemide (Furosemide), 80 MG PO BID Lactulose (Chronulac), 15 GM PO QID Midodrine Hcl (Midodrine Hcl), 15 MG PO BID Pantoprazole (Pantoprazole Sodium), 40 MG PO BID Potassium Chloride Microencaps (Potassium Chloride Er), 20 MEQ PO BID Rifaximin (Xifaxan), 550 MG PO BID Spironolactone (Spironolactone), 100 MG PO DAILY Thiamine Hcl (Vitamin B-1), 100 MG PO Q24H Scheduled PRN Lorazepam (Lorazepam), 0.5 MG PO BID PRN for Anxiety Tramadol HCl (Tramadol HCl), 50 MG PO Q12 PRN for Pain Allergies Coded Allergies: No Known Allergies (Verified , 09/09/17) Physical Exam Vital Signs Date Time Temp Pulse Resp B/P (MAP) Pulse Ox O2 Delivery O2 Flow Rate FiO2 09/24/17 19:32 103 18 122/55 97 Room Air 09/24/17 18:31 100 18 115/51 96 Room Air 09/24/17 17:40 99 21 112/43 98 Room Air 09/24/17 17:37 95 09/24/17 17:28 95 16 105/50 98 Room Air 09/24/17 16:41 36.6 98 20 88/51 98 Room Air Physical Exam GENERAL: Sitting up in bed, alert, ill-appearing, and disheveled, well nourished , non-toxic EYE EXAM: normal conjunctiva. PERRL and EOM's grossly intact. There is scleral icterus. OROPHARYNX: no exudate, no erythema, lips, buccal mucosa, and tongue normal and mucous membranes are moist NECK: supple, no nuchal rigidity, no adenopathy, non-tender LUNGS: Clear to auscultation. Normal chest wall mechanics HEART: no murmurs, S1 normal and S2 normal ABDOMEN: abdomen soft, but distended with positive fluid wave, minimal diffuse tenderness. normo-active bowel sounds, no rebound or guarding. BACK: Back is symmetrical on inspection and there is no deformity, no midline tenderness, no CVA tenderness. SKIN: no rashes and no bruising UPPER EXTREMITIES: upper extremities are grossly normal. LOWER EXTREMITIES: Pitting edema bilaterally. NEURO EXAM: Normal sensorium, cranial nerves II-XII grossly intact, normal speech, no gross weakness of arms, no gross weakness of legs. Medical Decision & Procedures Laboratory Results 09/24/17 17:10 Red Blood Count 2.62, Mean Corpuscular Volume 99.2, Mean Corpuscular Hemoglobin 34.7, Mean Corpuscular Hemoglobin Concent 35.0, Mean Platelet Volume 8.5, Neutrophils (%) (Auto) 73.6, Lymphocytes (%) (Auto) 8.8, Monocytes (%) (Auto) 15.0, Eosinophils (%) (Auto) 1.0, Basophils (%) (Auto) 0.3, Neutrophils # (Auto ) 6.89, Lymphocytes # (Auto) 0.82, Monocytes # (Auto) 1.40, Eosinophils # (Auto ) 0.09, Basophils # (Auto) 0.03 Test 09/24/17 17:10 09/24/17 18:47 09/24/17 20:01 09/24/17 20:05 White Blood Count 9.35 K/uL (4.8-10.8) Red Blood Count 2.62 M/uL (4.2-5.4) Hemoglobin 9.1 g/dL (12.0-16.0) Hematocrit 26.0 % (37-47) Mean Corpuscular Volume 99.2 fL (80-100) Mean Corpuscular Hemoglobin 34.7 pg (25-34) Mean Corpuscular Hemoglobin Concent 35.0 g/dl (32-36) Platelet Count 275 K/uL (130-400) Mean Platelet Volume 8.5 fL (7.4-10.4) Neutrophils (%) (Auto) 73.6 % Lymphocytes (%) (Auto) 8.8 % Monocytes (%) (Auto) 15.0 % Eosinophils (%) (Auto) 1.0 % Basophils (%) (Auto) 0.3 % Neutrophils # (Auto) 6.89 K/uL (1.4-6.5) Lymphocytes # (Auto) 0.82 K/uL (1.2-3.4) Monocytes # (Auto) 1.40 K/uL (0.11-0.59) Eosinophils # (Auto) 0.09 K/uL (0-0.5) Basophils # (Auto) 0.03 K/uL (0-0.2) RDW Standard Deviation 56.4 fL (36.4-46.3) RDW Coefficient of Variation 15.5 % (11.5-14.5) Immature Granulocyte % (Auto) 1.3 % Immature Granulocyte # (Auto) 0.12 K/uL (0.00-0.02) Echinocytes 1+ Prothrombin Time 15.2 SECONDS (9.0-12.0) Prothromb Time International Ratio 1.5 (0.9-1.1) Activated Partial Thromboplast Time 39.3 SECONDS (21.0-31.0) Partial Thromboplastin Ratio 1.5 Magnesium Level 2.0 mg/dl (1.8-2.4) Total Bilirubin 7.9 mg/dl (0.2-1) Direct Bilirubin 4.3 mg/dl (0-0.2) Aspartate Amino Transf (AST/SGOT) 55 U/L (15-37) Alanine Aminotransferase (ALT/SGPT) 25 U/L (12-78) Alkaline Phosphatase 216 U/L (45-117) Total Protein 6.4 gm/dl (6.4-8.2) Albumin 3.0 gm/dl (3.4-5.0) Lipase 221 U/L (73-393) Venous Blood pH 7.47 (7.36-7.41) Venous Blood Partial Pressure CO2 29 mmHg (38.0-50.0) Venous Blood Partial Pressure O2 40 mmHg Venous Blood HCO3 21 mmol/L Venous Blood Oxygen Saturation 75.4 % Venous Blood Base Excess -2.3 mEq/L Test 09/24/17 20:08 Laboratory results per my review. Medications Administered Medications (Trade) Dose Ordered Sig/Betty Route Start Time Stop Time Status Last Admin Dose Admin Sodium Chloride 500 ml @ 999 mls/hr Q31M STAT IV 09/24/17 16:53 09/24/17 17:23 DC 09/24/17 17:25 999 MLS/HR Albumin Human (Albumin 25%) 25 gm ONE IV 09/24/17 17:15 09/27/17 17:14 09/24/17 17:39 25 GM Morphine Sulfate (MoRPHine SULFATE INJ) 4 mg NOW STAT IV 09/24/17 19:33 09/24/17 19:34 DC 09/24/17 19:36 4 MG ED Course ED COURSE: Vital signs were reviewed and showed hypotensive vitals. The patients medical record was reviewed The above diagnostic studies were performed and reviewed. ED treatments and interventions as stated above. 1646: The patient was evaluated in room A10. A complete history and physical examination was performed. 1653: Ordered Sodium Chloride 500 mL @ 999 mL/hr IV. 1714: Ordered Albumin Human 25 gm IV. 1819: I discussed the case with Mirtha Clark PA-C [facility] Hospitalist. She will evaluate the patient for further treatment. []: Upon reevaluation, the patient is [].I discussed my findings with the [ patient] and [] understands and agrees with the treatment plan. Based on the patients age, coexisting illnesses, exam and lab findings the decision to treat as an [inpatient][outpatient] was made. The patient remained stable while under my care. [The patient appeared well at the time of discharge.] [The patient will be evaluated for further management.] Medical Decision Differential diagnoses includes but is not limited to gastritis, peptic ulcer disease, GERD, gallbladder disease, pancreatitis, small bowel obstruction, acute coronary syndrome, pericarditis, ischemic bowel, irritable bowel disease, irritable bowel syndrome, appendicitis, diverticulitis, malignancy, hernia, urinary tract infection, torsion, perforation, trauma, infectious. Patient is a 52-year-old alcoholic cirrhotic on the transplant list that presents to ER referred in by GI for hyponatremia. She notes that she has been having significant abdominal distention as she was due for paracentesis several days ago and did not have this done. CBC shows no significant leukocytosis but a chronic anemia. Sodium is significantly low at 119. Bicarb was low at 18. Creatinine 1.36. Bilirubin was elevated at 7 as well as INR was elevated at 1.5. INR is consistent with old. Her T bili in the past has been as high as 7 and persistently runs in the 5-6. Patient was given IV morphine for pain. She remained stable while in the ER. She was initially hypotensive systolic in the 80s. Due to her cirrhosis she was given IV albumin systolics improved significantly to the low 120s. She did admit to some shortness of breath and chest discomfort but notes that this is secondary to the distention of her abdomen and occurs every time she becomes distended and needs a paracentesis. Patient was updated at bedside. Discussed case with internal medicine. She was given a bolus normal saline. Medication Reconcilliation Current Medication List: was personally reviewed by me Blood Pressure Screening Patient's blood pressure: Low blood pressure Consults Time Called: 1815 Consulting Physician: Mirtha March Hospitalist. Returned Call: 1820 I discussed the case with Mirtha March Hospitalist. She will evaluate the patient for further treatment. Impression Primary Impression: Hypotension Additional Impressions: Hyponatremia Elevated bilirubin Anemia Scribe Attestation The scribe's documentation has been prepared under my direction and personally reviewed by me in its entirety. I confirm that the note above accurately reflects all work, treatment, procedures, and medical decision making performed by me. Departure Information Dispostion Being Evaluated By Hospitalist Referrals No Doctor, Assigned (PCP) Patient Instructions My [facility] Problem Qualifiers Primary Impression: Hypotension Hypotension type: unspecified hypotension type Qualified Codes: I95.9 - Hypotension, unspecified
--- NOTE | 2017-09-24 20:55 | History and Physical ---
History & Physical Date & Time of Service: Sep 24, 2017 at 20:41 Chief Complaint: Low Sod, Light Headed, Chest And Stomach Pain Primary Care Physician: Stef Hylton D.O. History of Present Illness Source: patient, clinic records, hospital records Patient is a 52-year-old with a past medical history of alcoholic cirrhosis, chronic hypotension, chronic hyponatremia and other medical problems listed below who presents with worsening abdominal fullness. Since last weekend, patient has been experiencing abdominal pain 2/2 ascites that she describes as constant, throbbing, 9/10 pain that is worse with inspiration or movement. Denies associated nausea. Is scheduled for paracentesis procedure tomorrow with Dr. Funk but due to poor outpatient labs, patient was directed to come to ED for further evaluation. Last paracentesis was 15 days ago. States that she is on a liver transplant list. Reportedly stopped drinking in November 2016. In addition to abdominal pain, patient endorses fatigue, generalized weakness and lightheadedness with exertion. Denies fever, chills, confusion, headache, visual changes, chest pain, SOB, nausea, vomiting, dysuria, melena, hematochezia. Chronic LE swelling. Did not take any medications today due to feeling "too full". In ED, patient was found to be hypotensive at 88/51 with sodium of 119, Tbili of 7.9, dbili of 4.3 and AST of 55. Received 500cc NSS bolus and albumin with improvement of BP to 105/50. Past Medical/Surgical History Medical Problems: (1) Anemia of chronic disease Status: Chronic (2) Cirrhosis, alcoholic Status: Chronic (3) Depression Status: Chronic (4) Esophageal varices Status: Chronic (5) GERD (gastroesophageal reflux disease) Status: Chronic (6) H/O ETOH abuse Status: Chronic (7) Hepatorenal syndrome Status: Chronic (8) Hyponatremia Status: Chronic Family History FH: CAD (coronary artery disease) FATHER Stroke MOTHER Social History Smoking Status: Light Tobacco Smoker Alcohol Use: Quit in November 2016. Previously a heavy drinker. Drug Use: none, other Marital Status: Housing status: lives with significant other Occupational Status: disabled Immunizations History of Influenza Vaccine: Yes Influenza Vaccine Date: Mar 02, 2017 History of Tetanus Vaccine?: Yes Tetanus Immunization Date: Jun 28, 2015 History of Pneumococcal: Yes Pneumococcal Date: Nov 23, 2009 History of Hepatitis B Vaccine: Yes Hepatitis Immunization Date: Apr 11, 2012 Allergies Coded Allergies: No Known Allergies (Verified , 09/09/17) Home Medications Scheduled Folic Acid (Folvite), 1 MG PO QAM Furosemide (Furosemide), 80 MG PO BID Lactulose (Chronulac), 15 GM PO QID Midodrine Hcl (Midodrine Hcl), 15 MG PO BID Pantoprazole (Pantoprazole Sodium), 40 MG PO BID Potassium Chloride Microencaps (Potassium Chloride Er), 20 MEQ PO BID Rifaximin (Xifaxan), 550 MG PO BID Spironolactone (Spironolactone), 100 MG PO DAILY Thiamine Hcl (Vitamin B-1), 100 MG PO Q24H Scheduled PRN Lorazepam (Lorazepam), 0.5 MG PO BID PRN for Anxiety Tramadol HCl (Tramadol HCl), 50 MG PO Q12 PRN for Pain Review of Systems Ten systems reviewed and negative except as noted in the HPI. Physical Exam Vital Signs Date Time Temp Pulse Resp B/P (MAP) Pulse Ox O2 Delivery O2 Flow Rate FiO2 09/24/17 19:32 103 18 122/55 97 Room Air 09/24/17 18:31 100 18 115/51 96 Room Air 09/24/17 17:40 99 21 112/43 98 Room Air 09/24/17 17:37 95 09/24/17 17:28 95 16 105/50 98 Room Air 09/24/17 16:41 36.6 98 20 88/51 98 Room Air General Appearance: WD/WN, no apparent distress Head: normocephalic, atraumatic Eyes: normal inspection, PERRL, + pertinent finding (scleral icterus ) ENT: normal ENT inspection, hearing grossly normal, pharynx normal (dry mucous membranes) Neck: supple, thyroid normal, trachea midline Respiratory/Chest: chest non-tender, lungs clear, no respiratory distress, no accessory muscle use, + crackles (faint bibasilar crackles ) Cardiovascular: no murmur, normal peripheral pulses, + tachycardia, + pertinent finding (3+ BLE pitting edema) Abdomen/GI: non tender, soft, + distended (+ fluid wave ) Back: normal inspection Extremities/Musculoskelatal: normal inspection, no calf tenderness, normal capillary refill Neurologic/Psych: no motor/sensory deficits, alert, normal mood/affect, oriented x 3 Skin: + jaundice, + pertinent finding (diffuse spider angioma) Diagnostics Laboratory Results Results Past 24 Hours Test 09/24/17 17:10 09/24/17 18:47 09/24/17 20:01 09/24/17 20:05 Range/Units White Blood Count 9.35 4.8-10.8 K/uL Red Blood Count 2.62 4.2-5.4 M/uL Hemoglobin 9.1 12.0-16.0 g/dL Hematocrit 26.0 37-47 % Mean Corpuscular Volume 99.2 80-100 fL Mean Corpuscular Hemoglobin 34.7 25-34 pg Mean Corpuscular Hemoglobin Concent 35.0 32-36 g/dl Platelet Count 275 130-400 K/uL Mean Platelet Volume 8.5 7.4-10.4 fL Neutrophils (%) (Auto) 73.6 % Lymphocytes (%) (Auto) 8.8 % Monocytes (%) (Auto) 15.0 % Eosinophils (%) (Auto) 1.0 % Basophils (%) (Auto) 0.3 % Neutrophils # (Auto) 6.89 1.4-6.5 K/uL Lymphocytes # (Auto) 0.82 1.2-3.4 K/uL Monocytes # (Auto) 1.40 0.11-0.59 K/uL Eosinophils # (Auto) 0.09 0-0.5 K/uL Basophils # (Auto) 0.03 0-0.2 K/uL RDW Standard Deviation 56.4 36.4-46.3 fL RDW Coefficient of Variation 15.5 11.5-14.5 % Immature Granulocyte % (Auto) 1.3 % Immature Granulocyte # (Auto) 0.12 0.00-0.02 K/uL Echinocytes 1+ Prothrombin Time 15.2 9.0-12.0 SECONDS Prothromb Time International Ratio 1.5 0.9-1.1 Activated Partial Thromboplast Time 39.3 21.0-31.0 SECONDS Partial Thromboplastin Ratio 1.5 Sodium Level 119 136-145 mmol/L Potassium Level 4.4 3.5-5.1 mmol/L Carbon Dioxide Level 18 21-32 mmol/L Anion Gap 13.0 3-11 mmol/L Blood Urea Nitrogen 21 7-18 mg/dl Creatinine 1.36 0.60-1.20 mg/dl Estimated GFR () 51.0 Estimated GFR (Non- 44.0 BUN/Creatinine Ratio 15.5 10-20 Random Glucose 91 70-99 mg/dl Calcium Level 8.7 8.5-10.1 mg/dl Magnesium Level 2.0 1.8-2.4 mg/dl Total Bilirubin 7.9 0.2-1 mg/dl Direct Bilirubin 4.3 0-0.2 mg/dl Aspartate Amino Transf (AST/SGOT) 55 15-37 U/L Alanine Aminotransferase (ALT/SGPT) 25 12-78 U/L Alkaline Phosphatase 216 45-117 U/L Total Protein 6.4 6.4-8.2 gm/dl Albumin 3.0 3.4-5.0 gm/dl Lipase 221 73-393 U/L Venous Blood pH 7.47 7.36-7.41 Venous Blood Partial Pressure CO2 29 38.0-50.0 mmHg Venous Blood Partial Pressure O2 40 mmHg Venous Blood HCO3 21 mmol/L Venous Blood Oxygen Saturation 75.4 % Venous Blood Base Excess -2.3 mEq/L Test 09/24/17 20:08 Range/Units Impression Assessment and Plan Patient is a 52-year-old with a past medical history of alcoholic cirrhosis ( with esophageal varices, ascites), chronic hypotension, chronic hyponatremia and other medical problems listed below who presents with worsening abdominal fullness. Decompensated alcoholic cirrhosis: - + Jaundice and ascites -No evidence of variceal bleeding, hepatic encephalopathy -Due for out-patient paracentesis with Dr. Funk tomorrow -Consult GI -Cont lactulose, rifaximin -Repeat CMP in AM Abdominal pain: -Likely 2/2 fullness -CT abd/pelvis to rule out infectious etiology -Procalcitonin pending Hypotension: improving -88/51 initially -Intravascularly dry on exam -Improved to 105/50 after 500cc bolus of NSS, albumin -Continue midodrine -Monitor on telemetry Hyponatremia: -Fatigue, generalized weakness -Acute on chronic in setting of cirrhosis -Na of 119 today -Baseline ~ 125 -Given 500cc bolus of NSS -Serum osm pending -Did not take home dose lasix or spironolactone today CKD III: -Cr of 1.36 (baseline low-mid 1s) -Avoid nephrotoxins when able Anemia of chronic disease: -Hgb of 9 today -At or slightly above baseline -Recheck CBC in AM GERD: -Cont PPI H/o etoh abuse: -Reports quitting in November 2016 -Cont folic acid, thiamine Code status: FULL PCP: [facility] Dispo: Admitted to telemetry. Plan to return home once medically stable. Patient seen in collaboration with Dr. Fowler. Please see addendum for further details of plan. Advanced Directives Existing Living Will: No Existing Power of Senior Scientist: No Resuscitation Status VTE Prophylaxis Will order VTE Prophylaxis: Yes Assessment/Plan IM ATTENDING : Patient seen and examined. History obtained per patient and records. Preceding documentation by Ms. Mel Burkett PA-C reviewed. In addition, CT abdomen and pelvis showed anasarca with large right pleural effusion, cholelithiasis, cirrhotic liver. FINAL ASSESSMENT AND PLAN as follows : 1. Decompensated cirrhosis history of alcoholic cirrhosis. Past alcohol abuse. 2. Acute on chronic hyponatremia secondary to above. Acute renal failure. Clinical dehydration. Patient intravascularly dry despite notable signs of third spacing from chronic liver disease. 3. Chronic anemia, hemoglobin at baseline. 4. Orthostatic hypotension on midodrine. 5. Ongoing tobacco abuse. PLAN: PCU Utilize IV albumin for fluid resuscitation for now GI consult RE decompensated cirrhosis. Diagnostic and therapeutic paracentesis in a.m. Baseline UA, monitor sodium, daily renal function, hyponatremia labs Fluid restriction. Nephrology consult RE acute on chronic hyponatremia. Patient counseled to stop smoking. DVT prophylaxis, SCDs. RE hx GI bleed, episodic thrombocytopenia secondary to chronic liver disease Full code.
--- NOTE | 2017-09-24 21:08 | DIAGNOSTIC IMAGING REPORT ---
ABDOMEN AND PELVIS CT WITHOUT CONTRAST CT DOSE: 729.28 mGy.cm HISTORY: Right-sided abdominal pain. TECHNIQUE: Multiaxial CT images of the abdomen and pelvis were performed without contrast. A dose lowering technique was utilized adhering to the principles of ALARA. COMPARISON STUDY: Abdomen and pelvis CT 02/02/2017. FINDINGS: Large left pleural effusion completely occupying the left lung base and resulting in compressive atelectasis of the left lower lobe. No pneumoperitoneum. No pneumatosis. Old left pubic ring fractures are again noted. Old, healed left-sided rib fractures. Cirrhotic and atrophic liver is again noted. A few small stones within the gallbladder. The spleen, pancreas, adrenal glands, and kidneys are unremarkable. No retroperitoneal lymphadenopathy. Moderate body wall edema. The omentum and mesentery appears diffusely edematous. The bladder, uterus, and adnexa are unremarkable. Suboptimal evaluation for bowel pathology due to the lack of intravenous and oral contrast. However, there is no definite bowel wall thickening or obstruction. Normal appendix. Calcifications in the deep pelvis are consistent with phleboliths. Large volume ascites. IMPRESSION: 1. Anasarca with a large amount of ascites and a large left pleural effusion. 2. No definite bowel wall thickening or obstruction. 3. Normal appendix. 4. Cholelithiasis. 5. Cirrhotic liver. Electronically signed by: Michael De Leon M.D. 09/24/2017 9:07 PM Dictated Date/Time: 09/24/2017 8:59 PM
[2017-09-24 21:23] LABS: CALCIUM 8.7 mg/dl (8.5-10.1); CREATININE 1.22 mg/dl (0.60-1.20); POTASSIUM 4.4 mmol/L (3.5-5.1)
[2017-09-24 21:50] VITALS: BP 115/55; PULSE 102; TEMP 36.8; O2SAT 95
[2017-09-24] MEDS ORDERED: LACTULOSE SYRUP 10 GM/15 ML BTL 473 ML PO ONE (23:03)
[2017-09-24] MEDS ORDERED: RIFAXIMIN TAB 550 MG TAB PO ONE (23:03)
[2017-09-24] MEDS ORDERED: HYDROmorphone INJ 0.5 MG/0.5 ML SYR IV PRN (23:15)
[2017-09-24] MEDS ORDERED: PROCHLORPERAZINE INJ 5 MG in SYRINGE 4 ML IV PRN (23:15)
[2017-09-24] MEDS ORDERED: ACETAMINOPHEN 325 MG TAB PO PRN (23:15)
[2017-09-24 23:42] VITALS: BP 112/59; PULSE 102; TEMP 36.9; O2SAT 94
[2017-09-24] MEDS: ALBUMIN HUMAN 25% 12.5 GM/50 ML VIAL IV SCH (23:50)
[2017-09-24] MEDS: THIAMINE HCL 100 MG TAB PO SCH (23:50)
[2017-09-24] MEDS: LORAZEPAM 0.5 MG TAB PO PRN (23:55)
[2017-09-25] MEDS: TRAMADOL HCL 50 MG TAB PO PRN ×3 (01:19→17:32)
[2017-09-25] MEDS ORDERED: MIDODRINE 10 MG TAB PO ONE (02:29)
[2017-09-25 03:54] VITALS: BP 114/63; PULSE 106; TEMP 36.9; O2SAT 93
[2017-09-25 04:41] LABS: OSMOLALITY,URINE 338 mOms/kg (500-800)
--- NOTE | 2017-09-25 04:43 | HISTORY & PHYSICAL EXAMINATION ---
DATE OF ADMISSION: 09/24/2017 IM ATTENDING : Patient seen and examined. History obtained per patient and records. Preceding documentation by Ms. Mel Burkett PA-C reviewed. In addition, CT abdomen and pelvis showed anasarca with large right pleural effusion, cholelithiasis, cirrhotic liver. FINAL ASSESSMENT AND PLAN as follows : 1. Decompensated cirrhosis history of alcoholic cirrhosis. Past alcohol abuse. 2. Acute on chronic hyponatremia secondary to above. Acute renal failure. Clinical dehydration. Patient intravascularly dry despite notable signs of third spacing from chronic liver disease. 3. Chronic anemia, hemoglobin at baseline. 4. Orthostatic hypotension on midodrine. 5. Ongoing tobacco abuse. PLAN: PCU Utilize IV albumin for fluid resuscitation for now GI consult RE decompensated cirrhosis. Diagnostic and therapeutic paracentesis in a.m. Baseline UA, monitor sodium, daily renal function, hyponatremia labs Fluid restriction. Nephrology consult RE acute on chronic hyponatremia. Patient counseled to stop smoking. DVT prophylaxis, SCDs. RE hx GI bleed, episodic thrombocytopenia secondary to chronic liver disease Full code. MTDD
[2017-09-25 04:45] LABS: SODIUM RANDOM URINE < 5 mEq/L
[2017-09-25] MEDS: ALBUMIN HUMAN 25% 12.5 GM/50 ML VIAL IV SCH ×3 (06:05→17:30)
[2017-09-25 07:19] LABS: HEMATOCRIT 21.4 % (37-47); HEMOGLOBIN 7.6 g/dL (12.0-16.0); MEAN CELL VOLUME 98.2 fL (80-100); MEAN CORPUSCULAR HEMOGLOBIN 34.9 pg (25-34); MEAN CORPUSCULAR HGB CONC 35.5 g/dl (32-36); MEAN PLATELET VOLUME 8.3 fL (7.4-10.4); PLATELET COUNT 238 K/uL (130-400); RED CELL DISTRIBUTION WIDTH CV 15.7 % (11.5-14.5); RED CELL DISTRIBUTION WIDTH SD 56.9 fL (36.4-46.3); WHITE BLOOD COUNT 8.07 K/uL (4.8-10.8)
[2017-09-25 07:47] VITALS: BP 114/63; PULSE 95; TEMP 36.7; O2SAT 94
[2017-09-25 07:47] LABS: BASO % 0.2 %; BASO ABS # 0.02 K/uL (0-0.2); EOS % 2.1 %; EOS ABS # 0.17 K/uL (0-0.5); IG# 0.11 K/uL (0.00-0.02); LYMPH % 15.7 %; LYMPH ABS # 1.27 K/uL (1.2-3.4); MONO % 9.7 %; MONO ABS # 0.78 K/uL (0.11-0.59); NEUT % 70.9 %; NEUT ABS # 5.72 K/uL (1.4-6.5)
[2017-09-25 07:51] LABS: CALCIUM 8.9 mg/dl (8.5-10.1); CREATININE 1.23 mg/dl (0.60-1.20); POTASSIUM 4.5 mmol/L (3.5-5.1)
[2017-09-25] MEDS: MIDODRINE 10 MG TAB PO SCH ×2 (08:14→17:30)
[2017-09-25] MEDS: PANTOprazole SOD 40 MG TAB PO SCH ×2 (08:15→20:35)
[2017-09-25] MEDS: RIFAXIMIN TAB 550 MG TAB PO SCH ×2 (08:16→20:36)
[2017-09-25] MEDS: LACTULOSE SYRUP 10 GM/15 ML BTL 473 ML PR SCH ×4 (08:16→20:35)
[2017-09-25] MEDS: LORAZEPAM 0.5 MG TAB PO PRN ×2 (08:21→20:42)
--- NOTE | 2017-09-25 08:37 | NEPHROLOGY CONSULTATION ---
DATE OF CONSULTATION: 09/25/2017 ATTENDING OF RECORD: Dr. Haley. REASON FOR CONSULTATION: Hyponatremia. HISTORY OF PRESENT ILLNESS: This is a 52-year-old female who has had multiple hospitalizations for her recurrent hyponatremia and volume overload in the setting of cirrhosis. The patient does get paracentesis once every 2 weeks, last paracentesis was about 16 days ago. The patient's abdomen has become more distended recently. Electrolytes showing a low sodium of 119, blood pressure on presentation was low at 88/51, was given a liter of fluid and blood pressure is now up into the 114/63 range. The patient is currently n.p.o. for a tentatively scheduled paracentesis today. PAST MEDICAL HISTORY/SURGICAL HISTORY: Alcoholic cirrhosis with esophageal varices, history of chronic hyponatremia, GERD. FAMILY HISTORY: Significant for heart disease. SOCIAL HISTORY: Social smoker, quit alcohol in 11/2016, no drugs. Lives with at home. HOME MEDICATIONS: Significant for midodrine 15 mg p.o. b.i.d., spironolactone 100 mg daily as well as Lasix 80 mg p.o. b.i.d. REVIEW OF SYSTEMS: No headaches, no blurry vision, no dysphagia, no chest pain, no shortness of breath. No nausea or vomiting. No diarrhea or constipation. No dysuria or hematuria. Does have abdominal distention; however, no other associated symptoms. CURRENT MEDICATIONS: Folic acid 1 mg daily, lactulose 15 grams 4 times a day, Protonix 40 mg p.o. b.i.d., rifaximin 550 mg p.o. b.i.d., midodrine 15 mg p.o. b.i.d., albumin 12.5 grams IV q. 6, thiamine 100 mg p.o. daily. PHYSICAL EXAMINATION: VITAL SIGNS: Temperature 36.7, pulse 95, respiratory rate is 18, blood pressure 114/63, satting 94% on room air. GENERAL: Awake, alert, oriented x3. EYES: The patient does have scleral icterus. ENT: Moist mucous membranes. NECK: Supple. PULMONARY: Decreased breath sounds at the bases. CARDIAC: Tachycardia. ABDOMEN: Significantly distended, nontender. EXTREMITIES: Mild edema. NEUROLOGIC: Nonfocal. DERMATOLOGIC: Mild jaundice. LABORATORY DATA: White count is 8, H&H 7.6 and 21.4, platelet count is 238. Sodium level is up to 128, potassium 4.5, chloride is 90, bicarbonate is 21, BUN is 23, creatinine is 1.23, glucose 77. Lactic acid is 1.3. Calcium is 8.9. Procalcitonin 0.24. Ethanol negative. INR is 1.5. Urine osmolality 338, urine random sodium less than 5. IMPRESSION AND PLAN: Hyponatremia. The patient's volume status overall is volume overload in the setting of alcoholic cirrhosis; however, blood pressures were low on presentation, was given normal saline on admission to help with blood pressures. Blood pressures have stabilized. The patient is tentatively scheduled for a paracentesis today. I would normally do fluid restriction with Lasix for this hyponatremia secondary to volume overload; however, given the fact that the patient is undergoing paracentesis today, will do the fluid restriction and follow the sodium levels and adjust meds accordingly. Hopefully, sodium levels will start to trend back up again. The patient is at risk for hepatorenal syndrome. Creatinines have worsened in the past but tend to improve with albumin, midodrine and octreotide. Random urine sodium was less than 5, indicating poor perfusion to the kidneys. Currently on albumin which should help improve perfusion. So far, creatinine is stable; however, we will monitor for TRACY during this admission. The patient is relatively asymptomatic. Hopefully, sodium levels will improve with continued fluid restriction and removal of fluid through the paracentesis. If sodium level is greater than 125, okay from a renal perspective to go home. I appreciate the consultation. CAROL
--- NOTE | 2017-09-25 10:17 | DIAGNOSTIC IMAGING REPORT ---
CHEST ONE VIEW PORTABLE CLINICAL HISTORY: anasarca, cirrhosis, volume overload COMPARISON STUDY: Chest radiograph July 30, 2017. FINDINGS: There is no pneumothorax. A large left pleural effusion has increased in size since exam of July 30, 2017 and occupies approximately 70% of the left hemithorax. Right lung is clear. There is no radiographic evidence of pulmonary edema. Incompletely healed right humeral neck fracture is noted. There are old left-sided rib fractures. IMPRESSION: 1. Increase in size of a large left pleural effusion. 2. No radiographic evidence of pulmonary edema. Electronically signed by: Ruben Matos M.D. 09/25/2017 10:15 AM Dictated Date/Time: 09/25/2017 10:14 AM
--- NOTE | 2017-09-25 11:32 | Gastrointestinal Consultation ---
Gastrointestinal Consultation Date of Consultation: Sep 25, 2017 Attending Physician: Dr. Haley; consult from Dr. Gracia Consulting Physician: Dr. Colón Reason for Consultation: Cirrhosis History of Present Illness Patient is a 52 year old female with alcoholic cirrhosis and depression presented to the ED yesterday for dizziness. GI is consulted for cirrhosis. Regarding her hx of cirrhosis, this was caused by previously increased alcohol intake now with abstention for >6 months. Her cirrhosis is complicated by hepatic encephalopathy, history of esophageal varices, status post banding and chronic hyponatremia. She has recently been listed for liver transplant at [facility]. Regarding this illness, she tells me that she had been dizzy beginning 4 days ago, but travelled to [place] to visit with her sister over [facility]. She presented to the ED yesterday for the dizziness as well as an enlarging abdominal girth yesterday on her return from her trip. She denies any GI bleeding. She is uncomfortable from enlarging ascites but denies SOB, CP or cough. On arrival, Na 119 (today 120), Cr1.23, Hb 7.6. She is jaundiced, with total bilirubin 7.9. She is awake, alert, oriented. CT with IV contrast with anasarca , w/o liver lesions or biliary ductal dilation. Decompensations: Varices: yes, maintained on Protonix 40mg BID. Ascites: yes, maintained on lasix 80 mg QAM, 40mg QPM, Midodrine 5mg three tabs TID, and spironolactone 25mg 2 tabs BID. Hepatic encephalopathy: yes, maintained on Xifaxin 550mg BID and Lactulose 30ml TID. Screenings: EGD: Most recent EGD 08/05/17: Grade I EV, Schatzi Ring, Moderate PHG, GAVE HCC: CT with IV contrast 09/24/17 no discrete liver lesion Chest XR: obtained, no results available as of yet. Blood/urine Cx: ordered. Paracentesis: ordered, scheduled for 1 PM, with cell fluid and count ordered. Past Medical/Surgical History Medical Problems: (1) Abdominal pain Status: Acute (2) Abdominal pain, left upper quadrant Status: Acute (3) Acute renal failure (ARF) Status: Acute (4) Alcoholic cirrhosis of liver with ascites Status: Acute (5) Anasarca Status: Acute (6) Ascites Status: Acute (7) Cirrhosis Status: Acute (8) Closed fracture of right proximal humerus Status: Acute (9) Diarrhea Status: Acute (10) Elevated blood pressure reading Status: Acute (11) Fall from ladder Status: Acute (12) GI bleed Status: Acute (13) Hypoalbuminemia Status: Acute (14) Hypokalemia Status: Acute (15) Hyponatremia Status: Acute (16) Hyponatremia Status: Acute (17) Hyponatremia Status: Acute (18) Hypotension Status: Acute (19) Liver failure Status: Acute (20) Syncope Status: Acute Past Medical History: 1. Alcoholic cirrhosis with varices, 2. Depression 3. GERD 4. Hepatorenal syndrome 5. Hyponatremia Past Surgical History: 1. Multiple paracentesis. 2. EGD, most recently 08/05/[address] Colón 08/05/17: PHG, GAVE, Grade I EV 3. Colonoscopy, most recently 2009, diverticulosis, otherwise normal. Family History FH: CAD (coronary artery disease) FATHER Stroke MOTHER Social History Smoking Status: Light Tobacco Smoker Alcohol Use: heavy Drug Use: none, other Marital Status: Housing Status: lives with family Occupation Status: disabled Allergies Coded Allergies: No Known Allergies (Verified , 09/09/17) Current Medications Home Meds and Scripts Medications Dose Route/Sig Max Daily Dose Days Date Category Vitamin B-1 (Thiamine HCl) 100 Mg Tab 100 Mg PO Q24H 09/24/17 Reported Folvite (Folic Acid) 1 Mg Tab 1 Mg PO QAM 09/24/17 Reported Tramadol HCl 50 Mg Tab 50 Mg PO Q12 PRN 09/24/17 Reported Pantoprazole Sodium (Pantoprazole) 40 Mg Tab 40 Mg PO BID 09/24/17 Reported Furosemide 40 Mg Tab 80 Mg PO BID 09/24/17 Reported Spironolactone 100 Mg Tab 100 Mg PO DAILY 09/24/17 Reported Xifaxan (Rifaximin) 550 Mg Tab 550 Mg PO BID 09/24/17 Reported Chronulac (Lactulose) 10 Gm/15 Ml Syrp 15 Gm PO QID 09/24/17 Reported Midodrine Hcl 5 Mg Tab 15 Mg PO BID 09/24/17 Reported Potassium Chloride Er (Potassium Chloride Microencaps) 20 Meq Tab 20 Meq PO BID 09/24/17 Reported Lorazepam 0.5 Mg Tab 0.5 Mg PO BID PRN 09/24/17 Reported Review of Systems Constitutional: + weakness, + fatigue Eyes: No worsening of vision ENT: No hearing loss Respiratory: No cough Cardiac: No chest pain Abdomen: + problem reported (enlarging ascites), No pain, No GI bleeding Musculoskeletal: No joint pain Female : No dysuria Neuro: No memory loss Psych: No depression symptoms Heme: No abnormal bleeding/bruising Endo: No fatigue Skin: + jaundice, No rash Physical Exam Date Time Temp Pulse Resp B/P (MAP) Pulse Ox O2 Delivery O2 Flow Rate FiO2 09/25/17 08:00 Room Air 09/25/17 07:47 36.7 95 18 114/63 (80) 94 Room Air 09/25/17 04:00 Room Air 09/25/17 03:54 36.9 106 16 114/63 (80) 93 Room Air 09/25/17 00:00 Room Air 09/24/17 23:42 36.9 102 16 112/59 (76) 94 Room Air 09/24/17 21:50 36.8 102 26 115/55 (75) 95 Room Air 09/24/17 21:45 105 22 98/54 95 Room Air 09/24/17 20:02 36.8 102 26 115/55 Room Air 09/24/17 19:32 103 18 122/55 97 Room Air 09/24/17 18:31 100 18 115/51 96 Room Air 09/24/17 17:40 99 21 112/43 98 Room Air 09/24/17 17:37 95 09/24/17 17:28 95 16 105/50 98 Room Air 09/24/17 16:41 36.6 98 20 88/51 98 Room Air General Appearance: no apparent distress Eyes: normal inspection, EOMI Neck: supple, no adenopathy, thyroid normal, no JVD Respiratory/Chest: chest non-tender, lungs clear, normal breath sounds, no accessory muscle use, + decreased breath sounds (in the left base) Cardiovascular: regular rate, rhythm, no JVD, + systolic murmur (2/6) Abdomen: normal bowel sounds, non tender, soft, no organomegaly Extremities: normal inspection, normal capillary refill, + pertinent finding (1 /2+ edema both lower legs, to just below the knees) Neurologic/Psych: alert, normal mood/affect, oriented x 3 Skin: normal color, no jaundice, warm/dry, no rash Laboratory Results Last 24 Hours Test 09/24/17 17:10 09/24/17 18:47 09/24/17 20:34 09/25/17 03:45 White Blood Count 9.35 K/uL Red Blood Count 2.62 M/uL Hemoglobin 9.1 g/dL Hematocrit 26.0 % Mean Corpuscular Volume 99.2 fL Mean Corpuscular Hemoglobin 34.7 pg Mean Corpuscular Hemoglobin Concent 35.0 g/dl Platelet Count 275 K/uL Mean Platelet Volume 8.5 fL Neutrophils (%) (Auto) 73.6 % Lymphocytes (%) (Auto) 8.8 % Monocytes (%) (Auto) 15.0 % Eosinophils (%) (Auto) 1.0 % Basophils (%) (Auto) 0.3 % Neutrophils # (Auto) 6.89 K/uL Lymphocytes # (Auto) 0.82 K/uL Monocytes # (Auto) 1.40 K/uL Eosinophils # (Auto) 0.09 K/uL Basophils # (Auto) 0.03 K/uL RDW Standard Deviation 56.4 fL RDW Coefficient of Variation 15.5 % Immature Granulocyte % (Auto) 1.3 % Immature Granulocyte # (Auto) 0.12 K/uL Echinocytes 1+ Prothrombin Time 15.2 SECONDS Prothromb Time International Ratio 1.5 Activated Partial Thromboplast Time 39.3 SECONDS Partial Thromboplastin Ratio 1.5 Sodium Level 119 mmol/L 119 mmol/L Potassium Level 4.4 mmol/L 4.4 mmol/L Carbon Dioxide Level 18 mmol/L 20 mmol/L Anion Gap 13.0 mmol/L 9.0 mmol/L Blood Urea Nitrogen 21 mg/dl 21 mg/dl Creatinine 1.36 mg/dl 1.22 mg/dl Estimated GFR () 51.0 58.2 Estimated GFR (Non- 44.0 50.2 BUN/Creatinine Ratio 15.5 17.0 Random Glucose 91 mg/dl 83 mg/dl Calcium Level 8.7 mg/dl 8.7 mg/dl Magnesium Level 2.0 mg/dl Total Bilirubin 7.9 mg/dl Direct Bilirubin 4.3 mg/dl Aspartate Amino Transf (AST/SGOT) 55 U/L Alanine Aminotransferase (ALT/SGPT) 25 U/L Alkaline Phosphatase 216 U/L Total Protein 6.4 gm/dl Albumin 3.0 gm/dl Lipase 221 U/L Thyroid Stimulating Hormone (TSH) 0.953 uIu/ml Venous Blood pH 7.47 Venous Blood Partial Pressure CO2 29 mmHg Venous Blood Partial Pressure O2 40 mmHg Venous Blood HCO3 21 mmol/L Venous Blood Oxygen Saturation 75.4 % Venous Blood Base Excess -2.3 mEq/L Chloride Level 90 mmol/L Est Creatinine Clear Calc Drug Dose 54.3 ml/min Osmolality 251 mOsm/kg Lactic Acid Level 1.3 mmol/L Procalcitonin 0.24 ng/ml Ethyl Alcohol mg/dL < 3.0 mg/dl Urine Color DK YELLOW Urine Appearance CLEAR Urine pH 5.0 Urine Specific [place] 1.016 Urine Protein NEG Urine Glucose (UA) NEG Urine Ketones NEG Urine Occult Blood NEG Urine Nitrite NEG Urine Bilirubin 1+ Urine Urobilinogen NEG Urine Leukocyte Esterase TRACE Urine WBC (Auto) 1-5 /hpf Urine RBC (Auto) 0-4 /hpf Urine Hyaline Casts (Auto) 5-10 /lpf Urine Epithelial Cells (Auto) >30 /lpf Urine Bacteria (Auto) NEG Urine Osmolality 338 mOms/kg Urine Random Sodium < 5 mEq/L Urine Test NEG Test 09/25/17 06:46 White Blood Count 8.07 K/uL Red Blood Count 2.18 M/uL Hemoglobin 7.6 g/dL Hematocrit 21.4 % Mean Corpuscular Volume 98.2 fL Mean Corpuscular Hemoglobin 34.9 pg Mean Corpuscular Hemoglobin Concent 35.5 g/dl Platelet Count 238 K/uL Mean Platelet Volume 8.3 fL Neutrophils (%) (Auto) 70.9 % Lymphocytes (%) (Auto) 15.7 % Monocytes (%) (Auto) 9.7 % Eosinophils (%) (Auto) 2.1 % Basophils (%) (Auto) 0.2 % Neutrophils # (Auto) 5.72 K/uL Lymphocytes # (Auto) 1.27 K/uL Monocytes # (Auto) 0.78 K/uL Eosinophils # (Auto) 0.17 K/uL Basophils # (Auto) 0.02 K/uL RDW Standard Deviation 56.9 fL RDW Coefficient of Variation 15.7 % Immature Granulocyte % (Auto) 1.4 % Immature Granulocyte # (Auto) 0.11 K/uL Echinocytes 1+ Sodium Level 120 mmol/L Potassium Level 4.5 mmol/L Chloride Level 90 mmol/L Carbon Dioxide Level 21 mmol/L Anion Gap 8.0 mmol/L Blood Urea Nitrogen 23 mg/dl Creatinine 1.23 mg/dl Est Creatinine Clear Calc Drug Dose 53.5 ml/min Estimated GFR () 57.6 Estimated GFR (Non- 49.7 BUN/Creatinine Ratio 18.5 Random Glucose 77 mg/dl Calcium Level 8.9 mg/dl CT abd/pelvis with IV contrast 09/24/17: 1. Anasarca with a large amount of ascites and a large left pleural effusion. 2. No definite bowel wall thickening or obstruction. 3. Normal appendix. 4. Cholelithiasis. 5. Cirrhotic liver. CXR: 1. Increase in size of a large left pleural effusion. 2. No radiographic evidence of pulmonary edema. Impression Patient is a 52 year old female with ETOH cirrhosis, abstaining > 6months, listed for liver transplant. She is admitted in fluid overload, with increasing ascites, dizziness, worsening liver function (bili7.9) and worsening renal function on admission, now slightly improved (Cr1.36 yesterday, 1.23 today). Her MELD score today is 29. Plan 1. I spoke with the liver change control coordinator at [facility]: Lauren Martines RN who recommends transfer to [facility] pending possible liver transplant - or if no liver available, for management there. Appreciate primary hospitalist service arranging transport. 2. In the interim, if unable to transfer quickly, agree with: Albumin 12.5grams Q8hrs IV Diagnostic paracentesis with no more than 5Liters removed. Check fluid for cell count and culture. Would hold on blood transfusion unless Hb drops further or if pt has gross GI bleeding. Blood cultures, urine cultures. 3. Appreciate Nephrology input/management of IV fluids, diuretics. 4. Continue Rifampin, lactulose, Protonix BID. 5. Will continue to follow closely. I have seen , examined and agree with the plan as outlined by WILBERT Velarde as above. -exam reveals soft abd -High MELD, [facility] center would like to accept in transfer -IVF, correction of Na via Nephrology and appreciate assistance -Paracentesis to r/o SBP
[2017-09-25 11:43] VITALS: BP 128/56; PULSE 90; TEMP 36.5; O2SAT 96
--- NOTE | 2017-09-25 13:55 | DIAGNOSTIC IMAGING REPORT ---
PARACENTESIS UNDER ULTRASOUND GUIDANCE CLINICAL HISTORY: ascites COMPARISON STUDY: 09/09/2017 FINDINGS: The risks, benefits, and alternatives to the procedure were discussed with the patient. Written informed consent was obtained. Following real-time ultrasound localization, the skin was prepped and draped. Following local anesthesia with Xylocaine, the sheath paracentesis needle was inserted and approximately 3 liters of straw-colored fluid was removed by vacuum suction. There is considerable residual ascites. Additional ascitic fluid was not removed at the specific request of the referring clinician. The patient tolerated the procedure well and left the department in satisfactory condition. IMPRESSION: Successful ultrasound-guided paracentesis with removal of approximately 3 liters of ascitic fluid. Electronically signed by: Manuel Lou M.D. 09/25/2017 1:54 PM Dictated Date/Time: 09/25/2017 1:53 PM
[2017-09-25 15:01] VITALS: BP 107/53; PULSE 112; TEMP 36.7; O2SAT 96
[2017-09-25 18:50] VITALS: BP 111/51; PULSE 116; TEMP 36.9; O2SAT 95
--- NOTE | 2017-09-25 18:50 | Progress Note ---
Medicine Progress Note Date & Time of Visit: Sep 25, 2017 at 18:42. Subjective 52-year-old female with chronic alcoholic cirrhosis presents with decompensated cirrhosis. Patient reports abdominal fullness and discomfort developed over the last couple of days. Denies any fevers or chills. Tolerating p.o. Ambulating at baseline. Objective Last 8 Hrs Date Time Temp Pulse Resp B/P (MAP) Pulse Ox O2 Delivery O2 Flow Rate FiO2 09/25/17 16:00 Room Air 09/25/17 15:01 36.7 112 18 107/53 (71) 96 Room Air 09/25/17 12:00 Room Air 09/25/17 11:43 36.5 90 20 128/56 (80) 96 Room Air Physical Exam: GEN: obese, in no acute distress, alert and appropriate, jaundiced HEENT: NC/AT, PERRL, +scleral icterus CARDIO: reg rate, S1/2 heard without m/g/r LUNGS: CTA bilaterally, no crackles, rales or wheezes, good diaphragmatic excursion ABD: soft, protuberant with positive fluid wave, non-tender, non-distended, no rebound or guarding, +BS EXTREMITY: RP and DP palpable 2+ bilat, no LE swelling or edema, extremities are warm and well-perfused NEURO: CN 2-12 grossly intact MUSC: ambulatory, no gross focal deficits. SKIN: warm and dry, jaundiced. Laboratory Results: 09/25/17 06:46 Red Blood Count 2.18, Mean Corpuscular Volume 98.2, Mean Corpuscular Hemoglobin 34.9, Mean Corpuscular Hemoglobin Concent 35.5, Mean Platelet Volume 8.3, Neutrophils (%) (Auto) 70.9, Lymphocytes (%) (Auto) 15.7, Monocytes (%) (Auto) 9.7, Eosinophils (%) (Auto) 2.1, Basophils (%) (Auto) 0.2, Neutrophils # (Auto) 5.72, Lymphocytes # (Auto) 1.27, Monocytes # (Auto) 0.78, Eosinophils # (Auto) 0.17, Basophils # (Auto) 0.02 09/25/17 06:46 09/25/17 18:07 Test 09/24/17 17:10 09/24/17 18:47 09/24/17 20:34 09/25/17 03:45 Prothrombin Time 15.2 SECONDS (9.0-12.0) Prothromb Time International Ratio 1.5 (0.9-1.1) Activated Partial Thromboplast Time 39.3 SECONDS (21.0-31.0) Partial Thromboplastin Ratio 1.5 Magnesium Level 2.0 mg/dl (1.8-2.4) Total Bilirubin 7.9 mg/dl (0.2-1) Direct Bilirubin 4.3 mg/dl (0-0.2) Aspartate Amino Transf (AST/SGOT) 55 U/L (15-37) Alanine Aminotransferase (ALT/SGPT) 25 U/L (12-78) Alkaline Phosphatase 216 U/L (45-117) Total Protein 6.4 gm/dl (6.4-8.2) Albumin 3.0 gm/dl (3.4-5.0) Lipase 221 U/L (73-393) Thyroid Stimulating Hormone (TSH) 0.953 uIu/ml (0.300-4.500) Venous Blood pH 7.47 (7.36-7.41) Venous Blood Partial Pressure CO2 29 mmHg (38.0-50.0) Venous Blood Partial Pressure O2 40 mmHg Venous Blood HCO3 21 mmol/L Venous Blood Oxygen Saturation 75.4 % Venous Blood Base Excess -2.3 mEq/L Osmolality 251 mOsm/kg (280-300) Lactic Acid Level 1.3 mmol/L (0.4-2.0) Procalcitonin 0.24 ng/ml (0-0.5) Ethyl Alcohol mg/dL < 3.0 mg/dl (0-3) Urine Color DK YELLOW Urine Appearance CLEAR (CLEAR) Urine pH 5.0 (4.5-7.5) Urine Specific [place] 1.016 (1.000-1.030) Urine Protein NEG (NEG) Urine Glucose (UA) NEG (NEG) Urine Ketones NEG (NEG) Urine Occult Blood NEG (NEG) Urine Nitrite NEG (NEG) Urine Bilirubin 1+ (NEG) Urine Urobilinogen NEG (NEG) Urine Leukocyte Esterase TRACE (NEG) Urine WBC (Auto) 1-5 /hpf (0-5) Urine RBC (Auto) 0-4 /hpf (0-4) Urine Hyaline Casts (Auto) 5-10 /lpf (0-5) Urine Epithelial Cells (Auto) >30 /lpf (0-5) Urine Bacteria (Auto) NEG (NEG) Urine Osmolality 338 mOms/kg (500-800) Urine Random Sodium < 5 mEq/L Urine Test NEG (NEG) Test 09/25/17 06:46 09/25/17 13:57 White Blood Count 8.07 K/uL (4.8-10.8) Red Blood Count 2.18 M/uL (4.2-5.4) Hemoglobin 7.6 g/dL (12.0-16.0) Hematocrit 21.4 % (37-47) Mean Corpuscular Volume 98.2 fL (80-100) Mean Corpuscular Hemoglobin 34.9 pg (25-34) Mean Corpuscular Hemoglobin Concent 35.5 g/dl (32-36) Platelet Count 238 K/uL (130-400) Mean Platelet Volume 8.3 fL (7.4-10.4) Neutrophils (%) (Auto) 70.9 % Lymphocytes (%) (Auto) 15.7 % Monocytes (%) (Auto) 9.7 % Eosinophils (%) (Auto) 2.1 % Basophils (%) (Auto) 0.2 % Neutrophils # (Auto) 5.72 K/uL (1.4-6.5) Lymphocytes # (Auto) 1.27 K/uL (1.2-3.4) Monocytes # (Auto) 0.78 K/uL (0.11-0.59) Eosinophils # (Auto) 0.17 K/uL (0-0.5) Basophils # (Auto) 0.02 K/uL (0-0.2) RDW Standard Deviation 56.9 fL (36.4-46.3) RDW Coefficient of Variation 15.7 % (11.5-14.5) Immature Granulocyte % (Auto) 1.4 % Immature Granulocyte # (Auto) 0.11 K/uL (0.00-0.02) Echinocytes 1+ Anion Gap 8.0 mmol/L (3-11) Est Creatinine Clear Calc Drug Dose 53.5 ml/min Estimated GFR () 57.6 Estimated GFR (Non- 49.7 BUN/Creatinine Ratio 18.5 (10-20) Calcium Level 8.9 mg/dl (8.5-10.1) Peritoneal Fluid Color YELLOW Peritoneal Fluid Appearance CLEAR Peritoneal Fluid WBC 38 /uL (0-300) Peritoneal Fluid RBC < 3000 /uL Peritoneal Fld Mononuclear WBCs (%) 80.0 % Peritoneal Fld Polynuclear WBCs (%) 20.0 % Peritoneal Fluid Total Protein 0.7 g/dl Peritoneal Fluid Albumin < 0.6 g/dl Peritoneal Fluid LDH 22 IU Peritoneal Fluid Glucose 87 mg/dl Date/Time Source Procedure Growth Status 09/25/17 10:36 Blood Blood Culture Pending Received 09/25/17 13:57 Ascities Fluid Gram Stain Pending Received 09/25/17 13:57 Ascities Fluid Bacterial Culture Pending Received Last 24 Hours Test 09/24/17 18:47 09/24/17 20:34 09/25/17 03:45 09/25/17 06:46 Venous Blood pH 7.47 Venous Blood Partial Pressure CO2 29 mmHg Venous Blood Partial Pressure O2 40 mmHg Venous Blood HCO3 21 mmol/L Venous Blood Oxygen Saturation 75.4 % Venous Blood Base Excess -2.3 mEq/L Sodium Level 119 mmol/L 120 mmol/L Potassium Level 4.4 mmol/L 4.5 mmol/L Chloride Level 90 mmol/L 90 mmol/L Carbon Dioxide Level 20 mmol/L 21 mmol/L Anion Gap 9.0 mmol/L 8.0 mmol/L Blood Urea Nitrogen 21 mg/dl 23 mg/dl Creatinine 1.22 mg/dl 1.23 mg/dl Est Creatinine Clear Calc Drug Dose 54.3 ml/min 53.5 ml/min Estimated GFR () 58.2 57.6 Estimated GFR (Non- 50.2 49.7 BUN/Creatinine Ratio 17.0 18.5 Random Glucose 83 mg/dl 77 mg/dl Osmolality 251 mOsm/kg Lactic Acid Level 1.3 mmol/L Calcium Level 8.7 mg/dl 8.9 mg/dl Procalcitonin 0.24 ng/ml Ethyl Alcohol mg/dL < 3.0 mg/dl Urine Color DK YELLOW Urine Appearance CLEAR Urine pH 5.0 Urine Specific [place] 1.016 Urine Protein NEG Urine Glucose (UA) NEG Urine Ketones NEG Urine Occult Blood NEG Urine Nitrite NEG Urine Bilirubin 1+ Urine Urobilinogen NEG Urine Leukocyte Esterase TRACE Urine WBC (Auto) 1-5 /hpf Urine RBC (Auto) 0-4 /hpf Urine Hyaline Casts (Auto) 5-10 /lpf Urine Epithelial Cells (Auto) >30 /lpf Urine Bacteria (Auto) NEG Urine Osmolality 338 mOms/kg Urine Random Sodium < 5 mEq/L Urine Test NEG White Blood Count 8.07 K/uL Red Blood Count 2.18 M/uL Hemoglobin 7.6 g/dL Hematocrit 21.4 % Mean Corpuscular Volume 98.2 fL Mean Corpuscular Hemoglobin 34.9 pg Mean Corpuscular Hemoglobin Concent 35.5 g/dl Platelet Count 238 K/uL Mean Platelet Volume 8.3 fL Neutrophils (%) (Auto) 70.9 % Lymphocytes (%) (Auto) 15.7 % Monocytes (%) (Auto) 9.7 % Eosinophils (%) (Auto) 2.1 % Basophils (%) (Auto) 0.2 % Neutrophils # (Auto) 5.72 K/uL Lymphocytes # (Auto) 1.27 K/uL Monocytes # (Auto) 0.78 K/uL Eosinophils # (Auto) 0.17 K/uL Basophils # (Auto) 0.02 K/uL RDW Standard Deviation 56.9 fL RDW Coefficient of Variation 15.7 % Immature Granulocyte % (Auto) 1.4 % Immature Granulocyte # (Auto) 0.11 K/uL Echinocytes 1+ Test 09/25/17 12:00 09/25/17 13:57 09/25/17 18:07 Sodium Level 120 mmol/L 120 mmol/L Peritoneal Fluid Color YELLOW Peritoneal Fluid Appearance CLEAR Peritoneal Fluid WBC 38 /uL Peritoneal Fluid RBC < 3000 /uL Peritoneal Fld Mononuclear WBCs (%) 80.0 % Peritoneal Fld Polynuclear WBCs (%) 20.0 % Peritoneal Fluid Total Protein 0.7 g/dl Peritoneal Fluid Albumin < 0.6 g/dl Peritoneal Fluid LDH 22 IU Peritoneal Fluid Glucose 87 mg/dl Date/Time Source Procedure Growth Status 09/25/17 10:36 Blood Blood Culture Pending Received 09/25/17 10:30 Blood Blood Culture Pending Received 09/25/17 13:57 Ascities Fluid Gram Stain Pending Received 09/25/17 13:57 Ascities Fluid Bacterial Culture Pending Received Assessment & Plan 52-year-old female with chronic alcoholic cirrhosis presents with decompensated cirrhosis. Patient reports abdominal fullness and discomfort developed over the last couple of days. Denies any fevers or chills. Tolerating p.o. Ambulating at baseline. 1. Decompensated cirrhosis with ascites-patient reports abstinence from alcohol and is on transplant list. Per GI evaluation patient should be urgently transferred to acute tertiary care facility. Accepting physician at [facility] was Dr. rob-hospitalist. Still awaiting transfer. In the meantime patient is receiving 12 g of IV albumin every 6 hours with sodium frequently monitored. She is not on Lasix at this time as sodium is 120. Spironolactone was also held on admission. Nephrology is following. Continue fluid restriction. Paracentesis results do not reveal evidence of SBP. 3 L ascitic fluid were pulled off during paracentesis today. Will await transfer overnight. 2. Hyponatremia-secondary to fluid overloaded state and cirrhosis. Per nephrology recommendations continue IV albumin and hold Lasix. Continue fluid restriction. Continue serial sodium levels. 3. Chronic anemia-slight drop overnight possibly related to dilution from normal saline given in ER for low blood pressure. Continue fluid restriction and avoid any blood products at this time as patient is on transplant list and do not want to build up antibodies to foreign tissue. Will consider blood transfusion if patient has gross GI bleeding or hemodynamic instability. DVT prophylaxis-Lovenox Full code Disposition-transfer to [facility] DO Jann Warrenunc [facility] hospitalist Consultants: [facility] Current Inpatient Medications: Current Inpatient Medications Medications (Trade) Dose Ordered Sig/Betty Route Start Time Stop Time Status Last Admin Dose Admin Acetaminophen (Tylenol Tab) 325 mg Q6H PRN PO 09/24/17 23:15 10/24/17 23:14 Folic Acid (Folvite Tab) 1 mg QAM PO 09/25/17 09:00 10/25/17 08:59 09/25/17 08:15 1 MG Lactulose (Chronulac Syrup) 15 gm QID [place] 09/25/17 09:00 10/25/17 08:59 09/25/17 17:29 15 GM Lorazepam (Ativan Tab) 0.5 mg BID PRN PO 09/24/17 23:15 10/24/17 23:14 09/25/17 08:21 0.5 MG Pantoprazole Sodium (Protonix Tab) 40 mg BID PO 09/25/17 09:00 10/25/17 08:59 09/25/17 08:15 40 MG Rifaximin (Xifaxan Tab) 550 mg BID PO 09/25/17 09:00 10/25/17 08:59 09/25/17 08:16 550 MG Thiamine HCl (Vitamin B-1 Tab) 100 mg Q24H PO 09/24/17 23:15 10/24/17 23:14 09/24/17 23:50 100 MG Midodrine (Proamatine Tab) 15 mg BID@0800,1800 PO 09/25/17 08:00 10/25/17 07:59 09/25/17 17:30 15 MG Albumin Human (Albumin 25%) 12.5 gm Q6H IV 09/25/17 00:00 09/28/17 00:00 09/25/17 17:30 12.5 GM Prochlorperazine Edisylate 5 mg/ Syringe 5 ml @ 5 mls/min Q6H PRN IV 09/24/17 23:15 10/24/17 23:14 Tramadol HCl (Ultram Tab) 25 mg Q6H PRN PO 09/24/17 23:15 10/24/17 23:14 09/25/17 17:32 25 MG Hydromorphone HCl (Dilaudid Inj) 0.25 mg Q8H PRN IV 09/24/17 23:15 10/08/17 23:14
--- NOTE | 2017-09-25 18:53 | Discharge Instructions ---
Discharge Instructions Date of Service Sep 25, 2017. Admission Reason for Admission: Hyponatremia Discharge Discharge Diagnosis / Problem: decompensated cirrhosis with acites and hyponatremia 2/2 fluid overload Discharge Goals Goal(s): Prevent Disease Progression Activity Recommendations Activity Limitations: per Instructions/Follow-up section . Instructions / Follow-Up Instructions / Follow-Up Please ensure follow-up within one week of discharge from receiving facility with primary care physician. Please follow-up with Gastroenterology as needed. It was a pleasure taking care of you! Call if you have any questions or problems. You can reach a [facility] hospitalist on duty at [facility] 24 hours a day by calling [phone]. Take care of yourself. Mary Kay Haley DO [facility] Hospital[facility] Current Hospital Diet Patient's current hospital diet: Low Sodium Diet (2gm Na) Discharge Diet Recommended Diet: Low Sodium Diet (2gm Na) Fluid Restriction: 1500 ml (6 cups) Procedures Procedures Performed: Abdominal paracentesis to rule out SBP. Three L removed. Pending Studies Studies pending at discharge: yes List of pending studies: Ascitic gram stain and culture Blood cultures Medical Emergencies . Who to Call and When: Medical Emergencies: If at any time you feel your situation is an emergency, please call 911 immediately. . Non-Emergent Contact Non-Emergency issues call your: Primary Care Provider . . "Provider Documentation" section prepared by Mary Kay Haley. .
--- NOTE | 2017-09-25 18:59 | Discharge Summary ---
Discharge Summary Date of Service Sep 25, 2017. Discharge Summary Admission Date: Sep 24, 2017 at 21:02 Discharge Date: Sep 25, 2017 Discharge Disposition: Acute care facility Principal Diagnosis: Acute decompensated cirrhosis with ascites Hyponatremia Procedures: Ultrasound-guided abdominal paracentesis with 3 L removal Vaccinations: None. Consultations: GI-Craft Nephro-Oncu Pending Studies/Follow-Up: Per instructions below. Medication Reconciliation Continued Medications: Folic Acid (Folvite) 1 Mg Tab 1 MG PO QAM, TAB Furosemide (Furosemide) 40 Mg Tab 80 MG PO BID Lactulose (Chronulac) 10 Gm/15 Ml Syrp 15 GM PO QID Lorazepam (Lorazepam) 0.5 Mg Tab 0.5 MG PO BID PRN for Anxiety Midodrine Hcl (Midodrine Hcl) 5 Mg Tab 15 MG PO BID Pantoprazole (Pantoprazole Sodium) 40 Mg Tab 40 MG PO BID Potassium Chloride Microencaps (Potassium Chloride Er) 20 Meq Tab 20 MEQ PO BID Rifaximin (Xifaxan) 550 Mg Tab 550 MG PO BID Spironolactone (Spironolactone) 100 Mg Tab 100 MG PO DAILY Thiamine Hcl (Vitamin B-1) 100 Mg Tab 100 MG PO Q24H, TAB Tramadol HCl (Tramadol HCl) 50 Mg Tab 50 MG PO Q12 PRN for Pain Admission Information HPI (per Admitting provider): Patient is a 52-year-old with a past medical history of alcoholic cirrhosis, chronic hypotension, chronic hyponatremia and other medical problems listed below who presents with worsening abdominal fullness. Since last weekend, patient has been experiencing abdominal pain 2/2 ascites that she describes as constant, throbbing, 9/10 pain that is worse with inspiration or movement. Denies associated nausea. Is scheduled for paracentesis procedure tomorrow with Dr. Funk but due to poor outpatient labs, patient was directed to come to ED for further evaluation. Last paracentesis was 15 days ago. States that she is on a liver transplant list. Reportedly stopped drinking in November 2016. In addition to abdominal pain, patient endorses fatigue, generalized weakness and lightheadedness with exertion. Denies fever, chills, confusion, headache, visual changes, chest pain, SOB, nausea, vomiting, dysuria, melena, hematochezia. Chronic LE swelling. Did not take any medications today due to feeling "too full". In ED, patient was found to be hypotensive at 88/51 with sodium of 119, Tbili of 7.9, dbili of 4.3 and AST of 55. Received 500cc NSS bolus and albumin with improvement of BP to 105/50. Physical Exam (per Admitting): General Appearance: WD/WN, no apparent distress Head: normocephalic, atraumatic Eyes: normal inspection, PERRL, + pertinent finding (scleral icterus ) ENT: normal ENT inspection, hearing grossly normal, pharynx normal (dry mucous membranes) Neck: supple, thyroid normal, trachea midline Respiratory/Chest: chest non-tender, lungs clear, no respiratory distress, no accessory muscle use, + crackles (faint bibasilar crackles ) Cardiovascular: no murmur, normal peripheral pulses, + tachycardia, + pertinent finding (3+ BLE pitting edema) Abdomen/GI: non tender, soft, + distended (+ fluid wave ) Back: normal inspection Extremities/Musculoskelatal: normal inspection, no calf tenderness, normal capillary refill Neurologic/Psych: no motor/sensory deficits, alert, normal mood/affect, oriented x 3 Skin: + jaundice, + pertinent finding (diffuse spider angioma) Hospital Course 52-year-old female with alcoholic cirrhosis presents to the emergency room with complaints of worsening fullness in her abdomen sent over by her wood veneer taper secondary to recent blood work. Her lab studies show a low sodium level in the ER blood pressure was 88/51 pulse 98 s of 119. She was afebrile and not in acute respiratory distress oxygenating 98% on room air. She was given a 500 cc bolus of normal saline for her blood pressure which improved it to the 1 teens systolic. On physical exam her lungs were clear to auscultation heart sounds were normal and abdomen was soft but distended with a positive fluid wave, minimal diffuse tenderness, normoactive bowel sounds and no rebound or guarding. Patient was notably jaundiced with scleral icterus. Lab work revealed an H&H of 9.1 and 26. She had normal platelets of 275. Normal white count was noted, INR was 1.5, magnesium 2.0, total bilirubin 7.9, albumin 3.0. Bicarb was 18. She was given morphine IV for discomfort and albumin 25% 25 g IV 1 dose. She was admitted to telemetry. Gastroenterology was consulted and saw her the following morning. Her meld score was calculated at 29 and a urgent liver transplant was recommended. Transfer was set up to [facility] that morning. While awaiting transfer she underwent a diagnostic and therapeutic paracentesis with 3 L of ascitic fluid removed. Peritoneal fluid analysis did not indicate infection. Cultures were pending at discharge. Nephrology was consulted and recommended holding Lasix, continuing fluid restriction and continuing albumin every 6 hours with serial sodium monitoring. Sodium remained around 120 throughout her hospitalization and the patient remained hemodynamically stable. She was transferred to [facility] for consideration for urgent liver transplantation. Total time spent on discharge = 60 minutes This includes examination of the patient, discharge planning, medication reconciliation, and communication with other providers. [place] [address] Discharge Medical Patient Name: Lauren Licona Unit Number: [id number] Date of : 1965 Patient Status: Admitted Inpatient Attending Doctor: Mary Kay aHley DO DI: Medical v5 Discharge Instructions Date of Service Sep 25, 2017. Admission Reason for Admission: Hyponatremia Discharge Discharge Diagnosis / Problem: decompensated cirrhosis with acites and hyponatremia 2/2 fluid overload Discharge Goals Goal(s): Prevent Disease Progression Activity Recommendations Activity Limitations: per Instructions/Follow-up section . Instructions / Follow-Up Instructions / Follow-Up Please ensure follow-up within one week of discharge from receiving facility with primary care physician. Please follow-up with Gastroenterology as needed. It was a pleasure taking care of you! Call if you have any questions or problems. You can reach a [facility] hospitalist on duty at [facility] 24 hours a day by calling [phone]. Take care of yourself. Mary Kay Haley DO [facility] Hospitalist Current Hospital Diet Patient's current hospital diet: Low Sodium Diet (2gm Na) Discharge Diet Recommended Diet: Low Sodium Diet (2gm Na) Fluid Restriction: 1500 ml (6 cups) Procedures Procedures Performed: Abdominal paracentesis to rule out SBP. Three L removed. Pending Studies Studies pending at discharge: yes List of pending studies: Ascitic gram stain and culture Blood cultures Medical Emergencies . Who to Call and When: Medical Emergencies: If at any time you feel your situation is an emergency, please call 911 immediately. . Non-Emergent Contact Non-Emergency issues call your: Primary Care Provider . . "Provider Documentation" section prepared by Mary Kay Haley. . Additional Copies To Stef Hylton D.O.
[2017-09-25 23:59] VITALS: O2SAT 95
[2017-09-26] MEDS: ALBUMIN HUMAN 25% 12.5 GM/50 ML VIAL IV SCH (00:14)
[2017-09-26] MEDS: THIAMINE HCL 100 MG TAB PO SCH (00:14)
[2017-09-26] MEDS: TRAMADOL HCL 50 MG TAB PO PRN (00:15)
[2017-09-26 00:19] VITALS: BP 146/67; PULSE 70; TEMP 36.7; O2SAT 100
[2017-09-26 00:20] VITALS: BP 124/54; PULSE 109; TEMP 36.8; O2SAT 95
[2017-09-26] MEDS ORDERED: ENOXAPARIN 40 MG/0.4 ML SYR SQ SCH (09:00)
== END 2017-09-26 01:19 | disposition short-term general hospital (02) | DRG 433 ==
LOC: C.EDB 16:38 → C.2T 21:02 → ENRESERV 21:36
PROVIDERS: ADMIT Hospitalist; ATTEND Hospitalist
PROC: 0W9G3ZZ Drainage of Peritoneal Cavity, Percutaneous Approach (ICD-10-PCS; principal; 2017-09-25)
DX: K70.31 Alcoholic cirrhosis of liver with ascites (principal); E87.1 Hypo-osmolality and hyponatremia; R17 Unspecified jaundice; I85.10 Secondary esophageal varices without bleeding; I95.1 Orthostatic hypotension; D64.9 Anemia, unspecified; K21.9 Gastro-esophageal reflux disease without esophagitis; N18.3 Chronic kidney disease, stage 3 (moderate); F17.200 Nicotine dependence, unspecified, uncomplicated; Z79.899 Other long term (current) drug therapy; Z87.898 Personal history of other specified conditions; Z82.49 Family history of ischemic heart disease and other diseases of the circulatory system; Z82.3 Family history of stroke

== ENCOUNTER 2017-10-21 14:50 | Emergency (ER) | payer BC ==
[~2017-10-21] VITALS: Ht 165.1 cm; Wt 74.9 kg
[~2017-10-21 14:50] MED LIST changes: +ATV5X PO; -FLV1 PO; +FOLI1TAB8 PO; -FURO40TA3 PO; +LACT10SO17 PO; -LCTS240 PO; -LORA-741 PO; +LSX40 PO; +MIDO5TAB PO; -MULTTAB PO; -PANT40TA PO; +PANT40TA2 PO; +POTA20TA13 PO; -POTA20TA16 PO; -PRMT10 PO; +RIFA550T2 PO; -SPIR50TA2 PO; +SPRN100 PO; +THIA100T11 PO; -THM100 PO; -TRAM-10 PO; +ULT50 PO; -XFX550 PO
[2017-10-21 14:56] VITALS: TEMP 36.7; Ht 165.1 cm; Wt 74.9 kg
--- NOTE | 2017-10-21 15:50 | DIAGNOSTIC IMAGING REPORT ---
R SHOULDER MIN 2 VIEWS ROUTINE CLINICAL HISTORY: 52 years-old Female presenting with right shoulder pain/dislocation. TECHNIQUE: Internal rotation, external rotation, Grashey views of the right shoulder were obtained. COMPARISON: 06/09/2017. FINDINGS: Redemonstration of the comminuted fracture of the right humeral neck. There is incomplete bony bridging evident. Smoothly sclerotic margins along the fracture plane evident. There is significant impaction of the humeral neck on the humeral head with mild angulation. The humeral head remains congruent with the glenoid. Osteopenia suggested. IMPRESSION: 1. 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 Impaction and angulation are unchanged from prior. 2. Suspected osteopenia. Electronically signed by: Som Moore M.D. 10/21/2017 3:48 PM Dictated Date/Time: 10/21/2017 3:46 PM
[2017-10-21] MEDS ORDERED: DICLOFENAC SOD 1% GEL 100 GM TUBE EXT STA (16:04)
--- NOTE | 2017-10-21 16:16 | EMERGENCY ROOM VISIT NOTE ---
ED Visit Note First contact with patient: 14:58 CHIEF COMPLAINT: Right shoulder pain HISTORY OF PRESENT ILLNESS: This 52-year-old female patient presents to the emergency department, ambulatory, complaining of pain and dislocation of the in the right shoulder since yesterday. The patient states she was pulling laundry out of the dryer, when she heard a crack and felt the right shoulder pull out of the socket. The patient states she has been using ice and tramadol without significant relief of her symptoms. She is unable to abduct or externally rotate the shoulder. There is moderate limitation of motion of the arm because of the pain. The pain is moderate, constant and increases with motion of the hand and arm. The patient states the pain is sharp and 9/10. The patient did have a humeral head fracture in May, and was discharged from orthopedics and told the fracture would heal itself. No numbness or tingling. No neck or back pain. No chest pain or shortness of breath. No abdominal pain or nausea/ vomiting. No cough. REVIEW OF SYSTEMS: A 6 system review of systems was performed with positives and pertinent negatives in the HPI. ALLERGIES: None MEDICATIONS: Lorazepam, potassium, midodrine, lactulose, Xifaxan, spironolactone , furosemide, Protonix, tramadol, folic acid, thiamine PMH: Ascites, anxiety, GERD, chronic pain, cirrhosis SOCIAL HISTORY: The patient lives locally with family. She denies drug, tobacco use. PHYSICAL EXAM: Vital Signs: Reviewed nurse's notes, vital signs stable. GENERAL : This is a 52-year-old white female, in no acute distress, but appears to be in pain, well-developed, well-nourished. MUSCULOSKELETAL: There is potential anterior deformity of the humeral head, causing some mild deformity in the contour of the right shoulder. There is no sulcus sign. There is tenderness over the humeral head and shoulder joint. The patient's range of motion is limited due to pain. Supraspinatus strength 5/5. There is no clavicle tenderness. No tenderness of the humerus, elbow, wrist, or hand. Field Service Technician strength 5 /5. Radial pulse 2+. NECK: no tenderness to palpation over the cervical spine. Supple. No lymphadenopathy. HEART: Regular rate and rhythm without murmurs gallops or rubs. LUNGS: Clear to auscultation bilaterally without wheezes, rales or rhonchi. No accessory muscle use. No retractions. NEURO: The patient is alert and oriented to person, place, and time. Normal sensation to light and sharp touch. Capillary refill less than 2 seconds. RADIOLOGY: R SHOULDER MIN 2 VIEWS ROUTINE CLINICAL HISTORY: 52 years-old Female presenting with right shoulder pain/dislocation. TECHNIQUE: Internal rotation, external rotation, Grashey views of the right shoulder were obtained. COMPARISON: 06/09/2017. FINDINGS: Redemonstration of the comminuted fracture of the right humeral neck. There is incomplete bony bridging evident. Smoothly sclerotic margins along the fracture plane evident. There is significant impaction of the humeral neck on the humeral head with mild angulation. The humeral head remains congruent with the glenoid. Osteopenia suggested. IMPRESSION: 1. 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 Impaction and angulation are unchanged from prior. 2. Suspected osteopenia. Electronically signed by: Som Moore M.D. 10/21/2017 3:48 PM Dictated Date/Time: 10/21/2017 3:46 PM EMERGENCY DEPARTMENT COURSE: I examined the patient. An X-ray of the right shoulder was reviewed by myself and radiologist and shows old humeral neck fracture, but no acute abnormality. There is nonunion of the humeral neck with smooth sclerotic fracture margins. The impaction and angulation are unchanged. I discussed the findings with the patient at bedside. She was previously under the care of orthopedics. She was encouraged to use her arm sling that she has at home. She was given Voltaren gel to use for discomfort and I did recommend she continue to use her chronic pain medication. The patient was agreeable. She did request a refill of her tramadol, but I advised her that she would need to get this from her normal prescriber, as it is a controlled substance. The patient verbalizes understanding. She was encouraged to follow- up with orthopedics again for reevaluation. Discharge instructions reviewed, the patient was discharged home in good condition. I attest that I have personally reviewed the patient's current medication list. Patient was found to have normal blood pressure on screening and does not require follow-up. Etiologies such as soft tissue injury, fracture, dislocation, neurovascular compromise, compartment syndrome, as well as others were entertained. DIAGNOSIS: Shoulder strain The chart was completed utilizing Dragon Speech voice recognition software. Grammatical errors, random word insertions, pronoun errors, and incomplete sentences are an occasional consequence of this system due to software limitations, ambient noise, and hardware issues. Any formal questions or concerns about the content, text, or information contained within the body of this dictation should be directly addressed to the provider for clarification. Problem List Medical Problems: (1) Anemia of chronic disease Status: Chronic (2) Cirrhosis, alcoholic Status: Chronic (3) Depression Status: Chronic (4) Esophageal varices Status: Chronic (5) GERD (gastroesophageal reflux disease) Status: Chronic (6) H/O ETOH abuse Status: Chronic (7) Hepatorenal syndrome Status: Chronic (8) Hyponatremia Status: Chronic Current/Historical Medications Scheduled Folic Acid (Folvite), 1 MG PO QAM Furosemide (Furosemide), 80 MG PO BID Lactulose (Chronulac), 15 GM PO QID Midodrine Hcl (Midodrine Hcl), 15 MG PO BID Pantoprazole (Pantoprazole Sodium), 40 MG PO BID Potassium Chloride Microencaps (Potassium Chloride Er), 20 MEQ PO BID Rifaximin (Xifaxan), 550 MG PO BID Spironolactone (Spironolactone), 100 MG PO DAILY Thiamine Hcl (Vitamin B-1), 100 MG PO Q24H Scheduled PRN Lorazepam (Lorazepam), 0.5 MG PO BID PRN for Anxiety Tramadol HCl (Tramadol HCl), 50 MG PO Q12 PRN for Pain Allergies Coded Allergies: No Known Allergies (Verified , 10/21/17) Vital Signs Date Time Temp Pulse Resp B/P (MAP) Pulse Ox O2 Delivery O2 Flow Rate FiO2 10/21/17 14:56 36.7 97 18 117/67 98 Room Air Departure Information Impression Primary Impression: Right shoulder strain Dispostion Home / Self-Care Condition GOOD Referrals Stef Hylton D.O. (PCP) [facility] Patient Instructions ED Shoulder Pain Kay FOREMAN [facility] [place] [employer] Additional Instructions You have been treated in the Emergency Department for Shoulder Pain. X-ray did show old fracture, but no significant change Use your regularly prescribed pain medication as directed. Use Voltaren gel as directed for pain topically. For pain control, use recommended OTC medication by your PCP/specialists. If this is a recent injury (<24 hrs), ice can be applied to the area of pain for the first 3 days to help decrease pain and inflammation. You have been provided the number for an Orthopaedic Surgeon. You should call this number as soon as possible to establish a follow-up visit from today's Emergency Department visit. Keep the shoulder sling in place until evaluated by Orthopedics. Return to the Emergency Department if your current symptoms worsen despite treatment course outlined above, or if you develop any of the following symptoms : intractable pain despite aforementioned treatment course or new onset of numbness or tingling of the arm. Problem Qualifiers Primary Impression: Right shoulder strain Encounter type: initial encounter Qualified Codes: S46.911A - Strain of unspecified muscle, fascia and tendon at shoulder and upper arm level, right arm , initial encounter
[2017-10-21 16:41] VITALS: BP 120/54; PULSE 95; O2SAT 100
== END 2017-10-21 16:43 | disposition home or self-care (01) ==
LOC: C.EDB 14:53 → C.EDD 16:43
DX: S46.911A Strain of unspecified muscle, fascia and tendon at shoulder and upper arm level, right arm, initial encounter (principal); X50.0XXA Overexertion from strenuous movement or load, initial encounter; Y93.E2 Activity, laundry; K76.7 Hepatorenal syndrome; Z79.899 Other long term (current) drug therapy; E87.1 Hypo-osmolality and hyponatremia; F41.9 Anxiety disorder, unspecified; K21.9 Gastro-esophageal reflux disease without esophagitis; G89.29 Other chronic pain; D63.8 Anemia in other chronic diseases classified elsewhere; K70.30 Alcoholic cirrhosis of liver without ascites; F32.9 Major depressive disorder, single episode, unspecified; I85.10 Secondary esophageal varices without bleeding

== ENCOUNTER 2017-11-01 13:32 | Emergency (ER) | payer BC ==
[~2017-11-01] VITALS: Ht 165.1 cm; Wt 71.6 kg
[2017-11-01 13:35] VITALS: TEMP 36.5; Ht 165.1 cm; Wt 71.6 kg
--- NOTE | 2017-11-01 14:24 | EMERGENCY ROOM VISIT NOTE ---
History Report prepared by Jackelin: Daniel Pérez Under the Supervision of: Dr. Rachid Faye M.D. First contact with patient: 13:42 Chief Complaint: REFERRED BY DOCTOR Stated Complaint: REFERRED BY DR History of Present Illness The patient is a 52 year old female with a history of anemia and alcoholic cirrhosis who presents to the Emergency Room with persistent abnormal labs that were detected prior to arrival today. She says that she is currently on the list for a liver transplant, and had outpatient labs done in preparation for this. The patient states that she was seen at Dr. Hylton's office earlier today , and was told that her "sodium is too low and [her] kidney function is low". The patient was told to come here to have albumin. She adds that she is having fluid drained from her lungs and abdomen, and she has a lot of pain from that at the site that the fluid is drained. The patient notes that she has been nauseous all morning. She denies any fevers, chills, congestion, cough, vomiting , or diarrhea. She says that she last drank alcohol a bit less than a year ago. She takes Lactulose 4 times per day. The patient notes that she takes Tramadol for her pain, which made her a bit constipated about a week and a half ago when she was drained. She says that she follows-up with Dr. Montoya of [facility] transplant hepatology. Source of History: patient Onset: Detected AC/DC REWINDER today Position: other (global) Symptom Intensity: sodium too low, kidney function low Quality: other (abnormal labs) Timing: other (persistent) Associated Symptoms: + nausea, No fevers, No chills, No cough (or congestion ), No vomiting, No diarrhea Note: Associated symptoms: Pain from draining fluid from lung and abdomen. Review of Systems See HPI for pertinent positives and negatives. A total of ten systems were reviewed and were otherwise negative. Past Medical & Surgical Medical Problems: (1) Anemia of chronic disease (2) Cirrhosis, alcoholic (3) Depression (4) Esophageal varices (5) GERD (gastroesophageal reflux disease) (6) H/O ETOH abuse (7) Hepatorenal syndrome (8) Hyponatremia Family History FH: CAD (coronary artery disease) FATHER Stroke MOTHER Social History Smoking Status: Current Every Day Smoker Alcohol Use: heavy Drug Use: none, other Marital Status: Housing Status: lives with family Occupation Status: disabled Current/Historical Medications Scheduled Folic Acid (Folvite), 1 MG PO QAM Furosemide (Furosemide), 80 MG PO BID Lactulose (Chronulac), 30 GM PO QID Midodrine Hcl (Midodrine Hcl), 15 MG PO BID Pantoprazole (Pantoprazole Sodium), 40 MG PO BID Potassium Chloride Microencaps (Potassium Chloride Er), 20 MEQ PO BID Rifaximin (Xifaxan), 550 MG PO BID Spironolactone (Spironolactone), 100 MG PO DAILY Thiamine Hcl (Vitamin B-1), 100 MG PO Q24H Scheduled PRN Lorazepam (Lorazepam), 0.5 MG PO BID PRN for Anxiety Tramadol HCl (Tramadol HCl), 50 MG PO Q12 PRN for Pain Allergies Coded Allergies: Bupropion (Unverified Allergy, Unknown, tongue swelled, 11/01/17) Physical Exam Vital Signs Date Time Temp Pulse Resp B/P (MAP) Pulse Ox O2 Delivery O2 Flow Rate FiO2 11/01/17 23:27 104 20 107/56 99 11/01/17 22:34 111 20 100/56 98 Room Air 11/01/17 21:07 108 20 108/60 98 Room Air 11/01/17 19:37 112 20 121/46 98 Room Air 11/01/17 18:00 104 20 108/51 98 Room Air 11/01/17 17:10 103 11/01/17 16:07 97 16 91/62 98 Room Air 11/01/17 13:35 36.5 103 18 81/42 97 Room Air Physical Exam GENERAL: Awake, alert, fatigued-appearing, in no distress HENT: Normocephalic, atraumatic. Dry mucous membranes. EYES: Normal conjunctiva. Mild scleral icterus. NECK: Supple. No nuchal rigidity. FROM. No JVD. RESPIRATORY: Diminished breath sounds at the bases otherwise clear CARDIAC: Regular rate, normal rhythm. Extremities warm and well perfused. Pulses equal. ABDOMEN: Distended abdomen with ascites. No tenderness to palpation. No rebound or guarding. No masses. RECTAL: Deferred. MUSCULOSKELETAL: Chest examination mild ttp surrounding left CW pleural drain. Site clean, dry, intact. The back is symmetrical on inspection without obvious abnormality. There is no CVA tenderness to palpation. No joint edema. LOWER EXTREMITIES: Calves are equal size bilaterally and non-tender. 1+ lower extremity edema. No discoloration. NEURO: Normal sensorium. No sensory or motor deficits noted. SKIN: Slight jaundice. Scattered telangiectasias throughout. Medical Decision & Procedures ER Provider Diagnostic Interpretation: X-ray: Per my interpretation, radiologist review. CHEST ONE VIEW PORTABLE CLINICAL HISTORY: Left-sided chest and abdominal pain COMPARISON STUDY: 09/25/2017 FINDINGS: The cardiac and mediastinal contours remain stable. There is left-sided volume loss. There is been interval placement of a left-sided pleural drainage catheter. There is interval decrease in the size of a left pleural effusion. Left basal airspace opacities likely representing compressive atelectatic change. The right lung is clear. There is an old proximal right humeral fracture.[ IMPRESSION: 1. Interval decrease in the size of a left pleural effusion status post placement of a left-sided pleural drainage catheter 2. Left-sided volume loss 3. No evidence of pneumothorax 4. No evidence of free intraperitoneal air 5. Incompletely healed proximal right humeral fracture Electronically signed by: Manuel Lou M.D. 11/01/2017 2:56 PM Dictated Date/Time: 11/01/2017 2:53 PM Laboratory Results 11/01/17 14:40 Red Blood Count 2.64, Mean Corpuscular Volume 93.2, Mean Corpuscular Hemoglobin 32.6, Mean Corpuscular Hemoglobin Concent 35.0, Mean Platelet Volume 9.0, Neutrophils (%) (Auto) 71.3, Lymphocytes (%) (Auto) 15.8, Monocytes (%) (Auto) 10.5, Eosinophils (%) (Auto) 1.7, Basophils (%) (Auto) 0.2, Neutrophils # (Auto ) 6.76, Lymphocytes # (Auto) 1.50, Monocytes # (Auto) 1.00, Eosinophils # (Auto ) 0.16, Basophils # (Auto) 0.02 11/01/17 21:19 Test 11/01/17 14:40 11/01/17 19:05 11/01/17 21:19 White Blood Count 9.49 K/uL (4.8-10.8) Red Blood Count 2.64 M/uL (4.2-5.4) Hemoglobin 8.6 g/dL (12.0-16.0) Hematocrit 24.6 % (37-47) Mean Corpuscular Volume 93.2 fL (80-100) Mean Corpuscular Hemoglobin 32.6 pg (25-34) Mean Corpuscular Hemoglobin Concent 35.0 g/dl (32-36) Platelet Count 306 K/uL (130-400) Mean Platelet Volume 9.0 fL (7.4-10.4) Neutrophils (%) (Auto) 71.3 % Lymphocytes (%) (Auto) 15.8 % Monocytes (%) (Auto) 10.5 % Eosinophils (%) (Auto) 1.7 % Basophils (%) (Auto) 0.2 % Neutrophils # (Auto) 6.76 K/uL (1.4-6.5) Lymphocytes # (Auto) 1.50 K/uL (1.2-3.4) Monocytes # (Auto) 1.00 K/uL (0.11-0.59) Eosinophils # (Auto) 0.16 K/uL (0-0.5) Basophils # (Auto) 0.02 K/uL (0-0.2) RDW Standard Deviation 57.5 fL (36.4-46.3) RDW Coefficient of Variation 16.7 % (11.5-14.5) Immature Granulocyte % (Auto) 0.5 % Immature Granulocyte # (Auto) 0.05 K/uL (0.00-0.02) Echinocytes 1+ Prothrombin Time 16.6 SECONDS (9.0-12.0) Prothromb Time International Ratio 1.6 (0.9-1.1) Lactic Acid Level 1.9 mmol/L (0.4-2.0) Ammonia < 10.0 umol/L (11-32) Troponin I < 0.015 ng/ml (0-0.045) Lipase 133 U/L (73-393) Urine Color DK YELLOW Urine Appearance CLEAR (CLEAR) Urine pH 5.0 (4.5-7.5) Urine Specific [place] 1.019 (1.000-1.030) Urine Protein NEG (NEG) Urine Glucose (UA) NEG (NEG) Urine Ketones TRACE (NEG) Urine Occult Blood NEG (NEG) Urine Nitrite NEG (NEG) Urine Bilirubin NEG (NEG) Urine Urobilinogen NEG (NEG) Urine Leukocyte Esterase TRACE (NEG) Urine WBC (Auto) 1-5 /hpf (0-5) Urine RBC (Auto) 0-4 /hpf (0-4) Urine Hyaline Casts (Auto) 10-30 /lpf (0-5) Urine Epithelial Cells (Auto) >30 /lpf (0-5) Urine Bacteria (Auto) NEG (NEG) Urine Pathogenic Casts 0-3 GRANULAR CASTS /lpf (0) Anion Gap 14.0 mmol/L (3-11) Est Creatinine Clear Calc Drug Dose 33.4 ml/min Estimated GFR () 33.8 Estimated GFR (Non- 29.2 BUN/Creatinine Ratio 8.4 (10-20) Calcium Level 7.8 mg/dl (8.5-10.1) Phosphorus Level 3.1 mg/dl (2.5-4.9) Magnesium Level 1.6 mg/dl (1.8-2.4) Total Bilirubin 5.2 mg/dl (0.2-1) Direct Bilirubin 2.3 mg/dl (0-0.2) Aspartate Amino Transf (AST/SGOT) 30 U/L (15-37) Alanine Aminotransferase (ALT/SGPT) 14 U/L (12-78) Alkaline Phosphatase 207 U/L (45-117) Total Protein 5.1 gm/dl (6.4-8.2) Albumin 2.7 gm/dl (3.4-5.0) Laboratory results reviewed by me Medications Administered Medications (Trade) Dose Ordered Sig/Betty Route Start Time Stop Time Status Last Admin Dose Admin Sodium Chloride 500 ml @ 999 mls/hr Q31M STAT IV 11/01/17 14:56 11/01/17 15:26 DC 11/01/17 16:06 999 MLS/HR Dextrose/Sodium Chloride 1,000 ml @ 100 mls/hr Q10H STAT IV 11/01/17 16:28 11/01/17 23:58 DC 11/01/17 19:04 100 MLS/HR Fentanyl Citrate (Fentanyl Inj) 25 mcg NOW STAT IV 11/01/17 17:47 11/01/17 17:48 DC 11/01/17 17:55 25 MCG Fentanyl Citrate (Fentanyl Inj) 50 mcg NOW STAT IV 11/01/17 18:49 11/01/17 18:50 DC 11/01/17 19:05 50 MCG Lidocaine (Lidoderm Patch 5%) 1 patch NOW STAT TD 11/01/17 18:49 11/01/17 18:50 DC 11/01/17 19:05 1 PATCH Magnesium Sulfate (Magnesium Sulfate 1gm / D5W) 2 gm NOW STAT IV 11/01/17 22:18 11/01/17 22:20 DC 11/01/17 22:29 2 GM Fentanyl Citrate (Fentanyl Inj) 25 mcg NOW ONCE IV 11/01/17 22:45 11/01/17 22:46 DC 11/01/17 22:47 25 MCG ECG Per My Interpretation Indication: nausea Rate (beats per minute): 99 Rhythm: sinus rhythm Findings: PAC, no acute ischemic change, other (normal axis) ED Course 1401: The patient was evaluated in room B8. A complete history and physical exam was performed. 1440: I discussed the patient with Dr. Warner March PCP - he was just letting me know that he sent the patient in. 1448: I discussed the patient with a PA-C at [facility] - based on the patient 's MELD score, it is reasonable to transfer to a transplant facility. 1456: NSS 500 ml @ 999 mls/hr IV. 1557: I discussed the patient with Dr. Jan March hepatology - he agreed that we should transfer the patient. We got the hospitalist, Dr. Prakash, on board. The patient is accepted for direct transfer to [facility]. 1622: I reevaluated the patient and she is resting. I discussed the test results and treatment plan with her, and she is agreeable. The patient will be transferred to [facility]. Medical Decision I reviewed the patient's past medical history, medications, and the nursing notes as described above. Differential diagnosis: Etiologies such as metabolic, infection, hypo/hyperglycemia, electrolyte abnormalities, cardiac sources, intracerebral event, toxicologic, neurologic, as well as others were entertained. The patient is a 52-year-old woman with a past medical history of alcoholic cirrhosis, end-stage liver disease on the transplant list at [facility] who presents emergency department with worsening outpatient labs with hyponatremia of 119 creatinine of 1.7 which are worsened from 10/22 of sodium of 125 and creatinine of 1.0 per hpi. While the patient is fatigued appearing but no acute distress, afebrile with heart rate in the low 100s systolic blood pressure 80-90s, mentating normally, vital signs otherwise stable. Exam the patient has mild jaundice and scleral icterus, moderately distended abdomen but not tense or tender. She has a left chest wall pleural drain is clean dry and intact. No asterixis. Labs here with Cr 1.9. Sodium 120 INR 1.6. Lactate 1.9. Case was discussed with tamar Monsivais/[facility] PA and we agree that given the patient's increased meld score reasonable to transfer to [facility]. Initially discussed with Joaquim Dotson Khurana, hepatology who agrees for transfer, recommends to defer paracentesis at this time until they are able to evaluate the patient at [facility]. Additionally we agreed to hold on albumin and will proceed with gentle hydration for now. [facility] Medicine hospitalist, Dr. Prakash, accepts the patient for direct transfer. Patient transferred via ALS once bed became available. Medication Reconcilliation Current Medication List: was personally reviewed by me Blood Pressure Screening Patient's blood pressure: Low blood pressure Referred to [facility]. Consults Time Called: 1430 Consulting Physician: Dr. Warner March PCP Returned Call: 1440 I discussed the patient with Dr. Warner March PCP - he was just letting me know that he sent the patient in. Additional Consults: Time Called: 1444 Consulted Physician: JELLY at [facility] Returned Call: 1444 Additional Comments: I discussed the patient with a PA-C at [facility] - based on the patient's MELD score, it is reasonable to transfer to a transplant facility. Time Called: 1550 Consulted Physician: Dr. Jan March hepatology Returned Call: [phone] Additional Comments: I discussed the patient with Dr. Jan March hepatology - he agreed that we should transfer the patient. We got the hospitalist, Dr. Prakash, on board. The patient is accepted for direct transfer to [facility]. Impression Primary Impression: Hyponatremia Additional Impressions: TRACY (acute kidney injury) End stage liver disease Scribe Attestation The scribe's documentation has been prepared under my direction and personally reviewed by me in its entirety. I confirm that the note above accurately reflects all work, treatment, procedures, and medical decision making performed by me. Departure Information Dispostion Transfer Acute Care Facility (to [facility]) Referrals Stef Hylton D.O. (PCP) Patient Instructions My [facility] Problem Qualifiers
[2017-11-01 14:53] LABS: HEMATOCRIT 24.6 % (37-47); HEMOGLOBIN 8.6 g/dL (12.0-16.0); MEAN CELL VOLUME 93.2 fL (80-100); MEAN CORPUSCULAR HEMOGLOBIN 32.6 pg (25-34); PLATELET COUNT 306 K/uL (130-400); RED CELL DISTRIBUTION WIDTH CV 16.7 % (11.5-14.5); RED CELL DISTRIBUTION WIDTH SD 57.5 fL (36.4-46.3); WHITE BLOOD COUNT 9.49 K/uL (4.8-10.8)
[2017-11-01] MEDS ORDERED: SODIUM CHLORIDE 0.9% 500ML 500 ML IV STA (14:56)
--- NOTE | 2017-11-01 14:57 | DIAGNOSTIC IMAGING REPORT ---
CHEST ONE VIEW PORTABLE CLINICAL HISTORY: Left-sided chest and abdominal pain COMPARISON STUDY: 09/25/2017 FINDINGS: The cardiac and mediastinal contours remain stable. There is left-sided volume loss. There is been interval placement of a left-sided pleural drainage catheter. There is interval decrease in the size of a left pleural effusion. Left basal airspace opacities likely representing compressive atelectatic change. The right lung is clear. There is an old proximal right humeral fracture.[ IMPRESSION: 1. Interval decrease in the size of a left pleural effusion status post placement of a left-sided pleural drainage catheter 2. Left-sided volume loss 3. No evidence of pneumothorax 4. No evidence of free intraperitoneal air 5. Incompletely healed proximal right humeral fracture Electronically signed by: Manuel Lou M.D. 11/01/2017 2:56 PM Dictated Date/Time: 11/01/2017 2:53 PM
[2017-11-01 15:03] LABS: INR 1.6 (0.9-1.1)
[2017-11-01 15:20] LABS: BASO % 0.2 %; BASO ABS # 0.02 K/uL (0-0.2); EOS % 1.7 %; EOS ABS # 0.16 K/uL (0-0.5); IG# 0.05 K/uL (0.00-0.02); LYMPH % 15.8 %; MONO % 10.5 %; NEUT % 71.3 %; NEUT ABS # 6.76 K/uL (1.4-6.5)
[2017-11-01 15:21] LABS: ALBUMIN 3.2 gm/dl (3.4-5.0); ALKALINE PHOSPHATASE 240 U/L (45-117); ALT/SGPT 14 U/L (12-78); AST/SGOT 30 U/L (15-37); BLOOD UREA NITROGEN 14 mg/dl (7-18); CALCIUM 8.6 mg/dl (8.5-10.1); CARBON DIOXIDE 20 mmol/L (21-32); CREATININE 1.95 mg/dl (0.60-1.20); GLUCOSE 78 mg/dl (70-99); LIPASE 133 U/L (73-393); PHOSPHORUS 3.4 mg/dl (2.5-4.9); POTASSIUM 4.1 mmol/L (3.5-5.1); SODIUM 120 mmol/L (136-145)
[2017-11-01] MEDS ORDERED: D5W AND NSS 1,000 ML IV STA (16:28)
[2017-11-01] MEDS ORDERED: FENTANYL CITRATE INJ 50 MCG/1 ML 2 ML VIAL IV STA ×2 (17:47→18:49)
[2017-11-01] MEDS ORDERED: LIDODERM (LIDOCAINE) PATCH 5% TD STA (18:49)
[2017-11-01 22:04] LABS: CREATININE 1.91 mg/dl (0.60-1.20)
[2017-11-01 22:05] LABS: ALBUMIN 2.7 gm/dl (3.4-5.0); CALCIUM 7.8 mg/dl (8.5-10.1); PHOSPHORUS 3.1 mg/dl (2.5-4.9); POTASSIUM 4.2 mmol/L (3.5-5.1); TOTAL PROTEIN 5.1 gm/dl (6.4-8.2)
[2017-11-01] MEDS ORDERED: MAGNESIUM SULFATE 1GM / D5W 1 GM BAG IV STA (22:18)
[2017-11-01] MEDS ORDERED: NURSING VERBAL MED ORDER ONE (22:45)
[2017-11-01] MEDS ORDERED: FENTANYL CITRATE INJ 50 MCG/1 ML 2 ML VIAL IV ONE (22:45)
[2017-11-01 23:27] VITALS: BP 107/56; PULSE 104; O2SAT 99
== END 2017-11-01 23:27 | disposition short-term general hospital (02) ==
LOC: C.EDB 13:33
DX: K70.31 Alcoholic cirrhosis of liver with ascites (principal); E87.1 Hypo-osmolality and hyponatremia; N17.9 Acute kidney failure, unspecified; R03.1 Nonspecific low blood-pressure reading; Z76.82 Awaiting organ transplant status; F10.11 Alcohol abuse, in remission; D64.9 Anemia, unspecified; K21.9 Gastro-esophageal reflux disease without esophagitis; F17.200 Nicotine dependence, unspecified, uncomplicated; Z88.8 Allergy status to other drugs, medicaments and biological substances

== ENCOUNTER 2018-01-27 12:54 | Emergency (ER) | payer BC ==
[~2018-01-27] VITALS: Ht 165.1 cm; Wt 61.3 kg
[~2018-01-27 12:54] MED LIST changes: -LACT10SO17 PO; +LACT10SO3 PO; -POTA20TA13 PO; +THIA100T10 PO; -THIA100T11 PO
[2018-01-27 12:57] VITALS: TEMP 36.4; Ht 165.1 cm; Wt 61.3 kg
[2018-01-27] MEDS ORDERED: SODIUM CHLORIDE 0.9% 250ML 250 ML IV STA (13:26)
[2018-01-27] MEDS ORDERED: LIDODERM (LIDOCAINE) PATCH 5% TD STA (13:26)
[2018-01-27] MEDS ORDERED: OXYCODONE HCL IR 5 MG TAB (IMMEDIATE RELEASE) PO STA (13:26)
--- NOTE | 2018-01-27 13:31 | EMERGENCY ROOM VISIT NOTE ---
History Report prepared by Jackelin: Lopez Huff Under the Supervision of: Dr. Rachid Faye M.D. First contact with patient: 13:13 Chief Complaint: ABDOMINAL PAIN Stated Complaint: S/P LIVER TRANSPLANT, PAIN RT UPPER ABD Nursing Triage Summary: [place] [facility] [place] On Saturday patient reached to swat a fly and got pain in right upper abdomen. The pain is getting worse. Patient feels like she pulled something or broke a rib. Patient called today to transplant center and they advised patient to call PCP. PCP referred patient to ED. Pain is worse with movement and deep breaths. History of Present Illness The patient is a 52 year old female who presents to the Emergency Room with complaints of abdominal pain that started 2 days ago. She reports that she had a liver transplant on December 11 of this year. The patient reports she hurt herself trying to swat a fly, overreached, and was then doubled over in pain. She states that the pain feels like a "broken rib". She reports that her pain worsened over the last 2 days but that she was not in pain yesterday. The patient states that she called the Transplant Center who then called the patient 's doctor who then referred her here. She notes that she takes 5mg of oxycodone and Tramadol for her pain and took 5mg of oxycodone this morning. The patient also notes that she is usually hypertensive. She states that she cannot take Tylenol or ibuprofen still. She notes that she has had a toothache since the transplant and is on Bactrim. She denies fever, chills, cough, congestion, nausea, vomiting, or diarrhea. Source of History: patient Onset: 2 days ago Position: abdomen Quality: other (pain ) Timing: worsening (over the last 2 days ) Associated Symptoms: No fevers, No chills, No nausea, No vomiting, No diarrhea Review of Systems See HPI for pertinent positives and negatives. A total of ten systems were reviewed and were otherwise negative. Past Medical & Surgical Medical Problems: (1) Anemia of chronic disease (2) Cirrhosis, alcoholic (3) Depression (4) Esophageal varices (5) GERD (gastroesophageal reflux disease) (6) H/O ETOH abuse (7) Hepatorenal syndrome (8) Hyponatremia Family History FH: CAD (coronary artery disease) FATHER Stroke MOTHER Social History Smoking Status: Former Smoker Alcohol Use: heavy Drug Use: none, other Marital Status: Housing Status: lives with family Occupation Status: disabled Current/Historical Medications Scheduled Aspirin (Aspirin Ec), 81 MG PO QAM Fluconazole (Diflucan), 1 TAB PO MONDAYS Folic Acid (Folvite), 1 MG PO QAM Magnesium Oxide (Mag-Ox), 400 MG PO BID Mycophenolate Mofetil (Cellcept), 500 MG PO BIDM Oxycodone HCl (Oxycodone HCl), 5 MG PO UD Pantoprazole (Pantoprazole Sodium), 40 MG PO BID Prednisone (Prednisone), 2.5 TAB PO QAM Tacrolimus (Prograf), 7 MG PO QAM Thiamine Hcl (Vitamin B-1), 100 MG PO Q24H Valacyclovir HCl (Valacyclovir HCl), 500 MG PO QAM [Smz-Tmp], 1 TAB PO MoWeFr Scheduled PRN Lidocaine (Lidocaine), 1 PATCH TD DAILY PRN for Pain Lorazepam (Lorazepam), 0.5 MG PO BID PRN for Anxiety Tramadol Hcl (Ultram), 50 MG PO Q12 PRN for Pain Allergies Coded Allergies: Bupropion (Verified Allergy, Unknown, tongue swelled, 01/27/18) Physical Exam Vital Signs Date Time Temp Pulse Resp B/P (MAP) Pulse Ox O2 Delivery O2 Flow Rate FiO2 01/27/18 16:26 74 151/80 96 01/27/18 15:26 78 144/81 96 Room Air 01/27/18 12:57 36.4 99 20 144/82 96 Room Air Physical Exam GENERAL: Awake, alert, uncomfortable-appearing, in no distress HENT: Normocephalic, atraumatic. Oropharynx unremarkable. Mucous membranes are dry. EYES: Normal conjunctiva. Sclera non-icteric. NECK: Supple. No nuchal rigidity. FROM. No JVD. RESPIRATORY: Clear to auscultation. CARDIAC: Regular rate, normal rhythm. Extremities warm and well perfused. Pulses equal. ABDOMEN: Soft, non-distended. No tenderness to palpation. No rebound or guarding. No masses. RECTAL: Deferred. MUSCULOSKELETAL: Chest examination reveals right lower anterior chest wall tenderness, no crepitus, and surgical scars are without erythema, warmth, or tenderness. The back is symmetrical on inspection without obvious abnormality. There is no CVA tenderness to palpation. No joint edema. LOWER EXTREMITIES: Calves are equal size bilaterally and non-tender. No edema. No discoloration. NEURO: Normal sensorium. No sensory or motor deficits noted. SKIN: No rash or jaundice noted. Medical Decision & Procedures ER Provider Diagnostic Interpretation: Radiology results as stated below per my review and radiologist interpretation: CHEST ONE VIEW PORTABLE CLINICAL HISTORY: Abdominal pain. Chest pain. COMPARISON STUDY: Chest radiograph December 02, 2017. FINDINGS: A small left pleural effusion is noted. A 3.2 cm wedge-shaped opacity within the lateral left midlung is noted. There are old left rib fractures as well as old right humeral neck fracture. Left hemithorax volume loss is unchanged. Left lower lung aeration has improved. Right lung is clear. There is no pneumothorax. There is no evidence for pulmonary edema. IMPRESSION: 1. Small left pleural fusion. No pneumothorax. 2. 3.2 cm wedge-shaped opacity within the lateral left midlung which is indeterminate and should be assessed on follow-up chest radiograph to ensure resolution. Improved left lower lung aeration since previous exam. Electronically signed by: Ruben Matos M.D. 01/27/2018 1:46 PM Dictated Date/Time: 01/27/2018 1:43 PM Laboratory Results 01/27/18 14:38 Red Blood Count 3.73, Mean Corpuscular Volume 93.3, Mean Corpuscular Hemoglobin 30.3, Mean Corpuscular Hemoglobin Concent 32.5, Mean Platelet Volume 9.1, Neutrophils (%) (Auto) 91.1, Lymphocytes (%) (Auto) 1.9, Monocytes (%) (Auto) 5.7, Eosinophils (%) (Auto) 0.8, Basophils (%) (Auto) 0.2, Neutrophils # (Auto) 8.20, Lymphocytes # (Auto) 0.17, Monocytes # (Auto) 0.51, Eosinophils # (Auto) 0.07, Basophils # (Auto) 0.02 01/27/18 14:38 Test 01/27/18 14:38 01/27/18 14:55 White Blood Count 9.00 K/uL (4.8-10.8) Red Blood Count 3.73 M/uL (4.2-5.4) Hemoglobin 11.3 g/dL (12.0-16.0) Hematocrit 34.8 % (37-47) Mean Corpuscular Volume 93.3 fL (80-100) Mean Corpuscular Hemoglobin 30.3 pg (25-34) Mean Corpuscular Hemoglobin Concent 32.5 g/dl (32-36) Platelet Count 334 K/uL (130-400) Mean Platelet Volume 9.1 fL (7.4-10.4) Neutrophils (%) (Auto) 91.1 % Lymphocytes (%) (Auto) 1.9 % Monocytes (%) (Auto) 5.7 % Eosinophils (%) (Auto) 0.8 % Basophils (%) (Auto) 0.2 % Neutrophils # (Auto) 8.20 K/uL (1.4-6.5) Lymphocytes # (Auto) 0.17 K/uL (1.2-3.4) Monocytes # (Auto) 0.51 K/uL (0.11-0.59) Eosinophils # (Auto) 0.07 K/uL (0-0.5) Basophils # (Auto) 0.02 K/uL (0-0.2) RDW Standard Deviation 62.2 fL (36.4-46.3) RDW Coefficient of Variation 18.1 % (11.5-14.5) Immature Granulocyte % (Auto) 0.3 % Immature Granulocyte # (Auto) 0.03 K/uL (0.00-0.02) Prothrombin Time 10.5 SECONDS (9.0-12.0) Prothromb Time International Ratio 1.0 (0.9-1.1) Anion Gap 6.0 mmol/L (3-11) Est Creatinine Clear Calc Drug Dose 73.3 ml/min Estimated GFR () 98.4 Estimated GFR (Non- 84.9 BUN/Creatinine Ratio 22.5 (10-20) Calcium Level 8.8 mg/dl (8.5-10.1) Total Bilirubin 0.5 mg/dl (0.2-1) Direct Bilirubin 0.3 mg/dl (0-0.2) Aspartate Amino Transf (AST/SGOT) 9 U/L (15-37) Alanine Aminotransferase (ALT/SGPT) 18 U/L (12-78) Alkaline Phosphatase 112 U/L (45-117) Total Protein 6.0 gm/dl (6.4-8.2) Albumin 2.8 gm/dl (3.4-5.0) Lipase 47 U/L (73-393) Urine Color YELLOW Urine Appearance CLEAR (CLEAR) Urine pH 7.0 (4.5-7.5) Urine Specific [place] 1.008 (1.000-1.030) Urine Protein NEG (NEG) Urine Glucose (UA) NEG (NEG) Urine Ketones NEG (NEG) Urine Occult Blood NEG (NEG) Urine Nitrite NEG (NEG) Urine Bilirubin NEG (NEG) Urine Urobilinogen NEG (NEG) Urine Leukocyte Esterase NEG (NEG) Laboratory results reviewed by me Medications Administered Medications (Trade) Dose Ordered Sig/Betty Route Start Time Stop Time Status Last Admin Dose Admin Oxycodone HCl (Roxicodone Immediate Rel Tab) 5 mg NOW STAT PO 01/27/18 13:26 01/27/18 13:28 DC 01/27/18 13:46 5 MG Lidocaine (Lidoderm Patch 5%) 1 patch NOW STAT TD 01/27/18 13:26 01/27/18 13:28 DC 01/27/18 13:47 1 PATCH Sodium Chloride 250 ml @ 999 mls/hr Q16M STAT IV 01/27/18 13:26 01/27/18 13:41 DC 01/27/18 14:46 999 MLS/HR ED Course 1318: The patient was evaluated in room B12A. A complete history and physical exam was performed. 1455: I updated patient on imaging results 1530: I reevaluated the patient 1600: I spoke with Dr. Pereira who is okay with letting the patient go home. 1612: I reevaluated the patient. Discussed results and discharge instructions: She verbalized understanding and agreement. The patient is ready for discharge. Medical Decision I reviewed the patient's past medical history, medications, and the nursing notes as described above. Differential diagnosis: Etiologies such as appendicitis, diverticulitis, PUD, biliary pathology, UTI, pancreatitis, obstruction, mesenteric ischemia, aortic pathology, infections, inflammatory bowel disease, renal colic, as well as others were entertained. The patient is a 52 y/o woman with a pmhx of ESLD [place] [facility] [place] to the emergency department with right lower CW pain after attempting to swat a fly on Htad per HPI. On arrival the patient is in NAD, AFVSS. On exam, the patient has mild right lower anterior CW ttp. No ttp over RLQ transplant site. Surgical scars without erythema, warmth, or ttp. CXR without acute findings. Labs unremarkable with WBC wnl. Chemistry unremarkable. D-bili 0.3 similar to prior values in [facility] on 01/20. Patient feeling improved after oxycodone and lidoderm patch. Case d/w Dr. Pereira, patient's transplant surgeon, we agree that sx likely muscular strain. No need for further w/u at this time. Patient has f/u appointment tomorrow at [facility]. Findings and plan for follow-up reviewed with patient. Patient agreeable and d/c'd per discharge instructions. Medication Reconcilliation Current Medication List: was personally reviewed by me Blood Pressure Screening Patient's blood pressure: Elevated blood pressure Blood pressure disposition: Referred to PCP Consults Time Called: 1550 Consulting Physician: Dr. Pereira - Transplant doctor Returned Call: [address] Pereira who is okay with letting the patient go home. Impression Primary Impression: Chest wall muscle strain Scribe Attestation The scribe's documentation has been prepared under my direction and personally reviewed by me in its entirety. I confirm that the note above accurately reflects all work, treatment, procedures, and medical decision making performed by me. Departure Information Dispostion Home / Self-Care Prescriptions Tramadol Hcl (ULTRAM) 50 Mg Tab 50 MG PO Q12 Y for Pain for 7 Days, #14 TAB PRN PAIN Prov: Rachid Faye M.D. 01/27/18 Lidocaine (Lidocaine) 1 Patch Tdsy 1 PATCH TD DAILY Y for Pain, #10 PATCH Prov: Rachid Faye M.D. 01/27/18 Referrals Stef Hylton D.O. (PCP) Forms Call Back Authorization, HOME CARE DOCUMENTATION FORM, IMPORTANT VISIT INFORMATION Patient Instructions ED Chest Pain Costochondritis, My [facility] [address] Additional Instructions Please follow up with your transplant surgeon tomorrow as scheduled. Your symptoms are most likely due to a muscle strain of your chest wall. Otherwise, your exam, chest xray, and lab results did not show signs of an emergent condition at this time. Continue your medications as prescribed. Lidoderm patch for additional pain relief. Drink plenty of fluids to ensure hydration. Return to the emergency department for worsening symptoms as described in the accompanying instructions.
--- NOTE | 2018-01-27 13:47 | DIAGNOSTIC IMAGING REPORT ---
CHEST ONE VIEW PORTABLE CLINICAL HISTORY: Abdominal pain. Chest pain. COMPARISON STUDY: Chest radiograph December 02, 2017. FINDINGS: A small left pleural effusion is noted. A 3.2 cm wedge-shaped opacity within the lateral left midlung is noted. There are old left rib fractures as well as old right humeral neck fracture. Left hemithorax volume loss is unchanged. Left lower lung aeration has improved. Right lung is clear. There is no pneumothorax. There is no evidence for pulmonary edema. IMPRESSION: 1. Small left pleural fusion. No pneumothorax. 2. 3.2 cm wedge-shaped opacity within the lateral left midlung which is indeterminate and should be assessed on follow-up chest radiograph to ensure resolution. Improved left lower lung aeration since previous exam. Electronically signed by: Ruben Matos M.D. 01/27/2018 1:46 PM Dictated Date/Time: 01/27/2018 1:43 PM
[2018-01-27] MEDS ORDERED: TACR1CAP PO (14:36)
[2018-01-27] MEDS ORDERED: OXYC-609 PO (14:36)
[2018-01-27] MEDS ORDERED: MYCO500T4 PO (14:36)
[2018-01-27] MEDS ORDERED: ASPI81TA28 PO (14:36)
[2018-01-27] MEDS ORDERED: SMZ-TMP PO (14:36)
[2018-01-27] MEDS ORDERED: PRED-301 PO (14:36)
[2018-01-27] MEDS ORDERED: VLT500 PO (14:36)
[2018-01-27] MEDS ORDERED: FLUC200T4 PO (14:36)
[2018-01-27] MEDS ORDERED: MAGN400T6 PO (14:39)
[2018-01-27 14:51] LABS: BASO % 0.2 %; BASO ABS # 0.02 K/uL (0-0.2); EOS % 0.8 %; EOS ABS # 0.07 K/uL (0-0.5); HEMATOCRIT 34.8 % (37-47); HEMOGLOBIN 11.3 g/dL (12.0-16.0); IG# 0.03 K/uL (0.00-0.02); LYMPH % 1.9 %; LYMPH ABS # 0.17 K/uL (1.2-3.4); MEAN CELL VOLUME 93.3 fL (80-100); MEAN CORPUSCULAR HEMOGLOBIN 30.3 pg (25-34); MEAN CORPUSCULAR HGB CONC 32.5 g/dl (32-36); MEAN PLATELET VOLUME 9.1 fL (7.4-10.4); MONO % 5.7 %; MONO ABS # 0.51 K/uL (0.11-0.59); NEUT % 91.1 %; PLATELET COUNT 334 K/uL (130-400); RED CELL DISTRIBUTION WIDTH CV 18.1 % (11.5-14.5); RED CELL DISTRIBUTION WIDTH SD 62.2 fL (36.4-46.3)
[2018-01-27 15:11] LABS: ALBUMIN 2.8 gm/dl (3.4-5.0); CALCIUM 8.8 mg/dl (8.5-10.1); CREATININE 0.79 mg/dl (0.60-1.20); POTASSIUM 4.9 mmol/L (3.5-5.1)
[2018-01-27] MEDS ORDERED: LDDP5 TD (16:02)
[2018-01-27 16:26] VITALS: BP 151/80; PULSE 74; O2SAT 96
[2018-01-27] MEDS ORDERED: ULT/50 PO (16:46)
--- NOTE | 2018-01-27 16:55 | Pharmacy Progress Note ---
ED Pharmacist Progress Note Date of Service: Jan 27, 2018. Received call from [facility] requesting clarification on strength of lidocaine patch. Spoke w Dr. Faye, confirmed 5% patch. Notified outpatient pharmacist.
== END 2018-01-27 16:28 | disposition home or self-care (01) ==
LOC: C.EDB 12:56
DX: S29.011A Strain of muscle and tendon of front wall of thorax, initial encounter (principal); X50.1XXA Overexertion from prolonged static or awkward postures, initial encounter; R03.0 Elevated blood-pressure reading, without diagnosis of hypertension; Z94.4 Liver transplant status; Z87.891 Personal history of nicotine dependence; Z79.82 Long term (current) use of aspirin; Z79.891 Long term (current) use of opiate analgesic; Z79.52 Long term (current) use of systemic steroids; Z79.899 Other long term (current) drug therapy; Z88.8 Allergy status to other drugs, medicaments and biological substances